=== PATIENT | male | born 1965 | race Caucasian/White ===

== ENCOUNTER 2021-10-05 19:18 | Emergency (ER) | payer MEDICARE, SELFPAY ==
[2021-10-05 19:39] VITALS: BP 138/93; PULSE 103; RESP 16; TEMP 37.6; O2SAT 95; BMI 27.4
--- NOTE | 2021-10-05 20:15 | CTR_ITS ---
PROCEDURE INFORMATION: Exam: CT Angiography Head With Contrast, Arteriography Exam date and time: 10/05/2021 10:14 PM Age: 56 years old Clinical indication: Dizziness and giddiness; Prior surgery; Surgery type: Cervical fusion; Patient HX: C/O light headedness. History of parkinsons. ; Additional info: Light-headedness TECHNIQUE: Imaging protocol: Computed tomography angiography of the head with contrast. Exam focused on the arteries. 3D rendering (Not supervised by radiologist): MIP and/or 3D reconstructed images were created by the technologist. Radiation optimization: All CT scans at this facility use at least one of these dose optimization techniques: automated exposure control; mA and/or kV adjustment per patient size (includes targeted exams where dose is matched to clinical indication); or iterative reconstruction. Contrast material: OMNI 350; Contrast volume: 95 ml; Contrast route: INTRAVENOUS (IV); COMPARISON: CT head wo con* [id number] 10/05/2021 10:10 PM RADIATION DOSE METRICS: Total DLP (mGy-cm): 1990.08 FINDINGS: ANTERIOR CIRCULATION: Right internal carotid artery: Unremarkable. Intracranial segment is patent with no significant stenosis. No aneurysm. Right middle cerebral artery: Unremarkable. No occlusion or significant stenosis. No aneurysm. Right anterior cerebral artery: Unremarkable. No occlusion or significant stenosis. No aneurysm. Left internal carotid artery: Unremarkable. Intracranial segment is patent with no significant stenosis. No aneurysm. Left middle cerebral artery: Unremarkable. No occlusion or significant stenosis. No aneurysm. Left anterior cerebral artery: Unremarkable. No occlusion or significant stenosis. No aneurysm. POSTERIOR CIRCULATION: Right vertebral artery: Unremarkable. No occlusion or significant stenosis. No aneurysm. Left vertebral artery: Unremarkable. No occlusion or significant stenosis. No aneurysm. Basilar artery: Unremarkable. No occlusion or significant stenosis. No aneurysm. Right posterior cerebral artery: Unremarkable. No occlusion or significant stenosis. No aneurysm. Left posterior cerebral artery: Unremarkable. No occlusion or significant stenosis. No aneurysm. Brain: No definite mass, mass effect, or midline shift. Cerebral ventricles: No ventriculomegaly. Bones/joints: Unremarkable. No acute fracture. Soft tissues: Unremarkable. PROCEDURE INFORMATION: Exam: CT Angiography Neck With Contrast Exam date and time: 10/05/2021 10:14 PM Age: 56 years old Clinical indication: Dizziness and giddiness; Prior surgery; Surgery type: Cervical fusion; Patient HX: C/O light headedness. History of parkinsons. ; Additional info: Light-headedness TECHNIQUE: Imaging protocol: Computed tomography angiography of the neck with contrast. 3D rendering (Not supervised by radiologist): MIP and/or 3D reconstructed images were created by the technologist. Radiation optimization: All CT scans at this facility use at least one of these dose optimization techniques: automated exposure control; mA and/or kV adjustment per patient size (includes targeted exams where dose is matched to clinical indication); or iterative reconstruction. Contrast material: OMNI 350; Contrast volume: 95 ml; Contrast route: INTRAVENOUS (IV); COMPARISON: CT head wo con* [id number] 10/05/2021 10:10 PM RADIATION DOSE METRICS: Total DLP (mGy-cm): 1989. FINDINGS: Right common carotid artery: No stenosis. No dissection or occlusion. Right internal carotid artery: No stenosis of the extracranial segment. No dissection or occlusion. Right external carotid artery: No occlusion or stenosis of the origin. Left common carotid artery: No stenosis. No dissection or occlusion. Left internal carotid artery: No stenosis of the extracranial segment. No dissection or occlusion. Left external carotid artery: No occlusion or stenosis of the origin. Right vertebral artery: No stenosis. No dissection or occlusion. Left vertebral artery: No stenosis. No dissection or occlusion. Soft tissues: Normal. No significant soft tissue swelling. Bones/joints: No acute fracture. Multilevel anterior and posterior cervical spine fusion. Unremarkable alignment. CT/CT angio headneck* [id number] IMPRESSION: No large vessel stenosis or occlusion. IMPRESSION: No carotid artery stenosis or occlusion. REFERENCES: NASCET CRITERIA. The degree of internal carotid artery stenosis is based on NASCET criteria. Normal is no stenosis. Mild is less than 50% stenosis. Moderate is 50-69% stenosis. Severe is 70% to 99% stenosis. Total occlusion is no detectable patent lumen.
--- NOTE | 2021-10-05 20:15 | CTR_ITS ---
PROCEDURE INFORMATION: Exam: CT Head Without Contrast Exam date and time: 10/05/2021 10:10 PM Age: 56 years old Clinical indication: Dizziness; Additional info: Light-headedness TECHNIQUE: Imaging protocol: Computed tomography of the head without contrast. Radiation optimization: All CT scans at this facility use at least one of these dose optimization techniques: automated exposure control; mA and/or kV adjustment per patient size (includes targeted exams where dose is matched to clinical indication); or iterative reconstruction. COMPARISON: No relevant prior studies available. RADIATION DOSE METRICS: Total DLP (mGy-cm): 727 FINDINGS: Brain: Diffuse cerebral cortical atrophy. No hemorrhage. Unremarkable white matter. No mass effect. Cerebral ventricles: No ventriculomegaly. Paranasal sinuses: Visualized sinuses are unremarkable. No fluid levels. Mastoid air cells: Visualized mastoid air cells are well aerated. Bones/joints: Unremarkable. No acute fracture. Soft tissues: Unremarkable. CT/CT head wo con* [id number] IMPRESSION: No acute intracranial abnormality.
--- NOTE | 2021-10-05 20:15 | ECG_ITS ---
[facility] Test Date: 2021-10-05 Pat Name: Jude Burden Department: Room: Gender: Male Sign Maintenance: : 1965 Requested By: Morenita Mosley Order Number: [id number] Isabel MD: Miguelina Gupta M.D. Measurements Intervals [place] Rate: 97 P: 51 MD: 156 QRS: -9 QRSD: 101 T: 30 QT: 338 QTc: 430 Interpretive Statements SINUS RHYTHM MODERATE VOLTAGE CRITERIA FOR LVH, CONSIDER NORMAL VARIANT [MEETS CRITERIA IN ONE OF: R(aVL), S(V1), R(V5), R(V5/V6)+S(V1)] No previous ECG available for comparison Electronically Signed On 10-06-2021 6:07:24 CDT by Miguelina Gupta M.D. [id number]
--- NOTE | 2021-10-05 20:15 | XRR_ITS ---
PROCEDURE INFORMATION: Exam: XR Chest Exam date and time: 10/05/2021 8:21 PM Age: 56 years old Clinical indication: Chest wall pain; Additional info: Chest pain TECHNIQUE: Imaging protocol: XR of the chest. Views: 1 view. COMPARISON: No relevant prior studies available. FINDINGS: Lungs: Unremarkable. No consolidation. Pleural spaces: Unremarkable. No pleural effusion. No pneumothorax. Heart/Mediastinum: Unremarkable. No cardiomegaly. Bones/joints: Lower cervical spine fusion noted. No thoracic fractures. XR/XR chest 1V portable [id number] IMPRESSION: Negative exam. No acute abnormality.
--- NOTE | 2021-10-05 20:25 | ED_ITS ---
HPI - General Adult General: Chief complaint: Shortness of Breath/Dyspnea Stated complaint: Parkinsons acting up, feet hurting Time Seen by Provider: 10/05/21 19:59 History of Present Illness: Patient is a 56-year-old male with history of Parkinson's disease presenting to the emergency room with 2 complaints today. Patient tells me that for the last 2 weeks, he has bilateral leg cramping and pain. Patient says that the pain is worse at night. In addition, in the last 2 days, patient has experienced lightheadedness. Patient tells me that he has had multiple episodes of brief sensation of lightheadedness. He had lightheadedness episodes not accompanied by chest pain pain, shortness of breath, vertigo sensation, or any focal neurological weakness including facial droop, slurred speech, hoarseness of voice, or vision changes. Patient's reports that throughout the day, he has had 3 episodes of sharp chest pain lasting for few seconds at a time. Patient denies any exertional chest pain pleuritic chest pain, stabbing chest pain radiating towards the back. Patient denies any leg swelling. Patient denies any abdominal pain, nausea/vomiting, fever/chills, diaphoresis, other abdominal complaints or complaints. Onset: 2 weeks of leg pain b/l, 2 days of light-headedness Duration:ongoing/ intermittent Location:home Severity:moderate Associated symptoms: Deny chest pain, dyspnea, nausea, rash, palpitations or vomiting Review of Systems Const: Reports: other (+light-headedness); Denies: fever(s) or chills Eyes: Denies: change in vision ENMT: Denies: mouth pain Card: Denies: chest pain or palpitations Resp: Denies: dyspnea or non-productive cough GI: Denies: abdominal pain, nausea, vomiting or diarrhea : Denies: dysuria Musc: Reports: extremity pain (+b/l leg pain) Skin/Breast: Denies: rash or new lesions Neuro: Denies: weakness in extremities Psych: Reports: other (Normal mood) [place]/Lymph: Denies: easy bruising [facility] ED PFSH: Medical History (Updated 10/05/21 @ 20:28 by Morenita Mosley MD) Parkinsons disease Social History (Updated 10/05/21 @ 20:29 by Morenita Mosley MD) Smoking and tobacco status: never smoked Alcohol intake: former Physical Exam Const: COMMON NORMALS: alert HENMT: COMMON NORMALS: atraumatic HEAD & SCALP: atraumatic MOUTH: moist mucous membranes not abnormal Eye: COMMON NORMALS: EOMs intact bilaterally and conjunctivae normal CONJUNCTIVA: Yes conjunctivae normal Neck/C-Spine: COMMON NORMALS: full ROM and supple Resp: COMMON NORMALS: normal respiratory effort and clear to auscultation bilaterally AUSCULTATION: clear to auscultation bilaterally Cardio: COMMON NORMALS: regular rate RATE: regular rate GI: COMMON NORMALS: Soft to palpation and non-tender PALPATION: Yes Soft to palpation Extremity: COMMON NORMALS: full ROM Neuro: SENSORIUM/ORIENTATION: Yes alert MOTOR EXAM: No Abnormal motor strength present and Other motor observations present (no focal motor deficits) OTHER: Mental status? Awake, alert, and oriented to self, year, month, location, and situation.? Following simple axial and appendicular commands.? Has appropriate fund of knowledge, comprehension, and insight.? Able to recall and understands pertinent aspects of medical history and current treatment status.? ? Language? Speech is fluent without word-finding difficulties.? Intact naming, expression, weekend receptionist, and repetition.? ? Cranial nerves? 2,3,4,6: PERRL, EOMI with no nystagmus. 5: Intact sensation to light touch, symmetric? 7: Smile symmetrical, no facial droop.? 8: Hearing grossly intact.? 9,10: Normal palate movement.? 11: Normal strength in trapezius bilaterally 12: Tongue protrudes midline.? ? Motor examination? Normal bulk & tone. Strength as follows (R/L): Delts (5/5), Biceps (5/5), Triceps (5/5), Wrist ext (5/5), hip flexors (5/5), plantarflexors (5/5), dorsiflexors (5/5). ? Sensation? Light Touch: Grossly intact and equal in upper and lower extremities bilaterally? Romberg: Negative.? Distal joint position sense intact ? Coordination? [id number]-finger movements intact without dysmetria or past-pointing.? Rapid fingertaps: preserved amplitude without decriment.? No tremor, myoclonus or truncal ataxia.? ? Gait/stance? Steady, normal narrow base gait with appropriate arm swing and turning.? Tandem gait without hesitation or loss of balance. Psych: COMMON NORMALS: speech normal SPEECH: Yes normal speech MOOD & AFFECT: Yes euthymic mood Course Vital Signs: Vital signs: Vital Signs Temperature 99.6 F 10/05/21 19:39 Pulse Rate 89 10/06/21 00:10 Respiratory Rate 18 10/06/21 00:10 Blood Pressure 148/99 10/06/21 00:10 Pulse Oximetry 97 10/06/21 00:10 MDM - General Adult Medical Decision Making 56-year-old male with a history of Parkinson's disease presenting to the emergency room with 2 weeks of leg pain, 2 days of lightheadedness, shortness of breath and intermittent chest pain. On physical exam, patient is neurologically intact. Hemodynamically stable. Patient with no acute tachycardia in triage however on arrival, patient's normal heart rate. EKG is nonischemic. Troponin x2 with with delta <5. CT head./ CTA head+ negative negative for any acute finding. I performed shared decision-making with patient regarding admission versus disc harge today, and patient prefers to be discharged. I explained the risks of leaving the [facility] today including possible arrhythmia, [place], and even . Patient verbalizes understanding of these discussed risk and elect for the alternative of going home with close followup with PCP and Cardiology. Patient verbalizes understanding to return for any worsening symptoms including lightheadedness, focal weakness, passing out, loss of consciousness, chest pain, shortness, or any new extreme complaints I have given patient follow up with our community case manager to be seen by our outpatient Cardiology for further cardiac evaluation. Patient aware of a call from our community case manager to schedule for appointment(s) and verbalizes understanding of the importance of following up. Disposition: Discharge. Patient counseled regarding diagnostic impression, treatment plan. Patient given ED strict return precautions to return for continuation, worsening, or development of new symptoms. Instructed to f/u w/ PCP and Cardiology regarding symptoms today. Patient verbalized understanding. Patient is given strict return precaution for any signs of weakness, chest pain, difficulty breathing, or any new or concerning complaints. Lab Data : 10/05/21 20:40 10/05/21 20:40 Radiology Impressions Chest X-Ray 10/05/21 20:15 IMPRESSION: Negative exam. No acute abnormality. Head CT 10/05/21 20:15 IMPRESSION: No acute intracranial abnormality. Head/Neck CTA 10/05/21 20:15 IMPRESSION: No large vessel stenosis or occlusion. IMPRESSION: No carotid artery stenosis or occlusion. REFERENCES: NASCET CRITERIA. The degree of internal carotid artery stenosis is based on NASCET criteria. Normal is no stenosis. Mild is less than 50% stenosis. Moderate is 50-69% stenosis. Severe is 70% to 99% stenosis. Total occlusion is no detectable patent lumen. Laboratory Results WBC 11.8 10^3/uL (4.0-10.0) H 10/05/21 20:40 RBC 5.69 10^6/uL (4.1-5.3) H 10/05/21 20:40 Hgb 16.4 g/dL (11.7-16.6) 10/05/21 20:40 Hct 51.4 % (42.0-52.0) 10/05/21 20:40 MCV 90.3 fl (80-94) 10/05/21 20:40 MCH 28.8 pg (28.0-34.0) 10/05/21 20:40 MCHC 31.9 g/dL (30.0-36.0) 10/05/21 20:40 RDW 14.9 % (12.1-15.1) 10/05/21 20:40 Plt Count 305 10^3/cmm (130-400) 10/05/21 20:40 MPV 9.3 fL (7.4-10.4) 10/05/21 20:40 Neut % (Auto) 81.7 % 10/05/21 20:40 Lymph % (Auto) 12.1 % 10/05/21 20:40 [place] % (Auto) 4.9 % 10/05/21 20:40 Eos % (Auto) 0.6 % 10/05/21 20:40 Baso % (Auto) 0.4 % 10/05/21 20:40 Neut # (Auto) 9.63 10^3/uL (1.8-7.7) H 10/05/21 20:40 Lymph # (Auto) 1.4 10^3/uL (0.8-4.8) 10/05/21 20:40 [place] # (Auto) 0.6 10^3/uL (0.2-0.9) 10/05/21 20:40 Eos # (Auto) 0.1 10^3/uL (0.0-0.8) 10/05/21 20:40 Baso # (Auto) 0.1 10^3/uL (0.0-0.1) 10/05/21 20:40 Nucleated RBC % (auto) 0 % 10/05/21 20:40 Nucleated RBCs # 0.0 /100WBC 10/05/21 20:40 D-Dimer 0.51 ug/mIFEU (0-0.59) 10/05/21 20:40 Sodium 140 mmol/L (136-145) 10/05/21 20:40 Potassium 3.7 mmol/L (3.5-5.1) 10/05/21 20:40 Chloride 100 mmol/L (98-107) 10/05/21 20:40 Carbon Dioxide 27 mmol/L (22-29) 10/05/21 20:40 Anion Gap 16.7 (5-19) 10/05/21 20:40 BUN 9 mg/dL (6-20) 10/05/21 20:40 Creatinine 0.7 mg/dL (0.7-1.2) 10/05/21 20:40 GFR Calculation 116.2 mL/min (90-130) 10/05/21 20:40 Glucose 96 mg/dL (65-115) 10/05/21 20:40 Calculated Osmolality 289 mOsm/kg (285-295) 10/05/21 20:40 Calcium 10.2 mg/dL (8.5-10.5) 10/05/21 20:40 Total Bilirubin 0.3 mg/dL (0.15-1.2) 10/05/21 20:40 AST 15 U/L (0-40) 10/05/21 20:40 ALT < 5 U/L (0-41) 10/05/21 20:40 Alkaline Phosphatase 81 IU/L (40-130) 10/05/21 20:40 Troponin T Baseline 8 ng/L (0-15) 10/05/21 20:40 Troponin T 120 Minute 8.40 ng/L (0-15) 10/05/21 22:53 Delta Troponin T 0.40 ABS# (0-10) 10/05/21 22:53 Total Protein 7.3 g/dL (6.6-8.7) 10/05/21 20:40 Albumin 4.3 g/dL (3.5-5.2) 10/05/21 20:40 Globulin 3.0 g/dL (1.3-4.6) 10/05/21 20:40 Lipase 30 U/L (13-60) 10/05/21 20:40 Imaging Data Other Imaging: Radiologist's impression: [email or web address] [address] [place] [address] CT Scan Report Signed Patient: Jude Burden Unit #: [id number] : 1965 Age/Sex: 56 / M ADM Date: 10/05/21 Loc: ER Room/Bed: Attending Dr: Ordering Provider/Ordering MD: Morenita Mosley MD Date of Service: 10/05/21 Procedure(s): CT angio headneck* [id number] Accession Number(s): [id number] Report Number: [id number] PROCEDURE INFORMATION: Exam: CT Angiography Head With Contrast, Arteriography Exam date and time: 10/05/2021 10:14 PM Age: 56 years old Clinical indication: Dizziness and giddiness; Prior surgery; Surgery type: Cervical fusion; Patient HX: C/O light headedness. History of parkinsons. ; Additional info: Light-headedness TECHNIQUE: Imaging protocol: Computed tomography angiography of the head with contrast. Exam focused on the arteries. 3D rendering (Not supervised by radiologist): MIP and/or 3D reconstructed images were created by the technologist. Radiation optimization: All CT scans at this facility use at least one of these dose optimization techniques: automated exposure control; mA and/or kV adjustment per patient size (includes targeted exams where dose is matched to clinical indication); or iterative reconstruction. Contrast material: OMNI 350; Contrast volume: 95 ml; Contrast route: INTRAVENOUS (IV);? COMPARISON: CT head wo con* [id number] 10/05/2021 10:10 PM RADIATION DOSE METRICS: Total DLP (mGy-cm): FINDINGS: ANTERIOR CIRCULATION: Right internal carotid artery: Unremarkable. Intracranial segment is patent with no significant stenosis. No aneurysm. Right middle cerebral artery: Unremarkable. No occlusion or significant stenosis. No aneurysm.? Right anterior cerebral artery: Unremarkable. No occlusion or significant stenosis. No aneurysm.? Left internal carotid artery: Unremarkable. Intracranial segment is patent with no significant stenosis. No aneurysm. Left middle cerebral artery: Unremarkable. No occlusion or significant stenosis. No aneurysm.? Left anterior cerebral artery: Unremarkable. No occlusion or significant stenosis. No aneurysm.? POSTERIOR CIRCULATION: Right vertebral artery: Unremarkable. No occlusion or significant stenosis. No aneurysm.? Left vertebral artery: Unremarkable. No occlusion or significant stenosis. No aneurysm.? Basilar artery: Unremarkable. No occlusion or significant stenosis. No aneurysm. Right posterior cerebral artery: Unremarkable. No occlusion or significant stenosis. No aneurysm.? Left posterior cerebral artery: Unremarkable. No occlusion or significant stenosis. No aneurysm.? Brain: No definite mass, mass effect, or midline shift. Cerebral ventricles: No ventriculomegaly. Bones/joints: Unremarkable. No acute fracture. Soft tissues: Unremarkable. PROCEDURE INFORMATION: Exam: CT Angiography Neck With Contrast Exam date and time: 10/05/2021 10:14 PM Age: 56 years old Clinical indication: Dizziness and giddiness; Prior surgery; Surgery type: Cervical fusion; Patient HX: C/O light headedness. History of parkinsons. ; Additional info: Light-headedness TECHNIQUE: Imaging protocol: Computed tomography angiography of the neck with contrast. 3D rendering (Not supervised by radiologist): MIP and/or 3D reconstructed images were created by the technologist. Radiation optimization: All CT scans at this facility use at least one of these dose optimization techniques: automated exposure control; mA and/or kV adjustment per patient size (includes targeted exams where dose is matched to clinical indication); or iterative reconstruction. Contrast material: OMNI 350; Contrast volume: 95 ml; Contrast route: INTRAVENOUS (IV);? COMPARISON: CT head wo con* [id number] 10/05/2021 10:10 PM RADIATION DOSE METRICS: Total DLP (mGy-cm): FINDINGS: Right common carotid artery: No stenosis. No dissection or occlusion. Right internal carotid artery: No stenosis of the extracranial segment. No dissection or occlusion. Right external carotid artery: No occlusion or stenosis of the origin.? Left common carotid artery: No stenosis. No dissection or occlusion. Left internal carotid artery: No stenosis of the extracranial segment. No dissection or occlusion. Left external carotid artery: No occlusion or stenosis of the origin.? Right vertebral artery: No stenosis. No dissection or occlusion. Left vertebral artery: No stenosis. No dissection or occlusion. Soft tissues: Normal. No significant soft tissue swelling. Bones/joints: No acute fracture.? Multilevel anterior and posterior cervical spine fusion.? Unremarkable alignment. CT/CT angio headneck* [id number] IMPRESSION: No large vessel stenosis or occlusion. ? ? IMPRESSION: No carotid artery stenosis or occlusion. ? REFERENCES: NASCET CRITERIA. The degree of internal carotid artery stenosis is based on NASCET criteria. Normal is no stenosis. Mild is less than 50% stenosis. Moderate is 50-69% stenosis. Severe is 70% to 99% stenosis. Total occlusion is no detectable patent lumen. ? Dictated By: Kelechi García Signed By: Kelechi Garcaí Signed Date/Time: 10/05/212230 DD/ [address] [address] [address] Scan Report Signed Patient: Jude Burden Unit #: [id number] : 1965 Age/Sex: 56 / M ADM Date: 10/05/21 Loc: ER Room/Bed: Attending Dr: Ordering Provider/Ordering MD: Morenita Mosley MD Date of Service: 10/05/21 Procedure(s): CT head wo con* [id number] Accession Number(s): [id number] Report Number: [id number] PROCEDURE INFORMATION: Exam: CT Head Without Contrast Exam date and time: 10/05/2021 10:10 PM Age: 56 years old Clinical indication: Dizziness; Additional info: Light-headedness TECHNIQUE: Imaging protocol: Computed tomography of the head without contrast. Radiation optimization: All CT scans at this facility use at least one of these dose optimization techniques: automated exposure control; mA and/or kV adjustment per patient size (includes targeted exams where dose is matched to clinical indication); or iterative reconstruction. COMPARISON: No relevant prior studies available. RADIATION DOSE METRICS: Total DLP (mGy-cm): 727 FINDINGS: Brain: Diffuse cerebral cortical atrophy. No hemorrhage. Unremarkable white matter. No mass effect. Cerebral ventricles: No ventriculomegaly. Paranasal sinuses: Visualized sinuses are unremarkable. No fluid levels. Mastoid air cells: Visualized mastoid air cells are well aerated. Bones/joints: Unremarkable. No acute fracture. Soft tissues: Unremarkable. CT/CT head wo con* [id number] IMPRESSION: No acute intracranial abnormality. ? Dictated By: Kelechi García Signed By: Kelechi García Signed Date/Time: 10/05/212225 DD/ [address] [address] XRay Report Signed Patient: Jude Burden Unit #: [id number] : 1965 Age/Sex: 56 / M ADM Date: 10/05/21 Loc: ER Room/Bed: Attending Dr: Ordering Provider/Ordering MD: Morenita Mosley MD Date of Service: 10/05/21 Procedure(s): XR chest 1V portable [id number] Accession Number(s): [id number] Report Number: [id number] PROCEDURE INFORMATION: Exam: XR Chest Exam date and time: 10/05/2021 8:21 PM Age: 56 years old Clinical indication: Chest wall pain; Additional info: Chest pain TECHNIQUE: Imaging protocol: XR of the chest. Views: 1 view. COMPARISON: No relevant prior studies available. FINDINGS: Lungs: Unremarkable. No consolidation. Pleural spaces: Unremarkable. No pleural effusion. No pneumothorax. Heart/Mediastinum: Unremarkable. No cardiomegaly. Bones/joints: Lower cervical spine fusion noted. No thoracic fractures. XR/XR chest 1V portable [id number] IMPRESSION: Negative exam. No acute abnormality. ? Dictated By: Kelechi García Signed By: Kelechi García Signed Date/Time: 10/05/212126 DD/ 20 Discharge Plan Discharge Patient Disposition: Home Clinical Impression: Light headedness, Dyspnea Condition: Stable Prescriptions: No Action carbidopa-levodopa 25-250 mg Tablet 1 tab PO QID 0RF omeprazole 40 mg Capsule,Delayed Release(Dr/Ec) 40 mg PO DAILY 0RF colchicine 0.6 mg Tablet 0.6 mg PO DAILY PRN (Reason: gout) 0RF Discharge Orders: Discharge ED (Routine); Ordered 10/05/21 Ordered By: Morenita Mosley Discharge Diet: Advance as tolerated Discharge Activity: Increase activity as tolerated Patient Instructions: Lightheadedness (ED) Activity Restrictions/Additional Instructions: Our community case manager will have you follow-up with Cardioogy in the next few days for evaluation of chest pain and light-headedness. You would be expected to have a phone call with our community case manager who will put you on the schedule. You can expect a call from us in the next 2-3 days. If you don't hear from us, call us back in the emergency room at [phone]. Come back to the emergency room if your chest pain worsens, have any fever or chills, worsening shortness of breath, worsening exertional lightheadedness, or any new or concerning complaints. 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
[2021-10-05 20:55] LABS: Basophils # 0.1 10^3/uL (0.0-0.1); Basophils % 0.4 %; Eosinophils # 0.1 10^3/uL (0.0-0.8); Eosinophils % 0.6 %; Hematocrit 51.4 % (42.0-52.0); Hemoglobin 16.4 g/dL (11.7-16.6); Lymphocytes # 1.4 10^3/uL (0.8-4.8); Lymphocytes % 12.1 %; Mean Corpuscular HGB Conc 31.9 g/dL (30.0-36.0); Mean Corpuscular Hemoglobin 28.8 pg (28.0-34.0); Mean Corpuscular Volume 90.3 fl (80-94); Mean Platelet Volume 9.3 fL (7.4-10.4); Monocytes # 0.6 10^3/uL (0.2-0.9); Monocytes % 4.9 %; Neutrophils # 9.63 10^3/uL (1.8-7.7); Neutrophils % 81.7 %; Nucleated Red Blood Cells % 0 %; Platelet Count 305 10^3/cmm (130-400); Red Blood Count 5.69 10^6/uL (4.1-5.3); Red Cell Distribution Width 14.9 % (12.1-15.1); White Blood Count 11.8 10^3/uL (4.0-10.0)
[2021-10-05 21:15] LABS: Alanine Aminotransferase < 5 U/L (0-41); Albumin Level 4.3 g/dL (3.5-5.2); Alkaline Phosphatase 81 IU/L (40-130); Aspartate Amino Transferase 15 U/L (0-40); Blood Urea Nitrogen 9 mg/dL (6-20); Calcium 10.2 mg/dL (8.5-10.5); Carbon Dioxide 27 mmol/L (22-29); Chloride 100 mmol/L (98-107); Glomerular Filtration Rate 116.2 mL/min (90-130); Glucose 96 mg/dL (65-115); Lipase 30 U/L (13-60); Osmolality Calculated 289 mOsm/kg (285-295); Sodium 140 mmol/L (136-145); Total Bilirubin 0.3 mg/dL (0.15-1.2); Total Protein 7.3 g/dL (6.6-8.7)
[2021-10-05 21:16] LABS: Troponin(5th) Baseline 8 ng/L (0-15)
[2021-10-05 21:23] LABS: Anion Gap 16.7 (5-19); Potassium 3.7 mmol/L (3.5-5.1)
[2021-10-05 21:24] LABS: D Dimer 0.51 ug/mIFEU (0-0.59)
[2021-10-05] MEDS: morphine 4 mg/mL SDV 1 mL IVP (21:41)
[2021-10-05] MEDS: sodium chloride 0.9% 1,000 ML 999 ML IV (21:41)
[2021-10-05] MEDS: acetaminophen 500 mg Tablet PO (21:41)
[2021-10-05 21:44] VITALS: PULSE 85; RESP 18; O2SAT 95
[2021-10-05] MEDS: iohexol 350 mg/mL 100 mL Btl IV (22:13)
[2021-10-06 00:10] VITALS: BP 148/99; PULSE 89; RESP 18; O2SAT 97
--- NOTE | 2021-10-06 09:55 | DCPLANNER ---
Addendum entered by Rosemarie Lechuga 11/02/21 10:08: Patient had a follow up appointment scheduled for 11.01.21 with [facility] - patient did not attend appointment. Addendum entered by Rosemarie Lechuga 10/12/21 16:40: Patient has a follow up appointment scheduled for Monday, November 01, 2021 at 2:[address] El at [facility]. manager strategic development called patient and gave patient the appointment information. Original Note: manager strategic development had message to schedule a follow up appointment for patient with heart care. manager strategic development sent patients information to the front office staff at [facility]. Patients information will be printed and reviewed. Clinic will notify heel caser of the scheduled appointment. manager strategic development will call patient with appointment information.
== END 2021-10-06 00:11 | disposition home or self-care (01) ==
PROVIDERS: Emergency Provider Emergency Medicine
DX: R06.00 Dyspnea, unspecified (principal); R42 Dizziness and giddiness; G20 Parkinson's disease
CPT/HCPCS: 70450; 70496; 70498; 71045; 80053; 83690; 84484; 85025; 85378; 93005; 96361; 96374; 99284; J2270; J7030; Q9967

== ENCOUNTER 2021-11-05 13:41 | Emergency (ER) | payer MEDICARE, MEDICAID, SELFPAY ==
[2021-11-05 13:55] VITALS: BP 146/119; PULSE 80; RESP 16; O2SAT 95; BMI 27.4
--- NOTE | 2021-11-05 14:02 | ECG_ITS ---
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 Measurements Intervals [place] Rate: 88 P: 58 FL: 157 QRS: 8 QRSD: 92 T: 43 QT: 351 QTc: 425 Interpretive Statements SINUS RHYTHM Compared to ECG 10/05/2021 20:28:06 No significant changes Electronically Signed On 11-06-2021 8:04:53 CDT by Rashad El M.D. [id number]
--- NOTE | 2021-11-05 14:02 | XRR_ITS ---
PROCEDURE INFORMATION: Exam: XR Chest Exam date and time: 11/05/2021 2:12 PM Age: 56 years old Clinical indication: Pain; Chest pressure; Additional info: Cp TECHNIQUE: Imaging protocol: XR of the chest. Views: 1 view. COMPARISON: CR (CHEST, ) 10/05/2021 8:21 PM FINDINGS: Lungs: Unremarkable. No consolidation. Pleural spaces: Unremarkable. No pleural effusion. No pneumothorax. Heart/Mediastinum: Unremarkable. No cardiomegaly. Bones/joints: Partially visualized spinal fusion hardware in the lower cervical spine. Visualized osseous structures are intact. XR/XR chest 1V portable [id number] IMPRESSION: No acute findings.
--- NOTE | 2021-11-05 14:09 | W.ED.ABDPA2 ---
HPI - Abdominal Pain General: Chief Complaint: Abdominal Pain Stated Complaint: headache, chest/abd pain Time Seen by Provider: 11/05/21 14:00 Source: patient Mode of arrival: ambulatory Limitations: no limitations History of Present Illness: 56-year-old male states that he was seen here a month ago for chest pain had a normal work-up he supposed to follow-up with cardiology and appointment Saturday but states he missed due to moving. He states that he woke up again this morning having some pain in his chest mainly left chest and left upper abdomen he is also been having a headache he states his headaches have been chronic as well he denies any worsening proving factors states pain is a 6 out of 10 currently denies any vomiting. Associated Symptoms: Denies chills, dysuria and fever(s) Review of Systems Const: Denies: fever(s), chills, body aches or change in appetite Eyes: Denies: blurry vision or eye discomfort ENMT: Denies: throat pain or dental pain Card: Reports: chest pain Resp: Denies: dyspnea GI: Reports: abdominal pain : Denies: dysuria Musc: Denies: neck pain or back pain Skin/Breast: Denies: rash Neuro: Reports: headache(s) Psych: Denies: depression [place]/Lymph: Denies: easy bruising All/Imm: Denies: urticaria PFSH ED PFSH: Medical History Parkinsons disease Social History Smoking and tobacco status: never smoked Alcohol intake: former Physical Exam Const: COMMON NORMALS: no acute distress, patient oriented x3 and healthy appearing HENMT: COMMON NORMALS: normocephalic and atraumatic HEAD & SCALP: normocephalic and atraumatic Eye: COMMON NORMALS: Equal, round and reactive pupils present and EOMs intact bilaterally PUPIL: Yes Equal, round and reactive pupils present Neck/C-Spine: COMMON NORMALS: full ROM and supple Chest: COMMONS NORMALS: normal inspection of the chest and normal palpation of entire chest wall Resp: COMMON NORMALS: normal respiratory effort, No retractions, No use of accessory muscles and clear to auscultation bilaterally AUSCULTATION: clear to auscultation bilaterally Cardio: COMMON NORMALS: regular rate, regular rhythm and No murmurs present (Cardio) RATE: regular rate RHYTHM: regular rhythm GI: COMMON NORMALS: Normal to inspection, nondistended, normoactive bowel sounds present, Soft to palpation, non-tender and no masses PALPATION: Yes Soft to palpation Extremity: COMMON NORMALS: normal to inspection and full ROM Neuro: COMMON NORMALS: patient oriented x3, moves all extremities and no focal motor deficits Psych: COMMON NORMALS: mental status grossly normal, Normal thought process present and cooperative THOUGHT PROCESS: Normal thought process present Skin: COMMON NORMALS: no rashes or lesions noted and no wounds GENERAL SKIN EXAM: no rashes or lesions noted Course Vital Signs: Vital signs: Vital Signs Pulse Rate 80 11/05/21 13:55 Respiratory Rate 16 11/05/21 14:55 Blood Pressure 146/119 11/05/21 13:55 Pulse Oximetry 95 11/05/21 13:55 MDM - Abdominal Pain Medical Decision Making Patient presents here with chest and abdominal pains atypical in nature initial repeat troponins here are all negative x-ray is negative as well he feels improved we will get him another follow-up with cardiology he is return if worsening he understands agrees to plan. Lab Data : 11/05/21 14:31 11/05/21 14:31 Labs/Radiology: Radiology Impressions Chest X-Ray 11/05/21 14:02 IMPRESSION: No acute findings. Laboratory Results WBC 5.8 10^3/uL (4.0-10.0) 11/05/21 14:31 RBC 6.27 10^6/uL (4.1-5.3) H 11/05/21 14:31 Hgb 18.0 g/dL (11.7-16.6) H 11/05/21 14:31 Hct 54.6 % (42.0-52.0) H 11/05/21 14:31 MCV 87.1 fl (80-94) 11/05/21 14:31 MCH 28.7 pg (28.0-34.0) 11/05/21 14:31 MCHC 33.0 g/dL (30.0-36.0) 11/05/21 14:31 RDW 14.5 % (12.1-15.1) 11/05/21 14:31 Plt Count 239 10^3/cmm (130-400) 11/05/21 14:31 MPV 9.1 fL (7.4-10.4) 11/05/21 14:31 Neut % (Auto) 58.4 % 11/05/21 14:31 Lymph % (Auto) 30.7 % 11/05/21 14:31 Maverick % (Auto) 6.6 % 11/05/21 14:31 Eos % (Auto) 3.3 % 11/05/21 14:31 Baso % (Auto) 0.7 % 11/05/21 14:31 Neut # (Auto) 3.37 10^3/uL (1.8-7.7) 11/05/21 14: Lymph # (Auto) 1.8 10^3/uL (0.8-4.8) 11/05/21 14: Maverick # (Auto) 0.4 10^3/uL (0.2-0.9) 11/05/21 14: Eos # (Auto) 0.2 10^3/uL (0.0-0.8) 11/05/21 14: Baso # (Auto) 0.0 10^3/uL (0.0-0.1) 11/05/21 14: Nucleated RBC % (auto) 0 % 11/05/21 14: Nucleated RBCs # 0.0 /100WBC 11/05/21 14:31 Sodium 138 mmol/L (136-145) 11/05/21 14:31 Potassium 3.7 mmol/L (3.5-5.1) 11/05/21 14: Chloride 100 mmol/L (98-107) 11/05/21 14: Carbon Dioxide 27 mmol/L (22-29) 11/05/21 14:31 Anion Gap 14.7 (5-19) 11/05/21 14:31 BUN 8 mg/dL (6-20) 11/05/21 14: Creatinine 0.7 mg/dL (0.7-1.2) 11/05/21 14:31 GFR Calculation 116.2 mL/min (90-130) 11/05/21 14:31 Glucose 93 mg/dL (65-115) 11/05/21 14: Calculated Osmolality 284 mOsm/kg (285-295) L 11/05/21 14:31 Calcium 9.2 mg/dL (8.5-10.5) 11/05/21 14:31 Total Bilirubin 0.4 mg/dL (0.15-1.2) 11/05/21 14:31 AST 17 U/L (0-40) 11/05/21 14:31 ALT < 5 U/L (0-41) 11/05/21 14:31 Alkaline Phosphatase 85 IU/L (40-130) 11/05/21 14:31 Troponin T Baseline 9 ng/L (0-15) 11/05/21 14:31 Troponin T 120 Minute 8.32 ng/L (0-15) 11/05/21 16:26 Total Protein 7.9 g/dL (6.6-8.7) 11/05/21 14:31 Albumin 4.6 g/dL (3.5-5.2) 11/05/21 14:31 Globulin 3.3 g/dL (1.3-4.6) 11/05/21 14:31 Lipase 75 U/L (13-60) H 11/05/21 14:31 EKG Data EKG 1: I personally reviewed and interpreted this EKG as follows: EKG interpretation date: 11/05/21 EKG interpretation time: 14:10 Interpretation: nsr hr [address] or t wave abnormalities qrs 92 qtc 396 EKG 2: I personally reviewed and interpreted this EKG as follows: EKG interpretation date: 11/05/21 EKG interpretation time: 17:13 Interpretation: nsr hr [address] or t wave abnormalities qrs 96 qtc 398 Discharge Plan Discharge Patient Disposition: Home Clinical Impression: Chest pain Qualifiers: Chest pain type: unspecified Qualified Code(s): R07.9 - Chest pain, unspecified Abdominal pain Qualifiers: Abdominal location: generalized Qualified Code(s): R10.84 - Generalized abdominal pain Condition: Stable Prescriptions: New docusate sodium 100 mg capsule 100 mg PO TID PRN (Reason: constipation) Qty: 20 0RF No Action carbidopa-levodopa 25-250 mg Tablet 1 tab PO QID 0RF omeprazole 40 mg Capsule,Delayed Release(Dr/Ec) 40 mg PO DAILY 0RF colchicine 0.6 mg Tablet 0.6 mg PO DAILY PRN (Reason: gout) 0RF Discharge Orders: Discharge ED (Routine); Ordered 11/05/21 Ordered By: Heidi Abreu Referrals: Rashad El M.D [Physician] - 1-3 days Discharge Diet: Advance as tolerated Discharge Activity: Resume usual activity Patient Instructions: Chest Pain (ED) Coding Level of Care Code ED Stitch Bonder Machine Operator Helper for Chg Fwd Exam Comprehensive
[2021-11-05 14:34] LABS: Basophils % 0.7 %; Eosinophils # 0.2 10^3/uL (0.0-0.8); Eosinophils % 3.3 %; Hematocrit 54.6 % (42.0-52.0); Lymphocytes # 1.8 10^3/uL (0.8-4.8); Lymphocytes % 30.7 %; Mean Corpuscular Hemoglobin 28.7 pg (28.0-34.0); Mean Corpuscular Volume 87.1 fl (80-94); Mean Platelet Volume 9.1 fL (7.4-10.4); Monocytes # 0.4 10^3/uL (0.2-0.9); Monocytes % 6.6 %; Neutrophils # 3.37 10^3/uL (1.8-7.7); Neutrophils % 58.4 %; Nucleated Red Blood Cells % 0 %; Platelet Count 239 10^3/cmm (130-400); Red Blood Count 6.27 10^6/uL (4.1-5.3); Red Cell Distribution Width 14.5 % (12.1-15.1); White Blood Count 5.8 10^3/uL (4.0-10.0)
[2021-11-05] MEDS: aspirin 81 mg Chew Tablet 324 MG PO (14:36)
[2021-11-05] MEDS: nitroglycerin 0.4 mg sublingual Tablet SUBLINGUAL (14:38)
[2021-11-05 14:55] VITALS: RESP 16
[2021-11-05] MEDS: ondansetron 2 mg/ML SDV 2 mL 4 MG IVP (14:55)
[2021-11-05] MEDS: morphine 4 mg/mL SDV 1 mL IVP (14:55)
[2021-11-05 14:58] LABS: Alanine Aminotransferase < 5 U/L (0-41); Albumin Level 4.6 g/dL (3.5-5.2); Alkaline Phosphatase 85 IU/L (40-130); Anion Gap 14.7 (5-19); Aspartate Amino Transferase 17 U/L (0-40); Blood Urea Nitrogen 8 mg/dL (6-20); Calcium 9.2 mg/dL (8.5-10.5); Carbon Dioxide 27 mmol/L (22-29); Chloride 100 mmol/L (98-107); Globulin 3.3 g/dL (1.3-4.6); Glomerular Filtration Rate 116.2 mL/min (90-130); Glucose 93 mg/dL (65-115); Lipase 75 U/L (13-60); Osmolality Calculated 284 mOsm/kg (285-295); Potassium 3.7 mmol/L (3.5-5.1); Sodium 138 mmol/L (136-145); Total Bilirubin 0.4 mg/dL (0.15-1.2); Total Protein 7.9 g/dL (6.6-8.7)
[2021-11-05 14:59] LABS: Troponin(5th) Baseline 9 ng/L (0-15)
[2021-11-05 16:00] VITALS: BP 135/80; PULSE 75; RESP 17; O2SAT 96
[2021-11-05 17:00] VITALS: BP 134/86; PULSE 69; RESP 16; O2SAT 97
[2021-11-05 17:11] LABS: Troponin 5 2HR 8.32 ng/L (0-15)
[2021-11-05 17:43] LABS: Troponin 5 2HR Delta -0.68 ABS# (0-10)
[2021-11-05 18:11] VITALS: BP 148/95; PULSE 67; RESP 14; O2SAT 96
--- NOTE | 2021-11-05 20:02 | ECG_ITS ---
[facility] Test Date: 2021-11-05 Pat Name: Jude Burden Department: Room: Gender: Male Physicians And Surgeons: : 1965 Requested By: Heidi Abreu Order Number: [id number] Isabel MD: Rashad El M.D. Measurements Intervals [place] Rate: 63 P: 53 [place]: 167 QRS: 17 QRSD: 96 T: 42 QT: 390 QTc: 402 Interpretive Statements SINUS RHYTHM Compared to ECG 11/05/2021 14:10:46 No significant changes Electronically Signed On 11-06-2021 8:06:09 CDT by Rashad El M.D. [id number]
--- NOTE | 2021-11-09 06:02 | DCPLANNER ---
Addendum entered by Rosemarie Lechuga 01/18/22 11:06: Patient had a follow up appointment scheduled with [facility] - patient did attend appointment. Addendum entered by Rosemarie Lechuga 11/12/21 09:21: Patient has a follow up appointment scheduled for Saturday, January 08, 2022 at 1:[address] El at [facility] [place]. Clinic will call patient with appointment information. Addendum entered by Rosemarie Lechuga 11/12/21 09:19: Patient had a follow up appointment scheduled for 11.10.21 with [facility] - patient did attend appointment. Original Note: manager of medical had message to schedule a follow up appointment for patient with [facility]. manager of medical sent patients information to the front office of [facility]. Patients information will be printed and reviewed. Clinic will call patient with appointment information.
== END 2021-11-05 18:20 | disposition home or self-care (01) ==
PROVIDERS: Emergency Provider Emergency Medicine
DX: R07.9 Chest pain, unspecified (principal); R10.9 Unspecified abdominal pain
CPT/HCPCS: 71045; 80053; 83690; 84484; 85025; 93005; 96374; 96375; 99285; J2270; J2405

== ENCOUNTER 2021-12-06 15:21 | Emergency (ER) | payer MEDICARE, MEDICAID, SELFPAY ==
--- NOTE | 2021-12-06 15:24 | ECG_ITS ---
[facility] Test Date: 2021-12-06 Pat Name: Jude Burden Department: Room: Gender: Male Recreational Resort Manager: : 1965 Requested By: Leticia Love Order Number: [id number] Isabel MD: Miguelina Gupta M.D. Measurements Intervals [place] Rate: 89 P: 53 [place]: 152 QRS: -4 QRSD: 79 T: 38 QT: 349 QTc: 426 Interpretive Statements SINUS RHYTHM Compared to ECG 11/05/2021 17:13:59 No significant changes Electronically Signed On 12-06-2021 22:25:14 CDT by Miguelina Gupta M.D. [id number] f
--- NOTE | 2021-12-06 15:24 | XR_ITS ---
WS: [id number] Exam: XR chest 1V portable [id number] Date/Time of Exam: 12/06/2021 3:35 PM Reason For Exam: chest pain Comparison 11/05/2021. The lungs are clear and fully expanded. Normal cardiomediastinal silhouette. Bony structures are inta ct. Fusion hardware noted in the lower cervical and upper thoracic spine. XR/XR chest 1V portable [id number] IMPRESSION: 1. No acute cardiopulmonary finding.
[2021-12-06 15:33] VITALS: BP 151/93; PULSE 89; RESP 18; TEMP 37.2; O2SAT 99; BMI 27.4
[2021-12-06 17:09] LABS: Basophils # 0.1 10^3/uL (0.0-0.1); Basophils % 0.7 %; Eosinophils # 0.2 10^3/uL (0.0-0.8); Eosinophils % 2.5 %; Hematocrit 50.8 % (42.0-52.0); Hemoglobin 17.1 g/dL (11.7-16.6); Lymphocytes # 1.7 10^3/uL (0.8-4.8); Lymphocytes % 25.4 %; Mean Corpuscular HGB Conc 33.7 g/dL (30.0-36.0); Mean Corpuscular Hemoglobin 28.5 pg (28.0-34.0); Mean Corpuscular Volume 84.5 fl (80-94); Mean Platelet Volume 9.8 fL (7.4-10.4); Monocytes # 0.5 10^3/uL (0.2-0.9); Monocytes % 7.7 %; Neutrophils # 4.25 10^3/uL (1.8-7.7); Neutrophils % 63.3 %; Nucleated Red Blood Cells % 0 %; Platelet Count 254 10^3/cmm (130-400); Red Blood Count 6.01 10^6/uL (4.1-5.3); Red Cell Distribution Width 13.9 % (12.1-15.1); White Blood Count 6.7 10^3/uL (4.0-10.0)
[2021-12-06 18:01] LABS: Alanine Aminotransferase < 5 U/L (0-41); Alkaline Phosphatase 94 IU/L (40-130); Anion Gap 14.9 (5-19); Aspartate Amino Transferase 15 U/L (0-40); Blood Urea Nitrogen 22 mg/dL (6-20); Calcium 9.8 mg/dL (8.5-10.5); Carbon Dioxide 24 mmol/L (22-29); Chloride 103 mmol/L (98-107); Globulin 3.6 g/dL (1.3-4.6); Glucose 79 mg/dL (65-115); Osmolality Calculated 288 mOsm/kg (285-295); Potassium 3.9 mmol/L (3.5-5.1); Sodium 138 mmol/L (136-145); Total Bilirubin 0.2 mg/dL (0.15-1.2); Total Protein 7.6 g/dL (6.6-8.7)
[2021-12-06 18:15] LABS: Troponin(5th) Baseline 7 ng/L (0-15)
== END 2021-12-06 16:51 | disposition left against medical advice (07) ==
PROVIDERS: Physician Assistant; Emergency Provider Family Medicine
DX: Z53.21 Procedure and treatment not carried out due to patient leaving prior to being seen by health care provider (principal)
CPT/HCPCS: 71045; 80053; 84484; 85025; 93005

== ENCOUNTER 2021-12-07 21:07 | Emergency (ER) | payer MEDICARE, MEDICAID, SELFPAY ==
--- NOTE | 2021-12-07 21:10 | ECG_ITS ---
[facility] Test Date: 2021-12-07 Pat Name: Jude Burden Department: Room: Gender: Male Director Network Development: : 1965 Requested By: Heidi Abreu Order Number: [id number] Chalo MD: Rashad El M.D. Measurements Intervals [place] Rate: 86 P: 62 NM: 142 QRS: 31 QRSD: 86 T: 51 QT: 349 QTc: 418 Interpretive Statements SINUS RHYTHM Compared to ECG 12/06/2021 15:40:10 No significant changes Electronically Signed On 12-07-2021 22:28:53 CDT by Rashad El M.D. [id number] f
--- NOTE | 2021-12-07 21:10 | XRR_ITS ---
PROCEDURE INFORMATION: Exam: XR Chest Exam date and time: 12/07/2021 10:05 PM Age: 56 years old Clinical indication: Chest wall pain; Additional info: Chest pain radiating to the left, x 3 days TECHNIQUE: Imaging protocol: Radiologic exam of the chest. Views: 1 view. COMPARISON: CR XR chest 1V portable [id number] 12/06/2021 3:44 PM FINDINGS: Lungs: Unremarkable. No consolidation. Pleural spaces: Unremarkable. No pleural effusion. No pneumothorax. Heart/Mediastinum: Unremarkable. No cardiomegaly. Bones/joints: Unremarkable. XR/XR chest 1V portable [id number] IMPRESSION: No acute findings.
[2021-12-07 21:16] VITALS: BP 159/99; PULSE 88; RESP 18; TEMP 36.7; O2SAT 99; BMI 28.3
--- NOTE | 2021-12-07 23:10 | ECG_ITS ---
[facility] Test Date: 2021-12-08 Pat Name: Jude Burden Department: Room: Gender: Male Weight Loss Physician: : 1965 Requested By: Heidi Abreu Order Number: [id number] Isabel MD: Miguelina Gupta M.D. Measurements Intervals [place] Rate: 73 P: 56 [place]: 175 QRS: -1 QRSD: 85 T: 30 QT: 372 QTc: 411 Interpretive Statements SINUS RHYTHM MODERATE VOLTAGE CRITERIA FOR LVH, CONSIDER NORMAL VARIANT [MEETS CRITERIA IN ONE OF: R(aVL), S(V1), R(V5), R(V5/V6)+S(V1)] Compared to ECG 12/07/2021 21:13:15 No significant changes Electronically Signed On 12-08-2021 23:13:43 CDT by Miguelina Gupta M.D. [id number]
--- NOTE | 2021-12-07 23:36 | ED_ITS ---
HPI - Chest Pain General: Chief Complaint: Chest Pain Stated Complaint: Chest Pain Time Seen by Provider: 12/07/21 22:50 Source: patient Mode of arrival: ambulatory Limitations: no limitations History of Present Illness: 56-year-old male has been having chest pain for weeks. This is his third visit here with chest pain he states that he intermittently gets that he states that has been having some high blood pressures as well. He is not on blood pressure medicine at home. He states his pain is very sharp in nature on the right side and goes to his right chest. He denies any shortness of breath he denies any fever. Patient denies any vomiting or diarrhea states pain currently is a 2 out of 10. Associated symptoms: Deny abdominal pain, dyspnea, fever(s), nausea or vomiting Review of Systems Const: Denies: fever(s), chills, body aches or change in appetite Eyes: Denies: blurry vision or eye discomfort ENMT: Denies: throat pain or dental pain Card: Reports: chest pain Resp: Denies: dyspnea GI: Denies: abdominal pain, nausea, vomiting or diarrhea : Denies: dysuria Musc: Denies: neck pain or back pain Skin/Breast: Denies: rash Neuro: Denies: headache(s) Psych: Denies: depression [place]/Lymph: Denies: easy bruising All/Imm: Denies: urticaria PFSH ED PFSH: Medical History Anxiety and depression DDD (degenerative disc disease) GERD (gastroesophageal reflux disease) Gout Migraines Osteoarthritis Parkinsons disease Social History Smoking and tobacco status: light tobacco smoker (OCCASIONAL CIGAR) Alcohol intake: former Physical Exam Const: COMMON NORMALS: no acute distress, patient oriented x3 and healthy appearing HENMT: COMMON NORMALS: normocephalic and atraumatic HEAD & SCALP: normocephalic and atraumatic Eye: COMMON NORMALS: Equal, round and reactive pupils present and EOMs intact bilaterally PUPIL: Yes Equal, round and reactive pupils present Neck/C-Spine: COMMON NORMALS: full ROM and supple Chest: COMMONS NORMALS: normal inspection of the chest and normal palpation of entire chest wall Resp: COMMON NORMALS: normal respiratory effort, No retractions, No use of accessory muscles and clear to auscultation bilaterally AUSCULTATION: clear to auscultation bilaterally Cardio: COMMON NORMALS: regular rate, regular rhythm and No murmurs present (Cardio) RATE: regular rate RHYTHM: regular rhythm GI: COMMON NORMALS: Normal to inspection, nondistended, normoactive bowel sounds present, Soft to palpation, non-tender and no masses PALPATION: Yes Soft to palpation Extremity: COMMON NORMALS: normal to inspection and full ROM Neuro: COMMON NORMALS: patient oriented x3, moves all extremities and no focal motor deficits Psych: COMMON NORMALS: mental status grossly normal, Normal thought process present and cooperative THOUGHT PROCESS: Normal thought process present Skin: COMMON NORMALS: no rashes or lesions noted and no wounds GENERAL SKIN EXAM: no rashes or lesions noted Course Vital Signs: Vital signs: Vital Signs Temperature 98.0 F 12/07/21 21:16 Pulse Rate 71 12/08/21 02:30 Respiratory Rate 22 H 12/08/21 02:30 Blood Pressure 137/96 12/08/21 02:30 Pulse Oximetry 97 12/08/21 02:30 MDM - Chest Pain Medical Decision Making Patient presents here with chest pains atypical in nature he is hypertensive as well his troponins here are negative EKGs are normal we will start him on metoprolol he is to follow-up with PCP and return if worsening he understands agrees to plan. Lab Data : 12/07/21 23:39 12/07/21 23:39 Radiology Impressions Chest X-Ray 12/07/21 21:10 IMPRESSION: No acute findings. Laboratory Results WBC 10.8 10^3/uL (4.0-10.0) H 12/07/21 23:39 RBC 5.87 10^6/uL (4.1-5.3) H 12/07/21 23:39 Hgb 17.0 g/dL (11.7-16.6) H 12/07/21 23:39 Hct 51.4 % (42.0-52.0) 12/07/21 23:39 MCV 87.6 fl (80-94) 12/07/21 23:39 MCH 29.0 pg (28.0-34.0) 12/07/21 23:39 MCHC 33.1 g/dL (30.0-36.0) 12/07/21 23:39 RDW 14.1 % (12.1-15.1) 12/07/21 23:39 Plt Count 258 10^3/cmm (130-400) 12/07/21 23:39 MPV 9.5 fL (7.4-10.4) 12/07/21 23:39 Neut % (Auto) 66.0 % 12/07/21 23:39 Lymph % (Auto) 23.1 % 12/07/21 23:39 [place] % (Auto) 6.9 % 12/07/21 23:39 Eos % (Auto) 2.9 % 12/07/21 23:39 Baso % (Auto) 0.7 % 12/07/21 23:39 Neut # (Auto) 7.13 10^3/uL (1.8-7.7) 12/07/21 23:39 Lymph # (Auto) 2.5 10^3/uL (0.8-4.8) 12/07/21 23:39 [place] # (Auto) 0.7 10^3/uL (0.2-0.9) 12/07/21 23:39 Eos # (Auto) 0.3 10^3/uL (0.0-0.8) 12/07/21 23:39 Baso # (Auto) 0.1 10^3/uL (0.0-0.1) 12/07/21 23:39 Nucleated RBC % (auto) 0 % 12/07/21 23:39 Nucleated RBCs # 0.0 /100WBC 12/07/21 23:39 Sodium 142 mmol/L (136-145) 12/07/21 23:39 Potassium 3.8 mmol/L (3.5-5.1) 12/07/21 23:39 Chloride 104 mmol/L (98-107) 12/07/21 23:39 Carbon Dioxide 25 mmol/L (22-29) 12/07/21 23:39 Anion Gap 16.8 (5-19) 12/07/21 23:39 BUN 21 mg/dL (6-20) H 12/07/21 23:39 Creatinine 0.8 mg/dL (0.7-1.2) 12/07/21 23:39 GFR Calculation 99.6 mL/min (90-130) 12/07/21 23:39 Glucose 80 mg/dL (65-115) 12/07/21 23:39 Calculated Osmolality 296 mOsm/kg (285-295) H 12/07/21 23:39 Calcium 9.5 mg/dL (8.5-10.5) 12/07/21 23:39 Total Bilirubin 0.2 mg/dL (0.15-1.2) 12/07/21 23:39 AST 14 U/L (0-40) 12/07/21 23:39 ALT 6 U/L (0-41) 12/07/21 23:39 Alkaline Phosphatase 99 IU/L (40-130) 12/07/21 23:39 Troponin T Baseline 6 ng/L (0-15) 12/07/21 23:39 Troponin T 120 Minute 6.51 ng/L (0-15) 12/08/21 01:57 Delta Troponin T 0.51 ABS# (0-10) 12/08/21 01:57 Total Protein 7.9 g/dL (6.6-8.7) 12/07/21 23:39 Albumin 4.4 g/dL (3.5-5.2) 12/07/21 23:39 Globulin 3.5 g/dL (1.3-4.6) 12/07/21 23:39 EKG Data EKG 1: I personally reviewed and interpreted this EKG as follows: EKG interpretation date: 12/07/21 EKG interpretation time: 21:13 Interpretation: nsr hr [address] or t wave abnormalities qrs 86 qtc 392 EKG 2: I personally reviewed and interpreted this EKG as follows: EKG interpretation date: 12/08/21 EKG interpretation time: 00:21 Interpretation: nsr hr [address] or t wave abnormalities qrs 85 qtc 398 Discharge Plan Discharge Patient Disposition: Home Clinical Impression: Hypertension Chest pain Qualifiers: Chest pain type: unspecified Qualified Code(s): R07.9 - Chest pain, unspecified Condition: Stable Prescriptions: New metoprolol tartrate 25 mg tablet 25 mg PO BID Qty: 60 0RF No Action carbidopa-levodopa 25-250 mg tablet 1 tab PO QID Qty: 120 2RF colchicine 0.6 mg tablet 0.6 mg PO DAILY PRN (Reason: gout) Qty: 90 2RF omeprazole 40 mg capsule,delayed release(DR/EC) 40 mg PO DAILY PRN (Reason: acid reflux) Qty: 30 1RF Discharge Orders: Discharge ED (Routine); Ordered 12/08/21 Ordered By: Heidi Abreu Discharge Diet: Advance as tolerated Discharge Activity: Resume usual activity Patient Instructions: Chest Pain (ED), Hypertension (ED) Coding Level of Care Code ED Chartered Wealth Manager for Chg Fwd Exam Comprehensive
[2021-12-07 23:47] LABS: Basophils # 0.1 10^3/uL (0.0-0.1); Basophils % 0.7 %; Eosinophils # 0.3 10^3/uL (0.0-0.8); Eosinophils % 2.9 %; Hematocrit 51.4 % (42.0-52.0); Lymphocytes # 2.5 10^3/uL (0.8-4.8); Lymphocytes % 23.1 %; Mean Corpuscular HGB Conc 33.1 g/dL (30.0-36.0); Mean Corpuscular Volume 87.6 fl (80-94); Mean Platelet Volume 9.5 fL (7.4-10.4); Monocytes # 0.7 10^3/uL (0.2-0.9); Monocytes % 6.9 %; Neutrophils # 7.13 10^3/uL (1.8-7.7); Nucleated Red Blood Cells % 0 %; Platelet Count 258 10^3/cmm (130-400); Red Blood Count 5.87 10^6/uL (4.1-5.3); Red Cell Distribution Width 14.1 % (12.1-15.1); White Blood Count 10.8 10^3/uL (4.0-10.0)
[2021-12-07] MEDS: ondansetron 2 mg/ML SDV 2 mL 4 MG IVP (23:52)
[2021-12-07] MEDS: labetalol 5 mg/mL SDV 20mL 10 MG IVP (23:52)
[2021-12-07] MEDS: morphine 4 mg/mL SDV 1 mL IVP (23:52)
[2021-12-08 00:10] LABS: Alanine Aminotransferase 6 U/L (0-41); Albumin Level 4.4 g/dL (3.5-5.2); Alkaline Phosphatase 99 IU/L (40-130); Anion Gap 16.8 (5-19); Aspartate Amino Transferase 14 U/L (0-40); Blood Urea Nitrogen 21 mg/dL (6-20); Calcium 9.5 mg/dL (8.5-10.5); Carbon Dioxide 25 mmol/L (22-29); Chloride 104 mmol/L (98-107); Creatinine Clr Calc Pharmacy 97.6178; Globulin 3.5 g/dL (1.3-4.6); Glomerular Filtration Rate 99.6 mL/min (90-130); Glucose 80 mg/dL (65-115); Osmolality Calculated 296 mOsm/kg (285-295); Potassium 3.8 mmol/L (3.5-5.1); Sodium 142 mmol/L (136-145); Total Bilirubin 0.2 mg/dL (0.15-1.2); Total Protein 7.9 g/dL (6.6-8.7)
[2021-12-08 00:11] LABS: Troponin(5th) Baseline 6 ng/L (0-15)
[2021-12-08 00:34] VITALS: BP 145/98; PULSE 72; RESP 16; O2SAT 90
[2021-12-08 01:00] VITALS: BP 131/87; PULSE 72; RESP 13; O2SAT 93
[2021-12-08 01:30] VITALS: BP 126/88; PULSE 73; RESP 22; O2SAT 95
[2021-12-08] MEDS: carbidopa-levodopa 25-250mg Tablet 1 EACH PO (01:50)
[2021-12-08 02:00] VITALS: BP 136/89; PULSE 77; RESP 15; O2SAT 95
[2021-12-08 02:24] LABS: Troponin 5 2HR 6.51 ng/L (0-15)
[2021-12-08 02:27] LABS: Troponin 5 2HR Delta 0.51 ABS# (0-10)
[2021-12-08 02:30] VITALS: BP 137/96; PULSE 71; RESP 22; O2SAT 97
== END 2021-12-08 02:43 | disposition home or self-care (01) ==
PROVIDERS: Emergency Provider Emergency Medicine
DX: R07.9 Chest pain, unspecified (principal); I10 Essential (primary) hypertension; G20 Parkinson's disease; F17.210 Nicotine dependence, cigarettes, uncomplicated
CPT/HCPCS: 71045; 80053; 84484; 85025; 93005; 96374; 96375; 99284; J2270; J2405; J3490

== ENCOUNTER 2021-12-30 23:17 | Emergency (ER) | payer MEDICARE, MEDICAID, SELFPAY ==
[2021-12-30 23:21] VITALS: BP 131/104; PULSE 69; RESP 20; TEMP 36.6; O2SAT 96; BMI 28.3
--- NOTE | 2021-12-30 23:32 | XRR_ITS ---
PROCEDURE INFORMATION: Exam: XR Right Knee Exam date and time: 12/30/2021 11:52 PM Age: 56 years old Clinical indication: Pain; Knee; Right; Additional info: Fall injury with knee pain TECHNIQUE: Imaging protocol: Radiologic exam of the Right knee. Views: 3 views. COMPARISON: No relevant prior studies available. FINDINGS: Bones/joints: Mild to moderate lateral knee compartment primary osteoarthritis. Mild patellofemoral compartment primary osteoarthritis. Soft tissues: Normal. XR/XR knee RT 3V* [id number] IMPRESSION: No acute findings.
--- NOTE | 2021-12-30 23:32 | XRR_ITS ---
PROCEDURE INFORMATION: Exam: XR Lumbosacral Spine Exam date and time: 12/30/2021 11:48 PM Age: 56 years old Clinical indication: Injury or trauma; Fall; Blunt trauma (contusions or hematomas); Additional info: Fall injury-lower back pain TECHNIQUE: Imaging protocol: Radiologic exam of the lumbosacral spine. Views: 2 or 3 views. COMPARISON: CR XR hip RT 2-3V wo/w pel* [id number] 12/30/2021 11:40 PM FINDINGS: Bones/joints: Right total hip replacement. Postoperative changes over the lumbar spine with metallic fixation and metallic artifact. Soft tissues: Unremarkable. XR/XR lumbar spine 2-3V* [id number] IMPRESSION: 1. No acute findings. 2. If pain persists, CT may be helpful to rule out occult pathology if clinically indicated.
--- NOTE | 2021-12-30 23:32 | XRR_ITS ---
PROCEDURE INFORMATION: Exam: XR Right Hip Exam date and time: 12/30/2021 11:40 PM Age: 56 years old Clinical indication: Injury or trauma; Fall; Blunt trauma (contusions or hematomas); Right; Hip; Additional info: Fall injury with hip pain TECHNIQUE: Imaging protocol: Radiologic exam of the Right hip. Views: 1 view hip with pelvis when performed. COMPARISON: No relevant prior studies available. FINDINGS: Bones/joints: Right total hip replacement. Soft tissues: Unremarkable. Other findings: Postoperative changes over the lumbar spine with metallic fixation and metallic artifact. XR/XR hip RT 2-3V wo/w pel* [id number] IMPRESSION: 1. No acute findings. 2. If pain persists, CT may be helpful to rule out occult pathology if clinically indicated.
--- NOTE | 2021-12-30 23:33 | ED_ITS ---
HPI - Extremity Problem General: Chief complaint: Extremity Injury, Lower Stated complaint: FALL/HIP PAIN Time Seen by Provider: 12/30/21 23:20 History of Present Illness: Patient is a 56-year-old male who comes to the ED with fall injury. Patient had an accidental fall in his house and around 3 PM today. Patient says he was walking in his house and tripped over the fan cord that was on the floor. He fell down and landed on right hip. Denies any head trauma, loss of consciousness. Patient is not on any blood thinners. Neighbor was able to help him up after fall. His pain was mild at first and as the day went on he started having worse and worse pain in his lower back, right hip and right knee. Pain worsens with weightbearing. He rates the pain currently a 7 out of 10. Due to increased pain he called EMS and they brought him here to the ED for evaluation. Patient says he took a Tylenol and around 5 PM tonight. Associated symptoms: Deny chest pain, fever(s) or rash Review of Systems Const: Denies: fever(s), chills or fatigue Eyes: Denies: change in vision or eye discomfort ENMT: Denies: throat pain, odynophagia, nasal discharge or nasal congestion Card: Denies: chest pain, palpitations, edema, swelling of feet/ankles, dyspnea on exertion or orthopnea Resp: Denies: dyspnea, productive cough or non-productive cough GI: Denies: abdominal pain, nausea, vomiting, diarrhea, constipation or hematochezia : Denies: flank pain, difficulty urinating, dysuria or hematuria Musc: Reports: back pain (Lower back) and extremity pain (Right hip, right knee); Denies: neck pain or extremity swelling Skin/Breast: Denies: rash or new lesions Neuro: Denies: headache(s), numbness in extremities or weakness in extremities PFS ED PFSH: Medical History Anxiety and depression DDD (degenerative disc disease) GERD (gastroesophageal reflux disease) Gout Migraines Osteoarthritis Parkinsons disease Social History Smoking and tobacco status: light tobacco smoker (OCCASIONAL CIGAR) Alcohol intake: former Physical Exam Const: COMMON NORMALS: no acute distress, patient oriented x3 and alert GENERAL APPEARANCE: cooperative HENMT: COMMON NORMALS: normocephalic HEAD & SCALP: normocephalic MOUTH: Normal oral and palatal mucosa present THROAT: posterior oropharynx normal and uvula midline Neck/C-Spine: COMMON NORMALS: supple GENERAL: Yes normal visual inspection Resp: COMMON NORMALS: normal respiratory effort, No retractions, No use of accessory muscles and clear to auscultation bilaterally AUSCULTATION: clear to auscultation bilaterally Cardio: COMMON NORMALS: regular rate, regular rhythm, S1 normal heart sound present, S2 normal heart sound present, No gallops present (Cardio), No clicks present (Cardio), No murmurs present (Cardio) and Peripheral pulses 2+ throughout RATE: regular rate RHYTHM: regular rhythm HEART SOUNDS: S1 normal heart sound present and S2 normal heart sound present PERIPHERAL PULSES: Peripheral pulses 2+ throughout GI: COMMON NORMALS: Normal to inspection, nondistended, normoactive bowel sounds present, Soft to palpation, non-tender and no masses PALPATION: Yes Soft to palpation : COMMON NORMALS: Yes no CVA tenderness BLADDER/KIDNEY EXAM: Yes no CVA tenderness Back/Pelvis: COMMON NORMALS: no CVA tenderness Extremity: COMMON NORMALS: normal to inspection Neuro: COMMON NORMALS: patient oriented x3 and moves all extremities SENSORIUM/ORIENTATION: Yes alert Skin: GENERAL SKIN EXAM: dry skin Course Vital Signs: Vital signs: Vital Signs Temperature 98 F 12/30/21 23:21 Pulse Rate 71 12/31/21 01:31 Respiratory Rate 16 12/31/21 01:31 Blood Pressure 124/86 12/31/21 01:31 Pulse Oximetry 95 12/31/21 01:31 MDM - Extremity (Nontraumatic) Medical Decision Making Patient is a 56-year-old male comes to the ED after fall. Patient tripped over an extension cord and high loss and fell down on right hip. He is complaining of lower back pain, right hip pain and right knee pain. Denies any head trauma or loss of consciousness. Patient is not on a blood thinner. Vitals are stable. Exam is benign. X-ray of right hip, right knee and lumbar spine showed no acute fractures or findings. Patient diagnosed with fall with injury and discharged home with some crutches. Told to follow-up with his PCP in the next week for reevaluation. Return to ED precautions given. Patient understood and agreed with plan. Lab Data Radiology Impressions Hip/Pelvis X-Ray 12/30/21 23:32 IMPRESSION: 1. No acute findings. 2. If pain persists, CT may be helpful to rule out occult pathology if clinically indicated. Knee X-Ray 12/30/21 23:32 IMPRESSION: No acute findings. Lumbar Spine X-Ray 12/30/21 23:32 IMPRESSION: 1. No acute findings. 2. If pain persists, CT may be helpful to rule out occult pathology if clinically indicated. Discharge Plan Discharge Patient Disposition: Home Clinical Impression: Fall with injury Qualifiers: Encounter type: initial encounter Qualified Code(s): W19.XXXA - Unspecified fall, initial encounter Condition: Stable Prescriptions: No Action carbidopa-levodopa 25-250 mg tablet 1 tab PO QID Qty: 120 2RF colchicine 0.6 mg tablet 0.6 mg PO DAILY PRN (Reason: gout) Qty: 90 2RF omeprazole 40 mg capsule,delayed release(DR/EC) 40 mg PO DAILY PRN (Reason: acid reflux) Qty: 30 1RF metoprolol tartrate 25 mg tablet 25 mg PO BID Qty: 60 3RF Discharge Orders: Discharge ED (Routine); Ordered 12/31/21 Ordered By: Jude Sue Discharge Diet: Regular Discharge Activity: Use walker/crutches as instructed Patient Instructions: Fall Prevention (ED) Activity Restrictions/Additional Instructions: Follow-up with medical provider as directed in the next 5 to 7 days for reevaluation. Use crutches and limit weightbearing on right leg to rest and allow for healing., Rest, ice and elevate right leg. Continue taking all home meds as previously prescribed. Take [id number] Tylenol as needed for pain. Return to the ER or your medical provider if condition worsens. Please read and understand discharge instructions. Thank you for choosing [facility] for your healthcare needs today. Please realize this is an emergency room and that we are providing you with a medical screening exam and this may not be complete and all inclusive of all the testing and or work up that you may need to determine your ailment or severity of your illness. It is very important that you follow up as instructed or that you return to the Emergency Department should you have concerns or if your condition changes or worsens in any way. Coding Level of Care Code ED Residence Supervisor for Chg Fwd Exam Comprehensive
[2021-12-31 00:10] VITALS: RESP 20
[2021-12-31] MEDS: morphine 4 mg/mL SDV 1 mL IM ×2 (00:10→01:29)
[2021-12-31 01:29] VITALS: RESP 16
[2021-12-31 01:31] VITALS: BP 124/86; PULSE 71; RESP 16; O2SAT 95
--- NOTE | 2021-12-31 01:31 | PC.NURSE ---
Paulino wrap applied to right knee. crutches adjusted and crutch training performed with patient feed back.
== END 2021-12-31 01:33 | disposition home or self-care (01) ==
PROVIDERS: Emergency Provider Physician Assistant
DX: M25.551 Pain in right hip (principal); F17.210 Nicotine dependence, cigarettes, uncomplicated; W18.09XA Striking against other object with subsequent fall, initial encounter
CPT/HCPCS: 72100; 73502; 73562; 96372; 99284; E0114; J2270

== ENCOUNTER → 2022-01-08 11:59 | Outpatient (BNVA) | payer MEDICARE, MEDICAID, SELFPAY | PROVIDERS: PCP Family Medicine Adult Medicine; Visit Provider Internal Medicine | DX: R07.9 Chest pain, unspecified (principal) | CPT/HCPCS: 99203; 99204 ==

== ENCOUNTER 2022-01-31 17:04 | Emergency (ER) | payer MEDICARE, MEDICAID, SELFPAY ==
[2022-01-31 17:15] VITALS: BP 129/82; PULSE 90; RESP 16; TEMP 36.8; O2SAT 97; BMI 28.3
--- NOTE | 2022-01-31 17:15 | XRR_ITS ---
PROCEDURE INFORMATION: Exam: XR Chest Exam date and time: 01/31/2022 5:21 PM Age: 56 years old Clinical indication: Angina; Additional info: Chest pain TECHNIQUE: Imaging protocol: Radiologic exam of the chest. Views: 1 view. COMPARISON: CR XR chest 1V portable [id number] 12/07/2021 10:05 PM FINDINGS: Lungs: Low lung volumes seen. . No consolidation. Pleural spaces: Unremarkable. No pleural effusion. No pneumothorax. Heart/Mediastinum: Unremarkable. No cardiomegaly. Bones/joints: Postsurgical hardware is seen in the cervical spine. Other findings: Similar findings seen comparing to prior examination XR/XR chest 1V portable [id number] IMPRESSION: 1. No acute findings. 2. Surgical hardware is seen in the cervical spine
--- NOTE | 2022-01-31 17:15 | ECG_ITS ---
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 Measurements Intervals [place] Rate: 79 P: 49 PA: 173 QRS: 3 QRSD: 90 T: 43 QT: 357 QTc: 411 Interpretive Statements SINUS RHYTHM Compared to ECG 12/08/2021 00:21:15 No significant changes Electronically Signed On 01-31-2022 17:34:55 CDT by Rashad El M.D. [email or web address] [email or web address] [email or web address]/[id number] f
--- NOTE | 2022-01-31 17:27 | ED_ITS ---
HPI - Chest Pain General: Chief Complaint: Chest Pain Stated Complaint: CHEST PAIN Time Seen by Provider: 01/31/22 17:15 Source: patient and EMS Mode of arrival: EMS Limitations: no limitations History of Present Illness: 56-year-old male states that he was working today cleaning his house started having some chest pain he states lasted roughly 30 minutes he states relieved with nitro patient's been given aspirin in route by EMS he states he has been pain-free over the last 30 minutes he denies any shortness of breath denies any diaphoresis he states that he had seen Dr. Beard and is set up for a stress test. He is unsure what it is. Associated symptoms: Deny abdominal pain, dyspnea, fever(s), nausea or vomiting Review of Systems Const: Denies: fever(s), chills, body aches or change in appetite Eyes: Denies: blurry vision or eye discomfort ENMT: Denies: throat pain or dental pain Card: Reports: chest pain Resp: Denies: dyspnea GI: Denies: abdominal pain, nausea, vomiting or diarrhea : Denies: dysuria Musc: Denies: neck pain or back pain Skin/Breast: Denies: rash Neuro: Denies: headache(s) Psych: Denies: depression [place]/Lymph: Denies: easy bruising All/Imm: Denies: urticaria PFSH ED PFSH: Medical History Anxiety and depression DDD (degenerative disc disease) GERD (gastroesophageal reflux disease) Gout Migraines Osteoarthritis Parkinsons disease Family History Father Stroke Heart attack Brother Hypertension Sister Heart attack Social History Smoking and tobacco status: current every day smoker (Chewing) smokeless tobacco Smokeless tobacco user: chewing tobacco Alcohol intake: former Physical Exam Const: COMMON NORMALS: no acute distress, patient oriented x3 and healthy appearing HENMT: COMMON NORMALS: normocephalic and atraumatic HEAD & SCALP: nor mocephalic and atraumatic Eye: COMMON NORMALS: Equal, round and reactive pupils present and EOMs intact bilaterally PUPIL: Yes Equal, round and reactive pupils present Neck/C-Spine: COMMON NORMALS: full ROM and supple Chest: COMMONS NORMALS: normal inspection of the chest and normal palpation of entire chest wall Resp: COMMON NORMALS: normal respiratory effort, No retractions, No use of accessory muscles and clear to auscultation bilaterally AUSCULTATION: clear to auscultation bilaterally Cardio: COMMON NORMALS: regular rate, regular rhythm and No murmurs present (Cardio) RATE: regular rate RHYTHM: regular rhythm GI: COMMON NORMALS: Normal to inspection, nondistended, normoactive bowel sounds present, Soft to palpation, non-tender and no masses PALPATION: Yes Soft to palpation Extremity: COMMON NORMALS: normal to inspection and full ROM Neuro: COMMON NORMALS: patient oriented x3, moves all extremities and no focal motor deficits Psych: COMMON NORMALS: mental status grossly normal, Normal thought process present and cooperative THOUGHT PROCESS: Normal thought process present Skin: COMMON NORMALS: no rashes or lesions noted and no wounds GENERAL SKIN EXAM: no rashes or lesions noted Course Vital Signs: Vital signs: Vital Signs Temperature 98.3 F 01/31/22 17:15 Pulse Rate 90 01/31/22 17:15 Respiratory Rate 16 01/31/22 17:15 Blood Pressure 129/82 01/31/22 17:15 Pulse Oximetry 97 01/31/22 17:15 Oxygen Delivery Me thod 01/31/22 17:15 MDM - Chest Pain Medical Decision Making Patient presents here with chest pains atypical in nature is initial repeat troponins are negative he is stable for discharge 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 Lab Data : 01/31/22 18:10 01/31/22 18:10 Radiology Impressions Chest X-Ray 01/31/22 17:15 IMPRESSION: 1. No acute findings. 2. Surgical hardware is seen in the cervical spine Laboratory Results WBC 8.5 10^3/uL (4.0-10.0) 01/31/22 18:10 RBC 5.53 10^6/uL (4.1-5.3) H 01/31/22 18:10 Hgb 16.2 g/dL (11.7-16.6) 01/31/22 18:10 Hct 49.7 % (42.0-52.0) 01/31/22 18:10 MCV 89.9 fl (80-94) 01/31/22 18:10 MCH 29.3 pg (28.0-34.0) 01/31/22 18:10 MCHC 32.6 g/dL (30.0-36.0) 01/31/22 18:10 RDW 14.1 % (12.1-15.1) 01/31/22 18:10 Plt Count 263 10^3/cmm (130-400) 01/31/22 18:10 MPV 9.4 fL (7.4-10.4) 01/31/22 18:10 Neut % (Auto) 68.8 % 01/31/22 18:10 Lymph % (Auto) 20.9 % 01/31/22 18:10 [place] % (Auto) 6.7 % 01/31/22 18:10 Eos % (Auto) 2.6 % 01/31/22 18:10 Baso % (Auto) 0.6 % 01/31/22 18:10 Neut # (Auto) 5.84 10^3/uL (1.8-7.7) 01/31/22 18:10 Lymph # (Auto) 1.8 10^3/uL (0.8-4.8) 01/31/22 18:10 [place] # (Auto) 0.6 10^3/uL (0.2-0.9) 01/31/22 18:10 Eos # (Auto) 0.2 10^3/uL (0.0-0.8) 01/31/22 18:10 Baso # (Auto) 0.1 10^3/uL (0.0-0.1) 01/31/22 18:10 Nucleated RBC % (auto) 0 % 01/31/22 18:10 Nucleated RBCs # 0.0 /100WBC 01/31/22 18:10 Sodium 142 mmol/L (136-145) 01/31/22 18:10 Potassium 4.0 mmol/L (3.5-5.1) 01/31/22 18:10 Chloride 106 mmol/L (98-107) 01/31/22 18:10 Carbon Dioxide 25 mmol/L (22-29) 01/31/22 18:10 Anion Gap 15.0 (5-19) 01/31/22 18:10 BUN 19 mg/dL (6-20) 01/31/22 18:10 Creatinine 0.7 mg/dL (0.7-1.2) 01/31/22 18:10 GFR Calculation 116.2 mL/min (90-130) 01/31/22 18:10 Glucose 91 mg/dL (65-115) 01/31/22 18:10 Calculated Osmolality 296 mOsm/kg (285-295) H 01/31/22 18:10 Calcium 9.8 mg/dL (8.5-10.5) 01/31/22 18:10 Troponin T Baseline 7 ng/L (0-15) 01/31/22 18:10 Troponin T 120 Minute 6.54 ng/L (0-15) 01/31/22 19:55 Delta Troponin T -0.46 ABS# (0-10) L 01/31/22 19:55 EKG Data EKG 1: I personally reviewed and interpreted this EKG as follows: EKG interpretation date: 01/31/22 EKG interpretation time: 17:17 Interpretation: nsr hr [address] or t wave abnormalities qrs 90 qtc 392 EKG 2: I personally reviewed and interpreted this EKG as follows: EKG interpretation date: 01/31/22 EKG interpretation time: 19:22 Interpretation: nsr hr [address] or t wave abnormalities qrs 83 qtc 398 Discharge Plan Discharge Patient Disposition: Home Clinical Impression: Chest pain Condition: Stable Prescriptions: No Action colchicine 0.6 mg tablet 0.6 mg PO DAILY PRN (Reason: gout) Qty: 90 2RF omeprazole 40 mg capsule,delayed release(DR/EC) 40 mg PO DAILY PRN (Reason: acid reflux) Qty: 30 1RF aspirin [Adult Low Dose Aspirin] 81 mg tablet,delayed release (DR/EC) 81 mg PO DAILY Qty: 90 3RF metoprolol tartrate 25 mg tablet 25 mg PO BID Qty: 60 3RF carbidopa-levodopa 25-250 mg tablet 1.5 tab PO QID Discharge Orders: Discharge ED (Routine); Ordered 01/31/22 Ordered By: Heidi Abreu Referrals: Wali Moon MD [Primary Care Provider] - 1-3 days Discharge Diet: Advance as tolerated Discharge Activity: Resume usual activity Patient Instructions: Chest Pain (ED) Coding Level of Care Code ED Level Vial Inspector for Chg Fwd Exam Comprehensive
--- NOTE | 2022-01-31 17:35 | PC.NURSE ---
PT PLACED ON CONTINUOUS NIBP, SPO2, AND CM
[2022-01-31 18:13] LABS: Basophils # 0.1 10^3/uL (0.0-0.1); Basophils % 0.6 %; Eosinophils # 0.2 10^3/uL (0.0-0.8); Eosinophils % 2.6 %; Hematocrit 49.7 % (42.0-52.0); Hemoglobin 16.2 g/dL (11.7-16.6); Lymphocytes # 1.8 10^3/uL (0.8-4.8); Lymphocytes % 20.9 %; Mean Corpuscular HGB Conc 32.6 g/dL (30.0-36.0); Mean Corpuscular Hemoglobin 29.3 pg (28.0-34.0); Mean Corpuscular Volume 89.9 fl (80-94); Mean Platelet Volume 9.4 fL (7.4-10.4); Monocytes # 0.6 10^3/uL (0.2-0.9); Monocytes % 6.7 %; Neutrophils # 5.84 10^3/uL (1.8-7.7); Neutrophils % 68.8 %; Nucleated Red Blood Cells % 0 %; Platelet Count 263 10^3/cmm (130-400); Red Blood Count 5.53 10^6/uL (4.1-5.3); Red Cell Distribution Width 14.1 % (12.1-15.1); White Blood Count 8.5 10^3/uL (4.0-10.0)
[2022-01-31 18:38] LABS: Troponin(5th) Baseline 7 ng/L (0-15)
[2022-01-31 18:40] LABS: Blood Urea Nitrogen 19 mg/dL (6-20); Calcium 9.8 mg/dL (8.5-10.5); Carbon Dioxide 25 mmol/L (22-29); Chloride 106 mmol/L (98-107); Glomerular Filtration Rate 116.2 mL/min (90-130); Glucose 91 mg/dL (65-115); Osmolality Calculated 296 mOsm/kg (285-295); Sodium 142 mmol/L (136-145)
[2022-01-31] MEDS: methocarbamol 750 mg Tablet PO (20:08)
[2022-01-31 20:44] LABS: Troponin 5 2HR 6.54 ng/L (0-15)
[2022-01-31 20:56] LABS: Troponin 5 2HR Delta -0.46 ABS# (0-10)
[2022-01-31 21:12] VITALS: BP 120/83; PULSE 78; RESP 16; O2SAT 93
== END 2022-01-31 21:13 | disposition home or self-care (01) ==
PROVIDERS: Family Medicine; Emergency Provider Emergency Medicine; PCP Family Medicine Adult Medicine
DX: R07.9 Chest pain, unspecified (principal); Z79.82 Long term (current) use of aspirin; G20 Parkinson's disease; F17.220 Nicotine dependence, chewing tobacco, uncomplicated
CPT/HCPCS: 71045; 80048; 84484; 85025; 93005; 99285

== ENCOUNTER 2022-02-06 14:16 | Outpatient (CLI) | payer MEDICARE, MEDICAID, SELFPAY ==
--- NOTE | 2022-02-06 14:27 | XR_ITS ---
WS: [id number] Right shoulder, 3 views, 02/06/2022 Clinical Data: Possible dislocation Comparison: None. Findings: No fractures or dislocations are seen. The AC joint shows osteoarthritis. The adjacent right clavicle , right scapula and ribs are normal. The soft tissues are unremarkable. The patient has had an anterior and a posterior cervical disc fusion. XR/XR shoulder RT min 2V* [id number] Impression: Negative right shoulder.
== END 2022-02-06 14:17 | disposition home or self-care (01) ==
LOC: RAD 14:19
PROVIDERS: PCP Family Medicine Adult Medicine; Visit Provider Family Medicine Adult Medicine
DX: M25.511 Pain in right shoulder (principal); G20 Parkinson's disease; G89.29 Other chronic pain
CPT/HCPCS: 73030

== ENCOUNTER → 2022-02-14 14:13 | Outpatient (BNVA) | payer MEDICARE, MEDICAID, SELFPAY | PROVIDERS: PCP Family Medicine Adult Medicine; Visit Provider Podiatrist Foot & Ankle Surgery | DX: M77.41 Metatarsalgia, right foot (principal); M77.42 Metatarsalgia, left foot; Q66.221 Congenital metatarsus adductus, right foot; Q66.222 Congenital metatarsus adductus, left foot; M10.9 Gout, unspecified | CPT/HCPCS: 73630; 99204 ==

== ENCOUNTER → 2022-03-13 14:26 | Outpatient (BNVA) | payer MEDICARE, MEDICAID, SELFPAY | PROVIDERS: PCP Family Medicine Adult Medicine; Visit Provider Internal Medicine | DX: R07.9 Chest pain, unspecified (principal) | CPT/HCPCS: 93005; 99213; 99214 ==

== ENCOUNTER 2022-03-14 00:05 | Emergency (ER) | payer MEDICARE, MEDICAID, SELFPAY ==
[2022-03-14 00:06] VITALS: BP 150/98; PULSE 89; RESP 17; TEMP 36.6; O2SAT 95; BMI 29.9
--- NOTE | 2022-03-14 00:11 | ECG_ITS ---
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 Measurements Intervals [place] Rate: 85 P: 72 MA: 166 QRS: 46 QRSD: 106 T: 72 QT: 356 QTc: 423 Interpretive Statements SINUS RHYTHM Compared to ECG 01/31/2022 17:17:23 No significant changes Electronically Signed On 03-14-2022 14:12:58 CDT by Rashad El M.D. [id number]
[2022-03-14 00:15] VITALS: PULSE 91; RESP 19; O2SAT 95
--- NOTE | 2022-03-14 00:15 | XRR_ITS ---
PROCEDURE INFORMATION: Exam: XR Chest Exam date and time: 03/14/2022 12:22 AM Age: 56 years old Clinical indication: Chest pressure; Prior surgery; Surgery type: Cervical fusion. Patient HX: C/O chest pain; Additional info: Cp TECHNIQUE: Imaging protocol: Radiologic exam of the chest. Views: 1 view. COMPARISON: CR (CHEST, ) 01/31/2022 5:21 PM FINDINGS: Lungs: Unremarkable. No consolidation. Pleural spaces: Unremarkable. No pleural effusion. No pneumothorax. Heart/Mediastinum: Unremarkable. No cardiomegaly. Bones/joints: Postoperative findings of anterior and posterior fixation in the lower cervical spine are again noted.. XR/XR chest 1V portable [id number] IMPRESSION: No acute radiographic findings in the chest.
--- NOTE | 2022-03-14 00:21 | ED_ITS ---
HPI - Chest Pain General: Chief Complaint: Chest Pain Stated Complaint: CP Time Seen by Provider: 03/14/22 00:08 Source: patient and EMS Mode of arrival: EMS Limitations: no limitations History of Present Illness: 56-year-old male who states that he has been having chest pain over the last 2 to 3 days. He was seen here a while back for chest pain as well as follow-up with his employment assistant today he is scheduled for stress test he states that he is continue to have pain and sharp pain in the center of his chest. He denies any shortness of breath he is also had a slight headache. His pain currently is a 5 out of 10. Associated symptoms: Deny abdominal pain, dyspnea, fever(s), nausea or vomiting Review of Systems Const: Denies: fever(s), chills, body aches or change in appetite Eyes: Denies: blurry vision or eye discomfort ENMT: Denies: throat pain or dental pain Card: Denies: chest pain Resp: Denies: dyspnea GI: Denies: abdominal pain, nausea, vomiting or diarrhea : Denies: dysuria Musc: Denies: neck pain or back pain Skin/Breast: Denies: rash Neuro: Denies: headache(s) Psych: Denies: depression [place]/Lymph: Denies: easy bruising All/Imm: Denies: urticaria PFSH ED PFSH: Medical History Anxiety and depression Chronic right shoulder pain DDD (degenerative disc disease) Deformity of both feet GERD (gastroesophageal reflux disease) Gout Hearing loss Migraines Osteoarthritis Parkinsons disease Surgical History History of back surgery x6 different surgeries on the spine Family History Father Stroke Heart attack Brother Hypertension Sister Heart attack Social History Smoking and tobacco status: current every day smoker (chewing) smokeless tobacco Smokeless tobacco user: chewing tobacco Alcohol intake: former Caregiver/support person: No Lives independently: Yes Household members: none Marital status: Single Highest education level completed: Some College, No Degree service: No Current occupational status: retired and disabled History of recent travel: Yes Current gender identity: Male Physical Exam Const: COMMON NORMALS: no acute distress, patient oriented x3 and healthy appearing HENMT: COMMON NORMALS: normocephalic and atraumatic HEAD & SCALP: normocephalic and atraumatic Eye: COMMON NORMALS: Equal, round and reactive pupils present and EOMs intact bilaterally PUPIL: Yes Equal, round and reactive pupils present Neck/C-Spine: COMMON NORMALS: full ROM and supple Chest: COMMONS NORMALS: normal inspection of the chest and normal palpation of entire chest wall Resp: COMMON NORMALS: normal respiratory effort, No retractions, No use of accessory muscles and clear to auscultation bilaterally AUSCULTATION: clear to auscultation bilaterally Cardio: COMMON NORMALS: regular rate, regular rhythm and No murmurs present (Cardio) RATE: regular rate RHYTHM: regular rhythm GI: COMMON NORMALS: Normal to inspection, nondistended, normoactive bowel sounds present, Soft to palpation, non-tender and no masses PALPATION: Yes Soft to palpation Extremity: COMMON NORMALS: normal to inspection and full ROM Neuro: COMMON NORMALS: patient oriented x3, moves all extremities and no focal motor deficits Psych: COMMON NORMALS: mental status grossly normal, Normal thought process present and cooperative THOUGHT PROCESS: Normal thought process present Skin: COMMON NORMALS: no rashes or lesions noted and no wounds GENERAL SKIN EXAM: no rashes or lesions noted Course Vital Signs: Vital signs: Vital Signs Temperature 97.9 F 03/14/22 00:06 Pulse Rate 91 03/14/22 00:15 Respiratory Rate 19 H 03/14/22 00:15 Blood Pressure 150/98 03/14/22 00:06 Pulse Oximetry 95 03/14/22 00:15 Oxygen Delivery Me thod 03/14/22 00:15 MDM - Chest Pain Medical Decision Making DivorcedPatient presents for chest pains atypical in nature his troponins here are normal he is stable for discharge he is to follow-up with his employment assistant and he understands and agrees to the plan. Lab Data : 03/14/22 00:24 03/14/22 00:24 Radiology Impressions Chest X-Ray 03/14/22 00:15 IMPRESSION: No acute radiographic findings in the chest. Laboratory Results WBC 7.8 10^3/uL (4.0-10.0) 03/14/22 00:24 RBC 5.60 10^6/uL (4.1-5.3) H 03/14/22 00:24 Hgb 16.2 g/dL (11.7-16.6) 03/14/22 00:24 Hct 49.3 % (42.0-52.0) 03/14/22 00:24 MCV 88.0 fl (80-94) 03/14/22 00:24 MCH 28.9 pg (28.0-34.0) 03/14/22 00:24 MCHC 32.9 g/dL (30.0-36.0) 03/14/22 00:24 RDW 13.6 % (12.1-15.1) 03/14/22 00:24 Plt Count 239 10^3/cmm (130-400) 03/14/22 00:24 MPV 9.9 fL (7.4-10.4) 03/14/22 00:24 Neut % (Auto) 54.9 % 03/14/22 00:24 Lymph % (Auto) 31.7 % 03/14/22 00:24 [place] % (Auto) 8.6 % 03/14/22 00:24 Eos % (Auto) 3.7 % 03/14/22 00:24 Baso % (Auto) 0.8 % 03/14/22 00:24 Neut # (Auto) 4.31 10^3/uL (1.8-7.7) 03/14/22 00:24 Lymph # (Auto) 2.5 10^3/uL (0.8-4.8) 03/14/22 00:24 [place] # (Auto) 0.7 10^3/uL (0.2-0.9) 03/14/22 00:24 Eos # (Auto) 0.3 10^3/uL (0.0-0.8) 03/14/22 00:24 Baso # (Auto) 0.1 10^3/uL (0.0-0.1) 03/14/22 00:24 Nucleated RBC % (auto) 0 % 03/14/22 00:24 Nucleated RBCs # 0.0 /100WBC 03/14/22 00:24 PT 12.70 SECONDS (12.1-14.9) 03/14/22 00:24 INR 0.92 (0.8-1.2) 03/14/22 00:24 Sodium 141 mmol/L (136-145) 03/14/22 00:24 Potassium 3.9 mmol/L (3.5-5.1) 03/14/22 00:24 Chloride 100 mmol/L (98-107) 03/14/22 00:24 Carbon Dioxide 28 mmol/L (22-29) 03/14/22 00:24 Anion Gap 16.9 (5-19) 03/14/22 00:24 BUN 25 mg/dL (6-20) H 03/14/22 00:24 Creatinine 1.1 mg/dL (0.7-1.2) 03/14/22 00:24 GFR Calculation 69.0 mL/min (90-130) L 03/14/22 00:24 Glucose 86 mg/dL (65-115) 03/14/22 00:24 Calculated Osmolality 296 mOsm/kg (285-295) H 03/14/22 00:24 Calcium 10.0 mg/dL (8.5-10.5) 03/14/22 00:24 Total Bilirubin 0.2 mg/dL (0.15-1.2) 03/14/22 00:24 AST 18 U/L (0-40) 03/14/22 00:24 ALT < 5 U/L (0-41) 03/14/22 00:24 Alkaline Phosphatase 96 U/L (40-130) 03/14/22 00:24 Troponin T Baseline 7 ng/L (0-15) 03/14/22 00:24 Troponin T 120 Minute 6.22 ng/L (0-15) 03/14/22 02:36 Total Protein 7.1 g/dL (6.6-8.7) 03/14/22 00:24 Albumin 4.3 g/dL (3.5-5.2) 03/14/22 00:24 Globulin 2.8 g/dL (1.3-4.6) 03/14/22 00:24 Lipase 62 U/L (13-60) H 03/14/22 00:24 EKG Data EKG 1: I personally reviewed and interpreted this EKG as follows: EKG interpretation date: 03/14/22 EKG interpretation time: 00:11 Interpretation: nsr hr [address] or t wave abnormalities qrs 106 qtc 398 EKG 2: I personally reviewed and interpreted this EKG as follows: EKG interpretation date: 03/14/22 EKG interpretation time: 01:59 Interpretation: nsr hr [address] or t wave abnormalities qrs 94 qtc 419 Discharge Plan Discharge Patient Disposition: Home Clinical Impression: Chest pain Condition: Stable Prescriptions: No Action colchicine 0.6 mg tablet 0.6 mg PO DAILY PRN (Reason: gout) Qty: 90 2RF aspirin [Adult Low Dose Aspirin] 81 mg tablet,delayed release (DR/EC) 81 mg PO DAILY Qty: 90 3RF metoprolol tartrate 25 mg tablet 37.5 mg PO BID Qty: 270 3RF carbidopa-levodopa 25-250 mg tablet See Rx Instructions .ROUTE .COMPLEX Qty: 120 5RF Dose Instruction: take ONE tablet BY MOUTH FOUR TIMES DAILY Rx Instructions: take ONE tablet BY MOUTH FOUR TIMES DAILY indomethacin 75 mg capsule, extended release 75 mg PO BID PRN (Reason: pain) Qty: 14 2RF omeprazole 40 mg capsule,delayed release(DR/EC) See Rx Instructions .ROUTE .COMPLEX Qty: 30 11RF Dose Instruction: TAKE ONE CAPSULE BY MOUTH EVERY DAY NEEDED FOR ACID REFLUX Rx Instructions: TAKE ONE CAPSULE BY MOUTH EVERY DAY NEEDED FOR ACID REFLUX Discharge Orders: Discharge ED (Routine); Ordered 03/14/22 Ordered By: Heidi Abreu Referrals: Wali Moon MD [Primary Care Provider] - Rashad El M.D [Physician] - 1-3 days Discharge Diet: Advance as tolerated Discharge Activity: Resume usual activity Patient Instructions: Chest Pain (ED) Coding Level of Care Code ED Factory Clerk for Chg Fwd Exam Comprehensive
[2022-03-14 00:33] LABS: Basophils # 0.1 10^3/uL (0.0-0.1); Basophils % 0.8 %; Eosinophils # 0.3 10^3/uL (0.0-0.8); Eosinophils % 3.7 %; Hematocrit 49.3 % (42.0-52.0); Hemoglobin 16.2 g/dL (11.7-16.6); Lymphocytes # 2.5 10^3/uL (0.8-4.8); Lymphocytes % 31.7 %; Mean Corpuscular HGB Conc 32.9 g/dL (30.0-36.0); Mean Corpuscular Hemoglobin 28.9 pg (28.0-34.0); Mean Platelet Volume 9.9 fL (7.4-10.4); Monocytes # 0.7 10^3/uL (0.2-0.9); Monocytes % 8.6 %; Neutrophils # 4.31 10^3/uL (1.8-7.7); Neutrophils % 54.9 %; Nucleated Red Blood Cells % 0 %; Platelet Count 239 10^3/cmm (130-400); Red Cell Distribution Width 13.6 % (12.1-15.1); White Blood Count 7.8 10^3/uL (4.0-10.0)
[2022-03-14 00:44] LABS: INR 0.92 (0.8-1.2)
[2022-03-14 00:52] LABS: Alanine Aminotransferase < 5 U/L (0-41); Albumin Level 4.3 g/dL (3.5-5.2); Alkaline Phosphatase 96 U/L (40-130); Anion Gap 16.9 (5-19); Aspartate Amino Transferase 18 U/L (0-40); Blood Urea Nitrogen 25 mg/dL (6-20); Carbon Dioxide 28 mmol/L (22-29); Chloride 100 mmol/L (98-107); Globulin 2.8 g/dL (1.3-4.6); Glucose 86 mg/dL (65-115); Lipase 62 U/L (13-60); Osmolality Calculated 296 mOsm/kg (285-295); Potassium 3.9 mmol/L (3.5-5.1); Sodium 141 mmol/L (136-145); Total Bilirubin 0.2 mg/dL (0.15-1.2); Total Protein 7.1 g/dL (6.6-8.7)
[2022-03-14 00:56] LABS: Troponin(5th) Baseline 7 ng/L (0-15)
[2022-03-14] MEDS: ondansetron 2 mg/ML SDV 2 mL 4 MG IVP (01:08)
[2022-03-14] MEDS: HYDROmorphone 1 mg/mL INJ 1 mL 0.5 MG IVP (01:09)
--- NOTE | 2022-03-14 01:59 | ECG_ITS ---
[facility] Test Date: 2022-03-14 Pat Name: Jude Burden Department: Room: Gender: Male Home Stager: : 1965 Requested By: Heidi Abreu Order Number: [id number] Chalo MD: Rashad El M.D. Measurements Intervals [place] Rate: 70 P: 73 UT: 170 QRS: 34 QRSD: 94 T: 68 QT: 398 QTc: 432 Interpretive Statements SINUS RHYTHM Compared to ECG 03/14/2022 00:11:06 No significant changes Electronically Signed On 03-14-2022 14:12:57 CDT by Rashad El M.D. [email or web address] children's hospitalAquaback Technologiesuc [facility].[employer]/store/OM/[id number]
[2022-03-14 03:16] LABS: Troponin 5 2HR 6.22 ng/L (0-15)
[2022-03-14 03:34] LABS: Troponin 5 2HR Delta -0.78 ABS# (0-10)
[2022-03-14 04:24] VITALS: BP 123/81; PULSE 87; RESP 18; O2SAT 97
== END 2022-03-14 04:25 | disposition home or self-care (01) ==
PROVIDERS: Emergency Provider Emergency Medicine; PCP Family Medicine Adult Medicine
DX: R07.9 Chest pain, unspecified (principal); Z79.82 Long term (current) use of aspirin; G20 Parkinson's disease; F17.220 Nicotine dependence, chewing tobacco, uncomplicated
CPT/HCPCS: 71045; 80053; 83690; 84484; 85025; 85610; 93005; 96374; 96375; 99285; J1170; J2405

== ENCOUNTER 2022-03-22 18:18 | Emergency (ER) | payer MEDICARE, MEDICAID, SELFPAY ==
[2022-03-22 18:58] VITALS: BP 126/80; PULSE 89; RESP 18; TEMP 37; O2SAT 96; BMI 30.1
--- NOTE | 2022-03-22 19:15 | USR_ITS ---
PROCEDURE INFORMATION: Exam: US Duplex Left Lower Extremity Veins, Limited Exam date and time: 03/22/2022 9:09 PM Age: 56 years old Clinical indication: Leg, lower; Prior surgery; Surgery date: 6+ months; Surgery type: Left total knee replacement 2012; Patient HX: Sharp, cramping pain of the left posterior calf. ; Additional info: Left lower leg swelling TECHNIQUE: Imaging protocol: Real-time Duplex ultrasound of the Left Lower Extremity with 2-D olivarez scale, color Doppler flow and spectral waveform analysis with image documentation. Limited exam focused on the left lower extremity veins. COMPARISON: No relevant prior studies available. FINDINGS: Left deep veins: Unremarkable. The common femoral, femoral, proximal profunda femoral and popliteal veins are patent without thrombus. Normal Doppler waveforms. Normal compressibility and/or augmentation response. Left superficial veins: Unremarkable. Saphenofemoral junction is patent without thrombus. Soft tissues: Unremarkable. US/CV venous duplex [facility] [id number] IMPRESSION: No evidence of deep vein thrombosis in the left leg.
[2022-03-22 20:14] LABS: Basophils % 0.6 %; Eosinophils # 0.3 10^3/uL (0.0-0.8); Hematocrit 43.6 % (42.0-52.0); Hemoglobin 14.2 g/dL (11.7-16.6); Lymphocytes # 1.9 10^3/uL (0.8-4.8); Lymphocytes % 26.6 %; Mean Corpuscular HGB Conc 32.6 g/dL (30.0-36.0); Mean Corpuscular Hemoglobin 29.2 pg (28.0-34.0); Mean Corpuscular Volume 89.5 fl (80-94); Mean Platelet Volume 9.8 fL (7.4-10.4); Monocytes # 0.6 10^3/uL (0.2-0.9); Monocytes % 8.1 %; Neutrophils # 4.18 10^3/uL (1.8-7.7); Neutrophils % 60.1 %; Nucleated Red Blood Cells % 0 %; Platelet Count 217 10^3/cmm (130-400); Red Blood Count 4.87 10^6/uL (4.1-5.3); Red Cell Distribution Width 13.6 % (12.1-15.1)
[2022-03-22 20:23] LABS: INR 0.93 (0.8-1.2)
[2022-03-22 20:38] LABS: Alanine Aminotransferase < 5 U/L (0-41); Albumin Level 3.4 g/dL (3.5-5.2); Alkaline Phosphatase 73 U/L (40-130); Anion Gap 14.4 (5-19); Aspartate Amino Transferase 13 U/L (0-40); Blood Urea Nitrogen 8 mg/dL (6-20); Calcium 8.1 mg/dL (8.5-10.5); Carbon Dioxide 25 mmol/L (22-29); Chloride 99 mmol/L (98-107); Globulin 2.8 g/dL (1.3-4.6); Glomerular Filtration Rate 116.2 mL/min (90-130); Glucose 111 mg/dL (65-115); Osmolality Calculated 279 mOsm/kg (285-295); Potassium 3.4 mmol/L (3.5-5.1); Sodium 135 mmol/L (136-145); Total Bilirubin 0.2 mg/dL (0.15-1.2); Total Protein 6.2 g/dL (6.6-8.7)
--- NOTE | 2022-03-22 22:48 | ED_ITS ---
HPI - Extremity Problem General: Chief complaint: Extremity Injury, Lower Stated complaint: possible blood clot Time Seen by Provider: 03/22/22 22:46 Source: patient Mode of arrival: ambulatory Limitations: no limitations History of Present Illness: 56-year-old male who states that last night he had some intermittent sharp pains to his left lower leg. He states that today he had some slight swelling he states that his PCP sent him up here for rule out of a DVT. His pain is minimal currently denies any chest pain or shortness of breath. Associated symptoms: Deny chest pain, fever(s) or rash Review of Systems Const: Denies: fever(s), chills, body aches or change in appetite Eyes: Denies: blurry vision or eye discomfort ENMT: Denies: throat pain or dental pain Card: Denies: chest pain Resp: Denies: dyspnea GI: Denies: abdominal pain, nausea, vomiting or diarrhea : Denies: dysuria Musc: Reports: extremity pain and extremity swelling Skin/Breast: Denies: rash Neuro: Denies: headache(s) Psych: Denies: depression [place]/Lymph: Denies: easy bruising All/Imm: Denies: urticaria PFSH ED PFSH: Medical History Anxiety and depression Chronic right shoulder pain DDD (degenerative disc disease) Deformity of both feet GERD (gastroesophageal reflux disease) Gout Hearing loss Migraines Osteoarthritis Parkinsons disease Surgical History History of back surgery x6 different surgeries on the spine Family History Father Stroke Heart attack Brother Hypertension Sister Heart attack Social History Smoking and tobacco status: current every day smoker (chewing) smokeless tobacco Smokeless tobacco user: chewing tobacco Alcohol intake: former Caregiver/support person: No Lives independently: Yes Household members: none Marital status: Single Highest education level completed: Some College, No Degree service: No Current occupational status: retired and disabled History of recent travel: Yes Current gender identity: Male Physical Exam Const: COMMON NORMALS: no acute distress, patient oriented x3 and healthy appearing HENMT: COMMON NORMALS: normocephalic and atraumatic HEAD & SCALP: normocephalic and atraumatic Eye: COMMON NORMALS: Equal, round and reactive pupils present and EOMs intact bilaterally PUPIL: Yes Equal, round and reactive pupils present Neck/C-Spine: COMMON NORMALS: full ROM and supple Chest: COMMONS NORMALS: normal inspection of the chest and normal palpation of entire chest wall Resp: COMMON NORMALS: normal respiratory effort, No retractions, No use of accessory muscles and clear to auscultation bilaterally AUSCULTATION: clear to auscultation bilaterally Cardio: COMMON NORMALS: regular rate, regular rhythm and No murmurs present (Cardio) RATE: regular rate RHYTHM: regular rhythm GI: COMMON NORMALS: Normal to inspection, nondistended, normoactive bowel sounds present, Soft to palpation, non-tender and no masses PALPATION: Yes Soft to palpation Extremity: COMMON NORMALS: normal to inspection and full ROM Neuro: COMMON NORMALS: patient oriented x3, moves all extremities and no focal motor deficits Psych: COMMON NORMALS: mental status grossly normal, Normal thought process present and cooperative THOUGHT PROCESS: Normal thought process present Skin: COMMON NORMALS: no rashes or lesions noted and no wounds GENERAL SKIN EXAM: no rashes or lesions noted Course Vital Signs: Vital signs: Vital Signs Temperature 98.6 F 03/22/22 18:58 Pulse Rate 89 03/22/22 18:58 Respiratory Rate 18 03/22/22 18:58 Blood Pressure 126/80 03/22/22 18:58 Pulse Oximetry 96 03/22/22 18:58 Oxygen Delivery Me thod 03/22/22 18:58 MDM - Extremity (Nontraumatic) Medical Decision Making Patient presents with left leg pain and swelling his exam here is benign he is got good distal pulses ultrasound is normal blood works normal no signs of cellulitis he is stable for discharge he is to follow-up PCP and return if worsening. Lab Data : 03/22/22 20:03 03/22/22 20:03 Radiology Impressions Venous Duplex 03/22/22 19:15 IMPRESSION: No evidence of deep vein thrombosis in the left leg. Laboratory Results WBC 7.0 10^3/uL (4.0-10.0) 03/22/22 20:03 RBC 4.87 10^6/uL (4.1-5.3) 03/22/22 20:03 Hgb 14.2 g/dL (11.7-16.6) 03/22/22 20:03 Hct 43.6 % (42.0-52.0) 03/22/22 20: MCV 89.5 fl (80-94) 03/22/22 20:03 MCH 29.2 pg (28.0-34.0) 03/22/22 20: MCHC 32.6 g/dL (30.0-36.0) 03/22/22 20:03 RDW 13.6 % (12.1-15.1) 03/22/22 20:03 Plt Count 217 10^3/cmm (130-400) 03/22/22 20: MPV 9.8 fL (7.4-10.4) 03/22/22 20:03 Neut % (Auto) 60.1 % 03/22/22 20: Lymph % (Auto) 26.6 % 03/22/22 20: [place] % (Auto) 8.1 % 03/22/22 20: Eos % (Auto) 4.0 % 03/22/22 20: Baso % (Auto) 0.6 % 03/22/22 20: Neut # (Auto) 4.18 10^3/uL (1.8-7.7) 03/22/22 20: Lymph # (Auto) 1.9 10^3/uL (0.8-4.8) 03/22/22 20: [place] # (Auto) 0.6 10^3/uL (0.2-0.9) 03/22/22 20: Eos # (Auto) 0.3 10^3/uL (0.0-0.8) 03/22/22 20: Baso # (Auto) 0.0 10^3/uL (0.0-0.1) 03/22/22 20: Nucleated RBC % (auto) 0 % 03/22/22 20: Nucleated RBCs # 0.0 /100WBC 03/22/22 20: PT 12.80 SECONDS (12.1-14.9) 03/22/22 20: INR 0.93 (0.8-1.2) 03/22/22 20:03 Sodium 135 mmol/L (136-145) L 03/22/22 20:03 Potassium 3.4 mmol/L (3.5-5.1) L 03/22/22 20:03 Chloride 99 mmol/L (98-107) 03/22/22 20:03 Carbon Dioxide 25 mmol/L (22-29) 03/22/22 20:03 Anion Gap 14.4 (5-19) 03/22/22 20:03 BUN 8 mg/dL (6-20) 03/22/22 20:03 Creatinine 0.7 mg/dL (0.7-1.2) 03/22/22 20:03 GFR Calculation 116.2 mL/min (90-130) 03/22/22 20:03 Glucose 111 mg/dL (65-115) 03/22/22 20:03 Calculated Osmolality 279 mOsm/kg (285-295) L 03/22/22 20:03 Calcium 8.1 mg/dL (8.5-10.5) L 03/22/22 20:03 Total Bilirubin 0.2 mg/dL (0.15-1.2) 03/22/22 20:03 AST 13 U/L (0-40) 03/22/22 20:03 ALT < 5 U/L (0-41) 03/22/22 20:03 Alkaline Phosphatase 73 U/L (40-130) 03/22/22 20:03 Total Protein 6.2 g/dL (6.6-8.7) L 03/22/22 20:03 Albumin 3.4 g/dL (3.5-5.2) L 03/22/22 20:03 Globulin 2.8 g/dL (1.3-4.6) 03/22/22 20:03 Discharge Plan Discharge Patient Disposition: Home Clinical Impression: Left leg pain Condition: Stable Prescriptions: No Action colchicine 0.6 mg tablet 0.6 mg PO DAILY PRN (Reason: gout) Qty: 90 2RF aspirin [Adult Low Dose Aspirin] 81 mg tablet,delayed release (DR/EC) 81 mg PO DAILY Qty: 90 3RF metoprolol tartrate 25 mg tablet 37.5 mg PO BID Qty: 270 3RF carbidopa-levodopa 25-250 mg tablet See Rx Instructions .ROUTE .COMPLEX Qty: 120 5RF Dose Instruction: take ONE tablet BY MOUTH FOUR TIMES DAILY Rx Instructions: take ONE tablet BY MOUTH FOUR TIMES DAILY indomethacin 75 mg capsule, extended release 75 mg PO BID PRN (Reason: pain) Qty: 14 2RF omeprazole 40 mg capsule,delayed release(DR/EC) See Rx Instructions .ROUTE .COMPLEX Qty: 30 11RF Dose Instruction: TAKE ONE CAPSULE BY MOUTH EVERY DAY NEEDED FOR ACID REFLUX Rx Instructions: TAKE ONE CAPSULE BY MOUTH EVERY DAY NEEDED FOR ACID REFLUX Discharge Orders: Discharge ED (Routine); Ordered 03/22/22 Ordered By: Heidi Abreu Referrals: Wali Moon MD [Primary Care Provider] - Discharge Diet: Advance as tolerated Discharge Activity: Resume usual activity Patient Instructions: Leg Pain (ED) Coding Level of Care Code ED Product Marketing Specialist for Mu Pressley
[2022-03-22] MEDS: morphine 4 mg/mL SDV 1 mL IM (23:24)
[2022-03-22 23:25] VITALS: BP 126/80; PULSE 89; RESP 18; TEMP 37; O2SAT 96
== END 2022-03-22 23:25 | disposition home or self-care (01) ==
PROVIDERS: Emergency Provider Emergency Medicine; PCP Family Medicine Adult Medicine
DX: M79.605 Pain in left leg (principal); Z79.82 Long term (current) use of aspirin; G20 Parkinson's disease; F17.220 Nicotine dependence, chewing tobacco, uncomplicated
CPT/HCPCS: 36415; 80053; 85025; 85610; 93971; 96372; 99284; J2270

== ENCOUNTER 2022-04-05 06:59 | Outpatient (CLI) | payer MEDICARE, MEDICAID, SELFPAY ==
--- NOTE | 2022-04-05 | ECG_ITS ---
[facility] Test Date: 2022-04-05 Pat Name: Jude Burden Department: Room: Gender: Male Plow Shaker: Opal Lowe : 1965 Requested By: Rashad El Order Number: [id number] Chalo MD: Rashad El M.D. Interpretive Statements NAME OF STUDY: LEXISCAN SESTAMIBI STRESS TEST INDICATION: [Chest Pain, ] Procedure: At the baseline, the blood pressure was 133/96 mmHg with a heart rate of 69 bpm. The electrocardiogram showed normal sinus rhythm, normal axis with normal ST and T's. The Lexiscan was infused over a period of 20 seconds. A total of 0.4 mg of Lexiscan was infused. The stress phase was continued for a total of 5 minutes. Heart rate was at the end of stress phase was 88 bpm and a blood pressure of 128/85 mmHg. The EKG at the peak infusion revealed normal sinus rhythm with no significant ST-T wave changes. Sestamibi was injected 20 seconds after the Lexiscan infusion. Blood pressure at the end of recovery phase was 128/84 mmHg with a heart rate of 85 bpm. Conclusion: 1. Normal EKG response to Lexiscan infusion 2. No Lexiscan induced chest pain or cardiac arrhythmia. 3. Normal blood pressure and heart rate response. 4. Sestamibi/sestamibi perfusion scan pending; see separate report. Electronically Signed On 04-05-2022 11:45:01 CDT by Rashad El M.D. [email or web address] Communityclevel[facility].[employer]/store/[id number]
[2022-04-05 07:59] VITALS: BMI 31.6
--- NOTE | 2022-04-05 08:04 | NMCV_ITS ---
NM adeola perf SPECT r/s* [id number] Burden Jude Age: 56 Gender: M : 1965 Exam Date: 04/05/2022 08:50 Ordering Phys: Rashad El M.D ([email or web address]) Technologist: YANETH Terry Exam Location: [facility] Indications: CHEST PAIN STRESS TEST [facility] IMAGE PROTOCOL Rest/Stress 1 Lexiscan Day Radiopharmaceutical Dose (mCi) Administration Site Administered by Rest: Tc-99m 10.7 IV YANETH Salinas Sestamibi Stress:Tc-99m 33.0 IV YANETH Salinas Sestamibi Rest: 05-Apr-2022 60 Discovery 630 Stress: 05-Apr-2022 30 Discovery 630 0.4mg Lexiscan. Images obtained in supine and prone position. SPECT RESULTS Technical Quality: Excellent Raw Data Analysis: Normal Image Corrections: No attenuation or motion correction applied Summed Stress Score: 2 Summed Rest Score: 5 Summed Difference Score: 2 PERFUSION FINDINGS There is a partially reversible, medium sized perfusion defect noted in apical lateral and inferolateral wall. This is consistent with medium sized prior infarct with krys-infarct ischemia. FUNCTIONAL RESULTS (calculated via Gated SPECT) Stress Image LV EF (%): 74 Stress EDV (mL):84 TID: 0.9 Stress ESV (mL):22 FUNCTIONAL FINDINGS: There is normal left ventricular systolic function. IMPRESSIONS 1. Abnormal myocardial perfusion imaging with evidence of prior infarct with krys-infarct ischemia noted in the left circumflex artery territory. 2. LV systolic function is normal Rashad El MD (Electronically Signed) Final Date: 05 April 2022 11:30 S
[2022-04-05] MEDS: aminophylline 25 mg/mL SDV 10 mL IVP (09:23)
[2022-04-05 09:30] VITALS: BP 128/84; PULSE 88
== END 2022-04-05 07:00 | disposition home or self-care (01) ==
LOC: CDL 07:02
PROVIDERS: PCP Family Medicine Adult Medicine; Visit Provider Internal Medicine
DX: R07.9 Chest pain, unspecified (principal)
CPT/HCPCS: 78452; 93017; A9500; J0280

== ENCOUNTER 2022-04-15 21:03 | Emergency (ER) | payer MEDICARE, MEDICAID, SELFPAY ==
[2022-04-15 21:04] VITALS: BMI 36.8
[2022-04-15 21:13] VITALS: BP 129/85; PULSE 86; RESP 16; TEMP 36.9; O2SAT 97
--- NOTE | 2022-04-15 21:21 | XRR_ITS ---
PROCEDURE INFORMATION: Exam: XR Chest Exam date and time: 04/15/2022 9:59 PM Age: 56 years old Clinical indication: Pain; Chest pressure; Additional info: Cp TECHNIQUE: Imaging protocol: Radiologic exam of the chest. Views: 1 view. COMPARISON: CR (CHEST, ) 03/14/2022 12:22 AM FINDINGS: Lungs: Lungs are clear bilaterally. Pleural spaces: No pleural effusion. No pneumothorax. Heart/Mediastinum: The cardiac silhouette and mediastinal contours are unremarkable. Bones/joints: Stable degenerative changes in the spine and shoulders. Other findings: Stable changes consistent with previous fusion in the visualized cervical spine. XR/XR chest 1V portable [id number] IMPRESSION: 1. No acute cardiopulmonary process. 2. Incidental/nonacute findings are listed in the report.
--- NOTE | 2022-04-15 21:21 | ECG_ITS ---
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 Measurements Intervals [place] Rate: 77 P: 58 MD: 171 QRS: 3 QRSD: 91 T: 29 QT: 367 QTc: 416 Interpretive Statements SINUS RHYTHM Compared to ECG 03/14/2022 01:59:47 No significant changes Electronically Signed On 04-16-2022 14:52:25 CDT by Kelechi Solitario M.D. [email or web address].Hera Therapeuticslawrence county [email or web address] system.[employer]/store/[id number]
[2022-04-15] MEDS: ondansetron 2 mg/ML SDV 2 mL 4 MG IVP (21:44)
[2022-04-15] MEDS: nitroglycerin 1 gm/inch oint Pkt 1 INCH TOPICAL (21:44)
[2022-04-15] MEDS: morphine 4 mg/mL SDV 1 mL IVP ×2 (21:44→23:36)
[2022-04-15 21:47] VITALS: BP 148/96; PULSE 77; RESP 18; O2SAT 91
[2022-04-15 22:03] LABS: Basophils % 0.6 %; Eosinophils # 0.2 10^3/uL (0.0-0.8); Eosinophils % 2.4 %; Hematocrit 48.7 % (42.0-52.0); Hemoglobin 16.2 g/dL (11.7-16.6); Lymphocytes # 1.9 10^3/uL (0.8-4.8); Lymphocytes % 27.7 %; Mean Corpuscular HGB Conc 33.3 g/dL (30.0-36.0); Mean Corpuscular Hemoglobin 29.9 pg (28.0-34.0); Mean Corpuscular Volume 89.9 fl (80-94); Mean Platelet Volume 9.7 fL (7.4-10.4); Monocytes # 0.6 10^3/uL (0.2-0.9); Monocytes % 8.7 %; Neutrophils # 4.19 10^3/uL (1.8-7.7); Nucleated Red Blood Cells % 0 %; Platelet Count 258 10^3/cmm (130-400); Red Blood Count 5.42 10^6/uL (4.1-5.3); Red Cell Distribution Width 13.9 % (12.1-15.1)
[2022-04-15 22:16] LABS: INR 0.97 (0.8-1.2)
[2022-04-15 22:17] LABS: Partial Thromboplastin Time 26.2 SECONDS (23.9-36.7)
[2022-04-15 22:22] VITALS: PULSE 75; RESP 20; O2SAT 95
[2022-04-15 22:30] LABS: Troponin(5th) Baseline 7 ng/L (0-15)
[2022-04-15 22:34] LABS: Alanine Aminotransferase 6 U/L (0-41); Albumin Level 3.9 g/dL (3.5-5.2); Alkaline Phosphatase 84 U/L (40-130); Anion Gap 16.1 (5-19); Aspartate Amino Transferase 12 U/L (0-40); Blood Urea Nitrogen 13 mg/dL (6-20); Carbon Dioxide 26 mmol/L (22-29); Chloride 102 mmol/L (98-107); Glomerular Filtration Rate 62.4 mL/min (90-130); Glucose 80 mg/dL (65-115); NT Pro B Type Natriuretic Pept 38 pg/mL (0-125); Osmolality Calculated 289 mOsm/kg (285-295); Potassium 4.1 mmol/L (3.5-5.1); Sodium 140 mmol/L (136-145); Total Bilirubin 0.3 mg/dL (0.15-1.2); Total Protein 6.9 g/dL (6.6-8.7)
--- NOTE | 2022-04-15 23:09 | ED_ITS ---
HPI - Chest Pain General: Chief Complaint: Chest Pain Stated Complaint: chest pain Time Seen by Provider: 04/15/22 21:08 Source: patient History of Present Illness: 56-year-old gentleman evidently with a history of an abnormal stress test he has been seen by cardiology, and they were to proceed with outpatient diagnostic angiogram. He presents with chest discomfort that started earlier in the evening while sitting at home. He vomited 1 time. He was short of breath. This was sometime after supper. Nitroglycerin by EMS helped with the pain. He presents with a 3 out of 10 discomfort. It is dull. Radiates into his neck with some paresthesia to his left face MD complaint: chest pain Onset (ago): hour(s) Timing of current episode: constant Prior episodes: Yes Onset: during rest Pain location: substernal Pain radiation: left arm and other (Face) Quality: dull Relieving factors: nitroglycerin Exacerbating factors: nothing Associated symptoms: Reports dyspnea, nausea, syncope (Near syncope) and vomiting; Deny abdominal pain, diaphoresis, fever(s) or palpitations Review of Systems Const: Denies: fever(s) or diaphoresis ENMT: Denies: throat pain Card: Reports: syncope (Near syncope); Denies: palpitations Resp: Reports: dyspnea GI: Reports: nausea and vomiting; Denies: abdominal pain PFSH ED PFSH: Medical History Anxiety and depression Chronic right shoulder pain DDD (degenerative disc disease) Deformity of both feet GERD (gastroesophageal reflux disease) Gout Hearing loss Migraines Osteoarthritis Parkinsons disease Surgical History History of back surgery x6 different surgeries on the spine Family History Father Stroke Heart attack Brother Hypertension Sister Heart attack Social History Smoking and tobacco status: current every day smoker (chewing) smokeless tobacco Smokeless tobacco user: chewing tobacco Alcohol intake: former Caregiver/support person: No Lives independently: Yes Household members: none Marital status: Single Highest education level completed: Some College, No Degree service: No Current occupational status: retired and disabled History of recent travel: Yes Current gender identity: Male Physical Exam Const: COMMON NORMALS: no acute distress GENERAL APPEARANCE: cooperative; not ill appearing and not frail appearing HENMT: COMMON NORMALS: normocephalic, atraumatic and Normal external nose present HEAD & SCALP: normocephalic and atraumatic FACE & SINUS: normal facial exam and face symmetric NOSE: Normal external nose present Eye: COMMON NORMALS: Equal, round and reactive pupils present and EOMs intact bilaterally PUPIL: Yes Equal, round and reactive pupils present Neck/C-Spine: GENERAL: Yes trachea midline Chest: CHEST: Yes Symmetrical chest wall rise Resp: COMMON NORMALS: normal respiratory effort, No retractions, No use of accessory muscles and clear to auscultation bilaterally AUSCULTATION: clear to auscultation bilaterally Cardio: COMMON NORMALS: regular rate and regular rhythm RATE: regular rate RHYTHM: regular rhythm GI: COMMON NORMALS: Normal to inspection, nondistended, normoactive bowel sounds present Extremity: COMMON NORMALS: no pedal edema Neuro: REZA COMA SCALE: document GCS findings Reza coma scale eye opening: Spontaneous Reza coma scale verbal response: Orientated Heidrick coma scale motor response: Obey commands Heidrick coma scale total score: 15 SENSORY EXAM: Yes extremities (intact) Psych: COMMON NORMALS: speech normal SPEECH: Yes normal speech Skin: COMMON NORMALS: no rashes or lesions noted GENERAL SKIN EXAM: no rashes or lesions noted Course Vital Signs: Vital signs: Vital Signs Temperature 98.4 F 04/15/22 21:13 Pulse Rate 75 04/15/22 22:22 Respiratory Rate 20 H 04/15/22 22:22 Blood Pressure 148/96 04/15/22 21:47 Pulse Oximetry 95 04/15/22 22:22 Oxygen Delivery Me thod 04/15/22 21:13 MDM - Chest Pain Medical Decision Making CBC is normal. BMP is normal. Liver enzymes are normal. Chest x-ray shows no acute infiltrate. Troponin is 7. EKG shows a normal sinus rhythm with normal axes and intervals, rate is 75 and there are absolutely no ST changes.. 2-hour troponin is unchanged. EKG is unchanged. Heart rate is 70. Blood pressure 136/88, saturations 94% on room air. Respirations 16. He will be allowed discharged to follow-up with cardiology at their direction. [facility]. Lab Data : 04/15/22 21:59 04/15/22 21:59 Radiology Impressions Chest X-Ray 04/15/22 21:21 IMPRESSION: 1. No acute cardiopulmonary process. 2. Incidental/nonacute findings are listed in the report. Laboratory Results WBC 7.0 10^3/uL (4.0-10.0) 04/15/22 21:59 RBC 5.42 10^6/uL (4.1-5.3) H 04/15/22 21:59 Hgb 16.2 g/dL (11.7-16.6) 04/15/22 21:59 Hct 48.7 % (42.0-52.0) 04/15/22 21:59 MCV 89.9 fl (80-94) 04/15/22 21:59 MCH 29.9 pg (28.0-34.0) 04/15/22 21:59 MCHC 33.3 g/dL (30.0-36.0) 04/15/22 21:59 RDW 13.9 % (12.1-15.1) 04/15/22 21:59 Plt Count 258 10^3/cmm (130-400) 04/15/22 21:59 MPV 9.7 fL (7.4-10.4) 04/15/22 21:59 Neut % (Auto) 60.0 % 04/15/22 21:59 Lymph % (Auto) 27.7 % 04/15/22 21:59 [place] % (Auto) 8.7 % 04/15/22 21:59 Eos % (Auto) 2.4 % 04/15/22 21:59 Baso % (Auto) 0.6 % 04/15/22 21:59 Neut # (Auto) 4.19 10^3/uL (1.8-7.7) 04/15/22 21:59 Lymph # (Auto) 1.9 10^3/uL (0.8-4.8) 04/15/22 21:59 [place] # (Auto) 0.6 10^3/uL (0.2-0.9) 04/15/22 21:59 Eos # (Auto) 0.2 10^3/uL (0.0-0.8) 04/15/22 21:59 Baso # (Auto) 0.0 10^3/uL (0.0-0.1) 04/15/22 21:59 Nucleated RBC % (auto) 0 % 04/15/22 21:59 Nucleated RBCs # 0.0 /100WBC 04/15/22 21:59 PT 13.20 SECONDS (12.1-14.9) 04/15/22 21:59 INR 0.97 (0.8-1.2) 04/15/22 21:59 APTT 26.2 SECONDS (23.9-36.7) 04/15/22 21:59 Sodium 140 mmol/L (136-145) 04/15/22 21:59 Potassium 4.1 mmol/L (3.5-5.1) 04/15/22 21:59 Chloride 102 mmol/L (98-107) 04/15/22 21:59 Carbon Dioxide 26 mmol/L (22-29) 04/15/22 21:59 Anion Gap 16.1 (5-19) 04/15/22 21:59 BUN 13 mg/dL (6-20) 04/15/22 21:59 Creatinine 1.2 mg/dL (0.7-1.2) 04/15/22 21:59 GFR Calculation 62.4 mL/min (90-130) L 04/15/22 21:59 Glucose 80 mg/dL (65-115) 04/15/22 21:59 Calculated Osmolality 289 mOsm/kg (285-295) 04/15/22 21:59 Calcium 9.0 mg/dL (8.5-10.5) 04/15/22 21:59 Total Bilirubin 0.3 mg/dL (0.15-1.2) 04/15/22 21:59 AST 12 U/L (0-40) 04/15/22 21:59 ALT 6 U/L (0-41) 04/15/22 21:59 Alkaline Phosphatase 84 U/L (40-130) 04/15/22 21:59 Troponin T Baseline 7 ng/L (0-15) 04/15/22 21:59 Troponin T 120 Minute 6.69 ng/L (0-15) 04/15/22 23:19 Delta Troponin T -0.31 ABS# (0-10) L 04/15/22 23:19 NT-Pro-B Natriuret Pep 38 pg/mL (0-125) 04/15/22 21:59 Total Protein 6.9 g/dL (6.6-8.7) 04/15/22 21:59 Albumin 3.9 g/dL (3.5-5.2) 04/15/22 21:59 Globulin 3.0 g/dL (1.3-4.6) 04/15/22 21:59 Discharge Plan Discharge Patient Disposition: Home Clinical Impression: Chest pain Condition: Stable Prescriptions: New isosorbide mononitrate 30 mg tablet extended release 24 hr 30 mg PO DAILY Qty: 30 0RF No Action colchicine 0.6 mg tablet 0.6 mg PO DAILY PRN (Reason: gout) Qty: 90 2RF aspirin [Adult Low Dose Aspirin] 81 mg tablet,delayed release (DR/EC) 81 mg PO DAILY Qty: 90 3RF metoprolol tartrate 25 mg tablet 37.5 mg PO BID Qty: 270 3RF carbidopa-levodopa 25-250 mg tablet See Rx Instructions .ROUTE .COMPLEX Qty: 120 5RF Dose Instruction: take ONE tablet BY MOUTH FOUR TIMES DAILY Rx Instructions: take ONE tablet BY MOUTH FOUR TIMES DAILY indomethacin 75 mg capsule, extended release 75 mg PO BID PRN (Reason: pain) Qty: 14 2RF omeprazole 40 mg capsule,delayed release(DR/EC) See Rx Instructions .ROUTE .COMPLEX Qty: 30 11RF Dose Instruction: TAKE ONE CAPSULE BY MOUTH EVERY DAY NEEDED FOR ACID REFLUX Rx Instructions: TAKE ONE CAPSULE BY MOUTH EVERY DAY NEEDED FOR ACID REFLUX Discharge Orders: Discharge ED (Routine); Ordered 04/16/22 Ordered By: Saeid Schofield Referrals: Wali Moon MD [Primary Care Provider] - Rashad El M.D [Physician] - 1-3 days Patient Instructions: Chest Pain (ED), Opioid Safety, Pain Management Activity Restrictions/Additional Instructions: Call your heart doctor in the morning if you do not hear from them. They will likely want to follow-up with you in clinic or schedule more outpatient tests. Medication as directed. It can help with your chest pain while you are waiting for further direction from cardiology. Coding Level of Care Code ED Sizing Machine Operator for Emilyg Fwd Exam Comprehensive
--- NOTE | 2022-04-15 23:21 | ECG_ITS ---
[facility] Test Date: 2022-04-15 Pat Name: Jude Burden Department: Room: Gender: Male Underwriting Consultant: : 1965 Requested By: Saeid Roque Order Number: [id number] Ch[place] MD: Kelechi Solitario M.D. Measurements Intervals [place] Rate: 72 P: 61 [place]: 174 QRS: 1 QRSD: 113 T: 35 QT: 383 QTc: 420 Interpretive Statements SINUS RHYTHM MODERATE INTRAVENTRICULAR CONDUCTION DELAY [110+ ms QRS DURATION] Compared to ECG 04/15/2022 21:34:05 Intraventricular conduction delay now present Electronically Signed On 04-16-2022 14:56:47 CDT by Kelechi Solitario M.D. [email or web address] - OnvelopSimmerythe surgical hospital at southwoodsEve Biomedical/store/OM/[id number]
[2022-04-15 23:49] LABS: Troponin 5 2HR 6.69 ng/L (0-15)
[2022-04-16 00:01] LABS: Troponin 5 2HR Delta -0.31 ABS# (0-10)
[2022-04-16 01:12] VITALS: BP 118/76; PULSE 78; RESP 18; O2SAT 95
== END 2022-04-16 01:14 | disposition home or self-care (01) ==
PROVIDERS: Emergency Provider Emergency Medicine; PCP Family Medicine Adult Medicine
DX: R07.9 Chest pain, unspecified (principal); Z79.82 Long term (current) use of aspirin; F17.220 Nicotine dependence, chewing tobacco, uncomplicated; G20 Parkinson's disease
CPT/HCPCS: 36415; 71045; 80053; 83880; 84484; 85025; 85610; 85730; 93005; 96374; 96375; 96376; 99285; J2270; J2405

== ENCOUNTER 2022-05-01 15:50 | Outpatient (CLI) | payer MEDICARE, MEDICAID, SELFPAY ==
[2022-05-01 16:25] LABS: Basophils # 0.1 10^3/uL (0.0-0.1); Basophils % 0.6 %; Eosinophils # 0.2 10^3/uL (0.0-0.8); Eosinophils % 2.3 %; Hematocrit 51.9 % (42.0-52.0); Hemoglobin 16.9 g/dL (11.7-16.6); Lymphocytes # 1.8 10^3/uL (0.8-4.8); Lymphocytes % 23.2 %; Mean Corpuscular HGB Conc 32.6 g/dL (30.0-36.0); Mean Platelet Volume 8.9 fL (7.4-10.4); Monocytes # 0.5 10^3/uL (0.2-0.9); Monocytes % 5.7 %; Neutrophils # 5.32 10^3/uL (1.8-7.7); Neutrophils % 67.8 %; Nucleated Red Blood Cells % 0 %; Platelet Count 267 10^3/cmm (130-400); Red Blood Count 5.83 10^6/uL (4.1-5.3); Red Cell Distribution Width 13.6 % (12.1-15.1); White Blood Count 7.9 10^3/uL (4.0-10.0)
[2022-05-01 16:43] LABS: INR 0.99 (0.83-1.21); Prothrombin Time (Patient) 13.3 Seconds (12.0-15.1)
[2022-05-01 16:46] LABS: Anion Gap 15.1 (5-19); Blood Urea Nitrogen 8 mg/dL (6-20); Calcium 9.6 mg/dL (8.5-10.5); Carbon Dioxide 29 mmol/L (22-29); Chloride 99 mmol/L (98-107); Glomerular Filtration Rate 99.3 mL/min (90-130); Glucose 103 mg/dL (65-115); Osmolality Calculated 289 mOsm/kg (285-295); Potassium 3.1 mmol/L (3.5-5.1); Sodium 140 mmol/L (136-145)
== END 2022-05-01 15:51 | disposition home or self-care (01) ==
LOC: LAB 15:53
PROVIDERS: PCP Family Medicine Adult Medicine; Visit Provider Internal Medicine
DX: R07.9 Chest pain, unspecified (principal); R58 Hemorrhage, not elsewhere classified
CPT/HCPCS: 36415; 80048; 85025; 85610

== ENCOUNTER 2022-05-01 16:24 | Emergency (ER) | payer MEDICARE, MEDICAID, SELFPAY ==
[2022-05-01 16:29] VITALS: BP 170/92; PULSE 94; RESP 16; TEMP 36.1; O2SAT 98
--- NOTE | 2022-05-01 17:15 | W.ED.CHESTPA ---
Documented by User: Gavin Blackman DO 05/02/22 06:56 HPI - Chest Pain General: Chief Complaint: Chest Pain Stated Complaint: sent by heart dr Time Seen by Provider: 05/01/22 16:48 Source: patient Mode of arrival: ambulatory History of Present Illness: 57-year-old male presents emergency room [place] chest pain for the last approximately 3 or 4 days. He had recently been in the emergency room was seen and evaluated for chest pain he was discharged home on isosorbide mononitrate unfortunately he never had the prescription filled he was seen earlier today and evaluated for coronary angiogram had lab work done it was a CBC and his CMP is essentially unremarkable his potassium was slightly low at 3.1. He denied chest pain at the time that he was seen by Dr. Moon earlier today. He then went to the cardiology clinic stated chest pain for several days he was directed here. 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 He states he continues to have chest pain now and is also having headache. MD complaint: chest pain Onset (ago): day(s) (3-4) Timing of current episode: episodic Prior episodes: Yes Onset: during rest Pain location: left chest Pain radiation: none Severity: mild Quality: heaviness Relieving factors: nothing Exacerbating factors: nothing Associated symptoms: Deny abdominal pain, diaphoresis, dyspnea, fever(s), leg edema, nausea, palpitations, sense of impending doom, syncope or vomiting Treatment prior to arrival: aspirin Review of Systems Const: Denies: fever(s), chills or diaphoresis ENMT: Denies: throat pain, ear or mastoid pain, nasal discharge or nasal congestion Card: Reports: chest pain; Denies: palpitations or syncope Resp: Denies: dyspnea GI: Denies: abdominal pain, nausea or vomiting : Denies: flank pain, dysuria, urinary frequency or urinary urgency Musc: Denies: neck pain or back pain Skin/Breast: Denies: rash or pruritus PFS ED PFSH: Medical History Anxiety and depression CAD (coronary artery disease) Chronic right shoulder pain DDD (degenerative disc disease) Decreased glomerular filtration rate (GFR) Deformity of both feet Eustachian tube dysfunction GERD (gastroesophageal reflux disease) Gout Hearing loss Hypertension Migraines Osteoarthritis Parkinsons disease Pre-procedural examination Surgical History History of back surgery x6 different surgeries on the spine Family History Father Stroke Heart attack Brother Hypertension Sister Heart attack Social History Smoking and tobacco status: current every day smoker (chewing) smokeless tobacco Smokeless tobacco user: chewing tobacco Alcohol intake: former Desire information about alcohol rehabilitation?: No Desire information about substance/drug rehabilitation?: No Caregiver/support person: No Lives independently: Yes Household members: none Marital status: Single Highest education level completed: Some College, No Degree service: No Current occupational status: retired and disabled History of recent travel: Yes Current gender identity: Male Physical Exam Const: GENERAL APPEARANCE: cooperative and comfortable ORIENTATION/CONSCIOUSNESS: Yes awake, Yes oriented to person, Yes oriented to place and Yes oriented to time HENMT: COMMON NORMALS: normocephalic, atraumatic and hearing grossly normal bilaterally HEAD & SCALP: normocephalic and atraumatic Resp: COMMON NORMALS: normal respiratory effort, No retractions, No use of accessory muscles and clear to auscultation bilaterally AUSCULTATION: clear to auscultation bilaterally Cardio: COMMON NORMALS: regular rate, regular rhythm and No murmurs present (Cardio) RATE: regular rate RHYTHM: regular rhythm GI: COMMON NORMALS: Soft to palpation and No hepatosplenomegaly present AUSCULTATION: Yes normoactive bowel sounds PALPATION: Yes Soft to palpation, No Tenderness to palpation present (GI), No Guarding due to palpation present (GI) and Yes No hepatosplenomegaly present Extremity: COMMON NORMALS: normal to inspection, capillary refill normal, no clubbing, cyanosis or edema, no calf tenderness and no pedal edema Neuro: SENSORIUM/ORIENTATION: Yes oriented to person, Yes oriented to place and Yes oriented to time Skin: COMMON NORMALS: no rashes or lesions noted GENERAL SKIN EXAM: no rashes or lesions noted Course Vital Signs: Vital signs: Vital Signs Temperature 97.0 F L 05/01/22 16:29 Pulse Rate 93 05/01/22 21:09 Respiratory Rate 14 05/01/22 21:09 Blood Pressure 129/88 05/01/22 21:09 Pulse Oximetry 95 05/01/22 21:09 Oxygen Delivery Me thod 05/01/22 20:17 MDM - Chest Pain Medical Decision Making Care signed out to Dr. Abreu at change of shift. See final notes for diagnosis and disposition. Pending labs Patient presents for chest pains atypical in nature his repeat troponin here is negative he has a cardiac cath scheduled in the morning he is to return then he stable for discharge. Lab Data : 05/01/22 18:10 05/01/22 18:10 Radiology Impressions Chest X-Ray 05/01/22 17:23 IMPRESSION: No acute findings. Laboratory Results WBC 8.2 10^3/uL (4.0-10.0) 05/01/22 18:10 RBC 5.71 10^6/uL (4.1-5.3) H 05/01/22 18:10 Hgb 16.5 g/dL (11.7-16.6) 05/01/22 18:10 Hct 51.1 % (42.0-52.0) 05/01/22 18:10 MCV 89.5 fl (80-94) 05/01/22 18:10 MCH 28.9 pg (28.0-34.0) 05/01/22 18:10 MCHC 32.3 g/dL (30.0-36.0) 05/01/22 18:10 RDW 13.6 % (12.1-15.1) 05/01/22 18:10 Plt Count 269 10^3/cmm (130-400) 05/01/22 18:10 MPV 8.9 fL (7.4-10.4) 05/01/22 18:10 Neut % (Auto) 63.6 % 05/01/22 18:10 Lymph % (Auto) 26.6 % 05/01/22 18:10 [place] % (Auto) 6.6 % 05/01/22 18:10 Eos % (Auto) 2.4 % 05/01/22 18:10 Baso % (Auto) 0.6 % 05/01/22 18:10 Neut # (Auto) 5.20 10^3/uL (1.8-7.7) 05/01/22 18:10 Lymph # (Auto) 2.2 10^3/uL (0.8-4.8) 05/01/22 18:10 [place] # (Auto) 0.5 10^3/uL (0.2-0.9) 05/01/22 18:10 Eos # (Auto) 0.2 10^3/uL (0.0-0.8) 05/01/22 18:10 Baso # (Auto) 0.1 10^3/uL (0.0-0.1) 05/01/22 18:10 Nucleated RBC % (auto) 0 % 05/01/22 18:10 Nucleated RBCs # 0.0 /100WBC 05/01/22 18:10 Sodium 144 mmol/L (136-145) 05/01/22 18:10 Potassium 3.8 mmol/L (3.5-5.1) 05/01/22 18:10 Chloride 103 mmol/L (98-107) 05/01/22 18:10 Carbon Dioxide 28 mmol/L (22-29) 05/01/22 18:10 Anion Gap 16.8 (5-19) 05/01/22 18:10 BUN 8 mg/dL (6-20) 05/01/22 18:10 Creatinine 0.8 mg/dL (0.7-1.2) 05/01/22 18:10 GFR Calculation 99.3 mL/min (90-130) 05/01/22 18:10 Glucose 84 mg/dL (65-115) 05/01/22 18:10 Calculated Osmolality 296 mOsm/kg (285-295) H 05/01/22 18:10 Calcium 9.6 mg/dL (8.5-10.5) 05/01/22 18:10 Total Bilirubin 0.4 mg/dL (0.15-1.2) 05/01/22 18:10 AST 16 U/L (0-40) 05/01/22 18:10 ALT < 5 U/L (0-41) 05/01/22 18:10 Alkaline Phosphatase 72 U/L (40-130) 05/01/22 18:10 Troponin T Baseline 7 ng/L (0-15) 05/01/22 18:10 Troponin T 120 Minute 9.04 ng/L (0-15) 05/01/22 20:32 Delta Troponin T 2.04 ABS# (0-10) 05/01/22 20:32 Total Protein 7.3 g/dL (6.6-8.7) 05/01/22 18:10 Albumin 4.0 g/dL (3.5-5.2) 05/01/22 18:10 Globulin 3.3 g/dL (1.3-4.6) 05/01/22 18:10 Discharge Plan Discharge Patient Disposition: Home Clinical Impression: Chest pain Condition: Stable Prescriptions: No Action colchicine 0.6 mg tablet 0.6 mg PO DAILY PRN (Reason: gout) Qty: 90 2RF metoprolol tartrate 25 mg tablet 37.5 mg PO BID Qty: 270 3RF indomethacin 75 mg capsule, extended release 75 mg PO BID PRN (Reason: pain) Qty: 14 2RF isosorbide mononitrate 30 mg tablet extended release 24 hr 30 mg PO DAILY Qty: 30 0RF carbidopa-levodopa 25-250 mg tablet 1.5 tab PO QID omeprazole 40 mg capsule,delayed release(DR/EC) 40 mg PO QAM aspirin [Adult Low Dose Aspirin] 81 mg tablet,delayed release (DR/EC) 81 mg PO QAM fluticasone propionate 50 mcg/actuation spray,suspension 1 spray intranasal BID Rx Instructions: administer into each nostril Discharge Orders: Discharge ED (Routine); Ordered 05/01/22 Ordered By: Heidi Abreu Referrals: Wali Moon MD [Primary Care Provider] - Discharge Diet: Advance as tolerated Discharge Activity: Resume usual activity Patient Instructions: Chest Pain (ED) Coding Level of Care Code ED Fraud Representative for Chg Fwd Exam Detailed Documented by User: Heidi Abreu MD 05/01/22 21:09 HPI - Chest Pain General: Chief Complaint: Chest Pain Stated Complaint: sent by heart dr Time Seen by Provider: 05/01/22 16:48 PFSH ED PFSH: Medical History Anxiety and depression CAD (coronary artery disease) Chronic right shoulder pain DDD (degenerative disc disease) Decreased glomerular filtration rate (GFR) Deformity of both feet Eustachian tube dysfunction GERD (gastroesophageal reflux disease) Gout Hearing loss Hypertension Migraines Osteoarthritis Parkinsons disease Pre-procedural examination Surgical History History of back surgery x6 different surgeries on the spine Family History Father Stroke Heart attack Brother Hypertension Sister Heart attack Social History Smoking and tobacco status: current every day smoker (chewing) smokeless tobacco Smokeless tobacco user: chewing tobacco Alcohol intake: former Desire information about alcohol rehabilitation?: No Desire information about substance/drug rehabilitation?: No Caregiver/support person: No Lives independently: Yes Household members: none Marital status: Single Highest education level completed: Some College, No Degree service: No Current occupational status: retired and disabled History of recent travel: Yes Current gender identity: Male Course Vital Signs: Vital signs: Vital Signs Temperature 97.0 F L 05/01/22 16:29 Pulse Rate 93 05/01/22 21:09 Respiratory Rate 14 05/01/22 21:09 Blood Pressure 129/88 05/01/22 21:09 Pulse Oximetry 95 05/01/22 21:09 Oxygen Delivery Me thod 05/01/22 20:17 MDM - Chest Pain Medical Decision Making Patient presents for chest pains atypical in nature his repeat troponin here is negative he has a cardiac cath scheduled in the morning he is to return then he stable for discharge. Lab Data : 05/01/22 18:10 05/01/22 18:10 Radiology Impressions Chest X-Ray 05/01/22 17:23
--- NOTE | 2022-05-01 17:23 | ECG_ITS ---
[facility] Test Date: 2022-05-01 Pat Name: Jude Burden Department: Room: Gender: Male Trans Router: : 1965 Requested By: Gavin Jon Order Number: [id number] Reading MD: Suleman Andrews Measurements Intervals [place] Rate: 96 P: 56 [place]: 161 QRS: 20 QRSD: 86 T: 68 QT: 348 QTc: 440 Interpretive Statements SINUS RHYTHM Compared to ECG 04/15/2022 23:25:25 Intraventricular conduction delay no longer present Electronically Signed On 05-01-2022 17:55:40 MANAGER OF CHANGE by Suleman Andrews [email or web address] [email or web address] branch [email or web address]/[id number] f
--- NOTE | 2022-05-01 17:23 | XRR_ITS ---
PROCEDURE INFORMATION: Exam: XR Chest Exam date and time: 05/01/2022 6:32 PM Age: 57 years old Clinical indication: Chest wall pain; Additional info: Chest pain TECHNIQUE: Imaging protocol: Radiologic exam of the chest. Views: 1 view. COMPARISON: CR (CHEST, ) 04/15/2022 9:59 PM FINDINGS: Lungs: Lungs are clear. Pleural spaces: There is no pleural effusion or pneumothorax. Heart/Mediastinum: Cardiomediastinal contours are unremarkable. Bones/joints: No acute fracture. Lower cervical fusion noted. XR/XR chest 1V portable [id number] IMPRESSION: No acute findings.
[2022-05-01] MEDS: acetaminophen 500 mg Tablet 1000 MG PO (17:41)
[2022-05-01] MEDS: aspirin 81 mg Chew Tablet 324 MG PO (17:42)
[2022-05-01] MEDS: isosorbide mononitrate ER 30 mg Tablet PO (17:45)
[2022-05-01 17:49] VITALS: BP 180/114; PULSE 92; RESP 16; O2SAT 94
[2022-05-01 18:19] LABS: Basophils # 0.1 10^3/uL (0.0-0.1); Basophils % 0.6 %; Eosinophils # 0.2 10^3/uL (0.0-0.8); Eosinophils % 2.4 %; Hematocrit 51.1 % (42.0-52.0); Hemoglobin 16.5 g/dL (11.7-16.6); Lymphocytes # 2.2 10^3/uL (0.8-4.8); Lymphocytes % 26.6 %; Mean Corpuscular HGB Conc 32.3 g/dL (30.0-36.0); Mean Corpuscular Hemoglobin 28.9 pg (28.0-34.0); Mean Corpuscular Volume 89.5 fl (80-94); Mean Platelet Volume 8.9 fL (7.4-10.4); Monocytes # 0.5 10^3/uL (0.2-0.9); Monocytes % 6.6 %; Neutrophils % 63.6 %; Nucleated Red Blood Cells % 0 %; Platelet Count 269 10^3/cmm (130-400); Red Blood Count 5.71 10^6/uL (4.1-5.3); Red Cell Distribution Width 13.6 % (12.1-15.1); White Blood Count 8.2 10^3/uL (4.0-10.0)
[2022-05-01 18:31] VITALS: BP 133/105; PULSE 87; RESP 14; O2SAT 94
[2022-05-01 18:35] LABS: Troponin(5th) Baseline 7 ng/L (0-15)
[2022-05-01 18:36] LABS: Alanine Aminotransferase < 5 U/L (0-41); Alkaline Phosphatase 72 U/L (40-130); Aspartate Amino Transferase 16 U/L (0-40); Blood Urea Nitrogen 8 mg/dL (6-20); Calcium 9.6 mg/dL (8.5-10.5); Carbon Dioxide 28 mmol/L (22-29); Chloride 103 mmol/L (98-107); Globulin 3.3 g/dL (1.3-4.6); Glomerular Filtration Rate 99.3 mL/min (90-130); Glucose 84 mg/dL (65-115); Osmolality Calculated 296 mOsm/kg (285-295); Sodium 144 mmol/L (136-145); Total Bilirubin 0.4 mg/dL (0.15-1.2); Total Protein 7.3 g/dL (6.6-8.7)
[2022-05-01 18:38] LABS: Anion Gap 16.8 (5-19); Potassium 3.8 mmol/L (3.5-5.1)
[2022-05-01 19:20] VITALS: BP 140/98; PULSE 88; RESP 18; O2SAT 94
[2022-05-01] MEDS: morphine 4 mg/mL SDV 1 mL IVP (20:04)
[2022-05-01 20:17] VITALS: BP 129/88; PULSE 88; RESP 16; O2SAT 94
[2022-05-01 20:58] LABS: Troponin 5 2HR 9.04 ng/L (0-15)
[2022-05-01 21:09] VITALS: BP 129/88; PULSE 93; RESP 14; O2SAT 95
[2022-05-01 21:10] LABS: Troponin 5 2HR Delta 2.04 ABS# (0-10)
== END 2022-05-01 21:30 | disposition home or self-care (01) ==
PROVIDERS: Family Medicine; Emergency Provider Emergency Medicine; PCP Family Medicine Adult Medicine
DX: R07.9 Chest pain, unspecified (principal); Z79.82 Long term (current) use of aspirin; F17.220 Nicotine dependence, chewing tobacco, uncomplicated; I25.10 Atherosclerotic heart disease of native coronary artery without angina pectoris; I10 Essential (primary) hypertension; G20 Parkinson's disease; R58 Hemorrhage, not elsewhere classified
CPT/HCPCS: 36415; 71045; 80048; 80053; 84484; 85025; 85610; 93005; 96374; 99285; J2270

== ENCOUNTER 2022-05-02 08:26 | Observation (INO) | payer MEDICARE, MEDICAID, SELFPAY ==
[2022-05-02] VITALS (42 sets, daily range): BP systolic 101–138; BP diastolic 65–101; PULSE 72–94; RESP 13–25; O2SAT 87–98; BMI 29.9
--- NOTE | 2022-05-02 06:00 | XACV_ITS ---
Wt: 82 kg BSA: 1.96 m2 Gender: Male : 1965 Accession #: $[id number] Any Known Allergies: Other Exam Priority: Routine Procedure(s): Procedure Description: Diagnostic procedure Procedure Description: Left Heart Catheterization Procedure Description: Coronary Angiography Rashad El MD; Diagnostic Cath Status: Elective Diagnostic Findings * INDICATION: 57-year-old man with past medical history of hypertension who had been having on and off chest discomfort episodes and had ER visits for that. Stress test showed prior infarct with krys-infarct ischemia in left circumflex artery territory. Plan for coronary angiogram with possible percutaneous coronary intervention today. * No disease noted in the Left Main, Left Anterior Descending, Right, or Circumflex coronary arteries. * Coronary angiography shows right dominance. Conclusions 1. No disease noted in the Left Main, Left Anterior Descending, Right, or Circumflex coronary arteries. 2. Normal left ventricular systolic function. Ejection fraction of 65%. Recommendations * Aggressive risk factor modification. * Outpatient cardiology follow up in 4 weeks. Interventional RX Recommendation: medical therapy and/or counseling Diagnostic RX Recommendation: medical therapy and/or counseling Ventriculography Ejection Fraction: 65.0 % Pressures Phase:Rest AO : 111 / 68 ( 86 ) @ 8:11:00 AM 113 / 58 ( 85 ) @ 8:11:00 AM LV : 128 / -3 / 13 @ 8:10:00 AM 126 / 0 / 16 @ 8:11:00 AM 125 / -1 / 15 @ 8:11:00 AM Valves Phase:DefaultPhase AV : 14.0 @ 8:18:14 AM AV Mean Gradient: 12.0 @ 8:18:14 AM Clinical Evaluation EBL: 5mL-10mL Procedural Details Procedure Consent Obtained. Admit Source: Out Patient. Pre-Procedure Time Out. Identified patient by full name and date of as verbalized by the patient/guarantor. Does the consent match the physician's order: Yes. Accurate & Complete Informed Consent: Yes. Inpatient/Outpatient History & Physical on Chart: Yes. If H&P is completed, is and addenduem needed: Yes; If yes, is the addendum complete: Yes. Visualize and Verify Site with Patient/Guarantor: N/A. Relevant Radiology Images available: N/A. The risks, benefits, and alternatives of sedation and/or procedure were discussed by physician. The patient agrees to continue. Procedure started. [facility] Clinical Fraility Score: 3: Managing Well. Blow Down Operator Indications: Worsening Angina. Chest Pain Symptom Assessment: Typical Angina Symptoms. Correct patient, site and procedure confirmed by cath team. PERRLA. Strong, equal hand store receiving specialist bilaterally. Lungs clear x 5 lobes. IV Site on Arrival: 20 gauge in the right anticubital. IV Fluids: 0.9% NaCl at KVO. 0 mL infused prior to open hearth laborer. Pre Procedural Pulses: bilateral dorsalis pedis was 3+. Pre Procedural Pulses: bilateral posterior tibial was 3+. Pre Procedural Pulses: bilateral radial was 3+. Current diagnosis: Chest Pain,Abnormal stress test. Oxygen started at 2liters/min via nasal canula. right groin was prepped with chloroprep then draped in the usual sterile fashion. Baseline sample Acquired. HR: 98 BPM. Physician notified. Physician arrived. Physician scrubbed in. Immediate Pre-Procedure Time Out. Correct Patient: Yes; Correct Procedure: Yes; Correct Site: Yes; Correct Patient Position: Yes; Correct Supplies: Yes; Dried Flammable Prep: No; Blood Products Available: No;. Lidocaine 1% infiltrated to the right groin. Arterial access obtained with micropuncture set. A 5 iranian JL4 catheter in over wire. Multiple views taken of left coronary artery. Catheter removed over the exchange wire. A 5 iranian JR4 catheter in over wire. Multiple views taken of right coronary artery. A 5 iranian Angled Pig catheter in over wire. EDP Sample taken: LV 128/-4,13; HR: 85 BPM; SpO2: 96%. LV gram performed in [place] @ 10 mL/second for a total of 30 mL. EDP Sample taken: LV 126/-1,16; HR: 86 BPM; SpO2: 96%. Pullback taken: LV 125/-2,15; AO 111/68(86); Mean: 12mmHg, Peak to Peak: 14mmHg, SEP: 17sec/min; HR: 86 BPM; SpO2: 96%. A Suture was successful obtaining hemostatsis at the Right Femoral artery insertion site. Sheath(s) sutured into position with 2-0 silk and sterile 4x4's and Op-site applied over the site. No oozing or signs and symptoms of hematoma noted. Post Procedure: Pulses reassessed and unchanged. PERRLA. Strong, equal hand store receiving specialist bilaterally. No VTE prophylaxis required. Medication's Wasted: Nitro = 50 mg. Medication's Wasted: Heparin = 4000 unit. Total IV fluids: 65 mL. Complications: None. Post-op diagnosis: Non-obstructive CAD. Estimated blood loss: 5mL-10mL. Responsiveness - Normal response to verbal stimuli; alert and oriented, PERRLA. Airway - Unaffected, no intervention required; spontaneous ventilation. Circulation: W/N/L, pulses unchanged. Nausea/Vomiting: N/A. Procedure completed. Patient transferred by bed to 1st floor. Vital chart was stopped. Catheter removed over the exchange wire. Access Site Site: Right Femoral artery Sheath Size: 6 Fr Hemostasis Method: Suture Hemostasis Success: Successful Procedure Medications Start: 7:48 AM Stop: 7:48 AM Medication: Versed Amount: 1 mg Route: I.V. Start: 7:52 AM Stop: 7:52 AM Medication: Fentanyl Amount: 50 mcg Route: I.V. Start: 7:55 AM Stop: 7:55 AM Medication: Versed Amount: 1 mg Route: I.V. Start: 8:06 AM Stop: 8:06 AM Medication: Fentanyl Amount: 50 mcg Route: I.V. I, the attending physician, have reviewed and verified all procedure medications. Yes, all medications given per verbal order History/Risk Factors Hypertension: Yes Dyslipidemia: No Peripheral Arterial Disease (PAD): No Myocardial Infarction (DE): No Obesity: No Renal Disease: No Tobacco Use: Current/Recent(w/in 1 year) Prior Interventions PCI: No CABG: No Valve Surgery: No Report Signatures Finalized by Rashad El MD on 05/10/2022 05:56 PM
[2022-05-02] MEDS: diphenhydrAMINE 50 mg Capsule PO (06:30)
--- NOTE | 2022-05-02 07:54 | W.PM.OPSFHP ---
Same Day Surgery H&P Indication for Procedure/HPI DATE OF PROCEDURE: May 02, 2022 CHIEF COMPLAINT/INDICATIONFOR SURGICAL PROCEDURE: Chest Pain/Abnormal stress test PREOP DIAGNOSIS: Chest pain/ abnormal stress test PLANNED PROCEDURE: Operation Date: 05/02/22 07:00 Proposed Procedures p Left Cardiac Catheterization 34573,R07.9.R06.00,I25.9,R94.39(Left) - Rashad El M.D Possible percutaneous coronary intervention 57-year-old man with past medical history of hypertension who had been having on and off chest discomfort episodes and had ER visits for that. Stress test showed prior ischemia with krys-infarct ischemia in left circumflex artery territory. Plan for coronary angiogram with possible percutaneous coronary intervention today Medications/Allergies* Home Medications Medication Instructions Recorded Confirmed Type aspirin 81 mg tablet,delayed 81 mg PO QAM 05/01/22 05/02/22 History release (Adult Low Dose Aspirin) carbidopa 25 mg-levodopa 250 mg 1.5 tab PO QID 05/01/22 05/02/22 History tablet fluticasone propionate 50 1 spray intranasal BID 05/01/22 05/02/22 History mcg/actuation nasal spray,suspension omeprazole 40 mg capsule,delayed 40 mg PO QAM 05/01/22 05/02/22 History release Allergies/Adverse Reactions Allergy/AdvReac Type Severity Reaction Status Date / Time allopurinol Allergy Unknown Unknown Verified 05/01/22 16:51 ketorolac [From Toradol] Allergy Unknown Unknown Verified 05/01/22 16:51 orphenadrine [From Norflex] Allergy Unknown Unknown Verified 05/01/22 16:51 promethazine [From Phenergan] Allergy Unknown Unknown Verified 05/01/22 16:51 tramadol Allergy Unknown Unknown Verified 05/01/22 16:51 methadone Allergy Unknown Verified 05/01/22 16:52 oxycodone Allergy Unknown Verified 05/01/22 16:52 narcotics Allergy Severe Unknown Uncoded 05/01/22 07:26 Current Medications: Generic Name Dose Route Start Last Admin Trade Name Freq PRN Reason Stop Dose Admin Sodium Chloride 1,000 mls @ 50 mls/hr 05/02/22 06:00 05/02/22 06:55 Sodium Chloride 0.9% IV 05/03/22 01:59 Not Given .Q20H ONE Pertinent History/Comorbid Conditions* Medical History (Updated 05/01/22 @ 21:01 by Heidi Abreu MD) Anxiety and depression CAD (coronary artery disease) Chronic right shoulder pain DDD (degenerative disc disease) Decreased glomerular filtration rate (GFR) Deformity of both feet Eustachian tube dysfunction GERD (gastroesophageal reflux disease) Gout Hearing loss Hypertension Migraines Osteoarthritis Parkinsons disease Pre-procedural examination Surgical History (Updated 02/06/22 @ 14:02 by Wali Moon MD) History of back surgery x6 different surgeries on the spine Family History (Updated 01/08/22 @ 12:47 by Ana Mendez RN) Heart attack Father Sister Hypertension Brother Stroke Father Social History Smoking and tobacco status: current every day smoker (chewing) smokeless tobacco Smokeless tobacco user: chewing tobacco Alcohol intake: former Desire information about alcohol rehabilitation?: No Desire information about substance/drug rehabilitation?: No Caregiver/support person: No Lives independently: Yes Household members: none Marital status: Single Highest education level completed: Some College, No Degree service: No Current occupational status: retired and disabled History of recent travel: Yes Current gender identity: Male Pertinent Exam Findings alert, oriented x 3, clear to auscultation bilaterally and regular rate & rhythm Recommendations Surgery/Procedure today (Left heart cath with possible percutaneous coronary intervention) Coding Level of Care Code Acute Recreational Director for Mu Pressley
[2022-05-02] MEDS: morphine 4 mg/mL SDV 1 mL 2 MG IVP (10:24)
--- NOTE | 2022-05-02 11:20 | PC.NURSE ---
received from cardiac ship laborer at 0825 via bed.report received.pt is drowsy but easily awakened.sr on monitor.right femoral arterial line intact to pressurized system.right femoral drsg is dry and intact.no hematoma noted.right leg is warm to touch and with brisk capillary refill.palpable dp pulse noted.pt instructed in activity restrictions s/p femoral artery procedure..and instructed to notify staff for any bleeding,pain,numbness..or for any concerns at all.pt verb understanding of instructions.
--- NOTE | 2022-05-02 11:28 | PC.NURSE ---
arterial sheath pulled at 1000.manual pressure held x 20 min.pt required 2 mg mso4 x 1 for pain..which managed pain.no hematoma formation noted.site dressed with 2x2 gauze and secured with biocclusive drsg.right leg remains warm to touch and with brisk capillary refill.palpable dp pulse noted.pt instructed in activity restrictions s/p femoral artery sheath pull and instructed to notify staff for any bleeding ,pain,numbness or for any concerns at all.pt verb understanding of instructions
--- NOTE | 2022-05-02 17:22 | PC.NURSE ---
pt ambulated in forte.tolerated well.bp stable.no hematoma formation in right groin area noted.discharge prepared..and pt has requested that he stay overnight..has no support at home..and does not feel comfortable going home.dr coffman notified.
--- NOTE | 2022-05-02 18:41 | PC.NURSE ---
pt now decided to go home.dr coffman notified.pt states he has found someone to stay night tonight.discharge instructions given and explained.pt verb understanding of instructions.discharged via w/c to exit at 1830.friend to drive pt home
== END 2022-05-02 18:44 | disposition home or self-care (01) ==
LOC: CSU 08:26
PROVIDERS: Admitting Provider Internal Medicine; PCP Family Medicine Adult Medicine; Visit Provider Internal Medicine
DX: R94.39 Abnormal result of other cardiovascular function study (principal); I25.9 Chronic ischemic heart disease, unspecified; R07.89 Other chest pain; Z79.82 Long term (current) use of aspirin; K21.9 Gastro-esophageal reflux disease without esophagitis; I10 Essential (primary) hypertension; M19.90 Unspecified osteoarthritis, unspecified site; G20 Parkinson's disease; F17.220 Nicotine dependence, chewing tobacco, uncomplicated
CPT/HCPCS: 36415; 93458; 96360; 99152; 99153; C1769; C1887; C1894; G0378; J1644; J2250; J2270; J3010; J3490; J7030; Q0163; Q9967

== ENCOUNTER → 2022-05-21 14:37 | Outpatient (BNVA) | payer MEDICARE, MEDICAID, SELFPAY | PROVIDERS: PCP Family Medicine Adult Medicine; Visit Provider Nurse Practitioner Family | DX: I10 Essential (primary) hypertension (principal); I25.10 Atherosclerotic heart disease of native coronary artery without angina pectoris; F17.220 Nicotine dependence, chewing tobacco, uncomplicated | CPT/HCPCS: 99214 ==

== ENCOUNTER → 2022-05-28 13:00 | Outpatient (BNVA) | payer MEDICARE, MEDICAID, SELFPAY | PROVIDERS: PCP Family Medicine Adult Medicine; Visit Provider Podiatrist Foot & Ankle Surgery | DX: M77.41 Metatarsalgia, right foot (principal); M77.42 Metatarsalgia, left foot; Q66.221 Congenital metatarsus adductus, right foot; Q66.222 Congenital metatarsus adductus, left foot; M10.9 Gout, unspecified | CPT/HCPCS: 99213 ==

== ENCOUNTER 2022-06-04 06:03 | Emergency (ER) | payer MEDICARE, MEDICAID, SELFPAY ==
[2022-06-04 06:07] VITALS: BP 118/92; PULSE 81; RESP 17; TEMP 37.5; O2SAT 91; BMI 30.7
--- NOTE | 2022-06-04 06:11 | ED_ITS ---
HPI - General Adult General: Chief complaint: Extremity Problem,Nontraumatic Stated complaint: left arm pain Time Seen by Provider: 06/04/22 06:10 Source: patient Mode of arrival: EMS History of Present Illness: 49-year-old male presents emergency room complaining of left arm pain and swelling begins at the elbow and extends dist ally. Began 2 days ago when initially beginning took 2 colchicine. He has a history of gout. After taking the colchicine he had diarrhea and nausea and vomiting pain in his elbow actually worsened. He continues to take Tylenol after the progressively worsened spread distally from the elbow to the fingertips. There is significant mount of swelling in the hand. Patient states he is also had a fever. He is sweating where his arm is resting against his abdomen and he has soaked his clothing in that area. On arrival here he is a low-grade fever. He additionally started to have sats at 88-89% on room air when he first arrived he states that his chronic. They are unsure what the cause is he says he does not smoke. He is not on any inhaled medications. He is not on chronic oxygen. His oxygen saturation pattern shows a similar readings with previous visits. Interesting to note that in March of this year he had a stress test that was positive. He had return to the ER complaining of chest pain the night before he is scheduled for angiography. Ultimately he decided he preferred to go home and return for the angiography in the morning. He did return the following day for the angiography and he had normal coronary arteries. Onset (ago): day(s) (2) Location: upper extremity (Left forearm swelling) Radiation: extremity Severity: severe Quality: sharp Pain Consistency: constant Relieving factors: immobilization and rest Exacerbating factors: movement and other (Palpation) Associated symptoms: Reports fevers/chills; Deny chest pain, confusion, cough, diaphoresis, decreased appetite, dyspnea, headache(s), malaise, nausea, rash, palpitations, seizures, short of breath, syncope, vomiting or weakness Treatments prior to arrival: other (Colchicine, Tylenol) Review of Systems Const: Reports: fever(s) and chills; Denies: malaise or diaphoresis ENMT: Denies: throat pain, ear or mastoid pain, nasal discharge or nasal congestion Card: Denies: chest pain, palpitations or syncope Resp: Denies: dyspnea GI: Reports: abdominal pain (After taking colchicine resolved now) and diarrhea (After taking colchicine resolved now); Denies: nausea or vomiting : Denies: flank pain, dysuria, urinary frequency or urinary urgency Skin/Breast: Denies: rash Neuro: Denies: headache(s) or confusion PFSH ED PFSH: Medical History Anxiety and depression CAD (coronary artery disease) Chronic right shoulder pain DDD (degenerative disc disease) Decreased glomerular filtration rate (GFR) Deformity of both feet Eustachian tube dysfunction GERD (gastroesophageal reflux disease) Gout Hearing loss Hypertension Migraines Osteoarthritis Parkinsons disease Pre-procedural examination Surgical History History of back surgery x6 different surgeries on the spine Family History Father Stroke Heart attack Brother Hypertension Sister Heart attack Social History Smoking and tobacco status: current every day smoker (chewing) smokeless tobacco Smokeless tobacco user: chewing tobacco Alcohol intake: former Desire information about alcohol rehabilitation?: No Desire information about substance/drug rehabilitation?: No Caregiver/support person: No Lives independently: Yes Household members: none Marital status: Single Highest education level completed: Some College, No Degree service: No Current occupational status: retired and disabled History of recent travel: Yes Current gender identity: Male Physical Exam Const: COMMON NORMALS: no acute distress GENERAL APPEARANCE: cooperative and comfortable ORIENTATION/CONSCIOUSNESS: Yes awake, Yes oriented to person, Yes oriented to place and Yes oriented to time HENMT: COMMON NORMALS: normocephalic, atraumatic and hearing grossly normal bilaterally HEAD & SCALP: normocephalic and atraumatic Lymph: LYMPHATIC: no lymphadenopathy noted Resp: COMMON NORMALS: normal respiratory effort, No retractions, No use of accessory muscles and clear to auscultation bilaterally AUSCULTATION: clear to auscultation bilaterally Cardio: COMMON NORMALS: regular rate, regular rhythm and No murmurs present (Cardio) RATE: regular rate RHYTHM: regular rhythm GI: COMMON NORMALS: Soft to palpation and No hepatosplenomegaly present AUSCULTATION: Yes normoactive bowel sounds PALPATION: Yes Soft to palpation, No Tenderness to palpation present (GI), No Guarding due to palpation present (GI) and Yes No hepatosplenomegaly present Extremity: OTHER: Swelling left upper upper extremity involving the forearm from the elbow distally. There is mild erythema there is no lacerations or abrasions there is a very small dry eschar over the lateral epicondyle but does not appear to be a nidus of infection. Has severe pain with any palpation or movement in the elbow wrist or fingers. He is able to move his fingers his sensation distally is intact radial and ulnar pulses are intact there is no epitrochlear or axillary lymph nodes present. Neuro: SENSORIUM/ORIENTATION: Yes oriented to person, Yes oriented to place and Yes oriented to time Skin: COMMON NORMALS: no rashes or lesions noted GENERAL SKIN EXAM: no r ashes or lesions noted Course Vital Signs: Vital signs: Vital Signs Temperature 99.5 F 06/04/22 06:07 Pulse Rate 78 06/04/22 08:33 Respiratory Rate 14 06/04/22 07:30 Blood Pressure 140/93 06/04/22 08:33 Pulse Oximetry 93 06/04/22 08:33 Oxygen Delivery Me thod 06/04/22 07:30 Oxygen Flow Rate 1 06/04/22 07:30 MDM - General Adult Medical Decision Making Significant amount of localized edema left hand to the mid hardy portion of the forearm. Patient is noticeable pain with passive range of motion at the wrist or and the elbow. No epitrochlear nodes no axillary nodes there is some lymphangitic streaking. He is not particularly tender with light touch that is typically seen with gout. I recommended to the patient that we place him on observation. He does not want to stay he prefer to leave. He took colchicine early in the course of this which precipitated GI symptoms but he had no resolution of his pain there is a fairly good sized joint effusion on the x-ray. Ultimately patient insisted on going home discharged home refill the prescription for indomethacin. Also start him on oral antibiotic. Blood cultures have been drawn encourage the patient to have follow-up tomorrow with his primary care to be reevaluated. Medical Records I reviewed the patient's medical records. Lab Data I reviewed the patient's lab results. 06/04/22 06:42 06/04/22 06:42 Radiology Impressions Chest X-Ray 06/04/22 06:12 IMPRESSION: No acute cardiopulmonary abnormality identified. Elbow X-Ray 06/04/22 06:13 IMPRESSION: Arthritic changes with joint effusion noted. Laboratory Results WBC 14.9 10^3/uL (4.0-10.0) H 06/04/22 06:42 RBC 5.21 10^6/uL (4.1-5.3) 06/04/22 06:42 Hgb 15.2 g/dL (11.7-16.6) 06/04/22 06:42 Hct 47.2 % (42.0-52.0) 06/04/22 06:42 MCV 90.6 fl (80-94) 06/04/22 06:42 MCH 29.2 pg (28.0-34.0) 06/04/22 06:42 MCHC 32.2 g/dL (30.0-36.0) 06/04/22 06:42 RDW 13.5 % (12.1-15.1) 06/04/22 06:42 Plt Count 255 10^3/cmm (130-400) 06/04/22 06:42 MPV 9.0 fL (7.4-10.4) 06/04/22 06:42 Neut % (Auto) 81.1 % 06/04/22 06:42 Lymph % (Auto) 9.1 % 06/04/22 06:42 [place] % (Auto) 8.2 % 06/04/22 06:42 Eos % (Auto) 0.7 % 06/04/22 06:42 Baso % (Auto) 0.3 % 06/04/22 06:42 Neut # (Auto) 12.11 10^3/uL (1.8-7.7) H 06/04/22 06:42 Lymph # (Auto) 1.4 10^3/uL (0.8-4.8) 06/04/22 06:42 [place] # (Auto) 1.2 10^3/uL (0.2-0.9) H 06/04/22 06:42 Eos # (Auto) 0.1 10^3/uL (0.0-0.8) 06/04/22 06:42 Baso # (Auto) 0.0 10^3/uL (0.0-0.1) 06/04/22 06:42 Nucleated RBC % (auto) 0 % 06/04/22 06:42 Nucleated RBCs # 0.0 /100WBC 06/04/22 06:42 Sodium 137 mmol/L (136-145) 06/04/22 06:42 Potassium 3.1 mmol/L (3.5-5.1) L 06/04/22 06:42 Chloride 97 mmol/L (98-107) L 06/04/22 06:42 Carbon Dioxide 25 mmol/L (22-29) 06/04/22 06:42 Anion Gap 18.1 (5-19) 06/04/22 06:42 BUN 12 mg/dL (6-20) 06/04/22 06:42 Creatinine 0.8 mg/dL (0.7-1.2) 06/04/22 06:42 GFR Calculation 99.3 mL/min (90-130) 06/04/22 06:42 Glucose 126 mg/dL (65-115) H 06/04/22 06:42 Calculated Osmolality 285 mOsm/kg (285-295) 06/04/22 06:42 Calcium 9.2 mg/dL (8.5-10.5) 06/04/22 06:42 Total Bilirubin 0.8 mg/dL (0.15-1.2) 06/04/22 06:42 AST 10 U/L (0-40) 06/04/22 06:42 ALT < 5 U/L (0-41) 06/04/22 06:42 Alkaline Phosphatase 68 U/L (40-130) 06/04/22 06:42 Total Protein 6.6 g/dL (6.6-8.7) 06/04/22 06:42 Albumin 3.7 g/dL (3.5-5.2) 06/04/22 06:42 Globulin 2.9 g/dL (1.3-4.6) 06/04/22 06:42 EKG Data EKG 1: EKG interpretation date: 06/04/22 EKG interpretation time: : Interpretation: Normal sinus rhythm no acute ST changes rate of 73 normal MA interval Computer generated interpretation: Chest X-Ray 06/04/22 06:12 IMPRESSION: No acute cardiopulmonary abnormality identified. Elbow X-Ray 06/04/22 06:13 IMPRESSION: Arthritic changes with joint effusion noted. Discharge Plan Discharge Patient Disposition: Home Clinical Impression: Cellulitis, Arthralgia Condition: Stable Prescriptions: New indomethacin 75 mg capsule, extended release 75 mg PO BID Qty: 20 0RF levofloxacin 750 mg tablet 750 mg PO DAILY 10 Days Qty: 10 0RF No Action colchicine 0.6 mg tablet 0.6 mg PO DAILY PRN (Reason: gout) Qty: 90 2RF metoprolol tartrate 50 mg tablet 50 mg PO BID Qty: 60 3RF carbidopa-levodopa 25-250 mg tablet See Rx Instructions .ROUTE .COMPLEX Rx Instructions: 1 to 1.5 tab po @00:00,1 tab po @06:00,1 to 1.5 tab po @12:00, and 1 tab po 18:00 omeprazole 40 mg capsule,delayed release(DR/EC) 40 mg PO QAM aspirin [Adult Low Dose Aspirin] 81 mg tablet,delayed release (DR/EC) 81 mg PO QAM Tylenol Ex Str Rapid Release 500 mg Tablet 1,000 mg PO Q12H Discharge Orders: Discharge ED (Routine); Ordered 06/04/22 Ordered By: Gavin Blackman Referrals: Wali Moon MD [Primary Care Provider] - Discharge Diet: Usual diet Discharge Activity: Resume usual activity Patient Instructions: Opioid Safety, Pain Management Activity Restrictions/Additional Instructions: You were seen this morning for left forearm and wrist pain. I suspect you have a cellulitis. I recommended that we put you on observation. You declined stating he wanted to go home. You are given a dose of steroids in the emergency room. Recommend that you use the indomethacin 50 mg 1 tablet every 8 hours until pain improves.. You should also start the oral antibiotics. Would recommend that you follow-up with your primary care provider tomorrow. Coding Level of Care Code ED Chronometer Assembler And Adjuster for Mu Fwd Exam Detailed
--- NOTE | 2022-06-04 06:12 | XRR_ITS ---
PROCEDURE INFORMATION: Exam: XR Chest Exam date and time: 06/04/2022 6:39 AM Age: 57 years old Clinical indication: Cough and shortness of breath; Additional info: Dyspnea/cough TECHNIQUE: Imaging protocol: Radiologic exam of the chest. Views: 1 view. COMPARISON: CR XR chest 1V portable [id number] 05/01/2022 6:32 PM FINDINGS: Lungs: The lung parenchyma is clear. Pleural spaces: No pneumothorax. No pleural effusion. Heart/Mediastinum: The cardiomediastinal silhouette is within normal limits. Bones/joints: Cervical spinal fixation hardware noted. XR/XR chest 1V portable [id number] IMPRESSION: No acute cardiopulmonary abnormality identified.
--- NOTE | 2022-06-04 06:12 | ECG_ITS ---
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1965 Requested By: Gavin Jon Order Number: [id number] Reading MD: Suleman Andrews Measurements Intervals [place] Rate: 73 P: 51 WV: 148 QRS: -1 QRSD: 100 T: 19 QT: 402 QTc: 445 Interpretive Statements SINUS RHYTHM MINIMAL VOLTAGE CRITERIA FOR LVH, CONSIDER NORMAL VARIANT [MEETS CRITERIA IN ONE OF: R(aVL), S(V1), R(V5), R(V5/V6)+S(V1)] Compared to ECG 05/01/2022 16:31:56 No significant changes Electronically Signed On 06-04-2022 8:05:29 INFANTRY INDIRECT FIRE CREWMEMBER by Suleman Andrews [email or web address]
--- NOTE | 2022-06-04 06:13 | XRR_ITS ---
PROCEDURE INFORMATION: Exam: XR Left Elbow Exam date and time: 06/04/2022 6:39 AM Age: 57 years old Clinical indication: Pain; Swelling; Elbow; Left TECHNIQUE: Imaging protocol: Radiologic exam of the Left elbow. Views: 3 or more views. COMPARISON: No relevant prior studies available. FINDINGS: Bones/joints: Joint space narrowing with osteophytic lipping noted. Chronic dystrophic calcifications along the margins of the elbow joint. No acute fracture or dislocation identified. Soft tissues: Joint effusion noted. XR/XR elbow LT min 3V* [id number] IMPRESSION: Arthritic changes with joint effusion noted.
[2022-06-04 06:45] VITALS: BP 118/92; PULSE 71; RESP 16; O2SAT 97
[2022-06-04 06:58] LABS: Basophils % 0.3 %; Eosinophils # 0.1 10^3/uL (0.0-0.8); Eosinophils % 0.7 %; Hematocrit 47.2 % (42.0-52.0); Hemoglobin 15.2 g/dL (11.7-16.6); Lymphocytes # 1.4 10^3/uL (0.8-4.8); Lymphocytes % 9.1 %; Mean Corpuscular HGB Conc 32.2 g/dL (30.0-36.0); Mean Corpuscular Hemoglobin 29.2 pg (28.0-34.0); Mean Corpuscular Volume 90.6 fl (80-94); Monocytes # 1.2 10^3/uL (0.2-0.9); Monocytes % 8.2 %; Neutrophils # 12.11 10^3/uL (1.8-7.7); Neutrophils % 81.1 %; Nucleated Red Blood Cells % 0 %; Platelet Count 255 10^3/cmm (130-400); Red Blood Count 5.21 10^6/uL (4.1-5.3); Red Cell Distribution Width 13.5 % (12.1-15.1); White Blood Count 14.9 10^3/uL (4.0-10.0)
[2022-06-04] MEDS: ondansetron 2 mg/ML SDV 2 mL 4 MG IVP (07:13)
[2022-06-04] MEDS: diphenhydrAMINE 50 mg/mL SDV 1mL IVP (07:14)
[2022-06-04 07:15] LABS: Alanine Aminotransferase < 5 U/L (0-41); Albumin Level 3.7 g/dL (3.5-5.2); Alkaline Phosphatase 68 U/L (40-130); Anion Gap 18.1 (5-19); Aspartate Amino Transferase 10 U/L (0-40); Blood Urea Nitrogen 12 mg/dL (6-20); Calcium 9.2 mg/dL (8.5-10.5); Carbon Dioxide 25 mmol/L (22-29); Chloride 97 mmol/L (98-107); Globulin 2.9 g/dL (1.3-4.6); Glomerular Filtration Rate 99.3 mL/min (90-130); Glucose 126 mg/dL (65-115); Osmolality Calculated 285 mOsm/kg (285-295); Potassium 3.1 mmol/L (3.5-5.1); Sodium 137 mmol/L (136-145); Total Bilirubin 0.8 mg/dL (0.15-1.2); Total Protein 6.6 g/dL (6.6-8.7)
[2022-06-04 07:16] VITALS: RESP 17; O2SAT 96
[2022-06-04] MEDS: morphine 4 mg/mL SDV 1 mL 2 MG IVP (07:16)
[2022-06-04 07:21] VITALS: BP 140/93; PULSE 67; O2SAT 95
[2022-06-04 07:30] VITALS: BP 140/93; PULSE 74; RESP 14; O2SAT 92
[2022-06-04 08:33] VITALS: BP 140/93; PULSE 78; O2SAT 93
== END 2022-06-04 08:30 | disposition home or self-care (01) ==
PROVIDERS: Emergency Provider Family Medicine; PCP Family Medicine Adult Medicine
DX: M79.602 Pain in left arm (principal); L03.114 Cellulitis of left upper limb; M25.50 Pain in unspecified joint
CPT/HCPCS: 71045; 73080; 80053; 85025; 87040; 93005; 96374; 96375; 99284; J1200; J2270; J2405; J2930

== ENCOUNTER 2022-06-13 00:56 | Emergency (ER) | payer MEDICARE, MEDICAID, SELFPAY ==
--- NOTE | 2022-06-13 01:01 | XRR_ITS ---
PROCEDURE INFORMATION: Exam: XR Chest Exam date and time: 06/13/2022 1:19 AM Age: 57 years old Clinical indication: Chest pressure; Patient HX: Chest pain; Additional info: Cp TECHNIQUE: Imaging protocol: Radiologic exam of the chest. Views: 1 view. COMPARISON: CR XR chest 1V portable [id number] 06/04/2022 6:39 AM FINDINGS: Lungs: Unremarkable. No consolidation. Pleural spaces: Unremarkable. No pleural effusion. No pneumothorax. Heart/Mediastinum: Unremarkable. No cardiomegaly. Bones/joints: Partially assessed lower cervical fusion. XR/XR chest 1V portable [id number] IMPRESSION: No acute findings.
[2022-06-13 01:04] VITALS: BP 147/107; PULSE 88; RESP 22; TEMP 36.7; O2SAT 98; BMI 30.3
--- NOTE | 2022-06-13 01:09 | W.ED.SYNCOPE ---
HPI - Syncope General: Chief Complaint: Syncope Stated Complaint: SYNCOPAL Time Seen by Provider: 06/13/22 01:00 Source: patient and EMS Mode of arrival: EMS Limitations: no limitations History of Present Illness: 57-year-old male who is well-known to ER states that tonight he was feeling weak and dizzy states he had a syncopal event. States it was just 1 event he denies any pain before or after denies any chest pain denies any headache states he feels improved currently. Associated symptoms: Deny abdominal pain, fever(s), headache(s) or nausea Review of Systems Const: Denies: fever(s), chills, body aches or change in appetite Eyes: Denies: blurry vision or eye discomfort ENMT: Denies: throat pain or dental pain Card: Reports: syncope Resp: Denies: dyspnea GI: Denies: abdominal pain, nausea, vomiting or diarrhea : Denies: dysuria Musc: Denies: neck pain or back pain Skin/Breast: Denies: rash Neuro: Denies: headache(s) Psych: Denies: depression [place]/Lymph: Denies: easy bruising All/Imm: Denies: urticaria PFSH ED PFSH: Medical History Anxiety and depression CAD (coronary artery disease) Chronic right shoulder pain DDD (degenerative disc disease) Decreased glomerular filtration rate (GFR) Deformity of both feet Eustachian tube dysfunction GERD (gastroesophageal reflux disease) Gout Hearing loss Hospital discharge follow-up Hypertension Migraines Osteoarthritis Parkinsons disease Pre-procedural examination Surgical History History of back surgery x6 different surgeries on the spine Family History Father Stroke Heart attack Brother Hypertension Sister Heart attack Social History Smoking and tobacco status: current every day smoker (chewing) smokeless tobacco Smokeless tobacco user: chewing tobacco Alcohol intake: former Desire information about alcohol rehabilitation?: No Desire information about substance/drug rehabilitation?: No Caregiver/support person: No Lives independently: Yes Household members: none Marital status: Single Highest education level completed: Some College, No Degree service: No Current occupational status: retired and disabled History of recent travel: Yes Current gender identity: Male Course Vital Signs: Vital signs: Vital Signs Temperature 98.0 F 06/13/22 01:04 Pulse Rate 88 06/13/22 01:04 Respiratory Rate 22 H 06/13/22 01:04 Blood Pressure 147/107 06/13/22 01:04 Pulse Oximetry 98 06/13/22 01:04 Oxygen Delivery Me thod 06/13/22 01:04 MDM - Syncope Medical Decision Making Patient presents here with a syncopal event he is well-appearing here blood works normal troponins normal he feels well here he stable for discharge he is to follow-up with PCP and return if worsening. Lab Data 06/13/22 01:24 06/13/22 01:24 Radiology Impressions Chest X-Ray 06/13/22 01:01 IMPRESSION: No acute findings. Laboratory Results WBC 7.8 10^3/uL (4.0-10.0) 06/13/22 01:24 RBC 5.56 10^6/uL (4.1-5.3) H 06/13/22 01:24 Hgb 16.0 g/dL (11.7-16.6) 06/13/22 01:24 Hct 50.5 % (42.0-52.0) 06/13/22 01:24 MCV 90.8 fl (80-94) 06/13/22 01:24 MCH 28.8 pg (28.0-34.0) 06/13/22 01:24 MCHC 31.7 g/dL (30.0-36.0) 06/13/22 01:24 RDW 13.5 % (12.1-15.1) 06/13/22 01:24 Plt Count 293 10^3/cmm (130-400) 06/13/22 01:24 MPV 9.1 fL (7.4-10.4) 06/13/22 01:24 Neut % (Auto) 64.2 % 06/13/22 01:24 Lymph % (Auto) 26.1 % 06/13/22 01:24 [place] % (Auto) 7.7 % 06/13/22 01:24 Eos % (Auto) 1.3 % 06/13/22 01:24 Baso % (Auto) 0.1 % 06/13/22 01:24 Neut # (Auto) 5.03 10^3/uL (1.8-7.7) 06/13/22 01:24 Lymph # (Auto) 2.0 10^3/uL (0.8-4.8) 06/13/22 01:24 [place] # (Auto) 0.6 10^3/uL (0.2-0.9) 06/13/22 01:24 Eos # (Auto) 0.1 10^3/uL (0.0-0.8) 06/13/22 01:24 Baso # (Auto) 0.0 10^3/uL (0.0-0.1) 06/13/22 01:24 Nucleated RBC % (auto) 0 % 06/13/22 01:24 Nucleated RBCs # 0.0 /100WBC 06/13/22 01:24 Sodium 134 mmol/L (136-145) L 06/13/22 01:24 Potassium 3.3 mmol/L (3.5-5.1) L 06/13/22 01:24 Chloride 96 mmol/L (98-107) L 06/13/22 01:24 Carbon Dioxide 25 mmol/L (22-29) 06/13/22 01:24 Anion Gap 16.3 (5-19) 06/13/22 01:24 BUN 23 mg/dL (6-20) H 06/13/22 01:24 Creatinine 1.0 mg/dL (0.7-1.2) 06/13/22 01:24 GFR Calculation 76.7 mL/min (90-130) L 06/13/22 01:24 Glucose 113 mg/dL (65-115) 06/13/22 01:24 Calculated Osmolality 282 mOsm/kg (285-295) L 06/13/22 01:24 Calcium 9.4 mg/dL (8.5-10.5) 06/13/22 01:24 Total Bilirubin 0.4 mg/dL (0.15-1.2) 06/13/22 01:24 AST 13 U/L (0-40) 06/13/22 01:24 ALT < 5 U/L (0-41) 06/13/22 01:24 Alkaline Phosphatase 74 U/L (40-130) 06/13/22 01:24 Troponin T Baseline 9 ng/L (0-15) 06/13/22 01:24 Total Protein 7.8 g/dL (6.6-8.7) 06/13/22 01:24 Albumin 3.7 g/dL (3.5-5.2) 06/13/22 01:24 Globulin 4.1 g/dL (1.3-4.6) 06/13/22 01:24 EKG Data EKG 1: I personally reviewed and interpreted this EKG as follows: EKG interpretation date: 06/13/22 EKG interpretation time: 01:10 Interpretation: nsr hr [address] or t wave abnormalities qrs 95 qtc 423 Discharge Plan Discharge Patient Disposition: Home Clinical Impression: Syncope Condition: Stable Prescriptions: No Action metoprolol tartrate 50 mg tablet 50 mg PO BID Qty: 60 3RF carbidopa-levodopa 25-250 mg tablet See Rx Instructions .ROUTE .COMPLEX Qty: 180 5RF Rx Instructions: 1 to 1.5 tab po @00:00,1 tab po @06:00,1 to 1.5 tab po @12:00, and 1 tab po 18:00 colchicine 0.6 mg tablet 0.6 mg PO DAILY PRN (Reason: gout) Qty: 90 2RF indomethacin 75 mg capsule, extended release 75 mg PO BID PRN (Reason: Gout/arthritis attacks) Qty: 30 5RF Rx Instructions: Take for 10 to 15 days at a time for arthritic episodes omeprazole 40 mg capsule,delayed release(DR/EC) 40 mg PO QAM Qty: 90 1RF levofloxacin 750 mg tablet 750 mg PO DAILY 10 Days Qty: 10 0RF aspirin [Adult Low Dose Aspirin] 81 mg tablet,delayed release (DR/EC) 81 mg PO QAM Tylenol Ex Str Rapid Release 500 mg Tablet 1,000 mg PO Q12H Discharge Orders: Discharge ED (Routine); Ordered 06/13/22 Ordered By: Heidi Abreu Referrals: Wali Moon MD [Primary Care Provider] - 1-3 days Discharge Diet: Advance as tolerated Discharge Activity: Resume usual activity Patient Instructions: Syncope (ED) Coding Level of Care Code ED Home Economics Extension Worker for Mu Pressley
--- NOTE | 2022-06-13 01:10 | ECG_ITS ---
[facility] Test Date: 2022-06-13 Pat Name: Jude Burden Department: Room: Gender: Male Attendance Officer: : 1965 Requested By: Heidi Abreu Order Number: [id number] Isabel MD: Miguelina Gupta M.D. Measurements Intervals [place] Rate: 82 P: 58 AK: 173 QRS: 5 QRSD: 95 T: 37 QT: 384 QTc: 451 Interpretive Statements SINUS RHYTHM Compared to ECG 06/04/2022 06:22:21 No significant changes Electronically Signed On 06-13-2022 12:51:28 REGIONAL RETAIL SALES MANAGER by Miguelina Gupta M.D. [id number]
[2022-06-13] MEDS: acetaminophen 500 mg Tablet 1000 MG PO (01:30)
[2022-06-13 01:40] LABS: Basophils % 0.1 %; Eosinophils # 0.1 10^3/uL (0.0-0.8); Eosinophils % 1.3 %; Hematocrit 50.5 % (42.0-52.0); Lymphocytes % 26.1 %; Mean Corpuscular HGB Conc 31.7 g/dL (30.0-36.0); Mean Corpuscular Hemoglobin 28.8 pg (28.0-34.0); Mean Corpuscular Volume 90.8 fl (80-94); Mean Platelet Volume 9.1 fL (7.4-10.4); Monocytes # 0.6 10^3/uL (0.2-0.9); Monocytes % 7.7 %; Neutrophils # 5.03 10^3/uL (1.8-7.7); Neutrophils % 64.2 %; Nucleated Red Blood Cells % 0 %; Platelet Count 293 10^3/cmm (130-400); Red Blood Count 5.56 10^6/uL (4.1-5.3); Red Cell Distribution Width 13.5 % (12.1-15.1); White Blood Count 7.8 10^3/uL (4.0-10.0)
[2022-06-13 01:56] LABS: Alanine Aminotransferase < 5 U/L (0-41); Albumin Level 3.7 g/dL (3.5-5.2); Alkaline Phosphatase 74 U/L (40-130); Aspartate Amino Transferase 13 U/L (0-40); Blood Urea Nitrogen 23 mg/dL (6-20); Calcium 9.4 mg/dL (8.5-10.5); Carbon Dioxide 25 mmol/L (22-29); Chloride 96 mmol/L (98-107); Globulin 4.1 g/dL (1.3-4.6); Glomerular Filtration Rate 76.7 mL/min (90-130); Glucose 113 mg/dL (65-115); Osmolality Calculated 282 mOsm/kg (285-295); Sodium 134 mmol/L (136-145); Total Bilirubin 0.4 mg/dL (0.15-1.2); Total Protein 7.8 g/dL (6.6-8.7)
[2022-06-13 01:57] LABS: Troponin(5th) Baseline 9 ng/L (0-15)
[2022-06-13 01:58] LABS: Anion Gap 16.3 (5-19)
[2022-06-13 01:59] LABS: Potassium 3.3 mmol/L (3.5-5.1)
[2022-06-13 02:24] VITALS: BP 138/88; PULSE 80; RESP 18; O2SAT 95
--- NOTE | 2022-06-17 05:14 | W.ED.SYNCOPE ---
HPI - Syncope General: Chief Complaint: Syncope Stated Complaint: SYNCOPAL Time Seen by Provider: 06/13/22 01:00 Source: patient and EMS Mode of arrival: EMS Limitations: no limitations History of Present Illness: . [facility] ED PFSH: Medical History Anxiety and depression CAD (coronary artery disease) Chronic right shoulder pain DDD (degenerative disc disease) Decreased glomerular filtration rate (GFR) Deformity of both feet Eustachian tube dysfunction GERD (gastroesophageal reflux disease) Gout Hearing loss Hospital discharge follow-up Hypertension Migraines Osteoarthritis Parkinsons disease Pre-procedural examination Surgical History History of back surgery x6 different surgeries on the spine Family History Father Stroke Heart attack Brother Hypertension Sister Heart attack Social History Smoking and tobacco status: current every day smoker (chewing) smokeless tobacco Smokeless tobacco user: chewing tobacco Alcohol intake: former Desire information about alcohol rehabilitation?: No Desire information about substance/drug rehabilitation?: No Caregiver/support person: No Lives independently: Yes Household members: none Marital status: Single Highest education level completed: Some College, No Degree service: No Current occupational status: retired and disabled History of recent travel: Yes Current gender identity: Male Physical Exam Const: COMMON NORMALS: no acute distress, patient oriented x3 and healthy appearing HENMT: COMMON NORMALS: normocephalic and atraumatic HEAD & SCALP: normocephalic and atraumatic Eye: COMMON NORMALS: Equal, round and reactive pupils present and EOMs intact bilaterally PUPIL: Yes Equal, round and reactive pupils present Neck/C-Spine: COMMON NORMALS: full ROM and supple Chest: COMMONS NORMALS: normal inspection of the chest and normal palpation of entire chest wall Resp: COMMON NORMALS: normal respiratory effort, No retractions, No use of accessory muscles and clear to auscultation bilaterally AUSCULTATION: clear to auscultation bilaterally Cardio: COMMON NORMALS: regular rate, regular rhythm and No murmurs present (Cardio) RATE: regular rate RHYTHM: regular rhythm GI: COMMON NORMALS: Normal to inspection, nondistended, normoactive bowel sounds present, Soft to palpation, non-tender and no masses PALPATION: Yes Soft to palpation Extremity: COMMON NORMALS: normal to inspection and full ROM Neuro: COMMON NORMALS: patient oriented x3, moves all extremities and no focal motor deficits Psych: COMMON NORMALS: mental status grossly normal, Normal thought process present and cooperative THOUGHT PROCESS: Normal thought process present Skin: COMMON NORMALS: no rashes or lesions noted and no wounds GENERAL SKIN EXAM: no rashes or lesions noted Course Vital Signs: Vital signs: Vital Signs Temperature 98.0 F 06/13/22 01:04 Pulse Rate 80 06/13/22 02:24 Respiratory Rate 18 06/13/22 02:24 Blood Pressure 138/88 06/13/22 02:24 Pulse Oximetry 95 06/13/22 02:24 Oxygen Delivery Me thod 06/13/22 01:04 MDM - Syncope Medical Decision Making This is an addendum to previous note to add physical exam Lab Data 06/13/22 01:24 06/13/22 01:24 Radiology Impressions Chest X-Ray 06/13/22 01:01 IMPRESSION: No acute findings. Laboratory Results WBC 7.8 10^3/uL (4.0-10.0) 06/13/22 01:24 RBC 5.56 10^6/uL (4.1-5.3) H 06/13/22 01:24 Hgb 16.0 g/dL (11.7-16.6) 06/13/22 01:24 Hct 50.5 % (42.0-52.0) 06/13/22 01:24 MCV 90.8 fl (80-94) 06/13/22 01:24 MCH 28.8 pg (28.0-34.0) 06/13/22 01:24 MCHC 31.7 g/dL (30.0-36.0) 06/13/22 01:24 RDW 13.5 % (12.1-15.1) 06/13/22 01:24 Plt Count 293 10^3/cmm (130-400) 06/13/22 01:24 MPV 9.1 fL (7.4-10.4) 06/13/22 01:24 Neut % (Auto) 64.2 % 06/13/22 01:24 Lymph % (Auto) 26.1 % 06/13/22 01:24 [place] % (Auto) 7.7 % 06/13/22 01:24 Eos % (Auto) 1.3 % 06/13/22 01:24 Baso % (Auto) 0.1 % 06/13/22 01:24 Neut # (Auto) 5.03 10^3/uL (1.8-7.7) 06/13/22 01:24 Lymph # (Auto) 2.0 10^3/uL (0.8-4.8) 06/13/22 01:24 [place] # (Auto) 0.6 10^3/uL (0.2-0.9) 06/13/22 01:24 Eos # (Auto) 0.1 10^3/uL (0.0-0.8) 06/13/22 01:24 Baso # (Auto) 0.0 10^3/uL (0.0-0.1) 06/13/22 01:24 Nucleated RBC % (auto) 0 % 06/13/22 01:24 Nucleated RBCs # 0.0 /100WBC 06/13/22 01:24 Sodium 134 mmol/L (136-145) L 06/13/22 01:24 Potassium 3.3 mmol/L (3.5-5.1) L 06/13/22 01:24 Chloride 96 mmol/L (98-107) L 06/13/22 01:24 Carbon Dioxide 25 mmol/L (22-29) 06/13/22 01:24 Anion Gap 16.3 (5-19) 06/13/22 01:24 BUN 23 mg/dL (6-20) H 06/13/22 01:24 Creatinine 1.0 mg/dL (0.7-1.2) 06/13/22 01:24 GFR Calculation 76.7 mL/min (90-130) L 06/13/22 01:24 Glucose 113 mg/dL (65-115) 06/13/22 01:24 Calculated Osmolality 282 mOsm/kg (285-295) L 06/13/22 01:24 Calcium 9.4 mg/dL (8.5-10.5) 06/13/22 01:24 Total Bilirubin 0.4 mg/dL (0.15-1.2) 06/13/22 01:24 AST 13 U/L (0-40) 06/13/22 01:24 ALT < 5 U/L (0-41) 06/13/22 01:24 Alkaline Phosphatase 74 U/L (40-130) 06/13/22 01:24 Troponin T Baseline 9 ng/L (0-15) 06/13/22 01:24 Total Protein 7.8 g/dL (6.6-8.7) 06/13/22 01:24 Albumin 3.7 g/dL (3.5-5.2) 06/13/22 01:24 Globulin 4.1 g/dL (1.3-4.6) 06/13/22 01:24 Discharge Plan Discharge Patient Disposition: Home Clinical Impression: Syncope Condition: Stable Prescriptions: No Action metoprolol tartrate 50 mg tablet 50 mg PO BID Qty: 60 3RF carbidopa-levodopa 25-250 mg tablet See Rx Instructions .ROUTE .COMPLEX Qty: 180 5RF Rx Instructions: 1 to 1.5 tab po @00:00,1 tab po @06:00,1 to 1.5 tab po @12:00, and 1 tab po 18:00 colchicine 0.6 mg tablet 0.6 mg PO DAILY PRN (Reason: gout) Qty: 90 2RF indomethacin 75 mg capsule, extended release 75 mg PO BID PRN (Reason: Gout/arthritis attacks) Qty: 30 5RF Rx Instructions: Take for 10 to 15 days at a time for arthritic episodes omeprazole 40 mg capsule,delayed release(DR/EC) 40 mg PO QAM Qty: 90 1RF aspirin [Adult Low Dose Aspirin] 81 mg tablet,delayed release (DR/EC) 81 mg PO QAM Tylenol Ex Str Rapid Release 500 mg Tablet 1,000 mg PO Q12H Discharge Orders: Discharge ED (Routine); Ordered 06/13/22 Ordered By: Heidi Abreu Referrals: Wali Moon MD [Primary Care Provider] - 1-3 days Discharge Diet: Advance as tolerated Discharge Activity: Resume usual activity Patient Instructions: Syncope (ED) Coding Level of Care Code ED Ship Liner for Mu Pressley
== END 2022-06-13 02:26 | disposition home or self-care (01) ==
PROVIDERS: Emergency Provider Emergency Medicine; PCP Family Medicine Adult Medicine
DX: R55 Syncope and collapse (principal); Z79.82 Long term (current) use of aspirin; F17.220 Nicotine dependence, chewing tobacco, uncomplicated; I25.10 Atherosclerotic heart disease of native coronary artery without angina pectoris; I10 Essential (primary) hypertension; G20 Parkinson's disease
CPT/HCPCS: 71045; 80053; 84484; 85025; 93005; 99285

== ENCOUNTER → 2022-07-06 09:13 | Outpatient (BNVA) | payer MEDICARE, MEDICAID, SELFPAY | PROVIDERS: PCP Family Medicine Adult Medicine; Visit Provider Nurse Practitioner Family | DX: I25.10 Atherosclerotic heart disease of native coronary artery without angina pectoris (principal); R00.2 Palpitations; F17.220 Nicotine dependence, chewing tobacco, uncomplicated | CPT/HCPCS: 93005; 93225; 99214 ==

== ENCOUNTER 2022-07-06 10:27 | Outpatient (CLI) | payer MEDICARE, MEDICAID, SELFPAY ==
--- NOTE | 2022-07-06 10:43 | XRR_ITS ---
PROCEDURE INFORMATION: Exam: XR Right Knee Exam date and time: 07/06/2022 10:43 AM Age: 57 years old Clinical indication: Injury or trauma; Other: Hit wall; Blunt trauma; Right; Injury details: History--rt knee pain, hit knee on wall 1 week ago; Prior surgery TECHNIQUE: Imaging protocol: Radiologic exam of the Right knee. Views: 1 or 2 views. COMPARISON: CR XR knee RT 3V* [id number] 12/30/2021 11:52 PM FINDINGS: Bones/joints: Osteopenia. No radiographic evidence of acute fracture or dislocation. Alignment anatomic. Mild tricompartmental osteoarthrosis, most pronounced in the lateral and patellofemoral compartments. Small effusion. Soft tissues: Mild anterior soft tissue swelling. Enthesopathy at the quadriceps insertion. XR/XR knee RT 1-2V [id number] IMPRESSION: 1. Mild tricompartmental osteoarthrosis and small effusion. 2. Additional findings, as above.
== END 2022-07-06 10:28 | disposition home or self-care (01) ==
LOC: RAD 10:29
PROVIDERS: PCP Family Medicine Adult Medicine; Visit Provider Family Medicine Adult Medicine
DX: M17.11 Unilateral primary osteoarthritis, right knee (principal); M25.461 Effusion, right knee
CPT/HCPCS: 73560

== ENCOUNTER 2022-07-10 12:23 | Emergency (ER) | payer MEDICARE, MEDICAID, SELFPAY ==
[2022-07-10] VITALS (15 sets, daily range): BP systolic 103–139; BP diastolic 78–101; PULSE 79–99; RESP 16; TEMP 36.7; O2SAT 91–99
--- NOTE | 2022-07-10 12:34 | XR_ITS ---
WS: [id number] Exam: XR chest 1V portable [id number] Date/Time of Exam: 07/10/2022 12:50 PM Reason For Exam: cp Comparison 06/13/2022. The lungs are clear and fully inflated. Normal cardiomediastinal silhouette. No pleural effusions. Fu reta hardware in the lower cervical spine. Monitoring leads superimpose the chest. XR/XR chest 1V portable [id number] IMPRESSION: 1. No acute cardiopulmonary finding.
[2022-07-10 13:05] LABS: Basophils # 0.1 10^3/uL (0.0-0.1); Basophils % 0.8 %; Eosinophils # 0.2 10^3/uL (0.0-0.8); Eosinophils % 3.1 %; Hematocrit 50.6 % (42.0-52.0); Hemoglobin 16.5 g/dL (11.7-16.6); Lymphocytes # 1.5 10^3/uL (0.8-4.8); Lymphocytes % 24.8 %; Mean Corpuscular HGB Conc 32.6 g/dL (30.0-36.0); Mean Corpuscular Hemoglobin 28.5 pg (28.0-34.0); Mean Corpuscular Volume 87.5 fl (80-94); Mean Platelet Volume 9.6 fL (7.4-10.4); Monocytes # 0.4 10^3/uL (0.2-0.9); Monocytes % 6.3 %; Neutrophils % 64.5 %; Nucleated Red Blood Cells % 0 %; Platelet Count 253 10^3/cmm (130-400); Red Blood Count 5.78 10^6/uL (4.1-5.3); Red Cell Distribution Width 13.7 % (12.1-15.1); White Blood Count 5.9 10^3/uL (4.0-10.0)
[2022-07-10 13:23] LABS: Troponin(5th) Baseline 8 ng/L (0-15)
--- NOTE | 2022-07-10 13:28 | W.ED.CHESTPA ---
HPI - Chest Pain General: Chief Complaint: Chest Pain Stated Complaint: CP Time Seen by Provider: 07/10/22 12:42 Source: patient Mode of arrival: EMS History of Present Illness: 57 -year-old male presents emergency room with complaint of chest pain. States he woke up around 9:00 this morning with chest pain that was nonradiating is his upper left chest laterally. He was given aspirin in route by EMS he had called the doctor's office and they advised him that if his chest pain persisted go to the emergency room. He was wearing a heart monitor last week but has not yet returned the device for analysis. Denies fever sweats or chills no abdominal pain no radiation of the discomfort. Is been continuous since 9:00's morning he arrives here at 1223. April 05, 2022 he had a positive stress test subsequently went to the Exercise Physiology Professor on May 02. At the time of that heart catheterization he had normal coronary arteries and normal ejection fraction they recommended outpatient follow-up along with aggressive risk factor modification medical therapy. MD complaint: chest pain Pertinent past history: coronary artery disease Onset (ago): hour(s) Timing of current episode: episodic Onset: during rest Pain location: left chest Quality: tightness Relieving factors: nothing Associated symptoms: Deny abdominal pain, diaphoresis, dyspnea, fever(s), leg edema, nausea, palpitations, sense of impending doom, syncope or vomiting Treatment prior to arrival: none Review of Systems Const: Denies: fever(s) or diaphoresis Card: Reports: chest pain; Denies: palpitations, irregular heart rhythm, edema or syncope Resp: Denies: dyspnea GI: Denies: abdominal pain, nausea or vomiting [facility] ED PFSH: Medical History Anxiety and depression CAD (coronary artery disease) Chronic right shoulder pain DDD (degenerative disc disease) Decreased glomerular filtration rate (GFR) Deformity of both feet Eustachian tube dysfunction GERD (gastroesophageal reflux disease) Gout Hearing loss Hospital discharge follow-up Hypertension Knee pain, right Migraines Osteoarthritis Parkinsons disease Pre-procedural examination Surgical History History of back surgery x6 different surgeries on the spine Family History Father Stroke Heart attack Brother Hypertension Sister Heart attack Social History Smoking and tobacco status: current every day smoker (chewing) smokeless tobacco Smokeless tobacco user: chewing tobacco Alcohol intake: former Desire information about alcohol rehabilitation?: No Desire information about substance/drug rehabilitation?: No Caregiver/support person: No Lives independently: Yes Household members: none Marital status: Single Highest education level completed: Some College, No Degree service: No Current occupational status: retired and disabled History of recent travel: Yes Current gender identity: Male Physical Exam Const: GENERAL APPEARANCE: cooperative and comfortable ORIENTATION/CONSCIOUSNESS: Yes awake, Yes oriented to person, Yes oriented to place and Yes oriented to time HENMT: COMMON NORMALS: normocephalic, atraumatic and hearing grossly normal bilaterally HEAD & SCALP: normocephalic and atraumatic Resp: COMMON NORMALS: normal respiratory effort, No retractions, No use of accessory muscles and clear to auscultation bilaterally AUSCULTATION: clear to auscultation bilaterally Cardio: COMMON NORMALS: regular rate, regular rhythm and No murmurs present (Cardio) RATE: regular rate RHYTHM: regular rhythm GI: COMMON NORMALS: Soft to palpation and No hepatosplenomegaly present AUSCULTATION: Yes normoactive bowel sounds PALPATION: Yes Soft to palpation, No Tenderness to palpation present (GI), No Guarding due to palpation present (GI) and Yes No hepatosplenomegaly present Extremity: COMMON NORMALS: normal to inspection, capillary refill normal, no clubbing, cyanosis or edema, no calf tenderness and no pedal edema Neuro: SENSORIUM/ORIENTATION: Yes oriented to person, Yes oriented to place and Yes oriented to time Skin: COMMON NORMALS: no rashes or lesions noted GENERAL SKIN EXAM: no rashes or lesions noted Course Vital Signs: Vital signs: Vital Signs Temperature 98.1 F 07/10/22 12:34 Pulse Rate 89 07/10/22 16:15 Respiratory Rate 16 07/10/22 12:34 Blood Pressure 132/98 07/10/22 16:15 Pulse Oximetry 99 07/10/22 16:15 Oxygen Delivery Me thod 07/10/22 13:45 MDM - Chest Pain Medical Decision Making Cardiac enzymes and EKG did not show anything acute. EKGs reviewed in chart no acute ST changes noted. Patient had coronary angiogram in May 02, 2022 which is unremarkable. At this point he can safely be discharged no change in medications of symptoms are resolved follow-up as needed Medical Records I reviewed the patient's medical records. Lab Data I reviewed the patient's lab results. 07/10/22 12:54 07/10/22 12:54 Radiology Impressions Chest X-Ray 07/10/22 12:34 IMPRESSION: 1. No acute cardiopulmonary finding. Laboratory Results WBC 5.9 10^3/uL (4.0-10.0) 07/10/22 12:54 RBC 5.78 10^6/uL (4.1-5.3) H 07/10/22 12:54 Hgb 16.5 g/dL (11.7-16.6) 07/10/22 12:54 Hct 50.6 % (42.0-52.0) 07/10/22 12:54 MCV 87.5 fl (80-94) 07/10/22 12:54 MCH 28.5 pg (28.0-34.0) 07/10/22 12:54 MCHC 32.6 g/dL (30.0-36.0) 07/10/22 12:54 RDW 13.7 % (12.1-15.1) 07/10/22 12:54 Plt Count 253 10^3/cmm (130-400) 07/10/22 12:54 MPV 9.6 fL (7.4-10.4) 07/10/22 12:54 Neut % (Auto) 64.5 % 07/10/22 12:54 Lymph % (Auto) 24.8 % 07/10/22 12:54 [place] % (Auto) 6.3 % 07/10/22 12:54 Eos % (Auto) 3.1 % 07/10/22 12:54 Baso % (Auto) 0.8 % 07/10/22 12:54 Neut # (Auto) 3.80 10^3/uL (1.8-7.7) 07/10/22 12:54 Lymph # (Auto) 1.5 10^3/uL (0.8-4.8) 07/10/22 12:54 [place] # (Auto) 0.4 10^3/uL (0.2-0.9) 07/10/22 12:54 Eos # (Auto) 0.2 10^3/uL (0.0-0.8) 07/10/22 12:54 Baso # (Auto) 0.1 10^3/uL (0.0-0.1) 07/10/22 12:54 Nucleated RBC % (auto) 0 % 07/10/22 12:54 Nucleated RBCs # 0.0 /100WBC 07/10/22 12:54 Sodium 141 mmol/L (136-145) 07/10/22 12:54 Potassium 3.6 mmol/L (3.5-5.1) 07/10/22 12:54 Chloride 103 mmol/L (98-107) 07/10/22 12:54 Carbon Dioxide 26 mmol/L (22-29) 07/10/22 12:54 Anion Gap 15.6 (5-19) 07/10/22 12:54 BUN 13 mg/dL (6-20) 07/10/22 12:54 Creatinine 0.9 mg/dL (0.7-1.2) 07/10/22 12:54 GFR Calculation 86.7 mL/min (90-130) L 07/10/22 12:54 Glucose 114 mg/dL (65-115) 07/10/22 12:54 Calculated Osmolality 293 mOsm/kg (285-295) 07/10/22 12:54 Calcium 9.7 mg/dL (8.5-10.5) 07/10/22 12:54 Total Bilirubin 0.3 mg/dL (0.15-1.2) 07/10/22 12:54 AST 11 U/L (0-40) 07/10/22 12:54 ALT < 5 U/L (0-41) 07/10/22 12:54 Alkaline Phosphatase 97 U/L (40-130) 07/10/22 12:54 Troponin T Baseline 8 ng/L (0-15) 07/10/22 12:54 Troponin T 120 Minute 7.36 ng/L (0-15) 07/10/22 14:57 Delta Troponin T -0.64 ABS# (0-10) L 07/10/22 14:57 NT-Pro-B Natriuret Pep 65 pg/mL (0-125) 07/10/22 12:54 Total Protein 7.4 g/dL (6.6-8.7) 07/10/22 12:54 Albumin 4.2 g/dL (3.5-5.2) 07/10/22 12:54 Globulin 3.2 g/dL (1.3-4.6) 07/10/22 12:54 Discharge Plan Discharge Patient Disposition: Home Clinical Impression: Chest wall pain Condition: Stable Prescriptions: No Action metoprolol tartrate 50 mg tablet 50 mg PO BID Qty: 60 3RF carbidopa-levodopa 25-250 mg tablet See Rx Instructions .ROUTE .COMPLEX Qty: 180 5RF Rx Instructions: 1 to 1.5 tab po @00:00,1 tab po @06:00,1 to 1.5 tab po @12:00, and 1 tab po 18:00 colchicine 0.6 mg tablet 0.6 mg PO DAILY PRN (Reason: gout) Qty: 90 2RF indomethacin 75 mg capsule, extended release 75 mg PO BID PRN (Reason: Gout/arthritis attacks) Qty: 30 5RF Rx Instructions: Take for 10 to 15 days at a time for arthritic episodes omeprazole 40 mg capsule,delayed release(DR/EC) 40 mg PO QAM Qty: 90 1RF aspirin [Adult Low Dose Aspirin] 81 mg tablet,delayed release (DR/EC) 81 mg PO QAM Tylenol Ex Str Rapid Release 500 mg Tablet 1,000 mg PO Q12H Discharge Orders: Discharge ED (Routine); Ordered 07/10/22 Ordered By: Gavin Blackman Referrals: Wali Moon MD [Primary Care Provider] - Discharge Diet: Usual diet Discharge Activity: Resume usual activity Patient Instructions: Opioid Safety, Pain Management Activity Restrictions/Additional Instructions: You were seen today for chest pain. Your heart enzymes were negative and your EKGs were normal. Your cardiac catheterization done in April 2022 was also normal. Based on this the discomfort you had today appears to be noncardiac. We will discharge you home and have you follow-up with your primary care provider as needed. Continue all previously prescribed medications. Coding Level of Care Code ED File Machine Operator for Chg Fwd Exam Detailed
[2022-07-10 13:37] LABS: Alanine Aminotransferase < 5 U/L (0-41); Albumin Level 4.2 g/dL (3.5-5.2); Alkaline Phosphatase 97 U/L (40-130); Anion Gap 15.6 (5-19); Aspartate Amino Transferase 11 U/L (0-40); Blood Urea Nitrogen 13 mg/dL (6-20); Calcium 9.7 mg/dL (8.5-10.5); Carbon Dioxide 26 mmol/L (22-29); Chloride 103 mmol/L (98-107); Globulin 3.2 g/dL (1.3-4.6); Glomerular Filtration Rate 86.7 mL/min (90-130); Glucose 114 mg/dL (65-115); NT Pro B Type Natriuretic Pept 65 pg/mL (0-125); Osmolality Calculated 293 mOsm/kg (285-295); Potassium 3.6 mmol/L (3.5-5.1); Sodium 141 mmol/L (136-145); Total Bilirubin 0.3 mg/dL (0.15-1.2); Total Protein 7.4 g/dL (6.6-8.7)
--- NOTE | 2022-07-10 13:43 | ECG_ITS ---
[facility] Test Date: 2022-07-10 Pat Name: Jude Burden Department: Room: Gender: Male Breakfast Host: : 1965 Requested By: Agus Villalobos Order Number: [id number] Isabel MD: Rashad El M.D. Measurements Intervals [place] Rate: 81 P: 51 [place]: 161 QRS: 15 QRSD: 94 T: 19 QT: 382 QTc: 446 Interpretive Statements SINUS RHYTHM Compared to ECG 06/13/2022 01:10:17 No significant changes Electronically Signed On 07-10-2022 14:52:19 BOTTLE ASSEMBLER by Rashad El M.D. [id number]
[2022-07-10 15:26] LABS: Troponin 5 2HR 7.36 ng/L (0-15)
[2022-07-10 15:40] LABS: Troponin 5 2HR Delta -0.64 ABS# (0-10)
== END 2022-07-10 16:21 | disposition home or self-care (01) ==
PROVIDERS: Emergency Medicine; Emergency Provider Family Medicine; PCP Family Medicine Adult Medicine
DX: R07.89 Other chest pain (principal); Z79.82 Long term (current) use of aspirin; F17.220 Nicotine dependence, chewing tobacco, uncomplicated; I25.10 Atherosclerotic heart disease of native coronary artery without angina pectoris; I10 Essential (primary) hypertension; G20 Parkinson's disease
CPT/HCPCS: 71045; 80053; 83880; 84484; 85025; 93005; 99285

== ENCOUNTER 2022-08-02 18:27 | Emergency (ER) | payer MEDICARE, MEDICAID, SELFPAY ==
[2022-08-02 18:53] VITALS: BP 139/91; PULSE 90; RESP 18; TEMP 36.9; O2SAT 96; BMI 29.1
--- NOTE | 2022-08-02 19:04 | XRR_ITS ---
PROCEDURE INFORMATION: Exam: XR Right Knee Exam date and time: 08/02/2022 7:27 PM Age: 57 years old Clinical indication: Injury or trauma; Fall; Blunt trauma; Right; Injury details: Injury; PT states he jumped sun 07/29/2022 and pain has not decreased since; Prior surgery; Surgery date: 6+ months; Surgery type: Unclear, scope bilat knee, RT ankle TECHNIQUE: Imaging protocol: Radiologic exam of the Right knee. Views: 3 views. COMPARISON: CR XR knee RT 1-2V [id number] 07/06/2022 10:43 AM FINDINGS: Bones/joints: Mild lateral knee compartment primary osteoarthritis. Mild patellofemoral compartment primary osteoarthritis. Moderate joint effusion. Soft tissues: Normal. XR/XR knee RT 3V* [id number] IMPRESSION: 1. Mild lateral knee compartment primary osteoarthritis. 2. Mild patellofemoral compartment primary osteoarthritis. 3. Moderate joint effusion.
--- NOTE | 2022-08-02 19:04 | XRR_ITS ---
PROCEDURE INFORMATION: Exam: XR Right Ankle Exam date and time: 08/02/2022 7:27 PM Age: 57 years old Clinical indication: Injury or trauma; Fall; Blunt trauma; Right; Injury details: Injury; PT states he jumped sun 07/29/2022 and pain has not decreased since; Prior surgery; Surgery date: 6+ months; Surgery type: Scope bilat knee; RT ankle TECHNIQUE: Imaging protocol: Radiologic exam of the Right ankle. Views: 3 or more views. COMPARISON: [place] [id number] ORTH 02/14/2022 2:15 PM FINDINGS: Bones/joints: Distention of the ankle joint capsule consistent with posttraumatic joint effusion and/or ligamentous disruption. Ossification/calcification over the Achilles tendon insertion on the posterior calcaneus consistent with enthesopathy. Soft tissues: Normal. XR/XR ankle RT min 3V* [id number] IMPRESSION: Distention of the ankle joint capsule consistent with posttraumatic joint effusion and/or ligamentous disruption.
--- NOTE | 2022-08-02 19:11 | W.ED.EXTPRO ---
HPI - Extremity Problem General: Chief complaint: Extremity Injury, Lower Stated complaint: Rt Leg\Ankle\Knee Time Seen by Provider: 08/02/22 19:03 Source: patient Mode of arrival: ambulatory Limitations: no limitations History of Present Illness: 57-year-old male states that on Saturday he is excited that that she is stable on the [place] he states he jumped up and when he came down he twisted his right ankle he states that since then he has had increasing right ankle and knee pain. He states he had a hard time walking on that leg. Denies any other injuries rates pain a 5 out of 10 currently. Associated symptoms: Deny chest pain, fever(s) or rash Review of Systems Const: Denies: fever(s), chills, body aches or change in appetite Eyes: Denies: blurry vision or eye discomfort ENMT: Denies: throat pain or dental pain Card: Denies: chest pain Resp: Denies: dyspnea GI: Denies: abdominal pain, nausea, vomiting or diarrhea : Denies: dysuria Musc: Reports: extremity pain Skin/Breast: Denies: rash Neuro: Denies: headache(s) Psych: Denies: depression [place]/Lymph: Denies: easy bruising All/Imm: Denies: urticaria PFSH ED PFSH: Medical History Anxiety and depression CAD (coronary artery disease) Chronic right shoulder pain DDD (degenerative disc disease) Decreased glomerular filtration rate (GFR) Deformity of both feet Eustachian tube dysfunction GERD (gastroesophageal reflux disease) Gout Hearing loss Hospital discharge follow-up Hypertension Knee pain, right Migraines Osteoarthritis Parkinsons disease Pre-procedural examination Surgical History History of back surgery x6 different surgeries on the spine Family History Father Stroke Heart attack Brother Hypertension Sister Heart attack Social History Smoking and tobacco status: current every day smoker (chewing) smokeless tobacco Smokeless tobacco user: chewing tobacco Alcohol intake: former Desire information about alcohol rehabilitation?: No Desire information about substance/drug rehabilitation?: No Caregiver/support person: No Lives independently: Yes Household members: none Marital status: Single Highest education level completed: Some College, No Degree service: No Current occupational status: retired and disabled Current gender identity: Male Physical Exam Const: COMMON NORMALS: no acute distress and patient oriented x3 HENMT: COMMON NORMALS: normocephalic and atraumatic HEAD & SCALP: normocephalic and atraumatic Eye: COMMON NORMALS: conjunctivae normal CONJUNCTIVA: Yes conjunctivae normal Neck/C-Spine: COMMON NORMALS: supple Chest: COMMONS NORMALS: normal inspection of the chest Resp: COMMON NORMALS: normal respiratory effort Cardio: COMMON NORMALS: regular rate RATE: regular rate GI: INSPECTION: Yes normal to inspection Extremity: OTHER: Tenderness over knee and right lateral ankle no obvious deformities distal pulses intact Neuro: COMMON NORMALS: patient oriented x3 Psych: COMMON NORMALS: mental status grossly normal Skin: COMMON NORMALS: no rashes or lesions noted GENERAL SKIN EXAM: no rashes or lesions noted Course Vital Signs: Vital signs: Vital Signs Temperature 98.5 F 08/02/22 18:53 Pulse Rate 90 08/02/22 18:53 Respiratory Rate 18 08/02/22 18:53 Blood Pressure 139/91 08/02/22 18:53 Pulse Oximetry 96 08/02/22 18:53 Oxygen Delivery Me thod 08/02/22 18:53 MDM - Extremity (Nontraumatic) Medical Decision Making Patient presents here with an ankle sprain along with a knee sprain from a fall x-ray here shows no fracture he is to weight-bear as tolerated he has crutches at home that he is to use we will place an Paulino wrap and follow-up with orthopedics he understands agrees to plan. Lab Data Radiology Impressions Ankle X-Ray 08/02/22 19:04 IMPRESSION: Distention of the ankle joint capsule consistent with posttraumatic joint effusion and/or ligamentous disruption. Knee X-Ray 08/02/22 19:04 IMPRESSION: 1. Mild lateral knee compartment primary osteoarthritis. 2. Mild patellofemoral compartment primary osteoarthritis. 3. Moderate joint effusion. Discharge Plan Discharge Patient Disposition: Home Clinical Impression: Ankle sprain and strain, Right knee sprain Condition: Stable Prescriptions: New Naprosyn 500 mg tablet 500 mg PO BID PRN (Reason: pain) Qty: 20 0RF No Action metoprolol tartrate 50 mg tablet 50 mg PO BID Qty: 60 3RF carbidopa-levodopa 25-250 mg tablet See Rx Instructions .ROUTE .COMPLEX Qty: 180 5RF Rx Instructions: 1 to 1.5 tab po @00:00,1 tab po @06:00,1 to 1.5 tab po @12:00, and 1 tab po 18:00 colchicine 0.6 mg tablet 0.6 mg PO DAILY PRN (Reason: gout) Qty: 90 2RF indomethacin 75 mg capsule, extended release 75 mg PO BID PRN (Reason: Gout/arthritis attacks) Qty: 30 5RF Rx Instructions: Take for 10 to 15 days at a time for arthritic episodes omeprazole 40 mg capsule,delayed release(DR/EC) 40 mg PO QAM Qty: 90 1RF aspirin [Adult Low Dose Aspirin] 81 mg tablet,delayed release (DR/EC) 81 mg PO QAM Tylenol Ex Str Rapid Release 500 mg Tablet 1,000 mg PO Q12H Discharge Orders: Discharge ED (Routine); Ordered 08/02/22 Ordered By: Heidi Abreu Referrals: Wali Moon MD [Primary Care Provider] - Margarita Snyder MD [Physician] - 1-3 days Discharge Diet: Advance as tolerated Discharge Activity: Increase activity as tolerated and Use walker/crutches as instructed Patient Instructions: Ankle Sprain (ED), Knee Sprain (ED) Coding Level of Care Code ED Roller Mechanic for Mu Pressley
[2022-08-02] MEDS: HYDROcodone-acetaminophen 7.5-325 mg Tablet 1 TAB PO (20:22)
[2022-08-02 20:38] VITALS: PULSE 88; RESP 16; O2SAT 99
--- NOTE | 2022-08-02 20:39 | PC.NURSE ---
CRUTCHES DENIED PATIENT HAS THEM AT HOME.
--- NOTE | 2022-08-06 09:34 | DCPLANNER ---
Addendum entered by Rosemarie Lechuga 08/08/22 15:33: Patient had a follow up appointment scheduled with ortho - patient did not attend appointment. Original Note: integrated campaign manager had message to schedule a follow up appointment for patient with ortho. integrated campaign manager sent patients information to the front office staff at ortho. Patients information will be printed and reviewed. Clinic will call patient with appointment information.
== END 2022-08-02 20:24 | disposition home or self-care (01) ==
PROVIDERS: Emergency Provider Emergency Medicine; PCP Family Medicine Adult Medicine
DX: S93.401A Sprain of unspecified ligament of right ankle, initial encounter (principal); S96.911A Strain of unspecified muscle and tendon at ankle and foot level, right foot, initial encounter; S83.91XA Sprain of unspecified site of right knee, initial encounter; X50.1XXA Overexertion from prolonged static or awkward postures, initial encounter
CPT/HCPCS: 73562; 73610; 99283

== ENCOUNTER 2022-08-20 14:57 | Emergency (ER) | payer MEDICARE, MEDICAID, SELFPAY ==
[2022-08-20 15:21] VITALS: BP 156/102; PULSE 91; RESP 17; TEMP 37.2; O2SAT 94; BMI 28.3
--- NOTE | 2022-08-20 15:40 | ED_ITS ---
Documented by User: NADEEM Kebede 08/21/22 07:26 HPI - Extremity Problem General: Chief complaint: Extremity Injury, Upper Stated complaint: left arm swelling Time Seen by Provider: 08/20/22 15:27 Source: patient Mode of arrival: ambulatory Limitations: no limitations History of Present Illness: Patient is a 57-year-old male who presents to ED today with a complaint of left upper extremity pain and swelling. He states symptoms initially began yesterday but woke up this morning with significant pain from his elbow down to his wrist along with swelling. Patient denies any injury or trauma. He has not had any scrapes/lacerations/abrasions/injury points for infection. He has not noticed any redness or streaking to the extremity. He states pain is significantly worse with range of motion of the elbow or wrist. Looking at previous documentation he was here back in May with almost identical symptoms. Patient states he was treated with Indomethacin as well as Levofloxacin. It looks like he followed up with Dr. Moon a few days following that visit and symptoms had subsided. He states he does have a history of gout although I do not know that this is ever been confirmed with fluid analysis. Complaint: extremity pain, extremity swelling, joint swelling and joint pain Onset (ago): day(s) (yesterday) Pain Consistency: constant Location: left and upper extremity Severity scale (1-10): 10 Quality: aching and constant Radiation: proximal Relieving factors: nothing Exacerbating factors: range of motion and palpation Associated symptoms: Reports no associated symptoms PFS ED PFSH: Medical History Anxiety and depression CAD (coronary artery disease) Chronic right shoulder pain DDD (degenerative disc disease) Decreased glomerular filtration rate (GFR) Deformity of both feet Eustachian tube dysfunction GERD (gastroesophageal reflux disease) Gout Hearing loss Hospital discharge follow-up Hypertension Knee pain, right Migraines Osteoarthritis Parkinsons disease Pre-procedural examination Surgical History History of back surgery x6 different surgeries on the spine Family History Father Stroke Heart attack Brother Hypertension Sister Heart attack Social History Smoking and tobacco status: current every day smoker (chewing) smokeless tobacco Smokeless tobacco user: chewing tobacco Alcohol intake: former Desire information about alcohol rehabilitation?: No Desire information about substance/drug rehabilitation?: No Caregiver/support person: No Lives independently: Yes Household members: none Marital status: Single Highest education level completed: Some College, No Degree service: No Current occupational status: retired and disabled Current gender identity: Male Physical Exam Const: COMMON NORMALS: no acute distress and no limitations Extremity: OTHER: pt has fairly significant tenderness focused to L elbow and L wrist regions; there is diffuse swelling from elbow down into hand without redness or streaking present; pain is worse with any form of ROM of elbow or wrist; extremity is NV intact with normal pulses, sensation, and cap refill Course ED course: Care transferred to Jude Sue PA-C pending labs. US of upper extremities negative for DVT. XR of the elbow and wrist show osteoarthritis but no obvious effusions. Patient had an almost identical presentation back in May. With the acute onset and lack of risk factors for septic arthritis I would favor gout at this time. Vital Signs: Vital signs: Vital Signs Temperature 98.1 F 08/20/22 18:56 Pulse Rate 85 08/20/22 18:56 Respiratory Rate 15 08/20/22 18:56 Blood Pressure 143/92 08/20/22 18:56 Pulse Oximetry 95 08/20/22 18:56 Oxygen Delivery Me thod 08/20/22 18:56 MDM - Extremity (Nontraumatic) Lab Data 08/20/22 17:05 08/20/22 17:05 Radiology Impressions Elbow X-Ray 08/20/22 15:48 IMPRESSION: Severe osteoarthritis of the elbow again seen similar to prior exam. Venous Duplex 08/20/22 15:48 IMPRESSION: No evidence of deep vein thrombosis. Wrist X-Ray 08/20/22 15:48 IMPRESSION: 1. Moderate to severe radiocarpal joint osteoarthritis. 2. Soft tissue swelling about the wrist. Laboratory Results WBC 13.5 10^3/uL (4.0-10.0) H 08/20/22 17:05 RBC 5.25 10^6/uL (4.1-5.3) 08/20/22 17:05 Hgb 15.3 g/dL (11.7-16.6) 08/20/22 17:05 Hct 46.7 % (42.0-52.0) 08/20/22 17:05 MCV 89.0 fl (80-94) 08/20/22 17:05 MCH 29.1 pg (28.0-34.0) 08/20/22 17:05 MCHC 32.8 g/dL (30.0-36.0) 08/20/22 17:05 RDW 14.3 % (12.1-15.1) 08/20/22 17:05 Plt Count 280 10^3/cmm (130-400) 08/20/22 17:05 MPV 10.0 fL (7.4-10.4) 08/20/22 17:05 Neut % (Auto) 78.9 % 08/20/22 17:05 Lymph % (Auto) 11.0 % 08/20/22 17:05 Vigo % (Auto) 8.1 % 08/20/22 17:05 Eos % (Auto) 1.2 % 08/20/22 17:05 Baso % (Auto) 0.3 % 08/20/22 17:05 Neut # (Auto) 10.66 10^3/uL (1.8-7.7) H 08/20/22 17:05 Lymph # (Auto) 1.5 10^3/uL (0.8-4.8) 08/20/22 17:05 Vigo # (Auto) 1.1 10^3/uL (0.2-0.9) H 08/20/22 17:05 Eos # (Auto) 0.2 10^3/uL (0.0-0.8) 08/20/22 17:05 Baso # (Auto) 0.0 10^3/uL (0.0-0.1) 08/20/22 17:05 Nucleated RBC % (auto) 0 % 08/20/22 17:05 Nucleated RBCs # 0.0 /100WBC 08/20/22 17:05 ESR 23 mm/hr (0-10) H 08/20/22 17:05 Sodium 144 mmol/L (136-145) 08/20/22 17:05 Potassium 3.2 mmol/L (3.5-5.1) L 08/20/22 17:05 Chloride 102 mmol/L (98-107) 08/20/22 17:05 Carbon Dioxide 30 mmol/L (22-29) H 08/20/22 17:05 Anion Gap 15.2 (5-19) 08/20/22 17:05 BUN 12 mg/dL (6-20) 08/20/22 17:05 Creatinine 0.9 mg/dL (0.7-1.2) 08/20/22 17:05 GFR Calculation 86.7 mL/min (90-130) L 08/20/22 17:05 Glucose 112 mg/dL (65-115) 08/20/22 17:05 Calculated Osmolality 299 mOsm/kg (285-295) H 08/20/22 17:05 Uric Acid 8.8 mg/dL (3.4-7.0) H 08/20/22 17:05 Calcium 9.5 mg/dL (8.5-10.5) 08/20/22 17:05 Total Bilirubin 0.5 mg/dL (0.15-1.2) 08/20/22 17:05 AST 10 U/L (0-40) 08/20/22 17:05 ALT < 5 U/L (0-41) 08/20/22 17:05 Alkaline Phosphatase 69 U/L (40-130) 08/20/22 17:05 C-Reactive Protein 85.4 mg/L (0.0-4.9) H 08/20/22 17:05 Total Protein 7.5 g/dL (6.6-8.7) 08/20/22 17:05 Albumin 3.9 g/dL (3.5-5.2) 08/20/22 17:05 Globulin 3.6 g/dL (1.3-4.6) 08/20/22 17:05 Discharge Plan Discharge Patient Disposition: Home Clinical Impression: Arthralgia Qualifiers: Joint pain location: unspecified Qualified Code(s): M25.50 - Pain in unspecifi ed joint Cellulitis Qualifiers: Site of cellulitis: extremity Site of cellulitis of extremity: upper extremity Laterality: left Qualified Code(s): L03.114 - Cellulitis of left upper limb Condition: Stable Prescriptions: New indomethacin 75 mg capsule, extended release 75 mg PO BID Qty: 20 0RF levofloxacin 750 mg tablet 750 mg PO DAILY 10 Days Qty: 10 0RF No Action metoprolol tartrate 50 mg tablet 50 mg PO BID Qty: 60 3RF carbidopa-levodopa 25-250 mg tablet See Rx Instructions .ROUTE .COMPLEX Qty: 180 5RF Rx Instructions: 1 to 1.5 tab po @00:00,1 tab po @06:00,1 to 1.5 tab po @12:00, and 1 tab po 18:00 colchicine 0.6 mg tablet 0.6 mg PO DAILY PRN (Reason: gout) Qty: 90 2RF indomethacin 75 mg capsule, extended release 75 mg PO BID PRN (Reason: Gout/arthritis attacks) Qty: 30 5RF Rx Instructions: Take for 10 to 15 days at a time for arthritic episodes omeprazole 40 mg capsule,delayed release(DR/EC) 40 mg PO QAM Qty: 90 1RF Naprosyn 500 mg tablet 500 mg PO BID PRN (Reason: pain) Qty: 20 0RF aspirin [Adult Low Dose Aspirin] 81 mg tablet,delayed release (DR/EC) 81 mg PO QAM Tylenol Ex Str Rapid Release 500 mg Tablet 1,000 mg PO Q12H Discharge Orders: Discharge ED (Routine); Ordered 08/20/22 Ordered By: Jude Sue Referrals: Wali Moon MD [Primary Care Provider] - Discharge Diet: Regular Discharge Activity: Increase activity as tolerated Activity Restrictions/Additional Instructions: Follow-up with medical provider as directed. Case management should be contacting you in the next several days to set up an appointment with orthopedic doctor for follow-up. Take medications as prescribed. Wear shoulder sling for comfort. Return to the ER or your medical provider if condition worsens. Please read and understand discharge instructions. Thank you for choosing [facility] for your healthcare needs today. Marc jerry realize this is an emergency room and that we are providing you with a medical screening exam and this may not be complete and all inclusive of all the testing and or work up that you may need to determine your ailment or severity of your illness. It is very important that you follow up as instructed or that you return to the Emergency Department should you have concerns or if your condition changes or worsens in any way. Sign Out Sign Out Data: Patient Sign Out occurred on 08/20/22 at 17:12. Patient's care was discussed, and care was transferred from to NADEEM Gilbert. Coding Level of Care Code ED Manager Instrumentation for Chg Fwd Documented by User: NADEEM Gilbert 08/21/22 00:13 HPI - Extremity Problem General: Chief complaint: Extremity Injury, Upper Stated complaint: left arm swelling Time Seen by Provider: 08/20/22 15:27 History of Present Illness: Associated symptoms: Deny chest pain, fever(s) or rash Review of Systems Const: Denies: fever(s), chills or fatigue Eyes: Denies: change in vision or eye discomfort ENMT: Denies: throat pain, odynophagia, nasal discharge or nasal congestion Card: Denies: chest pain, palpitations, edema, swelling of feet/ankles, dyspnea on exertion or orthopnea Resp: Denies: dyspnea, productive cough or non-productive cough GI: Denies: abdominal pain, nausea, vomiting, diarrhea, constipation or hematochezia : Denies: flank pain, difficulty urinating, dysuria or hematuria Musc: Reports: extremity pain (Left elbow and left wrist) and extremity swelling (Left elbow and left wrist); Denies: neck pain or back pain Skin/Breast: Denies: rash or new lesions Neuro: Denies: headache(s), numbness in extremities or weakness in extremities PFSH ED PFSH: Medical History Anxiety and depression CAD (coronary artery disease) Chronic right shoulder pain DDD (degenerative disc disease) Decreased glomerular filtration rate (GFR) Deformity of both feet Eustachian tube dysfunction GERD (gastroesophageal reflux disease) Gout Hearing loss Hospital discharge follow-up Hypertension Knee pain, right Migraines Osteoarthritis Parkinsons disease Pre-procedural examination Surgical History History of back surgery x6 different surgeries on the spine Family History Father Stroke Heart attack Brother Hypertension Sister Heart attack Social History Smoking and tobacco status: current every day smoker (chewing) smokeless tobacco Smokeless tobacco user: chewing tobacco Alcohol intake: former Desire information about alcohol rehabilitation?: No Desire information about substance/drug rehabilitation?: No Caregiver/support person: No Lives independently: Yes Household members: none Marital status: Single Highest education level completed: Some College, No Degree service: No Current occupational status: retired and disabled Current gender identity: Male Physical Exam Const: COMMON NORMALS: patient oriented x3 and alert GENERAL APPEARANCE: cooperative HENMT: COMMON NORMALS: normocephalic HEAD & SCALP: normocephalic MOUTH: Normal oral and palatal mucosa present THROAT: posterior oropharynx normal and uvula midline Neck/C-Spine: COMMON NORMALS: supple GENERAL: Yes normal visual inspection Resp: COMMON NORMALS: normal respiratory effort, No retractions, No use of accessory muscles and clear to auscultation bilaterally AUSCULTATION: clear to auscultation bilaterally Cardio: COMMON NORMALS: regular rate, regular rhythm, S1 normal heart sound present, S2 normal heart sound present, No gallops present (Cardio), No clicks present (Cardio), No murmurs present (Cardio) and Peripheral pulses 2+ throughout RATE: regular rate RHYTHM: regular rhythm HEART SOUNDS: S1 normal heart sound present and S2 normal heart sound present PERIPHERAL PULSES: Peripheral pulses 2+ throughout GI: COMMON NORMALS: Normal to inspection, nondistended, normoactive bowel sounds present, Soft to palpation, non-tender and no masses PALPATION: Yes Soft to palpation : COMMON NORMALS: Yes no CVA tenderness BLADDER/KIDNEY EXAM: Yes no CVA tenderness Back/Pelvis: COMMON NORMALS: no CVA tenderness Extremity: NARRATIVE EXTREMITY EXAM: Left wrist?radial pulse 2+. Significant swelling around wrist with some warmth. No redness seen. Pain with range of motion. Neurovascular intact distally. Neuro: COMMON NORMALS: patient oriented x3 SENSORIUM/ORIENTATION: Yes alert GAIT: Yes Normal gait present Skin: GENERAL SKIN EXAM: dry skin Course Vital Signs: Vital signs: Vital Signs Temperature 98.1 F 08/20/22 18:56 Pulse Rate 85 08/20/22 18:56 Respiratory Rate 15 08/20/22 18:56 Blood Pressure 143/92 08/20/22 18:56 Pulse Oximetry 95 08/20/22 18:56 Oxygen Delivery Me thod 08/20/22 18:56 MDM - Extremity (Nontraumatic) Medical Decision Making Patient is a 57-year-old male comes to the ED with left arm pain and swelling. Pain is located in the left wrist and into the left elbow. Patient has had symptoms like this before a couple months ago. Denies any injury or trauma to cause symptoms. Patient is afebrile. Vitals are stable.Left wrist?radial pulse 2+. Significant swelling around wrist with some warmth. No redness seen. Pain with range of motion. Neurovascular intact distally. White blood cell count of 13.5 and the rest of CBC and CMP were unremarkable. Uric acid level was 8.8. Left arm venous duplex showed no DVT. Left elbow x-ray showed severe osteoarthritis of the elbow. Left wrist x-ray shows moderate to severe radiocarpal joint osteoarthritis with soft tissue swelling noted. Differential diagnosis of cellulitis, arthralgia, gout, OA. Patient states that his symptoms got better after getting antibiotic and indomethacin last time. I placed an order with case management for patient be referred to Ortho for follow-up. He was discharged home with a prescription for Levaquin and indomethacin. Strict return to ED precautions given. Patient understood and agreed with plan. Lab Data I reviewed the patient's lab results. 08/20/22 17:05 08/20/22 17:05 Radiology Impressions Elbow X-Ray 08/20/22 15:48 IMPRESSION: Severe osteoarthritis of the elbow again seen similar to prior exam. Venous Duplex 08/20/22 15:48 IMPRESSION: No evidence of deep vein thrombosis. Wrist X-Ray 08/20/22 15:48 IMPRESSION: 1. Moderate to severe radiocarpal joint osteoarthritis. 2. Soft tissue swelling about the wrist. Laboratory Results WBC 13.5 10^3/uL (4.0-10.0) H 08/20/22 17:05 RBC 5.25 10^6/uL (4.1-5.3) 08/20/22 17:05 Hgb 15.3 g/dL (11.7-16.6) 08/20/22 17:05 Hct 46.7 % (42.0-52.0) 08/20/22 17:05 MCV 89.0 fl (80-94) 08/20/22 17:05 MCH 29.1 pg (28.0-34.0) 08/20/22 17:05 MCHC 32.8 g/dL (30.0-36.0) 08/20/22 17:05 RDW 14.3 % (12.1-15.1) 08/20/22 17:05 Plt Count 280 10^3/cmm (130-400) 08/20/22 17:05 MPV 10.0 fL (7.4-10.4) 08/20/22 17:05 Neut % (Auto) 78.9 % 08/20/22 17:05 Lymph % (Auto) 11.0 % 08/20/22 17:05 Vigo % (Auto) 8.1 % 08/20/22 17:05 Eos % (Auto) 1.2 % 08/20/22 17:05 Baso % (Auto) 0.3 % 08/20/22 17:05 Neut # (Auto) 10.66 10^3/uL (1.8-7.7) H 08/20/22 17:05 Lymph # (Auto) 1.5 10^3/uL (0.8-4.8) 08/20/22 17:05 Vigo # (Auto) 1.1 10^3/uL (0.2-0.9) H 08/20/22 17:05 Eos # (Auto) 0.2 10^3/uL (0.0-0.8) 08/20/22 17:05 Baso # (Auto) 0.0 10^3/uL (0.0-0.1) 08/20/22 17:05 Nucleated RBC % (auto) 0 % 08/20/22 17:05 Nucleated RBCs # 0.0 /100WBC 08/20/22 17:05 ESR 23 mm/hr (0-10) H 08/20/22 17:05 Sodium 144 mmol/L (136-145) 08/20/22 17:05 Potassium 3.2 mmol/L (3.5-5.1) L 08/20/22 17:05 Chloride 102 mmol/L (98-107) 08/20/22 17:05 Carbon Dioxide 30 mmol/L (22-29) H 08/20/22 17:05 Anion Gap 15.2 (5-19) 08/20/22 17:05 BUN 12 mg/dL (6-20) 08/20/22 17:05 Creatinine 0.9 mg/dL (0.7-1.2) 08/20/22 17:05 GFR Calculation 86.7 mL/min (90-130) L 08/20/22 17:05 Glucose 112 mg/dL (65-115) 08/20/22 17:05 Calculated Osmolality 299 mOsm/kg (285-295) H 08/20/22 17:05 Uric Acid 8.8 mg/dL (3.4-7.0) H 08/20/22 17:05 Calcium 9.5 mg/dL (8.5-10.5) 08/20/22 17:05 Total Bilirubin 0.5 mg/dL (0.15-1.2) 08/20/22 17:05 AST 10 U/L (0-40) 08/20/22 17:05 ALT < 5 U/L (0-41) 08/20/22 17:05 Alkaline Phosphatase 69 U/L (40-130) 08/20/22 17:05 C-Reactive Protein 85.4 mg/L (0.0-4.9) H 08/20/22 17:05 Total Protein 7.5 g/dL (6.6-8.7) 08/20/22 17:05 Albumin 3.9 g/dL (3.5-5.2) 08/20/22 17:05 Globulin 3.6 g/dL (1.3-4.6) 08/20/22 17:05 Discharge Plan Discharge Patient Disposition: Home Clinical Impression: Arthralgia Qualifiers: Joint pain location: unspecified Qualified Code(s): M25.50 - Pain in unsp ecified joint Cellulitis Qualifiers: Site of cellulitis: extremity Site of cellulitis of extremity: upper extremity Laterality: left Qualified Code(s): L03.114 - Cellulitis of left upper limb Condition: Stable Prescriptions: New indomethacin 75 mg capsule, extended release 75 mg PO BID Qty: 20 0RF levofloxacin 750 mg tablet 750 mg PO DAILY 10 Days Qty: 10 0RF No Action metoprolol tartrate 50 mg tablet 50 mg PO BID Qty: 60 3RF carbidopa-levodopa 25-250 mg tablet See Rx Instructions .ROUTE .COMPLEX Qty: 180 5RF Rx Instructions: 1 to 1.5 tab po @00:00,1 tab po @06:00,1 to 1.5 tab po @12:00, and 1 tab po 18:00 colchicine 0.6 mg tablet 0.6 mg PO DAILY PRN (Reason: gout) Qty: 90 2RF indomethacin 75 mg capsule, extended release 75 mg PO BID PRN (Reason: Gout/arthritis attacks) Qty: 30 5RF Rx Instructions: Take for 10 to 15 days at a time for arthritic episodes omeprazole 40 mg capsule,delayed release(DR/EC) 40 mg PO QAM Qty: 90 1RF Naprosyn 500 mg tablet 500 mg PO BID PRN (Reason: pain) Qty: 20 0RF aspirin [Adult Low Dose Aspirin] 81 mg tablet,delayed release (DR/EC) 81 mg PO QAM Tylenol Ex Str Rapid Release 500 mg Tablet 1,000 mg PO Q12H Discharge Orders: Discharge ED (Routine); Ordered 08/20/22 Ordered By: Jude Sue Referrals: Wali Moon MD [Primary Care Provider] - Discharge Diet: Regular Discharge Activity: Increase activity as tolerated Activity Restrictions/Additional Instructions: Follow-up with medical provider as directed. Case management should be contacting you in the next several days to set up an appointment with orthopedic doctor for follow-up. Take medications as prescribed. Wear shoulder sling for comfort. Return to the ER or your medical provider if condition worsens. Please read and understand discharge instructions. Thank you for choosing [facility] for your healthcare needs today. Please realize this is an emergency room and that we are providing you with a medical screening exam and this may not be complete and all inclusive of all the testing and or work up that you may need to determine your ailment or severity of your illness. It is very important that you follow up as instructed or that you return to the Emergency Department should you have concerns or if your condition changes or worsens in any way. Sign Out Sign Out Data: Patient Sign Out occurred on 08/20/22 at 17:12. Patient's care was discussed, and care was transferred from to NADEEM Gilbert. Coding Level of Care Code ED Manager Instrumentation for Mu Pressley
--- NOTE | 2022-08-20 15:48 | XRR_ITS ---
PROCEDURE INFORMATION: Exam: XR Left Wrist Exam date and time: 08/20/2022 4:06 PM Age: 57 years old Clinical indication: Pain; Wrist; Left; Patient HX: PT states no injury, swelling, redness, HX og gout, PT unable to straighten arm; Additional info: Pain/swelling TECHNIQUE: Imaging protocol: Radiologic exam of the left wrist. Views: 3 or more views. COMPARISON: CR XR elbow LT min 3V* [id number] 06/04/2022 6:39 AM FINDINGS: Bones/joints: Moderate to severe radiocarpal joint osteoarthritis. Soft tissues: Soft tissue swelling about the wrist. XR/XR wrist LT min 3V* [id number] IMPRESSION: 1. Moderate to severe radiocarpal joint osteoarthritis. 2. Soft tissue swelling about the wrist.
--- NOTE | 2022-08-20 15:48 | USR_ITS ---
PROCEDURE INFORMATION: Exam: US Duplex Left Upper Extremity Veins, Limited Exam date and time: 08/20/2022 4:25 PM Age: 57 years old Clinical indication: Pain; Arm, lower; Left; Additional info: Pain/swelling TECHNIQUE: Imaging protocol: Real-time duplex ultrasound of the left extremity with 2-D olivarez scale, color Doppler flow and spectral waveform analysis including responses to compression and other maneuvers (when performed) with image documentation. Limited exam focused on the left upper extremity veins. COMPARISON: CR XR elbow LT min 3V* [id number] 08/20/2022 4:06 PM FINDINGS: Left deep veins: Unremarkable. Axillary and brachial veins are patent throughout without thrombus. Normal Doppler waveforms. Normal compressibility and/or augmentation response. Visualized internal jugular and subclavian veins are patent. Left superficial veins: Unremarkable. Visualized cephalic and basilic veins are patent without thrombus. Soft tissues: Unremarkable. US/[place] [id number] IMPRESSION: No evidence of deep vein thrombosis.
--- NOTE | 2022-08-20 15:48 | XRR_ITS ---
PROCEDURE INFORMATION: Exam: XR Left Elbow Exam date and time: 08/20/2022 4:06 PM Age: 57 years old Clinical indication: Pain; Elbow; Left; Additional info: Pain/swelling TECHNIQUE: Imaging protocol: Radiologic exam of the left elbow. Views: 3 or more views. COMPARISON: CR XR elbow LT min 3V* [id number] 06/04/2022 6:39 AM FINDINGS: Bones/joints: Severe osteoarthritis of the elbow again seen similar to prior exam. Soft tissues: Normal. XR/XR elbow LT min 3V* [id number] IMPRESSION: Severe osteoarthritis of the elbow again seen similar to prior exam.
[2022-08-20 15:50] VITALS: RESP 16
[2022-08-20] MEDS: morphine 4 mg/mL SDV 1 mL IM ×2 (15:50→17:33)
[2022-08-20 17:33] VITALS: RESP 16
[2022-08-20 17:44] LABS: Basophils % 0.3 %; Eosinophils # 0.2 10^3/uL (0.0-0.8); Eosinophils % 1.2 %; Hematocrit 46.7 % (42.0-52.0); Hemoglobin 15.3 g/dL (11.7-16.6); Lymphocytes # 1.5 10^3/uL (0.8-4.8); Mean Corpuscular HGB Conc 32.8 g/dL (30.0-36.0); Mean Corpuscular Hemoglobin 29.1 pg (28.0-34.0); Monocytes # 1.1 10^3/uL (0.2-0.9); Monocytes % 8.1 %; Neutrophils # 10.66 10^3/uL (1.8-7.7); Neutrophils % 78.9 %; Nucleated Red Blood Cells % 0 %; Platelet Count 280 10^3/cmm (130-400); Red Blood Count 5.25 10^6/uL (4.1-5.3); Red Cell Distribution Width 14.3 % (12.1-15.1); White Blood Count 13.5 10^3/uL (4.0-10.0)
[2022-08-20 17:48] LABS: Erythrocyte Sedimentation Rate 23 mm/hr (0-10)
[2022-08-20 18:06] LABS: Alanine Aminotransferase < 5 U/L (0-41); Albumin Level 3.9 g/dL (3.5-5.2); Alkaline Phosphatase 69 U/L (40-130); Anion Gap 15.2 (5-19); Aspartate Amino Transferase 10 U/L (0-40); Blood Urea Nitrogen 12 mg/dL (6-20); C Reactive Protein 85.4 mg/L (0.0-4.9); Calcium 9.5 mg/dL (8.5-10.5); Carbon Dioxide 30 mmol/L (22-29); Chloride 102 mmol/L (98-107); Globulin 3.6 g/dL (1.3-4.6); Glomerular Filtration Rate 86.7 mL/min (90-130); Glucose 112 mg/dL (65-115); Osmolality Calculated 299 mOsm/kg (285-295); Potassium 3.2 mmol/L (3.5-5.1); Sodium 144 mmol/L (136-145); Total Bilirubin 0.5 mg/dL (0.15-1.2); Total Protein 7.5 g/dL (6.6-8.7); Uric Acid 8.8 mg/dL (3.4-7.0)
[2022-08-20 18:56] VITALS: BP 143/92; PULSE 85; RESP 15; TEMP 36.7; O2SAT 95
--- NOTE | 2022-08-21 09:46 | DCPLANNER ---
Addendum entered by Rosemarie Lechuga 08/30/22 07:48: Patient had a follow up appointment scheduled with ortho - patient did not attend appointment Addendum entered by Rosemarie Lechuga 08/24/22 08:03: Patient has a follow up appointment scheduled for Saturday, August 29, 2022 at 10:[address] Butler at ortho. Clinic will call patient with appointment information. Original Note: infection control manager had message to schedule a follow up appointment for patient with ortho. infection control manager sent patients information to the front office staff at ortho. Patients information will be printed and reviewed. Clinic will call patient with appointment information.
== END 2022-08-20 18:58 | disposition home or self-care (01) ==
PROVIDERS: Physician Assistant; Emergency Provider Physician Assistant; PCP Family Medicine Adult Medicine
DX: L03.114 Cellulitis of left upper limb (principal); M19.022 Primary osteoarthritis, left elbow; Z79.82 Long term (current) use of aspirin; F17.220 Nicotine dependence, chewing tobacco, uncomplicated; I25.10 Atherosclerotic heart disease of native coronary artery without angina pectoris; I10 Essential (primary) hypertension; G20 Parkinson's disease; R22.32 Localized swelling, mass and lump, left upper limb
CPT/HCPCS: 36415; 73080; 73110; 80053; 84550; 85025; 85651; 86140; 87040; 93971; 96372; 99285; J2270

== ENCOUNTER 2022-09-29 19:42 | Emergency (ER) | payer MEDICARE, MEDICAID, SELFPAY ==
[2022-09-29 19:49] VITALS: BP 140/104; PULSE 89; RESP 18; TEMP 36.4; O2SAT 93; BMI 29.9
--- NOTE | 2022-09-29 20:00 | XRR_ITS ---
PROCEDURE INFORMATION: Exam: XR Chest Exam date and time: 09/29/2022 8:30 PM Age: 57 years old Clinical indication: Pain; Chest pressure; Additional info: Cp TECHNIQUE: Imaging protocol: Radiologic exam of the chest. Views: 1 view. COMPARISON: CR XR chest 1V portable [id number] 07/10/2022 12:51 PM FINDINGS: Lungs: Unremarkable. No consolidation. Pleural spaces: Unremarkable. No pleural effusion. No pneumothorax. Heart/Mediastinum: Unremarkable. No cardiomegaly. Bones/joints: Lower cervical fusion is partially assessed. XR/XR chest 1V portable [id number] IMPRESSION: No acute findings.
[2022-09-29 20:03] VITALS: BP 140/104; PULSE 110; RESP 14; O2SAT 100
--- NOTE | 2022-09-29 20:20 | CTR_ITS ---
PROCEDURE INFORMATION: Exam: CT Head Without Contrast Exam date and time: 09/29/2022 9:29 PM Age: 57 years old Clinical indication: Dizziness TECHNIQUE: Imaging protocol: Computed tomography of the head without contrast. Radiation optimization: All CT scans at this facility use at least one of these dose optimization techniques: automated exposure control; mA and/or kV adjustment per patient size (includes targeted exams where dose is matched to clinical indication); or iterative reconstruction. REPORTING DATA: Count of CT and Cardiac NM exams in prior 12 months: This patient has received 3 known CTs and 0 known cardiac nuclear medicine studies in the 12 months prior to the current study. COMPARISON: CT head wo con* [id number] 10/05/2021 10:10 PM RADIATION DOSE METRICS: Total DLP (mGy-cm): 1014.68 FINDINGS: Brain: No focal hemorrhage or midline shift is identified. There is mild atrophy, age-appropriate. Cerebral ventricles: No ventriculomegaly or evidence of acute hydrocephalus. Paranasal sinuses: The partially assessed sinuses are grossly clear. Mastoid air cells: Visualized mastoid air cells are well aerated. Bones/joints: No displaced skull fracture is noted. Soft tissues: Unremarkable. CT/CT head wo con* [id number] IMPRESSION: No acute intracranial abnormality.
[2022-09-29 20:38] LABS: Basophils % 0.3 %; Eosinophils # 0.1 10^3/uL (0.0-0.8); Hematocrit 52.8 % (42.0-52.0); Hemoglobin 17.1 g/dL (11.7-16.6); Lymphocytes # 1.2 10^3/uL (0.8-4.8); Lymphocytes % 10.4 %; Mean Corpuscular HGB Conc 32.4 g/dL (30.0-36.0); Mean Corpuscular Volume 86.6 fl (80-94); Mean Platelet Volume 9.4 fL (7.4-10.4); Monocytes # 0.7 10^3/uL (0.2-0.9); Monocytes % 5.6 %; Neutrophils # 9.66 10^3/uL (1.8-7.7); Neutrophils % 82.1 %; Nucleated Red Blood Cells % 0 %; Platelet Count 318 10^3/cmm (130-400); Red Cell Distribution Width 14.8 % (12.1-15.1); White Blood Count 11.8 10^3/uL (4.0-10.0)
[2022-09-29] MEDS: LORazepam 2 mg/mL INJ 1 mL 1 MG IVP (21:11)
[2022-09-29] MEDS: morphine 4 mg/mL SDV 1 mL IVP (21:11)
[2022-09-29] MEDS: ondansetron 2 mg/ML SDV 2 mL 4 MG IVP (21:11)
[2022-09-29 21:16] LABS: Troponin(5th) Baseline 21 ng/L (0-15)
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
[2022-09-29 21:25] LABS: Alanine Aminotransferase < 5 U/L (0-41); Albumin Level 4.8 g/dL (3.5-5.2); Alkaline Phosphatase 90 U/L (40-130); Anion Gap 16.6 (5-19); Aspartate Amino Transferase 11 U/L (0-40); Blood Urea Nitrogen 17 mg/dL (6-20); Calcium 10.1 mg/dL (8.5-10.5); Carbon Dioxide 27 mmol/L (22-29); Chloride 96 mmol/L (98-107); Globulin 3.6 g/dL (1.3-4.6); Glomerular Filtration Rate 86.7 mL/min (90-130); Glucose 83 mg/dL (65-115); NT Pro B Type Natriuretic Pept 121 pg/mL (0-125); Osmolality Calculated 283 mOsm/kg (285-295); Potassium 3.6 mmol/L (3.5-5.1); Sodium 136 mmol/L (136-145); Total Bilirubin 0.8 mg/dL (0.15-1.2); Total Protein 8.4 g/dL (6.6-8.7)
[2022-09-29 21:30] VITALS: BP 140/104
[2022-09-29 21:58] VITALS: BP 110/76; PULSE 81; RESP 20; O2SAT 94
[2022-09-29 22:00] VITALS: BP 103/74; PULSE 81; RESP 22; O2SAT 92
--- NOTE | 2022-09-29 22:03 | ECG_ITS ---
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 Measurements Intervals [place] Rate: 80 P: 52 GA: 170 QRS: 9 QRSD: 103 T: 34 QT: 390 QTc: 451 Interpretive Statements SINUS RHYTHM MINIMAL VOLTAGE CRITERIA FOR LVH, CONSIDER NORMAL VARIANT [MEETS CRITERIA IN ONE OF: R(aVL), S(V1), R(V5), R(V5/V6)+S(V1)] Compared to ECG 07/10/2022 13:43:52 No significant changes Electronically Signed On 09-30-2022 11:50:02 CDT by Rashad El M.D. [id number]
[2022-09-29 22:30] VITALS: BP 93/74; PULSE 80; RESP 13; O2SAT 94
[2022-09-30 00:38] VITALS: BP 112/70; PULSE 82; RESP 18; O2SAT 94
== END 2022-09-30 00:38 | disposition home or self-care (01) ==
PROVIDERS: Emergency Provider Emergency Medicine; PCP Family Medicine Adult Medicine
DX: R07.9 Chest pain, unspecified (principal); F45.8 Other somatoform disorders; Z79.82 Long term (current) use of aspirin; F17.220 Nicotine dependence, chewing tobacco, uncomplicated; I25.10 Atherosclerotic heart disease of native coronary artery without angina pectoris; I10 Essential (primary) hypertension; G20 Parkinson's disease
CPT/HCPCS: 36415; 70450; 71045; 80053; 83880; 84484; 85025; 93005; 96374; 96375; 99285; J2060; J2270; J2405

== ENCOUNTER 2022-10-02 19:29 | Emergency (ER) | payer MEDICARE, MEDICAID, SELFPAY ==
--- NOTE | 2022-10-02 19:35 | XRR_ITS ---
PROCEDURE INFORMATION: Exam: XR Chest Exam date and time: 10/02/2022 7:53 PM Age: 57 years old Clinical indication: Other: HTN TECHNIQUE: Imaging protocol: Radiologic exam of the chest. Views: 1 view. COMPARISON: CR (CHEST, ) 09/29/2022 8:30 PM FINDINGS: Tubes, catheters and devices: Lower cervical spine surgical fusion device is again noted. Lungs: The lung bases are suboptimally assessed due to technique however the upper lungs are clear of focal consolidation. Pleural spaces: Unremarkable. No pleural effusion. No pneumothorax. Heart/Mediastinum: Cardiac silhouette appears normal in size. No obvious vascular congestion. Bones/joints: No acute osseous findings. Other findings: Single view was submitted. XR/XR chest 1V portable [id number] IMPRESSION: No obvious acute consolidation. Suboptimal lung base assessment. Followup including lateral view may be obtained if clinically indicated.
[2022-10-02 19:48] VITALS: BP 164/101; PULSE 76; RESP 17; TEMP 36.7; O2SAT 97; BMI 28.3
--- NOTE | 2022-10-02 19:59 | CTR_ITS ---
PROCEDURE INFORMATION: Exam: CTA Head Without And With Contrast, Arteriography Exam date and time: 10/02/2022 9:14 PM Age: 57 years old Clinical indication: Headache; Prior surgery; Surgery type: C-spine; Additional info: OCHOA TECHNIQUE: Imaging protocol: Computed tomographic angiography of the head without and with contrast. Exam focused on the arteries. 3D rendering (Not supervised by radiologist): MIP and/or 3D reconstructed images were created by the technologist. Radiation optimization: All CT scans at this facility use at least one of these dose optimization techniques: automated exposure control; mA and/or kV adjustment per patient size (includes targeted exams where dose is matched to clinical indication); or iterative reconstruction. Contrast material: OMNI 350; Contrast volume: 100 ml; Contrast route: INTRAVENOUS (IV); Other technique: STROKE PROTOCOL was implemented. REPORTING DATA: Count of CT and Cardiac NM exams in prior 12 months: This patient has received 4 known CTs and 0 known cardiac nuclear medicine studies in the 12 months prior to the current study. COMPARISON: CT angio headneck* [id number] 10/05/2021 10:14 PM RADIATION DOSE METRICS: Total DLP (mGy-cm): 1217 FINDINGS: ANTERIOR CIRCULATION: Right internal carotid artery: Intracranial segment is patent with no significant stenosis or occlusion. No aneurysm. Right middle cerebral artery: No occlusion or significant stenosis. No aneurysm. Right anterior cerebral artery: Small caliber right A1 segment of the TONY is unchanged which is likely congenital. Left internal carotid artery: Intracranial segment is patent with no significant stenosis. No aneurysm. Left middle cerebral artery: No occlusion or significant stenosis. No aneurysm. Left anterior cerebral artery: No occlusion or significant stenosis. No aneurysm. POSTERIOR CIRCULATION: Right vertebral artery: No occlusion or significant stenosis. No aneurysm. Left vertebral artery: No occlusion or significant stenosis. No aneurysm. Basilar artery: No occlusion or significant stenosis. No aneurysm. Right posterior cerebral artery: No occlusion or significant stenosis. No aneurysm. Left posterior cerebral artery: No occlusion or significant stenosis. No aneurysm. HEAD: Brain: No acute infarct. Stable mild volume loss of the brain. No hemorrhage. Unremarkable white matter. No mass effect. Cerebral ventricles: Normal. No ventriculomegaly. Bones/joints: Unremarkable. No acute fracture. Paranasal sinuses: Visualized sinuses are normal. No fluid levels. Mastoid air cells: Visualized mastoids are normal. No mastoid effusion. Soft tissues: Unremarkable. PROCEDURE INFORMATION: Exam: CTA Neck Without And With Contrast Exam date and time: 10/02/2022 9:14 PM Age: 57 years old Clinical indication: Headache; Prior surgery; Surgery type: C-spine; Additional info: OCHOA TECHNIQUE: Imaging protocol: Computed tomographic angiography of the neck without and with contrast. 3D rendering (Not supervised by radiologist): MIP and/or 3D reconstructed images were created by the technologist. Radiation optimization: All CT scans at this facility use at least one of these dose optimization techniques: automated exposure control; mA and/or kV adjustment per patient size (includes targeted exams where dose is matched to clinical indication); or iterative reconstruction. Contrast material: OMNI 350; Contrast volume: 100 ml; Contrast route: INTRAVENOUS (IV); REPORTING DATA: Count of CT and Cardiac NM exams in prior 12 months: This patient has received 4 known CTs and 0 known cardiac nuclear medicine studies in the 12 months prior to the current study. COMPARISON: CT angio headneck* [id number] 10/05/2021 10:14 PM RADIATION DOSE METRICS: Total DLP (mGy-cm): 1227 FINDINGS: Right common carotid artery: No stenosis. No dissection or occlusion. Right internal carotid artery: No stenosis of the extracranial segment. No dissection or occlusion. Right external carotid artery: No occlusion or stenosis of the origin. Left common carotid artery: No stenosis. No dissection or occlusion. Left internal carotid artery: No stenosis of the extracranial segment. No dissection or occlusion. Left external carotid artery: No occlusion or stenosis of the origin. Right vertebral artery: No stenosis. No dissection or occlusion. Left vertebral artery: No stenosis. No dissection or occlusion. Larynx: Medialized right vocal fold which may reflect paralysis is unchanged. Soft tissues: Normal. No significant soft tissue swelling. Bones/joints: Cervical spinal fusion changes are again present. CT/CT angio headneck* [id number] IMPRESSION: Negative CTA of the head. ASSESSMENT: ASPECTS ([place] Stroke Program Early CT Score) is 10. IMPRESSION: Negative CTA of the neck. REFERENCES: NASCET CRITERIA. The degree of stenosis in the cervical segment of the internal carotid artery is based on NASCET criteria. Normal is no stenosis. Mild is less than 50% stenosis. Moderate is 50-69% stenosis. Severe is 70% to 99% stenosis. Total occlusion is no detectable patent lumen.
--- NOTE | 2022-10-02 20:00 | ECG_ITS ---
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 Measurements Intervals [place] Rate: 70 P: 35 [place]: 162 QRS: -3 QRSD: 87 T: 15 QT: 396 QTc: 429 Interpretive Statements SINUS RHYTHM POSSIBLE LEFT ATRIAL ENLARGEMENT [-0.1mV P-WAVE IN V1/V2] POSSIBLE LEFT VENTRICULAR HYPERTROPHY [VOLTAGE CRITERIA PLUS LAE OR QRS WIDENING] Compared to ECG 09/29/2022 22:03:28 No significant changes Electronically Signed On 10-03-2022 1:43:31 CDT by Rashad El M.D. [id number]
[2022-10-02 20:01] VITALS: PULSE 72; RESP 16; O2SAT 96
[2022-10-02 20:06] VITALS: BP 155/108
--- NOTE | 2022-10-02 20:19 | ED_ITS ---
HPI - General Adult General: Chief complaint: General Medical Stated complaint: high bp, face numbness, OCHOA Time Seen by Provider: 10/02/22 19:51 Source: patient Mode of arrival: ambulatory Limitations: no limitations History of Present Illness: 57-year-old male has a history of chronic hypertension sees. Well-known to the ER he is seen here 3 days ago he been having a headache along with high blood pressure she had a head CT that was normal he states he is continue to have high blood pressures he has not had any med adjustments. He had no chest pain he states he continues to have a mild headache along with some dizziness he denies any one-sided weakness denies any difficulty walking denies any vomiting. Associated symptoms: Reports headache(s); Deny chest pain, dyspnea, nausea, rash or vomiting Review of Systems Const: Denies: fever(s), chills, body aches or change in appetite Eyes: Reports: blurry vision; Denies: eye discomfort ENMT: Denies: throat pain or dental pain Card: Denies: chest pain Resp: Denies: dyspnea GI: Denies: abdominal pain, nausea, vomiting or diarrhea : Denies: dysuria Musc: Denies: neck pain or back pain Skin/Breast: Denies: rash Neuro: Reports: headache(s), dizziness and vertigo Psych: Denies: depression [place]/Lymph: Denies: easy bruising All/Imm: Denies: urticaria PFSH ED PFSH: Medical History Anxiety and depression CAD (coronary artery disease) Chronic right shoulder pain DDD (degenerative disc disease) Decreased glomerular filtration rate (GFR) Eustachian tube dysfunction GERD (gastroesophageal reflux disease) Gout Hearing loss Hypertension Knee pain, right Migraines Osteoarthritis Parkinsons disease Pre-procedural examination Surgical History History of back surgery x6 different surgeries on the spine Family History Father Stroke Heart attack Brother Hypertension Sister Heart attack Social History Smoking and tobacco status: current every day smoker (chewing) smokeless tobacco Smokeless tobacco user: chewing tobacco Alcohol intake: former Desire information about alcohol rehabilitation?: No Desire information about substance/drug rehabilitation?: No Caregiver/support person: No Lives independently: Yes Household members: none Marital status: Single Highest education level completed: Some College, No Degree service: No Current occupational status: retired and disabled Current gender identity: Male Physical Exam Const: COMMON NORMALS: no acute distress, patient oriented x3 and healthy appearing HENMT: COMMON NORMALS: normocephalic and atraumatic HEAD & SCALP: normocephalic and atraumatic Eye: COMMON NORMALS: Equal, round and reactive pupils present and EOMs intact bilaterally PUPIL: Yes Equal, round and reactive pupils present Neck/C-Spine: COMMON NORMALS: full ROM and supple Chest: COMMONS NORMALS: normal inspection of the chest and normal palpation of entire chest wall Resp: COMMON NORMALS: normal respiratory effort, No retractions, No use of accessory muscles and clear to auscultation bilaterally AUSCULTATION: clear to auscultation bilaterally Cardio: COMMON NORMALS: regular rate, regular rhythm and No murmurs present (Cardio) RATE: regular rate RHYTHM: regular rhythm GI: COMMON NORMALS: Normal to inspection, nondistended, normoactive bowel sounds present, Soft to palpation, non-tender and no masses PALPATION: Yes Soft to palpation Extremity: COMMON NORMALS: normal to inspection and full ROM Neuro: COMMON NORMALS: patient oriented x3, moves all extremities and no focal motor deficits Psych: COMMON NORMALS: mental status grossly normal, Normal thought process present and cooperative THOUGHT PROCESS: Normal thought process present Skin: COMMON NORMALS: no rashes or lesions noted and no wounds GENERAL SKIN EXAM: no rashes or lesions noted Course Vital Signs: Vital signs: Vital Signs Temperature 98.1 F 10/02/22 19:48 Pulse Rate 70 10/02/22 22:10 Respiratory Rate 19 H 10/02/22 22:10 Blood Pressure 137/99 10/02/22 22:10 Pulse Oximetry 97 10/02/22 22:10 Oxygen Delivery Me thod Room Air 10/02/22 19:48 MDM - General Adult Medical Decision Making Patient presents with hypertension along with slight headache he has had some vertigo he has no signs of a stroke he is able ambulate without any difficulty no signs of posterior stroke CTA is normal here he had a CT head here normal 3 days ago. His blood pressure has improved we will increase his metoprolol dose he is to follow-up with PCP and return if worsening he understands agrees to plan. Medical Records I reviewed the patient's medical records. Lab Data I reviewed the patient's lab results. 10/02/22 20:25 10/02/22 20:25 Radiology Impressions Chest X-Ray 10/02/22 19:35 IMPRESSION: No obvious acute consolidation. Suboptimal lung base assessment. Followup including lateral view may be obtained if clinically indicated. Head/Neck CTA 10/02/22 19:59 IMPRESSION: Negative CTA of the head. ASSESSMENT: ASPECTS ([place] Stroke Program Early CT Score) is 10. IMPRESSION: Negative CTA of the neck. REFERENCES: NASCET CRITERIA. The degree of stenosis in the cervical segment of the internal carotid artery is based on NASCET criteria. Normal is no stenosis. Mild is less than 50% stenosis. Moderate is 50-69% stenosis. Severe is 70% to 99% stenosis. Total occlusion is no detectable patent lumen. Laboratory Results WBC 6.9 10^3/uL (4.0-10.0) 10/02/22 20:25 RBC 5.66 10^6/uL (4.1-5.3) H 10/02/22 20:25 Hgb 15.9 g/dL (11.7-16.6) 10/02/22 20:25 Hct 48.9 % (42.0-52.0) 10/02/22 20:25 MCV 86.4 fl (80-94) 10/02/22 20:25 MCH 28.1 pg (28.0-34.0) 10/02/22 20:25 MCHC 32.5 g/dL (30.0-36.0) 10/02/22 20:25 RDW 14.2 % (12.1-15.1) 10/02/22 20:25 Plt Count 268 10^3/cmm (130-400) 10/02/22 20:25 MPV 9.4 fL (7.4-10.4) 10/02/22 20:25 Neut % (Auto) 64.3 % 10/02/22 20:25 Lymph % (Auto) 24.8 % 10/02/22 20:25 [place] % (Auto) 8.3 % 10/02/22 20:25 Eos % (Auto) 1.7 % 10/02/22 20:25 Baso % (Auto) 0.6 % 10/02/22 20:25 Neut # (Auto) 4.44 10^3/uL (1.8-7.7) 10/02/22 20:25 Lymph # (Auto) 1.7 10^3/uL (0.8-4.8) 10/02/22 20:25 [place] # (Auto) 0.6 10^3/uL (0.2-0.9) 10/02/22 20:25 Eos # (Auto) 0.1 10^3/uL (0.0-0.8) 10/02/22 20:25 Baso # (Auto) 0.0 10^3/uL (0.0-0.1) 10/02/22 20:25 Nucleated RBC % (auto) 0 % 10/02/22 20: Nucleated RBCs # 0.0 /100WBC 10/02/22 20:25 Sodium 136 mmol/L (136-145) 10/02/22 20:25 Potassium 3.6 mmol/L (3.5-5.1) 10/02/22 20:25 Chloride 96 mmol/L (98-107) L 10/02/22 20:25 Carbon Dioxide 24 mmol/L (22-29) 10/02/22 20:25 Anion Gap 19.6 (5-19) H 10/02/22 20:25 BUN 19 mg/dL (6-20) 10/02/22 20:25 Creatinine 0.8 mg/dL (0.7-1.2) 10/02/22 20:25 GFR Calculation 99.3 mL/min (90-130) 10/02/22 20:25 Glucose 65 mg/dL (65-115) 10/02/22 20:25 Calculated Osmolality 282 mOsm/kg (285-295) L 10/02/22 20:25 Calcium 9.2 mg/dL (8.5-10.5) 10/02/22 20:25 Total Bilirubin 0.7 mg/dL (0.15-1.2) 10/02/22 20:25 AST 11 U/L (0-40) 10/02/22 20:25 ALT < 5 U/L (0-41) 10/02/22 20:25 Alkaline Phosphatase 68 U/L (40-130) 10/02/22 20:25 Total Protein 7.4 g/dL (6.6-8.7) 10/02/22 20:25 Albumin 3.7 g/dL (3.5-5.2) 10/02/22 20:25 Globulin 3.7 g/dL (1.3-4.6) 10/02/22 20:25 EKG Data EKG 1: I personally reviewed and interpreted this EKG as follows: EKG interpretation date: 10/02/22 EKG interpretation time: 20:00 Interpretation: nsr hr [address] or t wave abnormalities qrs 87 qtc 417 Computer generated interpretation: Chest X-Ray 10/02/22 19:35 IMPRESSION: No obvious acute consolidation. Suboptimal lung base assessment. Followup including lateral view may be obtained if clinically indicated. Head/Neck CTA 10/02/22 19:59 IMPRESSION: Negative CTA of the head. ASSESSMENT: ASPECTS ([place] Stroke Program Early CT Score) is 10. IMPRESSION: Negative CTA of the neck. REFERENCES: NASCET CRITERIA. The degree of stenosis in the cervical segment of the internal carotid artery is based on NASCET criteria. Normal is no stenosis. Mild is less than 50% stenosis. Moderate is 50-69% stenosis. Severe is 70% to 99% stenosis. Total occlusion is no detectable patent lumen. Discharge Plan Discharge Patient Disposition: Home Clinical Impression: Hypertension, Headache, Dizziness Condition: Stable Prescriptions: New Antivert 50 mg tablet 50 mg PO BID PRN (Reason: dizziness) Qty: 30 0RF metoprolol tartrate 100 mg tablet 100 mg PO BID Qty: 60 0RF Discontinued metoprolol tartrate 50 mg tablet 50 mg PO BID Qty: 60 3RF No Action carbidopa-levodopa 25-250 mg tablet See Rx Instructions .ROUTE .COMPLEX Qty: 180 5RF Rx Instructions: 1 to 1.5 tab po @00:00,1 tab po @06:00,1 to 1.5 tab po @12:00, and 1 tab po 18:00 colchicine 0.6 mg tablet 0.6 mg PO DAILY PRN (Reason: gout) Qty: 90 2RF omeprazole 40 mg capsule,delayed release(DR/EC) 40 mg PO QAM Qty: 90 1RF ondansetron 4 mg tablet,disintegrating 4 mg PO Q8H PRN (Reason: nausea and vomiting) Qty: 30 5RF carbidopa 25 mg tablet 25 mg PO Q6H Qty: 120 5RF Rx Instructions: take with each carbidopa/levodopa tab doses indomethacin 75 mg capsule, extended release 75 mg PO BID PRN (Reason: Gout/arthritis attacks) Qty: 30 5RF Rx Instructions: Take for 10 to 15 days at a time for arthritic episodes Naprosyn 500 mg tablet 500 mg PO BID PRN (Reason: pain) Qty: 20 0RF aspirin [Adult Low Dose Aspirin] 81 mg tablet,delayed release (DR/EC) 81 mg PO QAM Tylenol Ex Str Rapid Release 500 mg Tablet 1,000 mg PO Q12H Discharge Orders: Discharge ED (Routine); Ordered 10/02/22 Ordered By: Heidi Abreu Referrals: Wali Moon MD [Primary Care Provider] - 1-3 days Discharge Diet: Advance as tolerated Discharge Activity: Resume usual activity Patient Instructions: Hypertension (ED), Dizziness (ED) Coding Level of Care Code ED Civil Engineering Manager for Mu Pressley NIH stroke score NIHSS Level Of Consciousness - 1a: 0 Level Of Consciousness Questions - 1b: Both Correct Level Of Consciousness Commands - 1c: Both Correct Best Gaze - 2: Normal Visual [place] - 3: No Visual Loss Facial Palsy - 4: Normal Motor Arm Right - 5: No Drift Motor Arm Left - 5: No Drift Motor Leg Right - 6: No Drift Motor Leg Left - 6: No Drift Limb Ataxia - 7: Absent Sensory - 8: Normal Best Language - 9: No Aphasia Dysarthia - 10: Normal Extinction And Inattention - 11: 0 Score Total Score: 0
[2022-10-02] MEDS: meclizine 25 mg tablet 50 MG PO (20:36)
[2022-10-02 20:38] LABS: Basophils % 0.6 %; Eosinophils # 0.1 10^3/uL (0.0-0.8); Eosinophils % 1.7 %; Hematocrit 48.9 % (42.0-52.0); Hemoglobin 15.9 g/dL (11.7-16.6); Lymphocytes # 1.7 10^3/uL (0.8-4.8); Lymphocytes % 24.8 %; Mean Corpuscular HGB Conc 32.5 g/dL (30.0-36.0); Mean Corpuscular Hemoglobin 28.1 pg (28.0-34.0); Mean Corpuscular Volume 86.4 fl (80-94); Mean Platelet Volume 9.4 fL (7.4-10.4); Monocytes # 0.6 10^3/uL (0.2-0.9); Monocytes % 8.3 %; Neutrophils # 4.44 10^3/uL (1.8-7.7); Neutrophils % 64.3 %; Nucleated Red Blood Cells % 0 %; Platelet Count 268 10^3/cmm (130-400); Red Blood Count 5.66 10^6/uL (4.1-5.3); Red Cell Distribution Width 14.2 % (12.1-15.1); White Blood Count 6.9 10^3/uL (4.0-10.0)
[2022-10-02 20:56] LABS: Alanine Aminotransferase < 5 U/L (0-41); Albumin Level 3.7 g/dL (3.5-5.2); Alkaline Phosphatase 68 U/L (40-130); Anion Gap 19.6 (5-19); Aspartate Amino Transferase 11 U/L (0-40); Blood Urea Nitrogen 19 mg/dL (6-20); Calcium 9.2 mg/dL (8.5-10.5); Carbon Dioxide 24 mmol/L (22-29); Chloride 96 mmol/L (98-107); Creatinine Clr Calc Pharmacy 96.4417; Globulin 3.7 g/dL (1.3-4.6); Glomerular Filtration Rate 99.3 mL/min (90-130); Glucose 65 mg/dL (65-115); Osmolality Calculated 282 mOsm/kg (285-295); Potassium 3.6 mmol/L (3.5-5.1); Sodium 136 mmol/L (136-145); Total Bilirubin 0.7 mg/dL (0.15-1.2); Total Protein 7.4 g/dL (6.6-8.7)
[2022-10-02] MEDS: iohexol 350 mg/mL 500 mL Btl (per mL) IV (21:24)
[2022-10-02 22:03] VITALS: BP 137/93; PULSE 67; RESP 12; O2SAT 97
[2022-10-02] MEDS: metoclopramide 5 mg/mL SDV 2 mL IVP (22:07)
[2022-10-02] MEDS: diphenhydrAMINE 50 mg/mL SDV 1mL 25 MG IVP (22:07)
[2022-10-02 22:10] VITALS: BP 137/99; PULSE 70; RESP 19; O2SAT 97
== END 2022-10-02 22:18 | disposition home or self-care (01) ==
PROVIDERS: Emergency Provider Emergency Medicine; PCP Family Medicine Adult Medicine
DX: R51.9 Headache, unspecified (principal); I10 Essential (primary) hypertension; R42 Dizziness and giddiness; Z79.82 Long term (current) use of aspirin; F17.220 Nicotine dependence, chewing tobacco, uncomplicated; I25.10 Atherosclerotic heart disease of native coronary artery without angina pectoris; G20 Parkinson's disease
CPT/HCPCS: 70496; 70498; 71045; 80053; 85025; 93005; 96374; 96375; 99285; J1200; J2765; J8597; Q9967

== ENCOUNTER → 2022-10-08 12:47 | Outpatient (BNVA) | payer MEDICARE, MEDICAID, SELFPAY | PROVIDERS: PCP Family Medicine Adult Medicine; Visit Provider Nurse Practitioner Family | DX: I25.10 Atherosclerotic heart disease of native coronary artery without angina pectoris (principal); I10 Essential (primary) hypertension; F17.220 Nicotine dependence, chewing tobacco, uncomplicated; Z79.82 Long term (current) use of aspirin | CPT/HCPCS: 99214 ==

== ENCOUNTER 2022-10-30 21:24 | Inpatient (IN) | payer MEDICARE, MEDICAID, SELFPAY ==
[2022-10-30] VITALS (8 sets, daily range): BP systolic 136–152; BP diastolic 83–95; PULSE 90–93; RESP 18; TEMP 37.7; O2SAT 96–99; BMI 28.3
--- NOTE | 2022-10-30 21:41 | XRR_ITS ---
PROCEDURE INFORMATION: Exam: XR Chest Exam date and time: 10/30/2022 9:52 PM Age: 57 years old Clinical indication: Fever TECHNIQUE: Imaging protocol: Radiologic exam of the chest. Views: 1 view. COMPARISON: CR (CHEST, ) 10/02/2022 7:53 PM FINDINGS: Lungs: Unremarkable. No consolidation. Pleural spaces: Unremarkable. No pleural effusion. No pneumothorax. Heart/Mediastinum: Unremarkable. No cardiomegaly. Bones/joints: Unremarkable. XR/XR chest 1V portable [id number] IMPRESSION: No acute findings.
[2022-10-30] MEDS: sodium chloride 0.9% 1,000 ML 999 ML IV ×2 (21:54→23:09)
[2022-10-30] MEDS: ondansetron 2 mg/ML SDV 2 mL 4 MG IVP (21:54)
[2022-10-30] MEDS: HYDROmorphone 1 mg/mL INJ 1 mL IVP ×2 (21:54→23:17)
--- NOTE | 2022-10-30 21:56 | ED_ITS ---
HPI - Back Pain/Injury General: Chief Complaint: Extremity Problem,Nontraumatic Stated Complaint: Leg side pain Time Seen by Provider: 10/30/22 21:33 Source: patient and EMS Mode of arrival: EMS Limitations: no limitations History of Present Illness: 57-year-old male states he had history of gout before he states started having some left ankle pain 3 days ago states it got much worse today its been warm to touch and feels like his gout has previously states he did take some colchicine today states pain is shooting up his leg and down into his back he denies any specific back pain he states he feels like is all coming from his ankle he states that he is unable to ambulate due to the severe pain of the ankle he states he does not have any pain meds at home. He was febrile with EMS is a low-grade fever here no vomiting no cough. Associated symptoms: Reports chills and fever(s); Deny abdominal pain, dysuria, nausea or vomiting Review of Systems Const: Reports: fever(s) and chills; Denies: body aches Eyes: Denies: blurry vision or eye discomfort ENMT: Denies: throat pain or dental pain Card: Denies: chest pain Resp: Denies: dyspnea GI: Denies: abdominal pain, nausea, vomiting or diarrhea : Denies: dysuria Musc: Reports: back pain and extremity pain; Denies: neck pain Skin/Breast: Reports: erythema PFSH ED PFSH: Medical History Anxiety and depression CAD (coronary artery disease) Chewing tobacco nicotine dependence Age [age] (currently) Chronic right shoulder pain DDD (degenerative disc disease) Decreased glomerular filtration rate (GFR) Eustachian tube dysfunction GERD (gastroesophageal reflux disease) Gout Hearing loss Hypertension Knee pain, right Migraines Osteoarthritis Parkinsons disease Polyp of esophagus Polyp of tongue Pre-procedural examination Surgical History History of back surgery x6 different surgeries on the spine Family History Father Stroke Heart attack Brother Hypertension Sister Heart attack Social History Smoking and tobacco status: current every day smoker (chewing) smokeless tobacco Smokeless tobacco user: chewing tobacco Alcohol intake: former Desire information about alcohol rehabilitation?: No Substance/Drug Use: current Substance/Drug use frequency: other Other substance/drug use details: medical marijuana Desire information about substance/drug rehabilitation?: No Caregiver/support person: No Lives independently: Yes Household members: none Marital status: Single Highest education level completed: Some College, No Degree service: No Current occupational status: retired and disabled Do you think of yourself as: Straight/Heterosexual Current gender identity: Male Physical Exam Const: COMMON NORMALS: no acute distress, patient oriented x3 and healthy appearing HENMT: COMMON NORMALS: normocephalic and atraumatic HEAD & SCALP: normocephalic and atraumatic Eye: COMMON NORMALS: conjunctivae normal CONJUNCTIVA: Yes conjunctivae normal Neck/C-Spine: COMMON NORMALS: full ROM and supple Chest: COMMONS NORMALS: normal inspection of the chest Resp: COMMON NORMALS: normal respiratory effort, No retractions, No use of accessory muscles and clear to auscultation bilaterally AUSCULTATION: clear to auscultation bilaterally Cardio: COMMON NORMALS: regular rate, regular rhythm and No murmurs present (Cardio) RATE: regular rate RHYTHM: regular rhythm GI: COMMON NORMALS: Normal to inspection, nondistended, normoactive bowel sounds present, Soft to palpation, non-tender and no masses PALPATION: Yes Soft to palpation Back/Pelvis: OTHER: No midline spinal tenderness some slight tenderness to the left lower back Extremity: COMMON NORMALS: full ROM NARRATIVE EXTREMITY EXAM: Erythema to left medial ankle not exquisitely warm to touch is extremely tender to touch. Neuro: COMMON NORMALS: patient oriented x3, moves all extremities and no focal motor deficits Psych: COMMON NORMALS: mental status grossly normal, Normal thought process present and cooperative THOUGHT PROCESS: Normal thought process present Skin: COMMON NORMALS: no rashes or lesions noted and no wounds GENERAL SKIN EXAM: no rashes or lesions noted Procedures Joint Aspiration/Injection Joint Asp./Inject. 1: Time Out Performed: Yes Side of body: right Joint Aspirated: ankle Ultrasound Guidance: Yes Skin Prep: Povidone-Iodine1% Local Anesthetic: lidocaine 1% Amount of anesthesia used (mL): 6 Needle Size Used: 18G Complications: unable to obtain fluid Course Vital Signs: Vital signs: Vital Signs Temperature 99.9 F H 10/30/22 21:34 Pulse Rate 90 10/30/22 23:56 Respiratory Rate 18 10/30/22 23:17 Blood Pressure 136/85 10/30/22 23:56 Pulse Oximetry 99 10/30/22 23:56 Oxygen Delivery Me thod Nasal Cannula 10/30/22 23:56 Oxygen Flow Rate 2 10/30/22 23:56 MDM - Back Pain/Injury Medical Decision Making Patient presents with left ankle pain along with fever he does have some elevated inflammatory markers he does have a long history of gout this is likely gout I did attempt an arthrocentesis was unable to collect any fluid spoke to morning babysitter Dr. Burkett who recommended admission to follow and he is can attempt a arthrocentesis in the morning to rule out a septic joint we will hold off antibiotics at this time and continue to treat his pain. Labs 10/30/22 21:50 10/30/22 21:50 Radiology Impressions Chest X-Ray 10/30/22 21:41 IMPRESSION: No acute findings. Ankle X-Ray 10/30/22 22:16 IMPRESSION: 1. Negative for acute bony abnormality. 2. Os trigonum, a normal variant. 3. Soft tissue swelling about the ankle, nonspecific. Laboratory Results WBC 11.9 10^3/uL (4.0-10.0) H 10/30/22 21:50 RBC 5.38 10^6/uL (4.1-5.3) H 10/30/22 21:50 Hgb 15.2 g/dL (11.7-16.6) 10/30/22 21:50 Hct 46.3 % (42.0-52.0) 10/30/22 21:50 MCV 86.1 fl (80-94) 10/30/22 21:50 MCH 28.3 pg (28.0-34.0) 10/30/22 21:50 MCHC 32.8 g/dL (30.0-36.0) 10/30/22 21:50 RDW 15.2 % (12.1-15.1) H 10/30/22 21:50 Plt Count 245 10^3/cmm (130-400) 10/30/22 21:50 MPV 9.2 fL (7.4-10.4) 10/30/22 21:50 Neut % (Auto) 75.0 % 10/30/22 21:50 Lymph % (Auto) 13.8 % 10/30/22 21:50 [place] % (Auto) 9.7 % 10/30/22 21:50 Eos % (Auto) 0.5 % 10/30/22 21:50 Baso % (Auto) 0.3 % 10/30/22 21:50 Neut # (Auto) 8.93 10^3/uL (1.8-7.7) H 10/30/22 21:50 Lymph # (Auto) 1.6 10^3/uL (0.8-4.8) 10/30/22 21:50 [place] # (Auto) 1.2 10^3/uL (0.2-0.9) H 10/30/22 21:50 Eos # (Auto) 0.1 10^3/uL (0.0-0.8) 10/30/22 21:50 Baso # (Auto) 0.0 10^3/uL (0.0-0.1) 10/30/22 21:50 Nucleated RBC % (auto) 0 % 10/30/22 21:50 Nucleated RBCs # 0.0 /100WBC 10/30/22 21:50 ESR 50 mm/hr (0-10) H 10/30/22 21:50 Sodium 133 mmol/L (136-145) L 10/30/22 21:50 Potassium 3.7 mmol/L (3.5-5.1) 10/30/22 21:50 Chloride 93 mmol/L (98-107) L 10/30/22 21:50 Carbon Dioxide 25 mmol/L (22-29) 10/30/22 21:50 Anion Gap 18.7 (5-19) 10/30/22 21:50 BUN 17 mg/dL (6-20) 10/30/22 21:50 Creatinine 0.9 mg/dL (0.7-1.2) 10/30/22 21:50 GFR Calculation 86.7 mL/min (90-130) L 10/30/22 21:50 Glucose 81 mg/dL (65-115) 10/30/22 21:50 Calculated Osmolality 277 mOsm/kg (285-295) L 10/30/22 21:50 Lactic Acid 1.5 mmol/L (0.5-2.2) 10/30/22 21:50 Calcium 9.1 mg/dL (8.5-10.5) 10/30/22 21:50 Total Bilirubin 1.1 mg/dL (0.15-1.2) 10/30/22 21:50 AST 11 U/L (0-40) 10/30/22 21:50 ALT < 5 U/L (0-41) 10/30/22 21:50 Alkaline Phosphatase 68 U/L (40-130) 10/30/22 21:50 C-Reactive Protein 219.0 mg/L (0.0-4.9) H 10/30/22 21:50 Total Protein 7.8 g/dL (6.6-8.7) 10/30/22 21:50 Albumin 4.0 g/dL (3.5-5.2) 10/30/22 21:50 Globulin 3.8 g/dL (1.3-4.6) 10/30/22 21:50 Urine Color Yellow (Yellow) 10/30/22 22:30 Urine Appearance Clear (CLEAR) 10/30/22 22:30 Urine pH 5 (5-7) 10/30/22 22:30 Ur Specific [place] 1.015 (1.005-1.030) 10/30/22 22:30 Urine Protein Neg (Negative) 10/30/22 22:30 Urine Glucose (UA) Norm (Normal) 10/30/22 22:30 Urine Ketones 1+ (Negative) H 10/30/22 22:30 Urine Blood 3+ (Negative) H 10/30/22 22:30 Urine Nitrate Negative (Negative) 10/30/22 22:30 Urine Bilirubin Neg (Negative) 10/30/22 22:30 Urine Urobilinogen Norm mg/dL (Negative) 10/30/22 22:30 Ur Leukocyte Esterase Negative (Negative) 10/30/22 22:30 Urine RBC 0-4 /hpf (0-2) H 10/30/22 22:30 Urine WBC None /hpf (0-5) 10/30/22 22:30 Ur Squamous Epith Cells None /hpf (0-5) 10/30/22 22:30 Amorphous Sediment Not Reportable 10/30/22 22:30 Urine Bacteria Trace /hpf (NONE) 10/30/22 22:30 Hyaline Casts Rare /lpf 10/30/22 22:30 Urine Mucus Trace /hpf 10/30/22 22:30 Discharge Plan Discharge Condition: Stable Prescriptions: No Action carbidopa-levodopa 25-250 mg tablet See Rx Instructions .ROUTE .COMPLEX Qty: 180 5RF Rx Instructions: 1 to 1.5 tab po @00:00,1 tab po @06:00,1 to 1.5 tab po @12:00, and 1 tab po 18:00 colchicine 0.6 mg tablet 0.6 mg PO DAILY PRN (Reason: gout) Qty: 90 2RF omeprazole 40 mg capsule,delayed release(DR/EC) 40 mg PO QAM Qty: 90 1RF ondansetron 4 mg tablet,disintegrating 4 mg PO Q8H PRN (Reason: nausea and vomiting) Qty: 30 5RF carbidopa 25 mg tablet 25 mg PO Q6H Qty: 120 5RF Rx Instructions: take with each carbidopa/levodopa tab doses metoprolol tartrate 50 mg tablet 75 mg PO BID Qty: 180 4RF indomethacin 75 mg capsule, extended release 75 mg PO BID PRN (Reason: Gout/arthritis attacks) Qty: 30 5RF Rx Instructions: Take for 10 to 15 days at a time for arthritic episodes aspirin [Adult Low Dose Aspirin] 81 mg tablet,delayed release (DR/EC) 81 mg PO QAM Tylenol Ex Str Rapid Release 500 mg Tablet 1,000 mg PO Q12H Referrals: Wali Moon MD [Primary Care Provider] - Coding Level of Care Code ED Tubing Machine Operator for Mu Pressley
[2022-10-30 21:59] LABS: Basophils % 0.3 %; Eosinophils # 0.1 10^3/uL (0.0-0.8); Eosinophils % 0.5 %; Hematocrit 46.3 % (42.0-52.0); Hemoglobin 15.2 g/dL (11.7-16.6); Lymphocytes # 1.6 10^3/uL (0.8-4.8); Lymphocytes % 13.8 %; Mean Corpuscular HGB Conc 32.8 g/dL (30.0-36.0); Mean Corpuscular Hemoglobin 28.3 pg (28.0-34.0); Mean Corpuscular Volume 86.1 fl (80-94); Mean Platelet Volume 9.2 fL (7.4-10.4); Monocytes # 1.2 10^3/uL (0.2-0.9); Monocytes % 9.7 %; Neutrophils # 8.93 10^3/uL (1.8-7.7); Nucleated Red Blood Cells % 0 %; Platelet Count 245 10^3/cmm (130-400); Red Blood Count 5.38 10^6/uL (4.1-5.3); Red Cell Distribution Width 15.2 % (12.1-15.1); White Blood Count 11.9 10^3/uL (4.0-10.0)
[2022-10-30 22:12] LABS: Erythrocyte Sedimentation Rate 50 mm/hr (0-10)
--- NOTE | 2022-10-30 22:16 | XRR_ITS ---
PROCEDURE INFORMATION: Exam: XR Left Ankle Exam date and time: 10/30/2022 10:21 PM Age: 57 years old Clinical indication: Pain; Ankle; Left TECHNIQUE: Imaging protocol: Radiologic exam of the left ankle. Views: 3 or more views. COMPARISON: No relevant prior studies available. FINDINGS: Bones/joints: Os trigonum, a normal variant. Soft tissues: Soft tissue swelling about the ankle, nonspecific. XR/XR ankle LT min 3V* [id number] IMPRESSION: 1. Negative for acute bony abnormality. 2. Os trigonum, a normal variant. 3. Soft tissue swelling about the ankle, nonspecific.
[2022-10-30 22:17] LABS: Alanine Aminotransferase < 5 U/L (0-41); Alkaline Phosphatase 68 U/L (40-130); Anion Gap 18.7 (5-19); Aspartate Amino Transferase 11 U/L (0-40); Blood Urea Nitrogen 17 mg/dL (6-20); Calcium 9.1 mg/dL (8.5-10.5); Carbon Dioxide 25 mmol/L (22-29); Chloride 93 mmol/L (98-107); Globulin 3.8 g/dL (1.3-4.6); Glomerular Filtration Rate 86.7 mL/min (90-130); Glucose 81 mg/dL (65-115); Lactic Sepsis W/Reflex 1.5 mmol/L (0.5-2.2); Osmolality Calculated 277 mOsm/kg (285-295); Potassium 3.7 mmol/L (3.5-5.1); Sodium 133 mmol/L (136-145); Total Bilirubin 1.1 mg/dL (0.15-1.2); Total Protein 7.8 g/dL (6.6-8.7)
[2022-10-30 23:57] LABS: Bilirubin Urine Neg (Negative); Blood Urine 3+ (Negative); Glucose Urine UA Norm (Normal); Ketones Urine 1+ (Negative); Leukocyte Esterase Urine Negative (Negative); Nitrate Urine Negative (Negative); Protein Urine Neg (Negative); Specific Gravity, Urine 1.015 (1.005-1.030); Urine Appearance Clear (CLEAR); Urine Color Yellow (Yellow); Urobilinogen Urine Norm (Negative); pH Urine 5 (5-7)
[2022-10-30 23:58] LABS: Add Urine Microscopic? YES; Bacteria Urine TRACE /hpf; Hyaline Casts Urine RARE /lpf; Mucus Urine TRACE /hpf; RBC Urine 0-4 /hpf (0-2)
[2022-10-30 23:59] LABS: Add Urine Culture? No
[2022-10-31] VITALS (11 sets, daily range): BP systolic 104–163; BP diastolic 58–90; PULSE 87–98; RESP 16–18; TEMP 36.4–37.8; O2SAT 90–95; BMI 31.6
[2022-10-31] MEDS: HYDROmorphone 1 mg/mL INJ 1 mL 2 MG IVP (02:37)
--- NOTE | 2022-10-31 06:43 | P.HP_ITS ---
Providers/Chief Complaint Admitting Physician: Aileen Carvalho MD Primary Care Provider: Wali Moon MD Chief Complaint: Leg side pain History of Present Illness Jude Burden is a 57 year old male with a past medical history of Parkinson's disease, gout, presenting to the hospital with acute swelling of the left ankle which started on Saturday (today is Saturday night). Patient was in his usual state of health prior to this. He started to experience fever, chills, pain and swelling of the left ankle quite suddenly. He started taking colchicine just yesterday. Did not have any significant improvement. Came into the ER when he was unable to bear any weight. Aspiration of the ankle joint was attempted in the ER due to concern for possible septic process, however this attempt was unsuccessful. There is no history of recent trauma Patient does not typically take any allopurinol or Uloric to prevent gout attacks as he reports allergies to these medications. He has a past medical history of septic arthritis of the right ankle joint in 2014 which was treated in [place]. He is uncertain of which organism was identified at that time. Unclear why patient had a septic joint at that time, states that this was diagnosed with a joint aspirate. He received IV antibiotic s for about 1 month, states he developed acute renal failure as a complication, does not recall which antibiotic he received at that time. Needed to be on dialysis for 4 months afterwards. No history of STDs. Has a history of skin grafting to the left lower extremity several years ago after a lawnmower accident. No underlying hardware at the ankle. He does have bilateral knee replacement and hip replacements. No swelling or tenderness at these joints at this present time. Review of Systems General: Reports: 10 or more systems reviewed and unremarkable except in HPI and below Const: Denies: fever(s), chills or body aches Eyes: Denies: change in vision, blurry vision or photophobia ENMT: Reports: hoarseness; Denies: throat pain, enlarged tonsils, odynophagia or nasal congestion Card: Denies: chest pain, palpitations, irregular heart rhythm, edema, swelling of feet/ankles, lightheadedness, pre-syncope, dyspnea on exertion or orthopnea Resp: Denies: dyspnea, productive cough, non-productive cough, wheezing, stridor, pain on inspiration, change in phlegm color, hemoptysis or chest congestion GI: Denies: abdominal pain, nausea, vomiting, hematemesis, coffee ground emesis, dysphagia, heartburn, diarrhea, constipation, GI cramping, change in stool character, hematochezia or melena : Denies: flank pain, dysuria, urinary frequency, urinary urgency, urinary hesitancy or hematuria Musc: Denies: neck pain, back pain, extremity pain, joint swelling, joint warmth or deformity Neuro: Denies: headache(s), numbness in extremities, weakness in extremities, sensory changes, difficulty walking, frequent falls, dizziness, vertigo, behav ioral changes, Slurred speech present or seizure-like activity Psych: Denies: anxiety, depression, suicidal ideation or homicidal ideation Endo: Denies: polyuria, polydipsia, tired all the time, cold intolerance or hot flashes [place]/Lymph: Denies: easy bruising or easy bleeding Medications/Allergies Home Medications Medication Instructions Recorded Confirmed Last Taken Type aspirin 81 mg tablet,delayed 81 mg PO QAM 05/01/22 10/11/22 06/04/22 06:00 History release (Adult Low Dose Aspirin) acetaminophen 500 mg tablet 1,000 mg PO Q12H 06/04/22 10/11/22 06/04/22 06:00 History carbidopa 25 mg-levodopa 250 mg See Rx Instructions .Route 06/12/22 10/11/22 Unknown Rx tablet .COMPLEX #180 tabs colchicine 0.6 mg tablet 0.6 mg PO DAILY PRN gout #90 tabs 06/12/22 10/11/22 Unknown Rx omeprazole 40 mg capsule,delayed 40 mg PO QAM #90 caps 06/12/22 10/11/22 Unknown Rx release indomethacin 75 mg 75 mg PO BID PRN Gout/arthritis 08/21/22 10/11/22 Unknown Rx capsule,extended release attacks #30 caps carbidopa 25 mg tablet 25 mg PO Q6H #120 tabs 09/06/22 10/11/22 Unknown Rx ondansetron 4 mg disintegrating 4 mg PO Q8H PRN nausea and 09/06/22 10/11/22 Unknown Rx tablet vomiting #30 tabs metoprolol tartrate 50 mg tablet 75 mg PO BID #180 tabs 10/08/22 10/11/22 Unknown Rx Allergies Allergy/AdvReac Type Severity Reaction Status Date / Time allopurinol Allergy Unknown Unknown Verified 10/11/22 14:39 ketorolac [From Toradol] Allergy Unknown Unknown Verified 10/11/22 14:39 orphenadrine [From Norflex] Allergy Unknown Unknown Verified 10/11/22 14:39 promethazine [From Phenergan] Allergy Unknown Unknown Verified 10/11/22 14:39 tramadol Allergy Unknown Unknown Verified 10/11/22 14:39 methadone Allergy Unknown Verified 10/11/22 14:39 oxycodone Allergy Unknown Verified 10/11/22 14:39 narcotics Allergy Severe Unknown Uncoded 10/11/22 14:39 PFSH Acute PFSH: Medical History Anxiety and depression CAD (coronary artery disease) Chewing tobacco nicotine dependence Age [age] (currently) Chronic right shoulder pain DDD (degenerative disc disease) Decreased glomerular filtration rate (GFR) Eustachian tube dysfunction GERD (gastroesophageal reflux disease) Gout Hearing loss Hypertension Knee pain, right Migraines Osteoarthritis Parkinsons disease Polyp of esophagus Polyp of tongue Pre-procedural examination Surgical History History of back surgery x6 different surgeries on the spine Family History Father Stroke Heart attack Brother Hypertension Sister Heart attack Social History Smoking and tobacco status: current every day smoker (chewing) smokeless tobacco Smokeless tobacco user: chewing tobacco Alcohol intake: former Desire information about alcohol rehabilitation?: No Substance/Drug Use: current Substance/Drug use frequency: other Other substance/drug use details: medical marijuana Desire information about substance/drug rehabilitation?: No Caregiver/support person: No Lives independently: Yes Household members: none Marital status: Single Highest education level completed: Some College, No Degree service: No Current occupational status: retired and disabled Do you think of yourself as: Straight/Heterosexual Current gender identity: Male Vitals/I&O/Wt Last Vital Signs Temp 97.6 F 10/31/22 05:00 Pulse 92 10/31/22 05:00 Resp 18 10/31/22 05:00 BP 128/75 10/31/22 05:00 Pulse Ox 90 10/31/22 05:00 O2 Del Method Room Air 10/31/22 02:20 O2 Flow Rate 2 10/30/22 23:56 10/30/22 10/30/22 10/31/22 14:59 22:59 06:59 Intake Total 1999 Output Total 525 / 525 Balance 1475 / 1475 Weight last 48 hrs Weight 86.183 kg Weight 77.111 kg Physical Exam Narrative: General: No acute distress, AO x3 HEENT: PERRLA, pupils bilaterally equal and reactive, pallors not present Chest: Normal vesicular breath sounds, no added sounds, equal good air entry bilaterally CVS: S1-S2 regular, no murmurs, no tachycardia, no gallops, no rubs Abdomen: Soft, nontender, no organomegaly, bowel sounds present Neuro: No focal deficits, no facial deformity, AO x3, power 5/5 in all limbs Extremities: Swelling over left ankle, extremely painful to touch, no erythema or gross signs of cellulitis. Data 10/30/22 21:50 10/30/22 21:50 Micro: Microbiology 10/30/22 21:50 Blood Culture - Preliminary Blood SPECIMEN COLLECTED Other data: Signed Patient: Jude Burden Unit #: [id number] : 1965 Age/Sex: 57 / M ADM Date: 10/30/22 Loc: ER Room/Bed: Attending Dr: Ordering Provider/Ordering MD: Heidi Abreu MD Date of Service: 10/30/22 Procedure(s): XR ankle LT min 3V* 71040 Accession Number(s): [id number] Report Number: [id number] PROCEDURE INFORMATION: Exam: XR Left Ankle Exam date and time: 10/30/2022 10:21 PM Age: 57 years old Clinical indication: Pain; Ankle; Left TECHNIQUE: Imaging protocol: Radiologic exam of the left ankle. Views: 3 or more views. COMPARISON: No relevant prior studies available. FINDINGS: Bones/joints: Os trigonum, a normal variant. Soft tissues: Soft tissue swelling about the ankle, nonspecific. XR/XR ankle LT min 3V* 94086 IMPRESSION: 1. ? Negative for acute bony abnormality. 2. ? Os trigonum, a normal variant. 3. ? Soft tissue swelling about the ankle, nonspecific. A&P Assessment and plan (1) Swelling of left ankle joint: Patient with acute onset swelling of the left ankle joint which started 2 days prior to presentation. Differentials at this time include acute gouty attack versus septic arthritis. Start colchicine 0.6 mg twice daily. Patient has taken 2 doses of colchicine at home. Febrile 102 Fahrenheit when picked up by EMS, currently he is afebrile. Podiatry has been consulted from the ER, attempts at aspiration in the ER were unsuccessful. To be reattempted by podiatry this morning. Since patient is otherwise clinically stable, hold off on starting antibiotics u ntil joint aspirate has been obtained. As needed Dilaudid for pain in addition to colchicine, NSAID versus steroids may be added after the joint aspirate. Blood culture taken and pending Check urine GC/chlamydia NAAT, though historically gonococcal arthritis appears less likely Attestations Medical Necessity Statement*: Anticipate less than 2 midnight stay, pending joint aspirate, further care to be determined based on findings on synovial fluid analysis. Coding Level of Care Code Acute Code for [facility] Fwd Diagnoses Swelling of left ankle joint M25.472
[2022-10-31] MEDS: HYDROmorphone 1 mg/mL INJ 1 mL 0.5 MG IVP ×4 (08:20→23:44)
[2022-10-31] MEDS: pantoprazole DR 40 mg Tablet PO (08:21)
[2022-10-31] MEDS: colchicine 0.6 mg Tablet PO ×2 (08:21→17:56)
[2022-10-31 08:53] LABS: Cyto Order Verification Order Verified
[2022-10-31 08:56] LABS: Cyto Order Verification Order Verified
[2022-10-31 08:57] LABS: Appearance Synovial Fluid BLOODY (CLEAR)
[2022-10-31 09:24] LABS: PATH Referal YES
[2022-10-31 09:25] LABS: Color Synovial Fluid RED (PALE YELLOW)
[2022-10-31 10:01] LABS: RBC Synovial Fluid 887 10^3/uL (0-0); Synovial Fluid Mononuclear # 2.329 10^3/uL
--- NOTE | 2022-10-31 10:28 | P.CONIM_ITS ---
Providers/Reason For Consult Consulting Physician/Specialty*: Marciano Ibarra.P.M./PODIATRY Reason for Consult*: Suspected septic ankle left ankle Attending Physician: Palmer Cifuentes MD Primary Care Provider: Wali Moon MD History of Present Illness History of Present Illness Jude Burden is a 57 year old male who presented to the emergency department with chief complaint of left ankle swelling and pain which began on 10/28/2022. It has progressively worsened. Patient does have a history of gout but he states that this is different from previous gouty attacks that he has had. He states that his left ankle is very painful and he is unable to put any pressure on it to weight-bear. In the emergency department, multiple attempts were made to aspirate the left ankle joint. No fluid was obtained. Podiatry was consulted to evaluate left ankle for possible septic joint. Patient does have a history of septic arthritis to the contralateral ankle joint back in 2014 which she states was treated in [place]. When asked, the patient states that he does not know where the septic ankle organism originated from. He does state though that his treatment included antibiotics which brought up his kidneys requiring 4 months of dialysis. Patient endorses fever and general feelings of malaise. Review of Systems General: Reports: 10 or more systems reviewed and unremarkable except in HPI and below Const: Denies: fever(s), chills, body aches or change in appetite Eyes: Denies: change in vision or blurry vision Card: Denies: chest pain, palpitations or irregular heart rhythm Resp: Denies: dyspnea GI: Denies: abdominal pain, nausea, vomiting or diarrhea Musc: Reports: joint stiffness Skin/Breast: Reports: non-healing lesions and lesions Neuro: Denies: numbness in extremities Medications/Allergies Home Medications Medication Instructions Recorded Confirmed Last Taken Type aspirin 81 mg tablet,delayed 81 mg PO QAM 05/01/22 10/31/22 06/04/22 06:00 History release (Adult Low Dose Aspirin) acetaminophen 500 mg tablet 1,000 mg PO Q12H PRN Pain 06/04/22 10/31/22 06/04/22 06:00 History colchicine 0.6 mg tablet 0.6 mg PO DAILY PRN gout #90 tabs 06/12/22 10/31/22 Unknown Rx omeprazole 40 mg capsule,delayed 40 mg PO QAM #90 caps 06/12/22 10/31/22 Unknown Rx release indomethacin 75 mg 75 mg PO BID PRN Gout/arthritis 08/21/22 10/31/22 Unknown Rx capsule,extended release attacks #30 caps ondansetron 4 mg disintegrating 4 mg PO Q8H PRN nausea and 09/06/22 10/31/22 Unknown Rx tablet vomiting #30 tabs metoprolol tartrate 50 mg tablet 75 mg PO BID #180 tabs 10/08/22 10/31/22 Unknown Rx carbidopa 25 mg-levodopa 250 mg 1.5 tab PO Q6H 10/31/22 10/31/22 Unknown History tablet Allergies Allergy/AdvReac Type Severity Reaction Status Date / Time allopurinol Allergy Unknown Unknown Verified 10/11/22 14:39 ketorolac [From Toradol] Allergy Unknown Unknown Verified 10/11/22 14:39 orphenadrine [From Norflex] Allergy Unknown Unknown Verified 10/11/22 14:39 promethazine [From Phenergan] Allergy Unknown Unknown Verified 10/11/22 14:39 tramadol Allergy Unknown Unknown Verified 10/11/22 14:39 methadone Allergy Unknown Verified 10/11/22 14:39 oxycodone Allergy Unknown Verified 10/11/22 14:39 narcotics Allergy Severe Unknown Uncoded 10/11/22 14:39 Current Medications Generic Name Dose Route Start Last Admin Trade Name Freq PRN Reason Stop Dose Admin Colchicine 0.6 mg 10/31/22 09:00 10/31/22 08:21 Colchicine 0.6 Mg Tablet PO 0.6 mg BID JB Administration Hydromorphone HCl 0.5 mg 10/31/22 06:47 10/31/22 08:20 Hydromorphone 1 Mg/Ml Inj 1 Ml IVP 0.5 mg Q4H PRN Administration pain Pantoprazole Sodium 40 mg 10/31/22 09:00 10/31/22 08:[address] 40 Mg Tablet PO 40 mg DAILY JB Administration PFSH Acute PFSH: Medical History Anxiety and depression CAD (coronary artery disease) Chewing tobacco nicotine dependence Age [age] (currently) Chronic right shoulder pain DDD (degenerative disc disease) Decreased glomerular filtration rate (GFR) Eustachian tube dysfunction GERD (gastroesophageal reflux disease) Gout Hearing loss Hypertension Knee pain, right Migraines Osteoarthritis Parkinsons disease Polyp of esophagus Polyp of tongue Pre-procedural examination Surgical History History of back surgery x6 different surgeries on the spine Family History Father Stroke Heart attack Brother Hypertension Sister Heart attack Social History Smoking and tobacco status: current every day smoker (chewing) smokeless tobacco Smokeless tobacco user: chewing tobacco Alcohol intake: former Desire information about alcohol rehabilitation?: No Substance/Drug Use: current Substance/Drug use frequency: other Other substance/drug use details: medical marijuana Desire information about substance/drug rehabilitation?: No Caregiver/support person: No Lives independently: Yes Household members: none Marital status: Single Highest education level completed: Some College, No Degree service: No Current occupational status: retired and disabled Do you think of yourself as: Straight/Heterosexual Current gender identity: Male Vitals/I&O/Wt Last Vital Signs Temp 100.0 F H 10/31/22 07:49 Pulse 98 10/31/22 07:49 Resp 16 10/31/22 08:20 BP 143/90 10/31/22 07:49 Pulse Ox 91 10/31/22 07:49 O2 Del Method Room Air 10/31/22 07:49 O2 Flow Rate 2 10/30/22 23:56 10/30/22 10/31/22 10/31/22 22:59 06:59 14:59 Intake Total 1999 / 1999 120 / 120 Output Total 525 / 525 500 / 500 Balance 1475 / 1475 -380 / -380 Weight last 48 hrs Weight 190 lb Weight 170 lb Physical Exam Narrative: BELOW IS A FOCUSED LOWER EXTREMITY EXAM GENERAL: A&O x 3 VASCULAR: DP/PT pulses palpable 2/4 with CFT intact, <3seconds to distal digits. Marked edema to left ankle in comparison to contralateral limb DERMATOLOGICAL: Left ankle is warm to touch in comparison to contralateral ankle. No open wounds appreciated MUSCULOSKELETAL: Extreme tenderness with palpation of left ankle. Unable to range the left ankle joint secondary to pain. Left ankle feels full to touch and engorged. No calf tenderness. NEUROLOGICAL: Neurological sensation to the affected foot and ankle is present through L4-S1 dermatomes with no hyper/hypoesthesias, negative Tinel or Valleix's sign Data 10/30/22 21:50 10/30/22 21:50 Micro: Microbiology 10/31/22 06:41 Blood Culture - Preliminary Blood SPECIMEN COLLECTED 10/30/22 21:50 Blood Culture - Preliminary Blood SPECIMEN COLLECTED A&P Assessment and plan (1) Septic arthritis of left ankle: (2) Swelling of left ankle joint: (3) Pain in left ankle: Plan LABS AND CLINICAL INFO: WBC 11.9 Temp 100 RR 16 HR 98 ESR 50 CRP 219 Blood cultures: Pending Left ankle aspirate cultures: Pending Left ankle aspirate sent to cytology PLAN: -N.p.o. at midnight 11/01/2022 for left ankle arthroscopy and washout tomorrow (11/01/2022) -Left ankle was tapped at bedside this morning. See general procedure note for details -Start broad-spectrum antibiotics -Monitor cultures -Trend labs -Nonweightbearing to left lower extremity -Discharge plan: To be determined -Podiatry will continue to round on patient daily and provide recommendations. Consult Attestations Medical Necessity Statement: Left ankle suspected septic arthritis requiring left ankle arthroscopy with washout Coding Level of Care Code Acute Code for [facility] Fwd Diagnoses Septic arthritis of left ankle M00.9 Swelling of left ankle joint M25.472 Pain in left ankle M25.572
--- NOTE | 2022-10-31 10:45 | PM.ACPR ---
Procedure/Consent Consent: Additional Consent Information: Left ankle arthrocentesis Procedure Narrative: PROCEDURE: Left ankle arthrocentesis CPT 32876 Both written and verbal consent were obtained for left ankle arthrocentesis. After consent was obtained, the anterior medial left ankle was anesthetized using 1 cc of 0.5% Marcaine plain. This was performed after the site was prepped with alcohol. After anesthesia was achieved, the anterior ankle was prepped with chlorhexidine prep stick. Next an 18-gauge needle was inserted into the anteromedial portion of the left ankle just medial to the tibialis anterior tendon. This needle was advanced into the ankle joint capsule. The syringe was used to aspirate and 4 cc of hemorrhagic dark discolored fluid was drawn from the left ankle. It was sent to cytology for evaluation. Cultures of this fluid were obtained and sent to micro for ID and sensitivity. The patient tolerated the procedure well and without complications. The site was then dressed with dry sterile dressing.
[2022-10-31 11:21] LABS: Procalcitonin 0.13 ng/mL (0-0.5); Thyroid Stimulating Hormone 3.12 uIU/mL (0.27-4.20); Vitamin B12 239 pg/mL (232-1245)
--- NOTE | 2022-10-31 11:23 | PC.PHAR ---
PHARMACY TO DOSE - MULTIPLE DRUGS With the patient's current lab and vital results, pharmacy calculated the dose to be 1250mg every 12 hours for a predicted peak of 32.6 mcg/ml and a trough of 13.67 mcg/ml. We will draw a trough prior to the 4th dose. For the Zosyn, we entered the dose at 3.375g every 8 hours. Pharmacy will continue to monitor the patient's renal function and make adjustments as necessary. Thanks, Ted Garibay, Pharm.D
[2022-10-31 11:31] LABS: Iron 37 ug/dL (59-158); Percent Saturation 12.5 % (20-50); Total Iron Binding Capacity 294 mcg/dl; Unsaturated Iron Binding 257 ug/dL (112-347)
[2022-10-31] MEDS: vancomycin 1,250 MG/250 ML PIGGYBACK 250 MG IV ×2 (12:32→23:53)
[2022-10-31] MEDS: piperacillin-tazobactam 3.375 GM in sodium chloride 0.9% (plus) 50 ML IV ×2 (12:33→19:43)
--- NOTE | 2022-10-31 14:25 | P.PN_ITS ---
Subjective Subjective: Admitted overnight. Appreciate labs and H&P. Denies any nausea, vomiting, headache. Underwent synovial fluid aspiration today. Appreciate results. Patient laying comfortably in bed. Complaining of pain in the ankle. Vitals/I&O/Wt Last Vital Signs Temp 98.2 F 10/31/22 11:37 Pulse 94 10/31/22 11:37 Resp 16 10/31/22 11:37 BP 104/58 10/31/22 11:37 Pulse Ox 91 10/31/22 11:37 O2 Del Method Room Air 10/31/22 11:37 O2 Flow Rate 2 10/30/22 23:56 10/30/22 10/31/22 10/31/22 22:59 06:59 14:59 Intake Total 1999 / 1999 370 / 370 Output Total 525 / 525 1100 / 1100 Balance 1475 / 1475 -730 / -730 Weight last 48 hrs Weight 86.183 kg Weight 77.111 kg Physical Exam Narrative: General: No acute distress, AO x3 HEENT: PERRLA, pupils bilaterally equal and reactive, pallors not present Chest: Normal vesicular breath sounds, no added sounds, equal good air entry bilaterally CVS: S1-S2 regular, no murmurs, no tachycardia, no gallops, no rubs Abdomen: Soft, nontender, no organomegaly, bowel sounds present Neuro: No focal deficits, no facial deformity, AO x3, power 5/5 in all limbs Extremities: Swelling over left ankle, extremely painful to touch, no erythema or gross signs of cellulitis. Data 10/30/22 21:50 10/30/22 21:50 Micro: Microbiology 10/31/22 06:41 Blood Culture - Preliminary Blood SPECIMEN COLLECTED 10/30/22 21:50 Blood Culture - Preliminary Blood SPECIMEN COLLECTED A&P Assessment and plan (1) Septic arthritis of left ankle: Appreciate spinal fluid aspiration results. Appreciate podiatry recommendations. Plan for the OR in AM. Follow-up cultures. Check MRSA swab. Start on vancomycin and Zosyn for now. Dilaudid 0.4 every 4 hourly as needed. PT evaluation post or as per her weightbearing status. regional training manager alerted for possible home health versus SNF as per PT evaluation. (2) Hypertension: Blood pressure less than 140/90 mmHg. Presently stable for now. Takes metoprolol 75 mg twice daily at home. For now start at 25 mg twice daily. (3) Swelling of left ankle joint: Patient with acute onset swelling of the left ankle joint which started 2 days prior to presentation. Differentials at this time include acute gouty attack versus septic arthritis. Continue with colchicine 0.6 mg twice daily. Patient has taken 2 doses of colchicine at home. Check urine GC/chlamydia NAAT, though historically gonococcal arthritis appears less likely Plan Restart other home medications including carbidopa levodopa, indomethacin, aspirin. Full code. Cardiac diet. N.p.o. after midnight. Heparin 5000 every 12 hourly for DVT prophylaxis Protonix for PUD prophylaxis. Attestations Medical Necessity Statement*: Jude Burden is being changed to inpatient status as stay will now exceed 2 midn ights. Ongoing hospital care is necessary for management of septic arthritis of the ankle joint Diagnoses Septic arthritis of left ankle M00.9 Hypertension I10 Swelling of left ankle joint M25.472
[2022-10-31] MEDS: carbidopa-levodopa 25-250mg Tablet 1.5 EACH PO ×2 (15:37→22:11)
[2022-10-31] MEDS: metoprolol tartrate 25 mg Tablet PO (22:11)
[2022-11-01] VITALS (23 sets, daily range): BP systolic 102–128; BP diastolic 66–84; PULSE 72–88; RESP 12–18; TEMP 36.2–38.6; O2SAT 90–98
--- NOTE | 2022-11-01 00:47 | PC.PHAR ---
Vancomycin Trough scheduled for 11/01 2300, please hold 11/02 0000 dose until drawn. Thank you, Libra Johnson [facility]
[2022-11-01] MEDS: carbidopa-levodopa 25-250mg Tablet 1.5 EACH PO ×3 (03:05→20:05)
[2022-11-01] MEDS: piperacillin-tazobactam 3.375 GM in sodium chloride 0.9% (plus) 50 ML IV ×2 (03:06→20:07)
[2022-11-01] MEDS: HYDROmorphone 1 mg/mL INJ 1 mL 0.5 MG IVP ×4 (03:30→22:31)
[2022-11-01] MEDS: acetaminophen 325 mg Tablet 650 MG PO (04:15)
[2022-11-01 04:42] LABS: Alanine Aminotransferase < 5 U/L (0-41); Albumin Level 3.2 g/dL (3.5-5.2); Alkaline Phosphatase 63 U/L (40-130); Anion Gap 16.9 (5-19); Aspartate Amino Transferase 10 U/L (0-40); Blood Urea Nitrogen 11 mg/dL (6-20); Calcium 9.2 mg/dL (8.5-10.5); Carbon Dioxide 24 mmol/L (22-29); Chloride 97 mmol/L (98-107); Globulin 3.9 g/dL (1.3-4.6); Glomerular Filtration Rate 76.7 mL/min (90-130); Glucose 99 mg/dL (65-115); Osmolality Calculated 277 mOsm/kg (285-295); Potassium 3.9 mmol/L (3.5-5.1); Sodium 134 mmol/L (136-145); Total Bilirubin 0.9 mg/dL (0.15-1.2); Total Protein 7.1 g/dL (6.6-8.7)
[2022-11-01 04:57] LABS: Folate Level 4.9 ng/mL (4.5-32.2)
[2022-11-01 05:19] LABS: Chol HDL Ratio 5.26 mg/dL (1.0-5.00); Cholesterol 221 mg/dL (0-200); HDL Cholesterol 42 mg/dL (60-100); LDL Cholesterol Calculated 157 mg/dL (50-129); Triglycerides 108 mg/dL (0-150); VLDL Cholestrol Calculation 22 mg/dL (0-30)
[2022-11-01 05:20] LABS: Estmated Average Glucose 123; Hemoglobin A1C 5.9 % (4.0-6.0)
[2022-11-01 05:26] LABS: Basophils % 0.2 %; Eosinophils % 0.2 %; Hemoglobin 14.8 g/dL (11.7-16.6); Lymphocytes # 1.4 10^3/uL (0.8-4.8); Lymphocytes % 11.2 %; Mean Corpuscular HGB Conc 31.5 g/dL (30.0-36.0); Mean Platelet Volume 9.6 fL (7.4-10.4); Monocytes # 1.2 10^3/uL (0.2-0.9); Monocytes % 9.6 %; Neutrophils # 9.72 10^3/uL (1.8-7.7); Neutrophils % 78.2 %; Nucleated Red Blood Cells % 0 %; Platelet Count 272 10^3/cmm (130-400); Red Blood Count 5.28 10^6/uL (4.1-5.3); Red Cell Distribution Width 15.4 % (12.1-15.1); White Blood Count 12.5 10^3/uL (4.0-10.0)
[2022-11-01 05:58] LABS: Slide Review Slide Review Perform
--- NOTE | 2022-11-01 07:24 | PC.NURSE ---
0730 - CHG wipes used on left ankle. Pre - op checklist completed. NPO since midnight verified. Consent on chart, incomplete. Will be sent with patient to pre-op. 20g to left forearm , flushed and patent.
--- NOTE | 2022-11-01 08:38 | ANES.PREANE2 ---
Pre-Anesthetic Assessment Height/Weight: Height 1.65 m Weight 86.183 kg Temp Pulse Resp BP Pulse Ox O2 Del Method O2 Flow Rate 99.6 F 88 16 108/67 90 Room Air 2 11/01/22 04:55 11/01/22 04:00 11/01/22 04:00 11/01/22 04:00 11/01/22 04:00 10/31/22 16:00 10/30/22 23:56 Operation Date: 11/01/22 09:15 Proposed Procedures p Left ankle arthroscopy with washout(Left) - Juan Chirinos DPM Familial anesthetic complications: NOne Was Beta Todd taken within 24 hours: Yes Was Clonidine taken within 24 hours: N/A Last intake: Intake Last Liquid Date 10/31/22 Last Liquid Time 19:00 Last Solid Date 10/31/22 Last Solid Time 15:00 Social Tobacco (chews) and No alcohol Exam alert, oriented x 3, clear to auscultation bilaterally and regular rate & rhythm Airway Mallampati: Class III Dentition: other (very poor dentition) CV/HEM Coronary Artery Disease and Hypertension Neuropsych parksinson's Anesthetic Plan ASA status: 3 Anesthesia: General and Regional (specify below) Risk of > 500 ml blood loss (7ml/kg in children): No Medications/Allergies Home Medications Medication Instructions Recorded Confirmed Last Taken Type aspirin 81 mg tablet,delayed 81 mg PO QAM 05/01/22 10/31/22 06/04/22 06:00 History release (Adult Low Dose Aspirin) acetaminophen 500 mg tablet 1,000 mg PO Q12H PRN Pain 06/04/22 10/31/22 06/04/22 06:00 History colchicine 0.6 mg tablet 0.6 mg PO DAILY PRN gout #90 tabs 06/12/22 10/31/22 Unknown Rx omeprazole 40 mg capsule,delayed 40 mg PO QAM #90 caps 06/12/22 10/31/22 Unknown Rx release indomethacin 75 mg 75 mg PO BID PRN Gout/arthritis 08/21/22 10/31/22 Unknown Rx capsule,extended release attacks #30 caps ondansetron 4 mg disintegrating 4 mg PO Q8H PRN nausea and 09/06/22 10/31/22 Unknown Rx tablet vomiting #30 tabs metoprolol tartrate 50 mg tablet 75 mg PO BID #180 tabs 10/08/22 10/31/22 Unknown Rx carbidopa 25 mg-levodopa 250 mg 1.5 tab PO Q6H 10/31/22 10/31/22 Unknown History tablet Allergies Allergy/AdvReac Type Severity Reaction Status Date / Time allopurinol Allergy Unknown Unknown Verified 10/11/22 14:39 ketorolac [From Toradol] Allergy Unknown Unknown Verified 10/11/22 14:39 orphenadrine [From Norflex] Allergy Unknown Unknown Verified 10/11/22 14:39 promethazine [From Phenergan] Allergy Unknown Unknown Verified 10/11/22 14:39 tramadol Allergy Unknown Unknown Verified 10/11/22 14:39 methadone Allergy Unknown Verified 10/11/22 14:39 oxycodone Allergy Unknown Verified 10/11/22 14:39 narcotics Allergy Severe Unknown Uncoded 10/11/22 14:39 Current Medications Generic Name Dose Route Start Last Admin Trade Name Freq PRN Reason Stop Dose Admin Acetaminophen 650 mg 10/31/22 03:42 11/01/22 04:15 Acetaminophen 325 Mg Tablet PO 650 mg Q6H PRN Administration Mild/Mod Pain Or Temp >/= 101 Aspirin 81 mg 11/01/22 06:00 11/01/22 04:19 Aspirin 81 Mg Ec Tablet PO Not Given QAM JB Carbidopa/Levodopa 1.5 each 10/31/22 15:00 11/01/22 03:05 Carbidopa-Levodopa 25-250mg Tablet PO 1.5 each Q6H JB Administration Colchicine 0.6 mg 10/31/22 09:00 10/31/22 17:56 Colchicine 0.6 Mg Tablet PO 0.6 mg BID JB Administration Hydromorphone HCl 0.5 mg 10/31/22 06:47 11/01/22 03:30 Hydromorphone 1 Mg/Ml Inj 1 Ml IVP 0.5 mg Q4H PRN Administration pain Piperacillin Sod/Tazobactam 50 mls @ 12.5 mls/hr 10/31/22 11:30 11/01/22 07:29 Sod 3.375 gm/ Sodium Chloride IV Infused Q8H JB Infusion Vancomycin/PEG/NADA/Lysine/Water 1,250 mg in 250 mls @ 250 mls/hr 10/31/22 12:00 11/01/22 01:23 Vancocin IV Infused Q12H JB Infusion Metoprolol Tartrate 25 mg 10/31/22 21:00 10/31/22 22:11 Metoprolol Tartrate 25 Mg Tablet PO 25 mg BID@0900,2100 JB Administration Non-Formulary Medication 75 mg 10/31/22 18:00 10/31/22 17:59 Indomethacin PO Not Given BID JB Pantoprazole Sodium 40 mg 10/31/22 09:00 10/31/22 08:[address] 40 Mg Tablet PO 40 mg DAILY JB Administration PFSH Anesthesia Medical History Anxiety and depression CAD (coronary artery disease) Chewing tobacco nicotine dependence Age [age] (currently) Chronic right shoulder pain DDD (degenerative disc disease) Decreased glomerular filtration rate (GFR) Eustachian tube dysfunction GERD (gastroesophageal reflux disease) Gout Hearing loss Hypertension Knee pain, right Migraines Osteoarthritis Parkinsons disease Polyp of esophagus Polyp of tongue Pre-procedural examination Surgical History History of back surgery x6 different surgeries on the spine Family History Father Stroke Heart attack Brother Hypertension Sister Heart attack Social History Smoking and tobacco status: current every day smoker (chewing) smokeless tobacco Smokeless tobacco user: chewing tobacco Alcohol intake: former Desire information about alcohol rehabilitation?: No Substance/Drug Use: current Substance/Drug use frequency: other Other substance/drug use details: medical marijuana Desire information about substance/drug rehabilitation?: No Caregiver/support person: No Lives independently: Yes Household members: none Marital status: Single Highest education level completed: Some College, No Degree service: No Current occupational status: retired and disabled Do you think of yourself as: Straight/Heterosexual Current gender identity: Male Data Anesthesia 11/01/22 03:33 11/01/22 03:33 Short CBC 10/30/22 11/01/22 11/01/22 Range/Units 21:50 03:33 03:33 WBC 11.9 H Cancelled 12.5 H (4.0-10.0) 10^3/uL Hgb 15.2 Cancelled 14.8 (11.7-16.6) g/dL Hct 46.3 Cancelled 47.0 (42.0-52.0) % MCV 86.1 Cancelled 89.0 (80-94) fl Plt Count 245 Cancelled 272 (130-400) 10^3/cmm Neut % (Auto) 75.0 Cancelled 78.2 % Neut # (Auto) 8.93 H Cancelled 9.72 H (1.8-7.7) 10^3/uL BMP 10/30/22 11/01/22 21:50 03:33 Sodium 133 L 134 L Potassium 3.7 3.9 Chloride 93 L 97 L Carbon Dioxide 25 24 BUN 17 11 Creatinine 0.9 1.0 Glucose 81 99 Calcium 9.1 9.2 Liver Function 10/30/22 11/01/22 Range/Units 21:50 03:33 Total Bilirubin 1.1 0.9 (0.15-1.2) mg/dL AST 11 10 (0-40) U/L ALT < 5 < 5 (0-41) U/L Alkaline Phosphatase 68 63 (40-130) U/L Albumin 4.0 3.2 L (3.5-5.2) g/dL Urine 10/30/22 Range/Units 22:30 Urine Color Yellow (Yellow) Urine Appearance Clear (CLEAR) Urine pH 5 (5-7) Ur Specific [place] 1.015 (1.005-1.030) Urine Protein Neg (Negative) Urine Glucose (UA) Norm (Normal) Urine Ketones 1+ H (Negative) Urine Nitrate Negative (Negative) Urine Bilirubin Neg (Negative) Ur Leukocyte Esterase Negative (Negative) Urine RBC 0-4 H (0-2) /hpf Urine WBC None (0-5) /hpf Coags 10/30/22 10/30/22 21:50 21:50 ESR 50 H C-Reactive Protein 219.0 H Microbiology 10/31/22 06:41 Blood Culture - Preliminary Blood NEGATIVE TO DATE 10/30/22 21:50 Blood Culture - Preliminary Blood NEGATIVE TO DATE 10/31/22 07:00 Gram Stain - Final Ankle - #1 Cardiac Studies: Sestamibi Stress Test (Cardiology) 04/05/22 Holter Monitor 07/06/22
--- NOTE | 2022-11-01 08:48 | W.PM.OPSUD ---
Surgery/Procedure H&P Update DATE OF PROCEDURE: November 01, 2022 DATE H&P PERFORMED: 10/31/22 CHANGES TO PREVIOUS DOCUMENTATION: No changes PLANNED PROCEDURE: Operation Date: 11/01/22 09:15 Proposed Procedures p Left ankle arthroscopy with washout(Left) - Juan Chirinos DPM
[2022-11-01] MEDS: sodium chloride 0.9% 1,000 ML 30 ML IV (09:15)
[2022-11-01] MEDS: fentaNYL 50 mcg/mL INJ 2mL IVP (09:16)
--- NOTE | 2022-11-01 09:19 | ANES.PROC ---
Anesthesia Procedures Procedure/Date: 11/01/22 Nerve Block ^: Nerve Block 1: Main Anesthesia: general anesthesia Time Out Performed: Yes Consent: requested by attending/covering physician, from patient, from other, risks and benefits reviewed and patient agrees to proceed Nerve block location: popliteal (L) Anesthesia monitors applied: pulse oximetry, EKG, BP cuff and oxygen Nerve block position: supine Anesthetic Used: ropivicaine 0.5% (30) and with decadron (4 mg) Nerve Stimulator Used?: No Interscalene/Femoral BLK: 4 stimuplex 21 g needle used for position and inplane approach, visualize local anesthetic spread and no vascular puncture identified Injection: neg aspiration of heme Patient Tolerated Procedure: well and no complications
[2022-11-01 11:40] LABS: Amphetamines Screen Urine Negative (Negative); Barbiturates Screen Urine Negative (Negative); Benzodiazepines Screen Urine Negative (Negative); Cocaine Screen Urine Negative (Negative); Opiate Screen Urine Positive (Negative); PCP Screen Urine Negative (Negative); THC Screen Urine Positive (Negative)
[2022-11-01] MEDS: vancomycin 1,250 MG/250 ML PIGGYBACK 250 MG IV (12:20)
--- NOTE | 2022-11-01 12:51 | PC.CHAP ---
Pastoral Care Encounter/Spiritual Assessment Type of Contact [] Declined automobile rental clerk visit [] Patient/Family/Request visit [] Outpatient visit [] Follow-up visit [] Physician referral [] Code/Alert [x] Routine visit [] Staff referral [] Actively dying [] Patient sleeping [] Family support [] [] Out of room [] Palliative care [] [x] Receiving care in room [] Pre-surgical visit [] Trauma [] Long length of stay [] ICU visit [] Other: Relational/Emotional Strength [x] Patient feels connected with others/family/visitors/staff [] Distress [] Loneliness/isolation [] Abandonment Spirituality of Patient [x] Person of Lisa [] Attends Rastafarian of their Lisa [x] Believes in Prayer [] Reads Bible or Bahai materials [] There are Spiritual issues to be addressed Gas Line Repairer Interventions [x] Prayer [x] Active listening [x] Non-anxious presence [x] Spiritual/emotional support [] Crisis/trauma care [x] Spiritual counseling [] Bereavement support [] Provided bereavement packet [] Provided Bible/devotional materials [] Provided toy/stuffed animal, coloring book to patient or family member [] Provided Communion [] Anointing/[place] [] Salvation [x] Completed spiritual assessment [] Other: Impact on Illness or Injury [] Angry [] Fearful [] Anxious [] Often cries [] Exhaustion [] Unable to work [] Unable to attend shinto [] Unable to walk/stand [] Unable to read [] Unable to drive [] Unable to eat/drink [] Unable to sleep [] Unable to be with family [] Patient intubated [] Other: Summary addes blood well go to [facility] Time spent with patient 10 mins
--- NOTE | 2022-11-01 14:35 | PM.OP ---
Operative Report Date of procedure: November 01, 2022 Pre-op diagnosis: Left ankle septic arthritis Post-op diagnosis: Same Post-op findings: Hemorrhagic synovitis left ankle with milky, discolored fluid within the joint Procedure done: Left ankle arthroscopy CPT 71305 Specimens removed/disposition: Cultures aerobic and anaerobic of left ankle Surgeon: Marciano Ibarra.P.MMary Anne Estimated blood loss: Less than 10 cc No tourniquet Complications: None Findings: See above Procedure: Patient is a 57-year-old male that has a history of left ankle septic arthritis. The extent of the left ankle infection necessitates ankle arthroscopy with washout. A lengthy discussion regarding the procedure, including risks and complications has been had with the patient and is noted in the recent clinic note. Written and verbal consent have been obtained. All patient questions have been answered to the patient?s satisfaction. No written or verbal guarantees have been given or implied. The patient has been NPO since midnight. The history has been reviewed and the history and physical is current. The signed consent was confirmed and placed in the patient chart. Patient imaging has been reviewed and is consistent with the diagnosis. Under mild sedation, the patient was brought into the operating room and placed on the table in the supine position. IV antibiotics were given by the anesthesia team as preoperative surgical prophylaxis. General sedation was then performed by the anesthesiateam. A popliteal block was performed by the anesthesia department the left lower extremity was prepped scrubbed and draped in the usual fashion. After prep, the following procedure was then performed. Attention was directed to the anterior aspect of the left ankle. Anteromedial portal was made just medial to the tibialis anterior tendon using a #11 blade. Blunt dissection was carried down to the joint capsule using mosquito hemostat. The joint capsule was pierced and the trocar and cannula were inserted into the anteromedial portal. There was noted to be extravasation of discolored synovial joint fluid with milky discoloration. Cultures both aerobic and anaerobic were taken of this fluid at this time and sent to micro for ID and sensitivity. The camera was inserted into the ankle joint and the ankle joint is examined. There is noted to be a significant amount of hemorrhagic synovitis within the ankle joint. The tibial plafond and and talar dome appeared normal without any defects. Using transillumination and anterolateral portal was created using a #11 blade. A hemostat was used to casper the capsule and the 3.0 arthroscopic shaver was inserted into the anterolateral portal. The ankle joint was debrided of hemorrhagic synovitis. 3 L of saline was used to irrigate the ankle joint during debridement. The ankle joint was noted to be clear and free from hemorrhagic synovitis after debridement. The trocar and cannula as well as shaver were then removed from the ankle and attention was directed to closure. 4-0 nylon was used to close the portal incisions. These were dressed with Xeroform, 4 x 4 gauze, Kerlix, Paulino. The patient tolerated the procedure and anesthesia well and without complication. The patient was transported from the operating room to the recovery room with vital signs stable and vascular status intact to all digits of the left foot. Thepatient was instructed to remain nonweightbearing to the operative extremity, to keep surgical dressing clean, dry and intact. The patient will be transferred back to the floor once anesthesia criteria is met. I will continue to round on and follow the patient in the inpatientsetting and provide recommendations to stabilize the patient for discharge. I will discuss with hospitalist about antibiotic coverage for discharge. Patient has history of kidney injury requiring dialysis from previous stent of IV antibiotics back in 2014.
--- NOTE | 2022-11-01 15:42 | PM.PN ---
Subjective Subjective: Events overnight. Today morning patient seen postoperatively. Has remained hemodynamically stable. Tmax since admission 101.5 Fahrenheit. Patient lying comfortably in bed. Did discuss possibility of need of IV antibiotics on discharge. Patient is worried about IV antibiotics at discharge as he has a history of renal failure requiring dialysis last time when he was on IV antibiotics for left ankle septic arthritis requiring dialysis. Patient also states he has a history of being addicted to oral pain medications. Denies using IV drugs ever in life. Vitals/I&O/Wt Last Vital Signs Temp 98.3 F 11/01/22 14:15 Pulse 75 11/01/22 14:15 Resp 17 11/01/22 14:15 BP 124/81 11/01/22 14:15 Pulse Ox 94 11/01/22 14:15 O2 Del Method Room Air 11/01/22 14:15 O2 Flow Rate 2 11/01/22 10:53 11/01/22 11/01/22 11/01/22 06:59 14:59 22:59 Intake Total 900 / 1560 352 / 352 Output Total 600 / 2600 Balance 300 / -1040 351 / 351 Weight last 48 hrs Weight 86.183 kg Weight 77.111 kg Physical Exam Narrative: General: No acute distress, AO x3 HEENT: PERRLA, pupils bilaterally equal and reactive, pallors not present Chest: Normal vesicular breath sounds, no added sounds, equal good air entry bilaterally CVS: S1-S2 regular, no murmurs, no tachycardia, no gallops, no rubs Abdomen: Soft, nontender, no organomegaly, bowel sounds present Neuro: No focal deficits, no facial deformity, AO x3, power 5/5 in all limbs Extremities: Swelling over left ankle, extremely painful to touch, no erythema or gross signs of cellulitis. Data 11/01/22 03:33 11/01/22 03:33 Micro: Microbiology 10/31/22 07:00 Gram Stain - Final Ankle - #1 Abscess Culture - Preliminary 11/01/22 10:00 Gram Stain - Final Ankle - #1 10/30/22 22:30 Chlamydia trachomatis (EARLENE) - Final Urine Random Neisseria gonorrhoeae (EARLENE) - Final 10/31/22 16:15 MRSA Culture - Final Nose 10/31/22 06:41 Blood Culture - Preliminary Blood NEGATIVE TO DATE 10/30/22 21:50 Blood Culture - Preliminary Blood NEGATIVE TO DATE A&P Assessment and plan (1) Septic arthritis of left ankle: Post ankle washout day 0. Appreciate podiatry recommendations. Follow-up OR and fluid cultures. Repeat blood cultures. MRSA negative. Stop vancomycin. Continue with Zosyn. Patient will most likely need IV antibiotics on discharge. We will continue to follow cultures. Plan for PICC line placement once blood culture remains negative For now continue with Dilaudid 0.4 mg every 6 hourly as needed. PT evaluation. Weightbearing as per podiatry team. sales representative sales manager alerted for possible home health versus SNF as per PT evaluation. Check urine drug screen. Plan to add drug screen to UA on admission. (2) Hypertension: Blood pressure less than 140/90 mmHg. Presently stable for now. Takes metoprolol 75 mg twice daily at home. For now start at 25 mg twice daily. (3) Swelling of left ankle joint: Patient with acute onset swelling of the left ankle joint which started 2 days prior to presentation. Differentials at this time include acute gouty attack versus septic arthritis. Continue with colchicine 0.6 mg twice daily. Patient has taken 2 doses of colchicine at home. Plan Restart other home medications including carbidopa levodopa, indomethacin, aspirin. Full code. Cardiac diet. N.p.o. after midnight. Heparin 5000 every 12 hourly for DVT prophylaxis Protonix for PUD prophylaxis. Attestations Medical Necessity Statement*: Requires further hospitalization for management of left septic arthritis ankle joint while cultures are followed up, postoperative care Diagnoses Septic arthritis of left ankle M00.9 Hypertension I10 Swelling of left ankle joint M25.472
[2022-11-01] MEDS: colchicine 0.6 mg Tablet PO (17:22)
--- NOTE | 2022-11-01 17:27 | ANE.PACU2 ---
Inpatient post-anesthesia follow up: Airway intact: Yes Vital signs: Temperature 98.3 F Pulse Rate 75 Respiratory Rate 17 Blood Pressure 124/81 Pulse Oximetry 94 Oxygen Delivery Me thod Room Air Oxygen Flow Rate 2 Fraction of Inspir ed Oxygen Hydration adequate: Yes Nausea and vomiting: No Pain level: 1 Mental status: Baseline
[2022-11-01 18:22] LABS: Crystals, Fluid SENT
--- NOTE | 2022-11-01 20:22 | PC.NURSE ---
This nurse went to answer pt call light, and pt began screaming at this nurse and being extremely belligerent. Pt demanding sinemet now and dilaudid. States I have this card and I will call and report you, this is the nurse managers card. Then he stated that if this nurse didn't do for him what he needed then he would fire this nurse, and get another one. This nurse asked the pt to please refrain from yelling at this nurse, and explain what the issues are with the medications. Pt states that his Sinemet is q6h and it is 3 hrs late, this nurse explained the earliest it could be administered per orders would be 1999. Pt con't to complain about the physician and his orders, and how the hospital always messes things up. Pt also stated that he was supposed to get Dilaudid now b/c it is q4h. Informed the pt that the physician had changed to PRN order to q6h, pt again became belligerent again stating that he had to have the pain medication sooner than 6h. When asked the pt about his pain level, he states that he has gout in his right great toe, however his left ankle where surgery was performed earlier had no pain, because the nerve block was in place. Pt was administered medications that were due, however he refused Metoprolol because it is not the dose he takes at home. He also refused his Lipitor because he doesn't take it at home, and he wants to talk to his physician regarding the medication. Will refer to hospitalist for review of pt c/o.
[2022-11-02] VITALS (8 sets, daily range): BP systolic 115–145; BP diastolic 73–86; PULSE 68–74; RESP 15–18; TEMP 36.2–36.7; O2SAT 92–97
[2022-11-02] MEDS: carbidopa-levodopa 25-250mg Tablet 1.5 EACH PO ×4 (02:00→20:16)
[2022-11-02 02:28] LABS: Basophils % 0.2 %; Hematocrit 44.1 % (42.0-52.0); Hemoglobin 14.1 g/dL (11.7-16.6); Lymphocytes # 0.8 10^3/uL (0.8-4.8); Lymphocytes % 5.8 %; Mean Corpuscular Hemoglobin 28.3 pg (28.0-34.0); Mean Corpuscular Volume 88.6 fl (80-94); Mean Platelet Volume 9.5 fL (7.4-10.4); Monocytes # 0.5 10^3/uL (0.2-0.9); Monocytes % 3.7 %; Neutrophils # 11.67 10^3/uL (1.8-7.7); Neutrophils % 89.6 %; Nucleated Red Blood Cells % 0 %; Platelet Count 289 10^3/cmm (130-400); Red Blood Count 4.98 10^6/uL (4.1-5.3); Red Cell Distribution Width 15.1 % (12.1-15.1)
[2022-11-02 02:58] LABS: Alanine Aminotransferase < 5 U/L (0-41); Albumin Level 3.4 g/dL (3.5-5.2); Alkaline Phosphatase 74 U/L (40-130); Anion Gap 14.9 (5-19); Aspartate Amino Transferase 9 U/L (0-40); Blood Urea Nitrogen 15 mg/dL (6-20); Calcium 9.3 mg/dL (8.5-10.5); Carbon Dioxide 25 mmol/L (22-29); Chloride 98 mmol/L (98-107); Globulin 3.9 g/dL (1.3-4.6); Glomerular Filtration Rate 99.3 mL/min (90-130); Glucose 159 mg/dL (65-115); Osmolality Calculated 282 mOsm/kg (285-295); Potassium 3.9 mmol/L (3.5-5.1); Sodium 134 mmol/L (136-145); Total Bilirubin 0.5 mg/dL (0.15-1.2); Total Protein 7.3 g/dL (6.6-8.7)
[2022-11-02] MEDS: piperacillin-tazobactam 3.375 GM in sodium chloride 0.9% (plus) 50 ML IV ×3 (03:26→19:25)
[2022-11-02] MEDS: aspirin 81 mg EC Tablet PO (05:47)
[2022-11-02] MEDS: HYDROmorphone 1 mg/mL INJ 1 mL 0.5 MG IVP ×3 (05:48→20:30)
--- NOTE | 2022-11-02 07:58 | PM.PN ---
Subjective Subjective: Patient seen at bedside this morning. Resting comfortably. Pain is under control. Patient states that his popliteal block has not worn off and he still does not have feeling in his left leg. Patient again expresses concern about IV antibiotics and kidney injury. Vitals/I&O/Wt Last Vital Signs Temp 97.8 F 11/02/22 03:35 Pulse 68 11/02/22 03:35 Resp 16 11/02/22 05:48 BP 115/73 11/02/22 03:35 Pulse Ox 92 11/02/22 03:35 O2 Del Method Room Air 11/02/22 03:35 O2 Flow Rate 2 11/01/22 10:53 11/01/22 11/02/22 11/02/22 22:59 06:59 14:59 Intake Total 480 / 832 50 / 882 Output Total 825 / 826 300 / 1126 Balance -345 / 6 -250 / -244 Physical Exam Narrative: BELOW IS A FOCUSED LOWER EXTREMITY EXAM GENERAL: A&O x 3 VASCULAR: DP/PT pulses palpable 2/4 with CFT intact, <3seconds to distal digits. Marked edema to left ankle in comparison to contralateral limb DERMATOLOGICAL: Left ankle surgical dressing clean, dry, intact with posterior splint. No strikethrough noted. MUSCULOSKELETAL: Deferred secondary to postoperative state NEUROLOGICAL: Neurological sensation to the affected foot and ankle is present through L4-S1 dermatomes with no hyper/hypoesthesias, negative Tinel or Valleix's sign Data 11/02/22 02:05 11/02/22 02:05 Micro: Microbiology 11/01/22 21:21 Blood Culture - Preliminary Blood SPECIMEN COLLECTED 11/01/22 21:17 Blood Culture - Preliminary Blood SPECIMEN COLLECTED 10/31/22 07:00 Gram Stain - Final Ankle - #1 Abscess Culture - Preliminary 11/01/22 10:00 Gram Stain - Final Ankle - #1 10/30/22 22:30 Chlamydia trachomatis (EARLENE) - Final Urine Random Neisseria gonorrhoeae (EARLENE) - Final 10/31/22 16:15 MRSA Culture - Final Nose 10/31/22 06:41 Blood Culture - Preliminary Blood NEGATIVE TO DATE 10/30/22 21:50 Blood Culture - Preliminary Blood NEGATIVE TO DATE A&P Assessment and plan (1) Septic arthritis of left ankle: (2) Swelling of left ankle joint: (3) Pain in left ankle: Plan LABS AND CLINICAL INFO: WBC 13.0 VSS ESR 50 CRP 219 Blood cultures: NGTD Left ankle aspirate cultures: Rare GPC's in pairs Cytology: Synovial WBC 60,264 PLAN: -Okay for diet -Patient is status post left ankle arthroscopy with washout -Continue broad-spectrum antibiotics until cultures result -Given patient's history of kidney injury from IV antibiotic use I think would be prudent to send the patient home on oral antibiotics if coverage is adequate. Obviously, choices will be limited depending on culture and sensitivity. -Follow-up on culture results -Trend labs -Nonweightbearing to left lower extremity. Recommend walker for ambulation to remain nonweightbearing to left lower extremity -Discharge plan: To be determined -Podiatry will continue to round on patient daily and provide recommendations. Attestations Medical Necessity Statement*: See above Coding Level of Care Code Acute Code for Chg Fwd Diagnoses Septic arthritis of left ankle M00.9 Swelling of left ankle joint M25.472 Pain in left ankle M25.572
[2022-11-02] MEDS: pantoprazole DR 40 mg Tablet PO (09:24)
[2022-11-02] MEDS: colchicine 0.6 mg Tablet PO ×2 (09:24→20:16)
--- NOTE | 2022-11-02 12:51 | P.CONIM_ITS ---
Providers/Reason For Consult Consulting Physician/Specialty*: Aileen Carvalho MD/ Infectious Disease Reason for Consult*: Septic arthritis Requesting Physician: Palmer Cifuentes MD Attending Physician: Palmer Cifuentes MD Primary Care Provider: Wali Moon MD History of Present Illness History of Present Illness Jude Burden is a 57 year old male who was admitted with acute onset swelling of the left ankle. Patient symptoms started 2 to 3 days prior to admission. States that he was in his usual state of health until suddenly his left ankle started to become swollen red and tender. He had fever going up to 10 1-1 02 Fahrenheit at home with chills. Patient has a known history of gout, last gout flare was 6 to 7 years ago. Of note also has a history of septic arthritis of the right ankle joint in 2014 which [place] [facility] with treatment course complicated by acute renal failure as a side effect from antibiotics. Patient does not recall what organism was treated or what antibiotic was used at that time. Initially it appeared patient may be having a gout flare and he was started on colchicine. Antibiotics were held off and synovial fluid aspirate was requested. This returned with a WBC count of more than 60,000 with predominant PMNLs. He underwent I&D of the septic joint on 10/31/2022, Gram stain is showing GPC's in pairs and chains awaiting for further identification. No history of trauma. No history of penetration from foreign body. Review of Systems General: Reports: 10 or more systems reviewed and unremarkable except in HPI and below Const: Denies: fever(s), chills or body aches Eyes: Denies: change in vision, blurry vision or photophobia ENMT: Reports: hoarseness; Denies: throat pain, enlarged tonsils, odynophagia or nasal congestion Card: Denies: chest pain, palpitations, irregular heart rhythm, edema, swelling of feet/ankles, lightheadedness, pre-syncope, dyspnea on exertion or orthopnea Resp: Denies: dyspnea, productive cough, non-productive cough, wheezing, stridor, pain on inspiration, change in phlegm color, hemoptysis or chest congestion GI: Denies: abdominal pain, nausea, vomiting, hematemesis, coffee ground emesis, dysphagia, heartburn, diarrhea, constipation, GI cramping, change in stool character, hematochezia or melena : Denies: flank pain, dysuria, urinary frequency, urinary urgency, urinary hesitancy or hematuria Musc: Denies: neck pain, back pain, extremity pain, joint swelling, joint war mth or deformity Neuro: Denies: headache(s), numbness in extremities, weakness in extremities, sensory changes, difficulty walking, frequent falls, dizziness, vertigo, be havioral changes, Slurred speech present or seizure-like activity Psych: Denies: anxiety, depression, suicidal ideation or homicidal ideation Endo: Denies: polyuria, polydipsia, tired all the time, cold intolerance or hot flashes [place]/Lymph: Denies: easy bruising or easy bleeding Medications/Allergies Home Medications Medication Instructions Recorded Confirmed Last Taken Type aspirin 81 mg tablet,delayed 81 mg PO QAM 05/01/22 10/31/22 06/04/22 06:00 History release (Adult Low Dose Aspirin) acetaminophen 500 mg tablet 1,000 mg PO Q12H PRN Pain 06/04/22 10/31/22 06/04/22 06:00 History colchicine 0.6 mg tablet 0.6 mg PO DAILY PRN gout #90 tabs 06/12/22 10/31/22 Unknown Rx omeprazole 40 mg capsule,delayed 40 mg PO QAM #90 caps 06/12/22 10/31/22 Unknown Rx release indomethacin 75 mg 75 mg PO BID PRN Gout/arthritis 08/21/22 10/31/22 Unknown Rx capsule,extended release attacks #30 caps ondansetron 4 mg disintegrating 4 mg PO Q8H PRN nausea and 09/06/22 10/31/22 Unknown Rx tablet vomiting #30 tabs metoprolol tartrate 50 mg tablet 75 mg PO BID #180 tabs 10/08/22 10/31/22 Unknown Rx carbidopa 25 mg-levodopa 250 mg 1.5 tab PO Q6H 10/31/22 10/31/22 Unknown History tablet Allergies Allergy/AdvReac Type Severity Reaction Status Date / Time allopurinol Allergy Unknown Unknown Verified 10/11/22 14:39 ketorolac [From Toradol] Allergy Unknown Unknown Verified 10/11/22 14:39 orphenadrine [From Norflex] Allergy Unknown Unknown Verified 10/11/22 14:39 promethazine [From Phenergan] Allergy Unknown Unknown Verified 10/11/22 14:39 tramadol Allergy Unknown Unknown Verified 10/11/22 14:39 methadone Allergy Unknown Verified 10/11/22 14:39 oxycodone Allergy Unknown Verified 10/11/22 14:39 narcotics Allergy Severe Unknown Uncoded 10/11/22 14:39 Current Medications Generic Name Dose Route Start Last Admin Trade Name Freq PRN Reason Stop Dose Admin Acetaminophen 650 mg 10/31/22 03:42 11/01/22 04:15 Acetaminophen 325 Mg Tablet PO 650 mg Q6H PRN Administration Mild/Mod Pain Or Temp >/= 101 Aspirin 81 mg 11/01/22 06:00 11/02/22 05:47 Aspirin 81 Mg Ec Tablet PO 81 mg QAM JB Administration Atorvastatin Calcium 40 mg 11/01/22 21:00 11/01/22 20:49 Atorvastatin 40 Mg Tablet PO Not Given BEDTIME JB Carbidopa/Levodopa 1.5 each 10/31/22 15:00 11/02/22 09:24 Carbidopa-Levodopa 25-250mg Tablet PO 1.5 each Q6H JB Administration Colchicine 0.6 mg 10/31/22 09:00 11/02/22 09:24 Colchicine 0.6 Mg Tablet PO 0.6 mg BID JB Administration Piperacillin Sod/Tazobactam 50 mls @ 12.5 mls/hr 10/31/22 11:30 11/02/22 03:26 Sod 3.375 gm/ Sodium Chloride IV 12.5 mls/hr Q8H JB Administration Metoprolol Tartrate 25 mg 10/31/22 21:00 11/01/22 20:49 Metoprolol Tartrate 25 Mg Tablet PO Not Given BID@0900,2100 JB Non-Formulary Medication 75 mg 10/31/22 18:00 11/01/22 17:21 Indomethacin PO Not Given BID JB Pantoprazole Sodium 40 mg 10/31/22 09:00 11/02/22 09:[address] 40 Mg Tablet PO 40 mg DAILY JB Administration PFSH Acute PFSH: Medical History Anxiety and depression CAD (coronary artery disease) Chewing tobacco nicotine dependence Age [age] (currently) Chronic right shoulder pain DDD (degenerative disc disease) Decreased glomerular filtration rate (GFR) Eustachian tube dysfunction GERD (gastroesophageal reflux disease) Gout Hearing loss Hypertension Knee pain, right Migraines Osteoarthritis Parkinsons disease Polyp of esophagus Polyp of tongue Pre-procedural examination Surgical History History of back surgery x6 different surgeries on the spine Family History Father Stroke Heart attack Brother Hypertension Sister Heart attack Social History Smoking and tobacco status: current every day smoker (chewing) smokeless tobacco Smokeless tobacco user: chewing tobacco Alcohol intake: former Desire information about alcohol rehabilitation?: No Substance/Drug Use: current Substance/Drug use frequency: other Other substance/drug use details: medical marijuana Desire information about substance/drug rehabilitation?: No Caregiver/support person: No Lives independently: Yes Household members: none Marital status: Single Highest education level completed: Some College, No Degree service: No Current occupational status: retired and disabled Do you think of yourself as: Straight/Heterosexual Current gender identity: Male Vitals/I&O/Wt Last Vital Signs Temp 97.7 F 11/02/22 08:00 Pulse 74 11/02/22 08:00 Resp 16 11/02/22 08:00 BP 122/79 11/02/22 08:00 Pulse Ox 94 11/02/22 08:00 O2 Del Method Room Air 11/02/22 03:35 O2 Flow Rate 2 11/01/22 10:53 11/01/22 11/02/22 11/02/22 22:59 06:59 14:59 Intake Total 480 / 832 50 / 882 Output Total 825 / 826 300 / 1126 300 / 300 Balance -345 / 6 -250 / -244 -300 / -300 Physical Exam Narrative: General: No acute distress, AO x3 HEENT: PERRLA, pupils bilaterally equal and reactive, pallors not present Chest: Normal vesicular breath sounds, no added sounds, equal good air entry bilaterally CVS: S1-S2 regular, no murmurs, no tachycardia, no gallops, no rubs Abdomen: Soft, nontender, no organomegaly, bowel sounds present Neuro: No focal deficits, no facial deformity, AO x3, power 5/5 in all limbs Extremities left lower extremity in surgical bandage not open for exam today Data 11/02/22 02:05 11/02/22 02:05 Micro: Microbiology 11/01/22 21:21 Blood Culture - Preliminary Blood SPECIMEN COLLECTED 11/01/22 21:17 Blood Culture - Preliminary Blood SPECIMEN COLLECTED 10/31/22 07:00 Gram Stain - Final Ankle - #1 Abscess Culture - Preliminary GPC in pairs and chains 11/01/22 10:00 Gram Stain - Final Ankle - #1 10/30/22 22:30 Chlamydia trachomatis (EARLENE) - Final Urine Random Neisseria gonorrhoeae (EARLENE) - Final 10/31/22 16:15 MRSA Culture - Final Nose Other data: [facility] [address] [place] [id number] EDEN BLACK, ADJUSTMENT EXAMINER NAME: Jude Burden LOC: [facility] U #: [id number] AGE/SX: 57/M ROOM: [facility] RE10/31/[address]: Palmer Cifuentes MD : 1965 BED: 1 DIS: FAX #: STATUS: ADM IN TLOC: Spec : [id number] Reid: 10/31/22 Status: COMP Req : [id number] Recd: 10/31/22-[address]: Juan Chirinos DPM Ordered: SYN Analysis Comments: Comment Left ankle Test Low Normal High Flag Reference Site Syn Color RED PALE YELLOW LEFT ANLKE --- 10/31/22923 --- Syn Color previously reported as: RED Syn Appear BLOODY CLEAR Syn WBC 44792 H 0-150 /uL Syn RBC 887 H 0-0 10^3/uL SYN [place] % 3.900 % SYN Poly % 96.100 % SYN [place]# 2.329 10^3/uL SYN Poly # 57.935 10^3/uL PATH YES A&P Assessment and plan (1) Septic arthritis of left ankle: Patient presenting to the hospital with acute swelling of the left ankle initial impression that of gout versus septic arthritis He subsequently underwent synovial fluid aspiration which showed 60,000 WBCs with 96% PMNLs raising concern for septic arthritis He is status post I&D of the left ankle on 10/31/2022. Gram stain is showing gram-positive cocci awaiting further identification and growth on cultures. Patient does not have any history of penetrating trauma. Of note he has a history of septic arthritis of the right ankle in 2014, unknown organism and antibiotic at that time. We will request records from [place]. Patient has multiple underlying orthopedic hardware including a right knee arthroplasty, right hip arthroplasty and cervical and lumbar hardware. He has no past history of prosthetic joint infection at any other site. If records indicate that the organism identified in 2014 is the same as organism now, would be concerned about potential hardware involvement and seeding from this, though would be unusual for this to happen at an interval of 8 years. Patient denies any current or past history of IV drug use. He has a history of oral narcotic and marijuana abuse, denies ever using IV drugs. At a minimum anticipate patient to need at least 6 weeks of IV antibiotics, further course to be decided based on final culture results and previous information as requested Blood cultures taken on November 01 pending currently We will follow with Coding Level of Care Code Acute Code for [facility] Diagnoses Septic arthritis of left ankle M00.9
[2022-11-02] MEDS: ibuprofen 800 mg tablet 400 MG PO ×2 (14:01→19:06)
[2022-11-02] MEDS: metoprolol tartrate 25 mg Tablet PO ×2 (14:30→20:17)
--- NOTE | 2022-11-02 15:11 | PM.PN ---
Subjective Subjective: No acute events overnight. Patient lying comfortably in bed. Able to have complete conversation. Maintaining saturation on room air. Has remained hemodynamically stable and afebrile in last 24 hours. Pain appropriately controlled. Discussed in detail regarding discharge planning going forward. Vitals/I&O/Wt Last Vital Signs Temp 97.1 F L 11/02/22 12:00 Pulse 72 11/02/22 12:00 Resp 17 11/02/22 12:00 BP 120/75 11/02/22 12:00 Pulse Ox 94 11/02/22 12:00 O2 Del Method Room Air 11/02/22 03:35 O2 Flow Rate 2 11/01/22 10:53 11/02/22 11/02/22 11/02/22 06:59 14:59 22:59 Intake Total 50 / 882 50 / 50 Output Total 300 / 1126 300 / 300 Balance -250 / -244 -250 / -250 Physical Exam Narrative: General: No acute distress, AO x3 HEENT: PERRLA, pupils bilaterally equal and reactive, pallors not present Chest: Normal vesicular breath sounds, no added sounds, equal good air entry bilaterally CVS: S1-S2 regular, no murmurs, no tachycardia, no gallops, no rubs Abdomen: Soft, nontender, no organomegaly, bowel sounds present Neuro: No focal deficits, no facial deformity, AO x3, power 5/5 in all limbs Extremities: Swelling over left ankle, extremely painful to touch, no erythema or gross signs of cellulitis. Data 11/02/22 02:05 11/02/22 02:05 Micro: Microbiology 11/01/22 21:21 Blood Culture - Preliminary Blood SPECIMEN COLLECTED 11/01/22 21:17 Blood Culture - Preliminary Blood SPECIMEN COLLECTED 10/31/22 07:00 Gram Stain - Final Ankle - #1 Abscess Culture - Preliminary 11/01/22 10:00 Gram Stain - Final Ankle - #1 10/30/22 22:30 Chlamydia trachomatis (EARLENE) - Final Urine Random Neisseria gonorrhoeae (EARLENE) - Final 10/31/22 16:15 MRSA Culture - Final Nose A&P Assessment and plan (1) Septic arthritis of left ankle: Post ankle washout day 1. Appreciate podiatry recommendations. OR cultures for now growing rare GPC's in chains. Follow-up OR and blood cultures. Continue with Zosyn. Patient will most likely need IV antibiotics on discharge. We will continue to follow cultures. Plan for PICC line placement once blood culture remains negative for next 24 hours. We will consult ID for further recommendations. For now continue with Dilaudid 0.4 mg every 8 hourly as needed. Patient allergic to multiple oral pain medications. He states at home he uses medical marijuana to deal with pain. We discussed and he is agreeable for Motrin trial for now while monitoring his renal functions. PT evaluation. Weightbearing as per podiatry team. manager wellness alerted for possible discharge with home health. Drug screen negative for IV drugs positive for opiates. (2) Hypertension: Blood pressure less than 140/90 mmHg. Presently stable for now. Continue with metoprolol 25 mg twice daily. (3) Swelling of left ankle joint: Patient with acute onset swelling of the left ankle joint which started 2 days prior to presentation. Differentials at this time include acute gouty attack versus septic arthritis. Continue with colchicine 0.6 mg twice daily. Patient has taken 2 doses of colchicine at home. Plan Restart other home medications including carbidopa levodopa, indomethacin, aspirin. Full code. Cardiac diet. N.p.o. after midnight. Heparin 5000 every 12 hourly for DVT prophylaxis Protonix for PUD prophylaxis. Attestations Medical Necessity Statement*: Requires further hospitalization for management of septic arthritis of left ankle while OR cultures are followed to determine outpatient antibiotic therapy and safe discharge planning is sought. Diagnoses Septic arthritis of left ankle M00.9 Hypertension I10 Swelling of left ankle joint M25.472
[2022-11-02] MEDS: vancomycin 1,250 MG/250 ML PIGGYBACK 250 MG IV (15:35)
[2022-11-02] MEDS: atorvastatin 40 mg Tablet PO (20:16)
--- NOTE | 2022-11-02 21:41 | PC.NURSE ---
PT COMPLAINT At start of shift pt was very upset about changes in his pain meds. Says he had it all figured out and was working well then they come in and change every thing around. Says noone bothered to let him know that the Dilaudid was being changed from Q6H to Q8H and he was thinking he could have it at 2030. Demanding Dr be called or come up to see him. Dr Carvalho was notified and med was changed back to Q6H. Pt happy now. Questions all his other meds as well and everything was reviewed with him.
[2022-11-03] VITALS (7 sets, daily range): BP systolic 132–173; BP diastolic 79–96; PULSE 60–66; RESP 16–20; TEMP 36.1–36.6; O2SAT 93–98
--- NOTE | 2022-11-03 00:40 | PC.PHAR ---
Trough scheduled for 11/04 0100, please hold 0200 dose until drawn. will continue to follow. Thank you, Libra Johnson [facility]
[2022-11-03] MEDS: vancomycin 1,250 MG/250 ML PIGGYBACK 250 MG IV ×2 (01:52→13:33)
[2022-11-03] MEDS: carbidopa-levodopa 25-250mg Tablet 1.5 EACH PO ×4 (01:53→20:25)
[2022-11-03] MEDS: HYDROmorphone 1 mg/mL INJ 1 mL 0.5 MG IVP ×3 (02:32→20:42)
[2022-11-03] MEDS: piperacillin-tazobactam 3.375 GM in sodium chloride 0.9% (plus) 50 ML IV ×3 (03:01→20:29)
[2022-11-03] MEDS: ibuprofen 800 mg tablet 400 MG PO ×3 (03:03→20:27)
[2022-11-03 05:14] LABS: Basophils % 0.1 %; Hematocrit 43.3 % (42.0-52.0); Hemoglobin 13.8 g/dL (11.7-16.6); Lymphocytes # 1.6 10^3/uL (0.8-4.8); Lymphocytes % 14.5 %; Mean Corpuscular HGB Conc 31.9 g/dL (30.0-36.0); Mean Corpuscular Hemoglobin 28.3 pg (28.0-34.0); Mean Corpuscular Volume 88.7 fl (80-94); Mean Platelet Volume 9.3 fL (7.4-10.4); Monocytes # 0.6 10^3/uL (0.2-0.9); Monocytes % 5.2 %; Neutrophils # 8.76 10^3/uL (1.8-7.7); Neutrophils % 79.7 %; Nucleated Red Blood Cells % 0 %; Platelet Count 320 10^3/cmm (130-400); Red Blood Count 4.88 10^6/uL (4.1-5.3); Red Cell Distribution Width 15.4 % (12.1-15.1)
[2022-11-03 05:39] LABS: Alanine Aminotransferase < 5 U/L (0-41); Alkaline Phosphatase 73 U/L (40-130); Anion Gap 16.9 (5-19); Aspartate Amino Transferase 11 U/L (0-40); Blood Urea Nitrogen 19 mg/dL (6-20); Calcium 8.8 mg/dL (8.5-10.5); Carbon Dioxide 24 mmol/L (22-29); Chloride 100 mmol/L (98-107); Globulin 3.7 g/dL (1.3-4.6); Glomerular Filtration Rate 99.3 mL/min (90-130); Glucose 127 mg/dL (65-115); Osmolality Calculated 290 mOsm/kg (285-295); Sodium 138 mmol/L (136-145); Total Bilirubin 0.3 mg/dL (0.15-1.2); Total Protein 6.7 g/dL (6.6-8.7)
[2022-11-03] MEDS: aspirin 81 mg EC Tablet PO (05:46)
[2022-11-03 05:54] LABS: Potassium 2.9 mmol/L (3.5-5.1)
[2022-11-03] MEDS: pantoprazole DR 40 mg Tablet PO (08:54)
[2022-11-03] MEDS: colchicine 0.6 mg Tablet PO ×2 (08:54→20:28)
--- NOTE | 2022-11-03 10:17 | PM.PN ---
Subjective Subjective: Patient seen at bedside this morning. Resting comfortably. Says the pain is well controlled. Denies any constitutional symptoms. Denies any overnight events. Vitals/I&O/Wt Last Vital Signs Temp 97.6 F 11/03/22 08:00 Pulse 66 11/03/22 08:00 Resp 18 11/03/22 08:00 BP 143/79 11/03/22 08:00 Pulse Ox 98 11/03/22 08:00 O2 Del Method Room Air 11/03/22 08:00 O2 Flow Rate 2 11/01/22 10:53 11/02/22 11/03/22 11/03/22 22:59 06:59 14:59 Intake Total 540 / 810 660 / 1470 Output Total 350 / 650 550 / 1200 Balance 190 / 160 110 / 270 Physical Exam Narrative: BELOW IS A FOCUSED LOWER EXTREMITY EXAM GENERAL: A&O x 3 VASCULAR: DP/PT pulses palpable 2/4 with CFT intact, <3seconds to distal digits. Marked edema to left ankle in comparison to contralateral limb DERMATOLOGICAL: Left ankle surgical dressing clean, dry, intact with posterior splint. No strikethrough noted. MUSCULOSKELETAL: Deferred secondary to postoperative state NEUROLOGICAL: Neurological sensation to the affected foot and ankle is present through L4-S1 dermatomes with no hyper/hypoesthesias, negative Tinel or Valleix's sign Data 11/03/22 04:25 11/03/22 04:25 Micro: Microbiology 11/01/22 21:21 Blood Culture - Preliminary Blood NEGATIVE TO DATE 11/01/22 21:17 Blood Culture - Preliminary Blood NEGATIVE TO DATE 11/01/22 10:00 Anaerobic Culture - Preliminary Ankle - #2 10/31/22 07:00 Gram Stain - Final Ankle - #1 Abscess Culture - Preliminary 11/01/22 10:00 Gram Stain - Final Ankle - #1 Abscess Culture - Preliminary A&P Assessment and plan (1) Septic arthritis of left ankle: (2) Swelling of left ankle joint: (3) Pain in left ankle: Plan LABS AND CLINICAL INFO: WBC 13.0-->11.0 VSS ESR 50 CRP 219 Blood cultures: NGTD Left ankle aspirate cultures: Rare GPC's in pairs preliminary Cytology: Synovial WBC 60,264 PLAN: -Okay for diet -Patient is status post left ankle arthroscopy with washout. Patient has remained hemodynamically stable. -Continue broad-spectrum antibiotics until cultures result -Follow-up on culture results -Trend labs -Nonweightbearing to left lower extremity. Recommend walker for ambulation to remain nonweightbearing to left lower extremity. Recommend wheelchair/walker for discharge -Discharge plan: Patient is okay to discharge home with home health from podiatry standpoint after PICC line is received and cultures have resulted and final antibiotic recommendations have been made by infectious disease. -Okay to discharge from podiatry standpoint once final antibiotic recommendations have been made -Patient will follow up within 1 week of discharge with podiatry. Podiatry office will arrange appointment for patient. Attestations Medical Necessity Statement*: See above Coding Level of Care Code Acute Code for [facility] Diagnoses Septic arthritis of left ankle M00.9 Swelling of left ankle joint M25.472 Pain in left ankle M25.572
--- NOTE | 2022-11-03 10:54 | XRR_ITS ---
PROCEDURE INFORMATION: Exam: XR Chest Exam date and time: 11/03/2022 11:27 AM Age: 57 years old Clinical indication: Device placement; Picc; Additional info: Post picc, flor placing in 256 TECHNIQUE: Imaging protocol: Radiologic exam of the chest. Views: 1 view. COMPARISON: CR (CHEST, ) 10/30/2022 9:52 PM FINDINGS: Tubes, catheters and devices: Left upper extremity PICC terminates in the region of the superior cavoatrial junction. Lungs: Unremarkable. No consolidation. Pleural spaces: Unremarkable. No pleural effusion. No pneumothorax. Heart/Mediastinum: Unremarkable. No cardiomegaly. Bones/joints: Spinal fusion hardware is seen in the cervical spine. XR/XR chest 1V portable [id number] IMPRESSION: Left upper extremity PICC terminates in the region of the superior cavoatrial junction.
--- NOTE | 2022-11-03 11:00 | PC.NURSE ---
Single lumen PICC placed to left brachial vein without difficulty. Pt to receive 6 weeks IV antibiotics. Pt requested sedation prior to PICC placement. Educated that sedation is not given per facility protocol prior to PICC placement, but we could give his IV dose of dilaudid prior to procedure for comfort. Pt agreed. Mid-arm circumference measured 10 cm from left AC 27 cm. Trimmed cath length 42 cm with 1 cm external length noted. CXR shows cath tip in superior cavoatrial junction, in good position for use per radiologist. Dressing due to be changed 11/04/22. Report given to bedside nurseGracia. Pt tolerated procedure well.
[2022-11-03] MEDS: potassium chloride ER 20 mEq Tablet 80 MEQ PO (13:25)
[2022-11-03] MEDS: metoprolol tartrate 25 mg Tablet PO ×2 (13:26→20:28)
--- NOTE | 2022-11-03 13:34 | PC.SOCIAL ---
Pg 2 IMM Explained to pt Pg 2 IMM. No questions voiced. Provided pt a copy. Initialed, dated, & timed a copy & placed in chart.
[2022-11-03] MEDS: amlodipine 5 mg Tablet PO (14:15)
--- NOTE | 2022-11-03 16:36 | P.PN_ITS ---
Subjective Subjective: No acute events overnight. Patient has remained hemodynamically stable and afebrile. Today morning on examination patient was fairly upset as his home dose of metoprolol has not been started. We discussed that unfortunately on admission he was in sepsis with hypotension for which his antihypertensives were withheld and currently with 25 mg of metoprolol he is having heart rate running in low 60s and we are concerned that going up to his home dose of 75 mg he can have significant bradycardia. We discussed that blood pressures are better now and it would be prudent to start a second agent. Patient remained fairly upset and continued to raise his voice. During examination had a phone conversation in front of the patient with his outpatient spring repairer helper hand who agreed with the current plan of changes in the medications. After that patient was apologetic and was agreeable to changes in the medications. Vitals/I&O/Wt Last Vital Signs Temp 97.7 F 11/03/22 11:51 Pulse 61 11/03/22 11:51 Resp 18 11/03/22 11:51 BP 159/85 11/03/22 11:51 Pulse Ox 96 11/03/22 11:51 O2 Del Method Room Air 11/03/22 11:51 O2 Flow Rate 2 11/01/22 10:53 11/03/22 11/03/22 11/03/22 06:59 14:59 22:59 Intake Total 660 / 1470 410 / 410 Output Total 550 / 1200 Balance 110 / 270 410 / 410 Physical Exam Narrative: General: No acute distress, AO x3 HEENT: PERRLA, pupils bilaterally equal and reactive, pallors not present Chest: Normal vesicular breath sounds, no added sounds, equal good air entry bilaterally CVS: S1-S2 regular, no murmurs, no tachycardia, no gallops, no rubs Abdomen: Soft, nontender, no organomegaly, bowel sounds present Neuro: No focal deficits, no facial deformity, AO x3, power 5/5 in all limbs Extremities: Swelling over left ankle, extremely painful to touch, no erythema or gross signs of cellulitis. Data 11/03/22 04:25 11/03/22 04:25 Micro: Microbiology 11/01/22 10:00 Gram Stain - Final Ankle - #1 Abscess Culture - Preliminary 10/31/22 07:00 Gram Stain - Final Ankle - #1 Abscess Culture - Preliminary 11/01/22 21:21 Blood Culture - Preliminary Blood NEGATIVE TO DATE 11/01/22 21:17 Blood Culture - Preliminary Blood NEGATIVE TO DATE 11/01/22 10:00 Anaerobic Culture - Preliminary Ankle - #2 A&P Assessment and plan (1) Septic arthritis of left ankle: Post ankle washout day 2. Appreciate podiatry recommendations. Follow-up cultures. Continue with Zosyn and vancomycin. MRSA negative. Patient will need IV antibiotics for 14 days on discharge. Get PICC line. Blood cultures have remained negative. Appreciate podiatry and ID recommendations. For now continue with Dilaudid 0.4 mg every 8 hourly as needed. Patient allergic to multiple oral pain medications. He states at home he uses medical marijuana to deal with pain. We discussed and he is agreeable for Motrin trial for now while monitoring his renal functions. PT evaluation. Weightbearing as per podiatry team. residential program manager alerted for possible discharge with home health. Drug screen negative for IV drugs positive for opiates. (2) Hypertension: Blood pressure less than 140/90 mmHg. Blood pressures getting elevated today. Continue with metoprolol 25 mg twice daily. Unable to increase dose of metoprolol given heart rates running in low 60s. Start on 5 mg of amlodipine daily. Monitor blood pressures and heart rate. Depending on the same will uptitrate the dose of metoprolol to home dose as requested by patient. (3) Swelling of left ankle joint: Plan Restart other home medications including carbidopa levodopa, indomethacin, aspirin. Replete 80 mg of oral potassium today. Full code. Cardiac diet. Heparin 5000 every 12 hourly for DVT prophylaxis Protonix for PUD prophylaxis. Attestations Medical Necessity Statement*: Requires further hospitalization for management of septic arthritis of left ankle while culture results are followed up for outpatient antibiotic therapy Diagnoses Septic arthritis of left ankle M00.9 Hypertension I10 Swelling of left ankle joint M25.472
[2022-11-03] MEDS: heparin 5,000 unit/mL INJ 1 mL 5000 UNIT SUBCUT (17:54)
[2022-11-03] MEDS: atorvastatin 40 mg Tablet PO (20:28)
[2022-11-04] VITALS (8 sets, daily range): BP systolic 148–173; BP diastolic 88–99; PULSE 61–86; RESP 16–19; TEMP 36.4–36.6; O2SAT 94–98
[2022-11-04 02:11] LABS: Basophils % 0.3 %; Eosinophils # 0.1 10^3/uL (0.0-0.8); Eosinophils % 1.1 %; Hematocrit 44.7 % (42.0-52.0); Hemoglobin 13.8 g/dL (11.7-16.6); Mean Corpuscular HGB Conc 30.9 g/dL (30.0-36.0); Mean Corpuscular Hemoglobin 28.1 pg (28.0-34.0); Mean Platelet Volume 9.4 fL (7.4-10.4); Monocytes # 0.5 10^3/uL (0.2-0.9); Monocytes % 6.4 %; Neutrophils # 4.42 10^3/uL (1.8-7.7); Neutrophils % 62.9 %; Nucleated Red Blood Cells % 0 %; Platelet Count 324 10^3/cmm (130-400); Red Blood Count 4.91 10^6/uL (4.1-5.3); Red Cell Distribution Width 15.5 % (12.1-15.1)
[2022-11-04 02:27] LABS: Vancomycin Trough 18.8 ug/mL (10-15)
[2022-11-04] MEDS: HYDROmorphone 1 mg/mL INJ 1 mL 0.5 MG IVP ×3 (02:33→18:48)
[2022-11-04] MEDS: carbidopa-levodopa 25-250mg Tablet 1.5 EACH PO ×4 (02:50→20:36)
[2022-11-04] MEDS: ibuprofen 800 mg tablet 400 MG PO ×3 (02:50→18:49)
[2022-11-04] MEDS: vancomycin 1,250 MG/250 ML PIGGYBACK 250 MG IV (02:52)
--- NOTE | 2022-11-04 02:59 | PC.PHAR ---
Vancomycin Trough 18.8 please continue with dose. Will continue to follow. Thank you, Libra
[2022-11-04] MEDS: piperacillin-tazobactam 3.375 GM in sodium chloride 0.9% (plus) 50 ML IV (04:56)
[2022-11-04] MEDS: aspirin 81 mg EC Tablet PO (05:01)
[2022-11-04] MEDS: heparin 5,000 unit/mL INJ 1 mL 5000 UNIT SUBCUT ×2 (05:01→18:49)
[2022-11-04] MEDS: pantoprazole DR 40 mg Tablet PO (08:07)
[2022-11-04] MEDS: colchicine 0.6 mg Tablet PO ×2 (08:07→18:49)
[2022-11-04] MEDS: amlodipine 5 mg Tablet PO ×2 (08:07→12:49)
[2022-11-04] MEDS: metoprolol tartrate 25 mg Tablet PO ×2 (08:15→12:49)
--- NOTE | 2022-11-04 09:10 | P.PN_ITS ---
Subjective Subjective: Patient seen at bedside this morning. Resting comfortably. Agreeable to PICC line placement and IV antibiotic therapy. Status post left ankle arthroscopy with washout. Pain is well controlled. Vitals/I&O/Wt Last Vital Signs Temp 97.9 F 11/04/22 07:55 Pulse 67 11/04/22 07:55 Resp 18 11/04/22 07:55 BP 173/99 11/04/22 07:55 Pulse Ox 98 11/04/22 07:55 O2 Del Method Room Air 11/04/22 07:55 O2 Flow Rate 2 11/01/22 10:53 11/03/22 11/04/22 11/04/22 22:59 06:59 14:59 Intake Total 530 / 1190 300 / 1490 Output Total 1050 / 1050 Balance -520 / 140 300 / 440 Physical Exam Narrative: BELOW IS A FOCUSED LOWER EXTREMITY EXAM GENERAL: A&O x 3 VASCULAR: DP/PT pulses palpable 2/4 with CFT intact, <3seconds to distal digits. Marked edema to left ankle in comparison to contralateral limb DERMATOLOGICAL: Left ankle surgical dressing clean, dry, intact with posterior splint. No strikethrough noted. MUSCULOSKELETAL: Deferred secondary to postoperative state NEUROLOGICAL: Neurological sensation to the affected foot and ankle is present through L4-S1 dermatomes with no hyper/hypoesthesias, negative Tinel or Valleix's sign Data 11/04/22 00:45 11/03/22 04:25 Micro: Microbiology 11/01/22 10:00 Anaerobic Culture - Preliminary Ankle - #2 11/01/22 10:00 Gram Stain - Final Ankle - #1 Abscess Culture - Preliminary 10/31/22 07:00 Gram Stain - Final Ankle - #1 Abscess Culture - Preliminary A&P Assessment and plan (1) Septic arthritis of left ankle: (2) Swelling of left ankle joint: (3) Pain in left ankle: Plan LABS AND CLINICAL INFO: WBC 7.0 VSS ESR 50 CRP 219 Blood cultures: NGTD Left ankle aspirate cultures: Rare GPC's in pairs preliminary Cytology: Synovial WBC 60,264 PLAN: -Okay for diet -Patient is status post left ankle arthroscopy with washout. Patient has remain ed hemodynamically stable. -Continue broad-spectrum antibiotics until cultures result -Follow-up on culture results -Trend labs -Nonweightbearing to left lower extremity. Recommend walker for ambulation to remain nonweightbearing to left lower extremity. Recommend wheelchair/walker for discharge -Discharge plan: Patient is okay to discharge home with home health from podiatry standpoint after PICC line is received and cultures have resulted and final antibiotic recommendations have been made by infectious disease. -Okay to discharge from podiatry standpoint once final antibiotic recommendati ons have been made -Patient will follow up within 1 week of discharge with podiatry. Podiatry office will arrange appointment for patient. Attestations Medical Necessity Statement*: See above Coding Level of Care Code Acute Code for Chg Fwd Diagnoses Septic arthritis of left ankle M00.9 Swelling of left ankle joint M25.472 Pain in left ankle M25.572
--- NOTE | 2022-11-04 13:02 | PM.PN ---
Subjective Subjective: No acute events overnight. Has remained hemodynamically stable and afebrile. Laying comfortably in bed. Blood pressures trending up a little bit. Vitals/I&O/Wt Last Vital Signs Temp 97.6 F 11/04/22 11:47 Pulse 63 11/04/22 11:47 Resp 18 11/04/22 11:47 BP 156/93 11/04/22 11:47 Pulse Ox 97 11/04/22 11:47 O2 Del Method Room Air 11/04/22 11:47 O2 Flow Rate 2 11/01/22 10:53 11/03/22 11/04/22 11/04/22 22:59 06:59 14:59 Intake Total 530 / 1190 300 / 1490 120 / 120 Output Total 1050 / 1050 Balance -520 / 140 300 / 440 120 / 120 Physical Exam Narrative: General: No acute distress, AO x3 HEENT: PERRLA, pupils bilaterally equal and reactive, pallors not present Chest: Normal vesicular breath sounds, no added sounds, equal good air entry bilaterally CVS: S1-S2 regular, no murmurs, no tachycardia, no gallops, no rubs Abdomen: Soft, nontender, no organomegaly, bowel sounds present Neuro: No focal deficits, no facial deformity, AO x3, power 5/5 in all limbs Extremities: Swelling over left ankle, extremely painful to touch, no erythema or gross signs of cellulitis. Data 11/04/22 00:45 11/03/22 04:25 Micro: Microbiology 10/31/22 07:00 Gram Stain - Final Ankle - #1 Abscess Culture - Preliminary 11/01/22 10:00 Gram Stain - Final Ankle - #1 Abscess Culture - Preliminary 11/01/22 10:00 Anaerobic Culture - Preliminary Ankle - #2 A&P Assessment and plan (1) Septic arthritis of left ankle: Post ankle washout day 2. Appreciate podiatry recommendations. Follow-up cultures. Continue with Zosyn and vancomycin. MRSA negative. Patient will need IV antibiotics for 14 days on discharge. Get PICC line. Blood cultures have remained negative. Appreciate podiatry and ID recommendations. For now continue with Dilaudid 0.4 mg every 8 hourly as needed. Patient allergic to multiple oral pain medications. He states at home he uses medical marijuana to deal with pain. We discussed and he is agreeable for Motrin trial for now while monitoring his renal functions. PT evaluation. Weightbearing as per podiatry team. 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 Drug screen negative for IV drugs positive for opiates. (2) Hypertension: Blood pressure less than 140/90 mmHg. Blood pressures getting elevated today. Continue with metoprolol 25 mg twice daily. Unable to increase dose of metoprolol given heart rates running in low 60s. Start on 5 mg of amlodipine daily. Monitor blood pressures and heart rate. Depending on the same will uptitrate the dose of metoprolol to home dose as requested by patient. (3) Swelling of left ankle joint: Plan Restart other home medications including carbidopa levodopa, indomethacin, aspirin. Replete 80 mg of oral potassium today. Plan for the day: Follow-up cultures. For now stop vancomycin and Zosyn. Switch to ceftriaxone 2 g IV daily. If cultures remain negative plan to discharge on IV ceftriaxone 2 g daily for next 6 weeks while outpatient cultures will be followed. Patient will have weekly CBC, LFT and creatinine while being on antibiotics which will be followed through ID clinic. Patient is agreeable. He is agreeable to follow-up as an outpatient daily to GI Lab for IV antibiotics through PICC line. PICC line dressing and wound dressing at GI Lab. Will need to set up a ride. We will try to arrange for 1 leg scooter through case management. Increase amlodipine to 10 mg daily, metoprolol to 50 mg daily. Goal blood pressure less than 140/90 mmHg. Uptitrate medications accordingly. Full code. Cardiac diet. Heparin 5000 every 12 hourly for DVT prophylaxis Protonix for PUD prophylaxis. Attestations Medical Necessity Statement*: Requires further hospitalization for management of left ankle septic arthritis while cultures are followed up and outpatient antibiotics are set up Diagnoses Septic arthritis of left ankle M00.9 Hypertension I10 Swelling of left ankle joint M25.472
[2022-11-04] MEDS: cefTRIAXone 2,000 MG in sodium chloride 0.9% (plus) 50 ML 100 MG IV (13:52)
[2022-11-04] MEDS: atorvastatin 40 mg Tablet PO (20:37)
[2022-11-04] MEDS: metoprolol tartrate 25 mg Tablet 50 MG PO (20:37)
[2022-11-05 01:04] VITALS: RESP 18
[2022-11-05] MEDS: HYDROmorphone 1 mg/mL INJ 1 mL 0.5 MG IVP ×2 (01:04→09:34)
[2022-11-05] MEDS: ibuprofen 800 mg tablet 400 MG PO ×2 (02:58→09:35)
[2022-11-05] MEDS: carbidopa-levodopa 25-250mg Tablet 1.5 EACH PO ×2 (02:59→08:53)
[2022-11-05 04:00] VITALS: BP 157/93; PULSE 64; RESP 18; TEMP 36.7; O2SAT 95
[2022-11-05] MEDS: heparin 5,000 unit/mL INJ 1 mL 5000 UNIT SUBCUT (06:25)
[2022-11-05] MEDS: aspirin 81 mg EC Tablet PO (06:25)
[2022-11-05 06:29] LABS: Basophils % 0.7 %; Eosinophils # 0.3 10^3/uL (0.0-0.8); Eosinophils % 5.3 %; Hematocrit 43.7 % (42.0-52.0); Hemoglobin 13.6 g/dL (11.7-16.6); Lymphocytes # 1.8 10^3/uL (0.8-4.8); Lymphocytes % 30.7 %; Mean Corpuscular HGB Conc 31.1 g/dL (30.0-36.0); Mean Corpuscular Hemoglobin 27.8 pg (28.0-34.0); Mean Corpuscular Volume 89.2 fl (80-94); Mean Platelet Volume 8.9 fL (7.4-10.4); Monocytes # 0.4 10^3/uL (0.2-0.9); Monocytes % 7.2 %; Neutrophils # 3.34 10^3/uL (1.8-7.7); Neutrophils % 55.8 %; Nucleated Red Blood Cells % 0 %; Platelet Count 294 10^3/cmm (130-400); Red Cell Distribution Width 14.9 % (12.1-15.1)
[2022-11-05 08:00] VITALS: BP 138/88; PULSE 68; RESP 18; TEMP 36.5; O2SAT 96
[2022-11-05] MEDS: pantoprazole DR 40 mg Tablet PO (08:53)
[2022-11-05] MEDS: colchicine 0.6 mg Tablet PO (08:53)
[2022-11-05] MEDS: amlodipine 5 mg Tablet 10 MG PO (08:53)
[2022-11-05] MEDS: metoprolol tartrate 25 mg Tablet 50 MG PO (08:58)
[2022-11-05] MEDS: cefTRIAXone 2,000 MG in sodium chloride 0.9% (plus) 50 ML 100 MG IV (09:35)
--- NOTE | 2022-11-05 10:45 | P.PN_ITS ---
Subjective Subjective: Patient seen at bedside this morning. Resting comfortably. Denies any overnight events. States that pain is well controlled. He states he is ready to get out of the hospital Vitals/I&O/Wt Last Vital Signs Temp 97.7 F 11/05/22 08:00 Pulse 68 11/05/22 08:00 Resp 18 11/05/22 08:00 BP 138/88 11/05/22 08:00 Pulse Ox 96 11/05/22 08:00 O2 Del Method Room Air 11/05/22 08:00 O2 Flow Rate 2 11/01/22 10:53 11/04/22 11/05/22 11/05/22 22:59 06:59 14:59 Intake Total 240 / 650 240 / 240 Output Total 200 / 200 220 / 420 Balance -200 / 210 20 / 230 240 / 240 Physical Exam Narrative: BELOW IS A FOCUSED LOWER EXTREMITY EXAM GENERAL: A&O x 3 VASCULAR: DP/PT pulses palpable 2/4 with CFT intact, <3seconds to distal digits. Marked edema to left ankle in comparison to contralateral limb DERMATOLOGICAL: Left ankle surgical dressing clean, dry, intact with posterior splint. No strikethrough noted. MUSCULOSKELETAL: Deferred secondary to postoperative state NEUROLOGICAL: Neurological sensation to the affected foot and ankle is present through L4-S1 dermatomes with no hyper/hypoesthesias, negative Tinel or Valleix's sign Data 11/05/22 06:09 11/03/22 04:25 Micro: Microbiology 11/01/22 10:00 Gram Stain - Final Ankle - #1 Abscess Culture - Preliminary 10/31/22 06:41 Blood Culture - Final Blood NO GROWTH AFTER 5 DAYS 10/30/22 21:50 Blood Culture - Final Blood NO GROWTH AFTER 5 DAYS 11/01/22 10:00 Anaerobic Culture - Preliminary Ankle - #2 10/31/22 07:00 Gram Stain - Final Ankle - #1 Abscess Culture - Preliminary A&P Assessment and plan (1) Septic arthritis of left ankle: (2) Swelling of left ankle joint: (3) Pain in left ankle: Plan LABS AND CLINICAL INFO: WBC 6.0 VSS ESR 50 CRP 219 Blood cultures: NGTD Left ankle aspirate cultures: Rare GPC's in pairs preliminary Cytology: Synovial WBC 60,264 PLAN: -Okay for diet -Patient is status post left ankle arthroscopy with washout. Patient has remained hemodynamically stable. -Continue broad-spectrum antibiotics until cultures result -Follow-up on culture results -Trend labs -Patient to leave surgical dressing clean, dry, intact until his follow-up outpatient -Nonweightbearing to left lower extremity. Recommend walker for ambulation to remain nonweightbearing to left lower extremity. Recommend wheelchair/walker for discharge -Discharge plan: Patient is okay to discharge home with home health from podiatry standpoint after PICC line is received and cultures have resulted and final antibiotic recommendations have been made by infectious disease. -Okay to discharge from podiatry standpoint once final antibiotic recommendations have been made -Patient will follow up within 1 week of discharge with podiatry. Podiatry office will arrange appointment for patient. Attestations Medical Necessity Statement*: See above Coding Level of Care Code Acute Code for [facility] Fwd Diagnoses Septic arthritis of left ankle M00.9 Swelling of left ankle joint M25.472 Pain in left ankle M25.572
--- NOTE | 2022-11-05 11:22 | PM.PN ---
Subjective Subjective: Infectious disease progress note no acute interim events Picc line placed Cx remains negative to date Medications: Reviewed: Yes Vitals/I&O/Wt Last Vital Signs Temp 97.7 F 11/05/22 08:00 Pulse 68 11/05/22 08:00 Resp 18 11/05/22 08:00 BP 138/88 11/05/22 08:00 Pulse Ox 96 11/05/22 08:00 O2 Del Method Room Air 11/05/22 08:00 O2 Flow Rate 2 11/01/22 10:53 11/04/22 11/05/22 11/05/22 22:59 06:59 14:59 Intake Total 240 / 650 240 / 240 Output Total 200 / 200 220 / 420 Balance -200 / 210 20 / 230 240 / 240 Physical Exam Narrative: General: No acute distress, AO x3 HEENT: PERRLA, pupils bilaterally equal and reactive, pallors not present Chest: Normal vesicular breath sounds, no added sounds, equal good air entry bilaterally CVS: S1-S2 regular, no murmurs, no tachycardia, no gallops, no rubs Abdomen: Soft, nontender, no organomegaly, bowel sounds present Neuro: No focal deficits, no facial deformity, AO x3, power 5/5 in all limbs Extremities: LLE in surgical dressing Data 11/05/22 06:09 11/03/22 04:25 Micro: Microbiology 11/01/22 10:00 Gram Stain - Final Ankle - #1 Abscess Culture - Preliminary 10/31/22 06:41 Blood Culture - Final Blood NO GROWTH AFTER 5 DAYS 10/30/22 21:50 Blood Culture - Final Blood NO GROWTH AFTER 5 DAYS 11/01/22 10:00 Anaerobic Culture - Preliminary Ankle - #2 10/31/22 07:00 Gram Stain - Final Ankle - #1 Abscess Culture - Preliminary A&P Assessment and plan (1) Septic arthritis of left ankle: Patient presenting to the hospital with acute swelling of the left ankle. He subsequently underwent synovial fluid aspiration which showed 60,000 WBCs with 96% PMNLs raising concern for septic arthritis He is status post I&D of the left ankle on 10/31/2022. Gram stain is showing gram-positive cocci without other growth on cx. Pathology without identified crystals Will send out synovial fluid for echoechofire joint infection DNA testing- discussed with slab installer No history of penetrating trauma. Of note he has a history of septic arthritis of the [place] right ankle in 2014, unknown organism and antibiotic at that time. He has h/o skin grafting to affected leg however no underlying prosthetic graft material. We have requested records from [place], [place], still pending Patient has multiple underlying orthopedic hardware including a right knee arthroplasty, right hip arthroplasty and cervical and lumbar hardware. He has no past history of prosthetic joint infection at any other site. Patient denies any current or past history of IV drug use. Blood cultures taken on November 01 negative to date Plan: Okay for discharge from ID standpoint on empiric Ceftriaxone 2g iv daily while awaiting cx data and molecular testing. Planned treatment duration: 6 weeks (11/01-12/13) Requesting lab to hold cx for one week Will follow cx as outpatient Attestations Medical Necessity Statement*: per admitting Coding Level of Care Code Acute Code for [facility] Fwd Diagnoses Septic arthritis of left ankle M00.9
--- NOTE | 2022-11-05 11:24 | PC.SOCIAL ---
IMM Updated Updated pt on IMM. No questions voiced. Provided pt a copy. Initialed, dated, & timed copy in chart.
--- NOTE | 2022-11-05 12:15 | PM.DCS ---
Discharge Providers Date of Admission: 10/31/22 00:30 Date of Discharge: November 05, 2022 Attending Provider at Admission: Aileen Carvalho MD Attending Provider at Discharge: Irvin Pathak MD Primary Care Provider: Wali Moon MD Diagnoses at Discharge Discharge Diagnosis (1) Septic arthritis of left ankle: Status: Acute Reason for Visit Reason for Visit: Leg side pain Hospital Course Hospital Course ?57 year old male with a past medical history of Parkinson's disease, gout, presenting to the hospital with acute swelling of the left ankle, during the hospital stay he was manged for likely lt ankle septic arthritis s/p lt ankle I&D,lt ankle fluid analyis has shown : WBC : 27886 ,96% PMNLs,crystals negative, cultures: Rare GPC's in pairs, pending identification, patient was on broad spectrum abxs during the hospital stay, podiatry and I&D was on board, currently patient is being discharged on rocephin 2 gm I.V Daily and I&D as well as podiatry intend to follow patient as outpatient.He is currently being discharged in stable condition. Physical Exam Const: COMMON NORMALS: patient oriented x3 HENMT: COMMON NORMALS: normocephalic and atraumatic HEAD & SCALP: normocephalic and atraumatic Resp: COMMON NORMALS: clear to auscultation bilaterally AUSCULTATION: clear to auscultation bilaterally Cardio: COMMON NORMALS: regular rate, regular rhythm, S1 normal heart sound present, S2 normal heart sound present, No gallops present (Cardio), No murmurs present (Cardio), No rub (Cardio) and Peripheral pulses 2+ throughout RATE: regular rate RHYTHM: regular rhythm HEART SOUNDS: S1 normal heart sound present and S2 normal heart sound present PERIPHERAL PULSES: Peripheral pulses 2+ throughout GI: COMMON NORMALS: Normal to inspection, nondistended, normoactive bowel sounds present, Soft to palpation, non-tender, No hepatosplenomegaly present and no masses AUSCULTATION: Yes normoactive bowel sounds PALPATION: Yes Soft to palpation and Yes No hepatosplenomegaly present RECTAL EXAM: Yes deferred Extremity: COMMON NORMALS: no clubbing, cyanosis or edema and no pedal edema Neuro: COMMON NORMALS: patient oriented x3 Discharge Data Studies Completed and Pending Completed Studies During Hospitalization Category Date Time Status CXRP [XR chest 1V portable [id number]] Routine Exams 11/03/22 10:54 Completed XR ankle LT min 3V* [id number] Stat Exams 10/30/22 22:16 Completed XR chest 1V portable [id number] Stat Exams 10/30/22 21:41 Completed Pending at discharge Category Date Time Status Abscess Culture and Gram Stain Routine Lab 11/01/22 10:00 Results Abscess Culture and Gram Stain Stat Lab 10/31/22 07:00 Results Anaerobic Culture Routine Lab 11/01/22 10:00 Results Blood Culture Stat Lab 11/01/22 21:21 Results Comprehensive Metabolic Panel Routine Lab 11/05/22 11:28 Ordered Miscellaneous Test Routine Lab 11/05/22 11:12 Ordered Cytology [PTH] Routine Pth 10/31/22 07:05 Received Radiology Impressions Ankle X-Ray 10/30/22 22:16 IMPRESSION: 1. Negative for acute bony abnormality. 2. Os trigonum, a normal variant. 3. Soft tissue swelling about the ankle, nonspecific. Chest X-Ray 11/03/22 10:54 IMPRESSION: Left upper extremity PICC terminates in the region of the superior cavoatrial junction. Laboratory Results WBC 6.0 10^3/uL (4.0-10.0) 11/05/22 06:09 Corrected WBC Cancelled 11/01/22 03:33 RBC 4.90 10^6/uL (4.1-5.3) 11/05/22 06:09 Hgb 13.6 g/dL (11.7-16.6) 11/05/22 06:09 Hct 43.7 % (42.0-52.0) 11/05/22 06:09 MCV 89.2 fl (80-94) 11/05/22 06:09 MCH 27.8 pg (28.0-34.0) L 11/05/22 06:09 MCHC 31.1 g/dL (30.0-36.0) 11/05/22 06:09 RDW 14.9 % (12.1-15.1) 11/05/22 06:09 Plt Count 294 10^3/cmm (130-400) 11/05/22 06:09 MPV 8.9 fL (7.4-10.4) 11/05/22 06:09 Gran % Cancelled 11/01/22 03:33 Neut % (Auto) 55.8 % 11/05/22 06:09 Lymph % (Auto) 30.7 % 11/05/22 06:09 [place] % (Auto) 7.2 % 11/05/22 06:09 Eos % (Auto) 5.3 % 11/05/22 06:09 Baso % (Auto) 0.7 % 11/05/22 06:09 Neut # (Auto) 3.34 10^3/uL (1.8-7.7) 11/05/22 06:09 Lymph # (Auto) 1.8 10^3/uL (0.8-4.8) 11/05/22 06:09 [place] # (Auto) 0.4 10^3/uL (0.2-0.9) 11/05/22 06:09 Eos # (Auto) 0.3 10^3/uL (0.0-0.8) 11/05/22 06:09 Baso # (Auto) 0.0 10^3/uL (0.0-0.1) 11/05/22 06:09 Absolute Gran (auto) Cancelled 11/01/22 03:33 Nucleated RBC % (auto) 0 % 11/05/22 06:09 Nucleated RBCs # 0.0 /100WBC 11/05/22 06:09 ESR 50 mm/hr (0-10) H 10/30/22 21:50 Sodium Cancelled 11/05/22 09:45 Potassium Cancelled 11/05/22 09:45 Chloride Cancelled 11/05/22 09:45 Carbon Dioxide Cancelled 11/05/22 09:45 Anion Gap Cancelled 11/05/22 09:45 BUN Cancelled 11/05/22 09:45 Creatinine Cancelled 11/05/22 09:45 GFR Calculation Cancelled 11/05/22 09:45 Glucose Cancelled 11/05/22 09:45 Estimat Average Glucose 123 11/01/22 03:33 Hemoglobin A1c 5.9 % (4.0-6.0) 11/01/22 03:33 Calculated Osmolality Cancelled 11/05/22 09:45 Lactic Acid 1.5 mmol/L (0.5-2.2) 10/30/22 21:50 Calcium Cancelled 11/05/22 09:45 Iron 37 ug/dL (59-158) L 10/30/22 21:50 TIBC 294 mcg/dl 10/30/22 21:50 % Saturation 12.5 % (20-50) L 10/30/22 21:50 Unsat Iron Binding 257 ug/dL (112-347) 10/30/22 21:50 Total Bilirubin Cancelled 11/05/22 09:45 AST Cancelled 11/05/22 09:45 ALT Cancelled 11/05/22 09:45 Alkaline Phosphatase Cancelled 11/05/22 09:45 C-Reactive Protein 219.0 mg/L (0.0-4.9) H 10/30/22 21:50 Total Protein Cancelled 11/05/22 09:45 Albumin Cancelled 11/05/22 09:45 Globulin Cancelled 11/05/22 09:45 Triglycerides 108 mg/dL (0-150) 11/01/22 03:33 Cholesterol 221 mg/dL (0-200) H 11/01/22 03:33 LDL Cholesterol, Calc 157 mg/dL (50-129) H 11/01/22 03:33 Total VLDL Cholesterol 22 mg/dL (0-30) 11/01/22 03:33 HDL Cholesterol 42 mg/dL (60-100) L 11/01/22 03:33 Cholesterol/HDL Ratio 5.26 mg/dL (1.0-5.00) H 11/01/22 03:33 Vitamin B12 239 pg/mL (232-1245) 10/30/22 21:50 Folate 4.9 ng/mL (4.5-32.2) 11/01/22 03:33 Procalcitonin 0.13 ng/mL (0-0.5) 10/30/22 21:50 TSH 3.12 uIU/mL (0.27-4.20) 10/30/22 21:50 Urine Color Yellow (Yellow) 10/30/22 22:30 Urine Appearance Clear (CLEAR) 10/30/22 22:30 Urine pH 5 (5-7) 10/30/22 22:30 Ur Specific [place] 1.015 (1.005-1.030) 10/30/22 22:30 Urine Protein Neg (Negative) 10/30/22 22:30 Urine Glucose (UA) Norm (Normal) 10/30/22 22:30 Urine Ketones 1+ (Negative) H 10/30/22 22:30 Urine Blood 3+ (Negative) H 10/30/22 22:30 Urine Nitrate Negative (Negative) 10/30/22 22:30 Urine Bilirubin Neg (Negative) 10/30/22 22:30 Urine Urobilinogen Norm mg/dL (Negative) 10/30/22 22:30 Ur Leukocyte Esterase Negative (Negative) 10/30/22 22:30 Urine RBC 0-4 /hpf (0-2) H 10/30/22 22:30 Urine WBC None /hpf (0-5) 10/30/22 22:30 Ur Squamous Epith Cells None /hpf (0-5) 10/30/22 22:30 Amorphous Sediment Not Reportable 10/30/22 22:30 Urine Bacteria Trace /hpf (NONE) 10/30/22 22:30 Hyaline Casts Rare /lpf 10/30/22 22:30 Urine Mucus Trace /hpf 10/30/22 22:30 Fluid Crystals Sent 10/31/22 07:00 Synovial Color Red (PALE YELLOW) 10/31/22 07:00 Synovial Appearance Bloody (CLEAR) 10/31/22 07:00 Synovial WBC 17080 /uL (0-150) H 10/31/22 07:00 Synovial RBC 887 10^3/uL (0-0) H 10/31/22 07:00 Synovial Mononuclear 2.329 10^3/uL 10/31/22 07:00 Synov Polynuclear WBCs 57.935 10^3/uL 10/31/22 07:00 Synovial Other Cells Not Reportable 10/31/22 07:00 Synovial Polynuclear % 96.100 % 10/31/22 07:00 Synovial Mononuclear % 3.900 % 10/31/22 07:00 Vancomycin Trough 18.8 ug/mL (10-15) H 11/04/22 00:45 Urine Opiates Screen Positive ng/mL (Negative) H 10/30/22 22:30 Ur Barbiturates Screen Negative ng/mL (Negative) 10/30/22 22:30 Ur Phencyclidine Scrn Negative ng/mL (Negative) 10/30/22 22:30 Ur Amphetamines Screen Negative ng/mL (Negative) 10/30/22 22:30 U Benzodiazepines Scrn Negative ng/mL (Negative) 10/30/22 22:30 Urine Cocaine Screen Negative ng/mL (Negative) 10/30/22 22:30 U Marijuana (THC) Screen Positive ng/mL (Negative) H 10/30/22 22:30 Path Cons w/Slide Yes 10/31/22 07:00 Misc Test Reference Cancelled 10/31/22 07:00 Vitals Last Vital Signs Temp 97.7 F 11/05/22 08:00 Pulse 68 11/05/22 08:00 Resp 18 11/05/22 08:00 BP 138/88 11/05/22 08:00 Pulse Ox 96 11/05/22 08:00 O2 Del Method Room Air 11/05/22 08:00 O2 Flow Rate 2 11/01/22 10:53 Discharge Plan Discharge Patient Disposition: Home Condition: Stable Prescriptions: New amlodipine 5 mg Tablet 10 mg PO DAILY 30 Days Qty: 30 2RF Continued colchicine 0.6 mg tablet 0.6 mg PO DAILY PRN (Reason: gout) Qty: 90 2RF omeprazole 40 mg capsule,delayed release(DR/EC) 40 mg PO QAM Qty: 90 1RF ondansetron 4 mg tablet,disintegrating 4 mg PO Q8H PRN (Reason: nausea and vomiting) Qty: 30 5RF indomethacin 75 mg capsule, extended release 75 mg PO BID PRN (Reason: Gout/arthritis attacks) Qty: 30 5RF Rx Instructions: Take for 10 to 15 days at a time for arthritic episodes aspirin [Adult Low Dose Aspirin] 81 mg tablet,delayed release (DR/EC) 81 mg PO QAM acetaminophen 500 mg Tablet 1,000 mg PO Q12H PRN (Reason: Pain) carbidopa-levodopa 25-250 mg tablet 1.5 tab PO Q6H Changed metoprolol tartrate 50 mg tablet 50 mg PO BID Qty: 180 4RF Discharge Orders: Discharge Order (Routine); Ordered 11/05/22 Ordered By: Irvin Pathak Other Ambulatory Orders: DME: Miscellaneous (Order) Location: None Selected Ordered By: Palmer Cifuentes DME: Wheelchair (Order) Location: None Selected Ordered By: Palmer Cifuentes Miscellaneous Procedure (Order) Location: None Selected Ordered By: Palmer Cifuentes Miscellaneous Procedure (Order) Location: None Selected Ordered By: Palmer Esau Referrals: State In Home Services Setup [Other] (Call this number to get In home services setup. They will ask you questions, & based off your answers you are given points. You have to have a certain amount of point to qualify. If you qualify, they will work on getting In home services set up for you. ) [facility] GI Lab for IV antibiotics [Other] (You will follow up with the GI Lab here at [facility] at 1200 starting tomorrow. A Medicaid ride has been setup for you daily to pick you up & then take you back home. ) Wali Moon MD [Primary Care Provider] - 11/21/22 2:15 pm (Next available is November 21 at 2:15. ) Juan Chirinos DPM [Physician] - 11/08/22 1:15 pm Patient Instructions: Amlodipine (By mouth), Ankle Arthroscopy (DC), Septic Arthritis (DC), Opioid Safety Discharge Attestations Time Spent in Discharge Care*: less than 30 min Quality Metrics Clinical Quality Measures [ No reported AMI, CVA or VTE this stay] Coding Level of Care Code Acute Code for Chg Fwd Diagnoses Septic arthritis of left ankle M00.9
[2022-11-06 14:09] LABS: Clostridium Difficile PCR NOT DETECTED (NOT DETECTED)
[2022-11-19 10:26] LABS: Miscellaneous Test See Scanned Lab Rpt
== END 2022-11-05 13:47 | disposition home or self-care (01) | DRG 550 ==
LOC: ER 22:24 → MEDSURG 10-31 00:34
PROVIDERS: Podiatrist Foot & Ankle Surgery; Student in an Organized Health Care Education/Training Program; Admitting Provider Student in an Organized Health Care Education/Training Program; Emergency Provider Emergency Medicine; PCP Family Medicine Adult Medicine; Visit Provider Internal Medicine
PROC: 3E1U48X Irrigation of Joints using Irrigating Substance, Percutaneous Endoscopic Approach, Diagnostic (ICD-10-PCS; principal; 2022-11-01 09:05)
DX: M00.9 Pyogenic arthritis, unspecified (principal); M12.272 Villonodular synovitis (pigmented), left ankle and foot; G20 Parkinson's disease; M10.9 Gout, unspecified; Z79.82 Long term (current) use of aspirin; F41.9 Anxiety disorder, unspecified; F32.A Depression, unspecified; I25.10 Atherosclerotic heart disease of native coronary artery without angina pectoris; F17.220 Nicotine dependence, chewing tobacco, uncomplicated; G89.29 Other chronic pain; M25.511 Pain in right shoulder; K21.9 Gastro-esophageal reflux disease without esophagitis; I10 Essential (primary) hypertension
CPT/HCPCS: 20605; 36415; 36569; 71045; 73610; 80053; 80061; 80202; 80306; 80503; 81001; 82607; 82746; 83036; 83540; 83550; 83605; 84145; 84443; 85025; 85651; 86140; 87040; 87070; 87075; 87205; 87491; 87493; 87591; 87641; 88112; 88305; 89050; 96361; 96372; 96374; 96375; 96376; 97110; 97161; 97530; 99285; G0378; J0696; J1100; J1170; J1644; J2370; J2405; J2543; J2704; J2795; J3010; J3370; J3490; J7030

== ENCOUNTER 2022-11-06 05:38 | Emergency (ER) | payer MEDICARE, MEDICAID, SELFPAY ==
[2022-11-06 05:40] VITALS: BMI 29.8
[2022-11-06 05:41] VITALS: BP 115/76; PULSE 96; RESP 16; TEMP 36.8; O2SAT 96
--- NOTE | 2022-11-06 06:07 | W.ED.EXTPRO ---
HPI - Extremity Problem General: Chief complaint: Extremity Problem,Nontraumatic Stated complaint: LEG PAIN Time Seen by Provider: 11/06/22 06:00 Source: patient Mode of arrival: EMS History of Present Illness: 49-year-old male presents emergency room complaining of Bilateral leg pain pain radiating up to the popliteal area patient had surgery on his left foot this past week. There was concern about septic joint he had a joint washout and he has been started on a program for Rocephin daily for the next 6 to 7 weeks. His first dose was to be today he was discharged from the hospital yesterday. He does have a splint in place he is complaining of shakes and back pain as well he has not had any vomiting or diarrhea he does complain of a subjective fever. Review of his cultures from his previous hospitalization show no growth on any of the cultures to date. No chest pain no shortness of breath. MD Complaint: joint swelling and joint pain Onset (ago): day(s) Pain Consistency: constant Location: left (ankle) Quality: aching Relieving factors: nothing Exacerbating factors: weight bearing and palpation Associated symptoms: Reports arthralgias, fever(s) and myalgias; Deny chest pain, rash or short of breath Context: immobilization Review of Systems Const: Reports: fever(s); Denies: chills, fatigue or malaise Card: Denies: chest pain Resp: Denies: dyspnea, productive cough or non-productive cough GI: Denies: abdominal pain, nausea or vomiting Skin/Breast: Denies: rash PFSH ED PFSH: Medical History Anxiety and depression CAD (coronary artery disease) Chewing tobacco nicotine dependence Age [age] (currently) Chronic right shoulder pain DDD (degenerative disc disease) Decreased glomerular filtration rate (GFR) Eustachian tube dysfunction GERD (gastroesophageal reflux disease) Gout Hearing loss Hypertension Knee pain, right Migraines Osteoarthritis Pain in left ankle Parkinsons disease Polyp of esophagus Polyp of tongue Pre-procedural examination Septic arthritis of left ankle Swelling of left ankle joint Surgical History History of back surgery x6 different surgeries on the spine Family History Father Stroke Heart attack Brother Hypertension Sister Heart attack Social History Smoking and tobacco status: current every day smoker (chewing) smokeless tobacco Smokeless tobacco user: chewing tobacco Alcohol intake: former Desire information about alcohol rehabilitation?: No Substance/Drug Use: current Substance/Drug use frequency: other Other substance/drug use details: medical marijuana Desire information about substance/drug rehabilitation?: No Caregiver/support person: No Lives independently: Yes Household members: none Marital status: Single Highest education level completed: Some College, No Degree service: No Current occupational status: retired and disabled Do you think of yourself as: Straight/Heterosexual Current gender identity: Male Physical Exam Const: GENERAL APPEARANCE: cooperative and comfortable ORIENTATION/CONSCIOUSNESS: Yes awake, Yes oriented to person, Yes oriented to place and Yes oriented to time HENMT: COMMON NORMALS: normocephalic, atraumatic and hearing grossly normal bilaterally HEAD & SCALP: normocephalic and atraumatic Resp: COMMON NORMALS: normal respiratory effort, No retractions, No use of accessory muscles and clear to auscultation bilaterally AUSCULTATION: clear to auscultation bilaterally Cardio: COMMON NORMALS: regular rate, regular rhythm and No murmurs present (Cardio) RATE: regular rate RHYTHM: regular rhythm GI: COMMON NORMALS: Soft to palpation and No hepatosplenomegaly present AUSCULTATION: Yes normoactive bowel sounds PALPATION: Yes Soft to palpation, No Tenderness to palpation present (GI), No Guarding due to palpation present (GI) and Yes No hepatosplenomegaly present Extremity: COMMON NORMALS: normal to inspection, capillary refill normal, no clubbing, cyanosis or edema, no calf tenderness and no pedal edema Neuro: SENSORIUM/ORIENTATION: Yes oriented to person, Yes oriented to place and Yes oriented to time Skin: COMMON NORMALS: no rashes or lesions noted GENERAL SKIN EXAM: no rashes or lesions noted Course Vital Signs: Vital signs: Vital Signs Temperature 98.2 F 11/06/22 05:41 Pulse Rate 96 11/06/22 05:41 Respiratory Rate 16 11/06/22 05:41 Blood Pressure 115/76 11/06/22 05:41 Pulse Oximetry 96 11/06/22 05:41 Oxygen Delivery Me thod Room Air 11/06/22 05:41 MDM - Extremity (Nontraumatic) Medical Decision Making Patient arrived is complaining of twitching in his lower extremities as well as back pain. He wanted pain medications when initially offered him hydrocodone he states he cannot take that 1 only discussed it with him he states all of the codons he is allergic to however he relates that to his history of addiction issues. He did state he is able to take morphine and Dilaudid. In this particular case those would not be appropriate and we recommended a little lower dose discussing with them that if he is able to tolerate morphine and Dilaudid he should be able to tolerate the hydrocodone. He was very upset with this and trying to discuss with him that side effects are different than allergies in appropriate settings it is still okay for patients with histories of addiction to take small doses of narcotics. Instead he ended up getting acetaminophen. Lab Data 11/06/22 06:30 11/06/22 07:00 Radiology Impressions Ankle X-Ray 11/06/22 06:08 IMPRESSION: Soft tissue swelling surrounding the ankle. Laboratory Results WBC 10.3 10^3/uL (4.0-10.0) H 11/06/22 06:30 RBC 5.38 10^6/uL (4.1-5.3) H 11/06/22 06:30 Hgb 15.1 g/dL (11.7-16.6) 11/06/22 06:30 Hct 48.8 % (42.0-52.0) 11/06/22 06:30 MCV 90.7 fl (80-94) 11/06/22 06:30 MCH 28.1 pg (28.0-34.0) 11/06/22 06:30 MCHC 30.9 g/dL (30.0-36.0) 11/06/22 06:30 RDW 14.8 % (12.1-15.1) 11/06/22 06:30 Plt Count 325 10^3/cmm (130-400) 11/06/22 06:30 MPV 10.0 fL (7.4-10.4) 11/06/22 06:30 Neut % (Auto) 73.7 % 11/06/22 06:30 Lymph % (Auto) 16.7 % 11/06/22 06:30 [place] % (Auto) 6.6 % 11/06/22 06:30 Eos % (Auto) 2.3 % 11/06/22 06:30 Baso % (Auto) 0.3 % 11/06/22 06:30 Neut # (Auto) 7.61 10^3/uL (1.8-7.7) 11/06/22 06:30 Lymph # (Auto) 1.7 10^3/uL (0.8-4.8) 11/06/22 06:30 [place] # (Auto) 0.7 10^3/uL (0.2-0.9) 11/06/22 06:30 Eos # (Auto) 0.2 10^3/uL (0.0-0.8) 11/06/22 06:30 Baso # (Auto) 0.0 10^3/uL (0.0-0.1) 11/06/22 06:30 Nucleated RBC % (auto) 0 % 11/06/22 06:30 Nucleated RBCs # 0.0 /100WBC 11/06/22 06:30 Sodium 139 mmol/L (136-145) 11/06/22 07:00 Sodium Cancelled 11/06/22 07:00 Potassium 3.4 mmol/L (3.5-5.1) L 11/06/22 07:00 Potassium Cancelled 11/06/22 07:00 Chloride 101 mmol/L (98-107) 11/06/22 07:00 Chloride Cancelled 11/06/22 07:00 Carbon Dioxide 22 mmol/L (22-29) 11/06/22 07:00 Carbon Dioxide Cancelled 11/06/22 07:00 Anion Gap 19.4 (5-19) H 11/06/22 07:00 Anion Gap Cancelled 11/06/22 07:00 BUN 27 mg/dL (6-20) H 11/06/22 07:00 BUN Cancelled 11/06/22 07:00 Creatinine 1.2 mg/dL (0.7-1.2) 11/06/22 07:00 Creatinine Cancelled 11/06/22 07:00 GFR Calculation 62.2 mL/min (90-130) L 11/06/22 07:00 GFR Calculation Cancelled 11/06/22 07:00 Glucose 110 mg/dL (65-115) 11/06/22 07:00 Glucose Cancelled 11/06/22 07:00 Calculated Osmolality 294 mOsm/kg (285-295) 11/06/22 07:00 Calculated Osmolality Cancelled 11/06/22 07:00 Calcium 9.4 mg/dL (8.5-10.5) 11/06/22 07:00 Calcium Cancelled 11/06/22 07:00 Total Bilirubin 0.5 mg/dL (0.15-1.2) 11/06/22 07:00 AST 84 U/L (0-40) H 11/06/22 07:00 ALT 21 U/L (0-41) 11/06/22 07:00 Alkaline Phosphatase 82 U/L (40-130) 11/06/22 07:00 C-Reactive Protein 42.6 mg/L (0.0-4.9) H 11/06/22 07:00 Total Protein 7.6 g/dL (6.6-8.7) 11/06/22 07:00 Albumin 3.8 g/dL (3.5-5.2) 11/06/22 07:00 Globulin 3.8 g/dL (1.3-4.6) 11/06/22 07:00 Discharge Plan Discharge Patient Disposition: Home Clinical Impression: Septic arthritis of ankle and foot region Condition: Stable Prescriptions: New ropinirole 1 mg tablet 1 mg PO .QHS Qty: 14 0RF No Action colchicine 0.6 mg tablet 0.6 mg PO DAILY PRN (Reason: gout) Qty: 90 2RF omeprazole 40 mg capsule,delayed release(DR/EC) 40 mg PO QAM Qty: 90 1RF ondansetron 4 mg tablet,disintegrating 4 mg PO Q8H PRN (Reason: nausea and vomiting) Qty: 30 5RF indomethacin 75 mg capsule, extended release 75 mg PO BID PRN (Reason: Gout/arthritis attacks) Qty: 30 5RF Rx Instructions: Take for 10 to 15 days at a time for arthritic episodes aspirin [Adult Low Dose Aspirin] 81 mg tablet,delayed release (DR/EC) 81 mg PO QAM acetaminophen 500 mg Tablet 1,000 mg PO Q12H PRN (Reason: Pain) carbidopa-levodopa 25-250 mg tablet 1.5 tab PO Q6H amlodipine 5 mg Tablet 10 mg PO DAILY 30 Days Qty: 30 2RF metoprolol tartrate 50 mg tablet 50 mg PO BID Qty: 180 4RF Discharge Orders: Discharge ED (Routine); Ordered 11/06/22 Ordered By: Gavin Blackman Referrals: Wali Moon MD [Primary Care Provider] - Discharge Diet: Usual diet Discharge Activity: Increase activity as tolerated Patient Instructions: Opioid Safety, Pain Management Activity Restrictions/Additional Instructions: You were seen today for pain in your left leg extending into the back of the knee. Ultrasound of the legs did not show any sign of DVT. Additionally you had complained of some twitching in your legs (restless leg leg syndrome.) You were given ropinirole in the emergency room discharged home with ropinirole 1 tablet at night. Follow-up with your primary care doctor if this continues the dose could be adjusted if needed. Recommend that you keep your scheduled appointments for the antibiotic infusions. Cultures from your recent hospitalization so far have been negative. Keep your scheduled appointments with your primary care doctor and wound care. Continue to use the splint as previously advised at the time of discharge. Coding Level of Care Code ED Storage And Backup Administrator for Mu Pressley
--- NOTE | 2022-11-06 06:08 | XRR_ITS ---
PROCEDURE INFORMATION: Exam: XR Left Ankle Exam date and time: 11/06/2022 6:20 AM Age: 57 years old Clinical indication: Prior surgery; Surgery date: 1-6 months; Surgery type: Left foot joint washout; Patient HX: Left ankle pain. There was concern about septic joint he had a joint washout and he has been started on a program for rocephin daily; Additional info: Joint infection TECHNIQUE: Imaging protocol: Radiologic exam of the left ankle. Views: 3 or more views. COMPARISON: CR (LOW EXM, ) 10/30/2022 10:21 PM FINDINGS: Bones/joints: The ankle mortise is normally aligned. No acute fracture is seen. Soft tissues: Soft tissue swelling surrounding the ankle. XR/XR ankle LT min 3V* [id number] IMPRESSION: Soft tissue swelling surrounding the ankle.
--- NOTE | 2022-11-06 06:13 | USCV_ITS ---
Jude Burden Age: 57 Gender: M : 1965 Exam Date: 11/06/2022 07:09 Ordering Phys: Gavin Blackman DO Technologist: CT Exam Location: [facility] [place] Indication: pain PROCEDURES: The venous duplex Doppler examination of both lower extremities was performed in the standard fashion. Bilaterally, the common femoral, superficial femoral, profunda femoral, popliteal, posterior tibial, greater saphenous veins, and the peroneal trunk were identified and interrogated in the standard fashion. These veins were found to be easily compressible with spontaneous blood flow. No evidence of insufficiency or thrombus noted. FINDINGS: no dvt, pt unable to hold still during exam CONCLUSIONS No evidence of right lower extremity DVT. No evidence of left lower extremity DVT. Serafin Beltran MD (Electronically Signed) Final Date: 06 Nov 2022 09:28 S
--- NOTE | 2022-11-06 06:15 | PC.NURSE ---
To room to medicate pt. Notified pt he was getting hydrocodone for his pain. Pt states he cannot take that due to allergies to all narcotics other than morphine and dilaudid. He said that he has been here enough times that we should know this. notified. changed order to tylenol. Upon notification of this, the pt began cussing me and telling me that we have been told that when he arrives here, we are to immediately call his physician and that we need to take this more seriously because this isn't a patch and go job. I told him there was no reason to speak to me that way and that I am only the messenger. He stated he would talk to me anyway he wanted to and I responded that if he continued that I would leave the room. He then told me to leave and not come back and asked for my name, which I gave him. Other nurse remained in room to continue care.
[2022-11-06 06:38] LABS: Basophils % 0.3 %; Eosinophils # 0.2 10^3/uL (0.0-0.8); Eosinophils % 2.3 %; Hematocrit 48.8 % (42.0-52.0); Hemoglobin 15.1 g/dL (11.7-16.6); Lymphocytes # 1.7 10^3/uL (0.8-4.8); Lymphocytes % 16.7 %; Mean Corpuscular HGB Conc 30.9 g/dL (30.0-36.0); Mean Corpuscular Hemoglobin 28.1 pg (28.0-34.0); Mean Corpuscular Volume 90.7 fl (80-94); Monocytes # 0.7 10^3/uL (0.2-0.9); Monocytes % 6.6 %; Neutrophils # 7.61 10^3/uL (1.8-7.7); Neutrophils % 73.7 %; Nucleated Red Blood Cells % 0 %; Platelet Count 325 10^3/cmm (130-400); Red Blood Count 5.38 10^6/uL (4.1-5.3); Red Cell Distribution Width 14.8 % (12.1-15.1); White Blood Count 10.3 10^3/uL (4.0-10.0)
[2022-11-06] MEDS: ropinirole 2 mg Tablet PO (06:38)
[2022-11-06] MEDS: acetaminophen 500 mg Tablet 1000 MG PO (06:58)
[2022-11-06 07:20] LABS: C Reactive Protein 42.6 mg/L (0.0-4.9)
[2022-11-06 07:34] LABS: Alanine Aminotransferase 21 U/L (0-41); Albumin Level 3.8 g/dL (3.5-5.2); Alkaline Phosphatase 82 U/L (40-130); Aspartate Amino Transferase 84 U/L (0-40); Globulin 3.8 g/dL (1.3-4.6); Total Bilirubin 0.5 mg/dL (0.15-1.2); Total Protein 7.6 g/dL (6.6-8.7)
[2022-11-06 07:36] LABS: Anion Gap 19.4 (5-19); Blood Urea Nitrogen 27 mg/dL (6-20); Calcium 9.4 mg/dL (8.5-10.5); Carbon Dioxide 22 mmol/L (22-29); Chloride 101 mmol/L (98-107); Glomerular Filtration Rate 62.2 mL/min (90-130); Glucose 110 mg/dL (65-115); Osmolality Calculated 294 mOsm/kg (285-295); Potassium 3.4 mmol/L (3.5-5.1); Sodium 139 mmol/L (136-145)
--- NOTE | 2022-11-06 07:47 | PC.NURSE ---
Primary nurse and another nurse was in another room starting a cardiac drip when Jude Burden starting yelling, Nurse!! Patient had pushed his call light but staff members were in a room with a higher priority patient. Jude continued to yell Nurse!! Primary nurse stayed in room to start cardiac drip and another staff member answered the call light. Jude yelled saying If I was having a heart attack you guys would not know since no one is coming to check on me. Nurse informed him to stop yelling and that we can watch the property assessment monitor from the nurses station. Jude states he needed changed since he had a bowel movement. Dr. Blackman enters the room to calm the situation down and Jude began yelling at Dr. Blackman. Patient then became upset about his medications and started arguing with Dr. Blackman. Dr. Blackman stayed calm and professional and answered all the patients questions. Patient continued to argue and raise his voice with Dr. Blackman. Dr. Blackman gave patient his discharge instructions and exited the room.
== END 2022-11-06 08:30 | disposition home or self-care (01) ==
PROVIDERS: Emergency Provider Family Medicine; PCP Family Medicine Adult Medicine
DX: M00.872 Arthritis due to other bacteria, left ankle and foot (principal); Z79.82 Long term (current) use of aspirin; I25.10 Atherosclerotic heart disease of native coronary artery without angina pectoris; I10 Essential (primary) hypertension; G20 Parkinson's disease; F17.220 Nicotine dependence, chewing tobacco, uncomplicated; M00.9 Pyogenic arthritis, unspecified; M79.605 Pain in left leg; M79.604 Pain in right leg
CPT/HCPCS: 36415; 73610; 80053; 85025; 86140; 93970; 96365; 99024; 99285; J0696

== ENCOUNTER 2022-11-13 12:41 | Outpatient (RCR) | payer MEDICARE, MEDICAID, SELFPAY ==
[2022-11-06] MEDS: cefTRIAXone 2,000 MG in sodium chloride 0.9% (plus) 50 ML 100 MG IV (08:31)
[2022-11-06 08:43] VITALS: BP 107/87; PULSE 93; RESP 18; TEMP 36.6; O2SAT 94
--- NOTE | 2022-11-06 08:44 | PC.NURSE ---
Pt to GI infusions from ER for IV Ceftriaxone infusion. Pt discharged from hospital yesterday and set up with OP infusion for 6 weeks IV antibiotics. Had pain during night, prompting him to call an ambulance. Pt discharged from ER and brought to GI for infusion. Dr. Chirinos and Dr. Carvalho notified. Dr. Chirinos to see patient today following IV antibiotic at 9:15.
--- NOTE | 2022-11-06 09:05 | PC.NURSE ---
Pt to Dr. Chirinos's office via wheelchair for follow-up visit. Number provided to nursing staff to call for Medicaid transport ride home.
[2022-11-07] MEDS: cefTRIAXone 2,000 MG in sodium chloride 0.9% (plus) 50 ML 100 MG IV (12:23)
[2022-11-07 12:37] VITALS: BP 109/77; PULSE 94; RESP 18; TEMP 36.2; O2SAT 92
[2022-11-08] MEDS: cefTRIAXone 2,000 MG in sodium chloride 0.9% (plus) 50 ML 100 MG IV (11:30)
[2022-11-08 11:56] VITALS: BP 99/62; PULSE 92; RESP 18; TEMP 36.1; O2SAT 96
[2022-11-09 11:50] VITALS: BP 104/66; PULSE 76; RESP 18; TEMP 35.9; O2SAT 100
[2022-11-09] MEDS: cefTRIAXone 2,000 MG in sodium chloride 0.9% (plus) 50 ML 100 MG IV (11:55)
[2022-11-10] MEDS: cefTRIAXone 2,000 MG in sodium chloride 0.9% (plus) 50 ML 100 MG IV (11:53)
[2022-11-10 11:54] VITALS: BP 97/64; PULSE 96; RESP 18; TEMP 36.3; O2SAT 96
[2022-11-12 12:22] VITALS: BP 99/68; PULSE 98; RESP 16; TEMP 37.2; O2SAT 95
[2022-11-12] MEDS: cefTRIAXone 2,000 MG in sodium chloride 0.9% (plus) 50 ML 100 MG IV (12:30)
--- NOTE | 2022-11-12 13:04 | SUR.OPER ---
IV MEDICATION INFUSED. PATIENT TOLERATED WELL. FLUSHED WITH 2 SALINE FLUSHES. NEW CAP APPLIED.
[2022-11-12 13:05] VITALS: BP 115/75; PULSE 70; RESP 16; TEMP 37.3; O2SAT 95
[2022-11-13 12:50] VITALS: BP 99/81; PULSE 101; RESP 18; TEMP 36.4; O2SAT 96
[2022-11-13] MEDS: cefTRIAXone 2,000 MG in sodium chloride 0.9% (plus) 50 ML 100 MG IV (13:14)
[2022-11-13 13:20] LABS: Basophils # 0.1 10^3/uL (0.0-0.1); Basophils % 0.3 %; Eosinophils # 0.1 10^3/uL (0.0-0.8); Eosinophils % 0.7 %; Hematocrit 40.4 % (42.0-52.0); Hemoglobin 13.1 g/dL (11.7-16.6); Lymphocytes # 2.3 10^3/uL (0.8-4.8); Lymphocytes % 13.8 %; Mean Corpuscular HGB Conc 32.4 g/dL (30.0-36.0); Mean Corpuscular Volume 86.3 fl (80-94); Mean Platelet Volume 9.6 fL (7.4-10.4); Monocytes # 1.4 10^3/uL (0.2-0.9); Monocytes % 8.8 %; Neutrophils # 12.32 10^3/uL (1.8-7.7); Neutrophils % 75.7 %; Nucleated Red Blood Cells % 0 %; Platelet Count 274 10^3/cmm (130-400); Red Blood Count 4.68 10^6/uL (4.1-5.3); Red Cell Distribution Width 14.9 % (12.1-15.1); White Blood Count 16.3 10^3/uL (4.0-10.0)
--- NOTE | 2022-11-13 13:58 | PC.NURSE ---
Pt to GI infusions for dressing change to left PICC and lab draw. Pt brought stool sample from home for C.Diff as requested by Dr. Carvalho. Pt states he has had fever and chills over weekend. Temp today 97.7 but pt states he is cold and is noted to be shivering. Pt also complains of muscle pain. Dr. Carvalho's office notified. Orders received to add CK and CRP to today's labs. Pt has appointment with Dr. Chirinos, podiatry, after this visit.
[2022-11-13 14:08] LABS: Alanine Aminotransferase < 5 U/L (0-41); Albumin Level 3.5 g/dL (3.5-5.2); Alkaline Phosphatase 79 U/L (40-130); Globulin 3.7 g/dL (1.3-4.6); Glomerular Filtration Rate 138.4 mL/min (90-130); Total Bilirubin 0.5 mg/dL (0.15-1.2); Total Protein 7.2 g/dL (6.6-8.7)
[2022-11-13 14:09] LABS: C Reactive Protein 199.7 mg/L (0.0-4.9); Creatine Phosphokinase 32 U/L (39-308)
[2022-11-13 14:10] LABS: Aspartate Amino Transferase 15 U/L (0-40)
[2022-11-15 13:14] LABS: Clostridium Difficile PCR NOT DETECTED (NOT DETECTED)
== END 2022-11-14 07:18 | disposition home or self-care (01) ==
LOC: GILAB 12:41
PROVIDERS: PCP Family Medicine Adult Medicine; Visit Provider Student in an Organized Health Care Education/Training Program
DX: M00.9 Pyogenic arthritis, unspecified (principal)
CPT/HCPCS: 36592; 80076; 82550; 82565; 85025; 86140; 87493; 96365; J0696

== ENCOUNTER 2022-11-13 14:56 | Inpatient (IN) | payer MEDICARE, MEDICAID, SELFPAY ==
[2022-11-13] VITALS (7 sets, daily range): BP systolic 102–134; BP diastolic 64–82; PULSE 82–106; RESP 18–20; TEMP 37.6–38.8; O2SAT 96–100; BMI 28.3
[2022-11-13] MEDS: sodium chloride 0.9% 1,000 ML 999 ML IV (17:12)
--- NOTE | 2022-11-13 17:18 | PC.PHAR ---
PT STATES HE TAKES CARE OF HIS OWN MEDICATIONS-PT STATES HE STOP TAKING HIS METOPROLOL TARTRATE 50MG BID ON SAT 11/10/22 PT STATES HE ALSO STOP TAKING THE AMLODIPINE 10MG DAILY FILLED 11/05/22 30D/S-PT STATES NO LONGER TAKES ASPIRIN 81MG DAILY-PT STATES HE TAKES CARBIDOPA-LEVODOPA 25-250 TAKES 1.5 TO 2 TABS PO Q6H RX FILLED FOR 1.5 TAB AT 12AM 1 TAB AT 06, 1.5 TABS AT 12PM,AND 1 TAB PO AT 17:00 FILLED 10/09/22 30D/S-CALLED GI LAB NO ANSWER BUT NOTE FROM 11/06/22 FROM [facility] HAD PT GETS CEFTRIAXONE INFUSIONS BUT DIDNT HAVE THE MG FOR 6 WEEKS-
--- NOTE | 2022-11-13 17:24 | W.ED.EXTPRO ---
Documented by User: Abdiaziz Cruz DO 11/14/22 07:01 HPI - Extremity Problem General: Chief complaint: Extremity Injury, Lower Stated complaint: leg infection sent by DR salvador Time Seen by Provider: 11/13/22 16:58 History of Present Illness: Patient presents to the ER from Dr. Salvador's office. Patient had surgery on his left ankle where he had pyogenic arthritis cleaned out. Patient has been on Rocephin 2 g IV daily per PICC line. Patient still having fever chills elevated white count. Patient presented Dr. Salvador's office today and he noticed his feet were more swollen tender and erythematous than before as well as patient was tachycardic and mildly hypotensive. He was sent over here for further evaluation and treatment and admission for IV antibiotics. The floor does not currently have a bed otherwise he will be direct admitted we will hold him here until 1 becomes available. Review of Systems General: Reports: 10 or more systems reviewed and unremarkable except in HPI and below PFSH ED PFSH: Medical History Anxiety and depression CAD (coronary artery disease) Chewing tobacco nicotine dependence Age [age] (currently) Chronic right shoulder pain DDD (degenerative disc disease) Decreased glomerular filtration rate (GFR) Eustachian tube dysfunction Fusion of lumbar spine GERD (gastroesophageal reflux disease) Gout Hearing loss Hyperkalemia Hypertension Knee pain, right Migraines Osteoarthritis Pain in left ankle Parkinsons disease Polyp of esophagus Polyp of tongue Pre-procedural examination Swelling of left ankle joint TIA (transient ischemic attack) Surgical History History of back surgery x6 different surgeries on the spine History of total knee arthroplasty Left TKA x2 revision needed due to loosening of hardware, no history of infection S/P cervical spinal fusion Family History Father Stroke Heart attack Brother Hypertension Sister Heart attack Social History Smoking and tobacco status: current every day smoker (chewing) smokeless tobacco Smokeless tobacco user: chewing tobacco Alcohol intake: former Desire information about alcohol rehabilitation?: No Substance/Drug Use: current Substance/Drug use frequency: other Other substance/drug use details: medical marijuana Desire information about substance/drug rehabilitation?: No Caregiver/support person: No Lives independently: Yes Household members: none Marital status: Single Highest education level completed: Some College, No Degree service: No Current occupational status: retired and disabled Do you think of yourself as: Straight/Heterosexual Current gender identity: Male Physical Exam Const: COMMON NORMALS: no acute distress, average body habitus, patient oriented x3, no limitations, healthy appearing, alert and well nourished HENMT: COMMON NORMALS: normocephalic, atraumatic, hearing grossly normal bilaterally, external ears normal, Normal external nose present and moist oral mucous membranes HEAD & SCALP: normocephalic and atraumatic NOSE: Normal external nose present EXTERNAL EAR: Yes external ears normal Eye: COMMON NORMALS: Equal, round and reactive pupils present, EOMs intact bilaterally, conjunctivae normal and no scleral icterus CONJUNCTIVA: Yes conjunctivae normal PUPIL: Yes Equal, round and reactive pupils present Neck/C-Spine: COMMON NORMALS: full ROM, no lymphadenopathy, supple, no meningeal signs, no JVD and Thyroid normal THYROID: Thyroid normal Chest: COMMONS NORMALS: normal inspection of the chest and normal palpation of entire chest wall Resp: COMMON NORMALS: normal respiratory effort, No retractions, No use of accessory muscles and clear to auscultation bilaterally AUSCULTATION: clear to auscultation bilaterally Cardio: COMMON NORMALS: no JVD, S1 normal heart sound present, S2 normal heart sound present, No gallops present (Cardio), No clicks present (Cardio) and No murmurs present (Cardio) RATE: tachycardic HEART SOUNDS: S1 normal heart sound present and S2 normal heart sound present GI: COMMON NORMALS: Normal to inspection, nondistended, normoactive bowel sounds present, Soft to palpation, non-tender, No hepatosplenomegaly present and no masses PALPATION: Yes Soft to palpation and Yes No hepatosplenomegaly present : COMMON NORMALS: Yes no CVA tenderness BLADDER/KIDNEY EXAM: Yes no CVA tenderness Back/Pelvis: COMMON NORMALS: no CVA tenderness Extremity: NARRATIVE EXTREMITY EXAM: Swelling and erythema noted to both feet with tenderness to palpation. Neuro: COMMON NORMALS: patient oriented x3 SENSORIUM/ORIENTATION: Yes alert MENINGEAL SIGNS: Yes no meningeal signs Course Vital Signs: Vital signs: Vital Signs Temperature 97.8 F 11/17/22 11:20 Pulse Rate 73 11/17/22 11:20 Respiratory Rate 16 11/17/22 11:20 Blood Pressure 111/69 11/17/22 11:20 Pulse Oximetry 95 11/17/22 11:20 Oxygen Delivery Me thod Room Air 11/17/22 08:00 MDM - Extremity (Nontraumatic) Medical Decision Making Patient presents to the ER with complaints of right and left foot swelling pain and redness. Patient has had recent surgery on his left ankle for pyogenic arthritis. Patient has been on daily doses of Rocephin. Patient's white count has not decreased. Patient's had increased pain and swelling and was sent over by Dr. Salvador for probable sepsis and IV antibiotics and admission. Patient's blood cell count continues to be elevated at 16.9, his lactic acid and procalcitonin are normal, potassium is elevated 5.5, chest x-ray was obtained which showed negative for infiltrate. Patient was given 1 milligram of Dilaudid, 1 L normal saline, 3.375 g of Zosyn and 1 g of vancomycin while in ER. Due to patient's recent surgery and failure of outpatient antibiotics it is anticipated that he will be admitted, placed on IV antibiotics, Differential Diagnosis Unlikely herpes zoster, gout, cellulitis, superficial thrombophlebitis, deep venous thrombosis of upper extremity, lower extremity edema or deep vein thrombosis of lower extremity Medical Records I reviewed the patient's medical records. Lab Data I reviewed the patient's lab results. 11/16/22 04:40 11/16/22 04:40 Radiology Impressions Chest X-Ray 11/13/22 21:53 IMPRESSION: 1. Negative for infiltrate 2. Left-sided PICC line with tip approaching the atrial caval junction. 3. Cervical spine surgical hardware somewhat visualized. Ankle MRI 11/14/22 09:13 IMPRESSION: 1. Diffuse soft tissue edema with small joint effusion likely due to cellulitis and soft tissue infection. 2. Normal bone marrow signal. No evidence of osteomyelitis. 3. Additional nonacute findings as described above Laboratory Results WBC 16.9 10^3/uL (4.0-10.0) H 11/13/22 16:55 RBC 4.94 10^6/uL (4.1-5.3) 11/13/22 16:55 Hgb 13.9 g/dL (11.7-16.6) 11/13/22 16:55 Hct 42.9 % (42.0-52.0) 11/13/22 16:55 MCV 86.8 fl (80-94) 11/13/22 16:55 MCH 28.1 pg (28.0-34.0) 11/13/22 16:55 MCHC 32.4 g/dL (30.0-36.0) 11/13/22 16:55 RDW 15.2 % (12.1-15.1) H 11/13/22 16:55 Plt Count 321 10^3/cmm (130-400) 11/13/22 16:55 MPV 10.3 fL (7.4-10.4) 11/13/22 16:55 Neut % (Auto) 75.6 % 11/13/22 16:55 Lymph % (Auto) 13.3 % 11/13/22 16:55 [place]era[place] % (Auto) 8.8 % 11/13/22 16:55 Eos % (Auto) 0.4 % 11/13/22 16:55 Baso % (Auto) 0.4 % 11/13/22 16:55 Neut # (Auto) 12.83 10^3/uL (1.8-7.7) H 11/13/22 16:55 Lymph # (Auto) 2.3 10^3/uL (0.8-4.8) 11/13/22 16:55 Jerauld # (Auto) 1.5 10^3/uL (0.2-0.9) H 11/13/22 16:55 Eos # (Auto) 0.1 10^3/uL (0.0-0.8) 11/13/22 16:55 Baso # (Auto) 0.1 10^3/uL (0.0-0.1) 11/13/22 16:55 Nucleated RBC % (auto) 0 % 11/13/22 16:55 Nucleated RBCs # 0.0 /100WBC 11/13/22 16:55 Sodium 138 mmol/L (136-145) 11/13/22 19:31 Potassium 5.5 mmol/L (3.5-5.1) H 11/13/22 19:31 Chloride 101 mmol/L (98-107) 11/13/22 19: Carbon Dioxide 28 mmol/L (22-29) 11/13/22 19: Anion Gap 14.5 (5-19) 11/13/22 19: BUN 11 mg/dL (6-20) 11/13/22 19: Creatinine 0.8 mg/dL (0.7-1.2) 11/13/22 19: GFR Calculation 99.3 mL/min (90-130) 11/13/22: Glucose 97 mg/dL (65-115) 11/13/22 19: Calculated Osmolality 285 mOsm/kg (285-295) 11/13/22 19: Lactic Acid 0.8 mmol/L (0.5-2.2) 11/13/22: Calcium 8.1 mg/dL (8.5-10.5) L 11/13/22: Total Bilirubin 0.5 mg/dL (0.15-1.2) 11/13/22: AST 14 U/L (0-40) 11/13/22 19: ALT < 5 U/L (0-41) 11/13/22 19: Alkaline Phosphatase 69 U/L (40-130) 11/13/22 19: Total Protein 6.6 g/dL (6.6-8.7) 11/13/22 19: Albumin 3.2 g/dL (3.5-5.2) L 11/13/22 19: Globulin 3.4 g/dL (1.3-4.6) 11/13/22 19: Procalcitonin 0.14 ng/mL (0-0.5) 11/13/22 19: Urine Color Yellow (Yellow) 11/13/22 16:40 Urine Appearance Clear (CLEAR) 11/13/22 16:40 Urine pH 5 (5-7) 11/13/22 16:40 Ur Specific [place] 1.020 (1.005-1.030) 11/13/22 16:40 Urine Protein Neg (Negative) 11/13/22 16:40 Urine Glucose (UA) Norm (Normal) 11/13/22 16:40 Urine Ketones 1+ (Negative) H 11/13/22 16:40 Urine Blood 2+ (Negative) H 11/13/22 16:40 Urine Nitrate Negative (Negative) 11/13/22 16:40 Urine Bilirubin Neg (Negative) 11/13/22 16:40 Urine Urobilinogen Norm mg/dL (Negative) 11/13/22 16:40 Ur Leukocyte Esterase Negative (Negative) 11/13/22 16:40 Urine RBC Rare /hpf (0-2) 11/13/22 16:40 Urine WBC 0-4 /hpf (0-5) H 11/13/22 16:40 Ur Squamous Epith Cells Rare /hpf (0-5) 11/13/22 16:40 Amorphous Sediment Not Reportable 11/13/22 16:40 Urine Bacteria Trace /hpf (NONE) 11/13/22 16:40 Urine Mucus 2+ /hpf 11/13/22 16:40 Discharge Plan Discharge Patient Disposition: Admitted As Inpatient Admit Provider: Aileen Carvalho Clinical Impression: Left foot infection, Right foot infection Condition: Stable Discharge Diet: Cardiac Discharge Activity: Resume usual activity and Increase activity as tolerated Coding Level of Care Code 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 [employer] Documented by User: Agus Villalobos MD 11/26/22 11:42 HPI - Extremity Problem General: Chief complaint: Extremity Injury, Lower Stated complaint: leg infection sent by DR salvador Time Seen by Provider: 11/13/22 16:58 PFSH ED PFSH: Medical History Anxiety and depression CAD (coronary artery disease) Chewing tobacco nicotine dependence Age [age] (currently) Chronic right shoulder pain DDD (degenerative disc disease) Decreased glomerular filtration rate (GFR) Eustachian tube dysfunction Fusion of lumbar spine GERD (gastroesophageal reflux disease) Gout Hearing loss Hyperkalemia Hypertension Knee pain, right Migraines Osteoarthritis Pain in left ankle Parkinsons disease Polyp of esophagus Polyp of tongue Pre-procedural examination Swelling of left ankle joint TIA (transient ischemic attack) Surgical History History of back surgery x6 different surgeries on the spine History of total knee arthroplasty Left TKA x2 revision needed due to loosening of hardware, no history of infection S/P cervical spinal fusion Family History Father Stroke Heart attack Brother Hypertension Sister Heart attack Social History Smoking and tobacco status: current every day smoker (chewing) smokeless tobacco Smokeless tobacco user: chewing tobacco Alcohol intake: former Desire information about alcohol rehabilitation?: No Substance/Drug Use: current Substance/Drug use frequency: other Other substance/drug use details: medical marijuana Desire information about substance/drug rehabilitation?: No Caregiver/support person: No Lives independently: Yes Household members: none Marital status: Single Highest education level completed: Some College, No Degree service: No Current occupational status: retired and disabled Do you think of yourself as: Straight/Heterosexual Current gender identity: Male Course Vital Signs: Vital signs: Vital Signs Temperature 97.8 F 11/17/22 11:20 Pulse Rate 73 11/17/22 11:20 Respiratory Rate 16 11/17/22 11:20 Blood Pressure 111/69 11/17/22 11:20 Pulse Oximetry 95 11/17/22 11:20 Oxygen Delivery Me thod Room Air 11/17/22 08:00 MDM - Extremity (Nontraumatic) Medical Decision Making Patient presents to the ER with complaints of right and left foot swelling pain and redness. Patient has had recent surgery on his left ankle for pyogenic arthritis. Patient has been on daily doses of Rocephin. Patient's white count has not decreased. Patient's had increased pain and swelling and was sent over by Dr. Salvador for probable sepsis and IV antibiotics and admission. Patient's blood cell count continues to be elevated at 16.9, his lactic acid and procalcitonin are normal, potassium is elevated 5.5, chest x-ray was obtained which showed negative for infiltrate. Patient was given 1 milligram of Dilaudid, 1 L normal saline, 3.375 g of Zosyn and 1 g of vancomycin while in ER. Due to patient's recent surgery and failure of outpatient antibiotics it is anticipated that he will be admitted, placed on IV antibiotics, Patient care handoff received from Dr. Cruz pending completion of ED evaluation. Given clinical history and outpatient evaluation/treatment prior to presenting to the Emergency Department/being referred to the emergency clinical concern for foot infections. The results of ED evaluation were discussed with the patient including plan for admission due to requirement for level of care not available if discharged to prevent significant worsening/deterioration. Patient agreeable with plan. Discussed with hospitalist service who was agreeable to admit patient. Agus Villalobos MD Emergency Medicine Lab Data 11/16/22 04:40 11/16/22 04:40 Radiology Impressions Chest X-Ray 11/13/22 21:53 IMPRESSION: 1. Negative for infiltrate 2. Left-sided PICC line with tip approaching the atrial caval junction. 3. Cervical spine surgical hardware somewhat visualized. Ankle MRI 11/14/22 09:13 IMPRESSION: 1. Diffuse soft tissue edema with small joint effusion likely due to cellulitis and soft tissue infection. 2. Normal bone marrow signal. No evidence of osteomyelitis. 3. Additional nonacute findings as described above Laboratory Results WBC 16.9 10^3/uL (4.0-10.0) H 11/13/22 16:55 RBC 4.94 10^6/uL (4.1-5.3) 11/13/22 16:55 Hgb 13.9 g/dL (11.7-16.6) 11/13/22 16:55 Hct 42.9 % (42.0-52.0) 11/13/22 16:55 MCV 86.8 fl (80-94) 11/13/22 16:55 MCH 28.1 pg (28.0-34.0) 11/13/22 16:55 MCHC 32.4 g/dL (30.0-36.0) 11/13/22 16:55 RDW 15.2 % (12.1-15.1) H 11/13/22 16:55 Plt Count 321 10^3/cmm (130-400) 11/13/22 16:55 MPV 10.3 fL (7.4-10.4) 11/13/22 16:55 Neut % (Auto) 75.6 % 11/13/22 16:55 Lymph % (Auto) 13.3 % 11/13/22 16:55 Jera[place] % (Auto) 8.8 % 11/13/22 16:55 Eos % (Auto) 0.4 % 11/13/22 16:55 Baso % (Auto) 0.4 % 11/13/22 16:55 Neut # (Auto) 12.83 10^3/uL (1.8-7.7) H 11/13/22 16:55 Lymph # (Auto) 2.3 10^3/uL (0.8-4.8) 11/13/22 16:55 [place] # (Auto) 1.5 10^3/uL (0.2-0.9) H 11/13/22 16:55 Eos # (Auto) 0.1 10^3/uL (0.0-0.8) 11/13/22 16:55 Baso # (Auto) 0.1 10^3/uL (0.0-0.1) 11/13/22 16:55 Nucleated RBC % (auto) 0 % 11/13/22 16:55 Nucleated RBCs # 0.0 /100WBC 11/13/22 16:55 Sodium 138 mmol/L (136-145) 11/13/22 19:31 Potassium 5.5 mmol/L (3.5-5.1) H 11/13/22 19:31 Chloride 101 mmol/L (98-107) 11/13/22 19:31 Carbon Dioxide 28 mmol/L (22-29) 11/13/22 19:31 Anion Gap 14.5 (5-19) 11/13/22 19:31 BUN 11 mg/dL (6-20) 11/13/22 19:31 Creatinine 0.8 mg/dL (0.7-1.2) 11/13/22 19:31 GFR Calculation 99.3 mL/min (90-130) 11/13/22 19:31 Glucose 97 mg/dL (65-115) 11/13/22 19:31 Calculated Osmolality 285 mOsm/kg (285-295) 11/13/22 19:31 Lactic Acid 0.8 mmol/L (0.5-2.2) 11/13/22 19:31 Calcium 8.1 mg/dL (8.5-10.5) L 11/13/22 19:31 Total Bilirubin 0.5 mg/dL (0.15-1.2) 11/13/22 19:31 AST 14 U/L (0-40) 11/13/22 19:31 ALT < 5 U/L (0-41) 11/13/22 19:31 Alkaline Phosphatase 69 U/L (40-130) 11/13/22 19:31 Total Protein 6.6 g/dL (6.6-8.7) 11/13/22 19: Albumin 3.2 g/dL (3.5-5.2) L 11/13/22 19: Globulin 3.4 g/dL (1.3-4.6) 11/13/22 19:31 Procalcitonin 0.14 ng/mL (0-0.5) 11/13/22 19:31 Urine Color Yellow (Yellow) 11/13/22 16:40 Urine Appearance Clear (CLEAR) 11/13/22 16:40 Urine pH 5 (5-7) 11/13/22 16:40 Ur Specific [place] 1.020 (1.005-1.030) 11/13/22 16:40 Urine Protein Neg (Negative) 11/13/22 16:40 Urine Glucose (UA) Norm (Normal) 11/13/22 16:40 Urine Ketones 1+ (Negative) H 11/13/22 16:40 Urine Blood 2+ (Negative) H 11/13/22 16:40 Urine Nitrate Negative (Negative) 11/13/22 16:40 Urine Bilirubin Neg (Negative) 11/13/22 16:40 Urine Urobilinogen Norm mg/dL (Negative) 11/13/22 16:40 Ur Leukocyte Esterase Negative (Negative) 11/13/22 16:40 Urine RBC Rare /hpf (0-2) 11/13/22 16:40 Urine WBC 0-4 /hpf (0-5) H 11/13/22 16:40 Ur Squamous Epith Cells Rare /hpf (0-5) 11/13/22 16:40 Amorphous Sediment Not Reportable 11/13/22 16:40 Urine Bacteria Trace /hpf (NONE) 11/13/22 16:40 Urine Mucus 2+ /hpf 11/13/22 16:40 Discharge Plan Discharge Patient Disposition: Admitted As Inpatient Admit Provider: Aileen Carvalho Clinical Impression: Left foot infection, Right foot infection Condition: Stable Discharge Diet: Cardiac Discharge Activity: Resume usual activity and Increase activity as tolerated Coding Level of Care Code 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
[2022-11-13 17:35] LABS: Basophils # 0.1 10^3/uL (0.0-0.1); Basophils % 0.4 %; Eosinophils # 0.1 10^3/uL (0.0-0.8); Eosinophils % 0.4 %; Hematocrit 42.9 % (42.0-52.0); Hemoglobin 13.9 g/dL (11.7-16.6); Lymphocytes # 2.3 10^3/uL (0.8-4.8); Lymphocytes % 13.3 %; Mean Corpuscular HGB Conc 32.4 g/dL (30.0-36.0); Mean Corpuscular Hemoglobin 28.1 pg (28.0-34.0); Mean Corpuscular Volume 86.8 fl (80-94); Mean Platelet Volume 10.3 fL (7.4-10.4); Monocytes # 1.5 10^3/uL (0.2-0.9); Monocytes % 8.8 %; Neutrophils # 12.83 10^3/uL (1.8-7.7); Neutrophils % 75.6 %; Nucleated Red Blood Cells % 0 %; Platelet Count 321 10^3/cmm (130-400); Red Blood Count 4.94 10^6/uL (4.1-5.3); Red Cell Distribution Width 15.2 % (12.1-15.1); White Blood Count 16.9 10^3/uL (4.0-10.0)
[2022-11-13 17:45] LABS: Glucose Urine UA Norm (Normal); Ketones Urine 1+ (Negative); Protein Urine Neg (Negative); Urine Appearance Clear (CLEAR); Urine Color Yellow (Yellow); pH Urine 5 (5-7)
[2022-11-13 17:46] LABS: Add Urine Microscopic? YES; Bilirubin Urine Neg (Negative); Blood Urine 2+ (Negative); Leukocyte Esterase Urine Negative (Negative); Nitrate Urine Negative (Negative); RBC Urine RARE /hpf (0-2); Urobilinogen Urine Norm (Negative); WBC Urine 0-4 /hpf (0-5)
[2022-11-13] MEDS: ondansetron 2 mg/ML SDV 2 mL 4 MG IVP (17:46)
[2022-11-13] MEDS: HYDROmorphone 1 mg/mL INJ 1 mL 0.5 MG IVP ×2 (17:46→19:11)
[2022-11-13] MEDS: piperacillin-tazobactam 3.375 GM in sodium chloride 0.9% (plus) 50 ML IV ×2 (17:46→23:17)
[2022-11-13 17:47] LABS: Add Urine Culture? No; Bacteria Urine TRACE /hpf; Mucus Urine 2+ /hpf; Squamous Epithelial Cell Urine RARE /hpf (0-5)
[2022-11-13] MEDS: vancomycin 1,000 MG in sodium chloride 0.9% 250 ML 250 MG IV (18:55)
--- NOTE | 2022-11-13 19:06 | PC.NURSE ---
REPORT GIVEN TO XIAO Kimball RN ASSUMED CARE.
--- NOTE | 2022-11-13 19:18 | PC.NURSE ---
received report and took over patient care from ANSELMO Bentley at 1900
[2022-11-13] MEDS: morphine 4 mg/mL SDV 1 mL IVP (20:06)
[2022-11-13 20:09] LABS: Lactic Sepsis W/Reflex 0.8 mmol/L (0.5-2.2)
[2022-11-13 20:10] LABS: Alanine Aminotransferase < 5 U/L (0-41); Albumin Level 3.2 g/dL (3.5-5.2); Alkaline Phosphatase 69 U/L (40-130); Blood Urea Nitrogen 11 mg/dL (6-20); Calcium 8.1 mg/dL (8.5-10.5); Carbon Dioxide 28 mmol/L (22-29); Chloride 101 mmol/L (98-107); Creatinine Clr Calc Pharmacy 96.4417; Globulin 3.4 g/dL (1.3-4.6); Glomerular Filtration Rate 99.3 mL/min (90-130); Glucose 97 mg/dL (65-115); Osmolality Calculated 285 mOsm/kg (285-295); Sodium 138 mmol/L (136-145); Total Bilirubin 0.5 mg/dL (0.15-1.2); Total Protein 6.6 g/dL (6.6-8.7)
[2022-11-13 20:11] LABS: Anion Gap 14.5 (5-19); Aspartate Amino Transferase 14 U/L (0-40); Potassium 5.5 mmol/L (3.5-5.1)
[2022-11-13 20:16] LABS: Procalcitonin 0.14 ng/mL (0-0.5)
--- NOTE | 2022-11-13 21:00 | PM.HP ---
Providers/Chief Complaint Admitting Physician: Palmer Cifuentes MD Primary Care Provider: Wali Moon MD Chief Complaint: leg infection sent by DR salvador History of Present Illness Jude Burden is a 57 year old male who was recently admitted to the hospital between october 31 to november 05 for acute swelling left ankle with synovial fluid analysis suggestive of septic arthritis. Gram stain showed GPC in pairs, CX remained negative, he was discharged with Ceftriaxone 2g iv daily with which he has been complaint. His ankle appeared to be improving at time of discharge. However since then he has again developed pain in his ankle to the point that he is unable to bear weight. His CRP has trended up to 199. He is febrile. He saw Dr. Salvador earlier today where he was noted to have recurrence of swelling. He is likely planned to return to the OR in am. ROS + for diarrhea for which he took Imodium on Saturday since then his bowel movements have become more solid. He continues to have fever with chills at home. Denies any chest pain, nausea vomiting, headache. Blood pressures have remained stable at home. Review of Systems General: Reports: 10 or more systems reviewed and unremarkable except in HPI and below Const: Denies: fever(s), chills, body aches, change in appetite, change in weight, malaise, night sweats, diaphoresis, change in sleep pattern, daytime sleepiness or snoring Eyes: Denies: change in vision, blurry vision, photophobia, eye discomfort or eye discharge ENMT: Denies: throat pain, enlarged tonsils, hoarseness, mouth pain, oral sores, dry mouth, tinnitus, nasal congestion or post nasal drip Card: Denies: chest pain, palpitations, irregular heart rhythm, edema, swelling of feet/ankles, lightheadedness, syncope, pre-syncope, dyspnea on exertion, orthopnea, leg pain with exertion or acrocyanosis Resp: Denies: dyspnea, productive cough, non-productive cough, wheezing, stridor, pain on inspiration, change in phlegm color, hemoptysis or chest congestion GI: Denies: abdominal pain, nausea, vomiting, hematemesis, coffee ground emesis, dysphagia, heartburn, diarrhea, constipation, bloating, GI cramping, change in bowel habits, pain on defecation, hematochezia or melena : Denies: flank pain, difficulty urinating, dysuria, urinary frequency, urinary urgency, urinary hesitancy, urinary dribbling, difficulty starting urination, change in urine stream, nocturia or hematuria Musc: Denies: neck pain, back pain, extremity pain, joint pain, joint swelling, joint redness, joint stiffness or limited range of motion Neuro: Denies: headache(s), numbness in extremities, weakness in extremities, sensory changes, lack of coordination, difficulty walking, frequent falls, dizziness, vertigo, confusion, Slurred speech present, difficulty communicating thoughts or seizure-like activity Psych: Denies: anxiety, depression, mood swings, panic attacks, hopelessness or irritability Endo: Denies: polyuria, polydipsia, tired all the time, cold intolerance, excessive sweating, flushing or heat intolerance [place]/Lymph: Denies: easy bruising or easy bleeding All/Imm: Denies: tongue swelling, facial swelling or acute wheezing Medications/Allergies Home Medications Medication Instructions Recorded Confirmed Last Taken Type acetaminophen 500 mg tablet 1,000 mg PO Q12H PRN Pain 06/04/22 11/13/22 11/13/22 12:00 History colchicine 0.6 mg tablet 0.6 mg PO DAILY PRN gout #90 tabs 06/12/22 11/13/22 11/07/22 Rx omeprazole 40 mg capsule,delayed 40 mg PO QAM #90 caps 06/12/22 11/13/22 11/13/22 Rx release ondansetron 4 mg disintegrating 4 mg PO Q8H PRN nausea and 09/06/22 11/13/22 11/10/22 Rx tablet vomiting #30 tabs carbidopa 25 mg-levodopa 250 mg 1.5 - 2 tab PO Q6H 10/31/22 11/13/22 11/13/22 12:00 History tablet amlodipine 5 mg tablet 10 mg PO DAILY 30 days #30 tabs 11/05/22 11/13/22 11/12/22 Rx metoprolol tartrate 50 mg tablet 50 mg PO BID #180 tabs 11/05/22 11/13/22 11/12/22 Rx Ceftriaxone Infusion See Rx Instructions .Route .COMPLEX 11/13/22 11/13/22 Unknown History Allergies Allergy/AdvReac Type Severity Reaction Status Date / Time allopurinol Allergy Unknown Unknown Verified 11/13/22 15:12 ketorolac [From Toradol] Allergy Unknown Unknown Verified 11/13/22 15:12 orphenadrine [From Norflex] Allergy Unknown Unknown Verified 11/13/22 15:12 promethazine [From Phenergan] Allergy Unknown Unknown Verified 11/13/22 15:12 tramadol Allergy Unknown Unknown Verified 11/13/22 15:12 hydrocodone Allergy Unknown Verified 11/13/22 15:12 methadone Allergy Unknown Verified 11/13/22 15:12 oxycodone Allergy Unknown Verified 11/13/22 15:12 narcotics Allergy Severe Unknown Uncoded 11/13/22 13:56 PFSH Acute PFSH: Medical History (Updated 11/14/22 @ 10:32 by Aileen Carvalho MD) Anxiety and depression CAD (coronary artery disease) Chewing tobacco nicotine dependence Age [age] (currently) Chronic right shoulder pain DDD (degenerative disc disease) Decreased glomerular filtration rate (GFR) Eustachian tube dysfunction Fusion of lumbar spine GERD (gastroesophageal reflux disease) Gout Hearing loss Hypertension Knee pain, right Migraines Osteoarthritis Pain in left ankle Parkinsons disease Polyp of esophagus Polyp of tongue Pre-procedural examination Septic arthritis of left ankle Swelling of left ankle joint TIA (transient ischemic attack) Surgical History (Updated 11/14/22 @ 10:32 by Aileen Carvalho MD) History of back surgery x6 different surgeries on the spine History of total knee arthroplasty Left TKA x2 revision needed due to loosening of hardware, no history of infection S/P cervical spinal fusion Family History Father Stroke Heart attack Brother Hypertension Sister Heart attack Social History Smoking and tobacco status: current every day smoker (chewing) smokeless tobacco Smokeless tobacco user: chewing tobacco Alcohol intake: former Desire information about alcohol rehabilitation?: No Substance/Drug Use: current Substance/Drug use frequency: other Other substance/drug use details: medical marijuana Desire information about substance/drug rehabilitation?: No Caregiver/support person: No Lives independently: Yes Household members: none Marital status: Single Highest education level completed: Some College, No Degree service: No Current occupational status: retired and disabled Do you think of yourself as: Straight/Heterosexual Current gender identity: Male Vitals/I&O/Wt Last Vital Signs Temp 101.8 F H 11/13/22 21:28 Pulse 82 11/13/22 21:28 Resp 20 H 11/13/22 21:28 BP 124/79 11/13/22 21:28 Pulse Ox 96 11/13/22 21:28 O2 Del Method Room Air 11/13/22 21:47 11/13/22 11/13/22 11/14/22 14:59 22:59 06:59 Intake Total 1300 / 1300 Balance 1300 / 1300 Weight last 48 hrs Weight 77.111 kg Physical Exam Narrative: EXAM NARRATIVE: General: No acute distress, AO x3 HEENT: PERRLA, pupils bilaterally equal and reactive Chest: equal good air entry bilaterally CVS: S1-S2 regular, no murmurs, no tachycardia, no gallops, no rubs Abdomen: Soft, nontender, no organomegaly, bowel sounds present Neuro: No focal deficits, no facial deformity, AO x3, power 5/5 in all limbs Data 11/14/22 05:45 11/14/22 07:08 Micro: Microbiology 11/13/22 17:40 Blood Culture - Preliminary Blood SPECIMEN COLLECTED 11/13/22 17:46 Blood Culture - Preliminary Blood SPECIMEN COLLECTED A&P Assessment and plan (1) Septic arthritis of left ankle: Recently diagnosed with cx negative septic arthritis for which patient is on treatment with Ceftriaxone 2 g iv daily. [employer] testing from last time still pending. he has had recurrence in symptoms with joint swelling, fever Possible planned to return to OR with Dr. Salvador tomorrow Empiric treatment with Zosyn and vancomycin with close renal monitoring Blood cx, ESR and CRP done in ED check c diff PCR given diarrhea (2) Hyperkalemia: K at 5.5, lab notes hemolysis, will repeat with am labs (3) Parkinsons disease: continue home dose of carbidopa-levodopa (4) Hypertension: continue amlodipine 10mg daily and metoprolol 50 BID. Goal blood pressure less than 140/90 mmHg. Continue to monitor and uptitrate accordingly. Plan Full code. Cardiac diet, n.p.o. after midnight. Heparin 5000 every 12 hourly for DVT prophylaxis. Protonix for PUD prophylaxis Attestations Medical Necessity Statement*: > 2midnight admission for septic arthritis, iv antibiotics, possible OR debridement Diagnoses Septic arthritis of left ankle M00.9 Hyperkalemia E87.5 Parkinsons disease G20 Hypertension I10
--- NOTE | 2022-11-13 21:53 | XRR_ITS ---
PROCEDURE INFORMATION: Exam: XR Chest Exam date and time: 11/13/2022 9:03 PM Age: 57 years old Clinical indication: Fever and other: Poss pneumonia; Additional info: Evalaute for pneumonia TECHNIQUE: Imaging protocol: Radiologic exam of the chest. Views: 1 view. COMPARISON: CR (CHEST, ) 11/03/2022 11:27 AM FINDINGS: Tubes, catheters and devices: Left-sided PICC line with tip approaching the atrial caval junction. Lungs: Unremarkable. No consolidation. Pleural spaces: Unremarkable. No pleural effusion. No pneumothorax. Heart/Mediastinum: Unremarkable. No cardiomegaly. Bones/joints: Cervical spine surgical hardware somewhat visualized. XR/XR chest 1V portable [id number] IMPRESSION: 1. Negative for infiltrate 2. Left-sided PICC line with tip approaching the atrial caval junction. 3. Cervical spine surgical hardware somewhat visualized.
[2022-11-13] MEDS: enoxaparin 40 mg/0.4 mL Syringe SUBCUT (23:59)
[2022-11-13] MEDS: carbidopa-levodopa 25-250mg Tablet 2 EACH PO (23:59)
[2022-11-13] MEDS: acetaminophen 325 mg Tablet 650 MG PO (23:59)
[2022-11-14] VITALS (12 sets, daily range): BP systolic 91–110; BP diastolic 54–67; PULSE 75–107; RESP 16–21; TEMP 36.8–38; O2SAT 92–96
[2022-11-14] MEDS: carbidopa-levodopa 25-250mg Tablet 2 EACH PO ×4 (05:38→23:15)
[2022-11-14 06:23] LABS: Basophils # 0.1 10^3/uL (0.0-0.1); Basophils % 0.3 %; Eosinophils # 0.1 10^3/uL (0.0-0.8); Eosinophils % 0.3 %; Hematocrit 38.8 % (42.0-52.0); Hemoglobin 12.1 g/dL (11.7-16.6); Lymphocytes # 2.6 10^3/uL (0.8-4.8); Lymphocytes % 12.8 %; Mean Corpuscular HGB Conc 31.2 g/dL (30.0-36.0); Mean Corpuscular Hemoglobin 27.7 pg (28.0-34.0); Mean Corpuscular Volume 88.8 fl (80-94); Monocytes % 9.9 %; Neutrophils # 15.34 10^3/uL (1.8-7.7); Nucleated Red Blood Cells % 0 %; Platelet Count 293 10^3/cmm (130-400); Red Blood Count 4.37 10^6/uL (4.1-5.3); Red Cell Distribution Width 15.4 % (12.1-15.1); White Blood Count 20.2 10^3/uL (4.0-10.0)
[2022-11-14] MEDS: vancomycin 1,250 MG/250 ML PIGGYBACK 250 MG IV ×2 (06:40→18:23)
[2022-11-14] MEDS: HYDROmorphone 1 mg/mL INJ 1 mL 0.5 MG IVP (07:27)
--- NOTE | 2022-11-14 07:47 | PM.CONSULT ---
Providers/Reason For Consult Consulting Physician/Specialty*: Dr. Juan Chirinos, Marciano.P.M./PODIATRY Reason for Consult*: Readmission, concern for left ankle septic arthritis Attending Physician: Palmer Cifuentes MD Primary Care Provider: Wali Moon MD History of Present Illness History of Present Illness Jude Burden is a 57 year old male who was recently admitted to the hospital for left ankle septic arthritis. During his last admission left ankle arthrocentesis was obtained which showed rare gram-positive cocci in pairs on the Gram stain however, no cultures resulted between the left ankle arthrocentesis and the left ankle arthroscopy with washout. After the ankle arthroscopy and washout (DOS: 11/01/2022) the patient stabilized and was discharged from the hospital with PICC line and IV antibiotics. Empiric antibiotic choice of Rocephin daily was made for the patient. However, since discharge the patient states that he has become increasingly more sick with fever, chills, nausea, vomiting, diarrhea. He states that this began last (11/08/2022) and continued to worsen over the weekend. Patient went for his IV infusions yesterday morning (11/13/2022) and there was concern for his health. CBC, ESR, CRP were ordered which showed leukocytosis with an elevated CRP of 199. He then followed up with myself, Dr. Chirinos in the office where again, he was noted to be ill in appearance with exquisite tenderness to the left ankle and now to the right big toe joint. He was taken down to the emergency department for direct admission to the hospital for IV antibiotics, further work-up and probable left ankle arthroscopy with washout. Review of Systems General: Reports: 10 or more systems reviewed and unremarkable except in HPI and below Const: Denies: fever(s), chills, body aches or change in appetite Eyes: Denies: change in vision or blurry vision Card: Denies: chest pain, palpitations or irregular heart rhythm Resp: Denies: dyspnea GI: Denies: abdominal pain, nausea, vomiting or diarrhea Musc: Reports: joint stiffness Skin/Breast: Reports: non-healing lesions and lesions Neuro: Reports: numbness in extremities Medications/Allergies Home Medications Medication Instructions Recorded Confirmed Last Taken Type acetaminophen 500 mg tablet 1,000 mg PO Q12H PRN Pain 12/1911/13/22 11/13/22 12:00 History colchicine 0.6 mg tablet 0.6 mg PO DAILY PRN gout #90 tabs 06/12/22 11/13/22 11/07/22 Rx omeprazole 40 mg capsule,delayed 40 mg PO QAM #90 caps 06/12/22 11/13/22 11/13/22 Rx release ondansetron 4 mg disintegrating 4 mg PO Q8H PRN nausea and 09/06/22 11/13/22 11/10/22 Rx tablet vomiting #30 tabs carbidopa 25 mg-levodopa 250 mg 1.5 - 2 tab PO Q6H 10/31/22 11/13/22 11/13/22 12:00 History tablet amlodipine 5 mg tablet 10 mg PO DAILY 30 days #30 tabs 11/05/22 11/13/22 11/12/22 Rx metoprolol tartrate 50 mg tablet 50 mg PO BID #180 tabs 11/05/22 11/13/22 11/12/22 Rx Ceftriaxone Infusion See Rx Instructions .Route .COMPLEX 11/13/22 11/13/22 Unknown History Allergies Allergy/AdvReac Type Severity Reaction Status Date / Time allopurinol Allergy Unknown Unknown Verified 11/13/22 15:12 ketorolac [From Toradol] Allergy Unknown Unknown Verified 11/13/22 15:12 orphenadrine [From Norflex] Allergy Unknown Unknown Verified 11/13/22 15:12 promethazine [From Phenergan] Allergy Unknown Unknown Verified 11/13/22 15:12 tramadol Allergy Unknown Unknown Verified 11/13/22 15:12 hydrocodone Allergy Unknown Verified 11/13/22 15:12 methadone Allergy Unknown Verified 11/13/22 15:12 oxycodone Allergy Unknown Verified 11/13/22 15:12 narcotics Allergy Severe Unknown Uncoded 11/13/22 13:56 Current Medications Generic Name Dose Route Start Last Admin Trade Name Freq PRN Reason Stop Dose Admin Acetaminophen 650 mg 11/13/22 23:33 11/13/22 23:59 Acetaminophen 325 Mg Tablet PO 650 mg Q6H PRN Administration Mild/Mod Pain Or Temp >/= 101 Carbidopa/Levodopa 2 each 11/14/22 00:00 11/14/22 05:38 Carbidopa-Levodopa 25-250mg Tablet PO 2 each Q6H JB Administration Enoxaparin Sodium 40 mg 11/13/22 23:45 11/13/22 23:59 Enoxaparin 40 Mg/0.4 Ml Syringe SUBCUT 40 mg Q24H JB Administration Hydromorphone HCl 0.5 mg 11/14/22 06:08 11/14/22 07:27 Hydromorphone 1 Mg/Ml Inj 1 Ml IVP 0.5 mg Q6H PRN Administration SEVERE PAIN Piperacillin Sod/Tazobactam 50 mls @ 12.5 mls/hr 11/14/22 00:00 11/14/22 03:24 Sod 3.375 gm/ Sodium Chloride IV Infused Q8H JB Infusion Vancomycin/PEG/[place]/Lysine/Water 1,250 mg in 250 mls @ 250 mls/hr 11/14/22 07:00 11/14/22 06:40 Vancocin IV 250 mls/hr Q12H JB Administration PFSH Acute PFSH: Medical History (Updated 11/14/22 @ 07:53 by Juan Chirinos DPM) Anxiety and depression CAD (coronary artery disease) Chewing tobacco nicotine dependence Age [age] (currently) Chronic right shoulder pain DDD (degenerative disc disease) Decreased glomerular filtration rate (GFR) Eustachian tube dysfunction GERD (gastroesophageal reflux disease) Gout Hearing loss Hypertension Knee pain, right Migraines Osteoarthritis Pain in left ankle Parkinsons disease Polyp of esophagus Polyp of tongue Pre-procedural examination Septic arthritis of left ankle Swelling of left ankle joint Surgical History History of back surgery x6 different surgeries on the spine Family History Father Stroke Heart attack Brother Hypertension Sister Heart attack Social History Smoking and tobacco status: current every day smoker (chewing) smokeless tobacco Smokeless tobacco user: chewing tobacco Alcohol intake: former Desire information about alcohol rehabilitation?: No Substance/Drug Use: current Substance/Drug use frequency: other Other substance/drug use details: medical marijuana Desire information about substance/drug rehabilitation?: No Caregiver/support person: No Lives independently: Yes Household members: none Marital status: Single Highest education level completed: Some College, No Degree service: No Current occupational status: retired and disabled Do you think of yourself as: Straight/Heterosexual Current gender identity: Male Vitals/I&O/Wt Last Vital Signs Temp 99.8 F H 11/14/22 07:39 Pulse 99 11/14/22 07:39 Resp 16 11/14/22 07:39 BP 110/54 11/14/22 07:39 Pulse Ox 93 11/14/22 07:39 O2 Del Method Room Air 11/14/22 07:39 11/13/22 11/14/22 11/14/22 22:59 06:59 14:59 Intake Total 1540 / 1540 50 / 1590 Output Total 575 / 575 Balance 1540 / 1540 -525 / 1015 Weight last 48 hrs Weight 170 lb Weight 170 lb Physical Exam Narrative: BELOW IS A FOCUSED LOWER EXTREMITY EXAM GENERAL: A&O x 3 VASCULAR: DP/PT pulses palpable 2/4 with CFT intact, <3seconds to distal digits. Marked edema to left ankle in comparison to contralateral limb DERMATOLOGICAL: Left ankle is warm to touch in comparison to contralateral ankle. No open wounds appreciated MUSCULOSKELETAL: Extreme tenderness with palpation of left ankle. Unable to range the left ankle joint secondary to pain. Left ankle feels full to touch and engorged. No calf tenderness. Extreme tenderness with palpation of right first metatarsophalangeal joint NEUROLOGICAL: Neurological sensation to the affected foot and ankle is present through L4-S1 dermatomes with no hyper/hypoesthesias, negative Tinel or Valleix's sign Data 11/14/22 05:45 11/13/22 19:31 Micro: Microbiology 11/13/22 17:40 Blood Culture - Preliminary Blood SPECIMEN COLLECTED 11/13/22 17:46 Blood Culture - Preliminary Blood SPECIMEN COLLECTED A&P Assessment and plan (1) Septic arthritis of left ankle: (2) Swelling of left ankle joint: (3) Pain in left ankle: (4) Pain of right foot: Plan LABS AND CLINICAL INFO: WBC 20.2 Temp Tmax 101.8 RR 21 HR 107 CRP 199 Blood cultures: Pending PLAN: -N.p.o. for procedure today 11/14/2022 at noon -Plan for left ankle arthroscopy with washout today at noon as well as right first metatarsophalangeal joint arthrocentesis -Start broad-spectrum antibiotics -Monitor cultures -Trend labs -Nonweightbearing to left lower extremity -Discharge plan: To be determined -Podiatry will continue to round on patient daily and provide recommendations. Coding Level of Care Code Acute Code for g Fwd Diagnoses Septic arthritis of left ankle M00.9 Swelling of left ankle joint M25.472 Pain in left ankle M25.572 Pain of right foot M79.671
[2022-11-14 07:51] LABS: Alanine Aminotransferase < 5 U/L (0-41); Albumin Level 2.7 g/dL (3.5-5.2); Alkaline Phosphatase 69 U/L (40-130); Anion Gap 15.9 (5-19); Aspartate Amino Transferase 12 U/L (0-40); Blood Urea Nitrogen 11 mg/dL (6-20); Calcium 8.3 mg/dL (8.5-10.5); Carbon Dioxide 25 mmol/L (22-29); Chloride 100 mmol/L (98-107); Creatinine Clr Calc Pharmacy 96.4417; Globulin 3.3 g/dL (1.3-4.6); Glomerular Filtration Rate 99.3 mL/min (90-130); Glucose 85 mg/dL (65-115); Osmolality Calculated 283 mOsm/kg (285-295); Potassium 3.9 mmol/L (3.5-5.1); Sodium 137 mmol/L (136-145); Total Bilirubin 0.6 mg/dL (0.15-1.2)
[2022-11-14 07:56] LABS: Procalcitonin 0.23 ng/mL (0-0.5)
[2022-11-14] MEDS: piperacillin-tazobactam 3.375 GM in sodium chloride 0.9% (plus) 50 ML IV ×3 (08:24→23:16)
[2022-11-14] MEDS: amlodipine 5 mg Tablet 10 MG PO (08:24)
[2022-11-14] MEDS: pantoprazole DR 40 mg Tablet PO ×2 (08:24→18:02)
[2022-11-14] MEDS: metoprolol tartrate 50 mg Tablet PO ×2 (08:24→18:02)
--- NOTE | 2022-11-14 09:13 | MR_ITS ---
WS: [id number] EXAMINATION: MR ankle RT wo con* [id number] ORDER DATE: 11/14/2022 9:21 AM COMPARISON: None. HISTORY: Possible septic arthritis CONTRAST: None. TECHNIQUE: Axial proton density fat sat, axial T1, sagittal proton density, sagittal STIR, coronal T2 fat sat, and coronal T1 sequences performed. FINDINGS: Some images degraded by motion artifact. Diffuse soft tissue edema about the RIGHT ankle. Degenerative arthritis at the ankle mortise. Entheso phyte at the Achilles calcaneal insertion. Distal Achilles appears intact. Chronic appearing split te ar involving the peroneal brevis. Tenosynovitis peroneal tendon sheaths. Normal bone marrow signal in the talar dome. Small joint effusion with soft tissue edema suspicious for cellulitis. Normal bone marrow signal. No evidence of osteomyelitis. Normal visualized extensor a nd flexor tendons. MR/MR ankle RT wo con* [id number] IMPRESSION: 1. Diffuse soft tissue edema about the RIGHT ankle compatible with cellulitis. Small joint effusion. 2. No evidence of osteomyelitis. 3. Split tear involving the peroneal brevis with tenosynovitis along the peron eal tendon sheath
--- NOTE | 2022-11-14 09:13 | MR_ITS ---
WS: [id number] EXAMINATION: MR ankle LT wo con* [id number] ORDER DATE: 11/14/2022 9:21 AM COMPARISON: None. HISTORY: Possible septic arthritis CONTRAST: None. TECHNIQUE: Axial proton density fat sat, axial T1, sagittal proton density, sagittal STIR, coronal T2 fat sat, and coronal T1 sequences performed. FINDINGS: Some images degraded by motion. Moderate degenerative arthritis ankle mortise. Diffuse soft tissue edema. Normal talar dome. Small molly int effusion. Degenerative arthritis at the talocalcaneal articulation. Small amount of fluid in the retrocalcaneal bursa. Tiny tear of the distal Achilles at the insertion. Tenosynovitis along the peroneal tendon sheaths. Tenosynovitis along the flexor hallucis longus. Norm al extensor compartment tendons. Tiny chronic avulsion at the tip of the medial malleolus. Normal lat eral malleolus. Normal deltoid ligament. Degenerative arthritis with subchondral cystic change taloca lcaneal articulation. No evidence of osteomyelitis. MR/MR ankle LT wo con* [id number] IMPRESSION: 1. Diffuse soft tissue edema with small joint effusion likely due to celluliti s and soft tissue infection. 2. Normal bone marrow signal. No evidence of osteomyelitis. 3. Additional nonacute findings as described above
--- NOTE | 2022-11-14 10:10 | PM.CONSULT ---
Providers/Reason For Consult Consulting Physician/Specialty*: Aileen Carvalho MD/ Infectious Disease Reason for Consult*: septic arthritis Requesting Physician: Dr. Chirinos/Podiatry Attending Physician: Palmer Cifuentes MD Primary Care Provider: Wali Moon MD History of Present Illness History of Present Illness Jude Burden is a 57 year old male who was recently admitted to the hospital between October 31 to November 05 at that time presented with acute onset swelling of the left ankle. Initial impression was that of gout versus septic arthritis. He underwent synovial fluid aspiration from the ankle joint which showed 60,000 WBCs with 96% PMNLs raising concern for septic arthritis. Subsequently he underwent I&D of the left ankle on October 31, 2022. His Gram stain returned with gram-positive cocci however cultures remain negative to date. There were no crystals identified by pathology. The [facility] joint infection panel was sent out for DNA sequencing to [facility], results from this are currently pending as well. He was treated with piperacillin/tazobactam and vancomycin as an inpatient, transition to ceftriaxone 2 g IV daily at the time of discharge which she has been getting via the GI Lab daily infusion. Overall the cause of septic arthritis remained unclear, patient did not have any history of trauma preceding the onset of symptoms. Duration of symptoms was 2 to 3 days. At the time of discharge he was feeling improved, however now he returned with recurrent swelling and pain involving joints of both feet to the point where he is unable to bear any weight. He is febrile to 101.8 Fahrenheit and also has an elevated white count of 16.9. Additional and symptoms include the development of diarrhea, C. difficile PCR remains pending. His CRP had initially improved from 2 1 9-->42, now trended up again to 199. Patient has a past history of septic arthritis of the right ankle in 2014 which was treated at [facility]. Records from this hospitalization are now available to us. Patient was admitted at the above hospital between February 22 to February 28, 2015 with a septic right ankle when he presented with a red hot swollen ankle associated with foot pain. He had leukocytosis and an elevated CRP at that point. He underwent an I&D, cultures from the joint remained negative, however it appears 1 of 4 blood culture bottles was positive for lacto coccus. Infectious disease was consulted at that time and patient was treated with IV. Ceftriaxone. Per the note it appears crystals were not tested at that time. He was treated with about 2 weeks of IV ceftriaxone and thereafter switched to Augmentin 875 mg twice daily on March 11, 2015. He was also initiated on colchicine for continued pain in the right distal MTP. MRI of his foot had shown diffuse edema and cellulitis of the right foot with localized soft tissue inflammation adjacent to the first MTP and interphalangeal joints. There was also mild enhancement of the distal end of the proximal phalanx of the great toe which was thought to be related to degenerative joint disease. There was no convincing evidence of osteomyelitis. By March 21, 2015 he was still experiencing foot and ankle pain for at which point ID added rifampin to Augmentin. On March 23, 2015 he was readmitted with increasing right ankle and foot pain and swelling and leukocytosis of 14.7. MRI at this time showed fluid collection around the IP and MTP joint of the right first toe which argued against predominant process being a recurrent right ankle infection. Also it was felt unlikely that patient would have multiple small joint septic arthritis. He underwent a trial of IV steroids with the likely explanation of gout versus pseudogout and he also received [id number] indomethacin. With addition of steroids his foot improved significantly however he did develop acute kidney injury during this admission. This was thought to be multifactorial related to antibiotics (vancomycin during this admission) and NSAIDs. He underwent dialysis which improved his kidney function. There was no renal biopsy performed at the time. It appears patient was readmitted at [facility] in May 2015 at this time presenting with a fever of 102.6 and once again with joint swelling. He was in septic shock, however a definite source was never identified. A toe aspirate was performed during this admisssion and was positive for gout crystals. This time there was a history of preceding trauma; patient had slipped on ice 24 hrs prior to admission. Review of Systems General: Reports: 10 or more systems reviewed and unremarkable except in HPI and below Const: Denies: fever(s), chills or body aches Eyes: Denies: change in vision, blurry vision or photophobia ENMT: Reports: hoarseness; Denies: throat pain, enlarged tonsils, odynophagia or nasal congestion Card: Denies: chest pain, palpitations, irregular heart rhythm, edema, swelling of feet/ankles, lightheadedness, pre-syncope, dyspnea on exertion or orthopnea Resp: Denies: dyspnea, productive cough, non-productive cough, wheezing, stridor, pain on inspiration, change in phlegm color, hemoptysis or chest congestion GI: Denies: abdominal pain, nausea, vomiting, hematemesis, coffee ground emesis, dysphagia, heartburn, diarrhea, constipation, GI cramping, change in stool character, hematochezia or melena : Denies: flank pain, dysuria, urinary frequency, urinary urgency, urinary hesitancy or hematuria Musc: Denies: neck pain, back pain, extremity pain, joint swelling, joint warmth or deformity Neuro: Denies: headache(s), numbness in extremities, weakness in extremities, sensory changes, difficulty walking, frequent falls, dizziness, vertigo, behavioral changes, Slurred speech present or seizure-like activity Psych: Denies: anxiety, depression, suicidal ideation or homicidal ideation Endo: Denies: polyuria, polydipsia, tired all the time, cold intolerance or hot flashes [place]/Lymph: Denies: easy bruising or easy bleeding Medications/Allergies Home Medications Medication Instructions Recorded Confirmed Last Taken Type acetaminophen 500 mg tablet 1,000 mg PO Q12H PRN Pain 06/04/22 11/13/22 11/13/22 12:00 History colchicine 0.6 mg tablet 0.6 mg PO DAILY PRN gout #90 tabs 06/12/22 11/13/22 11/07/22 Rx omeprazole 40 mg capsule,delayed 40 mg PO QAM #90 caps 06/12/22 11/13/22 11/13/22 Rx release ondansetron 4 mg disintegrating 4 mg PO Q8H PRN nausea and 09/06/22 11/13/22 11/10/22 Rx tablet vomiting #30 tabs carbidopa 25 mg-levodopa 250 mg 1.5 - 2 tab PO Q6H 10/31/22 11/13/22 11/13/22 12:00 History tablet amlodipine 5 mg tablet 10 mg PO DAILY 30 days #30 tabs 11/05/22 11/13/22 11/12/22 Rx metoprolol tartrate 50 mg tablet 50 mg PO BID #180 tabs 11/05/22 11/13/22 11/12/22 Rx Ceftriaxone Infusion See Rx Instructions .Route .COMPLEX 11/13/22 11/13/22 Unknown History Allergies Allergy/AdvReac Type Severity Reaction Status Date / Time allopurinol Allergy Unknown Unknown Verified 11/13/22 15:12 ketorolac [From Toradol] Allergy Unknown Unknown Verified 11/13/22 15:12 orphenadrine [From Norflex] Allergy Unknown Unknown Verified 11/13/22 15:12 promethazine [From Phenergan] Allergy Unknown Unknown Verified 11/13/22 15:12 tramadol Allergy Unknown Unknown Verified 11/13/22 15:12 hydrocodone Allergy Unknown Verified 11/13/22 15:12 methadone Allergy Unknown Verified 11/13/22 15:12 oxycodone Allergy Unknown Verified 11/13/22 15:12 narcotics Allergy Severe Unknown Uncoded 11/13/22 13:56 Current Medications Generic Name Dose Route Start Last Admin Trade Name Freq PRN Reason Stop Dose Admin Acetaminophen 650 mg 11/13/22 23:33 11/13/22 23:59 Acetaminophen 325 Mg Tablet PO 650 mg Q6H PRN Administration Mild/Mod Pain Or Temp >/= 101 Amlodipine Besylate 10 mg 11/14/22 09:00 11/14/22 08:24 Amlodipine 5 Mg Tablet PO 10 mg DAILY JB Administration Carbidopa/Levodopa 2 each 11/14/22 00:00 11/14/22 05:38 Carbidopa-Levodopa 25-250mg Tablet PO 2 each Q6H JB Administration Enoxaparin Sodium 40 mg 11/13/22 23:45 11/13/22 23:59 Enoxaparin 40 Mg/0.4 Ml Syringe SUBCUT 40 mg Q24H JB Administration Hydromorphone HCl 0.5 mg 11/14/22 06:08 11/14/22 07:27 Hydromorphone 1 Mg/Ml Inj 1 Ml IVP 0.5 mg Q6H PRN Administration SEVERE PAIN Piperacillin Sod/Tazobactam 50 mls @ 12.5 mls/hr 11/14/22 00:00 11/14/22 08:24 Sod 3.375 gm/ Sodium Chloride IV 12.5 mls/hr Q8H JB Administration Vancomycin/PEG/NADA/Lysine/Water 1,250 mg in 250 mls @ 250 mls/hr 11/14/22 07:00 11/14/22 08:42 Vancocin IV Infused Q12H JB Infusion Metoprolol Tartrate 50 mg 11/14/22 09:00 11/14/22 08:24 Metoprolol Tartrate 50 Mg Tablet PO 50 mg BID JB Administration Pantoprazole Sodium 40 mg 11/14/22 09:00 11/14/22 08:[address] 40 Mg Tablet PO 40 mg DAILY JB Administration PFSH Acute PFSH: Medical History (Updated 11/14/22 @ 10:32 by Aileen Carvalho MD) Anxiety and depression CAD (coronary artery disease) Chewing tobacco nicotine dependence Age [age] (currently) Chronic right shoulder pain DDD (degenerative disc disease) Decreased glomerular filtration rate (GFR) Eustachian tube dysfunction Fusion of lumbar spine GERD (gastroesophageal reflux disease) Gout Hearing loss Hypertension Knee pain, right Migraines Osteoarthritis Pain in left ankle Parkinsons disease Polyp of esophagus Polyp of tongue Pre-procedural examination Septic arthritis of left ankle Swelling of left ankle joint TIA (transient ischemic attack) Surgical History (Updated 11/14/22 @ 10:32 by Aileen Carvalho MD) History of back surgery x6 different surgeries on the spine History of total knee arthroplasty Left TKA x2 revision needed due to loosening of hardware, no history of infection S/P cervical spinal fusion Family History Father Stroke Heart attack Brother Hypertension Sister Heart attack Social History Smoking and tobacco status: current every day smoker (chewing) smokeless tobacco Smokeless tobacco user: chewing tobacco Alcohol intake: former Desire information about alcohol rehabilitation?: No Substance/Drug Use: current Substance/Drug use frequency: other Other substance/drug use details: medical marijuana Desire information about substance/drug rehabilitation?: No Caregiver/support person: No Lives independently: Yes Household members: none Marital status: Single Highest education level completed: Some College, No Degree service: No Current occupational status: retired and disabled Do you think of yourself as: Straight/Heterosexual Current gender identity: Male Vitals/I&O/Wt Last Vital Signs Temp 99.8 F H 11/14/22 07:39 Pulse 99 11/14/22 07:39 Resp 16 11/14/22 07:39 BP 110/54 11/14/22 07:39 Pulse Ox 93 11/14/22 07:39 O2 Del Method Room Air 11/14/22 07:39 11/13/22 11/14/22 11/14/22 22:59 06:59 14:59 Intake Total 1540 / 1540 50 / 1590 250 / 250 Output Total 575 / 575 Balance 1540 / 1540 -525 / 1015 250 / 250 Weight last 48 hrs Weight 77.111 kg Weight 77.111 kg Physical Exam Narrative: General: No acute distress, AO x1 HEENT: PERRLA, pupils bilaterally equal and reactive, pallors not present Chest: Normal vesicular breath sounds, no added sounds, equal good air entry bilaterally CVS: S1-S2 regular, no murmurs, no tachycardia, no gallops, no rubs Abdomen: Soft, nontender, no organomegaly, bowel sounds present Neuro: No focal deficits, no facial deformity, AO x3, power 5/5 in all limbs Extremities: Healthy surgical dressing present on the right hip, mild tenderness, soft no erythema. Data 11/14/22 05:45 11/14/22 07:08 Micro: Microbiology 11/13/22 17:40 Blood Culture - Preliminary Blood SPECIMEN COLLECTED 11/13/22 17:46 Blood Culture - Preliminary Blood SPECIMEN COLLECTED 11/01: blood cx: negative 11/04/22 : C diff PCR: not detected [facility] [address] [place] [address] DR. EDEN BLACK, NUCLEAR CARDIOLOGY TECHNOLOGIST NAME: Jude Burden [facility] #: [id number] LOC: [facility] #: [id number] AGE/SX: 57/M ROOM: 256 RE10/31/[address]: Irvin Pathak MD : 1965 BED: 1 DIS: 11/05/22 FAX #: STATUS: DIS IN TLOC: Spec #: [id number] Reid: 11/01/22-999 Status: COMP Req #: [id number] Recd: 11/01/22-[address]: Juan Chirinos DPM Src: Ankle SpDesc: #1 Ordered: Absces Cult&GS Procedure Result Verified Site Gram Stain Final 11/01/22-152 Result NO WHITE BLOOD CELLS RARE GRAM POSITIVE COCCI IN PAIRS Abscess Culture Final 11/07/22-1148 NO GROWTH ON DAY 6 Abscess Culture Preliminary (changed) 11/06/22-1126 NO GROWTH ON DAY 5 Abscess Culture Preliminary (changed) 11/05/22-1255 NO GROWTH ON DAY 4 Abscess Culture Preliminary (changed) 11/04/22-1145 NO GROWTH ON DAY 3 Abscess Culture Preliminary (changed) 11/03/22-1727 NO GROWTH AFTER 2 DAY Abscess Culture Preliminary (changed) 11/03/22-1203 NO GROWTH AFTER 1 DAY Abscess Culture Preliminary (changed) 11/02/22-1829 NO GROWTH AFTER 1 DAY [facility] [address] [place] [address] [id number] [address] EDEN BLACK, NUCLEAR CARDIOLOGY TECHNOLOGIST NAME: Jude Burden [facility] #: [id number] LOC: [facility] #: [id number] AGE/SX: 57/M ROOM: [facility] RE10/31/[address]: Irvin Pathak MD : 1965 BED: 1 DIS: 11/05/22 FAX #: STATUS: DIS IN TLOC: Spec #: [id number] Reid: 11/01/22-999 Status: COMP Req #: [id number] Recd: 11/01/22-[address]: Juan Chirinos DPM Src: Ankle SpDesc: #2 Ordered: Anaer Procedure Result Verified Site Anaerobic Culture Final 11/08/22-1706 NO ANAEROBES ISOLATED ON DAY 7 Anaerobic Culture Preliminary (changed) 11/07/22-1500 NO ANAEROBES ISOLATED ON DAY 6 Anaerobic Culture Preliminary (changed) 11/06/22-1654 NO ANAEROBES ISOLATED ON DAY 5 Anaerobic Culture Preliminary (changed) 11/05/22-1508 NO ANAEROBES ISOLATED ON DAY 4 Anaerobic Culture Preliminary (changed) 11/04/22-1541 NO ANAEROBES ISOLATED ON DAY 3 Anaerobic Culture Preliminary (changed) 11/03/22-1835 NO ANAEROBES ISOLATED ON DAY 2 Anaerobic Culture Preliminary (changed) 11/02/22-1932 NO ANAEROBES ISOLATED ON DAY 1 Other data: A&P Assessment and plan (1) Septic arthritis of left ankle: Recent events as above. Patient with a recent diagnosis of septic arthritis of left ankle, diagnosed based on a synovial fluid aspirate with WBC of 60,000 predominant PMNLs. Gram stain had shown gram-positive cocci, eventually there was no growth on cultures.. Crystals were negative. 16S DNA sequencing is pending from synovial fluid, Blood cx were negative on last admission, pending currently. MRSA screen was negative. Patient was receiving presumptive treatment with ceftriaxone 2 g IV daily for cx negative septic arthritis while pending DNA sequencing results. On previous admission his symptoms were improving by the time of discharge, he had been receiving iv abx and also colchicine during that admission. He returns now with worsened swelling involving his B/L ankles, inability to bear weight, fever and leukocytosis with worsening CRP. While persisting infection on a presumptive regimen remains a possibility, his prior history with similar presentation in 2014, cx remaining negative, and eventual recovery of MSU crystals with improvement on iv steroids, polyarticular involvement make septic arthritis only a possible diagnosis at this point in time. Agree with obtaining repeat surgical cultures Recommend to additionally obtain MRI of bilateral ankles. If polyarticular involvement is seen, and cultures continue to remain negative, an alternate diagnosis to septic arthritis would need to be considered. Check TAYLOR panel. It does not appear patient has been evaluated by rheumatology in the past. Inflammatory arthropathy remains on the differential. Continue vancomycin and Zosyn while pending results of the above testing. No contraindication from an ID standpoint for a trial of colchicine and steroids. Patient hesitant to try NSAIDs given past h/o renal failure We will follow-up with results of MRI (2) Status post surgery: (3) Gout: Coding Level of Care Code Acute Code for [facility] Diagnoses Septic arthritis of left ankle M00.9 Status post surgery Z98.890 Gout M10.9
[2022-11-14] MEDS: HYDROmorphone 1 mg/mL INJ 1 mL IVP ×3 (11:08→20:58)
[2022-11-14] MEDS: acetaminophen 325 mg Tablet 650 MG PO (13:04)
[2022-11-14 13:09] LABS: Erythrocyte Sedimentation Rate 96 mm/hr (0-10)
--- NOTE | 2022-11-14 13:28 | P.PN_ITS ---
Subjective Subjective: No acute events overnight denies any nausea, vomiting, headache. Complaining of pain in his ankles. No further diarrhea. Solid bowel movement yesterday. Tmax since admission 101.8 Fahrenheit. Vitals/I&O/Wt Last Vital Signs Temp 100.1 F H 11/14/22 12:44 Pulse 99 11/14/22 07:39 Resp 20 H 11/14/22 11:08 BP 110/54 11/14/22 07:39 Pulse Ox 93 11/14/22 07:39 O2 Del Method Room Air 11/14/22 07:39 11/13/22 11/14/22 11/14/22 22:59 06:59 14:59 Intake Total 1540 / 1540 50 / 1590 300 / 300 Output Total 575 / 575 Balance 1540 / 1540 -525 / 1015 300 / 300 Weight last 48 hrs Weight 77.111 kg Weight 77.111 kg Physical Exam Narrative: EXAM NARRATIVE: General: No acute distress, AO x3 HEENT: PERRLA, pupils bilaterally equal and reactive Chest: equal good air entry bilaterally CVS: S1-S2 regular, no murmurs, no tachycardia, no gallops, no rubs Abdomen: Soft, nontender, no organomegaly, bowel sounds present Neuro: No focal deficits, no facial deformity, AO x3, power 5/5 in all limbs Data 11/14/22 05:45 11/14/22 07:08 Micro: Microbiology 11/13/22 17:40 Blood Culture - Preliminary Blood SPECIMEN COLLECTED 11/13/22 17:46 Blood Culture - Preliminary Blood SPECIMEN COLLECTED A&P Assessment and plan (1) Septic arthritis of left ankle: Recently diagnosed with cx negative septic arthritis for which patient is on treatment with Ceftriaxone 2 g iv daily. [employer] testing from last time and reported today came back negative. Appreciate recommendations from Dr. Carrasquillo and Dr. Carvalho. Concerns for polya rticular arthritis. Plan for MRI of bilateral ankles. Patient does complain of swelling in multiple joints right now including his wrist joints. Chlamydia and gonorrhea negative from last time. Case discussed in detail with Dr. Cruz from rheumatology. Plan to send ANCA, CCP, HLA-B27, rheumatoid factor. Will check HIV and RPR. Plan to start on high-dose steroids with dexamethasone 6 mg IV twice daily today. Possible planned to return to OR with Dr. Chirinos tomorrow for joint wash and study for crystals. For now continue empiric treatment with Zosyn and vancomycin with close renal monitoring Blood cx, ESR and CRP done in ED will continue. check c diff PCR given diarrhea (2) Parkinsons disease: continue home dose of carbidopa-levodopa (3) Hypertension: continue amlodipine 10mg daily and metoprolol 50 BID. Goal blood pressure less than 140/90 mmHg. Continue to monitor and uptitrate accordingly. (4) Hyperkalemia: Resolved. Most likely secondary to hemolysis. Plan Full code. Cardiac diet, n.p.o. after midnight. Heparin 5000 every 12 hourly for DVT prophylaxis. Protonix for PUD prophylaxis Attestations Medical Necessity Statement*: Requires further hospitalization for management of recurrent chronic ankle joint painful swelling with concerns for septic arthritis versus polyarticular arthritis Diagnoses Septic arthritis of left ankle M00.9 Parkinsons disease G20 Hypertension I10 Hyperkalemia E87.5
--- NOTE | 2022-11-14 13:48 | PM.ACPR ---
Procedure/Consent Consent: Consent for Procedure: Consent obtained from patient Additional Consent Information: Both written and verbal consent were obtained for left ankle arthrocentesis CPT 94486 Procedure Narrative: Attention was directed to the left ankle. The anteromedial portion of the left ankle was prepped with alcohol before being anesthetized with 6 cc of 1% lidocaine plain. After anesthesia was achieved, the anterior medial portion of the ankle was prepped with Betadine swab. After prep with Betadine, an 18-gauge needle was inserted into the anteromedial portion of the ankle joint. After insertion of the needle the synovial fluid was withdrawn. It was noted to be yellow translucent in coloration with intermixed blood. 1 cc of fluid was sent to pathology for crystal analysis. Cultures were taken of the fluid as well and sent to micro for ID and sensitivity. The site was then bandaged with 2 x 2 gauze and tape. The patient tolerated the procedure well and without complications.
[2022-11-14] MEDS: dexamethasone 10 mg/mL INJ 6 MG IVP (14:03)
[2022-11-14 15:11] LABS: Rapid Plasma Reagin Syphilis Nonreactive (Nonreactive)
[2022-11-14 15:31] LABS: HIV 1 & 2 Antibody Non-Reactive (Non-Reactiv); HIV 1 & 2 Antigen Non-Reactive (Non-Reactiv)
[2022-11-14] MEDS: enoxaparin 40 mg/0.4 mL Syringe SUBCUT (23:15)
[2022-11-15] VITALS (15 sets, daily range): BP systolic 89–117; BP diastolic 62–72; PULSE 69–87; RESP 16–18; TEMP 36.4–36.9; O2SAT 91–96
[2022-11-15] MEDS: dexamethasone 10 mg/mL INJ 6 MG IVP ×2 (01:13→13:20)
[2022-11-15] MEDS: HYDROmorphone 1 mg/mL INJ 1 mL IVP ×5 (01:13→22:25)
[2022-11-15] MEDS: carbidopa-levodopa 25-250mg Tablet 2 EACH PO ×4 (05:55→23:38)
[2022-11-15 05:56] LABS: Basophils % 0.2 %; Hematocrit 36.3 % (42.0-52.0); Hemoglobin 11.6 g/dL (11.7-16.6); Lymphocytes # 1.1 10^3/uL (0.8-4.8); Lymphocytes % 5.8 %; Mean Corpuscular Hemoglobin 28.1 pg (28.0-34.0); Mean Corpuscular Volume 87.9 fl (80-94); Mean Platelet Volume 9.6 fL (7.4-10.4); Monocytes # 0.4 10^3/uL (0.2-0.9); Monocytes % 2.2 %; Neutrophils # 17.81 10^3/uL (1.8-7.7); Nucleated Red Blood Cells % 0 %; Platelet Count 297 10^3/cmm (130-400); Red Blood Count 4.13 10^6/uL (4.1-5.3); White Blood Count 19.6 10^3/uL (4.0-10.0)
[2022-11-15 06:19] LABS: Vancomycin Trough 10.2 ug/mL (10-15)
[2022-11-15] MEDS: vancomycin 1,250 MG/250 ML PIGGYBACK 250 MG IV (06:27)
[2022-11-15] MEDS: piperacillin-tazobactam 3.375 GM in sodium chloride 0.9% (plus) 50 ML IV (08:02)
[2022-11-15] MEDS: pantoprazole DR 40 mg Tablet PO ×2 (08:03→17:16)
[2022-11-15] MEDS: metoprolol tartrate 50 mg Tablet PO ×2 (08:03→17:16)
[2022-11-15] MEDS: amlodipine 5 mg Tablet 10 MG PO (08:04)
[2022-11-15 08:19] LABS: Alanine Aminotransferase < 5 U/L (0-41); Alkaline Phosphatase 84 U/L (40-130); Anion Gap 13.8 (5-19); Aspartate Amino Transferase 12 U/L (0-40); Blood Urea Nitrogen 14 mg/dL (6-20); Carbon Dioxide 27 mmol/L (22-29); Chloride 98 mmol/L (98-107); Globulin 4.1 g/dL (1.3-4.6); Glomerular Filtration Rate 115.8 mL/min (90-130); Glucose 179 mg/dL (65-115); Osmolality Calculated 285 mOsm/kg (285-295); Potassium 3.8 mmol/L (3.5-5.1); Sodium 135 mmol/L (136-145); Total Bilirubin 0.2 mg/dL (0.15-1.2); Total Protein 7.1 g/dL (6.6-8.7)
[2022-11-15 11:40] LABS: Crystals, Fluid SENT TO PATH
[2022-11-15 11:54] LABS: COMPLEMENT COMPONENT C3C 178 mg/dL (82-185); COMPLEMENT COMPONENT C4C 18 mg/dL (15-53)
--- NOTE | 2022-11-15 12:02 | PM.PN ---
Subjective Subjective: Patient seen and evaluated bedside this morning. Patient states overall he is doing much improved in comparison to yesterday. States that his pain is well controlled. Does not feel like he is freezing anymore. No other complaints at bedside this morning. Vitals/I&O/Wt Last Vital Signs Temp 97.5 F L 11/15/22 08:00 Pulse 81 11/15/22 08:00 Resp 18 11/15/22 08:00 BP 117/70 11/15/22 08:00 Pulse Ox 96 11/15/22 08:00 O2 Del Method Room Air 11/15/22 08:00 11/14/22 11/15/22 11/15/22 22:59 06:59 14:59 Intake Total 1380 / 1680 50 / 1730 610 / 610 Output Total 325 / 325 450 / 775 350 / 350 Balance 1055 / 1355 -400 / 955 260 / 260 Weight last 48 hrs Weight 170 lb Weight 170 lb Physical Exam Narrative: BELOW IS A FOCUSED LOWER EXTREMITY EXAM GENERAL: A&O x 3 VASCULAR: DP/PT pulses palpable 2/4 with CFT intact, <3seconds to distal digits. Marked edema to left ankle in comparison to contralateral limb DERMATOLOGICAL: Left ankle is warm to touch in comparison to contralateral ankle. No open wounds appreciated MUSCULOSKELETAL: Extreme tenderness with palpation of left ankle. Unable to range the left ankle joint secondary to pain. Left ankle feels full to touch and engorged. No calf tenderness. Extreme tenderness with palpation of right first metatarsophalangeal joint NEUROLOGICAL: Neurological sensation to the affected foot and ankle is present through L4-S1 dermatomes with no hyper/hypoesthesias, negative Tinel or Valleix's sign Data 11/15/22 05:45 11/15/22 07:53 Micro: Microbiology 11/13/22 17:46 Blood Culture - Preliminary Blood NEGATIVE TO DATE 11/13/22 17:40 Blood Culture - Preliminary Blood NEGATIVE TO DATE 11/14/22 12:50 Gram Stain - Final Ankle - #1 A&P Assessment and plan (1) Swelling of left ankle joint: (2) Pain in left ankle: (3) Pain of right foot: Plan LABS AND CLINICAL INFO: WBC 20.2--> 19.6 Temp Tmax 97.5 VSS CRP 199 Blood cultures: NGTD Left ankle synovial culture and Gram stain: No microorganisms seen PLAN: -Okay for diet -Patient is improving with steroid therapy. Based on Gram stain from left ankle synovial fluid we will hold off on ankle arthroscopy with washout at this time. Continue to monitor culture results -Continue steroid therapy -We will discuss further with hospitalist and infectious disease -Monitor cultures -Trend labs -Nonweightbearing to left lower extremity -Discharge plan: To be determined -Podiatry will continue to round on patient daily and provide recommendations. Attestations Medical Necessity Statement*: See above Coding Level of Care Code Acute Code for [facility] Diagnoses Swelling of left ankle joint M25.472 Pain in left ankle M25.572 Pain of right foot M79.671
[2022-11-15 12:29] LABS: Cyclic Citrullinated Peptide <16 UNITS
[2022-11-15 12:44] LABS: CENTROMERE B ANTIBODY <1.0 NEG AI (<1.0 NEG); JO-1 ANTIBODY <1.0 NEG AI (<1.0 NEG); RNP ANTIBODY <1.0 NEG AI (<1.0 NEG); SCL-70 ANTIBODY <1.0 NEG AI (<1.0 NEG); SJOGREN'S ANTIBODY (SS-A) <1.0 NEG AI (<1.0 NEG); SM ANTIBODY <1.0 NEG AI (<1.0 NEG); SS-B <1.0 NEG AI (<1.0 NEG)
--- NOTE | 2022-11-15 15:00 | P.PN_ITS ---
Subjective Subjective: Events overnight. Patient's fever has subsided. Remains hemodynamically stable and afebrile. Continues to have swelling of multiple joints but states feeling better today. Less pain today. Denies any nausea, headache. Underwent joint washout. Vitals/I&O/Wt Last Vital Signs Temp 97.8 F 11/15/22 12:00 Pulse 72 11/15/22 12:00 Resp 16 11/15/22 12:48 BP 100/67 11/15/22 12:00 Pulse Ox 94 11/15/22 12:00 O2 Del Method Room Air 11/15/22 12:00 11/15/22 11/15/22 11/15/22 06:59 14:59 22:59 Intake Total 50 / 1730 1140 / 1140 Output Total 450 / 775 350 / 350 Balance -400 / 955 790 / 790 Weight last 48 hrs Weight 77.111 kg Weight 77.111 kg Physical Exam Narrative: EXAM NARRATIVE: General: No acute distress, AO x3 HEENT: PERRLA, pupils bilaterally equal and reactive Chest: equal good air entry bilaterally CVS: S1-S2 regular, no murmurs, no tachycardia, no gallops, no rubs Abdomen: Soft, nontender, no organomegaly, bowel sounds present Neuro: No focal deficits, no facial deformity, AO x3, power 5/5 in all limbs Data 11/15/22 05:45 11/15/22 07:53 Micro: Microbiology 11/13/22 17:46 Blood Culture - Preliminary Blood NEGATIVE TO DATE 11/13/22 17:40 Blood Culture - Preliminary Blood NEGATIVE TO DATE 11/14/22 12:50 Gram Stain - Final Ankle - #1 A&P Assessment and plan (1) Septic arthritis of left ankle: Recently diagnosed with cx negative septic arthritis for which patient is on treatment with Ceftriaxone 2 g iv daily. BioFire testing from last time and reported today came back negative. Appreciate recommendations from Dr. Chirinos and Dr. Carvalho. Concerns for polyarticular arthritis. Appreciate ankle MRI results. Patient does complain of swelling in multiple joints right now including his wrist joints. Chlamydia and gonorrhea negative from last time. Case discussed in detail with Dr. Cruz from rheumatology. Plan to send ANCA, CCP, HLA-B27, rheumatoid factor. Currently, RPR negative. Plan to start on high-dose steroids with dexamethasone 6 mg IV twice daily today. Monitor blood sugars. Recent A1c 5.9. Follow-up joint fluid crystal results. Discussed in detail with pathology. Follow-up culture results. Appreciate ESR, CRP. No further diarrhea. Hold off on vancomycin and Zosyn for now and continue to monitor. If patient becomes hemodynamically unstable or in severe sepsis we will plan to restart antibiotics. (2) Parkinsons disease: continue home dose of carbidopa-levodopa (3) Hypertension: continue amlodipine 10mg daily and metoprolol 50 BID. Goal blood pressure less than 140/90 mmHg. Continue to monitor and uptitrate accordingly. (4) Hyperkalemia: Resolved. Most likely secondary to hemolysis. Plan Full code. Cardiac diet, n.p.o. after midnight. Heparin 5000 every 12 hourly for DVT prophylaxis. Protonix for PUD prophylaxis Attestations Medical Necessity Statement*: Requires further hospitalization for management of polyarticular arthritis while septic joint is ruled out Diagnoses Septic arthritis of left ankle M00.9 Parkinsons disease G20 Hypertension I10 Hyperkalemia E87.5
[2022-11-15] MEDS: enoxaparin 40 mg/0.4 mL Syringe SUBCUT (23:38)
[2022-11-16] VITALS (14 sets, daily range): BP systolic 102–125; BP diastolic 64–76; PULSE 76–92; RESP 16–18; TEMP 36.3–36.4; O2SAT 90–97
[2022-11-16] MEDS: dexamethasone 10 mg/mL INJ 6 MG IVP ×2 (01:41→14:32)
[2022-11-16] MEDS: HYDROmorphone 1 mg/mL INJ 1 mL IVP ×2 (03:27→13:22)
[2022-11-16 04:59] LABS: Basophils % 0.1 %; Hematocrit 39.4 % (42.0-52.0); Hemoglobin 12.6 g/dL (11.7-16.6); Lymphocytes # 1.4 10^3/uL (0.8-4.8); Lymphocytes % 6.7 %; Mean Corpuscular Hemoglobin 28.4 pg (28.0-34.0); Mean Corpuscular Volume 88.7 fl (80-94); Mean Platelet Volume 9.4 fL (7.4-10.4); Monocytes # 0.4 10^3/uL (0.2-0.9); Neutrophils % 89.9 %; Nucleated Red Blood Cells % 0 %; Platelet Count 381 10^3/cmm (130-400); Red Blood Count 4.44 10^6/uL (4.1-5.3); White Blood Count 20.2 10^3/uL (4.0-10.0)
[2022-11-16 05:16] LABS: Alanine Aminotransferase < 5 U/L (0-41); Alkaline Phosphatase 79 U/L (40-130); Anion Gap 14.7 (5-19); Aspartate Amino Transferase 13 U/L (0-40); Blood Urea Nitrogen 14 mg/dL (6-20); Calcium 9.2 mg/dL (8.5-10.5); Carbon Dioxide 28 mmol/L (22-29); Chloride 99 mmol/L (98-107); Globulin 3.8 g/dL (1.3-4.6); Glomerular Filtration Rate 138.4 mL/min (90-130); Glucose 150 mg/dL (65-115); Osmolality Calculated 289 mOsm/kg (285-295); Potassium 3.7 mmol/L (3.5-5.1); Sodium 138 mmol/L (136-145); Total Bilirubin 0.2 mg/dL (0.15-1.2); Total Protein 6.8 g/dL (6.6-8.7)
[2022-11-16] MEDS: morphine 4 mg/mL SDV 1 mL IVP ×3 (05:49→22:01)
[2022-11-16] MEDS: carbidopa-levodopa 25-250mg Tablet 2 EACH PO ×3 (06:00→18:22)
--- NOTE | 2022-11-16 07:38 | PM.PN ---
Subjective Subjective: Infectious disease progress note. Patient 15 his DNA sequencing results from synovial fluid aspirate from previous admission returned negative. He was started on an empiric trial of dexamethasone on 11/14/2022 His fevers have completely resolved since being started on steroids. antibiotics were discontinued after discussion with hospitalist yesterday Synovial fluid aspirate taken on 11/14 with no organisms on Gram stain, crystal analysis pending. Blood cultures remain negative to date Since starting IV steroids, patient's swelling over bilateral feet is improving. His joints are less erythematous, less swollen however continues to have pain. His wrists and small hand joints are starting to feel better Medications: Reviewed: Yes Vitals/I&O/Wt Last Vital Signs Temp 97.4 F L 11/16/22 04:00 Pulse 92 11/16/22 06:00 Resp 16 11/16/22 05:49 BP 125/73 11/16/22 04:00 Pulse Ox 97 11/16/22 04:00 O2 Del Method Room Air 11/16/22 04:00 11/15/22 11/16/22 11/16/22 22:59 06:59 14:59 Intake Total 240 / 1380 Balance 240 / 1030 Physical Exam Narrative: General: No acute distress, AO x3 HEENT: PERRLA, pupils bilaterally equal and reactive, pallors not present Chest: Normal vesicular breath sounds, no added sounds, equal good air entry bilaterally CVS: S1-S2 regular, no murmurs, no tachycardia, no gallops, no rubs Abdomen: Soft, nontender, no organomegaly, bowel sounds present Neuro: No focal deficits, no facial deformity, AO x3, power 5/5 in all limbs Extremities: Improving swelling over bilateral first MTP joints, improving swelling over bilateral ankles, improved tenderness over bilateral wrists. Data 11/16/22 04:40 11/16/22 04:40 Micro: Microbiology 11/14/22 12:50 Gram Stain - Final, no organisms seen Ankle - #1 Body Fluid Culture - Preliminary, no growth thus far 10/30/22: Blood c x: nagtive 11/13/22: Blood cx : negative Synovial fluid aspirate 10/31 : 10/31/22 07:00 Gram Stain - Final ?Ankle - #1 Abscess Culture - no growth to date GPC in pairs and chains ?11/01/22 10:00 Gram Stain - Final ?Ankle - #1 ? ?10/30/22 22:30 Chlamydia trachomatis (EARLENE) - negative ?Urine Random Neisseria gonorrhoeae (EARLENE) - negative ?10/31/22 16:15 MRSA Culture - negative ?Nose ? 10/31/22: Syovial fluid aspirate biofire joint infection panel: no organisms detected A&P Assessment and plan (1) Septic arthritis of left ankle: Septic arthritis appearing to be less likely now in view of new data made available and similar presentation in 2015. Patient recently received a diagnosis of septic arthritis of left ankle, diagnosed based on a synovial fluid aspirate with WBC of 60,000 predominant PMNLs. Gram stain had shown gram-positive cocci, eventually there was no growth on cultures.. Crystals were negative. Multiplex PCR from synovial fluid has now also returned negative. Blood cultures remain negative to date. Patient was receiving presumptive treatment with ceftriaxone 2 g IV daily for cx negative septic arthritis while pending DNA sequencing results. Now that all cultures and DNA sequencing results are negative, antibiotics were discontinued on November 15, 2022. Chief alternate differentials at this time include inflammatory polyarthritis versus crystal arthropathy. Joint aspirate taken again on November 14, 2022 from left ankle, currently pending crystal analysis. Gram stain remains negative. Culture negative to date. MRI of bilateral ankles has shown diffuse soft tissue edema with small joint effusions no abnormal bone marrow signal or evidence of osteomyelitis. very small joint effusion was seen about the left ankle. There is a split tear involving the peroneal brevis with tenosynovitis along the peroneal tendon sheath. additionally patient complained of pain in his bilateral wrists and small joints of the hand on this admission. Given overall negative infectious work-up and polyarticular involvement which goes against the diagnosis of septic arthritis, Plan to monitor off antibiotics for an additional 24 hours. If patient remains afebrile and clinically improving, will remove PICC line and discontinue antibiotics (2) Inflammatory polyarthritis: Clinical suspicion for inflammatory polyarthritis as noted above. TAYLOR panel, uric acid, ANCA, RA factor, CCP, HLA-B27 testing has been obtained, results are pending. Recommend outpatient referral to rheumatology for follow-up Currently receiving dexamethasone 6 mg IV 12 hours which appears to be improving his symptoms.. He is afebrile since starting steroids and joints appear to be less swollen and erythematous. (3) Status post surgery: (4) Gout: Has a prior history of gout Attestations Medical Necessity Statement*: Per admitting, monitor additional 24 hours of antibiotics to ensure clinical stability prior to discharge Coding Level of Care Code Acute Code for [facility] Fwd Diagnoses Septic arthritis of left ankle M00.9 Inflammatory polyarthritis M06.4 Status post surgery Z98.890 Gout M10.9
[2022-11-16] MEDS: pantoprazole DR 40 mg Tablet PO ×2 (09:48→18:22)
[2022-11-16] MEDS: metoprolol tartrate 50 mg Tablet PO (09:48)
[2022-11-16] MEDS: amlodipine 5 mg Tablet 10 MG PO (09:48)
[2022-11-16 11:44] LABS: THYROID PEROXIDASE ANTIBODIES 15 IU/mL (<9)
--- NOTE | 2022-11-16 13:07 | PM.PN ---
Subjective Subjective: Patient seen and evaluated bedside this morning. Patient states overall he is doing much improved in comparison to yesterday. States that his pain is well controlled. Does not feel like he is freezing anymore. No other complaints at bedside this morning. Vitals/I&O/Wt Last Vital Signs Temp 97.5 F L 11/16/22 08:00 Pulse 76 11/16/22 11:55 Resp 16 11/16/22 11:55 BP 109/67 11/16/22 11:55 Pulse Ox 94 11/16/22 11:55 O2 Del Method Room Air 11/16/22 11:55 11/15/22 11/16/22 11/16/22 22:59 06:59 14:59 Intake Total 240 / 1380 240 / 240 Balance 240 / 1030 240 / 240 Physical Exam Narrative: BELOW IS A FOCUSED LOWER EXTREMITY EXAM GENERAL: A&O x 3 VASCULAR: DP/PT pulses palpable 2/4 with CFT intact, <3seconds to distal digits. Marked edema to left ankle in comparison to contralateral limb DERMATOLOGICAL: Left ankle is warm to touch in comparison to contralateral ankle. No open wounds appreciated MUSCULOSKELETAL:Mild tenderness with palpation of left ankle. Left ankle joint is able to be put through passive range of motion without debilitating pain. Mild tenderness with palpation of right first metatarsophalangeal joint NEUROLOGICAL: Neurological sensation to the affected foot and ankle is present through L4-S1 dermatomes with no hyper/hypoesthesias, negative Tinel or Valleix's sign Data 11/16/22 04:40 11/16/22 04:40 Micro: Microbiology 11/14/22 12:50 Gram Stain - Final Ankle - #1 Body Fluid Culture - Preliminary A&P Assessment and plan (1) Swelling of left ankle joint: (2) Pain in left ankle: (3) Pain of right foot: Plan LABS AND CLINICAL INFO: WBC 20.2 Temp Tmax 97.5 VSS CRP 199 Blood cultures: NGTD Left ankle synovial culture and Gram stain: No microorganisms seen PLAN: -Okay for diet -Patient is improving with steroid therapy. -Based on left ankle culture results we can rule out septic ankle joint. I believe this is more immune mediated given the polyarticular presentation. We will continue work-up. No plan for surgical intervention from podiatry during this admission -Continue steroid therapy -If patient continues to improve, PICC line will be discontinued -Monitor cultures. Crystal analysis of left ankle joint aspirate still pending from pathology -Trend labs -Nonweightbearing to left lower extremity -Discharge plan: To be determined -Podiatry will continue to round on patient daily and provide recommendations. Attestations Medical Necessity Statement*: See above Coding Level of Care Code Acute Code for [facility] Fwd Diagnoses Swelling of left ankle joint M25.472 Pain in left ankle M25.572 Pain of right foot M79.671
--- NOTE | 2022-11-16 14:31 | PM.PN ---
Subjective Subjective: No acute events overnight. Patient has remained hemodynamically stable and afebrile. Last fever on 531 afternoon. Patient states he is feeling slightly better. Joint seems to be less swollen. Denies any nausea, vomiting, headache. Concerned about the pain medications he is getting. Complaining of pain in the toes on flexion but range of motion seems to be improving. Medications: Reviewed: Yes Vitals/I&O/Wt Last Vital Signs Temp 97.5 F L 11/16/22 08:00 Pulse 76 11/16/22 11:55 Resp 18 11/16/22 13:22 BP 109/67 11/16/22 11:55 Pulse Ox 94 11/16/22 11:55 O2 Del Method Room Air 11/16/22 11:55 11/15/22 11/16/22 11/16/22 22:59 06:59 14:59 Intake Total 240 / 1380 480 / 480 Balance 240 / 1030 480 / 480 Physical Exam Narrative: General: No acute distress, AO x3 HEENT: PERRLA, pupils bilaterally equal and reactive Chest: Normal vesicular breath sounds, no added sounds, equal good air entry bilaterally CVS: S1-S2 regular, no murmurs, no tachycardia, no gallops, no rubs Abdomen: Soft, nontender, no organomegaly, bowel sounds present Neuro: No focal deficits, no facial deformity, AO x3, power 5/5 in all limbs Extremities: Tenderness in the left ankle joint, improving swelling left wrist joint, bilateral great toe DIP and PIP swelling is improving Data 11/16/22 04:40 11/16/22 04:40 Micro: Microbiology 11/14/22 12:50 Gram Stain - Final Ankle - #1 Body Fluid Culture - Preliminary A&P Assessment and plan (1) Septic arthritis of left ankle: Recently diagnosed with cx negative septic arthritis for which patient is on treatment with Ceftriaxone 2 g iv daily. BioFire testing from last time and reported today came back negative. Appreciate recommendations from Dr. Chirinos and Dr. Carvalho. Concerns for polyarticular arthritis. Appreciate ankle MRI results. Patient does complain of swelling in multiple joints right now including his wrist joints. Chlamydia and gonorrhea negative from last time. Case discussed in detail with Dr. Cruz from rheumatology. CCP, rheumatoid factor appreciated. HLA-B27 pending. Negative RPR and HIV. Continue her high-dose steroids with dexamethasone 6 mg IV twice daily today. Plan to continue high-dose IV antibiotics for next Saturday while monitor for fevers. Monitor blood sugars. Recent A1c 5.9. Follow-up joint fluid crystal results. Discussed in detail with pathology. Continue to monitor off antibiotics. If remains hemodynamically stable, afebrile for next 24 hours can plan to discharge on oral steroid taper. (2) Parkinsons disease: continue home dose of carbidopa-levodopa (3) Hypertension: continue amlodipine 10mg daily and metoprolol 50 BID. Goal blood pressure less than 140/90 mmHg. Continue to monitor and uptitrate accordingly. (4) Hyperkalemia: Resolved. Most likely secondary to hemolysis. Plan Full code. Cardiac diet, n.p.o. after midnight. Heparin 5000 every 12 hourly for DVT prophylaxis. Protonix for PUD prophylaxis Attestations Medical Necessity Statement*: Requires further hospitalization for polyarticular arthritis, swelling while rheumatological disorder and septic arthritis is ruled out Diagnoses Septic arthritis of left ankle M00.9 Parkinsons disease G20 Hypertension I10 Hyperkalemia E87.5
[2022-11-16 15:04] LABS: COMPLEMENT, TOTAL (CH50) >60 U/mL (31-60)
[2022-11-16 15:45] LABS: ANA PATTERN Nuclear, Homogeneous; ANA SCREEN, IFA POSITIVE (NEGATIVE)
[2022-11-16 23:40] LABS: HLA-B27 NEGATIVE (NEGATIVE)
[2022-11-17] VITALS: BP 114/75; PULSE 83; RESP 18; TEMP 36.4; O2SAT 91
[2022-11-17] MEDS: carbidopa-levodopa 25-250mg Tablet 2 EACH PO ×2 (00:15→05:20)
[2022-11-17] MEDS: enoxaparin 40 mg/0.4 mL Syringe SUBCUT (00:16)
[2022-11-17] MEDS: dexamethasone 10 mg/mL INJ 6 MG IVP (01:59)
[2022-11-17 04:00] VITALS: BP 122/74; PULSE 81; RESP 19; TEMP 37; O2SAT 94
[2022-11-17 04:05] VITALS: RESP 18
[2022-11-17] MEDS: morphine 4 mg/mL SDV 1 mL IVP (04:05)
[2022-11-17 08:00] VITALS: BP 111/69; PULSE 73; RESP 16; TEMP 36.6; O2SAT 95
[2022-11-17 08:24] LABS: DNA AB (DS) CRITHIDIA,IFA NEGATIVE (NEGATIVE)
--- NOTE | 2022-11-17 09:14 | PM.DCS ---
Discharge Providers Date of Admission: 11/13/22 20:31 Date of Discharge: November 17, 2022 Attending Provider at Admission: Aileen Carvalho MD Attending Provider at Discharge: Palmer Cifuentes MD Consults: Podiatry: Dr. Salvador ID: Dr. Carvalho Primary Care Provider: Wali Moon MD Diagnoses at Discharge Discharge Diagnosis (1) Septic arthritis of left ankle: Status: Acute (2) Parkinsons disease: Status: Acute (3) Hypertension: Status: Acute (4) Hyperkalemia: Status: Acute (5) Inflammatory polyarthritis: Status: Acute (6) TAYLOR positive: Status: Acute (7) Bilateral swelling of feet and ankles: Status: Acute (8) Swelling of joint of both wrists: Status: Acute Reason for Visit Reason for Visit: leg infection sent by DR salvador Hospital Course Hospital Course History as per HPI: Jude Burden is a 57 year old male who was recently admitted to the hospital for left ankle septic arthritis.? During his last admission left ankle arthrocentesis was obtained which showed rare gram-positive cocci in pairs on the Gram stain however, no cultures resulted between the left ankle arthrocentesis and the left ankle arthroscopy with washout.? After the ankle arthroscopy and washout (DOS: 11/01/2022) the patient stabilized and was discharged from the hospital with PICC line and IV antibiotics.? Empiric antibiotic choice of Rocephin daily was made for the patient.? However, since discharge the patient states that he has become increasingly more sick with fever, chills, nausea, vomiting, diarrhea.? He states that this began last (11/08/2022) and continued to worsen over the weekend.? Patient went for his IV infusions yesterday morning (11/13/2022) and there was concern for his health.? CBC, ESR, CRP were ordered which showed leukocytosis with an elevated CRP of 199.? He was seen in podiatry office where again, he was noted to be ill in appearance with exquisite tenderness to the left ankle and now to the right big toe joint hence was sent down to the ER for further work-up and possible admission. Patient was admitted to the hospital for possible sepsis. Blood cultures were drawn. He did have episode of diarrhea 2 days prior to admission though he had taken Imodium and did not have any bowel movements during hospitalization so stool C. difficile could not be checked. Both podiatry and ID were consulted. His [employer] DNA sequencing results from previous admission?came back negative for any bacterial infection. His old documents from previous septic arthritis were reviewed. Patient was found to have involvement of multiple joints including bilateral ankle, bilateral great toes, bilateral wrists. He again underwent left ankle arthrocentesis with podiatry on 11/14. All the cultures including fluid cultures, blood cultures remain negative. Patient was monitored in the hospital for 36 hours off antibiotics. Care was discussed in detail with outpatient peer educator with concerns for polyarticular arthritis. Multiple blood work including TAYLOR, ANCA was sent out. Rheumatoid factor came back slightly elevated with TAYLOR being positive. Patient improved, with resolution and improvement in swelling of joints, resolution of fever for more than 36 hours after starting on high-dose steroids. Given concerns for polyarticular immunological arthritis, no concern for septic arthritis PICC line was removed and antibiotics were discontinued. He has been discharged in hemodynamically stable condition on high-dose steroids with slow taper as described below with advised to follow-up with rheumatology as an outpatient and with podiatry as an outpatient within next 2 weeks. Physical Exam Narrative: General: No acute distress, AO x3 HEENT: PERRLA, pupils bilaterally equal and reactive Chest: Normal vesicular breath sounds, no added sounds, equal good air entry bilaterally CVS: S1-S2 regular, no murmurs, no tachycardia, no gallops, no rubs Abdomen: Soft, nontender, no organomegaly, bowel sounds present Neuro: No focal deficits, no facial deformity, AO x3, power 5/5 in all limbs Extremities: Tenderness in the left ankle joint, improving swelling left wrist joint, bilateral great toe DIP and PIP swelling is improving Discharge Data Studies Completed and Pending Completed Studies During Hospitalization Category Date Time Status CXRP [XR chest 1V portable [id number]] Stat Exams 11/13/22 21:53 Completed MR ankle LT wo con* [id number] Stat MRI 11/14/22 09:13 Completed MR ankle RT wo con* [id number] Stat MRI 11/14/22 09:13 Completed Pending at discharge Category Date Time Status Anti-Neutrophil Cytoplasmic AB Routine Lab 11/14/22 14:00 Received Blood Culture Stat Lab 11/13/22 17:40 Results Body Fluid Culture & GS Stat Lab 11/14/22 12:50 Results C DIFF [Clostridioides Difficile PCR] Stat Lab 11/13/22 21:53 Uncollected Radiology Impressions Chest X-Ray 11/13/22 21:53 IMPRESSION: 1. Negative for infiltrate 2. Left-sided PICC line with tip approaching the atrial caval junction. 3. Cervical spine surgical hardware somewhat visualized. Ankle MRI 11/14/22 09:13 IMPRESSION: 1. Diffuse soft tissue edema with small joint effusion likely due to cellulitis and soft tissue infection. 2. Normal bone marrow signal. No evidence of osteomyelitis. 3. Additional nonacute findings as described above Laboratory Results WBC 20.2 10^3/uL (4.0-10.0) H 11/16/22 04:40 RBC 4.44 10^6/uL (4.1-5.3) 11/16/22 04:40 Hgb 12.6 g/dL (11.7-16.6) 11/16/22 04:40 Hct 39.4 % (42.0-52.0) L 11/16/22 04:40 MCV 88.7 fl (80-94) 11/16/22 04:40 MCH 28.4 pg (28.0-34.0) 11/16/22 04:40 MCHC 32.0 g/dL (30.0-36.0) 11/16/22 04:40 RDW 15.0 % (12.1-15.1) 11/16/22 04:40 Plt Count 381 10^3/cmm (130-400) 11/16/22 04:40 MPV 9.4 fL (7.4-10.4) 11/16/22 04:40 Neut % (Auto) 89.9 % 11/16/22 04:40 Lymph % (Auto) 6.7 % 11/16/22 04:40 Sierra % (Auto) 2.0 % 11/16/22 04:40 Eos % (Auto) 0.0 % 11/16/22 04:40 Baso % (Auto) 0.1 % 11/16/22 04:40 Neut # (Auto) 18.10 10^3/uL (1.8-7.7) H 11/16/22 04:40 Lymph # (Auto) 1.4 10^3/uL (0.8-4.8) 11/16/22 04:40 Sierra # (Auto) 0.4 10^3/uL (0.2-0.9) 11/16/22 04:40 Eos # (Auto) 0.0 10^3/uL (0.0-0.8) 11/16/22 04:40 Baso # (Auto) 0.0 10^3/uL (0.0-0.1) 11/16/22 04:40 Nucleated RBC % (auto) 0 % 11/16/22 04:40 Nucleated RBCs # 0.0 /100WBC 11/16/22 04:40 ESR 96 mm/hr (0-10) H 11/14/22 05:45 Sodium 138 mmol/L (136-145) 11/16/22 04:40 Potassium 3.7 mmol/L (3.5-5.1) 11/16/22 04:40 Chloride 99 mmol/L (98-107) 11/16/22 04:40 Carbon Dioxide 28 mmol/L (22-29) 11/16/22 04:40 Anion Gap 14.7 (5-19) 11/16/22 04:40 BUN 14 mg/dL (6-20) 11/16/22 04:40 Creatinine 0.6 mg/dL (0.7-1.2) L 11/16/22 04:40 GFR Calculation 138.4 mL/min (90-130) H 11/16/22 04:40 Glucose 150 mg/dL (65-115) H 11/16/22 04:40 Calculated Osmolality 289 mOsm/kg (285-295) 11/16/22 04:40 Lactic Acid 0.8 mmol/L (0.5-2.2) 11/13/22 19:31 Uric Acid 5.0 mg/dL (3.4-7.0) 11/14/22 07:08 Calcium 9.2 mg/dL (8.5-10.5) 11/16/22 04:40 Total Bilirubin 0.2 mg/dL (0.15-1.2) 11/16/22 04:40 AST 13 U/L (0-40) 11/16/22 04:40 ALT < 5 U/L (0-41) 11/16/22 04:40 Alkaline Phosphatase 79 U/L (40-130) 11/16/22 04:40 Total Protein 6.8 g/dL (6.6-8.7) 11/16/22 04:40 Albumin 3.0 g/dL (3.5-5.2) L 11/16/22 04:40 Globulin 3.8 g/dL (1.3-4.6) 11/16/22 04:40 Procalcitonin 0.23 ng/mL (0-0.5) 11/14/22 07:08 Urine Color Yellow (Yellow) 11/13/22 16:40 Urine Appearance Clear (CLEAR) 11/13/22 16:40 Urine pH 5 (5-7) 11/13/22 16:40 Ur Specific [place] 1.020 (1.005-1.030) 11/13/22 16:40 Urine Protein Neg (Negative) 11/13/22 16:40 Urine Glucose (UA) Norm (Normal) 11/13/22 16:40 Urine Ketones 1+ (Negative) H 11/13/22 16:40 Urine Blood 2+ (Negative) H 11/13/22 16:40 Urine Nitrate Negative (Negative) 11/13/22 16:40 Urine Bilirubin Neg (Negative) 11/13/22 16:40 Urine Urobilinogen Norm mg/dL (Negative) 11/13/22 16:40 Ur Leukocyte Esterase Negative (Negative) 11/13/22 16:40 Urine RBC Rare /hpf (0-2) 11/13/22 16:40 Urine WBC 0-4 /hpf (0-5) H 11/13/22 16:40 Ur Squamous Epith Cells Rare /hpf (0-5) 11/13/22 16:40 Amorphous Sediment Not Reportable 11/13/22 16:40 Urine Bacteria Trace /hpf (NONE) 11/13/22 16:40 Urine Mucus 2+ /hpf 11/13/22 16:40 Fluid Crystals Sent to path 11/14/22 12:50 Vancomycin Trough 10.2 ug/mL (10-15) 11/15/22 05:45 Rheumatoid Factor 19.0 IU/mL (0-14) H 11/14/22 14:00 Cycl Citrul Peptide IgG <16 UNITS 11/14/22 14:00 TAYLOR Titer 2 Cancelled 11/14/22 05:45 TAYLOR Titer 3 Cancelled 11/14/22 05:45 TAYLOR Nuclear Membr Pat Nuclear, homogeneous A 11/14/22 14:00 TAYLOR Pattern 2 Cancelled 11/14/22 05:45 TAYLOR Pattern 3 Cancelled 11/14/22 05:45 TAYLOR IFA Animal Tis Ttr 1:80 titer H 11/14/22 14:00 TAYLOR IFA Animal Tis Res Positive (NEGATIVE) A 11/14/22 14:00 ANCA Screen Cancelled 11/14/22 12:40 ANCA Titer Cancelled 11/14/22 12:40 c-ANCA Antibody Cancelled 11/14/22 12:40 p-ANCA Antibody Cancelled 11/14/22 12:40 SHIVAM-1 Antibody <1.0 neg AI (<1.0 NEG) 11/14/22 14:00 SS-A Antibody <1.0 neg AI (<1.0 NEG) 11/14/22 14:00 SS-B Antibody <1.0 neg AI (<1.0 NEG) 11/14/22 14:00 Sm ([place]) Antibody <1.0 neg AI (<1.0 NEG) 11/14/22 14:00 PROOF CLERK Antibody <1.0 neg AI (<1.0 NEG) 11/14/22 14:00 Scl-70 Antibody <1.0 neg AI (<1.0 NEG) 11/14/22 14:00 Anti-ds DNA IgG ([place]) Negative (NEGATIVE) 11/14/22 14:00 Anti-ds DNA Titer ([place]) Cancelled 11/14/22 05:45 Centromere B Antibody <1.0 neg AI (<1.0 NEG) 11/14/22 14:00 Thyroid Peroxidase Ab 15 IU/mL (<9) H 11/14/22 14:00 Complement C3c 178 mg/dL (82-185) 11/14/22 14:00 Complement C4c 18 mg/dL (15-53) 11/14/22 14:00 CH50 Classical Pathway >60 U/mL (31-60) H 11/14/22 14:00 HLA-B27 Negative (NEGATIVE) 11/14/22 14:00 RPR Nonreactive (Nonreactive) 11/14/22 14:00 HIV 1&2 Ab & HIV 1 Ag Non-reactive (Non-Reactiv) 11/14/22 14:00 HIV 1&2 Antibody Non-reactive (Non-Reactiv) 11/14/22 14:00 Vitals Last Vital Signs Temp 97.8 F 11/17/22 08:00 Pulse 73 11/17/22 08:00 Resp 16 11/17/22 08:00 BP 111/69 11/17/22 08:00 Pulse Ox 95 11/17/22 08:00 O2 Del Method Room Air 11/17/22 08:00 Discharge Plan Discharge Patient Disposition: Home Condition: Stable Prescriptions: New prednisone 20 mg tablet 20 mg PO BID Qty: 60 0RF Rx Instructions: 40 twice daily for next 1 week followed by 30 twice daily for next 1 week followed by 20 twice daily for 1 week followed by 20 daily Continued colchicine 0.6 mg tablet 0.6 mg PO DAILY PRN (Reason: gout) Qty: 90 2RF omeprazole 40 mg capsule,delayed release(DR/EC) 40 mg PO QAM Qty: 90 1RF ondansetron 4 mg tablet,disintegrating 4 mg PO Q8H PRN (Reason: nausea and vomiting) Qty: 30 5RF acetaminophen 500 mg Tablet 1,000 mg PO Q12H PRN (Reason: Pain) carbidopa-levodopa 25-250 mg tablet 1.5 - 2 tab PO Q6H amlodipine 5 mg Tablet 10 mg PO DAILY 30 Days Qty: 30 2RF metoprolol tartrate 50 mg tablet 50 mg PO BID Qty: 180 4RF Discontinued Ceftriaxone Infusion See Rx Instructions .ROUTE .COMPLEX Rx Instructions: DIRECTED AT GI LAB FOR 6 WEEKS Discharge Orders: Discharge Order (Routine); Ordered 11/17/22 Ordered By: Palmer Cifuentes Referrals: Wali Moon MD [Primary Care Provider] - 7-10 days ([facility] will call with your appointment.) Alexei Cruz MD [Physician] - 7-10 days ([facility] Rheumatology will call with your follow up.) Juan Salvador DPM [Physician] - 2 weeks ([facility] Podiatry will call with your appointment.) Discharge Diet: Cardiac Discharge Activity: Resume usual activity and Increase activity as tolerated Patient Instructions: Prednisone (By mouth), Osteoarthritis (DC), Self-Care Measures with a Chronic Disease (DC), Opioid Safety Activity Restrictions/Additional Instructions: Steroid taper as below. Take prednisone 40 mg twice daily for 2 weeks, then 30 mg twice daily for 2 weeks then 20 mg twice daily for 2 weeks and after that 20 mg daily. IV antibiotics have been stopped. Please make sure you follow-up with rheumatology within next 1 week and with podiatry within next 2 weeks. Discharge Attestations Time Spent in Discharge Care*: greater than 30 min Specific Discharge Activities: educating patient, discussing with pcp/other providers, discussing with therapeutic case manager/social workers/dc planners, documenting/other paperwork and evaluating patient/reviewing data Status at Discharge: Cognitive status at discharge: cognitively intact, Behavioral status at discharge: cooperative, Functional status at discharge: other assisted ambulation, Overall status at discharge: patient is progressing back to baseline Quality Metrics Clinical Quality Measures [ No reported AMI, CVA or VTE this stay] Coding Level of Care Code 49042 Total time (in minutes) for Discharge: 60 Diagnoses Septic arthritis of left ankle M00.9 Parkinsons disease G20 Hypertension I10 Hyperkalemia E87.5 Inflammatory polyarthritis M06.4 TAYLOR positive R76.8 Bilateral swelling of feet and ankles M25.471; M25.472; M25.474; M25.475 Swelling of joint of both wrists M25.431; M25.432
[2022-11-17] MEDS: amlodipine 5 mg Tablet 10 MG PO (09:59)
[2022-11-17] MEDS: pantoprazole DR 40 mg Tablet PO (09:59)
[2022-11-17] MEDS: metoprolol tartrate 50 mg Tablet PO (09:59)
[2022-11-17 10:05] LABS: ANCA Screen NEGATIVE (NEGATIVE)
[2022-11-17 11:20] VITALS: BP 111/69; PULSE 73; RESP 16; TEMP 36.6; O2SAT 95
--- NOTE | 2022-11-17 22:38 | PM.PN ---
Subjective Subjective: infectious disease progress note Patient continues to feel better, rates pain is now improved down to 4/10 his hands feel much better, foot continues to be painful but improved since starting steroids swelling and erythema over MTP and ankle joints are improving Afberile since 11/14 Cx from most recent aspirate remains negative to date TAYLOR titer returned + 1: 80 , nuclear homogenous pattern Medications: Reviewed: Yes Vitals/I&O/Wt Last Vital Signs Temp 97.8 F 11/17/22 11:20 Pulse 73 11/17/22 11:20 Resp 16 11/17/22 11:20 BP 111/69 11/17/22 11:20 Pulse Ox 95 11/17/22 11:20 O2 Del Method Room Air 11/17/22 08:00 11/17/22 11/17/22 11/17/22 06:59 14:59 22:59 Intake Total 600 / 1320 240 / 240 Balance 600 / 1320 240 / 240 Physical Exam Narrative: General: No acute distress, AO x3 HEENT: PERRLA, pupils bilaterally equal and reactive, pallors not present Extremities: Improving swelling over bilateral first MTP joints, improving swelling over bilateral ankles Data 11/16/22 04:40 11/16/22 04:40 Micro: Microbiology 11/14/22 12:50 Gram Stain - Final Ankle - #1 Body Fluid Culture - Final no organisms seen cx negative noted WBCs A&P Assessment and plan (1) Inflammatory polyarthritis: Inflammatory arthritis appearingt o be more likely now TAYLOR titer returned positive 1: 80, nuclear homogenous pattern Recommend referral to rheumatology for follow-up Currently receiving dexamethasone 6 mg IV 12 hours which appears to be improving his symptoms.. He is afebrile since starting steroids and joints appear to be less swollen and erythematous. He is clinically much improved on steroids. (2) Septic arthritis of left ankle: Septic arthritis appearing to be less likely now in view of new data made available and similar presentation in 2015. to Summarize, Patient recently received a diagnosis of septic arthritis of left ankle, diagnosed based on a synovial fluid aspirate with WBC of 60,000 predominant PMNLs. Gram stain had shown gram-positive cocci, eventually there was no growth on cultures.. Crystals were negative. Multiplex PCR from synovial fluid has now also returned negative. Blood cultures remain negative to date. Patient was receiving presumptive treatment with ceftriaxone 2 g IV daily for cx negative septic arthritis while pending DNA sequencing results. Now that all cultures and DNA sequencing results are negative, antibiotics were discontinued on November 15, 2022. CX from 11/14 left ankle aspirate are additonally negative. TAYLOR titer returned positive, likely that his symptoms are related to inflammatory arthritis/ autoimmune disorder Can remove PICC line as no further abx indicated at this point. Patient will likely benefit from continuing steroids until patient can be evaluated by rheumatology as outpatient- primary team arranging to expite this (3) Status post surgery: management per podiatry (4) Gout: Has a prior history of gout. crystal analysis pending from 11/14 Plan stable for discharge from ID standpoint off abx f/up prn Attestations Medical Necessity Statement*: per admitting note Coding Level of Care Code Acute Code for [facility] Fwd Diagnoses Inflammatory polyarthritis M06.4 Septic arthritis of left ankle M00.9 Status post surgery Z98.890 Gout M10.9
== END 2022-11-17 11:21 | disposition home or self-care (01) | DRG 547 ==
LOC: ER 20:16 → MEDSURG 20:31
PROVIDERS: Emergency Medicine; Podiatrist Foot & Ankle Surgery; Admitting Provider Student in an Organized Health Care Education/Training Program; Emergency Provider Emergency Medicine; PCP Family Medicine Adult Medicine; Visit Provider Student in an Organized Health Care Education/Training Program
DX: M05.89 Other rheumatoid arthritis with rheumatoid factor of multiple sites (principal); M10.9 Gout, unspecified; F41.9 Anxiety disorder, unspecified; F32.A Depression, unspecified; F17.220 Nicotine dependence, chewing tobacco, uncomplicated; K21.9 Gastro-esophageal reflux disease without esophagitis; I10 Essential (primary) hypertension; G20 Parkinson's disease; E87.5 Hyperkalemia
CPT/HCPCS: 36415; 36569; 36592; 71045; 73721; 80053; 80076; 80202; 80503; 81001; 82550; 82565; 83605; 84145; 84550; 85025; 85651; 86036; 86140; 86160; 86162; 86200; 86235; 86255; 86376; 86431; 86592; 86812; 87040; 87070; 87075; 87205; 87493; 87806; 96365; 96367; 96372; 96375; 96376; 99024; 99285; J0696; J1100; J1170; J1650; J2270; J2405; J2543; J2795; J3370; J7030; J7050

== ENCOUNTER → 2022-11-23 10:59 | Outpatient (BNVA) | payer MEDICARE, MEDICAID, SELFPAY | PROVIDERS: PCP Family Medicine Adult Medicine; Visit Provider Podiatrist Foot & Ankle Surgery | DX: Z98.890 Other specified postprocedural states (principal) | CPT/HCPCS: 99024 ==

== ENCOUNTER → 2022-11-29 14:53 | Outpatient (BNVA) | payer MEDICARE, MEDICAID, SELFPAY | PROVIDERS: PCP Family Medicine Adult Medicine; Visit Provider Surgery | DX: R07.0 Pain in throat (principal); Z12.11 Encounter for screening for malignant neoplasm of colon; R13.10 Dysphagia, unspecified | CPT/HCPCS: 99203 ==

== ENCOUNTER 2022-12-04 13:30 | Emergency (ER) | payer MEDICARE, MEDICAID, SELFPAY ==
--- NOTE | 2022-12-04 13:31 | CT_ITS ---
WS: [id number] CT HEAD TECHNIQUE: Noncontrast CT of the head obtained from the skullbase to the vertex. CLINICAL INFORMATION: ams, pupils unresponsive, cva possible COMPARISON: CT September 29, 2022 DLP: All CT scans at [facility] use at least one of these dose optimization techniques: automated e xposure control; mA and/or kV adjustment per patient size (includes targeted exams where dose is matc hed to clinical indication); or iterative reconstruction. FINDINGS: No evidence of intracranial hemorrhage or mass effect. Ventricular system and basal cisterns are kirk nt. Minimal small vessel changes. Mild parenchymal volume loss. Intracranial vascular calcification. No extra-axial fluid collections. No evidence of mass or mass effect. Paranasal sinuses and mastoid air cells are well aerated. .Normal visualized soft tissues. CT/CT head thrombolytic [id number] IMPRESSION: 1. No evidence of intracranial hemorrhage or mass effect 2. Intracranial vascular calcification. 3. No acute intracranial findings. Notified Abdiaziz Cruz DO at 12/04/2022 1:44 PM.
--- NOTE | 2022-12-04 13:32 | XR_ITS ---
WS: [id number] EXAMINATION: XR chest 1V portable [id number] REASON FOR EXAM: ams COMPARISON: 11/13/2022 ORDER DATE: 12/04/2022 1:57 PM TECHNIQUE: A single, portable frontal chest x-ray was obtained. X-RAY FINDINGS: The lungs are clear. Pleural spaces are clear. No pleural effusions or pneumothorax. Cardiomediastinal silhouette is normal. No evidence for pulmonary edema. Soft tissue and osseous structures are unremarkable. Partially visualized surgical instrumentation in the lower cervical spine fusion. XR/XR chest 1V portable [id number] IMPRESSION: Unremarkable frontal portable chest x-ray.
[2022-12-04 13:38] VITALS: O2SAT 97
--- NOTE | 2022-12-04 13:44 | ED_ITS ---
HPI - SOB/Dyspnea General: Chief Complaint: Neuro Symptoms/Deficit Stated Complaint: Stroke Time Seen by Provider: 12/04/22 13:31 History of Present Illness: HPI Narrative: Presents to the ER by EMS with complaints of unresponsiveness. By the time the patient was done with a CT he was alert oriented and talking. Patient states he was on the phone with EMS talking about how short of breath he was when he thinks he passed out fell forward hit a wall and/or knocked himself out. By EMS arrival he was still unconscious and unresponsive. Is all happened within the last hour or so. MD elicited complaint: shortness of breath Onset (ago): hour(s) Timing: constant and improved Severity: moderate Exacerbating factors: nothing Relieving factors: nothing Associated symptoms: Reports syncope Treatment prior to arrival: oxygen Review of Systems General: Reports: 10 or more systems reviewed and unremarkable except in HPI and below Card: Reports: syncope [facility] ED PFSH: Medical History Anxiety and depression CAD (coronary artery disease) Chewing tobacco nicotine dependence Age [age] (currently) Chronic right shoulder pain DDD (degenerative disc disease) Decreased glomerular filtration rate (GFR) Fusion of lumbar spine Gout Hearing loss Hyperkalemia Hypertension Knee pain, right Migraines Osteoarthritis Pain in left ankle Parkinsons disease Polyp of esophagus Polyp of tongue Swelling of joint of both wrists Swelling of left ankle joint TIA (transient ischemic attack) Surgical History History of back surgery x6 different surgeries on the spine History of esophagogastroduodenoscopy (EGD) 2010 History of total knee arthroplasty Left TKA x2 revision needed due to loosening of hardware, no history of infection Hx of bilateral hip replacements 3 on right hip and 0 left Hx of colonoscopy with polypectomy 2010 S/P cervical spinal fusion Family History Father Stroke Heart attack Brother Hypertension Sister Heart attack Social History Smoking and tobacco status: current every day smoker (chewing) smokeless tobacco Smokeless tobacco user: chewing tobacco Alcohol intake: former Desire information about alcohol rehabilitation?: No Substance/Drug Use: current Substance/Drug use frequency: other Other substance/drug use details: medical marijuana Desire information about substance/drug rehabilitation?: No Caregiver/support person: No Lives independently: Yes Household members: none Marital status: Single Highest education level completed: Some College, No Degree service: No Current occupational status: retired and disabled Do you think of yourself as: Straight/Heterosexual Current gender identity: Male Physical Exam Narrative: EXAM NARRATIVE: Upon arrival patient appeared to be unresponsive. When taken back to the CT scanner patient was unresponsive but by the time we got done with a CT scan he was alert oriented talking and coherent. Const: COMMON NORMALS: no acute distress, average body habitus, patient oriented x3, no limitations, healthy appearing, alert and well nourished HENMT: COMMON NORMALS: normocephalic, atraumatic, hearing grossly normal bilaterally, external ears normal, Normal external nose present and moist oral mucous membranes HEAD & SCALP: normocephalic and atraumatic NOSE: Normal external nose present EXTERNAL EAR: Yes external ears normal Eye: COMMON NORMALS: Equal, round and reactive pupils present, EOMs intact bilaterally, conjunctivae normal and no scleral icterus CONJUNCTIVA: Yes conjunctivae normal PUPIL: Yes Equal, round and reactive pupils present Neck/C-Spine: COMMON NORMALS: full ROM, no lymphadenopathy, supple, no meningeal signs, no JVD and Thyroid normal THYROID: Thyroid normal Chest: COMMONS NORMALS: normal inspection of the chest and normal palpation of entire chest wall Resp: COMMON NORMALS: normal respiratory effort, No retractions, No use of accessory muscles and clear to auscultation bilaterally AUSCULTATION: clear to auscultation bilaterally Cardio: COMMON NORMALS: no JVD, regular rate, regular rhythm, S1 normal heart sound present, S2 normal heart sound present, No gallops present (Cardio), No clicks present (Cardio), No murmurs present (Cardio) and No rub (Cardio) RATE: regular rate RHYTHM: regular rhythm HEART SOUNDS: S1 normal heart sound present and S2 normal heart sound present GI: COMMON NORMALS: Normal to inspection, nondistended, normoactive bowel sounds present, Soft to palpation, non-tender, No hepatosplenomegaly present and no masses PALPATION: Yes Soft to palpation and Yes No hepatosplenomegaly present : COMMON NORMALS: Yes no CVA tenderness BLADDER/KIDNEY EXAM: Yes no CVA tenderness Back/Pelvis: COMMON NORMALS: no CVA tenderness Extremity: NARRATIVE EXTREMITY EXAM: Patient equal strength bilaterally in upper extremities patient is wheelchair- bound and does not move his lower extremities much at all. Patient said this is normal for him as well is nursing remembered him. Neuro: COMMON NORMALS: patient oriented x3 SENSORIUM/ORIENTATION: Yes alert MENINGEAL SIGNS: Yes no meningeal signs Course Vital Signs: Vital signs: Vital Signs Temperature 98.3 F 12/04/22 13:45 Pulse Rate 82 12/04/22 15:00 Respiratory Rate 26 H 12/04/22 15:00 Blood Pressure 117/78 12/04/22 15:00 Pulse Oximetry 95 12/04/22 15:00 Oxygen Delivery Me thod Room Air 12/04/22 13:45 MDM - SOB/Dyspnea Medical Decision Making Patient presents to the ER by EMS with stroke alert. Patient was found down on the ground with being unresponsive. Patient was on the phone calling EMS for shortness of breath when it sounds like he passed out his head on the way down and EMS found him unresponsive. What time they got here he was responsive alert and oriented and coherent and asking for pain medicine. Patient's lab work did reveal a low potassium of 2.6, his head CT was essentially negative as well as a chest x-ray. Patient was on his call light multiple times asking for pain medicine while we were waiting for his lab work to come back and patient eventually said he got tired of waiting and he would just leave if we were so busy. Patient be discharged home with a diagnosis of hypokalemia and syncope. Differential Diagnosis Unlikely acute exacerbation of chronic obstructive airways disease, congestive heart failure, community acquired pneumonia, asthma with exacerbation or pulmonary embolism Medical Records I reviewed the patient's medical records. Lab Data I reviewed the patient's lab results. 12/04/22 13:44 12/04/22 13:44 Labs/Radiology: Radiology Impressions Head CT 12/04/22 13:31 IMPRESSION: 1. No evidence of intracranial hemorrhage or mass effect 2. Intracranial vascular calcification. 3. No acute intracranial findings. Notified Abdiaziz Cruz DO at 12/04/2022 1:44 PM. Chest X-Ray 12/04/22 13:32 IMPRESSION: Unremarkable frontal portable chest x-ray. Laboratory Results WBC 12.5 10^3/uL (4.0-10.0) H 12/04/22 13:44 RBC 4.62 10^6/uL (4.1-5.3) 12/04/22 13:44 Hgb 13.0 g/dL (11.7-16.6) 12/04/22 13:44 Hct 40.9 % (42.0-52.0) L 12/04/22 13:44 MCV 88.5 fl (80-94) 12/04/22 13:44 MCH 28.1 pg (28.0-34.0) 12/04/22 13:44 MCHC 31.8 g/dL (30.0-36.0) 12/04/22 13:44 RDW 17.2 % (12.1-15.1) H 12/04/22 13:44 Plt Count 194 10^3/cmm (130-400) 12/04/22 13:44 MPV 9.2 fL (7.4-10.4) 12/04/22 13:44 Neut % (Auto) 69.9 % 12/04/22 13:44 Lymph % (Auto) 23.4 % 12/04/22 13:44 [place] % (Auto) 4.1 % 12/04/22 13:44 Eos % (Auto) 0.6 % 12/04/22 13:44 Baso % (Auto) 0.2 % 12/04/22 13:44 Neut # (Auto) 8.72 10^3/uL (1.8-7.7) H 12/04/22 13:44 Lymph # (Auto) 2.9 10^3/uL (0.8-4.8) 12/04/22 13:44 [place] # (Auto) 0.5 10^3/uL (0.2-0.9) 12/04/22 13:44 Eos # (Auto) 0.1 10^3/uL (0.0-0.8) 12/04/22 13:44 Baso # (Auto) 0.0 10^3/uL (0.0-0.1) 12/04/22 13:44 Nucleated RBC % (auto) 0 % 12/04/22 13:44 Nucleated RBCs # 0.0 /100WBC 12/04/22 13:44 PT 12.00 SECONDS (12.1-14.9) L 12/04/22 13:44 INR 0.86 (0.8-1.2) 12/04/22 13:44 APTT 21.5 SECONDS (23.9-36.7) L 12/04/22 13:44 Sodium 145 mmol/L (136-145) 12/04/22 13:44 Potassium 2.6 mmol/L (3.5-5.1) L* 12/04/22 13:44 Chloride 104 mmol/L (98-107) 12/04/22 13:44 Carbon Dioxide 30 mmol/L (22-29) H 12/04/22 13:44 Anion Gap 13.6 (5-19) 12/04/22 13:44 BUN 19 mg/dL (6-20) 12/04/22 13:44 Creatinine 0.8 mg/dL (0.7-1.2) 12/04/22 13:44 GFR Calculation 99.3 mL/min (90-130) 12/04/22 13:44 Glucose 117 mg/dL (65-115) H 12/04/22 13:44 Calculated Osmolality 303 mOsm/kg (285-295) H 12/04/22 13:44 Calcium 7.6 mg/dL (8.5-10.5) L 12/04/22 13:44 Total Bilirubin 0.3 mg/dL (0.15-1.2) 12/04/22 13:44 AST 16 U/L (0-40) 12/04/22 13:44 ALT 13 U/L (0-41) 12/04/22 13:44 Alkaline Phosphatase 121 U/L (40-130) 12/04/22 13:44 Troponin T Baseline 16 ng/L (0-15) H 12/04/22 13:44 Total Protein 5.1 g/dL (6.6-8.7) L 12/04/22 13:44 Albumin 2.7 g/dL (3.5-5.2) L 12/04/22 13:44 Globulin 2.4 g/dL (1.3-4.6) 12/04/22 13:44 Urine Color Yellow (Yellow) 12/04/22 14:40 Urine Appearance Clear (CLEAR) 12/04/22 14:40 Urine pH 5 (5-7) 12/04/22 14:40 Ur Specific [place] 1.015 (1.005-1.030) 12/04/22 14:40 Urine Protein Neg (Negative) 12/04/22 14:40 Urine Glucose (UA) Norm (Normal) 12/04/22 14:40 Urine Ketones Negative (Negative) 12/04/22 14:40 Urine Blood Neg (Negative) 12/04/22 14:40 Urine Nitrate Negative (Negative) 12/04/22 14:40 Urine Bilirubin Neg (Negative) 12/04/22 14:40 Urine Urobilinogen Norm mg/dL (Negative) 12/04/22 14:40 Ur Leukocyte Esterase Negative (Negative) 12/04/22 14:40 Urine Opiates Screen Negative ng/mL (Negative) 12/04/22 14:40 Ur Barbiturates Screen Negative ng/mL (Negative) 12/04/22 14:40 Ur Phencyclidine Scrn Negative ng/mL (Negative) 12/04/22 14:40 Ur Amphetamines Screen Negative ng/mL (Negative) 12/04/22 14:40 U Benzodiazepines Scrn Negative ng/mL (Negative) 12/04/22 14:40 Urine Cocaine Screen Negative ng/mL (Negative) 12/04/22 14:40 U Marijuana (THC) Screen Positive ng/mL (Negative) H 12/04/22 14:40 EKG Data EKG 1: I personally reviewed and interpreted this EKG as follows: EKG Interpretation Date: 12/04/22 EKG interpretation time: 13:49 Prior EKG tracings: not available for review Interpretation: EKG showed normal sinus rhythm with a ventricular rate of 82 beats a minute, DE interval 152, QRS duration 97, QTc of 404, no ST-T wave changes Discharge Plan Discharge Patient Disposition: Home Clinical Impression: Acute hypokalemia, Marijuana user Syncope Qualifiers: Syncope type: unspecified Qualified Code(s): R55 - Syncope and collapse Condition: Stable Prescriptions: No Action colchicine 0.6 mg tablet 0.6 mg PO DAILY PRN (Reason: gout) Qty: 90 2RF omeprazole 40 mg capsule,delayed release(DR/EC) 40 mg PO QAM Qty: 90 1RF ondansetron 4 mg tablet,disintegrating 4 mg PO Q8H PRN (Reason: nausea and vomiting) Qty: 30 5RF prednisone 20 mg tablet See Rx Instructions .ROUTE .COMPLEX Rx Instructions: TAKE 4 TABLETS BY MOUTH TWICE DAILY FOR TWO weeks, TAKE 1 AND 1/2 TABLETS TWICE DAILY FOR TWO weeks, TAKE ONE TABLET TWICE DAILY FOR TWO weeks THEN TAKE ONE TABLET DAILY thereafter amlodipine 5 mg tablet 10 mg PO DAILY acetaminophen 500 mg Tablet 1,000 mg PO Q6H PRN (Reason: Pain) carbidopa-levodopa 25-250 mg tablet 1.5 - 2 tab PO Q6H metoprolol tartrate 50 mg tablet 50 mg PO BID Qty: 180 4RF Discharge Orders: Discharge ED (Routine); Ordered 12/04/22 Ordered By: Abdiaziz Cruz Referrals: Wali Moon MD [Primary Care Provider] - 7-10 days Patient Instructions: Syncope, Hypokalemia Coding Level of Care Code 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
[2022-12-04 13:45] VITALS: BP 135/83; PULSE 84; RESP 16; TEMP 36.8; O2SAT 95; BMI 28.3
--- NOTE | 2022-12-04 13:49 | ECG_ITS ---
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 Measurements Intervals [place] Rate: 82 P: 58 VA: 152 QRS: 8 QRSD: 97 T: 30 QT: 365 QTc: 428 Interpretive Statements SINUS RHYTHM Compared to ECG 10/02/2022 20:00:58 No significant changes Electronically Signed On 12-04-2022 16:20:41 CDT by Miguelina Gupta M.D. [id number]
[2022-12-04 13:56] LABS: Basophils % 0.2 %; Eosinophils # 0.1 10^3/uL (0.0-0.8); Eosinophils % 0.6 %; Hematocrit 40.9 % (42.0-52.0); Lymphocytes # 2.9 10^3/uL (0.8-4.8); Lymphocytes % 23.4 %; Mean Corpuscular HGB Conc 31.8 g/dL (30.0-36.0); Mean Corpuscular Hemoglobin 28.1 pg (28.0-34.0); Mean Corpuscular Volume 88.5 fl (80-94); Mean Platelet Volume 9.2 fL (7.4-10.4); Monocytes # 0.5 10^3/uL (0.2-0.9); Monocytes % 4.1 %; Neutrophils # 8.72 10^3/uL (1.8-7.7); Neutrophils % 69.9 %; Nucleated Red Blood Cells % 0 %; Platelet Count 194 10^3/cmm (130-400); Red Blood Count 4.62 10^6/uL (4.1-5.3); Red Cell Distribution Width 17.2 % (12.1-15.1); White Blood Count 12.5 10^3/uL (4.0-10.0)
[2022-12-04 14:00] VITALS: BP 124/85; PULSE 82; RESP 26; O2SAT 95
[2022-12-04 14:07] LABS: INR 0.86 (0.8-1.2)
[2022-12-04 14:08] LABS: Partial Thromboplastin Time 21.5 SECONDS (23.9-36.7)
[2022-12-04 14:15] LABS: Alanine Aminotransferase 13 U/L (0-41); Albumin Level 2.7 g/dL (3.5-5.2); Alkaline Phosphatase 121 U/L (40-130); Anion Gap 13.6 (5-19); Aspartate Amino Transferase 16 U/L (0-40); Blood Urea Nitrogen 19 mg/dL (6-20); Calcium 7.6 mg/dL (8.5-10.5); Carbon Dioxide 30 mmol/L (22-29); Chloride 104 mmol/L (98-107); Creatinine Clr Calc Pharmacy 96.4417; Globulin 2.4 g/dL (1.3-4.6); Glomerular Filtration Rate 99.3 mL/min (90-130); Glucose 117 mg/dL (65-115); Osmolality Calculated 303 mOsm/kg (285-295); Sodium 145 mmol/L (136-145); Total Bilirubin 0.3 mg/dL (0.15-1.2); Total Protein 5.1 g/dL (6.6-8.7)
[2022-12-04 14:23] LABS: Potassium 2.6 mmol/L (3.5-5.1)
[2022-12-04 14:30] VITALS: BP 131/89; PULSE 82; RESP 22; O2SAT 98
[2022-12-04 14:31] LABS: Troponin(5th) Baseline 16 ng/L (0-15)
--- NOTE | 2022-12-04 14:33 | PC.PHAR ---
pt unable to verify all medications-medications entered are from what [facility] states they have filled for the pt recently and what the pt can verify-notes are made in the pharmacy comments
[2022-12-04] MEDS: potassium chloride ER 20 mEq Tablet 40 MEQ PO (14:41)
[2022-12-04 14:47] LABS: Add Urine Microscopic? NO; Charge for UA Resulting for Rev
[2022-12-04 14:50] LABS: Bilirubin Urine Neg (Negative); Blood Urine Neg (Negative); Glucose Urine UA Norm (Normal); Ketones Urine Negative (Negative); Leukocyte Esterase Urine Negative (Negative); Nitrate Urine Negative (Negative); Protein Urine Neg (Negative); Specific Gravity, Urine 1.015 (1.005-1.030); Urine Appearance Clear (CLEAR); Urine Color Yellow (Yellow); Urobilinogen Urine Norm (Negative); pH Urine 5 (5-7)
[2022-12-04 15:00] VITALS: BP 117/78; PULSE 82; RESP 26; O2SAT 95
[2022-12-04 15:03] LABS: Amphetamines Screen Urine Negative (Negative); Barbiturates Screen Urine Negative (Negative); Benzodiazepines Screen Urine Negative (Negative); Cocaine Screen Urine Negative (Negative); Opiate Screen Urine Negative (Negative); PCP Screen Urine Negative (Negative); THC Screen Urine Positive (Negative)
[2022-12-04 15:30] VITALS: BP 148/98; PULSE 86; RESP 22; O2SAT 98
--- NOTE | 2022-12-04 15:54 | PC.NURSE ---
PT HIT CALL LIGHT AND STATED THAT YOU GUYS ARE TOO BUSY AND I WANT TO LEAVE. I NOTIFIED DR. DING OF THE PT REQUEST AND DC ORDERS WERE GIVEN. WITNESSED BY SECOND RN CONSTANZA BRIONES
[2022-12-04 16:51] LABS: Troponin 5 2HR 17.14 ng/L (0-15)
[2022-12-04 16:52] LABS: Troponin 5 2HR Delta 1.14 ABS# (0-10)
== END 2022-12-04 17:00 | disposition home or self-care (01) ==
PROVIDERS: Emergency Provider Emergency Medicine; PCP Family Medicine Adult Medicine
DX: R55 Syncope and collapse (principal); E87.6 Hypokalemia; F12.90 Cannabis use, unspecified, uncomplicated; F17.220 Nicotine dependence, chewing tobacco, uncomplicated; I25.10 Atherosclerotic heart disease of native coronary artery without angina pectoris; I10 Essential (primary) hypertension; G20 Parkinson's disease; Z86.73 Personal history of transient ischemic attack (TIA), and cerebral infarction without residual deficits
CPT/HCPCS: 36415; 70450; 71045; 80053; 80306; 81003; 84484; 85025; 85610; 85730; 93005; 99285

== ENCOUNTER 2022-12-09 20:35 | Emergency (ER) | payer MEDICARE, MEDICAID, SELFPAY ==
[2022-12-09] VITALS (7 sets, daily range): BP systolic 130–166; BP diastolic 90–106; PULSE 89–96; RESP 15–21; TEMP 36.8; O2SAT 92–99; BMI 29.1
--- NOTE | 2022-12-09 20:42 | ECG_ITS ---
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 Measurements Intervals [place] Rate: 97 P: 61 NC: 140 QRS: 13 QRSD: 85 T: 30 QT: 341 QTc: 433 Interpretive Statements SINUS RHYTHM Compared to ECG 12/04/2022 13:49:43 No significant changes Electronically Signed On 12-10-2022 9:37:58 CDT by Rashad El M.D. [email or web address] [id number] f
--- NOTE | 2022-12-09 20:57 | XR_ITS ---
WS: [id number] Exam: XR chest 1V portable [id number] Date/Time of Exam: 12/09/2022 8:57 PM Reason For Exam: chest pain, sob Comparison 12/04/2022. The lungs are clear and fully inflated. Normal cardiomediastinal silhouette and regional bony element s. Fusion hardware noted in the visualized lower C-spine. XR/XR chest 1V portable [id number] IMPRESSION: 1. No acute cardiopulmonary finding. Stable.
--- NOTE | 2022-12-09 21:03 | ED_ITS ---
HPI - Chest Pain General: Chief Complaint: Chest Pain Stated Complaint: CP Time Seen by Provider: 12/09/22 21:03 History of Present Illness: Mr. Burden is a 57-year-old gentleman history of CAD, hypertension, TIA presenting to the emergency department for generalized concern. He notes onset of symptoms this morning of headache with left-sided intermittent facial paresthesias and dizziness. Dizziness is worse with head movement and attempts at ambulation. He also notes substernal chest pain without significant other typical cardiac features. Intensity symptoms moderate. Course has persisted. No other specific changes in health, exacerbating, or alleviating factors identified. Onset (ago): hour(s) Timing of current episode: constant Severity: moderate Review of Systems General: Reports: 10 or more systems reviewed and unremarkable except in HPI and below PFSH ED PFSH: Medical History Anxiety about health Anxiety and depression CAD (coronary artery disease) Chewing tobacco nicotine dependence Age [age] (currently) Chronic right shoulder pain DDD (degenerative disc disease) Decreased glomerular filtration rate (GFR) Fusion of lumbar spine Gout Head injury due to trauma Hearing loss Hypertension Hypokalemia Knee pain, right Migraines Osteoarthritis Pain in left ankle Parkinsons disease Polyp of esophagus Polyp of tongue Swelling of joint of both wrists Swelling of left ankle joint TIA (transient ischemic attack) Surgical History History of back surgery x6 different surgeries on the spine History of esophagogastroduodenoscopy (EGD) 2010 History of total knee arthroplasty Left TKA x2 revision needed due to loosening of hardware, no history of infection Hx of bilateral hip replacements 3 on right hip and 0 left Hx of colonoscopy with polypectomy 2010 S/P cervical spinal fusion Family History Father Stroke Heart attack Brother Hypertension Sister Heart attack Social History Smoking and tobacco status: current every day smoker (chewing) smokeless tobacco Smokeless tobacco user: chewing tobacco Alcohol intake: former Desire information about alcohol rehabilitation?: No Substance/Drug Use: current Substance/Drug use frequency: other Other substance /drug use details: medical marijuana Desire information about substance/drug rehabilitation?: No Caregiver/support person: No Lives independently: Yes Household members: none Marital status: Single Highest education level completed: Some College, No Degree service: No Current occupational status: retired and disabled Do you think of yourself as: Straight/Heterosexual Current gender identity: Male Physical Exam Const: COMMON NORMALS: patient oriented x3 and alert GENERAL APPEARANCE: cooperative and well developed HENMT: COMMON NORMALS: normocephalic and atraumatic HEAD & SCALP: normocephalic and atraumatic THROAT: posterior oropharynx normal Eye: COMMON NORMALS: conjunctivae normal CONJUNCTIVA: Yes conjunctivae normal SCLERA: sclerae normal Neck/C-Spine: COMMON NORMALS: supple GENERAL: Yes trachea midline Resp: COMMON NORMALS: clear to auscultation bilaterally EFFORT & INSPECTION: Yes able to speak in complete sentences AUSCULTATION: clear to auscultation bilaterally Cardio: COMMON NORMALS: regular rate and regular rhythm RATE: regular rate RHYTHM: regular rhythm GI: COMMON NORMALS: Soft to palpation PALPATION: Yes Soft to palpation and No Tenderness to palpation present (GI) PERCUSSION: normal to percussion Extremity: GENERAL: Yes normal exam except as noted and No edema Neuro: COMMON NORMALS: patient oriented x3, CN's II-XII intact bilaterally, moves all extremities, no focal motor deficits and no sensory deficits noted SENSORIUM/ORIENTATION: Yes alert and No Orientation impaired Psych: COMMON NORMALS: mental status grossly normal and Normal thought process present THOUGHT PROCESS: Normal thought process present Course Vital Signs: Vital signs: Vital Signs Temperature 98.2 F 12/09/22 20:40 Pulse Rate 93 12/10/22 00:52 Respiratory Rate 18 12/10/22 00:52 Blood Pressure 132/94 12/10/22 00:52 Pulse Oximetry 97 12/10/22 00:52 Oxygen Delivery Me thod Room Air 12/09/22 23:30 MDM - Chest Pain Medical Decision Making 57-year-old gentleman presenting with generalized illness. Exam as above. Patient is nontoxic. No meningismus. No focal deficits. Chest pain is not re producible with palpation on exam. EKG demonstrates sinus rhythm with normal axis and intervals, no STEMI. Labs notable for mild leukocytosis, normal hemoglobin and platelet count. Metabolic panel with mild hypokalemia. Magnesium is also low. Negative range 2-hour delta troponin. Chest x-ray with no lobar consolidation or pneumothorax. CT head with subtle extra-axial ill-defined area of increased attenuation. [place] to be artifact versus prominent vessel although small acute on chronic subdural hemorrhage reportedly not completely ruled out. Discussed with [facility]. No indication for transfer, okay to follow-up with outpatient imaging. I agree with this plan as low clinical suspicion for acute pathology based on clinical history provided and exam. Normal cardiac cath March 2022. CTA head and neck without significant vascular disease September 2022. Patient feels improved with potassium and magnesium replenishment, antivertigo and pain medication. Symptoms have essentially resolved. The results of ED evaluation were discussed with the patient including prescriptions and/or symptomatic cares (if applicable) including appropriate and responsible use, followup plan, and return precautions. The patient verbalized understanding and felt safe for discharge. Medical Records I reviewed the patient's medical records. Lab Data I reviewed the patient's lab results. 12/09/22 20:52 12/09/22 20:52 Radiology Impressions Chest X-Ray 12/09/22 20:57 IMPRESSION: 1. No acute cardiopulmonary finding. Stable. Head CT 12/09/22 21:07 IMPRESSION: Subtle extra-axial ill-defined area of increased attenuation anterior to the frontal lobe on series 3, image 23. This finding appears slightly increased in conspicuity when compared with the prior exams and may represent artifact versus prominent extra-axial vessels however other etiologies including small acute on chronic subdural hemorrhage cannot be completely excluded. Correlate and follow-up as clinically indicated. Laboratory Results WBC 12.5 10^3/uL (4.0-10.0) H 12/09/22 20:52 RBC 5.25 10^6/uL (4.1-5.3) 12/09/22 20:52 Hgb 14.7 g/dL (11.7-16.6) 12/09/22 20:52 Hct 46.2 % (42.0-52.0) 12/09/22 20:52 MCV 88.0 fl (80-94) 12/09/22 20:52 MCH 28.0 pg (28.0-34.0) 12/09/22 20:52 MCHC 31.8 g/dL (30.0-36.0) 12/09/22 20:52 RDW 17.2 % (12.1-15.1) H 12/09/22 20:52 Plt Count 226 10^3/cmm (130-400) 12/09/22 20:52 MPV 9.3 fL (7.4-10.4) 12/09/22 20:52 Neut % (Auto) 68.3 % 12/09/22 20:52 Lymph % (Auto) 25.5 % 12/09/22 20:52 Jenkins % (Auto) 4.5 % 12/09/22 20:52 Eos % (Auto) 0.6 % 12/09/22 20:52 Baso % (Auto) 0.2 % 12/09/22 20:52 Neut # (Auto) 8.55 10^3/uL (1.8-7.7) H 12/09/22 20:52 Lymph # (Auto) 3.2 10^3/uL (0.8-4.8) 12/09/22 20:52 Jenkins # (Auto) 0.6 10^3/uL (0.2-0.9) 12/09/22 20:52 Eos # (Auto) 0.1 10^3/uL (0.0-0.8) 12/09/22 20:52 Baso # (Auto) 0.0 10^3/uL (0.0-0.1) 12/09/22 20:52 Nucleated RBC % (auto) 0 % 12/09/22 20:52 Nucleated RBCs # 0.0 /100WBC 12/09/22 20:52 Sodium 143 mmol/L (136-145) 12/09/22 20:52 Potassium 2.9 mmol/L (3.5-5.1) L 12/09/22 20:52 Chloride 98 mmol/L (98-107) 12/09/22 20:52 Carbon Dioxide 30 mmol/L (22-29) H 12/09/22 20:52 Anion Gap 17.9 (5-19) 12/09/22 20:52 BUN 11 mg/dL (6-20) 12/09/22 20:52 Creatinine 0.8 mg/dL (0.7-1.2) 12/09/22 20:52 GFR Calculation 99.3 mL/min (90-130) 12/09/22 20:52 Glucose 84 mg/dL (65-115) 12/09/22 20:52 Calculated Osmolality 295 mOsm/kg (285-295) 12/09/22 20:52 Calcium 9.5 mg/dL (8.5-10.5) 12/09/22 20:52 Magnesium 1.3 mg/dL (1.7-2.3) L 12/09/22 20:52 Total Bilirubin 0.6 mg/dL (0.15-1.2) 12/09/22 20:52 AST 14 U/L (0-40) 12/09/22 20:52 ALT 11 U/L (0-41) 12/09/22 20:52 Alkaline Phosphatase 87 U/L (40-130) 12/09/22 20:52 Troponin T Baseline 14 ng/L (0-15) 12/09/22 20:52 Troponin T 120 Minute 13.37 ng/L (0-15) 12/09/22 22:54 Delta Troponin T -0.63 ABS# (0-10) L 12/09/22 22:54 Total Protein 6.9 g/dL (6.6-8.7) 12/09/22 20:52 Albumin 3.5 g/dL (3.5-5.2) 12/09/22 20:52 Globulin 3.4 g/dL (1.3-4.6) 12/09/22 20:52 Discharge Plan Discharge Patient Disposition: Home Clinical Impression: Chest pain, Headache, Dizziness Condition: Stable Prescriptions: New potassium chloride 10 mEq tablet extended release 10 meq PO DAILY Qty: 7 0RF No Action colchicine 0.6 mg tablet 0.6 mg PO DAILY PRN (Reason: gout) Qty: 90 2RF omeprazole 40 mg capsule,delayed release(DR/EC) 40 mg PO QAM Qty: 90 1RF ondansetron 4 mg tablet,disintegrating 4 mg PO Q8H PRN (Reason: nausea and vomiting) Qty: 30 5RF sertraline 25 mg tablet 25 mg PO DAILY Qty: 30 0RF hydroxyzine HCl 25 mg tablet 25 mg PO TID PRN (Reason: anxiety) Qty: 60 0RF amlodipine 5 mg tablet See Rx Instructions .ROUTE .COMPLEX Qty: 60 5RF Dose Instruction: TAKE 2 TABLETS BY MOUTH EVERY DAY Rx Instructions: TAKE 2 TABLETS BY MOUTH EVERY DAY prednisone 20 mg tablet See Rx Instructions .ROUTE .COMPLEX Rx Instructions: TAKE 4 TABLETS BY MOUTH TWICE DAILY FOR TWO weeks, TAKE 1 AND 1/2 TABLETS TWICE DAILY FOR TWO weeks, TAKE ONE TABLET TWICE DAILY FOR TWO weeks THEN TAKE ONE TABLET DAILY thereafter acetaminophen 500 mg Tablet 1,000 mg PO Q6H PRN (Reason: Pain) carbidopa-levodopa 25-250 mg tablet 1.5 - 2 tab PO Q6H metoprolol tartrate 50 mg tablet 50 mg PO BID Qty: 180 4RF Discharge Orders: Discharge ED (Routine); Ordered 12/10/22 Ordered By: Agus Villalobos Referrals: Wali Moon MD [Primary Care Provider] - Discharge Diet: Usual diet Discharge Activity: Increase activity as tolerated Patient Instructions: Chest Pain (ED), Hypokalemia (ED), Acute Headache (ED), Hypomagnesemia (ED) Activity Restrictions/Additional Instructions: Thank you for visiting the emergency department. You were seen and evaluated for headache and chest pain. The exact cause of your symptoms is unclear however based on prior evaluation and and further discussion with consultants does not require inpatient management at this time. As discussed you do have a abnormality on your head CT and I will message case management for repeat head CT in 1 week. Your potassium and magnesium were low which may explain some of your symptoms, I will prescribe potassium supplementation. Please follow-up with your primary care provider. Return for any new neurologic symptoms or anything else that you are concerned about and feel needs emergency department evaluation. Coding Level of Care Code ED [employer] for [facility] Pressley
[2022-12-09 21:05] LABS: Basophils % 0.2 %; Eosinophils # 0.1 10^3/uL (0.0-0.8); Eosinophils % 0.6 %; Hematocrit 46.2 % (42.0-52.0); Hemoglobin 14.7 g/dL (11.7-16.6); Lymphocytes # 3.2 10^3/uL (0.8-4.8); Lymphocytes % 25.5 %; Mean Corpuscular HGB Conc 31.8 g/dL (30.0-36.0); Mean Platelet Volume 9.3 fL (7.4-10.4); Monocytes # 0.6 10^3/uL (0.2-0.9); Monocytes % 4.5 %; Neutrophils # 8.55 10^3/uL (1.8-7.7); Neutrophils % 68.3 %; Nucleated Red Blood Cells % 0 %; Platelet Count 226 10^3/cmm (130-400); Red Blood Count 5.25 10^6/uL (4.1-5.3); Red Cell Distribution Width 17.2 % (12.1-15.1); White Blood Count 12.5 10^3/uL (4.0-10.0)
--- NOTE | 2022-12-09 21:07 | CTR_ITS ---
PROCEDURE INFORMATION: Exam: CT Head Without Contrast Exam date and time: 12/09/2022 9:34 PM Age: 57 years old Clinical indication: Dizziness and weakness, facial; Patient HX: Dizziness with left facial numbness. ; Additional info: Dizzy, face paresthesias TECHNIQUE: Imaging protocol: Computed tomography of the head without contrast. Radiation optimization: All CT scans at this facility use at least one of these dose optimization techniques: automated exposure control; mA and/or kV adjustment per patient size (includes targeted exams where dose is matched to clinical indication); or iterative reconstruction. REPORTING DATA: Count of CT and Cardiac NM exams in prior 12 months: This patient has received 4 known CTs and 0 known cardiac nuclear medicine studies in the 12 months prior to the current study. COMPARISON: CT head thrombolytic [id number] 12/04/2022 1:27 PM RADIATION DOSE METRICS: Total DLP (mGy-cm): 958.58 FINDINGS: Brain: Subtle extra-axial ill-defined area of increased attenuation anterior to the frontal lobe on series 3, image 23. No acute intraparenchymal hemorrhage, mass effect, or midline shift. Cerebral ventricles: The ventricular system is within normal limits of variation for the patient's age. Paranasal sinuses: Visualized paranasal sinuses are grossly unremarkable. No fluid levels. Mastoid air cells: Visualized mastoid air cells are well aerated. Bones/joints: No acute fracture. Soft tissues: Grossly unremarkable. Vasculature: Atheromatous changes are seen within the bilateral carotid siphons. CT/CT head wo con* [id number] IMPRESSION: Subtle extra-axial ill-defined area of increased attenuation anterior to the frontal lobe on series 3, image 23. This finding appears slightly increased in conspicuity when compared with the prior exams and may represent artifact versus prominent extra-axial vessels however other etiologies including small acute on chronic subdural hemorrhage cannot be completely excluded. Correlate and follow-up as clinically indicated.
[2022-12-09 21:30] LABS: Troponin(5th) Baseline 14 ng/L (0-15)
[2022-12-09 21:31] LABS: Alanine Aminotransferase 11 U/L (0-41); Albumin Level 3.5 g/dL (3.5-5.2); Alkaline Phosphatase 87 U/L (40-130); Anion Gap 17.9 (5-19); Aspartate Amino Transferase 14 U/L (0-40); Blood Urea Nitrogen 11 mg/dL (6-20); Calcium 9.5 mg/dL (8.5-10.5); Carbon Dioxide 30 mmol/L (22-29); Chloride 98 mmol/L (98-107); Globulin 3.4 g/dL (1.3-4.6); Glomerular Filtration Rate 99.3 mL/min (90-130); Glucose 84 mg/dL (65-115); Osmolality Calculated 295 mOsm/kg (285-295); Sodium 143 mmol/L (136-145); Total Bilirubin 0.6 mg/dL (0.15-1.2); Total Protein 6.9 g/dL (6.6-8.7)
[2022-12-09 21:33] LABS: Potassium 2.9 mmol/L (3.5-5.1)
[2022-12-09] MEDS: potassium chloride oral liq 20 mEq/15 mL UDC 60 MEQ PO (21:42)
[2022-12-09] MEDS: meclizine 25 mg tablet PO (21:42)
[2022-12-09 22:48] LABS: Magnesium 1.3 mg/dL (1.7-2.3)
[2022-12-09] MEDS: morphine 4 mg/mL SDV 1 mL IVP (23:22)
[2022-12-09] MEDS: magnesium sulfate premix 2 GM/50 ML PIGGYBACK IV (23:23)
[2022-12-09 23:27] LABS: Troponin 5 2HR 13.37 ng/L (0-15)
[2022-12-10 00:02] LABS: Troponin 5 2HR Delta -0.63 ABS# (0-10)
[2022-12-10 00:52] VITALS: BP 132/94; PULSE 93; RESP 18; O2SAT 97
--- NOTE | 2022-12-10 10:23 | PC.SOCIAL ---
Addendum entered by Rosemarie Lechuga 01/10/23 07:03: This was cancelled Addendum entered by oRsemarie Lechuga 12/27/22 14:29: Patient has an outpatient CT head scheduled for Wednesday, January 04, 2023 at 12:00. Original Note: ORders for outpatient head CT faxt to centralized scheduling at this time.
== END 2022-12-10 00:57 | disposition home or self-care (01) ==
PROVIDERS: Emergency Medicine; Emergency Provider Emergency Medicine; PCP Family Medicine Adult Medicine
DX: R07.9 Chest pain, unspecified (principal); R42 Dizziness and giddiness; R51.9 Headache, unspecified; F17.220 Nicotine dependence, chewing tobacco, uncomplicated; I25.10 Atherosclerotic heart disease of native coronary artery without angina pectoris; I10 Essential (primary) hypertension; G20 Parkinson's disease; Z86.73 Personal history of transient ischemic attack (TIA), and cerebral infarction without residual deficits
CPT/HCPCS: 36415; 70450; 71045; 80053; 83735; 84484; 85025; 93005; 96365; 96375; 99285; J2270; J3475; J8597

== ENCOUNTER 2022-12-27 07:00 | Day surgery (SDC) | payer MEDICARE, MEDICAID, SELFPAY ==
[2022-12-25 09:26] VITALS: BMI 29.1
[2022-12-27 07:19] VITALS: BP 128/94; PULSE 101; RESP 18; TEMP 36.2; O2SAT 98
--- NOTE | 2022-12-27 07:39 | PC.NURSE ---
0725 - Pt states you only get one chance to start IV . IV started in right hand on first stick. Pt complaining that it was hurting and demanding that it be taken out. explained to pt that it was a good IV and I had gotten it on the first stick. Pt. states just draw the blood work and take it out. Pt agitated . IV discont. after blood drawn.
[2022-12-27 07:53] LABS: Blood Urea Nitrogen 11 mg/dL (6-20); Carbon Dioxide 24 mmol/L (22-29); Chloride 105 mmol/L (98-107); Glomerular Filtration Rate 99.3 mL/min (90-130); Glucose 104 mg/dL (65-115); Osmolality Calculated 290 mOsm/kg (285-295); Sodium 140 mmol/L (136-145)
[2022-12-27 08:17] LABS: Anion Gap 14.5 (5-19); Potassium 3.5 mmol/L (3.5-5.1)
--- NOTE | 2022-12-27 08:24 | P.ANESASSM_ITS ---
Pre-Anesthetic Assessment Height/Weight: Height 1.65 m Weight 79.379 kg Temp Pulse Resp BP Pulse Ox O2 Del Method 97.1 F L 101 H 18 128/94 98 Room Air 12/27/22 07:19 12/27/22 07:19 12/27/22 07:19 12/27/22 07:19 12/27/22 07:19 12/27/22 07:19 Preop Diagnosis: Screening Operation Date: 12/27/22 08:30 Proposed Procedures p [id number] egd [id number] colon R13.10,Z12.11(Not Applicable) - Onur Tomas DO s Colonoscopy(Not Applicable) - Onur Tomas DO Familial anesthetic complications: None Was Beta Todd taken within 24 hours: Yes Was Clonidine taken within 24 hours: N/A Last intake: Intake Last Liquid Date 12/26/22 Last Liquid Time 00:00 Last Solid Date 12/26/22 Last Solid Time 11:00 Social Tobacco (Chews, last used yesterday, vapes daily) and No alcohol (Quit 16 years ago) Exam alert, oriented x 3, clear to auscultation bilaterally and regular rate & rhythm Airway Submandibular: within normal limits Cervical ROM: Other (Decreased ROM) Mallampati: Class II Comments: Comments: Several missing teeth History/ROS No significant history except as noted and No significant complaints Pulmonary Cough (Chronic) CV/HEM Coronary Artery Disease, Hypertension, Myocardial Infarction (Patient states he has but no intervention) and Palpitations Chronic Renal Insufficiency Dilaysis in 2014 for 4 months Hepatic None reported GI Gastroesophageal Reflux Disease (None this morning, controlled with meds) Metabolic None reported Musc/skel Osteoarthritis/DJD and Rheumatoid Arthritis Neuropsych Anxiety, Depression, Neuropathy and Transient Ischemic Attack (2009, no chronic deficits) Parkinsons Fell 2 weeks ago and hit his head. CT scan performed and it was negative Anesthetic Plan ASA status: 3 Anesthesia: Anesthesia Evaluation, General and MAC Risk of > 500 ml blood loss (7ml/kg in children): No Medications/Allergies Home Medications Medication Instructions Recorded Confirmed Last Taken Type acetaminophen 500 mg tablet 1,000 mg PO Q6H PRN Pain 06/04/22 12/27/22 12/26/22 History omeprazole 40 mg capsule,delayed 40 mg PO QAM #90 caps 06/12/22 12/27/22 12/26/22 Rx release carbidopa 25 mg-levodopa 250 mg 1.5 - 2 tab PO Q6H 10/31/22 12/27/22 12/27/22 History tablet metoprolol tartrate 50 mg tablet 50 mg PO BID #180 tabs 11/05/22 12/27/22 12/27/22 Rx prednisone 20 mg tablet See Rx Instructions .Route .COMPLEX 12/04/22 12/27/22 12/26/22 History potassium chloride 10 mEq 10 meq PO DAILY #7 tabs 12/10/22 12/27/22 Unknown Rx tablet,extended release amlodipine 5 mg tablet 10 mg PO DAILY 12/25/22 12/27/22 Unknown History colchicine 0.6 mg tablet (Colcrys) 0.6 mg PO DAILY PRN gout 12/25/22 12/27/22 Unknown History Allergies Allergy/AdvReac Type Severity Reaction Status Date / Time allopurinol Allergy Unknown Unknown Verified 12/25/22 09:22 ketorolac [From Toradol] Allergy Unknown Unknown Verified 12/25/22 09:22 orphenadrine [From Norflex] Allergy Unknown Unknown Verified 12/25/22 09:22 promethazine [From Phenergan] Allergy Unknown Unknown Verified 12/25/22 09:22 tramadol Allergy Unknown Unknown Verified 12/25/22 09:22 hydrocodone Allergy Unknown Verified 12/25/22 09:22 methadone Allergy Unknown Verified 12/25/22 09:22 oxycodone Allergy Unknown Verified 12/25/22 09:22 narcotics Allergy Severe Unknown Uncoded 12/25/22 09:22 [facility] Anesthesia Medical History (Updated 12/26/22 @ 09:51 by Wali Moon MD) Anxiety about health Anxiety and depression CAD (coronary artery disease) Chewing tobacco nicotine dependence Age [age] (currently) Chronic right shoulder pain DDD (degenerative disc disease) Decreased glomerular filtration rate (GFR) Fusion of lumbar spine Gout Head injury due to trauma Hearing loss Hypertension Hypokalemia Knee pain, right Left foot infection Migraines Osteoarthritis Pain in left ankle Parkinsons disease Polyp of esophagus Polyp of tongue Right foot infection Swelling of joint of both wrists Swelling of left ankle joint TIA (transient ischemic attack) Surgical History History of back surgery x6 different surgeries on the spine History of esophagogastroduodenoscopy (EGD) 2009 History of total knee arthroplasty Left TKA x2 revision needed due to loosening of hardware, no history of infe ction Hx of bilateral hip replacements 3 on right hip and 0 left Hx of colonoscopy with polypectomy 2009 S/P cervical spinal fusion Family History Father Stroke Heart attack Brother Hypertension Sister Heart attack Social History Smoking and tobacco status: current every day smoker (chewing) smokeless tobacco Smokeless tobacco user: chewing tobacco Alcohol intake: former Desire information about alcohol rehabilitation?: No Substance/Drug Use: current Substance/Drug use frequency: other Other substance/drug use details: medical marijuana Desire information about substance/drug rehabilitation?: No Caregiver/support person: No Lives independently: Yes Household members: none Marital status: Single Highest education level completed: Some College, No Degree service: No Current occupational status: retired and disabled Do you think of yourself as: Straight/Heterosexual Current gender identity: Male Data Anesthesia 12/27/22 07:30 BMP 12/27/22 07:30 Sodium 140 Potassium 3.5 Chloride 105 Carbon Dioxide 24 BUN 11 Creatinine 0.8 Glucose 104 Calcium 9.0 Cardiac Studies: Sestamibi Stress Test (Cardiology) 04/05 Holter Monitor 07/06/22
[2022-12-27] MEDS: sodium chloride 0.9% 1,000 ML 30 ML IV (08:42)
--- NOTE | 2022-12-27 08:54 | W.PM.OPSUD ---
Surgery/Procedure H&P Update DATE OF PROCEDURE: December 27, 2022 DATE H&P PERFORMED: 11/29/22 H&P UPDATE INFORMATION: I have reviewed H&P completed within last 30 days, I have examined patient prior to procedure and Changes to prior documentation as noted here CHANGES TO PREVIOUS DOCUMENTATION: EGD will be done with possible balloon dilation as well PREOP DIAGNOSIS: Screening PLANNED PROCEDURE: Operation Date: 12/27/22 08:30 Proposed Procedures p [id number] egd [id number] colon R13.10,Z12.11(Not Applicable) - DO chalo Lomeli Colonoscopy(Not Applicable) - Onur Tomas DO
[2022-12-27 09:28] VITALS: BP 99/47; PULSE 80; RESP 12; TEMP 36.1; O2SAT 93
[2022-12-27 09:45] VITALS: BP 102/69; PULSE 80; RESP 16; O2SAT 92
--- NOTE | 2022-12-27 09:45 | ANE.PACU2 ---
Inpatient post-anesthesia follow up: Airway intact: Yes Vital signs: Temperature 97 F Pulse Rate 75 Respiratory Rate 18 Blood Pressure 102/71 Pulse Oximetry 99 Oxygen Delivery Me thod Room Air Oxygen Flow Rate Fraction of Inspir ed Oxygen Hydration adequate: Yes Nausea and vomiting: Yes Pain level: 1 Mental status: Baseline
[2022-12-27 10:00] VITALS: BP 102/71; PULSE 75; RESP 18; O2SAT 99
== END 2022-12-27 10:14 | disposition home or self-care (01) ==
PROVIDERS: Anesthesiology; PCP Family Medicine Adult Medicine; Visit Provider Surgery
PROC: 0DJ08ZZ Inspection of Upper Intestinal Tract, Via Natural or Artificial Opening Endoscopic (ICD-10-PCS; CPT 43235; principal; 2022-12-27 08:30)
PROC: 0DJD8ZZ Inspection of Lower Intestinal Tract, Via Natural or Artificial Opening Endoscopic (ICD-10-PCS; CPT 45378; 2022-12-27 08:30)
DX: Z12.11 Encounter for screening for malignant neoplasm of colon (principal); R13.10 Dysphagia, unspecified; I25.10 Atherosclerotic heart disease of native coronary artery without angina pectoris; N18.9 Chronic kidney disease, unspecified; K21.9 Gastro-esophageal reflux disease without esophagitis; F41.9 Anxiety disorder, unspecified; F32.A Depression, unspecified; F17.290 Nicotine dependence, other tobacco product, uncomplicated; I12.9 Hypertensive chronic kidney disease with stage 1 through stage 4 chronic kidney disease, or unspecified chronic kidney disease; K57.30 Diverticulosis of large intestine without perforation or abscess without bleeding; D12.5 Benign neoplasm of sigmoid colon
CPT/HCPCS: 43239; 45385; 80048; 88305; J2704; J7030

== ENCOUNTER 2022-12-30 06:32 | Emergency (ER) | payer MEDICARE, MEDICAID, SELFPAY ==
[2022-12-30 06:34] VITALS: BP 152/90; PULSE 104; RESP 24; TEMP 36.7; O2SAT 97; BMI 29.1
--- NOTE | 2022-12-30 07:07 | ED_ITS ---
HPI - Neuro Symptoms/Deficit General: Chief Complaint: Neuro Symptoms/Deficit Stated Complaint: TREMORS Time Seen by Provider: 12/30/22 06:36 History of Present Illness: Patient presents to the ER with complaints of full body tremors since waking up this morning. Patient does have a history of Parkinson's disease and tremors but he states these are worse than normal. Patient cannot hold still long enough to get a blood pressure reading and a lab draw that he goes back into full body shaking and jerking but states alert awake and coherent during the entire process. Patient also states he awoke with a headache. Patient has been seen several times in ER here recently for a myriad of symptoms and has had multiple head CTs performed. As well as been seen several times by his primary care doctor for anxiety. Patient just recently had a endoscopy performed here which the patient said was essentially negative. Review of Systems General: Reports: 10 or more systems reviewed and unremarkable except in HPI and below PFSH ED PFSH: Medical History Anxiety about health Anxiety and depression CAD (coronary artery disease) Chewing tobacco nicotine dependence Age [age] (currently) Chronic right shoulder pain DDD (degenerative disc disease) Decreased glomerular filtration rate (GFR) Fusion of lumbar spine Gout Head injury due to trauma Hearing loss Hypertension Hypokalemia Knee pain, right Left foot infection Migraines Osteoarthritis Pain in left ankle Parkinsons disease Polyp of esophagus Polyp of tongue Right foot infection Swelling of joint of both wrists Swelling of left ankle joint Syncope TIA (transient ischemic attack) Surgical History History of back surgery x6 different surgeries on the spine History of esophagogastroduodenoscopy (EGD) 2010 History of total knee arthroplasty Left TKA x2 revision needed due to loosening of hardware, no history of infection Hx of bilateral hip replacements 3 on right hip and 0 left Hx of colonoscopy with polypectomy 2010 S/P cervical spinal fusion Family History Father Stroke Heart attack Brother Hypertension Sister Heart attack Social History Smoking and tobacco status: current every day smoker (chewing) smokeless tobacco Smokeless tobacco user: chewing tobacco Alcohol intake: former Desire information about alcohol rehabilitation?: No Substance/Drug Use: current Substance/Drug use frequency: other Other substance/drug use details: medical marijuana Desire information about substance/drug rehabilitation?: No Caregiver/support person: No Lives independently: Yes Household members: none Marital status: Single Highest education level completed: Some College, No Degree service: No Current occupational status: retired and disabled Do you think of yourself as: Straight/Heterosexual Current gender identity: Male Physical Exam Const: COMMON NORMALS: no acute distress, average body habitus, patient oriented x3, no limitations, healthy appearing, alert and well nourished HENMT: COMMON NORMALS: normocephalic, atraumatic, hearing grossly normal bilaterally, Normal external nose present and moist oral mucous membranes HEAD & SCALP: normocephalic and atraumatic NOSE: Normal external nose present Eye: COMMON NORMALS: Equal, round and reactive pupils present, EOMs intact bilaterally, conjunctivae normal and no scleral icterus CONJUNCTIVA: Yes conjunctivae normal PUPIL: Yes Equal, round and reactive pupils present Neck/C-Spine: COMMON NORMALS: full ROM, no lymphadenopathy, supple, no meningeal signs, no JVD and Thyroid normal THYROID: Thyroid normal Chest: COMMONS NORMALS: normal inspection of the chest and normal palpation of entire chest wall Resp: COMMON NORMALS: normal respiratory effort, No retractions, No use of accessory muscles and clear to auscultation bilaterally AUSCULTATION: clear to auscultation bilaterally Cardio: COMMON NORMALS: no JVD, regular rate, regular rhythm, S1 normal heart sound present, S2 normal heart sound present, No gallops present (Cardio), No clicks present (Cardio), No murmurs present (Cardio) and No rub (Cardio) RATE: regular rate RHYTHM: regular rhythm HEART SOUNDS: S1 normal heart sound present and S2 normal heart sound present GI: COMMON NORMALS: Normal to inspection, nondistended, normoactive bowel sounds present Neuro: COMMON NORMALS: patient oriented x3 SENSORIUM/ORIENTATION: Yes alert MENINGEAL SIGNS: Yes no meningeal signs OTHER: Patient appears to have full body tremor which is spastic and jerking in nature however does appear to be controlled by the patient because he can stop it when he wants to. Course Vital Signs: Vital signs: Vital Signs Temperature 98.1 F 12/30/22 06:34 Pulse Rate 117 H 12/30/22 08:30 Respiratory Rate 29 H 12/30/22 07:47 Blood Pressure 136/93 12/30/22 08:30 Pulse Oximetry 93 12/30/22 08:30 Oxygen Delivery Me thod Room Air 12/30/22 07:47 MDM - Neuro Symptoms/Deficit Medical Decision Making Patient presents to the ER with full body type tremors from waking up this morning. Patient does have Parkinson's but he says these are a lot worse. However patient cannot stop these when he wants to such as blood pressure draws EKGs and lab work. Lab work was obtained which showed patient is still hypokalemic and hypomagnesemic. Patient will be placed back on potassium and magnesium supplementation and is to follow-up with his primary care practitioner in the next week. Differential Diagnosis Unlikely carpal tunnel syndrome, convulsions, delirium, subarachnoid hemorrhage, peripheral neuropathy, cerebrovascular accident, multiple sclerosis or transient cerebral ischemia Medical Records I reviewed the patient's medical records. Lab Data I reviewed the patient's lab results. 12/30/22 08:42 12/30/22 08:42 Laboratory Results WBC 12.6 10^3/uL (4.0-10.0) H 12/30/22 08:42 Corrected WBC Cancelled 12/30/22 06:45 RBC 4.98 10^6/uL (4.1-5.3) 12/30/22 08:42 Hgb 14.3 g/dL (11.7-16.6) 12/30/22 08:42 Hct 44.7 % (42.0-52.0) 12/30/22 08:42 MCV 89.8 fl (80-94) 12/30/22 08:42 MCH 28.7 pg (28.0-34.0) 12/30/22 08:42 MCHC 32.0 g/dL (30.0-36.0) 12/30/22 08:42 RDW 16.1 % (12.1-15.1) H 12/30/22 08:42 Plt Count 309 10^3/cmm (130-400) 12/30/22 08:42 MPV 8.9 fL (7.4-10.4) 12/30/22 08:42 Gran % Cancelled 12/30/22 06:45 Neut % (Auto) 71.4 % 12/30/22 08:42 Lymph % (Auto) 19.2 % 12/30/22 08:42 [place] % (Auto) 7.4 % 12/30/22 08:42 Eos % (Auto) 0.1 % 12/30/22 08:42 Baso % (Auto) 0.3 % 12/30/22 08:42 Neut # (Auto) 9.01 10^3/uL (1.8-7.7) H 12/30/22 08:42 Lymph # (Auto) 2.4 10^3/uL (0.8-4.8) 12/30/22 08:42 [place] # (Auto) 0.9 10^3/uL (0.2-0.9) 12/30/22 08:42 Eos # (Auto) 0.0 10^3/uL (0.0-0.8) 12/30/22 08:42 Baso # (Auto) 0.0 10^3/uL (0.0-0.1) 12/30/22 08:42 Absolute Gran (auto) Cancelled 12/30/22 06:45 Nucleated RBC % (auto) 0 % 12/30/22 08:42 Nucleated RBCs # 0.0 /100WBC 12/30/22 08:42 Sodium 141 mmol/L (136-145) 12/30/22 08:42 Potassium 3.1 mmol/L (3.5-5.1) L 12/30/22 08:42 Chloride 102 mmol/L (98-107) 12/30/22 08:42 Carbon Dioxide 27 mmol/L (22-29) 12/30/22 08:42 Anion Gap 15.1 (5-19) 12/30/22 08:42 BUN 9 mg/dL (6-20) 12/30/22 08:42 Creatinine 0.8 mg/dL (0.7-1.2) 12/30/22 08:42 GFR Calculation 99.3 mL/min (90-130) 12/30/22 08:42 Glucose 99 mg/dL (65-115) 12/30/22 08:42 Calculated Osmolality 291 mOsm/kg (285-295) 12/30/22 08:42 Calcium 9.0 mg/dL (8.5-10.5) 12/30/22 08:42 Magnesium 1.2 mg/dL (1.7-2.3) L 12/30/22 08:42 Total Bilirubin 0.4 mg/dL (0.15-1.2) 12/30/22 08:42 AST 14 U/L (0-40) 12/30/22 08:42 ALT < 5 U/L (0-41) 12/30/22 08:42 Alkaline Phosphatase 73 U/L (40-130) 12/30/22 08:42 Total Protein 6.4 g/dL (6.6-8.7) L 12/30/22 08:42 Albumin 3.4 g/dL (3.5-5.2) L 12/30/22 08:42 Globulin 3.0 g/dL (1.3-4.6) 12/30/22 08:42 EKG Data EKG 1: I personally reviewed and interpreted this EKG as follows: EKG interpretation date: 12/30/22 EKG interpretation time: 07:51 Prior EKG tracings: not available for review Interpretation: EKG showed ventricular rate of 106 bpm, NC interval 125, QRS duration 78, QTc 352, sinus tachycardia, nonspecific T wave abnormality. Discharge Plan Discharge Patient Disposition: Home Clinical Impression: Acute hypokalemia, Hypomagnesemia, Coarse tremors Condition: Stable Prescriptions: New magnesium oxide 500 mg capsule 500 mg PO BID Qty: 20 0RF potassium chloride 20 mEq tablet extended release 20 meq PO BID Qty: 20 0RF No Action omeprazole 40 mg capsule,delayed release(DR/EC) 40 mg PO QAM Qty: 90 1RF metoprolol tartrate 50 mg tablet 25 mg PO BID Qty: 90 4RF amlodipine 5 mg tablet 5 mg PO DAILY Hold Instructions: Doctor's Order prednisone 20 mg tablet 20 mg PO DAILY potassium chloride 10 mEq tablet extended release 10 meq PO DAILY Qty: 7 0RF acetaminophen 500 mg Tablet 1,000 mg PO Q6H PRN (Reason: Pain) carbidopa-levodopa 25-250 mg tablet 1.5 - 2 tab PO Q6H colchicine [Colcrys] 0.6 mg tablet 0.6 mg PO DAILY PRN (Reason: gout) Discharge Orders: Discharge ED (Routine); Ordered 12/30/22 Ordered By: Abdiaziz Cruz Referrals: Wali Moon MD [Primary Care Provider] - 1 week Patient Instructions: Hypokalemia, Hypomagnesemia (ED), Tremors (ED) Activity Restrictions/Additional Instructions: Please take all your medication as directed. Please follow-up with your family practice doctor in 7 days or sooner as needed for recheck of your potassium and magnesium. Coding Level of Care Code ED Catalog Library Assistant for Mu Pressley
[2022-12-30 07:47] VITALS: BP 144/77; PULSE 112; RESP 29; O2SAT 96
[2022-12-30] MEDS: LORazepam 2 mg/mL INJ 1 mL 1 MG IM (07:47)
--- NOTE | 2022-12-30 07:51 | ECG_ITS ---
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 Measurements Intervals [place] Rate: 106 P: 51 MN: 125 QRS: 14 QRSD: 78 T: 29 QT: 290 QTc: 386 Interpretive Statements SINUS TACHYCARDIA NONSPECIFIC T-WAVE ABNORMALITY ABNORMAL RHYTHM ECG INTERPRETATION BASED ON A DEFAULT AGE OF 40 YEARS Compared to ECG 12/09/2022 20:42:27 T-wave abnormality now present Sinus rhythm no longer present Electronically Signed On 12-30-2022 21:01:26 CDT by Kalia Duff M.D. [id number] f
[2022-12-30 08:30] VITALS: BP 136/93; PULSE 117; O2SAT 93
[2022-12-30 08:55] LABS: Basophils % 0.3 %; Eosinophils % 0.1 %; Hematocrit 44.7 % (42.0-52.0); Hemoglobin 14.3 g/dL (11.7-16.6); Lymphocytes # 2.4 10^3/uL (0.8-4.8); Lymphocytes % 19.2 %; Mean Corpuscular Hemoglobin 28.7 pg (28.0-34.0); Mean Corpuscular Volume 89.8 fl (80-94); Mean Platelet Volume 8.9 fL (7.4-10.4); Monocytes # 0.9 10^3/uL (0.2-0.9); Monocytes % 7.4 %; Neutrophils # 9.01 10^3/uL (1.8-7.7); Neutrophils % 71.4 %; Nucleated Red Blood Cells % 0 %; Platelet Count 309 10^3/cmm (130-400); Red Blood Count 4.98 10^6/uL (4.1-5.3); Red Cell Distribution Width 16.1 % (12.1-15.1); White Blood Count 12.6 10^3/uL (4.0-10.0)
[2022-12-30 09:13] LABS: Alanine Aminotransferase < 5 U/L (0-41); Albumin Level 3.4 g/dL (3.5-5.2); Alkaline Phosphatase 73 U/L (40-130); Aspartate Amino Transferase 14 U/L (0-40); Blood Urea Nitrogen 9 mg/dL (6-20); Carbon Dioxide 27 mmol/L (22-29); Chloride 102 mmol/L (98-107); Glomerular Filtration Rate 99.3 mL/min (90-130); Glucose 99 mg/dL (65-115); Magnesium 1.2 mg/dL (1.7-2.3); Osmolality Calculated 291 mOsm/kg (285-295); Sodium 141 mmol/L (136-145); Total Bilirubin 0.4 mg/dL (0.15-1.2); Total Protein 6.4 g/dL (6.6-8.7)
[2022-12-30 09:15] LABS: Anion Gap 15.1 (5-19); Potassium 3.1 mmol/L (3.5-5.1)
--- NOTE | 2022-12-30 09:59 | PC.NURSE ---
PT REFUSING TO ACCEPT DISCHARGE FROM THE ER. DR. DING DISCUSSED PT CARE AND OUTPATIENT TX WITH PT. PT INSTRUCTED TO FOLLOW UP WITH PCP AND TAKE MEDICATIONS PRESCRIBED.
[2022-12-30 10:00] VITALS: BP 156/88; PULSE 115; RESP 20
--- NOTE | 2022-12-30 10:09 | PC.NURSE ---
PT refusing DC at this time after consulting with Physician we will run further labs and reassess DC at later time.
[2022-12-30 10:28] LABS: Troponin(5th) Baseline 9 ng/L (0-15)
[2022-12-30 10:41] LABS: Troponin 5 2HR 9.76 ng/L (0-15)
[2022-12-30 10:55] LABS: Troponin 5 2HR Delta 0.76 ABS# (0-10)
== END 2022-12-30 11:22 | disposition home or self-care (01) ==
PROVIDERS: Emergency Provider Emergency Medicine; PCP Family Medicine Adult Medicine
DX: G25.2 Other specified forms of tremor (principal); E87.6 Hypokalemia; E83.42 Hypomagnesemia; F17.220 Nicotine dependence, chewing tobacco, uncomplicated; I25.10 Atherosclerotic heart disease of native coronary artery without angina pectoris; I10 Essential (primary) hypertension; G20 Parkinson's disease; Z86.73 Personal history of transient ischemic attack (TIA), and cerebral infarction without residual deficits
CPT/HCPCS: 36415; 80053; 83735; 84484; 85025; 93005; 96372; 99284; J2060

== ENCOUNTER 2023-01-03 23:07 | Emergency (ER) | payer MEDICARE, MEDICAID, SELFPAY ==
--- NOTE | 2023-01-03 23:12 | XRR_ITS ---
PROCEDURE INFORMATION: Exam: XR Chest Exam date and time: 01/03/2023 11:23 PM Age: 57 years old Clinical indication: Injury or trauma; Fall; Crushing TECHNIQUE: Imaging protocol: Radiologic exam of the chest. Views: 1 view. COMPARISON: CR (CHEST, ) 12/09/2022 9:17 PM FINDINGS: Lungs: Unremarkable. No consolidation. Pleural spaces: Unremarkable. No pleural effusion. No pneumothorax. Heart/Mediastinum: Unremarkable. No cardiomegaly. Bones/joints: Unremarkable. XR/XR chest 1V portable [id number] IMPRESSION: No acute findings.
--- NOTE | 2023-01-03 23:12 | XRR_ITS ---
PROCEDURE INFORMATION: Exam: XR Left Hip Exam date and time: 01/03/2023 11:21 PM Age: 57 years old Clinical indication: Injury or trauma; Fall; Crushing; Left; Hip TECHNIQUE: Imaging protocol: Radiologic exam of the left hip. Views: 2 or 3 views hip with pelvis when performed. COMPARISON: CR XR lumbar spine 2-3V* [id number] 12/30/2021 11:48 PM FINDINGS: Bones/joints: Unremarkable. No acute fracture. Soft tissues: Unremarkable. XR/XR hip LT 2-3V wo/w pel* [id number] IMPRESSION: No acute findings.
--- NOTE | 2023-01-03 23:12 | XRR_ITS ---
PROCEDURE INFORMATION: Exam: XR Cervical Spine Exam date and time: 01/03/2023 11:25 PM Age: 57 years old Clinical indication: Injury or trauma; Fall; Crushing; Prior surgery; Surgery date: 6+ months; Surgery type: Repair with plates TECHNIQUE: Imaging protocol: Radiologic exam of the cervical spine. Views: 2 or 3 views. COMPARISON: CT angio headneck* [id number] 10/02/2022 9:14 PM FINDINGS: Bones/joints: Surgical hardware in the mid to lower cervical and upper thoracic spine. Soft tissues: Unremarkable. XR/XR cervical spine 3V* [id number] IMPRESSION: 1. Negative for fracture or dislocation. 2. Surgical hardware in the mid to lower cervical and upper thoracic spine.
[2023-01-03 23:13] VITALS: BP 163/102; PULSE 100; RESP 18; TEMP 36.8; O2SAT 96; BMI 38.2
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
[2023-01-03 23:18] VITALS: BP 151/95; PULSE 86; O2SAT 96
[2023-01-03] MEDS: acetaminophen 325 mg Tablet 650 MG PO (23:37)
[2023-01-04] MEDS: dexamethasone 10 mg/mL INJ IM (00:31)
[2023-01-04 00:54] VITALS: BP 163/103; PULSE 82; RESP 18; O2SAT 98
== END 2023-01-04 01:01 | disposition home or self-care (01) ==
PROVIDERS: Emergency Provider Emergency Medicine; PCP Family Medicine Adult Medicine
DX: S16.1XXA Strain of muscle, fascia and tendon at neck level, initial encounter (principal); F17.220 Nicotine dependence, chewing tobacco, uncomplicated; Z96.643 Presence of artificial hip joint, bilateral; I25.10 Atherosclerotic heart disease of native coronary artery without angina pectoris; I10 Essential (primary) hypertension; G20 Parkinson's disease; Z86.73 Personal history of transient ischemic attack (TIA), and cerebral infarction without residual deficits; W18.39XA Other fall on same level, initial encounter
CPT/HCPCS: 71045; 72040; 73502; 96372; 99284; J1100

== ENCOUNTER 2023-01-04 08:13 | Emergency (ER) | payer MEDICARE, MEDICAID, SELFPAY ==
[2023-01-04 08:16] VITALS: BP 184/113; PULSE 96; RESP 18; TEMP 36.7; O2SAT 98
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
--- NOTE | 2023-01-04 08:39 | ECG_ITS ---
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 Measurements Intervals [place] Rate: 81 P: 61 CT: 156 QRS: 7 QRSD: 87 T: 30 QT: 376 QTc: 437 Interpretive Statements SINUS RHYTHM POSSIBLE LEFT VENTRICULAR HYPERTROPHY [VOLTAGE CRITERIA PLUS LAE OR QRS WIDENING] Compared to ECG 12/30/2022 07:51:00 Sinus tachycardia no longer present T-wave abnormality no longer present Electronically Signed On 01-04-2023 11:42:13 CDT by Kelechi Solitario M.D. [id number]
--- NOTE | 2023-01-04 08:39 | CT_ITS ---
WS: [id number] CT HEAD NONCONTRAST HISTORY: headache, head injury TECHNIQUE: Contiguous axial imaging performed through the brain in 2.5 mm imaging. Bone and soft tiss ue windows. Sagittal and coronal reformats reviewed. All CT scans at [facility] use at least one of these dose optimization techniques: automated exposure control; mA and/or kV adjustment per pa tient size (includes targeted exams where dose is matched to clinical indication); or iterative recon struction. DLP: 1340.85 mGy.cm COMPARISON: 12/09/2022 No acute intracranial hemorrhage, midline shift or mass effect. Moderate atrophy is symmetric bilaterally involving the cerebrum and cerebellum. Similar to the prior study. No acute infarct. No loss of [place]-white matter. Ventricles: Normal size with no hydrocephalus. No inferior displacement of cerebellar tonsils. Paranasal sinuses: As visualized are clear. Mastoid air cells: Well pneumatized. Calvarium and scalp: Skull is intact with no soft tissue edema or swelling. CT/CT head wo con* [id number] IMPRESSION: 1. No acute intracranial hemorrhage or edema. 2. Moderate cerebral and cerebellar atrophy more advanced than typical of this age group. No acute findings.
--- NOTE | 2023-01-04 08:39 | XR_ITS ---
WS: [id number] Exam: XR chest 1V portable [id number] Date/Time of Exam: 01/04/2023 8:51 AM Reason For Exam: cp Comparison 01/03/2023. The lungs are clear and fully expanded. Normal cardiomediastinal silhouette. Regional bony structures are normal. Fusion hardware seen in the cervical and upper T-spine. Monitoring leads superimpose the chest. XR/XR chest 1V portable [id number] IMPRESSION: 1. Negative chest.
--- NOTE | 2023-01-04 08:39 | CT_ITS ---
WS: [id number] CT CERVICAL SPINE HISTORY: headache, head injury TECHNIQUE: Contiguous 2.0 mm axial imaging performed through the entire cervical spine. Sagittal and coronal reformats also performed. All CT scans at [facility] use at least one of these dose o ptimization techniques: automated exposure control; mA and/or kV adjustment per patient size (include s targeted exams where dose is matched to clinical indication); or iterative reconstruction. DLP: 1340.85 mGy.cm COMPARISON: Radiographs 01/03/2023 Mild RIGHT curvature cervical spine. Anterior cervical fusion at C6-7. Additional posterior cervical hardware from C4 through T1. Facet joints are narrowed throughout. Osseous interbody fusion at C4-5 a nd C5-6. C2-C3: Normal. C3-C4: Osteophytic ridging. Mild foraminal narrowing. C4-C5: No stenosis. C5-C6: Normal. C6-C7: Central canal and foramina are obscured by artifact from the hardware. C7-T1: Normal. Paravertebral soft tissues are normal. CT/CT cervical spin wo con* [id number] IMPRESSION: 1. Anterior and posterior cervical fusion hardware as described above. 2. No acute fractures are identified. 3. Facet joint disc spaces are narrowed.
[2023-01-04] MEDS: metoclopramide 5 mg/mL SDV 2 mL 10 MG IVP (09:02)
[2023-01-04] MEDS: diphenhydrAMINE 50 mg/mL SDV 1mL 25 MG IVP (09:02)
[2023-01-04 09:29] LABS: Basophils % 0.2 %; Hematocrit 49.5 % (42.0-52.0); Hemoglobin 15.6 g/dL (11.7-16.6); Lymphocytes # 0.7 10^3/uL (0.8-4.8); Lymphocytes % 5.2 %; Mean Corpuscular HGB Conc 31.5 g/dL (30.0-36.0); Mean Corpuscular Volume 88.7 fl (80-94); Mean Platelet Volume 9.4 fL (7.4-10.4); Monocytes # 0.1 10^3/uL (0.2-0.9); Monocytes % 0.5 %; Neutrophils # 11.99 10^3/uL (1.8-7.7); Neutrophils % 92.9 %; Nucleated Red Blood Cells % 0 %; Platelet Count 340 10^3/cmm (130-400); Red Blood Count 5.58 10^6/uL (4.1-5.3); Red Cell Distribution Width 16.1 % (12.1-15.1); White Blood Count 12.9 10^3/uL (4.0-10.0)
[2023-01-04 09:45] VITALS: BP 152/99; PULSE 90; RESP 23; O2SAT 94
[2023-01-04] MEDS: LORazepam 0.5 mg Tablet PO (09:47)
--- NOTE | 2023-01-04 09:49 | PC.PHAR ---
PT HAS 2 POTASSIUM CHLORIDE RX'S. MOST RECENT IS 20 MEQ. PT STATES HE HAS NOT PICKED IT UP. [facility] HAS NOT FILLED. 01/03/23
[2023-01-04 09:58] LABS: Troponin(5th) Baseline 7 ng/L (0-15)
[2023-01-04 10:03] LABS: Alanine Aminotransferase < 5 U/L (0-41); Albumin Level 4.2 g/dL (3.5-5.2); Alkaline Phosphatase 80 U/L (40-130); Blood Urea Nitrogen 11 mg/dL (6-20); Calcium 9.5 mg/dL (8.5-10.5); Carbon Dioxide 24 mmol/L (22-29); Chloride 99 mmol/L (98-107); Globulin 2.7 g/dL (1.3-4.6); Glomerular Filtration Rate 86.7 mL/min (90-130); Glucose 205 mg/dL (65-115); Lipase 25 U/L (13-60); NT Pro B Type Natriuretic Pept 251 pg/mL (0-125); Osmolality Calculated 295 mOsm/kg (285-295); Sodium 140 mmol/L (136-145); Total Bilirubin 0.5 mg/dL (0.15-1.2); Total Protein 6.9 g/dL (6.6-8.7)
[2023-01-04 10:04] LABS: Anion Gap 20.9 (5-19); Aspartate Amino Transferase 16 U/L (0-40); Potassium 3.9 mmol/L (3.5-5.1)
[2023-01-04] MEDS: carbidopa-levodopa 25-250mg Tablet 1 EACH PO (10:37)
[2023-01-04 10:45] VITALS: BP 152/105; PULSE 97; RESP 30; O2SAT 96
== END 2023-01-04 10:49 | disposition home or self-care (01) ==
PROVIDERS: Emergency Provider Emergency Medicine; PCP Family Medicine Adult Medicine
DX: S06.0X0A Concussion without loss of consciousness, initial encounter (principal); S00.83XA Contusion of other part of head, initial encounter; W19.XXXA Unspecified fall, initial encounter; R07.89 Other chest pain; R53.81 Other malaise
CPT/HCPCS: 70450; 71045; 72125; 80053; 83690; 83880; 84484; 85025; 93005; 96365; 96375; 99285; J1200; J2765; J3475

== ENCOUNTER → 2023-01-09 16:04 | Outpatient (BNVA) | payer MEDICARE, MEDICAID, SELFPAY | PROVIDERS: PCP Family Medicine Adult Medicine; Visit Provider Surgery | DX: Z09 Encounter for follow-up examination after completed treatment for conditions other than malignant neoplasm (principal) | CPT/HCPCS: 99212 ==

== ENCOUNTER 2023-01-16 13:28 | Emergency (ER) | payer MEDICARE, MEDICAID, SELFPAY ==
--- NOTE | 2023-01-16 13:29 | ED_ITS ---
HPI - Chest Pain General: Chief Complaint: Chest Pain Stated Complaint: Chest Pain/ SOB Time Seen by Provider: 01/16/23 13:29 History of Present Illness: Mr. Burden is a 57-year-old gentleman presented emergency department for evaluation of chest pain. Reports left-sided chest pain which is sharp and shooting towards his left arm left leg. Moderate in intensity without other typical cardiac features. Has had similar episodes. No other specific changes in health, exacerbating, or alleviating factors identified. Prior episodes: Yes Onset: during rest Pain location: left chest Pain radiation: left arm and other Quality: sharp Review of Systems General: Reports: 10 or more systems reviewed and unremarkable except in HPI and below PFSH ED PFSH: Medical History Anxiety and depression CAD (coronary artery disease) Chewing tobacco nicotine dependence Age [age] (currently) Chronic right shoulder pain DDD (degenerative disc disease) Decreased glomerular filtration rate (GFR) Fusion of lumbar spine Gout Hearing loss Hypertension Left foot infection Metatarsus adductus of both feet Migraines Osteoarthritis Parkinsons disease Pes planus of both feet Polyp of tongue Right foot infection Syncope TIA (transient ischemic attack) Surgical History History of back surgery x6 different surgeries on the spine History of esophagogastroduodenoscopy (EGD) 2009, repeat 12/27/2022 no abnormality, bx done History of total knee arthroplasty Left TKA x2 revision needed due to loosening of hardware, no history of infec tion Hx of bilateral hip replacements 3 on right hip and 0 left Hx of colonoscopy with polypectomy 2009, repeat 12/27/2022 with polyps, next in 5 years S/P cervical spinal fusion Status post surgery Family History Father Stroke Heart attack Brother Hypertension Sister Heart attack Social History Smoking and tobacco status: current every day smoker (chewing) smokeless tobacco Smokeless tobacco user: chewing tobacco Alcohol intake: former Desire information about alcohol rehabilitation?: No Substance/Drug Use: current Substance/Drug use frequency: other Other substance/drug use details: medical marijuana Desire information about substance/drug rehabilitation?: No Caregiver/support person: No Lives independently: Yes Household members: none Marital status: Single Highest education level completed: Some College, No Degree service: No Current occupational status: retired and disabled Do you think of yourself as: Straight/Heterosexual Current gender identity: Male Physical Exam Const: COMMON NORMALS: alert GENERAL APPEARANCE: cooperative and well developed HENMT: COMMON NORMALS: normocephalic and atraumatic HEAD & SCALP: nor mocephalic and atraumatic Eye: COMMON NORMALS: conjunctivae normal CONJUNCTIVA: Yes conjunctivae normal SCLERA: sclerae normal Neck/C-Spine: COMMON NORMALS: supple GENERAL: Yes trachea midline Resp: COMMON NORMALS: normal respiratory effort EFFORT & INSPECTION: Yes able to speak in complete sentences Cardio: COMMON NORMALS: regular rate and regular rhythm RATE: regular rate RHYTHM: regular rhythm GI: COMMON NORMALS: Soft to palpation PALPATION: Yes Soft to palpation and No Tenderness to palpation present (GI) Extremity: GENERAL: Yes normal exam except as noted and No edema Neuro: COMMON NORMALS: moves all extremities SENSORIUM/ORIENTATION: Yes alert and No Orientation impaired Psych: COMMON NORMALS: mental status grossly normal and Normal thought process present THOUGHT PROCESS: Normal thought process present Course Vital Signs: Vital signs: Vital Signs Temperature 98.2 F 01/16/23 13:46 Pulse Rate 106 H 01/16/23 17:36 Respiratory Rate 18 01/16/23 17:36 Blood Pressure 150/105 01/16/23 16:33 Pulse Oximetry 95 01/16/23 17:36 Oxygen Delivery Me thod Room Air 01/16/23 16:33 MDM - Chest Pain Medical Decision Making 57-year-old gentleman presenting the emergency department for chest pain. Exam as above. No focal neurologic deficits and patient is nontoxic. EKG demonstrates sinus tachycardia with no evidence of STEMI. Similar to prior. Labs with minimal leukocytosis improved from prior, normal hemoglobin. Mild evidence of dehydration or other metabolic stress. Negative range 2-hour delta troponin D-dimer is elevated. Chest x-ray with no lobar consolidation or pneumothorax. Chest CT initially ordered at CT a however apparently there was a problem with IV. Regardless no clear etiology of symptoms. Patient had cardiac cath on 05/02/2022 which showed no disease of the coronary arteries. Therefore patient does not require admission given absence of evidence of acute OR or further cardiac evaluation. He has numerous causes of potential symptoms though frequently has significant anxiety regarding his health. He is typically argumentative about discharge. The results of ED evaluation were given to the patient including prescriptions and/or symptomatic cares (if applicable) including appropriate and responsible use, followup plan, and return precautions. Medical Records I reviewed the patient's medical records. Lab Data I reviewed the patient's lab results. 01/16/23 13:39 01/16/23 13:39 Radiology Impressions Chest X-Ray 01/16/23 13:36 IMPRESSION: No acute findings. Chest CT 01/16/23 14:42 IMPRESSION: 1. Bilateral dependent atelectasis versus infiltrate. 2. Minimal coronary artery atherosclerotic calcifications suspected. 3. Negative for pulmonary embolus. Laboratory Results WBC 10.8 10^3/uL (4.0-10.0) H 01/16/23 13:39 RBC 5.20 10^6/uL (4.1-5.3) 01/16/23 13:39 Hgb 15.2 g/dL (11.7-16.6) 01/16/23 13:39 Hct 46.3 % (42.0-52.0) 01/16/23 13:39 MCV 89.0 fl (80-94) 01/16/23 13:39 MCH 29.2 pg (28.0-34.0) 01/16/23 13:39 MCHC 32.8 g/dL (30.0-36.0) 01/16/23 13:39 RDW 16.0 % (12.1-15.1) H 01/16/23 13:39 Plt Count 308 10^3/cmm (130-400) 01/16/23 13:39 MPV 10.4 fL (7.4-10.4) 01/16/23 13:39 Neut % (Auto) 77.9 % 01/16/23 13:39 Lymph % (Auto) 15.9 % 01/16/23 13:39 [place] % (Auto) 5.2 % 01/16/23 13:39 Eos % (Auto) 0.3 % 01/16/23 13:39 Baso % (Auto) 0.2 % 01/16/23 13:39 Neut # (Auto) 8.45 10^3/uL (1.8-7.7) H 01/16/23 13:39 Lymph # (Auto) 1.7 10^3/uL (0.8-4.8) 01/16/23 13:39 [place] # (Auto) 0.6 10^3/uL (0.2-0.9) 01/16/23 13:39 Eos # (Auto) 0.0 10^3/uL (0.0-0.8) 01/16/23 13:39 Baso # (Auto) 0.0 10^3/uL (0.0-0.1) 01/16/23 13:39 Nucleated RBC % (auto) 0 % 01/16/23 13:39 Nucleated RBCs # 0.0 /100WBC 01/16/23 13:39 D-Dimer 0.68 ug/mIFEU (0-0.59) H 01/16/23 13:39 Sodium 142 mmol/L (136-145) 01/16/23 13:39 Potassium 3.7 mmol/L (3.5-5.1) 01/16/23 13:39 Chloride 103 mmol/L (98-107) 01/16/23 13:39 Carbon Dioxide 21 mmol/L (22-29) L 01/16/23 13:39 Anion Gap 21.7 (5-19) H 01/16/23 13:39 BUN 12 mg/dL (6-20) 01/16/23 13:39 Creatinine 1.1 mg/dL (0.7-1.2) 01/16/23 13:39 GFR Calculation 68.8 mL/min (90-130) L 01/16/23 13:39 Glucose 175 mg/dL (65-115) H 01/16/23 13:39 Calculated Osmolality 298 mOsm/kg (285-295) H 01/16/23 13:39 Calcium 9.7 mg/dL (8.5-10.5) 01/16/23 13:39 Total Bilirubin 0.5 mg/dL (0.15-1.2) 01/16/23 13:39 AST 12 U/L (0-40) 01/16/23 13:39 ALT < 5 U/L (0-41) 01/16/23 13:39 Alkaline Phosphatase 83 U/L (40-130) 01/16/23 13:39 Troponin T Baseline 12 ng/L (0-15) 01/16/23 13:39 Troponin T 120 Minute 13.05 ng/L (0-15) 01/16/23 15:46 Delta Troponin T 1.05 ABS# (0-10) 01/16/23 15:46 NT-Pro-B Natriuret Pep 75 pg/mL (0-125) 01/16/23 13:39 Total Protein 6.8 g/dL (6.6-8.7) 01/16/23 13:39 Albumin 4.3 g/dL (3.5-5.2) 01/16/23 13:39 Globulin 2.5 g/dL (1.3-4.6) 01/16/23 13:39 Lipase 29 U/L (13-60) 01/16/23 13:39 Discharge Plan Discharge Patient Disposition: Home Clinical Impression: Chest pain, Anxiety about health, Bug bites Condition: Stable Prescriptions: No Action omeprazole 40 mg capsule,delayed release(DR/EC) 40 mg PO QAM Qty: 90 1RF metoprolol tartrate 50 mg tablet 25 mg PO BID Qty: 90 4RF prednisone 20 mg tablet 20 mg PO DAILY carbidopa-levodopa 25-250 mg tablet 1.5 - 2 tab PO Q6H Qty: 180 5RF Reglan 10 mg tablet 10 mg PO Q6H PRN (Reason: headache) Qty: 10 0RF acetaminophen 500 mg Tablet 1,000 mg PO Q6H PRN (Reason: Pain) colchicine [Colcrys] 0.6 mg tablet 0.6 mg PO DAILY PRN (Reason: gout) magnesium oxide 500 mg capsule 500 mg PO BID Qty: 20 0RF potassium chloride 20 mEq tablet extended release 20 meq PO BID Qty: 20 0RF Discharge Orders: Discharge ED (Routine); Ordered 01/16/23 Ordered By: Agus Villalobos Referrals: Wali Moon MD [Primary Care Provider] - Discharge Diet: Usual diet Discharge Activity: Resume usual activity Patient Instructions: Chest Pain (ED), Insect Bite or Sting (ED), Anxiety (ED) Activity Restrictions/Additional Instructions: Thank you for visiting the emergency department. You were seen and evaluated for chest pain. The exact cause of your pain is unclear however does not requ olga hospitalization given prior cardiac work-up and ED evaluation at this time. Please continue your medications and follow-up outpatient with cardiology. Please also follow-up with your primary care provider. Return for symptoms that you feel need he emergency department evaluation. 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
--- NOTE | 2023-01-16 13:36 | XRR_ITS ---
PROCEDURE INFORMATION: Exam: XR Chest Exam date and time: 01/16/2023 1:41 PM Age: 57 years old Clinical indication: Shortness of breath; Prior surgery; Surgery date: 6+ months; Surgery type: Neck; Additional info: Cp TECHNIQUE: Imaging protocol: Radiologic exam of the chest. Views: 1 view. COMPARISON: CR XR chest 1V portable [id number] 01/04/2023 9:24 AM FINDINGS: Lungs: Poor inspiration. No consolidation. Pleural spaces: Unremarkable. No pleural effusion. No pneumothorax. Heart/Mediastinum: Unremarkable. No cardiomegaly. Bones/joints: Cervical spine hardware is again seen. No acute findings. XR/XR chest 1V portable [id number] IMPRESSION: No acute findings.
[2023-01-16 13:46] VITALS: BP 127/74; PULSE 128; RESP 16; TEMP 36.8; O2SAT 92
[2023-01-16 13:59] VITALS: BP 127/74; PULSE 124; RESP 17; O2SAT 94
[2023-01-16] MEDS: LORazepam 2 mg/mL INJ 1 mL 1 MG IVP (14:10)
[2023-01-16 14:12] LABS: Basophils % 0.2 %; Eosinophils % 0.3 %; Hematocrit 46.3 % (42.0-52.0); Hemoglobin 15.2 g/dL (11.7-16.6); Lymphocytes # 1.7 10^3/uL (0.8-4.8); Lymphocytes % 15.9 %; Mean Corpuscular HGB Conc 32.8 g/dL (30.0-36.0); Mean Corpuscular Hemoglobin 29.2 pg (28.0-34.0); Mean Platelet Volume 10.4 fL (7.4-10.4); Monocytes # 0.6 10^3/uL (0.2-0.9); Monocytes % 5.2 %; Neutrophils # 8.45 10^3/uL (1.8-7.7); Neutrophils % 77.9 %; Nucleated Red Blood Cells % 0 %; Platelet Count 308 10^3/cmm (130-400); White Blood Count 10.8 10^3/uL (4.0-10.0)
--- NOTE | 2023-01-16 14:12 | PC.NURSE ---
CAROLYN Harris RN PUSHED ATIVAN 1MG
[2023-01-16 14:26] LABS: Troponin(5th) Baseline 12 ng/L (0-15)
[2023-01-16 14:33] LABS: Alanine Aminotransferase < 5 U/L (0-41); Albumin Level 4.3 g/dL (3.5-5.2); Alkaline Phosphatase 83 U/L (40-130); Anion Gap 21.7 (5-19); Aspartate Amino Transferase 12 U/L (0-40); Blood Urea Nitrogen 12 mg/dL (6-20); Calcium 9.7 mg/dL (8.5-10.5); Carbon Dioxide 21 mmol/L (22-29); Chloride 103 mmol/L (98-107); Globulin 2.5 g/dL (1.3-4.6); Glomerular Filtration Rate 68.8 mL/min (90-130); Glucose 175 mg/dL (65-115); Lipase 29 U/L (13-60); NT Pro B Type Natriuretic Pept 75 pg/mL (0-125); Osmolality Calculated 298 mOsm/kg (285-295); Potassium 3.7 mmol/L (3.5-5.1); Sodium 142 mmol/L (136-145); Total Bilirubin 0.5 mg/dL (0.15-1.2); Total Protein 6.8 g/dL (6.6-8.7)
[2023-01-16 14:36] LABS: D Dimer 0.68 ug/mIFEU (0-0.59)
--- NOTE | 2023-01-16 14:42 | CTR_ITS ---
PROCEDURE INFORMATION: Exam: CT Chest With Contrast; Diagnostic Exam date and time: 01/16/2023 4:44 PM Age: 57 years old Clinical indication: Shortness of breath; Additional info: SOB, cp, elevated ddimer TECHNIQUE: Imaging protocol: Diagnostic computed tomography of the chest with contrast. Radiation optimization: All CT scans at this facility use at least one of these dose optimization techniques: automated exposure control; mA and/or kV adjustment per patient size (includes targeted exams where dose is matched to clinical indication); or iterative reconstruction. Contrast material: [id number]; Contrast volume: 100 ml; Contrast route: INTRAVENOUS (IV); REPORTING DATA: Count of CT and Cardiac NM exams in prior 12 months: This patient has received 7 known CTs and 0 known cardiac nuclear medicine studies in the 12 months prior to the current study. COMPARISON: CR XR chest 1V portable [id number] 01/16/2023 1:41 PM RADIATION DOSE METRICS: Total DLP (mGy-cm): 516 FINDINGS: Lungs: Bilateral dependent atelectasis versus infiltrate. Pleural spaces: Unremarkable. No pneumothorax. No pleural effusion. Heart: Minimal coronary artery atherosclerotic calcifications suspected. Lymph nodes: Unremarkable. No enlarged lymph nodes. Vasculature: Unremarkable. No aortic aneurysm. Bones/joints: Unremarkable. No acute fracture. Soft tissues: Unremarkable. CT/CT chest w con* [id number] IMPRESSION: 1. Bilateral dependent atelectasis versus infiltrate. 2. Minimal coronary artery atherosclerotic calcifications suspected. 3. Negative for pulmonary embolus.
[2023-01-16 15:22] VITALS: BP 141/110; PULSE 111; RESP 19; O2SAT 93
--- NOTE | 2023-01-16 15:37 | ECG_ITS ---
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 Measurements Intervals [place] Rate: 126 P: 52 WY: 147 QRS: 8 QRSD: 77 T: 46 QT: 336 QTc: 487 Interpretive Statements SINUS TACHYCARDIA NONSPECIFIC ST & T-WAVE ABNORMALITY ABNORMAL RHYTHM ECG Compared to ECG 01/04/2023 08:26:27 T-wave abnormality now present Sinus rhythm no longer present Electronically Signed On 01-16-2023 23:33:21 CDT by Kalia Duff M.D. [id number]
--- NOTE | 2023-01-16 15:41 | PC.NURSE ---
PER MD DIETRICH PT TOOK [facility] MEDS FROM HOME
[2023-01-16 16:33] VITALS: BP 150/105; PULSE 106; RESP 21; O2SAT 96
[2023-01-16 16:36] LABS: Troponin 5 2HR 13.05 ng/L (0-15)
[2023-01-16 16:47] LABS: Troponin 5 2HR Delta 1.05 ABS# (0-10)
[2023-01-16] MEDS: iohexol 350 mg/mL 500 mL Btl (per mL) IV (17:01)
[2023-01-16 17:36] VITALS: PULSE 106; RESP 18; O2SAT 95
--- NOTE | 2023-01-16 17:53 | PC.NURSE ---
PT WA SUP FOR DC AND I ASKED JASBIR TO REMOVE IVS FROM PT, SHE THEN RETURNED AND TOLD ME HE WAS REFUSING TO LEAVE. I WENT TO PT AND ASKED HIM WHY HE WASNT LEAVING AND HE SAID HE WANTED TO TALK TO DOC BEFORE E LEFT. I TOLD HIM DOC HAD ALREADY CAME IN AND TALKED OT HIM AND TOLD HIM HE WAS CLEARED TO LEAVE. PT STATES HE WAS REFUSING TO LEAVE UNTIL HE TALKED TO DOC AGAIN. I THEN WENT TO NORMA AND TOLD DOC HE WAS REFUSING TO LEAVE UNTIL HE CAME BACK. NORMA TOLD ME HE HAD ALREADY TALKED TO HIM ABOUT EVERYTHING AND CLEARED HIM AND NORMA STATED IF HE IS REFUSING WE CAN HVE SECURITY ESCORE HIM OUT. I THEN GOT GENESIS MY CHARGE AND HAD HER COME WITH ME TO INFORM HIM DOC WAS NOT COMING BACK. ADRIANO RN ALSO WENT WITH ME AND WE TOLD PT THAT JONATHAN WAS WITH A SICK PT AND WOULD NOT BE COMING BACK TO TALK TO HIM SINCE HE ALREADY TOLD HIM HE WAS CLEAR. THE PT REFUSED TO LET US TAKE THE IVS OUT AND WOULD JERK AWAY WHEN WE TRIED. AFTER TELLING PT SEVERAL TIMES DOC WAS NOT COMING BACK AND HIS CHEST PAIN WAS ONLY RELATED TO ANXIETY, NOTHING CARDIAC RELATED HE FINALLY LET PERRIINDERJITSteven AND ADRIANO TAKE HIS IVS OUT. PT STILL WAS REFUSING SAYING HE WOULD NOT LEAVE UNTIL HE TALKED TO DOC AND I ASKED PT TO TELL ME SINCE I WAS INVOLVED WITH HIS CARE SO I COULD RELAY IT TO DOC AND HE REFUSED THIS ALSO SAYING ITS BETWEEN ME A ND DOC . PT HAD A ALDI BAG WITH HIS BELONGINGS IN IT. PT HAD ONE BOTTLE OF MEDS IN BED WITH HIM AND THIS WAS PLACED BACK IN BACK WITH WITNESSES. PT SHOES WER TAKEN OUT ALONG WITH SOCKS, PT WATCHED AND VERIFIED WE TOOK WALLET AND PHONE CASE OUT OF SHOES AND PLACED BACK IN BAG. PT DEMANDED WE GET HIS HAT AND PUT HIS SOCKS AND SHOES ON HIM. PT WAS VERY VERBALLY AGRESSIVE AND DEMANDING. PT TOLD US THAT OUR ER WAS NOT WORTH SHIT AND EVERYONE IN HERE IS DUMN AND NEEDS AN EDUCATION PRIOR TO BEING WHEELED OUT. PT UPON ARRIVAL ALSO TOLD ME KEITH DOING MY ASSESSMENT THAT THE BITES ON HIS LEGS WERE FROM BUGS, THIS IS WHAT HE WANTED TO ASK DOC ABOUT, ALSO ON HIS DC PAPERS IT STATES DOC ASSESSED THE BUG BITES AND TALKS ABOUT THEM.
--- NOTE | 2023-01-16 17:54 | PC.NURSE ---
PATIENT REFUSED TO LEAVE. SECURITY WAS CALLED. PATIENT REFUSED TO LET NURSE TAKE OUT IVS. PATIENT WANTED TO TALK TO DOCTOR BEFORE LEAVING BUT DR. CASTILLO STATES HE ALREADY UPDATED PATIENT AND PATIENT WAS CLEAR FOR DISCHARGE. PATIENT WAS RUDE TO STAFF MEMBERS AND WOULD NOT HELP STAFF GET HIMSELF READY.
== END 2023-01-16 18:12 | disposition home or self-care (01) ==
PROVIDERS: Emergency Provider Emergency Medicine; PCP Family Medicine Adult Medicine
DX: R07.9 Chest pain, unspecified (principal); F41.9 Anxiety disorder, unspecified; W57.XXXA Bitten or stung by nonvenomous insect and other nonvenomous arthropods, initial encounter; I25.10 Atherosclerotic heart disease of native coronary artery without angina pectoris; I10 Essential (primary) hypertension; G20 Parkinson's disease; Z86.73 Personal history of transient ischemic attack (TIA), and cerebral infarction without residual deficits; F17.220 Nicotine dependence, chewing tobacco, uncomplicated; R20.0 Anesthesia of skin; R20.2 Paresthesia of skin
CPT/HCPCS: 36415; 70450; 71045; 71260; 80053; 83690; 83880; 84484; 85025; 85378; 93005; 96374; 99284; 99285; J2060; Q9967

== ENCOUNTER 2023-01-16 23:31 | Emergency (ER) | payer MEDICARE, MEDICAID, SELFPAY ==
--- NOTE | 2023-01-16 23:43 | ECG_ITS ---
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 Measurements Intervals [place] Rate: 98 P: 50 NV: 152 QRS: -2 QRSD: 92 T: 10 QT: 360 QTc: 461 Interpretive Statements SINUS RHYTHM VOLTAGE CRITERIA FOR LVH [MEETS CRITERIA IN ONE OF: R(aVL), S(V1), R(V5), R(V5/V6)+S(V1)] Compared to ECG 01/16/2023 14:03:03 Left ventricular hypertrophy now present Sinus tachycardia no longer present T-wave abnormality no longer present Electronically Signed On 01-17-2023 16:03:31 CDT by Rashad El M.D. [id number]
[2023-01-16 23:47] VITALS: BP 143/93; PULSE 110; RESP 16; TEMP 36.7; O2SAT 100; BMI 25.0
--- NOTE | 2023-01-16 23:54 | CTR_ITS ---
PROCEDURE INFORMATION: Exam: CT Head Without Contrast Exam date and time: 01/17/2023 12:18 AM Age: 57 years old Clinical indication: Weakness, extremity and weakness, facial; Bilateral; Additional info: Left side of face numbness and right arm numbness TECHNIQUE: Imaging protocol: Computed tomography of the head without contrast. Radiation optimization: All CT scans at this facility use at least one of these dose optimization techniques: automated exposure control; mA and/or kV adjustment per patient size (includes targeted exams where dose is matched to clinical indication); or iterative reconstruction. REPORTING DATA: Count of CT and Cardiac NM exams in prior 12 months: This patient has received 8 known CTs and 0 known cardiac nuclear medicine studies in the 12 months prior to the current study. COMPARISON: CT head wo con* [id number] 01/04/2023 9:18 AM RADIATION DOSE METRICS: Total DLP (mGy-cm): 1021.48 FINDINGS: Brain: There is no evidence of acute parenchymal hemorrhage, extra-axial collection, or acute infarction. There is no mass effect, midline shift, or downward herniation. Cerebral ventricles: No ventriculomegaly. Paranasal sinuses: Visualized sinuses are unremarkable. No fluid levels. Mastoid air cells: Visualized mastoid air cells are well aerated. Bones/joints: Unremarkable. No acute fracture. Soft tissues: Unremarkable. CT/CT head wo con* [id number] IMPRESSION: No acute intracranial abnormality.
--- NOTE | 2023-01-16 23:55 | ED_ITS ---
HPI - Chest Pain General: Chief Complaint: Chest Pain Stated Complaint: CP Time Seen by Provider: 01/16/23 23:35 History of Present Illness: Patient is a 57-year-old male who comes to the ED via EMS with numbness tingling to left side of face and right arm. Patient was seen here in the ED earlier today for chest pain and evaluation was done and patient was clear for discharge home. He states that he was still having some chest pain when he left the ED earlier this evening. He says his chest pain has gotten better since being discharged. About 30 minutes prior to arrival, he was walking in his house carrying some jars of food and he lost his balance and fell backwards into a wall and then slowly slid down the wall.Denies any head trauma or loss of consciousness. A few minutes after that he started developing some left-sided facial numbness and right arm numbness and tingling. He then called EMS and they brought him here to the ED for evaluation. Patient says he also has been dealing with some chronic headaches. Headaches have been coming and going daily for the past week. Associated symptoms: Deny abdominal pain, dyspnea, fever(s), nausea, palpitations or vomiting Review of Systems Const: Denies: fever(s), chills or fatigue Eyes: Denies: change in vision or eye discomfort ENMT: Denies: throat pain, odynophagia, nasal discharge or nasal congestion Card: Denies: chest pain, palpitations, edema, swelling of feet/ankles, dyspnea on exertion or orthopnea Resp: Denies: dyspnea, productive cough or non-productive cough GI: Denies: abdominal pain, nausea, vomiting, diarrhea, constipation or hemato chezia : Denies: flank pain, difficulty urinating, dysuria or hematuria Musc: Denies: neck pain, back pain or extremity swelling Skin/Breast: Denies: rash or new lesions Neuro: Reports: headache(s), numbness in extremities (Right arm) and sensory changes (Left side of face numbness/tingling); Denies: weakness in extremities [facility] PFSH: Medical History Anxiety about health Anxiety and depression CAD (coronary artery disease) Chewing tobacco nicotine dependence Age [age] (currently) Chronic right shoulder pain DDD (degenerative disc disease) Decreased glomerular filtration rate (GFR) Fusion of lumbar spine Gout Head injury due to trauma Hearing loss Hypertension Hypokalemia Knee pain, right Left foot infection Migraines Osteoarthritis Pain in left ankle Parkinsons disease Polyp of esophagus Polyp of tongue Right foot infection Swelling of joint of both wrists Swelling of left ankle joint Syncope TIA (transient ischemic attack) Surgical History History of back surgery x6 different surgeries on the spine History of esophagogastroduodenoscopy (EGD) 2009, repeat 12/27/2022 no abnormality, bx done History of total knee arthroplasty Left TKA x2 revision needed due to loosening of hardware, no history of infection Hx of bilateral hip replacements 3 on right hip and 0 left Hx of colonoscopy with polypectomy 2009, repeat 12/27/2022 with polyps, next in 5 years S/P cervical spinal fusion Family History Father Stroke Heart attack Brother Hypertension Sister Heart attack Social History Smoking and tobacco status: current every day smoker (chewing) smokeless tobacco Smokeless tobacco user: chewing tobacco Alcohol intake: former Desire information about alcohol rehabilitation?: No Substance/Drug Use: current Substance/Drug use frequency: other Other substance/drug use details: medical marijuana Desire information about substance/drug rehabilitation?: No Caregiver/support person: No Lives independently: Yes Household members: none Marital status: Single Highest education level completed: Some College, No Degree service: No Current occupational status: retired and disabled Do you think of yourself as: Straight/Heterosexual Current gender identity: Male Physical Exam Const: COMMON NORMALS: no acute distress, patient oriented x3 and alert HENMT: COMMON NORMALS: normocephalic HEAD & SCALP: normocephalic MOUTH: Normal oral and palatal mucosa present THROAT: posterior oropharynx normal and uvula midline Eye: COMMON NORMALS: Equal, round and reactive pupils present and EOMs intact bilaterally GENERAL EYE: appearance normal, both eyes and all related structures PUPIL: Yes Equal, round and reactive pupils present Neck/C-Spine: COMMON NORMALS: supple GENERAL: Yes normal visual inspection Lymph: LYMPHATIC: no lymphadenopathy noted Resp: COMMON NORMALS: normal respiratory effort, No retractions, No use of accessory muscles and clear to auscultation bilaterally AUSCULTATION: clear to auscultation bilaterally Cardio: COMMON NORMALS: regular rate, regular rhythm, S1 normal heart sound present, S2 normal heart sound present, No gallops present (Cardio), No clicks present (Cardio), No murmurs present (Cardio) and Peripheral pulses 2+ throughout RATE: regular rate RHYTHM: regular rhythm HEART SOUNDS: S1 normal heart sound present and S2 normal heart sound present PERIPHERAL PULSES: Peripheral pulses 2+ throughout GI: COMMON NORMALS: Normal to inspection, nondistended, normoactive bowel sounds present, Soft to palpation, non-tender and no masses PALPATION: Yes Soft to palpation : COMMON NORMALS: Yes no CVA tenderness BLADDER/KIDNEY EXAM: Yes no CVA tenderness Back/Pelvis: COMMON NORMALS: no CVA tenderness Extremity: GENERAL: Yes normal exam except as noted Neuro: COMMON NORMALS: patient oriented x3, CN's II-XII intact bilaterally, moves all extremities, no focal motor deficits and no sensory deficits noted SENSORIUM/ORIENTATION: Yes alert SENSORY EXAM: Yes extremities (intact) MOTOR EXAM: 5/5 motor strength present throughout Skin: COMMON NORMALS: no rashes or lesions noted GENERAL SKIN EXAM: no rashes or lesions noted and dry skin Course Vital Signs: Vital signs: Vital Signs Temperature 98.0 F 01/16/23 23:47 Pulse Rate 96 01/17/23 01:33 Respiratory Rate 20 H 01/17/23 01:33 Blood Pressure 155/106 01/17/23 01:33 Pulse Oximetry 96 01/17/23 01:33 Oxygen Delivery Me thod Room Air 01/17/23 01:01 MDM - Chest Pain Medical Decision Making Patient is a 57-year-old male who comes to the ED via EMS with numbness tingling to left side of face and right arm. Patient was seen here in the ED earlier today for chest pain and evaluation was done and patient was clear for discharge home. He states that he was still having some chest pain when he left the ED earlier this evening. He says his chest pain has gotten better since being di scharged. About 30 minutes prior to arrival, he was walking in his house carrying some jars of food and he lost his balance and fell backwards into a wall and then slowly slid down the wall.Denies any head trauma or loss of consciousness. A few minutes after that he started developing some left-sided facial numbness and right arm numbness and tingling. He then called EMS and they brought him here to the ED for evaluation. Patient says he also has been dealing with some chronic headaches. Headaches have been coming and going daily for the past week. Vital stable. Patient appears nontoxic in no acute distress. Neuro exam shows no deficits. EKG shows sinus rhythm with no ST segment elevation or depression seen. Head CT showed no acute findings. He was given a dose of morphine here in the ED to help with this headache Patient was diagnosed with headache and paresthesia and was stable for discharge home. Told to follow-up with his PCP in the next week for reevaluation. Return to ED precautions given. Patient understood and agreed with plan Lab Data Radiology Impressions Head CT 01/16/23 23:54 IMPRESSION: No acute intracranial abnormality. EKG Data EKG 1: EKG interpretation date: 01/17/23 Interpretation: Normal sinus rhythm, no ST segment elevation or depression seen, 98 bpm, no acute changes compared to his EKG from earlier today. Discharge Plan Discharge Patient Disposition: Home Clinical Impression: Paresthesia Headache Qualifiers: Headache type: unspecified Headache chronicity pattern: episodic headache Intractability: not intractable Qualified Code(s): R51.9 - Headache, unspecified Condition: Stable Prescriptions: No Action omeprazole 40 mg capsule,delayed release(DR/EC) 40 mg PO QAM Qty: 90 1RF metoprolol tartrate 50 mg tablet 25 mg PO BID Qty: 90 4RF prednisone 20 mg tablet 20 mg PO DAILY carbidopa-levodopa 25-250 mg tablet 1.5 - 2 tab PO Q6H Qty: 180 5RF potassium chloride 10 mEq tablet extended release 10 meq PO DAILY Qty: 7 0RF Reglan 10 mg tablet 10 mg PO Q6H PRN (Reason: headache) Qty: 10 0RF acetaminophen 500 mg Tablet 1,000 mg PO Q6H PRN (Reason: Pain) colchicine [Colcrys] 0.6 mg tablet 0.6 mg PO DAILY PRN (Reason: gout) magnesium oxide 500 mg capsule 500 mg PO BID Qty: 20 0RF potassium chloride 20 mEq tablet extended release 20 meq PO BID Qty: 20 0RF Discharge Orders: Discharge ED (Routine); Ordered 01/17/23 Ordered By: Jude Sue Referrals: Wali Moon MD [Primary Care Provider] - Discharge Diet: Regular Discharge Activity: Increase activity as tolerated Activity Restrictions/Additional Instructions: Follow-up with your primary care physician at your next scheduled appointment. Continue taking all home medications as previously prescribed. Return to the ER or your medical provider if condition worsens. Please read and understand discharge instructions. Thank you for choosing [facility] for your healthcare needs today. Please realize this is an emergency room and that we are providing you with a medical screening exam and this may not be complete and all inclusive of all the testing and or work up that you may need to determine your ailment or severity of your illness. It is very important that you follow up as instructed or that you return to the Emergency Department should you have concerns or if your condition changes or worsens in any way. Coding Level of Care Code ED Irrigation Tax Assessor Collector for Mu Pressley
[2023-01-17 01:01] VITALS: BP 147/106; PULSE 95; RESP 18; O2SAT 99
[2023-01-17 01:04] VITALS: RESP 20; O2SAT 100
[2023-01-17] MEDS: morphine 4 mg/mL SDV 1 mL IM (01:04)
[2023-01-17 01:33] VITALS: BP 155/106; PULSE 96; RESP 20; O2SAT 96
== END 2023-01-17 01:35 | disposition home or self-care (01) ==
PROVIDERS: Emergency Provider Physician Assistant; PCP Family Medicine Adult Medicine
DX: R51.9 Headache, unspecified (principal); I10 Essential (primary) hypertension; G20 Parkinson's disease; I25.10 Atherosclerotic heart disease of native coronary artery without angina pectoris; F17.220 Nicotine dependence, chewing tobacco, uncomplicated; Z79.899 Other long term (current) drug therapy; Z86.73 Personal history of transient ischemic attack (TIA), and cerebral infarction without residual deficits
CPT/HCPCS: 70450; 93005; 96372; 99284; J2270

== ENCOUNTER → 2023-01-25 09:58 | Outpatient (BNVA) | payer MEDICARE, MEDICAID, SELFPAY | PROVIDERS: PCP Family Medicine Adult Medicine; Visit Provider Podiatrist Foot & Ankle Surgery | DX: M25.571 Pain in right ankle and joints of right foot; M25.572 Pain in left ankle and joints of left foot | CPT/HCPCS: 99213 ==

== ENCOUNTER 2023-02-01 19:49 | Emergency (ER) | payer MEDICARE, MEDICAID, SELFPAY ==
[2023-02-01 19:52] VITALS: BP 161/105; PULSE 84; RESP 22; TEMP 36.9; O2SAT 92; BMI 26.6
--- NOTE | 2023-02-01 19:52 | ECG_ITS ---
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 Measurements Intervals [place] Rate: 84 P: 56 AR: 145 QRS: 11 QRSD: 89 T: 45 QT: 377 QTc: 447 Interpretive Statements SINUS RHYTHM Compared to ECG 01/17/2023 00:26:05 Left ventricular hypertrophy no longer present Electronically Signed On 02-02-2023 12:11:02 CDT by Miguelina Gupta M.D. [id number]
--- NOTE | 2023-02-01 20:12 | ED_ITS ---
HPI - Syncope General: Chief Complaint: Syncope Stated Complaint: chest pain Time Seen by Provider: 02/01/23 19:53 Source: patient History of Present Illness: 57-year-old male well-known to the emergency department service. He has been here multiple times with multiple complaints. He presents complaining of a near syncopal episode, witnessed by a cousin, with some shortness of breath and chest discomfort. He complains of for optical migraines today. States his head still hurts. complaint: felt faint and almost passed out Prodromal symptoms: headache Associated symptoms: Reports chest pain, headache(s) and nausea; Deny abdominal pain or fever(s) Review of Systems Const: Denies: fever(s) Eyes: Reports: change in vision and photophobia ENMT: Denies: throat pain Card: Reports: chest pain Resp: Reports: dyspnea GI: Reports: nausea; Denies: abdominal pain or vomiting Neuro: Reports: headache(s) PFSH ED PFSH: Medical History Anxiety and depression CAD (coronary artery disease) Chewing tobacco nicotine dependence Age [age] (currently) Chronic right shoulder pain DDD (degenerative disc disease) Decreased glomerular filtration rate (GFR) Fusion of lumbar spine Gout Hearing loss Hypertension Left foot infection Metatarsus adductus of both feet Migraines Osteoarthritis Parkinsons disease Pes planus of both feet Polyp of tongue Right foot infection Syncope TIA (transient ischemic attack) Surgical History History of back surgery x6 different surgeries on the spine History of esophagogastroduodenoscopy (EGD) 2009, repeat 12/27/2022 no abnormality, bx done History of total knee arthroplasty Left TKA x2 revision needed due to loosening of hardware, no history of infection Hx of bilateral hip replacements 3 on right hip and 0 left Hx of colonoscopy with polypectomy 2009, repeat 12/27/2022 with polyps, next in 5 years S/P cervical spinal fusion Status post surgery Family History Father Stroke Heart attack Brother Hypertension Sister Heart attack Social History Smoking and tobacco status: current every day smoker (chewing) smokeless tobacc o Smokeless tobacco user: chewing tobacco Alcohol intake: former Desire information about alcohol rehabilitation?: No Substance/Drug Use: current Substance/Drug use frequency: other Other subs tance/drug use details: medical marijuana Desire information about substance/drug rehabilitation?: No Caregiver/support person: No Lives independently: Yes Household members: none Marital status: Single Highest education level completed: Some College, No Degree service: No Current occupational status: retired and disabled Do you think of yourself as: Straight/Heterosexual Current gender identity: Male Physical Exam Const: COMMON NORMALS: no acute distress GENERAL APPEARANCE: cooperative; not ill appearing and not frail appearing HENMT: COMMON NORMALS: normocephalic, atraumatic and Normal external nose present HEAD & SCALP: normocephalic and atraumatic FACE & SINUS: normal facial exam and face symmetric NOSE: Normal external nose present Eye: COMMON NORMALS: Equal, round and reactive pupils present and EOMs intact bilaterally PUPIL: Yes Equal, round and reactive pupils present Neck/C-Spine: GENERAL: Yes trachea midline Chest: CHEST: Yes Symmetrical chest wall rise Resp: COMMON NORMALS: normal respiratory effort, No retractions, No use of accessory muscles and clear to auscultation bilaterally AUSCULTATION: clear to auscultation bilaterally Cardio: COMMON NORMALS: regular rate and regular rhythm RATE: regular rate RHYTHM: regular rhythm GI: COMMON NORMALS: Normal to inspection, nondistended, normoactive bowel sounds present Extremity: COMMON NORMALS: no pedal edema Neuro: REZA COMA SCALE: document GCS findings Reza coma scale eye opening: Spontaneous Reza coma scale verbal response: Orientated Reza coma scale motor response: Obey commands [place] coma scale total score: 15 SENSO RY EXAM: Yes extremities (intact) Psych: COMMON NORMALS: speech normal SPEECH: Yes normal speech Skin: COMMON NORMALS: no rashes or lesions noted GENERAL SKIN EXAM: no rashes or lesions noted Course Vital Signs: Vital signs: Vital Signs Temperature 98.4 F 02/01/23 19:52 Pulse Rate 77 02/01/23 23:28 Respiratory Rate 18 02/01/23 23:28 Blood Pressure 122/96 02/01/23 23:28 Pulse Oximetry 96 02/01/23 23:28 Oxygen Delivery Me thod Room Air 02/01/23 22:44 MDM - Syncope Medical Decision Making Potassium is mildly low. White blood cell count is 11.8. Chest x-ray is negative. Other laboratory is completely unremarkable. His delta troponin is negative. His EKG shows no acute ST changes. He has had a headache, and he notes continued optical migraines . He was given an infusion of Depacon for this with minimal improvement. He will be discharged home. Outpatient follow- up. This patient has had multiple head CTs of late, which were all negative. I do not see a reason clinically to repeat one today in the absence of new specific symptoms. Lab Data 02/01/23 20:16 02/01/23 20:16 Radiology Impressions Chest X-Ray 02/01/23 21:57 IMPRESSION: No acute cardiopulmonary disease. Laboratory Results WBC 11.8 10^3/uL (4.0-10.0) H 02/01/23 20:16 RBC 5.49 10^6/uL (4.1-5.3) H 02/01/23 20:16 Hgb 15.6 g/dL (11.7-16.6) 02/01/23 20:16 Hct 48.6 % (42.0-52.0) 02/01/23 20:16 MCV 88.5 fl (80-94) 02/01/23 20:16 MCH 28.4 pg (28.0-34.0) 02/01/23 20:16 MCHC 32.1 g/dL (30.0-36.0) 02/01/23 20:16 RDW 14.9 % (12.1-15.1) 02/01/23 20:16 Plt Count 283 10^3/cmm (130-400) 02/01/23 20:16 MPV 9.3 fL (7.4-10.4) 02/01/23 20:16 Neut % (Auto) 70.0 % 02/01/23 20:16 Lymph % (Auto) 20.6 % 02/01/23 20:16 [place] % (Auto) 7.8 % 02/01/23 20:16 Eos % (Auto) 0.6 % 02/01/23 20:16 Baso % (Auto) 0.4 % 02/01/23 20:16 Neut # (Auto) 8.25 10^3/uL (1.8-7.7) H 02/01/23 20:16 Lymph # (Auto) 2.4 10^3/uL (0.8-4.8) 02/01/23 20:16 [place] # (Auto) 0.9 10^3/uL (0.2-0.9) 02/01/23 20:16 Eos # (Auto) 0.1 10^3/uL (0.0-0.8) 02/01/23 20:16 Baso # (Auto) 0.1 10^3/uL (0.0-0.1) 02/01/23 20:16 Nucleated RBC % (auto) 0 % 02/01/23 20:16 Nucleated RBCs # 0.0 /100WBC 02/01/23 20:16 Sodium 141 mmol/L (136-145) 02/01/23 20:16 Potassium 3.3 mmol/L (3.5-5.1) L 02/01/23 20:16 Chloride 102 mmol/L (98-107) 02/01/23 20:16 Carbon Dioxide 25 mmol/L (22-29) 02/01/23 20:16 Anion Gap 17.3 (5-19) 02/01/23 20:16 BUN 12 mg/dL (6-20) 02/01/23 20:16 Creatinine 0.8 mg/dL (0.7-1.2) 02/01/23 20:16 GFR Calculation 99.3 mL/min (90-130) 02/01/23 20:16 Glucose 96 mg/dL (65-115) 02/01/23 20:16 Calculated Osmolality 292 mOsm/kg (285-295) 02/01/23 20:16 Calcium 9.3 mg/dL (8.5-10.5) 02/01/23 20:16 Magnesium 1.7 mg/dL (1.7-2.3) 02/01/23 20:16 Total Bilirubin 0.5 mg/dL (0.15-1.2) 02/01/23 20:16 AST 10 U/L (0-40) 02/01/23 20:16 ALT < 5 U/L (0-41) 02/01/23 20:16 Alkaline Phosphatase 70 U/L (40-130) 02/01/23 20:16 Troponin T Baseline 9 ng/L (0-15) 02/01/23 20:16 Troponin T 120 Minute 9.28 ng/L (0-15) 02/01/23 22:37 Delta Troponin T 0.28 ABS# (0-10) 02/01/23 22:37 NT-Pro-B Natriuret Pep 82 pg/mL (0-125) 02/01/23 20:16 Total Protein 6.0 g/dL (6.6-8.7) L 02/01/23 20:16 Albumin 3.7 g/dL (3.5-5.2) 02/01/23 20:16 Globulin 2.3 g/dL (1.3-4.6) 02/01/23 20:16 Discharge Plan Discharge Patient Disposition: Home Clinical Impression: Migraine headache Condition: Stable Prescriptions: No Action omeprazole 40 mg capsule,delayed release(DR/EC) 40 mg PO QAM Qty: 90 1RF metoprolol tartrate 50 mg tablet 25 mg PO BID Qty: 90 4RF prednisone 20 mg tablet 20 mg PO DAILY carbidopa-levodopa 25-250 mg tablet 1.5 - 2 tab PO Q6H Qty: 180 5RF Reglan 10 mg tablet 10 mg PO Q6H PRN (Reason: headache) Qty: 10 0RF acetaminophen 500 mg Tablet 1,000 mg PO Q6H PRN (Reason: Pain) colchicine [Colcrys] 0.6 mg tablet 0.6 mg PO DAILY PRN (Reason: gout) magnesium oxide 500 mg capsule 500 mg PO BID Qty: 20 0RF potassium chloride 20 mEq tablet extended release 20 meq PO BID Qty: 20 0RF Discharge Orders: Discharge ED (Routine); Ordered 02/01/23 Ordered By: Saeid Schofield Referrals: Wali Moon MD [Primary Care Provider] - 1-3 days Patient Instructions: Migraine Headache (ED), Syncope (ED), Opioid Safety, Pain Management Activity Restrictions/Additional Instructions: Return for fever, vomiting, repeated episodes of syncope or passing out, other concerning symptoms. Coding Level of Care Code ED Pocket Setter Lockstitch for Mu Pressley
[2023-02-01 20:26] LABS: Basophils # 0.1 10^3/uL (0.0-0.1); Basophils % 0.4 %; Eosinophils # 0.1 10^3/uL (0.0-0.8); Eosinophils % 0.6 %; Hematocrit 48.6 % (42.0-52.0); Hemoglobin 15.6 g/dL (11.7-16.6); Lymphocytes # 2.4 10^3/uL (0.8-4.8); Lymphocytes % 20.6 %; Mean Corpuscular HGB Conc 32.1 g/dL (30.0-36.0); Mean Corpuscular Hemoglobin 28.4 pg (28.0-34.0); Mean Corpuscular Volume 88.5 fl (80-94); Mean Platelet Volume 9.3 fL (7.4-10.4); Monocytes # 0.9 10^3/uL (0.2-0.9); Monocytes % 7.8 %; Neutrophils # 8.25 10^3/uL (1.8-7.7); Nucleated Red Blood Cells % 0 %; Platelet Count 283 10^3/cmm (130-400); Red Blood Count 5.49 10^6/uL (4.1-5.3); Red Cell Distribution Width 14.9 % (12.1-15.1); White Blood Count 11.8 10^3/uL (4.0-10.0)
[2023-02-01] MEDS: valproic acid inj 500 MG in sodium chloride 0.9% 50 ML 55 MG IV (20:46)
[2023-02-01 20:55] LABS: Troponin(5th) Baseline 9 ng/L (0-15)
[2023-02-01 21:03] LABS: Alanine Aminotransferase < 5 U/L (0-41); Albumin Level 3.7 g/dL (3.5-5.2); Alkaline Phosphatase 70 U/L (40-130); Aspartate Amino Transferase 10 U/L (0-40); Blood Urea Nitrogen 12 mg/dL (6-20); Calcium 9.3 mg/dL (8.5-10.5); Carbon Dioxide 25 mmol/L (22-29); Chloride 102 mmol/L (98-107); Globulin 2.3 g/dL (1.3-4.6); Glomerular Filtration Rate 99.3 mL/min (90-130); Glucose 96 mg/dL (65-115); Magnesium 1.7 mg/dL (1.7-2.3); NT Pro B Type Natriuretic Pept 82 pg/mL (0-125); Osmolality Calculated 292 mOsm/kg (285-295); Sodium 141 mmol/L (136-145); Total Bilirubin 0.5 mg/dL (0.15-1.2)
[2023-02-01 21:04] LABS: Anion Gap 17.3 (5-19); Potassium 3.3 mmol/L (3.5-5.1)
--- NOTE | 2023-02-01 21:57 | XRR_ITS ---
PROCEDURE INFORMATION: Exam: XR Chest Exam date and time: 02/01/2023 10:09 PM Age: 57 years old Clinical indication: Other: Body pains; Additional info: SOB TECHNIQUE: Imaging protocol: Radiologic exam of the chest. Views: 1 view. COMPARISON: CT angio chest PE protcl [id number] 01/16/2023 4:44 PM FINDINGS: Lungs: Unremarkable. No consolidation. Pleural spaces: Unremarkable. No pleural effusion. No pneumothorax. Heart/Mediastinum: Unremarkable. No cardiomegaly. The descending thoracic aorta is prominent. Bones/joints: Patient status post cervical fusion. XR/XR chest 1V portable [id number] IMPRESSION: No acute cardiopulmonary disease.
[2023-02-01] MEDS: metoclopramide 5 mg/mL SDV 2 mL 10 MG IVP (22:08)
[2023-02-01] MEDS: potassium chloride oral liq 20 mEq/15 mL UDC 40 MEQ PO (22:09)
--- NOTE | 2023-02-01 22:09 | ECG_ITS ---
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 Measurements Intervals [place] Rate: 87 P: 0 AK: 0 QRS: 4 QRSD: 90 T: 66 QT: 355 QTc: 428 Interpretive Statements SUPRAVENTRICULAR RHYTHM MODERATE ST DEPRESSION [0.05+ mV ST DEPRESSION] Compared to ECG 01/17/2023 00:26:05 Supraventricular rhythm now present ST (T wave) deviation now present Sinus rhythm no longer present Left ventricular hypertrophy no longer present Electronically Signed On 02-01-2023 22:43:57 CDT by Rashad El M.D. [id number]
[2023-02-01 22:44] VITALS: BP 148/117; PULSE 81; RESP 17; O2SAT 95
[2023-02-01 23:07] LABS: Troponin 5 2HR 9.28 ng/L (0-15); Troponin 5 2HR Delta 0.28 ABS# (0-10)
[2023-02-01 23:28] VITALS: BP 122/96; PULSE 77; RESP 18; O2SAT 96
== END 2023-02-01 23:22 | disposition home or self-care (01) ==
PROVIDERS: Emergency Provider Emergency Medicine; PCP Family Medicine Adult Medicine
DX: G43.909 Migraine, unspecified, not intractable, without status migrainosus (principal); F17.220 Nicotine dependence, chewing tobacco, uncomplicated; I25.10 Atherosclerotic heart disease of native coronary artery without angina pectoris; I10 Essential (primary) hypertension; G20 Parkinson's disease; Z86.73 Personal history of transient ischemic attack (TIA), and cerebral infarction without residual deficits
CPT/HCPCS: 36415; 71045; 80053; 83735; 83880; 84484; 85025; 93005; 96365; 96375; 99285; J2765; J3490

== ENCOUNTER 2023-02-03 09:52 | Emergency (ER) | payer MEDICARE, MEDICAID, SELFPAY ==
[2023-02-03] VITALS (24 sets, daily range): BP systolic 143–175; BP diastolic 89–123; PULSE 0–91; RESP 13–25; TEMP 36.7; O2SAT 83–98; BMI 28.1
--- NOTE | 2023-02-03 10:08 | CTR_ITS ---
PROCEDURE INFORMATION: Exam: CT Lumbar Spine Without Contrast Exam date and time: 02/03/2023 10:46 AM Age: 57 years old Clinical indication: Injury or trauma; Fall; Blunt trauma (contusions or hematomas); Prior surgery; Surgery date: 6+ months; Surgery type: Neck and back; Additional info: Trauma, pain TECHNIQUE: Imaging protocol: Computed tomography of the lumbar spine without contrast. Radiation optimization: All CT scans at this facility use at least one of these dose optimization techniques: automated exposure control; mA and/or kV adjustment per patient size (includes targeted exams where dose is matched to clinical indication); or iterative reconstruction. REPORTING DATA: Count of CT and Cardiac NM exams in prior 12 months: This patient has received 9 known CTs and 0 known cardiac nuclear medicine studies in the 12 months prior to the current study. COMPARISON: CR XR lumbar spine 2-3V* [id number] 12/30/2021 11:48 PM RADIATION DOSE METRICS: Total DLP (mGy-cm): 743.9 FINDINGS: Bones/joints: Status post left-sided posterior carissa and screw fusion of L4-L5 with intervertebral disc spacer. Allowing for differences in technique, this appears stable in alignment from lumbar spine radiograph 12/30/2021. No radiographic evidence of hardware fracture or perihardware lucency. Mild multilevel discogenic degenerative changes and facet arthropathy throughout the lumbar spine. No evidence of acute fracture of the lumbar spine. No significant spinal canal stenosis. Soft tissues: Unremarkable. CT/CT lumbar spine wo con* [id number] IMPRESSION: 1. No acute fracture or dislocation in the lumbar spine. 2. Left posterior carissa and screw fusion of L4-L5 with intervertebral disc spacer appears intact and unchanged in alignment compared to 12/30/2021.
--- NOTE | 2023-02-03 10:08 | CTR_ITS ---
PROCEDURE INFORMATION: Exam: CT Thoracic Spine Without Contrast Exam date and time: 02/03/2023 10:43 AM Age: 57 years old Clinical indication: Injury or trauma; Fall; Blunt trauma (contusions or hematomas); Additional info: Trauma, pain TECHNIQUE: Imaging protocol: Computed tomography of the thoracic spine without contrast. Radiation optimization: All CT scans at this facility use at least one of these dose optimization techniques: automated exposure control; mA and/or kV adjustment per patient size (includes targeted exams where dose is matched to clinical indication); or iterative reconstruction. REPORTING DATA: Count of CT and Cardiac NM exams in prior 12 months: This patient has received 9 known CTs and 0 known cardiac nuclear medicine studies in the 12 months prior to the current study. COMPARISON: CT cervical spin wo con* [id number] 02/03/2023 10:39 AM RADIATION DOSE METRICS: Total DLP (mGy-cm): 792.21 FINDINGS: Bones/joints: Partially imaged cervical fusion hardware extends to the level of T1. The imaged portions of this hardware appear intact with no hardware fracture or perihardware lucency. Multilevel chronic discogenic degenerative changes of the thoracic spine. No spondylolisthesis. Normal curvature is maintained. No acute fracture identified. Soft tissues: Unremarkable. Lungs: Mild dependent atelectasis in the bilateral lungs. CT/CT thoracic spin wo con* [id number] IMPRESSION: No acute fracture or dislocation in the thoracic spine.
--- NOTE | 2023-02-03 10:08 | CTR_ITS ---
PROCEDURE INFORMATION: Exam: CT Cervical Spine Without Contrast Exam date and time: 02/03/2023 10:39 AM Age: 57 years old Clinical indication: Injury or trauma; Fall; Blunt trauma; Prior surgery; Surgery date: 6+ months; Surgery type: Neck and back; Additional info: Trauma, pain TECHNIQUE: Imaging protocol: Computed tomography of the cervical spine without contrast. Radiation optimization: All CT scans at this facility use at least one of these dose optimization techniques: automated exposure control; mA and/or kV adjustment per patient size (includes targeted exams where dose is matched to clinical indication); or iterative reconstruction. REPORTING DATA: Count of CT and Cardiac NM exams in prior 12 months: This patient has received 9 known CTs and 0 known cardiac nuclear medicine studies in the 12 months prior to the current study. COMPARISON: CT cervical spin wo con* [id number] 01/04/2023 9:18 AM RADIATION DOSE METRICS: Total DLP (mGy-cm): 205.67 FINDINGS: Bones/joints: Stable alignment of ACDF of C6-C7. Stable alignment of posterior carissa and screw fusion of C4-T1. No radiographic evidence of hardware fracture or perihardware lucency. Multilevel discogenic degenerative changes, most prominent at C4-C5 and C5-C6 are not significantly changed from 01/04/2023. Normal cervical lordosis is maintained. No spondylolisthesis. No acute fracture identified. The visualized skull base is normal. Lungs: Lung apices are normal. Soft tissues: Unremarkable. CT/CT cervical spin wo con* [id number] IMPRESSION: 1. No acute fracture or subluxation of the cervical spine. 2. Anterior and posterior cervical fusion hardware are stable and intact.
--- NOTE | 2023-02-03 10:10 | XRR_ITS ---
PROCEDURE INFORMATION: Exam: XR Chest Exam date and time: 02/03/2023 10:33 AM Age: 57 years old Clinical indication: Injury or trauma; Fall; Blunt trauma (contusions or hematomas); Prior surgery; Surgery date: 6+ months; Surgery type: Neck and back TECHNIQUE: Imaging protocol: Radiologic exam of the chest. Views: 1 view. COMPARISON: CR (CHEST, ) 02/01/2023 10:09 PM FINDINGS: Lungs: Unremarkable. No consolidation. Pleural spaces: Unremarkable. No pleural effusion. No pneumothorax. Heart/Mediastinum: Unremarkable. No cardiomegaly. Bones/joints: Partially imaged anterior and posterior cervical fusion. XR/XR chest 1V portable [id number] IMPRESSION: No acute cardiopulmonary findings.
[2023-02-03 10:25] LABS: Basophils % 0.4 %; Eosinophils # 0.1 10^3/uL (0.0-0.8); Eosinophils % 0.8 %; Hemoglobin 15.6 g/dL (11.7-16.6); Lymphocytes # 1.8 10^3/uL (0.8-4.8); Lymphocytes % 16.1 %; Mean Corpuscular HGB Conc 32.5 g/dL (30.0-36.0); Mean Corpuscular Hemoglobin 29.1 pg (28.0-34.0); Mean Corpuscular Volume 89.6 fl (80-94); Mean Platelet Volume 9.2 fL (7.4-10.4); Monocytes # 0.8 10^3/uL (0.2-0.9); Monocytes % 6.9 %; Neutrophils # 8.15 10^3/uL (1.8-7.7); Neutrophils % 75.2 %; Nucleated Red Blood Cells % 0 %; Platelet Count 269 10^3/cmm (130-400); Red Blood Count 5.36 10^6/uL (4.1-5.3); Red Cell Distribution Width 14.8 % (12.1-15.1); White Blood Count 10.8 10^3/uL (4.0-10.0)
--- NOTE | 2023-02-03 11:10 | ECG_ITS ---
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 Measurements Intervals [place] Rate: 90 P: 56 AK: 163 QRS: 14 QRSD: 85 T: 48 QT: 380 QTc: 465 Interpretive Statements SINUS RHYTHM NONSPECIFIC T-WAVE ABNORMALITY Compared to ECG 02/01/2023 22:22:53 T-wave abnormality now present Supraventricular rhythm no longer present ST (T wave) deviation no longer present Electronically Signed On 02-03-2023 13:22:59 CDT by Miguelina Gupta M.D. [id number]
[2023-02-03 11:26] LABS: Blood Urea Nitrogen 10 mg/dL (6-20); Calcium 8.8 mg/dL (8.5-10.5); Carbon Dioxide 29 mmol/L (22-29); Chloride 99 mmol/L (98-107); Glomerular Filtration Rate 99.3 mL/min (90-130); Glucose 157 mg/dL (65-115); Osmolality Calculated 290 mOsm/kg (285-295); Sodium 139 mmol/L (136-145)
[2023-02-03] MEDS: HYDROmorphone 1 mg/mL INJ 1 mL IVP (11:34)
--- NOTE | 2023-02-03 11:34 | ED_ITS ---
HPI - Fall General: Chief Complaint: Fall Stated Complaint: FALL; NUMBNESS Time Seen by Provider: 02/03/23 10:00 History of Present Illness: Patient is a 57-year-old man with chronic neck thoracic and back pain that presents to the emergency department today after a fall from standing. Patient reports weakness in legs as well as upper extremities. Reports [id number] or prickly sensation in bilateral upper extremities and bilateral feet. He reports this pain is new. He reports he only has sensation in the right forearm. Patient has undergone numerous spine procedures and is currently managed by pain management Associated symptoms-after fall: Denies abdominal pain, chest pain, confusion, difficulty walking, headache(s), hematuria or neck pain Review of Systems General: Reports: 10 or more systems reviewed and unremarkable except in HPI and below Const: Denies: fever(s), chills, change in appetite, change in weight, fatigue or malaise Eyes: Denies: change in vision, eye discomfort, eye discharge or eye redness ENMT: Denies: throat pain, enlarged tonsils, odynophagia, hoarseness, ear or mastoid pain, ear discharge, change in hearing, tinnitus, nasal discharge, nasal congestion, post nasal drip or sinus pain Card: Denies: chest pain, palpitations, irregular heart rhythm, edema, dyspnea on exertion, orthopnea or leg pain with exertion Resp: Denies: dyspnea, productive cough, non-productive cough, wheezing, stridor or chest congestion GI: Denies: abdominal pain, nausea, vomiting, dysphagia, diarrhea, constipation, bloating, GI cramping or hematochezia : Denies: flank pain, dysuria, urinary frequency, urinary urgency, urinary hesitancy, oliguria or hematuria Musc: Denies: neck pain, back pain, extremity pain, joint pain, joint swelling, joint redness, joint warmth or muscle weakness Skin/Breast: Denies: rash, pruritus, erythema, photosensitivity or new lesions Neuro: Denies: headache(s), numbness in extremities, weakness in extremities, sensory changes, lack of coordination, difficulty walking, frequent falls, dizziness, confusion, Slurred speech present, difficulty communicating thoughts, seizure-like activity or involuntary movements Endo: Denies: polyuria, polydipsia or tired all the time [place]/Lymph: Denies: easy bruising or easy bleeding PFSH ED PFSH: Medical History Anxiety and depression CAD (coronary artery disease) Chewing tobacco nicotine dependence Age [age] (currently) Chronic right shoulder pain DDD (degenerative disc disease) Decreased glomerular filtration rate (GFR) Fusion of lumbar spine Gout Hearing loss Hypertension Left foot infection Metatarsus adductus of both feet Migraines Osteoarthritis Parkinsons disease Pes planus of both feet Polyp of tongue Right foot infection Syncope TIA (transient ischemic attack) Surgical History History of back surgery x6 different surgeries on the spine History of esophagogastroduodenoscopy (EGD) 2009, repeat 12/27/2022 no abnormality, bx done History of total knee arthroplasty Left TKA x2 revision needed due to loosening of hardware, no history of in fection Hx of bilateral hip replacements 3 on right hip and 0 left Hx of colonoscopy with polypectomy 2009, repeat 12/27/2022 with polyps, next in 5 years S/P cervical spinal fusion Status post surgery Family History Father Stroke Heart attack Brother Hypertension Sister Heart attack Social History Smoking and tobacco status: current every day smoker (chewing) smokeless tobacco Smokeless tobacco user: chewing tobacco Alcohol intake: former Desire information about alcohol rehabilitation?: No Substance/Drug Use: current Substance/Drug use frequency: other Other substance/drug use details: medical marijuana Desire information about substance/drug rehabilitation?: No Caregiver/support person: No Lives independently: Yes Household members: none Marital status: Single Highest education level completed: Some College, No Degree service: No Current occupational status: retired and disabled Do you think of yourself as: Straight/Heterosexual Current gender identity: Male Physical Exam Const: COMMON NORMALS: no acute distress, patient oriented x3 and alert GENERAL APPEARANCE: cooperative ORIENTATION/CONSCIOUSNESS: Yes awake, Yes oriented to person, Yes oriented to place and Yes oriented to time HENMT: COMMON NORMALS: normocephalic and atraumatic HEAD & SCALP: normocephalic and atraumatic FACE & SINUS: normal facial exam MOUTH: Normal oral and palatal mucosa present THROAT: posterior oropharynx normal Eye: COMMON NORMALS: Equal, round and reactive pupils present, EOMs intact bilaterally, conjunctivae normal and no scleral icterus GENERAL EYE: appearance normal, both eyes and all related structures ALIGNMENT: Yes alignment normal PERIORBITAL: periorbital findings normal CONJUNCTIVA: Yes conjunctivae normal PUPIL: Yes Equal, round and reactive pupils present Neck/C-Spine: COMMON NORMALS: negative for full ROM GENERAL: Yes normal v isual inspection, Yes trachea midline, No anterior neck swelling, No lymphadenopathy, Yes tender, No torticollis and No tracheal deviation CERVICAL SPINE: Yes pain with cervical ROM, Yes Cervical spine tenderness, Yes Trapezius muscle tenderness and Yes collar present Lymph: LYMPHATIC: no lymphadenopathy noted Chest: COMMONS NORMALS: normal inspection of the chest Breast/axilla inspection: Yes no chest deformity, asymmetry, normal contours, no nodules, masses, tenderness Resp: COMMON NORMALS: normal respiratory effort, No retractions, No use of accessory muscles and clear to auscultation bilaterally EFFORT & INSPECTION: Yes able to speak in complete sentences and Yes symmetric chest movement AUSCULTATION: clear to auscultation bilaterally Cardio: COMMON NORMALS: regular rate, regular rhythm and Peripheral pulses 2+ throughout RATE: regular rate RHYTHM: regular rhythm PERIPHERAL PULSES: Peripheral pulses 2+ throughout GI: COMMON NORMALS: Normal to inspection, nondistended, normoactive bowel sounds present, Soft to palpation, non-tender and No hepatosplenomegaly present INSPECTION: Yes normal to inspection AUSCULTATION: Yes normoactive bowel sounds PALPATION: Yes Soft to palpation and Yes No hepatosplenomegaly present RECTAL EXAM: Yes deferred Back/Pelvis: GENERAL BACK: Yes scar(s) and Yes tenderness THORACIC SPINE/UPPER BACK: Yes pain with ROM LUMBAR SPINE/LOWER BACK: Yes ROM limited, Yes lumbar spinal tenderness, No straight leg raise positive right and Yes straight leg raise positive left Extremity: COMMON NORMALS: normal to inspection GENERAL: Yes normal exam except as noted Neuro: COMMON NORMALS: patient oriented x3 SENSORIUM/ORIENTATION: Yes alert, Yes oriented to person, Yes oriented to place and Yes oriented to time CRANIAL NERVES: Yes CN normal except as noted Psych: COMMON NORMALS: mental status grossly normal, Normal thought process present, cooperative, activity/motor behavior normal, denies homicidal ideation and denies suicidal ideation THOUGHT PROCESS: Normal thought process present Skin: COMMON NORMALS: no rashes or lesions noted, no wounds and turgor normal GENERAL SKIN EXAM: no rashes or lesions noted and turgor normal Course Vital Signs: Vital signs: Vital Signs Temperature 98.0 F 02/03/23 10:26 Pulse Rate 87 02/03/23 12:38 Respiratory Rate 15 02/03/23 12:38 Blood Pressure 175/113 02/03/23 12:38 Pulse Oximetry 95 02/03/23 12:38 Oxygen Delivery Me thod Room Air 02/03/23 12:38 MDM - Fall Medical Decision Making Patient was evaluated in the emergency department due to complaints of cervical, thoracic, lumbar back pain following an episode of weakness in bilateral lower extremities that resulted in a fall. Patient was assisted off the ground into a wheelchair by a friend visiting. He is usually ambulatory without assistive devices but recently had some sort of a foot infection that required debridement. He is now using a wheelchair to mo bilize. Patient underwent imaging of his cervical, thoracic, lumbar spine as well as a chest x-ray. He ultimately underwent an EKG due to a questionable arrhythmia on the monitor that ended up being artifact due to lead placement. EKG that was completed at 1110 revealed a sinus rhythm with a ventricular rate of 90 beats a minute and a QTc of 427. No sign of ectopy, ST elevation or abnormal T wave inversion. Laboratory studies that were obtained revealed a potassium of 3.0 and a mild elevation in white blood cell count. No anemias or significant electrolyte disturbance outside of the potassium. Patient continues to have midline cervical tenderness with some mild left upper extremity weakness with unknown chronicity. His lower back pain and left lower extremity weakness has unknown chronicity as well. I attempted to obtain MR imaging of his cervical and lumbar spine but due to the hardware present it is unlikely we would be able to get an adequate image. I did speak with the patient about this who believes he can arrange for adequate follow-up with Dr. Moon on Saturday. I am going to leave him in a cervical collar at this time a Breg collar was obtained from PT. The patient is to wear this at all times until appropriate imaging can be obtained and followed up on. Patient is agreeable. I did treat his pain with Dilaudid and a muscle relaxer. Prior to treatment though we evaluated his ability to ambulate with a walker as well as transfer to a wheelchair. Patient was able to safely do so per ER staff. Patient will be going home with a friend/family member Patient is to follow-up with Dr. Moon as discussed. He may return to the emergency department for new, concerning, worsening symptoms All questions answered Lab Data 02/03/23 10:18 02/03/23 11:00 Radiology Impressions Cervical Spine CT 02/03/23 10:08 IMPRESSION: 1. No acute fracture or subluxation of the cervical spine. 2. Anterior and posterior cervical fusion hardware are stable and intact. Lumbar Spine CT 02/03/23 10:08 IMPRESSION: 1. No acute fracture or dislocation in the lumbar spine. 2. Left posterior carissa and screw fusion of L4-L5 with intervertebral disc spacer appears intact and unchanged in alignment compared to 12/30/2021. Thoracic Spine CT 02/03/23 10:08 IMPRESSION: No acute fracture or dislocation in the thoracic spine. Chest X-Ray 02/03/23 10:10 IMPRESSION: No acute cardiopulmonary findings. Laboratory Results WBC 10.8 10^3/uL (4.0-10.0) H 02/03/23 10:18 RBC 5.36 10^6/uL (4.1-5.3) H 02/03/23 10:18 Hgb 15.6 g/dL (11.7-16.6) 02/03/23 10:18 Hct 48.0 % (42.0-52.0) 02/03/23 10:18 MCV 89.6 fl (80-94) 02/03/23 10:18 MCH 29.1 pg (28.0-34.0) 02/03/23 10:18 MCHC 32.5 g/dL (30.0-36.0) 02/03/23 10:18 RDW 14.8 % (12.1-15.1) 02/03/23 10:18 Plt Count 269 10^3/cmm (130-400) 02/03/23 10:18 MPV 9.2 fL (7.4-10.4) 02/03/23 10:18 Neut % (Auto) 75.2 % 02/03/23 10:18 Lymph % (Auto) 16.1 % 02/03/23 10:18 [place] % (Auto) 6.9 % 02/03/23 10:18 Eos % (Auto) 0.8 % 02/03/23 10:18 Baso % (Auto) 0.4 % 02/03/23 10:18 Neut # (Auto) 8.15 10^3/uL (1.8-7.7) H 02/03/23 10:18 Lymph # (Auto) 1.8 10^3/uL (0.8-4.8) 02/03/23 10:18 [place] # (Auto) 0.8 10^3/uL (0.2-0.9) 02/03/23 10:18 Eos # (Auto) 0.1 10^3/uL (0.0-0.8) 02/03/23 10:18 Baso # (Auto) 0.0 10^3/uL (0.0-0.1) 02/03/23 10:18 Nucleated RBC % (auto) 0 % 02/03/23 10:18 Nucleated RBCs # 0.0 /100WBC 02/03/23 10:18 Sodium 139 mmol/L (136-145) 02/03/23 11:00 Potassium 3.0 mmol/L (3.5-5.1) L 02/03/23 11:00 Chloride 99 mmol/L (98-107) 02/03/23 11:00 Carbon Dioxide 29 mmol/L (22-29) 02/03/23 11:00 Anion Gap 14.0 (5-19) 02/03/23 11:00 BUN 10 mg/dL (6-20) 02/03/23 11:00 Creatinine 0.8 mg/dL (0.7-1.2) 02/03/23 11:00 GFR Calculation 99.3 mL/min (90-130) 02/03/23 11:00 Glucose 157 mg/dL (65-115) H 02/03/23 11:00 Calculated Osmolality 290 mOsm/kg (285-295) 02/03/23 11:00 Calcium 8.8 mg/dL (8.5-10.5) 02/03/23 11:00 Discharge Plan Discharge Patient Disposition: Home Clinical Impression: Cervical back pain with evidence of disc disease, Cervical disc disorder with radiculopathy Condition: Stable Prescriptions: New methocarbamol 500 mg tablet 500 mg PO Q6H Qty: 40 0RF gabapentin 300 mg capsule 300 mg PO Q8H Qty: 30 0RF No Action omeprazole 40 mg capsule,delayed release(DR/EC) 40 mg PO QAM Qty: 90 1RF prednisone 20 mg tablet 20 mg PO DAILY acetaminophen 500 mg Tablet 1,000 mg PO BID colchicine [Colcrys] 0.6 mg tablet 0.6 mg PO DAILY PRN (Reason: gout) Aspir-81 81 mg Tablet,Delayed Release (Dr/Ec) 81 mg PO DAILY carbidopa-levodopa 25-250 mg tablet 2 - 2.5 tab PO Q6H metoprolol tartrate 50 mg tablet 50 mg PO BID Discharge Orders: Discharge ED (Routine); Ordered 02/03/23 Ordered By: Leonila Mendoza Other Ambulatory Orders: DME: Miscellaneous (Order) Location: None Selected Ordered By: Leonila Mendoza Referrals: Wali Moon MD [Primary Care Provider] - Discharge Diet: Advance as tolerated Discharge Activity: Resume usual activity Patient Instructions: Cervical Radiculopathy (ED), [place] J Collar (ED), Acute Neck Pain (ED), Pain Management Activity Restrictions/Additional Instructions: Call Dr. Moon office Saturday to establish follow-up appointment. You will need additional imaging to further evaluate your cervical and lumbar complaints. This may be an MRI of the cervical and lumbar spine or it could be a CT myelogram. Wear your cervical collar at all times. You may change into that rigid collar provided for showers. No lifting pushing or pulling greater than 10 pounds Use the gabapentin and Robaxin as needed for pain Coding Level of Care Code ED Equipment Operator/Laborer/Supervisor for Mu Pressley
[2023-02-03] MEDS: potassium chloride ER 20 mEq Tablet 40 MEQ PO (12:14)
[2023-02-03] MEDS: methocarbamol 750 mg Tablet PO (13:09)
--- NOTE | 2023-02-03 14:09 | PC.PHAR ---
pt states he takes care of his own medications-pt states he takes carbidopa-levodopa 25-250mg takes 2-2.5 tabs po q6h ext shows last filled 01/16/23 30d/s 1.5-2 tabs q6h pt states the dr increased and that hes been taking 2-2.5 tabs-pt states amlodipine 10mg daily,zoloft 25mg daily,and hydroxyzine hcl 25mg were all dced
[2023-02-03] MEDS: HYDROmorphone 1 mg/mL INJ 1 mL 0.5 MG IVP (15:08)
== END 2023-02-03 15:52 | disposition home or self-care (01) ==
PROVIDERS: Emergency Provider Nurse Practitioner; PCP Family Medicine Adult Medicine
DX: M50.10 Cervical disc disorder with radiculopathy, unspecified cervical region (principal)
CPT/HCPCS: 71045; 72125; 72128; 72131; 80048; 85025; 93005; 96374; 96376; 97760; 99285; J1170; L0172

== ENCOUNTER 2023-02-06 00:10 | Emergency (ER) | payer MEDICARE, MEDICAID, SELFPAY ==
[2023-02-06 00:11] VITALS: BP 133/106; PULSE 99; RESP 18; TEMP 36.7; O2SAT 97; BMI 29.1
--- NOTE | 2023-02-06 00:13 | XRR_ITS ---
PROCEDURE INFORMATION: Exam: XR Chest Exam date and time: 02/06/2023 12:39 AM Age: 57 years old Clinical indication: Pain; Chest pressure; Additional info: Chest pain TECHNIQUE: Imaging protocol: Radiologic exam of the chest. Views: 1 view. COMPARISON: CR (CHEST, ) 02/03/2023 10:33 AM FINDINGS: Lungs: Clear, symmetrically inflated lungs. Pleural spaces: No pleural effusion. No pneumothorax. Heart/Mediastinum: Cardiac silhouette is normal in size for technique. Bones/joints: Cervical fusion hardware noted. XR/XR chest 1V portable [id number] IMPRESSION: No acute cardiopulmonary abnormality.
--- NOTE | 2023-02-06 00:14 | ECG_ITS ---
[facility] Test Date: 2023-02-06 Pat Name: Jude Burden Department: Room: Gender: Male Painter Set: : 1965 Requested By: Heidi Abreu Order Number: [id number] Chalo MD: Kalia Duff M.D. Measurements Intervals [place] Rate: 95 P: 45 NV: 150 QRS: 11 QRSD: 85 T: 32 QT: 359 QTc: 452 Interpretive Statements SINUS RHYTHM Compared to ECG 02/03/2023 11:10:34 T-wave abnormality no longer present Electronically Signed On 02-06-2023 20:02:23 CDT by Kalia Duff M.D. [id number]
--- NOTE | 2023-02-06 00:24 | W.ED.CHESTPA ---
HPI - Chest Pain General: Chief Complaint: Chest Pain Stated Complaint: CP Time Seen by Provider: 02/06/23 00:13 Source: patient and EMS Mode of arrival: EMS Limitations: no limitations History of Present Illness: 57-year-old male 57-year-old male is very well-known to the ER has been seen here multiple times with chest pain states started having chest pain roughly 2 hours ago. States is a sharp pain in the center of his chest denies any worsening proving factors its been constant nature. He denies any vomiting or diarrhea denies any shortness of breath. Associated symptoms: Deny abdominal pain, dyspnea, fever(s), nausea or vomiting Review of Systems Const: Denies: fever(s), chills, body aches or change in appetite Eyes: Denies: blurry vision or eye discomfort ENMT: Denies: throat pain or dental pain Card: Reports: chest pain Resp: Denies: dyspnea GI: Denies: abdominal pain, nausea, vomiting or diarrhea Musc: Denies: neck pain or back pain Skin/Breast: Denies: rash Neuro: Denies: headache(s) PFSH ED PFSH: Medical History Anxiety and depression CAD (coronary artery disease) Chewing tobacco nicotine dependence Age [age] (currently) Chronic right shoulder pain DDD (degenerative disc disease) Decreased glomerular filtration rate (GFR) Fusion of lumbar spine Gout Hearing loss Hypertension Left foot infection Metatarsus adductus of both feet Migraines Osteoarthritis Parkinsons disease Pes planus of both feet Polyp of tongue Right foot infection Syncope TIA (transient ischemic attack) Surgical History History of back surgery x6 different surgeries on the spine History of esophagogastroduodenoscopy (EGD) 2009, repeat 12/27/2022 no abnormality, bx done History of total knee arthroplasty Left TKA x2 revision needed due to loosening of hardware, no history of infection Hx of bilateral hip replacements 3 on right hip and 0 left Hx of colonoscopy with polypectomy 2009, repeat 12/27/2022 with polyps, next in 5 years S/P cervical spinal fusion Status post surgery Family History Father Stroke Heart attack Brother Hypertension Sister Heart attack Social History Smoking and tobacco status: current every day smoker (chewing) smokeless tobacco Smokeless tobacco user: chewing tobacco Alcohol intake: former Desire information about alcohol rehabilitation?: No Substance/Drug Use: current Substance/Drug use frequency: other Other substance/drug use details: medical marijuana Desire information about substance/drug rehabilitation?: No Caregiver/support person: No Lives independently: Yes Household members: none Marital status: Single Highest education level completed: Some College, No Degree service: No Current occupational status: retired and disabled Do you think of yourself as: Straight/Heterosexual Current gender identity: Male Physical Exam Const: COMMON NORMALS: no acute distress, patient oriented x3 and healthy appearing HENMT: COMMON NORMALS: normocephalic and atraumatic HEAD & SCALP: normocephalic and atraumatic Eye: COMMON NORMALS: Equal, round and reactive pupils present and EOMs intact bilaterally PUPIL: Yes Equal, round and reactive pupils present Neck/C-Spine: COMMON NORMALS: full ROM and supple Chest: COMMONS NORMALS: normal inspection of the chest and normal palpation of entire chest wall Resp: COMMON NORMALS: normal respiratory effort, No retractions, No use of accessory muscles and clear to auscultation bilaterally AUSCULTATION: clear to auscultation bilaterally Cardio: COMMON NORMALS: regular rate, regular rhythm and No murmurs present (Cardio) RATE: regular rate RHYTHM: regular rhythm GI: COMMON NORMALS: Normal to inspection, nondistended, normoactive bowel sounds present, Soft to palpation, non-tender and no masses PALPATION: Yes Soft to palpation Extremity: COMMON NORMALS: normal to inspection and full ROM Neuro: COMMON NORMALS: patient oriented x3, moves all extremities and no focal motor deficits Psych: COMMON NORMALS: mental status grossly normal, Normal thought process present and cooperative THOUGHT PROCESS: Normal thought process present Skin: COMMON NORMALS: no rashes or lesions noted and no wounds GENERAL SKIN EXAM: no rashes or lesions noted Course Vital Signs: Vital signs: Vital Signs Temperature 98.1 F 02/06/23 01:44 Pulse Rate 86 02/06/23 01:44 Respiratory Rate 16 02/06/23 01:44 Blood Pressure 157/102 02/06/23 01:44 Pulse Oximetry 89 L 02/06/23 01:44 Oxygen Delivery Me thod Room Air 02/06/23 00:11 MDM - Chest Pain Medical Decision Making Patient presents here with chest pains atypical in nature patient's troponin along with EKG and x-ray here are all normal 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 Medical Records I reviewed the patient's medical records. Lab Data I reviewed the patient's lab results. 02/06/23 00:06 02/06/23 00:06 Radiology Impressions Chest X-Ray 02/06/23 00:13 IMPRESSION: No acute cardiopulmonary abnormality. Laboratory Results WBC 12.87 10^3/uL (3.29-11.43) H 02/06/23 00:06 RBC 5.20 10^6/uL (3.85-5.65) 02/06/23 00:06 Hgb 14.70 g/dL (11.27-16.99) 02/06/23 00:06 Hct 45.4 % (37-53) 02/06/23 00:06 MCV 87.3 fl (82-101) 02/06/23 00:06 MCH 28.3 pg (27-33) 02/06/23 00:06 MCHC 32.4 g/dL (30-55) 02/06/23 00:06 RDW 14.7 % (12.1-15.1) 02/06/23 00:06 Plt Count 280 10^3/cmm (157-399) 02/06/23 00:06 MPV 10.6 fL (7.4-10.4) H 02/06/23 00:06 Neut % (Auto) 72.3 % 02/06/23 00:06 Lymph % (Auto) 20.3 % 02/06/23 00:06 [place] % (Auto) 5.7 % 02/06/23 00:06 Eos % (Auto) 1.0 % 02/06/23 00:06 Baso % (Auto) 0.2 % 02/06/23 00:06 Neut # (Auto) 9.29 10^3/uL (1.8-7.7) H 02/06/23 00:06 Lymph # (Auto) 2.6 10^3/uL (0.8-4.8) 02/06/23 00:06 [place] # (Auto) 0.7 10^3/uL (0.2-0.9) 02/06/23 00:06 Eos # (Auto) 0.1 10^3/uL (0.0-0.8) 02/06/23 00:06 Baso # (Auto) 0.0 10^3/uL (0.0-0.1) 02/06/23 00:06 Nucleated RBC % (auto) 0 % 02/06/23 00:06 Nucleated RBCs # 0.0 /100WBC 02/06/23 00:06 Sodium 137 mmol/L (136-145) 02/06/23 00:06 Potassium 3.4 mmol/L (3.5-5.1) L 02/06/23 00:06 Chloride 96 mmol/L (98-107) L 02/06/23 00:06 Carbon Dioxide 29 mmol/L (22-29) 02/06/23 00:06 Anion Gap 15.4 (5-19) 02/06/23 00:06 BUN 11 mg/dL (6-20) 02/06/23 00:06 Creatinine 0.7 mg/dL (0.7-1.2) 02/06/23 00:06 GFR Calculation 115.8 mL/min (90-130) 02/06/23 00:06 Glucose 128 mg/dL (65-115) H 02/06/23 00:06 Calculated Osmolality 285 mOsm/kg (285-295) 02/06/23 00:06 Calcium 9.8 mg/dL (8.5-10.5) 02/06/23 00:06 Total Bilirubin 0.5 mg/dL (0.15-1.2) 02/06/23 00:06 AST 9 U/L (0-40) 02/06/23 00:06 ALT < 5 U/L (0-41) 02/06/23 00:06 Alkaline Phosphatase 81 U/L (40-130) 02/06/23 00:06 Troponin T Baseline 9 ng/L (0-15) 02/06/23 00:06 NT-Pro-B Natriuret Pep 85 pg/mL (0-125) 02/06/23 00:06 Total Protein 6.5 g/dL (6.6-8.7) L 02/06/23 00:06 Albumin 4.1 g/dL (3.5-5.2) 02/06/23 00:06 Globulin 2.4 g/dL (1.3-4.6) 02/06/23 00:06 EKG Data EKG 1: I personally reviewed and interpreted this EKG as follows: EKG interpretation date: 02/06/23 EKG interpretation time: 00:17 Interpretation: nsr hr [address] or t wave abnormalities qrs 85 qtc 412 Discharge Plan Discharge Patient Disposition: Home Clinical Impression: Chest pain Condition: Stable Prescriptions: No Action omeprazole 40 mg capsule,delayed release(DR/EC) 40 mg PO QAM Qty: 90 1RF prednisone 20 mg tablet 20 mg PO DAILY acetaminophen 500 mg Tablet 1,000 mg PO BID colchicine [Colcrys] 0.6 mg tablet 0.6 mg PO DAILY PRN (Reason: gout) methocarbamol 500 mg tablet 500 mg PO Q6H Qty: 40 0RF gabapentin 300 mg capsule 300 mg PO Q8H Qty: 30 0RF Aspir-81 81 mg Tablet,Delayed Release (Dr/Ec) 81 mg PO DAILY carbidopa-levodopa 25-250 mg tablet 2 - 2.5 tab PO Q6H metoprolol tartrate 50 mg tablet 50 mg PO BID Discharge Orders: Discharge ED (Routine); Ordered 02/06/23 Ordered By: Heidi Abreu Referrals: Wali Moon MD [Primary Care Provider] - Discharge Diet: Advance as tolerated Discharge Activity: Resume usual activity Patient Instructions: Chest Pain (ED) Coding Level of Care Code ED Helper Animal Laboratory for Emilyg Wendie
[2023-02-06] MEDS: ondansetron 2 mg/ML SDV 2 mL 4 MG IVP (00:25)
[2023-02-06] MEDS: morphine 4 mg/mL SDV 1 mL IVP (00:25)
[2023-02-06 00:52] LABS: Basophils % 0.2 %; Eosinophils # 0.1 10^3/uL (0.0-0.8); Hematocrit 45.4 % (37-53); Lymphocytes # 2.6 10^3/uL (0.8-4.8); Lymphocytes % 20.3 %; Mean Corpuscular HGB Conc 32.4 g/dL (30-55); Mean Corpuscular Hemoglobin 28.3 pg (27-33); Mean Corpuscular Volume 87.3 fl (82-101); Mean Platelet Volume 10.6 fL (7.4-10.4); Monocytes # 0.7 10^3/uL (0.2-0.9); Monocytes % 5.7 %; Neutrophils # 9.29 10^3/uL (1.8-7.7); Neutrophils % 72.3 %; Nucleated Red Blood Cells % 0 %; Platelet Count 280 10^3/cmm (157-399); Red Cell Distribution Width 14.7 % (12.1-15.1); White Blood Count 12.87 10^3/uL (3.29-11.43)
[2023-02-06 01:14] LABS: Troponin(5th) Baseline 9 ng/L (0-15)
[2023-02-06 01:23] LABS: Alanine Aminotransferase < 5 U/L (0-41); Albumin Level 4.1 g/dL (3.5-5.2); Alkaline Phosphatase 81 U/L (40-130); Anion Gap 15.4 (5-19); Aspartate Amino Transferase 9 U/L (0-40); Blood Urea Nitrogen 11 mg/dL (6-20); Calcium 9.8 mg/dL (8.5-10.5); Carbon Dioxide 29 mmol/L (22-29); Chloride 96 mmol/L (98-107); Globulin 2.4 g/dL (1.3-4.6); Glomerular Filtration Rate 115.8 mL/min (90-130); Glucose 128 mg/dL (65-115); NT Pro B Type Natriuretic Pept 85 pg/mL (0-125); Osmolality Calculated 285 mOsm/kg (285-295); Potassium 3.4 mmol/L (3.5-5.1); Sodium 137 mmol/L (136-145); Total Bilirubin 0.5 mg/dL (0.15-1.2); Total Protein 6.5 g/dL (6.6-8.7)
[2023-02-06] MEDS: LORazepam 2 mg/mL INJ 1 mL 1 MG IVP (01:27)
[2023-02-06 01:32] VITALS: BP 157/102; PULSE 86; RESP 16; O2SAT 89
[2023-02-06 01:44] VITALS: BP 157/102; PULSE 86; RESP 16; TEMP 36.7; O2SAT 89
[2023-02-06 02:03] LABS: Troponin 5 2HR 6.79 ng/L (0-15); Troponin 5 2HR Delta -2.21 ABS# (0-10)
== END 2023-02-06 01:45 | disposition home or self-care (01) ==
PROVIDERS: Nurse Practitioner Family; Emergency Provider Emergency Medicine; PCP Family Medicine Adult Medicine
DX: R07.9 Chest pain, unspecified (principal); Z79.82 Long term (current) use of aspirin; F17.220 Nicotine dependence, chewing tobacco, uncomplicated; I25.10 Atherosclerotic heart disease of native coronary artery without angina pectoris; I10 Essential (primary) hypertension; G20 Parkinson's disease; Z86.73 Personal history of transient ischemic attack (TIA), and cerebral infarction without residual deficits
CPT/HCPCS: 71045; 80053; 83880; 84484; 85025; 93005; 96374; 96375; 99285; J2060; J2270; J2405

== ENCOUNTER 2023-02-09 18:17 | Emergency (ER) | payer MEDICARE, MEDICAID, SELFPAY ==
--- NOTE | 2023-02-09 18:20 | ECG_ITS ---
[facility] Test Date: 2023-02-09 Pat Name: Jude Burden Department: Room: Gender: Male Pouncer Machine: : [id number] Requested By: Saeid Roque Order Number: [id number] Isabel MD: Rashad El M.D. Measurements Intervals [place] Rate: 114 P: 3 [place]: 133 QRS: 79 QRSD: 86 T: 47 QT: 313 QTc: 431 Interpretive Statements SINUS TACHYCARDIA NONSPECIFIC ST & T-WAVE ABNORMALITY Compared to ECG 02/06/2023 00:17:54 T-wave abnormality now present Sinus rhythm no longer present Electronically Signed On 02-10-2023 15:21:42 CDT by Rashad El M.D. [id number]
[2023-02-09 18:21] VITALS: BP 130/84; PULSE 117; RESP 18; O2SAT 99; BMI 29.1
--- NOTE | 2023-02-09 19:10 | XRR_ITS ---
PROCEDURE INFORMATION: Exam: XR Chest Exam date and time: 02/09/2023 7:45 PM Age: 57 years old Clinical indication: Injury or trauma; Other: Cp SOB TECHNIQUE: Imaging protocol: Radiologic exam of the chest. Views: 1 view. COMPARISON: CR (CHEST, ) 02/06/2023 12:39 AM FINDINGS: Lungs: Clear, symmetrically inflated lungs. Pleural spaces: No pleural effusion. No pneumothorax. Heart/Mediastinum: Cardiac silhouette is normal in size for technique. Bones/joints: Cervical fusion hardware is partly visualized. XR/XR chest 1V portable [id number] IMPRESSION: No acute cardiopulmonary abnormality.
--- NOTE | 2023-02-09 19:34 | W.ED.DIZZY ---
HPI - Dizziness General: Chief Complaint: Dizziness Stated Complaint: cp Time Seen by Provider: 02/09/23 18:35 History of Present Illness: HPI Narrative: 57-year-old male has been seen multiple times for similar complaints. He presents with chest pain, facial numbness down to his chest, shortness of breath, and a syncopal episode at home. He is hyperventilating on interview, and shaky. He states I want to stop having to come here, I just want to know what is wrong . He says that yesterday he felt okay, but today he has been in bed all day due to not feeling well. Associated symptoms: Reports chest pain, headache(s), nausea and palpitations; Denies vomiting Associated neuro symptoms: Reports numbness in extremities Review of Systems Const: Denies: fever(s) Eyes: Reports: blurry vision ENMT: Denies: throat pain Card: Reports: chest pain and palpitations Resp: Reports: dyspnea; Denies: productive cough or non-productive cough GI: Reports: nausea; Denies: vomiting Musc: Reports: back pain Skin/Breast: Denies: rash Neuro: Reports: headache(s), numbness in extremities, weakness in extremities (Bilateral lower), difficulty walking, dizziness and involuntary movements (Chronic tremor) Psych: Reports: anxiety PFSH ED PFSH: Medical History Anxiety and depression CAD (coronary artery disease) Chewing tobacco nicotine dependence Age [age] (currently) Chronic right shoulder pain DDD (degenerative disc disease) Decreased glomerular filtration rate (GFR) Fusion of lumbar spine Gout Hearing loss Hypertension Left foot infection Metatarsus adductus of both feet Migraines Osteoarthritis Parkinsons disease Pes planus of both feet Polyp of tongue Right foot infection Syncope TIA (transient ischemic attack) Surgical History History of back surgery x6 different surgeries on the spine History of esophagogastroduodenoscopy (EGD) 2009, repeat 12/27/2022 no abnormality, bx done History of total knee arthroplasty Left TKA x2 revision needed due to loosening of hardware, no history of infection Hx of bilateral hip replacements 3 on right hip and 0 left Hx of colonoscopy with polypectomy 2009, repeat 12/27/2022 with polyps, next in 5 years S/P cervical spinal fusion Status post surgery Family History Father Stroke Heart attack Brother Hypertension Sister Heart attack Social History Smoking and tobacco status: current every day smoker (chewing) smokeless tobacco Smokeless tobacco user: chewing tobacco Alcohol intake: former Desire information about alcohol rehabilitation?: No Substance/Drug Use: current Substance/Drug use frequency: other Other substance/drug use details: medical marijuana Desire information about substance/drug rehabilitation?: No Caregiver/support person: No Lives independently: Yes Household members: none Marital status: Single Highest education level completed: Some College, No Degree service: No Current occupational status: retired and disabled Do you think of yourself as: Straight/Heterosexual Current gender identity: Male Physical Exam Const: COMMON NORMALS: no acute distress GENERAL APPEARANCE: cooperative and anxious (Impressively); not ill appearing and not frail appearing HENMT: COMMON NORMALS: normocephalic, atraumatic and Normal external nose present HEAD & SCALP: normocephalic and atraumatic FACE & SINUS: normal facial exam and face symmetric NOSE: Normal external nose present Eye: COMMON NORMALS: Equal, round and reactive pupils present and EOMs intact bilaterally PUPIL: Yes Equal, round and reactive pupils present Neck/C-Spine: GENERAL: Yes trachea midline Chest: CHEST: Yes Symmetrical chest wall rise Resp: COMMON NORMALS: normal respiratory effort, No retractions, No use of accessory muscles and clear to auscultation bilaterally AUSCULTATION: clear to auscultation bilaterally Cardio: COMMON NORMALS: regular rhythm RATE: tachycardic RHYTHM: regular rhythm GI: COMMON NORMALS: Normal to inspection, nondistended, normoactive bowel sounds present Extremity: COMMON NORMALS: no pedal edema Neuro: REZA COMA SCALE: document GCS findings Reza coma scale eye opening: Spontaneous [place] coma scale verbal response: Orientated Reza coma scale motor response: Obey commands [place] coma scale total score: 15 CRANIAL NERVES: Yes CN normal except as noted SPEECH: speech normal SENSORY EXAM: Yes extremities (intact) MOTOR EXAM: Tremors during motor activity present (Facial and bilateral upper extremities) Psych: COMMON NORMALS: speech normal SPEECH: Yes normal speech Skin: NARRATIVE SKIN EXAM: Multiple insect bites to bilateral lower extremities Course Vital Signs: Vital signs: Vital Signs Pulse Rate 100 02/09/23 21:28 Respiratory Rate 19 H 02/09/23 21:28 Blood Pressure 130/84 02/09/23 18:21 Pulse Oximetry 97 02/09/23 21:28 Oxygen Delivery Me thod Room Air 02/09/23 20:44 MDM - Dizziness Medical Decision Making This patient has been seen multiple times. He had multiple work-ups both here as an outpatient. He had a negative cath last year in April. He had a negative CTA at the beginning of this month for pulmonary embolus. He has had negative CTAs of his head and neck as well recently. EKG today shows sinus tachycardia with normal axis normal intervals rate of [address] changes. He is given Ativan and Geodon for hyperventilation syndrome. Laboratories pending. Laboratory workup is not remarkable. Patient is improved after administration of Ativan and Geodon for hyperventilation. You'll be allowed discharge. Outpatient follow-up was strongly encouraged. Lab Data 02/09/23 19:39 02/09/23 19:39 Radiology Impressions Chest X-Ray 02/09/23 19:10 IMPRESSION: No acute cardiopulmonary abnormality. Laboratory Results WBC 12.00 10^3/uL (3.29-11.43) H 02/09/23 19:39 RBC 5.38 10^6/uL (3.85-5.65) 02/09/23 19:39 Hgb 15.50 g/dL (11.27-16.99) 02/09/23 19:39 Hct 47.5 % (37-53) 02/09/23 19:39 MCV 88.3 fl (82-101) 02/09/23 19:39 MCH 28.8 pg (27-33) 02/09/23 19:39 MCHC 32.6 g/dL (30-55) 02/09/23 19:39 RDW 14.4 % (12.1-15.1) 02/09/23 19:39 Plt Count 347 10^3/cmm (157-399) 02/09/23 19:39 MPV 9.4 fL (7.4-10.4) 02/09/23 19:39 Neut % (Auto) 72.8 % 02/09/23 19:39 Lymph % (Auto) 17.1 % 02/09/23 19:39 [place] % (Auto) 7.9 % 02/09/23 19:39 Eos % (Auto) 0.8 % 02/09/23 19:39 Baso % (Auto) 0.4 % 02/09/23 19:39 Neut # (Auto) 8.73 10^3/uL (1.8-7.7) H 02/09/23 19:39 Lymph # (Auto) 2.1 10^3/uL (0.8-4.8) 02/09/23 19:39 [place] # (Auto) 1.0 10^3/uL (0.2-0.9) H 02/09/23 19:39 Eos # (Auto) 0.1 10^3/uL (0.0-0.8) 02/09/23 19:39 Baso # (Auto) 0.1 10^3/uL (0.0-0.1) 02/09/23 19:39 Nucleated RBC % (auto) 0 % 02/09/23 19:39 Nucleated RBCs # 0.0 /100WBC 02/09/23 19:39 Sodium 137 mmol/L (136-145) 02/09/23 19:39 Potassium 3.6 mmol/L (3.5-5.1) 02/09/23 19:39 Chloride 97 mmol/L (98-107) L 02/09/23 19:39 Carbon Dioxide 25 mmol/L (22-29) 02/09/23 19:39 Anion Gap 18.6 (5-19) 02/09/23 19:39 BUN 14 mg/dL (6-20) 02/09/23 19:39 Creatinine 1.3 mg/dL (0.7-1.2) H 02/09/23 19:39 GFR Calculation 56.7 mL/min (90-130) L 02/09/23 19:39 Glucose 115 mg/dL (65-115) 02/09/23 19:39 Calculated Osmolality 285 mOsm/kg (285-295) 02/09/23 19:39 Calcium 9.9 mg/dL (8.5-10.5) 02/09/23 19:39 Total Bilirubin 0.8 mg/dL (0.15-1.2) 02/09/23 19:39 AST 9 U/L (0-40) 02/09/23 19:39 ALT < 5 U/L (0-41) 02/09/23 19:39 Alkaline Phosphatase 82 U/L (40-130) 02/09/23 19:39 Creatine Kinase 34 U/L (39-308) L 02/09/23 19:39 Troponin T Baseline 11 ng/L (0-15) 02/09/23 19:39 Total Protein 6.8 g/dL (6.6-8.7) 02/09/23 19:39 Albumin 4.2 g/dL (3.5-5.2) 02/09/23 19:39 Globulin 2.6 g/dL (1.3-4.6) 02/09/23 19:39 Discharge Plan Discharge Patient Disposition: Home Clinical Impression: Syncope, Chest pain, Hyperventilation syndrome Condition: Stable Prescriptions: No Action omeprazole 40 mg capsule,delayed release(DR/EC) 40 mg PO QAM Qty: 90 1RF prednisone 20 mg tablet 20 mg PO DAILY magnesium oxide 400 mg (241.3 mg magnesium) tablet 400 mg PO DAILY Qty: 30 0RF acetaminophen 500 mg Tablet 1,000 mg PO BID colchicine [Colcrys] 0.6 mg tablet 0.6 mg PO DAILY PRN (Reason: gout) methocarbamol 500 mg tablet 500 mg PO Q6H Qty: 40 0RF gabapentin 300 mg capsule 300 mg PO Q8H Qty: 30 0RF Aspir-81 81 mg Tablet,Delayed Release (Dr/Ec) 81 mg PO DAILY carbidopa-levodopa 25-250 mg tablet 2 - 2.5 tab PO Q6H metoprolol tartrate 50 mg tablet 50 mg PO BID Discharge Orders: Discharge ED (Routine); Ordered 02/09/23 Ordered By: Saeid Schofield Referrals: Wali Moon MD [Primary Care Provider] - Patient Instructions: Chest Pain (ED), Hyperventilation (ED), Syncope (ED), Opioid Safety, Pain Management Activity Restrictions/Additional Instructions: Your work-up in the emergency department did not reveal a heart/cardiac cause of your chest pain or passing out episode this evening. At least some of the symptoms you are experiencing come from heavy breathing, otherwise known as hyperventilation syndrome. This causes a salt level in your blood to drop suddenly, causing numbness to the face and extremities, generalized weakness, even muscle twitching and spasm. You have been treated for this this evening. It is imperative that you follow-up with your doctor. Call Saturday for an appointment this coming week. Coding Level of Care Code ED Vp Of Digital Marketing for Mu Perssley
[2023-02-09 19:44] LABS: Basophils # 0.1 10^3/uL (0.0-0.1); Basophils % 0.4 %; Eosinophils # 0.1 10^3/uL (0.0-0.8); Eosinophils % 0.8 %; Hematocrit 47.5 % (37-53); Lymphocytes # 2.1 10^3/uL (0.8-4.8); Lymphocytes % 17.1 %; Mean Corpuscular HGB Conc 32.6 g/dL (30-55); Mean Corpuscular Hemoglobin 28.8 pg (27-33); Mean Corpuscular Volume 88.3 fl (82-101); Mean Platelet Volume 9.4 fL (7.4-10.4); Monocytes % 7.9 %; Neutrophils # 8.73 10^3/uL (1.8-7.7); Neutrophils % 72.8 %; Nucleated Red Blood Cells % 0 %; Platelet Count 347 10^3/cmm (157-399); Red Blood Count 5.38 10^6/uL (3.85-5.65); Red Cell Distribution Width 14.4 % (12.1-15.1)
--- NOTE | 2023-02-09 19:51 | ECG_ITS ---
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 Measurements Intervals [place] Rate: 101 P: 7 [place]: 124 QRS: 42 QRSD: 79 T: 14 QT: 337 QTc: 438 Interpretive Statements SINUS TACHYCARDIA NONSPECIFIC T-WAVE ABNORMALITY Compared to ECG 02/09/2023 18:22:40 No significant changes Electronically Signed On 02-10-2023 15:21:32 CDT by Rashad El M.D. [id number]
[2023-02-09 20:24] LABS: Troponin(5th) Baseline 11 ng/L (0-15)
[2023-02-09 20:28] LABS: Alanine Aminotransferase < 5 U/L (0-41); Albumin Level 4.2 g/dL (3.5-5.2); Alkaline Phosphatase 82 U/L (40-130); Anion Gap 18.6 (5-19); Aspartate Amino Transferase 9 U/L (0-40); Blood Urea Nitrogen 14 mg/dL (6-20); Calcium 9.9 mg/dL (8.5-10.5); Carbon Dioxide 25 mmol/L (22-29); Chloride 97 mmol/L (98-107); Creatine Phosphokinase 34 U/L (39-308); Globulin 2.6 g/dL (1.3-4.6); Glomerular Filtration Rate 56.7 mL/min (90-130); Glucose 115 mg/dL (65-115); Osmolality Calculated 285 mOsm/kg (285-295); Potassium 3.6 mmol/L (3.5-5.1); Sodium 137 mmol/L (136-145); Total Bilirubin 0.8 mg/dL (0.15-1.2); Total Protein 6.8 g/dL (6.6-8.7)
[2023-02-09] MEDS: LORazepam 2 mg/mL INJ 1 mL 1 MG IM (20:36)
[2023-02-09] MEDS: ziprasidone 20 mg/mL SDV 10 MG IM (20:36)
[2023-02-09 20:44] VITALS: PULSE 89; RESP 16; O2SAT 96
[2023-02-09] MEDS: carbidopa-levodopa 25-250mg Tablet 2 EACH PO (20:55)
[2023-02-09 21:28] VITALS: PULSE 100; RESP 19; O2SAT 97
== END 2023-02-09 21:17 | disposition home or self-care (01) ==
PROVIDERS: Emergency Provider Emergency Medicine; PCP Family Medicine Adult Medicine
DX: R55 Syncope and collapse (principal); F45.8 Other somatoform disorders; R07.9 Chest pain, unspecified; R00.0 Tachycardia, unspecified; Z79.82 Long term (current) use of aspirin; F17.220 Nicotine dependence, chewing tobacco, uncomplicated; I25.10 Atherosclerotic heart disease of native coronary artery without angina pectoris; I10 Essential (primary) hypertension; G20 Parkinson's disease; Z86.73 Personal history of transient ischemic attack (TIA), and cerebral infarction without residual deficits
CPT/HCPCS: 36415; 71045; 80053; 82550; 84484; 85025; 93005; 96372; 99285; J2060; J3486

== ENCOUNTER 2023-03-03 00:11 | Emergency (ER) | payer MEDICARE, MEDICAID, SELFPAY ==
[2023-03-03 00:13] VITALS: BP 129/87; PULSE 82; RESP 18; TEMP 36.8; O2SAT 96; BMI 36.6
--- NOTE | 2023-03-03 00:14 | W.ED.FALL ---
HPI - Fall General: Chief Complaint: Fall Stated Complaint: FALL Time Seen by Provider: 03/03/23 00:13 History of Present Illness: 57-year-old male patient comes in today for complaints of fall injury. Patient reports he slipped in the shower coming back on his butt and hitting the back of his head. Patient has a history of a fusion of cervical spine and lumbar spine. Patient also reports history of repetitive concussions. Patient denies any loss of consciousness. Patient reports some low back pain radiating down his left leg. Patient moves all extremities well. Associated symptoms-after fall: Reports headache(s) and neck pain Review of Systems General: Reports: 10 or more systems reviewed and unremarkable except in HPI and below Musc: Reports: neck pain and back pain Neuro: Reports: headache(s) PFSH ED PFSH: Medical History (Updated 03/03/23 @ 01:46 by LIV Weber) Anxiety and depression CAD (coronary artery disease) Chewing tobacco nicotine dependence Age [age] (currently) Chronic right shoulder pain DDD (degenerative disc disease) Decreased glomerular filtration rate (GFR) Fusion of lumbar spine Gout Hearing loss Hypertension Metatarsus adductus of both feet Migraines Osteoarthritis Parkinsons disease Pes planus of both feet Polyp of tongue TIA (transient ischemic attack) Surgical History History of back surgery x6 different surgeries on the spine History of esophagogastroduodenoscopy (EGD) 2009, repeat 12/27/2022 no abnormality, bx done History of total knee arthroplasty Left TKA x2 revision needed due to loosening of hardware, no history of infection Hx of bilateral hip replacements 3 on right hip and 0 left Hx of colonoscopy with polypectomy 2009, repeat 12/27/2022 with polyps, next in 5 years S/P cervical spinal fusion Status post surgery Family History Father Stroke Heart attack Brother Hypertension Sister Heart attack Social History Smoking and tobacco status: current every day smoker (chewing) smokeless tobacco Smokeless tobacco user: chewing tobacco Alcohol intake: former Desire information about alcohol rehabilitation?: No Substance/Drug Use: current Substance/Drug use frequency: other Other substance/drug use details: medical marijuana Desire information about substance/drug rehabilitation?: No Caregiver/support person: No Lives independently: Yes Household members: none Marital status: Single Highest education level completed: Some College, No Degree service: No Current occupational status: retired and disabled Do you think of yourself as: Straight/Heterosexual Current gender identity: Male Physical Exam Const: COMMON NORMALS: alert HENMT: COMMON NORMALS: normocephalic HEAD & SCALP: normocephalic Neck/C-Spine: COMMON NORMALS: full ROM Resp: COMMON NORMALS: normal respiratory effort and clear to auscultation bilaterally AUSCULTATION: clear to auscultation bilaterally Cardio: COMMON NORMALS: regular rate RATE: regular rate Back/Pelvis: COMMON NORMALS: thoracic and lumbar spine normal to inspection Extremity: COMMON NORMALS: full ROM Neuro: SENSORIUM/ORIENTATION: Yes alert Skin: COMMON NORMALS: turgor normal GENERAL SKIN EXAM: turgor normal Course Vital Signs: Vital signs: Vital Signs Temperature 98.3 F 03/03/23 00:13 Pulse Rate 76 03/03/23 00:33 Respiratory Rate 17 03/03/23 01:01 Blood Pressure 129/97 03/03/23 00:33 Pulse Oximetry 97 03/03/23 01:01 Oxygen Delivery Me thod Room Air 03/03/23 00:33 MDM - Fall Medical Decision Making 57-year-old male patient comes in today for complaints of evaluation of injury secondary to a fall in the shower. On exam patient appears nontoxic. Patient had put a cervical collar in place at home to protect his neck. Patient has a history of a cervical fusion and a lumbar fusion. Patient also reports a history of recurrent concussions. Patient moves all extremities well. No visible abnormalities are noted. No bruising is noted to the back of the head. Pupils are equal and reactive. Skin is warm and dry. Vital signs are normal. Differential diagnosis includes head injury, fracture, strain, contusions. CT of the head, cervical spine, and lumbar spine were negative for any acute abnormalities. Reviewed exam with patient with recommendations for further treatment and follow-up. Patient reported understanding agreed to plan. Lab Data Radiology Impressions Cervical Spine CT 03/03/23 00:20 IMPRESSION: 1. Negative for fracture or dislocation. 2. Surgical hardware seen in place throughout the spine. Head CT 03/03/23 00:20 IMPRESSION: No acute intracranial abnormality. Lumbar Spine CT 03/03/23 00:20 IMPRESSION: 1. Negative for fracture or dislocation. 2. L4-L5 intervertebral disc spacer with productive degenerative endplate changes resulting in [id number] bilateral foraminal narrowing. 3. L2-L3 degenerative changes resulting in mild spinal canal and bilateral foraminal narrowing. 4. L3-L4 broad-based disc bulge and degenerative endplate changes resulting in moderate spinal canal and moderate bilateral foraminal narrowing. All radiology interpretation(s) finalized by discharge EKG Data EKG 1: EKG interpretation date: 03/03/23 EKG interpretation time: 00:25 Prior EKG tracings: not available for review Interpretation: Patient has a sinus rhythm with a regular rate [address] elevation or ectopy is noted. No prior exam was available for comparison. Computer generated interpretation: Sinus rhythm, normal EKG, unconfirmed report. Discharge Plan Discharge Patient Disposition: Home Clinical Impression: Fall from slipping on slippery surface Qualifiers: Encounter type: initial encounter Qualified Code(s): W01.0XXA - Fall on same level from slipping, tripping and stumbling without subsequent striking against object, initial encounter Back pain Qualifiers: Back pain location: low back pain Chronicity: unspecified Back pain laterality: unspecified Sciatica presence: without sciatica Qualified Code(s): M54.50 - Low back pain, unspecified Condition: Stable Prescriptions: No Action omeprazole 40 mg capsule,delayed release(DR/EC) 40 mg PO QAM Qty: 90 1RF magnesium oxide 400 mg (241.3 mg magnesium) tablet 400 mg PO DAILY Qty: 30 0RF acetaminophen 500 mg Tablet 1,000 mg PO BID colchicine (gout) [Colcrys] 0.6 mg tablet 0.6 mg PO DAILY PRN (Reason: gout) methocarbamol 500 mg tablet 500 mg PO Q6H Qty: 40 0RF gabapentin 300 mg capsule 300 mg PO Q8H Qty: 30 0RF Aspir-81 81 mg Tablet,Delayed Release (Dr/Ec) 81 mg PO DAILY carbidopa-levodopa 25-250 mg tablet 2 - 2.5 tab PO Q6H metoprolol tartrate 50 mg tablet 50 mg PO BID Discharge Orders: Discharge ED (Routine); Ordered 03/03/23 Ordered By: Michel Holt Referrals: Wali Moon MD [Primary Care Provider] - Discharge Diet: Usual diet Discharge Activity: Increase activity as tolerated Patient Instructions: Back Pain Activity Restrictions/Additional Instructions: Activity as tolerated. Continue with routine care at home. Follow-up with primary care for further instructions. Return to ED for new concerns. Coding Level of Care Code ED Preventive Maintenance Engineer for Mu Pressley
--- NOTE | 2023-03-03 00:15 | ECG_ITS ---
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 Measurements Intervals [place] Rate: 81 P: 60 SC: 184 QRS: 7 QRSD: 100 T: 49 QT: 387 QTc: 451 Interpretive Statements SINUS RHYTHM Compared to ECG 02/09/2023 19:51:46 Sinus tachycardia no longer present T-wave abnormality no longer present Electronically Signed On 03-03-2023 5:08:07 CDT by Miguelina Gupta M.D. [id number]
--- NOTE | 2023-03-03 00:20 | CTR_ITS ---
PROCEDURE INFORMATION: Exam: CT Head Without Contrast Exam date and time: 03/03/2023 12:40 AM Age: 57 years old Clinical indication: Injury or trauma; Fall; Blunt trauma (contusions or hematomas); Patient HX: Patient slipped and fell backwards in shower landing on buttocks and striking back of head. C/O head, neck, and low back pain. C collar in place. TECHNIQUE: Imaging protocol: Computed tomography of the head without contrast. Radiation optimization: All CT scans at this facility use at least one of these dose optimization techniques: automated exposure control; mA and/or kV adjustment per patient size (includes targeted exams where dose is matched to clinical indication); or iterative reconstruction. REPORTING DATA: Count of CT and Cardiac NM exams in prior 12 months: This patient has received 12 known CTs and 0 known cardiac nuclear medicine studies in the 12 months prior to the current study. COMPARISON: CT head wo con* [id number] 01/17/2023 12:18 AM RADIATION DOSE METRICS: Total DLP (mGy-cm): 877.58 FINDINGS: Brain: Normal. No hemorrhage. Unremarkable white matter. No mass effect. Cerebral ventricles: No ventriculomegaly. Paranasal sinuses: Visualized sinuses are unremarkable. No fluid levels. Mastoid air cells: Visualized mastoid air cells are well aerated. Bones/joints: Unremarkable. No acute fracture. Soft tissues: Unremarkable. CT/CT head wo con* [id number] IMPRESSION: No acute intracranial abnormality.
--- NOTE | 2023-03-03 00:20 | CTR_ITS ---
PROCEDURE INFORMATION: Exam: CT Cervical Spine Without Contrast Exam date and time: 03/03/2023 12:43 AM Age: 57 years old Clinical indication: Injury or trauma; Fall; Blunt trauma; Prior surgery; Surgery date: 6+ months; Surgery type: Cervical fusion; Patient HX: Patient slipped and fell backwards in shower landing on buttocks and striking back of head. C/O head, neck, and low back pain. C collar in place. TECHNIQUE: Imaging protocol: Computed tomography of the cervical spine without contrast. Radiation optimization: All CT scans at this facility use at least one of these dose optimization techniques: automated exposure control; mA and/or kV adjustment per patient size (includes targeted exams where dose is matched to clinical indication); or iterative reconstruction. REPORTING DATA: Count of CT and Cardiac NM exams in prior 12 months: This patient has received 12 known CTs and 0 known cardiac nuclear medicine studies in the 12 months prior to the current study. COMPARISON: CT cervical spin wo con* [id number] 02/03/2023 10:39 AM RADIATION DOSE METRICS: Total DLP (mGy-cm): 639.87 FINDINGS: Bones/joints: Surgical hardware seen in place throughout the spine. C2-C3: No significant disc bulge or herniation. No severe spinal canal stenosis. No significant neural foraminal narrowing. C3-C4: No significant disc bulge or herniation. No severe spinal canal stenosis. No significant neural foraminal narrowing. C4-C5: No significant disc bulge or herniation. No severe spinal canal stenosis. No significant neural foraminal narrowing. C5-C6: No significant disc bulge or herniation. No severe spinal canal stenosis. No significant neural foraminal narrowing. C6-C7: No significant disc bulge or herniation. No severe spinal canal stenosis. No significant neural foraminal narrowing. C7-T1: No significant disc bulge or herniation. No severe spinal canal stenosis. No significant neural foraminal narrowing. Lungs: Lung apices are normal. Soft tissues: Unremarkable. CT/CT cervical spin wo con* [id number] IMPRESSION: 1. Negative for fracture or dislocation. 2. Surgical hardware seen in place throughout the spine.
--- NOTE | 2023-03-03 00:20 | CTR_ITS ---
PROCEDURE INFORMATION: Exam: CT Lumbar Spine Without Contrast Exam date and time: 03/03/2023 12:47 AM Age: 57 years old Clinical indication: Injury or trauma; Fall; Blunt trauma (contusions or hematomas); Prior surgery; Surgery date: 6+ months; Surgery type: Lumbar fusion; Patient HX: Patient slipped and fell backwards in shower landing on buttocks and striking back of head. C/O head, neck, and low back pain. C collar in place. TECHNIQUE: Imaging protocol: Computed tomography of the lumbar spine without contrast. Radiation optimization: All CT scans at this facility use at least one of these dose optimization techniques: automated exposure control; mA and/or kV adjustment per patient size (includes targeted exams where dose is matched to clinical indication); or iterative reconstruction. REPORTING DATA: Count of CT and Cardiac NM exams in prior 12 months: This patient has received 12 known CTs and 0 known cardiac nuclear medicine studies in the 12 months prior to the current study. COMPARISON: CT lumbar spine wo con* [id number] 02/03/2023 10:46 AM RADIATION DOSE METRICS: Total DLP (mGy-cm): 1101.03 FINDINGS: Bones/joints: L1-L2: No significant disc bulge or herniation. No severe spinal canal stenosis. No significant neural foraminal narrowing. L2-L3: L2-L3 degenerative changes resulting in mild spinal canal and bilateral foraminal narrowing. L3-L4: L3-L4 broad-based disc bulge and degenerative endplate changes resulting in moderate spinal canal and moderate bilateral foraminal narrowing. L4-L5: L4-L5 intervertebral disc spacer with productive degenerative endplate changes resulting in [id number]-[id number] bilateral foraminal narrowing. L5-S1: No significant disc bulge or herniation. No severe spinal canal stenosis. No significant neural foraminal narrowing. Soft tissues: Unremarkable. CT/CT lumbar spine wo con* [id number] IMPRESSION: 1. Negative for fracture or dislocation. 2. L4-L5 intervertebral disc spacer with productive degenerative endplate changes resulting in [id number] bilateral foraminal narrowing. 3. L2-L3 degenerative changes resulting in mild spinal canal and bilateral foraminal narrowing. 4. L3-L4 broad-based disc bulge and degenerative endplate changes resulting in moderate spinal canal and moderate bilateral foraminal narrowing.
[2023-03-03 00:33] VITALS: BP 129/97; PULSE 76; RESP 16; O2SAT 97
[2023-03-03 01:01] VITALS: RESP 17; O2SAT 97
[2023-03-03] MEDS: morphine 4 mg/mL SDV 1 mL IM (01:01)
[2023-03-03 01:54] VITALS: BP 141/89; PULSE 77; RESP 17; O2SAT 98
[2023-03-03] MEDS: acetaminophen 500 mg Tablet 1000 MG PO (01:58)
== END 2023-03-03 02:00 | disposition home or self-care (01) ==
PROVIDERS: Emergency Provider Nurse Practitioner Family; PCP Family Medicine Adult Medicine
DX: M54.50 Low back pain, unspecified (principal); Z79.82 Long term (current) use of aspirin; F17.220 Nicotine dependence, chewing tobacco, uncomplicated; Z96.643 Presence of artificial hip joint, bilateral; I25.10 Atherosclerotic heart disease of native coronary artery without angina pectoris; I10 Essential (primary) hypertension; G20 Parkinson's disease; Z86.73 Personal history of transient ischemic attack (TIA), and cerebral infarction without residual deficits; W18.2XXA Fall in (into) shower or empty bathtub, initial encounter
CPT/HCPCS: 70450; 72125; 72131; 93005; 96372; 99284; J2270

== ENCOUNTER 2023-03-14 13:43 | Emergency (ER) | payer MEDICARE, MEDICAID, SELFPAY ==
[2023-03-14 13:46] VITALS: BP 151/100; PULSE 100; RESP 16; TEMP 36.4; O2SAT 100; BMI 28.3
--- NOTE | 2023-03-14 14:09 | XR_ITS ---
WS: [id number] Portable AP upright chest, 03/14/2023 Clinical Data: chest pain Comparison: Portable chest, 02/09/2023 Findings: No nodules, masses or effusions are seen. The heart is normal. The pulmonary vascularity is not increased. No pneumonia or pneumothorax is seen. There is an anterior and posterior cervical dis c fusion. Impression: Negative chest.
--- NOTE | 2023-03-14 14:13 | ECG_ITS ---
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 Measurements Intervals [place] Rate: 99 P: 54 [place]: 139 QRS: 3 QRSD: 85 T: 12 QT: 373 QTc: 480 Interpretive Statements SINUS RHYTHM NONSPECIFIC T-WAVE ABNORMALITY Compared to ECG 03/03/2023 00:15:03 T-wave abnormality now present Electronically Signed On 03-15-2023 11:00:55 CDT by Miguelina Gupta M.D. [email or web address] [email or web address] Domain [email or web address]/[id number]
[2023-03-14 14:35] LABS: Basophils % 0.3 %; Eosinophils # 0.1 10^3/uL (0.0-0.8); Hematocrit 47.9 % (37-53); Lymphocytes # 1.9 10^3/uL (0.8-4.8); Lymphocytes % 18.2 %; Mean Corpuscular HGB Conc 33.2 g/dL (30-55); Mean Corpuscular Hemoglobin 28.5 pg (27-33); Mean Platelet Volume 9.4 fL (7.4-10.4); Monocytes # 0.6 10^3/uL (0.2-0.9); Monocytes % 6.1 %; Neutrophils # 7.69 10^3/uL (1.8-7.7); Nucleated Red Blood Cells % 0 %; Platelet Count 273 10^3/cmm (157-399); Red Blood Count 5.57 10^6/uL (3.85-5.65); Red Cell Distribution Width 13.8 % (12.1-15.1); White Blood Count 10.38 10^3/uL (3.29-11.43)
[2023-03-14] MEDS: sodium chloride 0.9% 1,000 ML 999 ML IV (14:45)
[2023-03-14] MEDS: ondansetron 2 mg/ML SDV 2 mL 4 MG IVP (14:47)
[2023-03-14 14:51] VITALS: BP 168/104; PULSE 100; O2SAT 98
[2023-03-14 14:52] LABS: Troponin(5th) Baseline 8 ng/L (0-15)
--- NOTE | 2023-03-14 14:57 | USCV_ITS ---
Jude Burden Age: 57 Gender: M : 1965 Exam Date: 03/14/2023 15:29 Ordering Phys: Ugo Estrada MD Technologist: Yovany Clark [place] [facility] [place]: lt leg pain and swelling PROCEDURES: Venous duplex imaging was performed in only the left lower extremity. The following venous structures were evaluated: common femoral vein, profunda vein, proximal portion of the greater saphenous vein, superficial femoral vein, and the popliteal vein. FINDINGS: Normal 2-D Doppler and augmentation and compressibility throughout the lower extremity venous structures. Additional imaging through the proximal calf veins also reveals no thrombus. Limited evaluation of the greater saphenous vein is patent with no thrombus. CONCLUSIONS No DVT left lower extremity. Dr. Haily Blakely DO (Electronically Signed) Final Date: 15 March 2023 07:44 S
[2023-03-14 15:10] VITALS: RESP 16; O2SAT 100
[2023-03-14] MEDS: morphine 4 mg/mL SDV 1 mL 2 MG IVP (15:10)
[2023-03-14 15:13] LABS: Alanine Aminotransferase < 5 U/L (0-41); Albumin Level 4.4 g/dL (3.5-5.2); Alkaline Phosphatase 88 U/L (40-130); Anion Gap 22.4 (5-19); Aspartate Amino Transferase 10 U/L (0-40); Blood Urea Nitrogen 17 mg/dL (6-20); Calcium 9.7 mg/dL (8.5-10.5); Carbon Dioxide 20 mmol/L (22-29); Chloride 100 mmol/L (98-107); Globulin 2.6 g/dL (1.3-4.6); Glomerular Filtration Rate 76.7 mL/min (90-130); Glucose 145 mg/dL (65-115); Lipase 43 U/L (13-60); NT Pro B Type Natriuretic Pept 46 pg/mL (0-125); Osmolality Calculated 292 mOsm/kg (285-295); Potassium 3.4 mmol/L (3.5-5.1); Sodium 139 mmol/L (136-145); Total Bilirubin 0.5 mg/dL (0.15-1.2)
[2023-03-14 15:30] VITALS: BP 146/92; PULSE 96; O2SAT 100
--- NOTE | 2023-03-14 16:23 | ECG_ITS ---
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 Measurements Intervals [place] Rate: 97 P: 55 [place]: 156 QRS: 4 QRSD: 94 T: 23 QT: 310 QTc: 394 Interpretive Statements SINUS RHYTHM MODERATE VOLTAGE CRITERIA FOR LVH, CONSIDER NORMAL VARIANT [MEETS CRITERIA IN ONE OF: R(aVL), S(V1), R(V5), R(V5/V6)+S(V1)] NONSPECIFIC T-WAVE ABNORMALITY Compared to ECG 03/14/2023 14:28:52 No significant changes Electronically Signed On 03-15-2023 11:01:53 CDT by Miguelina Gupta M.D. [id number]
[2023-03-14 16:30] VITALS: BP 173/99; PULSE 95; O2SAT 94
[2023-03-14 17:15] LABS: Troponin 5 2HR 7.81 ng/L (0-15); Troponin 5 2HR Delta -0.19 ABS# (0-10)
[2023-03-14 17:51] VITALS: BP 170/99; PULSE 99; O2SAT 100
--- NOTE | 2023-03-14 19:41 | ED_ITS ---
HPI - Syncope General: Chief Complaint: Syncope Stated Complaint: seizure Time Seen by Provider: 03/14/23 13:45 History of Present Illness: This patient is a 57-year-old white male who presents to the emergency department with multiple medical issues. Patient states he has felt nauseous and has been vomiting somewhat over the past couple of days. Thinks he may have had a seizure. He has been having chest pain. He passed out this morning. He has had some pain in the left calf and is concerned he may have a blood clot. Has been feeling somewhat dizzy. Complains of a headache. Chest pain is currently a 2 out of 10. Patient states he called his primary care doctor Dr. Moon. He states he has to go outside to make phone calls and right after placing a call he had passed out. Evidently neighbors called EMS and was brought in by EMS. He does have a history of Parkinson's disease. Review of Systems General: Reports: 10 or more systems reviewed and unremarkable except in HPI and below [facility] ED PFSH: Medical History (Updated 03/14/23 @ 18:33 by Ugo Estrada MD) Anxiety and depression CAD (coronary artery disease) Chewing tobacco nicotine dependence Age [age] (currently) Chronic right shoulder pain DDD (degenerative disc disease) Decreased glomerular filtration rate (GFR) Fusion of lumbar spine Gout Hearing loss Hypertension Metatarsus adductus of both feet Migraines Osteoarthritis Parkinsons disease Pes planus of both feet Polyp of tongue TIA (transient ischemic attack) Surgical History History of back surgery x6 different surgeries on the spine History of esophagogastroduodenoscopy (EGD) 2009, repeat 12/27/2022 no abnormality, bx done History of total knee arthroplasty Left TKA x2 revision needed due to loosening of hardware, no history of infection Hx of bilateral hip replacements 3 on right hip and 0 left Hx of colonoscopy with polypectomy 2009, repeat 12/27/2022 with polyps, next in 5 years S/P cervical spinal fusion Status post surgery Family History Father Stroke Heart attack Brother Hypertension Sister Heart attack Social History Smoking and tobacco status: current every day smoker (chewing) smokeless tobacco Smokeless tobacco user: chewing tobacco Alcohol intake: former Desire information about alcohol rehabilitation?: No Substance/Drug Use: current Substance/Drug use frequency: other Other substance/drug use details: medical marijuana Desire information about substance/drug rehabilitation?: No Caregiver/support person: No Lives independently: Yes Household members: none Marital status: Single Highest education level completed: Some College, No Degree service: No Current occupational status: retired and disabled Do you think of yourself as: Straight/Heterosexual Current gender identity: Male Physical Exam Const: COMMON NORMALS: no acute distress, patient oriented x3 and no limitations GENERAL APPEARANCE: cooperative and comfortable HENMT: COMMON NORMALS: normocephalic, atraumatic, Normal nasal mucous membranes and turbinates present, moist oral mucous membranes and oropharynx normal HEAD & SCALP: normal to inspection, normocephalic and atraumatic FACE & SINUS: normal facial exam NOSE: Normal nasal mucous membranes and turbinates present Eye: COMMON NORMALS: Equal, round and reactive pupils present, EOMs intact bilaterally and conjunctivae normal GENERAL EYE: appearance normal, both eyes and all related structures CONJUNCTIVA: Yes conjunctivae normal PUPIL: Yes Equal, round and reactive pupils present Neck/C-Spine: COMMON NORMALS: supple and no JVD Chest: COMMONS NORMALS: normal inspection of the chest Resp: COMMON NORMALS: normal respiratory effort and clear to auscultation bilaterally AUSCULTATION: clear to auscultation bilaterally Cardio: COMMON NORMALS: no JVD, regular rate, regular rhythm, No gallops present (Cardio), No murmurs present (Cardio) and No rub (Cardio) RATE: regular rate RHYTHM: regular rhythm GI: COMMON NORMALS: Normal to inspection, nondistended, normoactive bowel sounds present, Soft to palpation and non-tender AUSCULTATION: Yes normoactive bowel sounds PALPATION: Yes Soft to palpation : COMMON NORMALS: Yes no CVA tenderness BLADDER/KIDNEY EXAM: Yes no CVA tenderness Back/Pelvis: COMMON NORMALS: no CVA tenderness and thoracic and lumbar spine normal to inspection Extremity: COMMON NORMALS: normal to inspection Neuro: COMMON NORMALS: patient oriented x3 and CN's II-XII intact bilaterally Psych: COMMON NORMALS: mental status grossly normal, Normal thought process present and cooperative THOUGHT PROCESS: Normal thought process present Skin: COMMON NORMALS: no rashes or lesions noted, turgor normal and no jaundice GENERAL SKIN EXAM: no rashes or lesions noted and turgor normal Course Vital Signs: Vital signs: Vital Signs Temperature 97.5 F L 03/14/23 13:46 Pulse Rate 99 03/14/23 17:51 Respiratory Rate 16 03/14/23 15:10 Blood Pressure 170/99 03/14/23 17:51 Pulse Oximetry 100 03/14/23 17:51 Oxygen Delivery Me thod Room Air 03/14/23 16:30 MDM - Syncope Medical Decision Making CBC was normal. CMP normal. Lipase normal at 43. D-dimer slightly elevated 0.60. The baseline troponin was 8 with a 2-hour level of 7.8. BNP was 46. EKG revealed sinus rhythm with no significant ST segment abnormalities. Chest x-ray was normal. Venous duplex of the left lower extremity was read by the radiologist as normal. Patient was given morphine for his headache. He was discharged in stable condition instructed to follow-up with his primary care provider within the next several days for recheck. Lab Data 03/14/23 14:30 03/14/23 14:30 Laboratory Results WBC 10.38 10^3/uL (3.29-11.43) 03/14/23 14:30 RBC 5.57 10^6/uL (3.85-5.65) 03/14/23 14:30 Hgb 15.90 g/dL (11.27-16.99) 03/14/23 14:30 Hct 47.9 % (37-53) 03/14/23 14:30 MCV 86.0 fl (82-101) 03/14/23 14:30 MCH 28.5 pg (27-33) 03/14/23 14:30 MCHC 33.2 g/dL (30-55) 03/14/23 14:30 RDW 13.8 % (12.1-15.1) 03/14/23 14:30 Plt Count 273 10^3/cmm (157-399) 03/14/23 14:30 MPV 9.4 fL (7.4-10.4) 03/14/23 14:30 Neut % (Auto) 74.0 % 03/14/23 14:30 Lymph % (Auto) 18.2 % 03/14/23 14:30 [place] % (Auto) 6.1 % 03/14/23 14:30 Eos % (Auto) 1.0 % 03/14/23 14:30 Baso % (Auto) 0.3 % 03/14/23 14:30 Neut # (Auto) 7.69 10^3/uL (1.8-7.7) 03/14/23 14:30 Lymph # (Auto) 1.9 10^3/uL (0.8-4.8) 03/14/23 14:30 [place] # (Auto) 0.6 10^3/uL (0.2-0.9) 03/14/23 14:30 Eos # (Auto) 0.1 10^3/uL (0.0-0.8) 03/14/23 14:30 Baso # (Auto) 0.0 10^3/uL (0.0-0.1) 03/14/23 14:30 Nucleated RBC % (auto) 0 % 03/14/23 14:30 Nucleated RBCs # 0.0 /100WBC 03/14/23 14:30 D-Dimer 0.60 ug/mLFEU (0-0.59) H 03/14/23 14:30 Sodium 139 mmol/L (136-145) 03/14/23 14:30 Potassium 3.4 mmol/L (3.5-5.1) L 03/14/23 14:30 Chloride 100 mmol/L (98-107) 03/14/23 14:30 Carbon Dioxide 20 mmol/L (22-29) L 03/14/23 14:30 Anion Gap 22.4 (5-19) H 03/14/23 14:30 BUN 17 mg/dL (6-20) 03/14/23 14:30 Creatinine 1.0 mg/dL (0.7-1.2) 03/14/23 14:30 GFR Calculation 76.7 mL/min (90-130) L 03/14/23 14:30 Glucose 145 mg/dL (65-115) H 03/14/23 14:30 Calculated Osmolality 292 mOsm/kg (285-295) 03/14/23 14:30 Calcium 9.7 mg/dL (8.5-10.5) 03/14/23 14:30 Total Bilirubin 0.5 mg/dL (0.15-1.2) 03/14/23 14:30 AST 10 U/L (0-40) 03/14/23 14:30 ALT < 5 U/L (0-41) 03/14/23 14:30 Alkaline Phosphatase 88 U/L (40-130) 03/14/23 14:30 Troponin T Baseline 8 ng/L (0-15) 03/14/23 14:30 Troponin T 120 Minute 7.81 ng/L (0-15) 03/14/23 16:35 Delta Troponin T -0.19 ABS# (0-10) L 03/14/23 16:35 NT-Pro-B Natriuret Pep 46 pg/mL (0-125) 03/14/23 14:30 Total Protein 7.0 g/dL (6.6-8.7) 03/14/23 14:30 Albumin 4.4 g/dL (3.5-5.2) 03/14/23 14:30 Globulin 2.6 g/dL (1.3-4.6) 03/14/23 14:30 Lipase 43 U/L (13-60) 03/14/23 14:30 All radiology interpretation(s) finalized by discharge Discharge Plan Discharge Patient Disposition: Home Clinical Impression: Syncope Condition: Stable Prescriptions: No Action omeprazole 40 mg capsule,delayed release(DR/EC) 40 mg PO QAM Qty: 90 1RF acetaminophen 500 mg Tablet 1,000 mg PO BID aspirin [Aspir-81] 81 mg Tablet,Delayed Release (Dr/Ec) 81 mg PO DAILY carbidopa-levodopa 25-250 mg tablet 2 - 2.5 tab PO Q6H metoprolol tartrate 50 mg tablet 50 mg PO BID Discharge Orders: Discharge ED (Routine); Ordered 03/14/23 Ordered By: Ugo Estrada Referrals: Wali Moon MD [Primary Care Provider] - Patient Instructions: Opioid Safety, Pain Management Coding Level of Care Code ED 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
== END 2023-03-14 18:45 | disposition home or self-care (01) ==
PROVIDERS: Emergency Provider Emergency Medicine; PCP Family Medicine Adult Medicine
DX: R55 Syncope and collapse (principal); Z79.82 Long term (current) use of aspirin; F17.220 Nicotine dependence, chewing tobacco, uncomplicated; I25.10 Atherosclerotic heart disease of native coronary artery without angina pectoris; I10 Essential (primary) hypertension; G20 Parkinson's disease; Z86.73 Personal history of transient ischemic attack (TIA), and cerebral infarction without residual deficits; M79.605 Pain in left leg
CPT/HCPCS: 36415; 71045; 80053; 83690; 83880; 84484; 85025; 85378; 93005; 93971; 96374; 96375; 99285; J2270; J2405; J7030

== ENCOUNTER 2023-03-15 02:11 | Emergency (ER) | payer MEDICARE, MEDICAID, SELFPAY ==
[2023-03-15 02:12] VITALS: BP 129/91; PULSE 96; RESP 18; TEMP 36.6; O2SAT 100; BMI 38.2
--- NOTE | 2023-03-15 02:12 | XRR_ITS ---
PROCEDURE INFORMATION: Exam: XR Chest Exam date and time: 03/15/2023 2:36 AM Age: 57 years old Clinical indication: Angina and shortness of breath; Chest wall pain; Additional info: Cp TECHNIQUE: Imaging protocol: Radiologic exam of the chest. Views: 1 view. COMPARISON: CR XR chest 1V portable [id number] 03/14/2023 2:23 PM FINDINGS: Lungs: No consolidation. Pleural spaces: Unremarkable. No pleural effusion. No pneumothorax. Heart/Mediastinum: No cardiomegaly. Bones/joints: Prior postsurgical changes noted in the lower cervical spine. XR/XR chest 1V portable [id number] IMPRESSION: No acute findings.
--- NOTE | 2023-03-15 02:14 | ECG_ITS ---
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 Measurements Intervals [place] Rate: 95 P: 63 [place]: 145 QRS: 14 QRSD: 83 T: 44 QT: 361 QTc: 455 Interpretive Statements SINUS RHYTHM Compared to ECG 03/14/2023 16:23:14 T-wave abnormality no longer present Electronically Signed On 03-15-2023 10:59:06 CDT by Miguelina Gupta M.D. [id number] f
--- NOTE | 2023-03-15 02:15 | W.ED.CHESTPA ---
HPI - Chest Pain General: Chief Complaint: Chest Pain Stated Complaint: CP Time Seen by Provider: 03/15/23 02:11 Source: patient and EMS Mode of arrival: EMS Limitations: no limitations History of Present Illness: 57-year-old male very well-known to ER states that he has been having chest pain all day he was seen here earlier today for chest pain syncopal episode was discharged after normal work-up he states that tonight he has been having chest pain he states he is also having abdominal pain he states he is having numbness to his nose. He denies any worsening proving factors denies any shortness of breath. Associated symptoms: Reports abdominal pain; Deny dyspnea, fever(s), nausea or vomiting Review of Systems Const: Denies: fever(s) or chills Eyes: Denies: blurry vision or eye discomfort ENMT: Denies: throat pain or dental pain Card: Reports: chest pain Resp: Denies: dyspnea GI: Reports: abdominal pain; Denies: nausea, vomiting or diarrhea : Denies: dysuria Musc: Denies: neck pain or back pain Skin/Breast: Denies: rash Neuro: Reports: numbness in extremities; Denies: headache(s) PFSH ED PFSH: Medical History Anxiety and depression CAD (coronary artery disease) Chewing tobacco nicotine dependence Age [age] (currently) Chronic right shoulder pain DDD (degenerative disc disease) Decreased glomerular filtration rate (GFR) Fusion of lumbar spine Gout Hearing loss Hypertension Metatarsus adductus of both feet Migraines Osteoarthritis Parkinsons disease Pes planus of both feet Polyp of tongue TIA (transient ischemic attack) Surgical History History of back surgery x6 different surgeries on the spine History of esophagogastroduodenoscopy (EGD) 2009, repeat 12/27/2022 no abnormality, bx done History of total knee arthroplasty Left TKA x2 revision needed due to loosening of hardware, no history of infection Hx of bilateral hip replacements 3 on right hip and 0 left Hx of colonoscopy with polypectomy 2009, repeat 12/27/2022 with polyps, next in 5 years S/P cervical spinal fusion Status post surgery Family History Father Stroke Heart attack Brother Hypertension Sister Heart attack Social History Smoking and tobacco status: current every day smoker (chewing) smokeless tobacco Smokeless tobacco user: chewing tobacco Alcohol intake: former Desire information about alcohol rehabilitation?: No Substance/Drug Use: current Substance/Drug use frequency: other Other substance/drug use details: medical marijuana Desire information about substance/drug rehabilitation?: No Caregiver/support person: No Lives independently: Yes Household members: none Marital status: Single Highest education level completed: Some College, No Degree service: No Current occupational status: retired and disabled Do you think of yourself as: Straight/Heterosexual Current gender identity: Male Physical Exam Const: COMMON NORMALS: no acute distress, patient oriented x3 and healthy appearing HENMT: COMMON NORMALS: normocephalic and atraumatic HEAD & SCALP: normocephalic and atraumatic Eye: COMMON NORMALS: Equal, round and reactive pupils present and EOMs intact bilaterally PUPIL: Yes Equal, round and reactive pupils present Neck/C-Spine: COMMON NORMALS: full ROM and supple Chest: COMMONS NORMALS: normal inspection of the chest and normal palpation of entire chest wall Resp: COMMON NORMALS: normal respiratory effort, No retractions, No use of accessory muscles and clear to auscultation bilaterally AUSCULTATION: clear to auscultation bilaterally Cardio: COMMON NORMALS: regular rate, regular rhythm and No murmurs present (Cardio) RATE: regular rate RHYTHM: regular rhythm GI: COMMON NORMALS: Normal to inspection, nondistended, normoactive bowel sounds present, Soft to palpation, non-tender and no masses PALPATION: Yes Soft to palpation Extremity: COMMON NORMALS: normal to inspection and full ROM Neuro: COMMON NORMALS: patient oriented x3, moves all extremities and no focal motor deficits Psych: COMMON NORMALS: mental status grossly normal, Normal thought process present and cooperative THOUGHT PROCESS: Normal thought process present Skin: COMMON NORMALS: no rashes or lesions noted and no wounds GENERAL SKIN EXAM: no rashes or lesions noted Course Vital Signs: Vital signs: Vital Signs Temperature 98 F 03/15/23 02:12 Pulse Rate 93 03/15/23 02:58 Respiratory Rate 17 03/15/23 03:01 Blood Pressure 151/94 03/15/23 02:58 Pulse Oximetry 98 03/15/23 02:58 MDM - Chest Pain Medical Decision Making Patient presents for chest pain is atypical in nature troponin here is normal he had had normal troponins earlier today as well he is stable for discharge she is to follow-up with PCP and return if worsening he understands agrees to plan. Medical Records I reviewed the patient's medical records. Lab Data I reviewed the patient's lab results. 03/15/23 02:25 03/15/23 02:25 Laboratory Results WBC 11.26 10^3/uL (3.29-11.43) 03/15/23 02:25 RBC 5.65 10^6/uL (3.85-5.65) 03/15/23 02:25 Hgb 16.00 g/dL (11.27-16.99) 03/15/23 02:25 Hct 49.0 % (37-53) 03/15/23 02:25 MCV 86.7 fl (82-101) 03/15/23 02:25 MCH 28.3 pg (27-33) 03/15/23 02:25 MCHC 32.7 g/dL (30-55) 03/15/23 02:25 RDW 14.0 % (12.1-15.1) 03/15/23 02:25 Plt Count 285 10^3/cmm (157-399) 03/15/23 02:25 MPV 9.3 fL (7.4-10.4) 03/15/23 02:25 Neut % (Auto) 70.1 % 03/15/23 02:25 Lymph % (Auto) 20.2 % 03/15/23 02:25 [place] % (Auto) 7.9 % 03/15/23 02:25 Eos % (Auto) 0.9 % 03/15/23 02:25 Baso % (Auto) 0.4 % 03/15/23 02:25 Neut # (Auto) 7.89 10^3/uL (1.8-7.7) H 03/15/23 02:25 Lymph # (Auto) 2.3 10^3/uL (0.8-4.8) 03/15/23 02:25 [place] # (Auto) 0.9 10^3/uL (0.2-0.9) 03/15/23 02:25 Eos # (Auto) 0.1 10^3/uL (0.0-0.8) 03/15/23 02:25 Baso # (Auto) 0.0 10^3/uL (0.0-0.1) 03/15/23 02:25 Nucleated RBC % (auto) 0 % 03/15/23 02:25 Nucleated RBCs # 0.0 /100WBC 03/15/23 02:25 Sodium 139 mmol/L (136-145) 03/15/23 02:25 Potassium 3.7 mmol/L (3.5-5.1) 03/15/23 02:25 Chloride 100 mmol/L (98-107) 03/15/23 02:25 Carbon Dioxide 23 mmol/L (22-29) 03/15/23 02:25 Anion Gap 19.7 (5-19) H 03/15/23 02:25 BUN 13 mg/dL (6-20) 03/15/23 02:25 Creatinine 0.9 mg/dL (0.7-1.2) 03/15/23 02:25 GFR Calculation 86.7 mL/min (90-130) L 03/15/23 02:25 Glucose 124 mg/dL (65-115) H 03/15/23 02:25 Calculated Osmolality 290 mOsm/kg (285-295) 03/15/23 02:25 Calcium 9.4 mg/dL (8.5-10.5) 03/15/23 02:25 Total Bilirubin 0.9 mg/dL (0.15-1.2) 03/15/23 02:25 AST 11 U/L (0-40) 03/15/23 02:25 ALT < 5 U/L (0-41) 03/15/23 02:25 Alkaline Phosphatase 89 U/L (40-130) 03/15/23 02:25 Troponin T Baseline 10 ng/L (0-15) 03/15/23 02:25 Total Protein 7.3 g/dL (6.6-8.7) 03/15/23 02:25 Albumin 4.6 g/dL (3.5-5.2) 03/15/23 02:25 Globulin 2.7 g/dL (1.3-4.6) 09/29/23 02:25 Lipase 88 U/L (13-60) H 03/15/23 02:25 XR interpretation done by ED provider, pending radiology final review EKG Data EKG 1: I personally reviewed and interpreted this EKG as follows: EKG interpretation date: 03/15/23 EKG interpretation time: 02:14 Interpretation: nsr hr [address] or t wave abnormalities qrs 83 qtc 414 Discharge Plan Discharge Patient Disposition: Home Clinical Impression: Chest pain Condition: Stable Prescriptions: No Action omeprazole 40 mg capsule,delayed release(DR/EC) 40 mg PO QAM Qty: 90 1RF acetaminophen 500 mg Tablet 1,000 mg PO BID aspirin [Aspir-81] 81 mg Tablet,Delayed Release (Dr/Ec) 81 mg PO DAILY carbidopa-levodopa 25-250 mg tablet 2 - 2.5 tab PO Q6H metoprolol tartrate 50 mg tablet 50 mg PO BID Discharge Orders: Discharge ED (Routine); Ordered 03/15/23 Ordered By: Heidi Abreu Referrals: Wali Moon MD [Primary Care Provider] - 1-3 days Discharge Diet: Advance as tolerated Discharge Activity: Resume usual activity Patient Instructions: Chest Pain (ED) Coding Level of Care Code ED Lift Driver for Chg Wendie
[2023-03-15 02:30] LABS: Basophils % 0.4 %; Eosinophils # 0.1 10^3/uL (0.0-0.8); Eosinophils % 0.9 %; Lymphocytes # 2.3 10^3/uL (0.8-4.8); Lymphocytes % 20.2 %; Mean Corpuscular HGB Conc 32.7 g/dL (30-55); Mean Corpuscular Hemoglobin 28.3 pg (27-33); Mean Corpuscular Volume 86.7 fl (82-101); Mean Platelet Volume 9.3 fL (7.4-10.4); Monocytes # 0.9 10^3/uL (0.2-0.9); Monocytes % 7.9 %; Neutrophils # 7.89 10^3/uL (1.8-7.7); Neutrophils % 70.1 %; Nucleated Red Blood Cells % 0 %; Platelet Count 285 10^3/cmm (157-399); Red Blood Count 5.65 10^6/uL (3.85-5.65); White Blood Count 11.26 10^3/uL (3.29-11.43)
[2023-03-15 02:58] VITALS: BP 151/94; PULSE 93; RESP 16; O2SAT 98
[2023-03-15 03:01] VITALS: RESP 17
[2023-03-15] MEDS: morphine 4 mg/mL SDV 1 mL IVP (03:01)
[2023-03-15 03:06] LABS: Troponin(5th) Baseline 10 ng/L (0-15)
[2023-03-15 03:08] LABS: Alanine Aminotransferase < 5 U/L (0-41); Albumin Level 4.6 g/dL (3.5-5.2); Alkaline Phosphatase 89 U/L (40-130); Aspartate Amino Transferase 11 U/L (0-40); Blood Urea Nitrogen 13 mg/dL (6-20); Calcium 9.4 mg/dL (8.5-10.5); Carbon Dioxide 23 mmol/L (22-29); Chloride 100 mmol/L (98-107); Globulin 2.7 g/dL (1.3-4.6); Glomerular Filtration Rate 86.7 mL/min (90-130); Glucose 124 mg/dL (65-115); Lipase 88 U/L (13-60); Osmolality Calculated 290 mOsm/kg (285-295); Sodium 139 mmol/L (136-145); Total Bilirubin 0.9 mg/dL (0.15-1.2); Total Protein 7.3 g/dL (6.6-8.7)
[2023-03-15 03:09] LABS: Anion Gap 19.7 (5-19); Potassium 3.7 mmol/L (3.5-5.1)
== END 2023-03-15 03:32 | disposition home or self-care (01) ==
PROVIDERS: Emergency Provider Emergency Medicine; PCP Family Medicine Adult Medicine
DX: R07.9 Chest pain, unspecified (principal); Z79.82 Long term (current) use of aspirin; F17.220 Nicotine dependence, chewing tobacco, uncomplicated
CPT/HCPCS: 71045; 80053; 83690; 84484; 85025; 93005; 96374; 99285; J2270

== ENCOUNTER 2023-04-13 05:09 | Emergency (ER) | payer MEDICARE, MEDICAID, SELFPAY ==
[2023-04-13 05:10] VITALS: BP 122/74; PULSE 91; RESP 20; TEMP 36.9; O2SAT 96; BMI 28.3
--- NOTE | 2023-04-13 05:36 | ECG_ITS ---
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 Measurements Intervals [place] Rate: 89 P: 42 [place]: 135 QRS: 3 QRSD: 86 T: 3 QT: 391 QTc: 477 Interpretive Statements SINUS RHYTHM MINIMAL VOLTAGE CRITERIA FOR LVH, CONSIDER NORMAL VARIANT [MEETS CRITERIA IN ONE OF: R(aVL), S(V1), R(V5), R(V5/V6)+S(V1)] NONSPECIFIC T-WAVE ABNORMALITY Compared to ECG 03/15/2023 02:14:03 T-wave abnormality now present Electronically Signed On 04-13-2023 11:14:48 CDT by Rashad El M.D. [id number]
--- NOTE | 2023-04-13 05:36 | XRR_ITS ---
PROCEDURE INFORMATION: Exam: XR Chest Exam date and time: 04/13/2023 6:15 AM Age: 57 years old Clinical indication: Pain; Chest pressure; Additional info: Cp TECHNIQUE: Imaging protocol: Radiologic exam of the chest. Views: 1 view. COMPARISON: CR (CHEST, ) 03/15/2023 2:36 AM FINDINGS: Lungs: Low lung volumes. No focal consolidation. Pleural spaces: No large pleural effusion. No significant pneumothorax. Heart/Mediastinum: Cardiomediastinal silhouette is midline and normal in size. Bones/joints: Osseous structures are unchanged. Partially imaged cervical/cervicothoracic fusion. XR/XR chest 1V portable [id number] IMPRESSION: No acute findings.
[2023-04-13 06:08] LABS: Basophils % 0.3 %; Eosinophils # 0.1 10^3/uL (0.0-0.8); Eosinophils % 1.3 %; Hematocrit 42.3 % (37-53); Lymphocytes # 1.5 10^3/uL (0.8-4.8); Lymphocytes % 15.4 %; Mean Corpuscular HGB Conc 32.6 g/dL (30-55); Monocytes # 0.6 10^3/uL (0.2-0.9); Monocytes % 6.7 %; Neutrophils # 7.17 10^3/uL (1.8-7.7); Neutrophils % 75.9 %; Nucleated Red Blood Cells % 0 %; Platelet Count 324 10^3/cmm (157-399); Red Blood Count 4.92 10^6/uL (3.85-5.65); Red Cell Distribution Width 13.7 % (12.1-15.1); White Blood Count 9.45 10^3/uL (3.29-11.43)
--- NOTE | 2023-04-13 06:26 | W.ED.CHESTPA ---
HPI - Chest Pain General: Chief Complaint: Chest Pain Stated Complaint: CP Time Seen by Provider: 04/13/23 06:22 History of Present Illness: 57-year-old male presents emergency department with complaints of chest pain. He states that approximately 3 AM this morning he was awakened with this chest pressure across the anterior aspect of his chest. He states he has recently been seen at [facility] and had his left knee drained as he thought it was infected. He states that did not provide him antibiotics after draining his knee. He states he has also had a cardiac catheterization that did not find any occluded vessels. He denies nausea or vomiting fevers chills or night sweats. He states his pressure is a 5 out of 10 and he states he also feels like he is having difficulty catching his breath. He is on room air at present with a 99% room air oxygen saturation. Associated symptoms: Reports dyspnea Review of Systems General: Reports: 10 or more systems reviewed and unremarkable except in HPI and below Card: Reports: chest pain Resp: Reports: dyspnea [facility] ED PFSH: Medical History (Updated 04/13/23 @ 08:37 by Vikram Newman MD) Anxiety and depression CAD (coronary artery disease) Chewing tobacco nicotine dependence Age [age] (currently) Chronic right shoulder pain DDD (degenerative disc disease) Decreased glomerular filtration rate (GFR) Fall as cause of accidental injury at home as place of occurrence Fusion of lumbar spine Gout Hearing loss Hypertension Metatarsus adductus of both feet Migraines Osteoarthritis Pain of left knee and lower leg Parkinsons disease Pes planus of both feet Polyp of tongue TIA (transient ischemic attack) Surgical History (Updated 04/05/23 @ 13:42 by Wali Moon MD) History of back surgery x6 different surgeries on the spine History of esophagogastroduodenoscopy (EGD) 2009, repeat 12/27/2022 no abnormality, bx done History of total knee arthroplasty Left TKA x2 revision needed due to loosening of hardware, no history of infection Hx of bilateral hip replacements 3 on right hip and 0 left Hx of colonoscopy with polypectomy 2009, repeat 12/27/2022 with polyps, next in 5 years S/P cervical spinal fusion Status post surgery Family History Father Stroke Heart attack Brother Hypertension Sister Heart attack Social History (Reviewed 04/04/23 @ 12:19 by Sheila Guajardo Smoking and tobacco/nicotine status: current every day tobacco/nicotine user (chewing) smokeless tobacco Smokeless tobacco user: chewing tobacco Alcohol intake: former Substance/Drug Use: current Substance/Drug use frequency: other Other substance/drug use details: medical marijuana Caregiver/support person: No Lives independently: Yes Household members: none Marital status: Single Highest education level completed: Some College, No Degree service: No Current occupational status: retired and disabled Do you think of yourself as: Straight/Heterosexual Current gender identity: Male Physical Exam Const: COMMON NORMALS: no acute distress, average body habitus, patient oriented x3 and alert HENMT: COMMON NORMALS: normocephalic, atraumatic and Normal nasal mucous membranes and turbinates present HEAD & SCALP: normocephalic and atraumatic NOSE: Normal nasal mucous membranes and turbinates present Eye: COMMON NORMALS: Equal, round and reactive pupils present, EOMs intact bilaterally and normal visual harding by confrontation PUPIL: Yes Equal, round and reactive pupils present Neck/C-Spine: COMMON NORMALS: full ROM, no lymphadenopathy, supple and no meningeal signs Chest: COMMONS NORMALS: normal inspection of the chest and normal palpation of entire chest wall Resp: COMMON NORMALS: normal respiratory effort, No use of accessory muscles and clear to auscultation bilaterally AUSCULTATION: clear to auscultation bilaterally Cardio: COMMON NORMALS: regular rate, regular rhythm, S1 normal heart sound present, S2 normal heart sound present and Peripheral pulses 2+ throughout RATE: regular rate RHYTHM: regular rhythm HEART SOUNDS: S1 normal heart sound present and S2 normal heart sound present PERIPHERAL PULSES: Peripheral pulses 2+ throughout GI: COMMON NORMALS: Normal to inspection, nondistended, normoactive bowel sounds present, Soft to palpation and non-tender PALPATION: Yes Soft to palpation : COMMON NORMALS: Yes no CVA tenderness BLADDER/KIDNEY EXAM: Yes no CVA tenderness Back/Pelvis: COMMON NORMALS: no CVA tenderness, thoracic and lumbar spine normal to inspection, no thoracic nor lumbar tenderness and thoraco-lumbar ROM normal Extremity: COMMON NORMALS: normal to inspection, full ROM and capillary refill normal Neuro: COMMON NORMALS: patient oriented x3, moves all extremities, no focal motor deficits and no sensory deficits noted SENSORIUM/ORIENTATION: Yes alert MENINGEAL SIGNS: Yes no meningeal signs Psych: COMMON NORMALS: mental status grossly normal, Normal thought process present, speech normal and activity/motor behavior normal ATTITUDE: Yes agitated and Yes aggressive SPEECH: Yes normal speech THOUGHT PROCESS: Normal thought process present Skin: COMMON NORMALS: no rashes or lesions noted GENERAL SKIN EXAM: no rashes or lesions noted Course ED course: I had an extensive discussion with the patient regarding his laboratory findings as well as his radiographic films. Given the normal findings I did recommend that he follow-up with his primary care provider. Patient states that he is very concerned about his elevated blood pressure and I did advise him that on initial presentation today at 0 650 his blood pressure is 122/74 he does appear to be very agitated and is requesting to be placed into the hospital. I spent approximately 45 minutes discussing hospital requirements for admission and advised him that with all of his normal findings and the improvement of his blood pressure that he would not meet admission criteria and it would be best at this time for the patient to follow-up with his primary care provider and to provide a phone call to his office to let them know he was in the emergency department and was evaluated and cleared medically at this time. Patient then became concerned that he had not taken his metoprolol antihypertensive medication at home and that his blood pressure was 155 systolic. I did provide the patient hydralazine IV with resultant improvement of his blood pressure to 146/97 and a heart rate of 93. The patient ultimately stated that he would follow-up with his primary care provider I did advise him that if his symptoms worsened or returned that he may return to the emergency department at any time for any reason and the patient was provided discharge instructions and discharged home. Vital Signs: Vital signs: Vital Signs Temperature 98.4 F 04/13/23 05:10 Pulse Rate 93 04/13/23 09:11 Respiratory Rate 20 H 04/13/23 09:11 Blood Pressure 146/97 04/13/23 09:11 Pulse Oximetry 96 04/13/23 09:11 Oxygen Delivery Me thod Room Air 04/13/23 06:50 MDM - Chest Pain Medical Decision Making Physical exam completed, I will obtain a CBC and CMP as well as cardiac enzymes. Given the patient's recent surgical procedure of his left knee I will also obtain a CTA to rule out pulmonary embolism. 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 I have advised the patient that it is recommend that he receive a non-emergent MRI of the abdomen for further evaluation. Medical Records I reviewed the patient's medical records. Lab Data I reviewed the patient's lab results. 04/13/23 06:03 04/13/23 06:03 Radiology Impressions Chest X-Ray 04/13/23 05:36 IMPRESSION: No acute findings. Chest CTA 04/13/23 06:55 IMPRESSION: 1. Soft tissue mass measuring up to 4.5 cm located at the tail of the pancreas. This mass demonstrates homogeneous appearance identical to that of the adjacent splenic tissue. 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 Malignancy is not excluded. Recommend nonemergent MRI abdomen for further evaluation. 2. No evidence of pulmonary thromboembolism. Laboratory Results WBC 9.45 10^3/uL (3.29-11.43) 04/13/23 06:03 RBC 4.92 10^6/uL (3.85-5.65) 04/13/23 06:03 Hgb 13.80 g/dL (11.27-16.99) 04/13/23 06:03 Hct 42.3 % (37-53) 04/13/23 06:03 MCV 86.0 fl (82-101) 04/13/23 06:03 MCH 28.0 pg (27-33) 04/13/23 06:03 MCHC 32.6 g/dL (30-55) 04/13/23 06:03 RDW 13.7 % (12.1-15.1) 04/13/23 06:03 Plt Count 324 10^3/cmm (157-399) 04/13/23 06:03 MPV 9.0 fL (7.4-10.4) 04/13/23 06:03 Neut % (Auto) 75.9 % 04/13/23 06:03 Lymph % (Auto) 15.4 % 04/13/23 06:03 Bryan % (Auto) 6.7 % 04/13/23 06:03 Eos % (Auto) 1.3 % 04/13/23 06:03 Baso % (Auto) 0.3 % 04/13/23 06:03 Neut # (Auto) 7.17 10^3/uL (1.8-7.7) 04/13/23 06:03 Lymph # (Auto) 1.5 10^3/uL (0.8-4.8) 04/13/23 06:03 Bryan # (Auto) 0.6 10^3/uL (0.2-0.9) 04/13/23 06:03 Eos # (Auto) 0.1 10^3/uL (0.0-0.8) 04/13/23 06:03 Baso # (Auto) 0.0 10^3/uL (0.0-0.1) 04/13/23 06:03 Nucleated RBC % (auto) 0 % 04/13/23 06:03 Nucleated RBCs # 0.0 /100WBC 04/13/23 06:03 Sodium 138 mmol/L (136-145) 04/13/23 06:03 Potassium 3.4 mmol/L (3.5-5.1) L 04/13/23 06:03 Chloride 100 mmol/L (98-107) 04/13/23 06:03 Carbon Dioxide 25 mmol/L (22-29) 04/13/23 06:03 Anion Gap 16.4 (5-19) 04/13/23 06:03 BUN 16 mg/dL (6-20) 04/13/23 06:03 Creatinine 0.7 mg/dL (0.7-1.2) 04/13/23 06:03 GFR Calculation 115.8 mL/min (90-130) 04/13/23 06:03 Glucose 125 mg/dL (65-115) H 04/13/23 06:03 POC Glucose 123 mg/dL (70-110) H 04/13/23 07:22 Calculated Osmolality 289 mOsm/kg (285-295) 04/13/23 06:03 Calcium 8.9 mg/dL (8.5-10.5) 04/13/23 06:03 Total Bilirubin 0.3 mg/dL (0.15-1.2) 04/13/23 06:03 AST 11 U/L (0-40) 04/13/23 06:03 ALT < 5 U/L (0-41) 04/13/23 06:03 Alkaline Phosphatase 80 U/L (40-130) 04/13/23 06:03 Creatine Kinase 88 U/L (39-308) 04/13/23 06:03 Troponin T Baseline 7 ng/L (0-15) 04/13/23 06:03 Troponin T 120 Minute 7.56 ng/L (0-15) 04/13/23 07:56 Delta Troponin T 0.56 ABS# (0-10) 04/13/23 07:56 NT-Pro-B Natriuret Pep 88 pg/mL (0-125) 04/13/23 06:03 Total Protein 6.1 g/dL (6.6-8.7) L 04/13/23 06:03 Albumin 3.4 g/dL (3.5-5.2) L 04/13/23 06:03 Globulin 2.7 g/dL (1.3-4.6) 04/13/23 06:03 All radiology interpretation(s) finalized by discharge ED provider radiology interpretation(s): CXR: FINDINGS: Lungs: Low lung volumes. No focal consolidation. Pleural spaces: No large pleural effusion. No significant pneumothorax. Heart/Mediastinum: Cardiomediastinal silhouette is midline and normal in size. Bones/joints: Osseous structures are unchanged. Partially imaged cervical/cervicothoracic fusion. XR/XR chest 1V portable [id number] IMPRESSION: No acute findings Discharge Plan Discharge Patient Disposition: Home Clinical Impression: Chest pain, non-cardiac, Atypical chest pain Condition: Stable Prescriptions: No Action omeprazole 40 mg capsule,delayed release(DR/EC) 40 mg PO QAM Qty: 90 1RF baclofen 20 mg tablet 20 mg PO BID Qty: 20 0RF acetaminophen 500 mg Tablet 1,000 mg PO BID aspirin [Aspir-81] 81 mg Tablet,Delayed Release (Dr/Ec) 81 mg PO DAILY carbidopa-levodopa 25-250 mg tablet 2 - 2.5 tab PO Q6H metoprolol tartrate 50 mg tablet 50 mg PO BID Discharge Orders: Discharge ED (Routine); Ordered 04/13/23 Ordered By: Vikram Newman Referrals: Wali Moon MD [Primary Care Provider] - Discharge Diet: Advance as tolerated Discharge Activity: Resume usual activity Coding Level of Care Code ED Liquor Merchant for Chg Fwd
[2023-04-13 06:50] VITALS: BP 151/87; PULSE 90; RESP 12; O2SAT 100
[2023-04-13 06:50] LABS: Troponin(5th) Baseline 7 ng/L (0-15)
[2023-04-13 06:55] LABS: Alanine Aminotransferase < 5 U/L (0-41); Albumin Level 3.4 g/dL (3.5-5.2); Alkaline Phosphatase 80 U/L (40-130); Anion Gap 16.4 (5-19); Aspartate Amino Transferase 11 U/L (0-40); Blood Urea Nitrogen 16 mg/dL (6-20); Calcium 8.9 mg/dL (8.5-10.5); Carbon Dioxide 25 mmol/L (22-29); Chloride 100 mmol/L (98-107); Creatine Phosphokinase 88 U/L (39-308); Globulin 2.7 g/dL (1.3-4.6); Glomerular Filtration Rate 115.8 mL/min (90-130); Glucose 125 mg/dL (65-115); NT Pro B Type Natriuretic Pept 88 pg/mL (0-125); Osmolality Calculated 289 mOsm/kg (285-295); Potassium 3.4 mmol/L (3.5-5.1); Sodium 138 mmol/L (136-145); Total Bilirubin 0.3 mg/dL (0.15-1.2); Total Protein 6.1 g/dL (6.6-8.7)
--- NOTE | 2023-04-13 06:55 | CTR_ITS ---
PROCEDURE INFORMATION: Exam: CTA Chest With Contrast Exam date and time: 04/13/2023 7:12 AM Age: 57 years old Clinical indication: Dyspnea; Additional info: Dyspnea, recent ortho procdure TECHNIQUE: Imaging protocol: Computed tomographic angiography of the chest with contrast. Exam focused on the arteries. 3D rendering (Not supervised by radiologist): MIP and/or 3D reconstructed images were created by the technologist. Radiation optimization: All CT scans at this facility use at least one of these dose optimization techniques: automated exposure control; mA and/or kV adjustment per patient size (includes targeted exams where dose is matched to clinical indication); or iterative reconstruction. Contrast material: OMNI 350; Contrast volume: 66 ml; Contrast route: INTRAVENOUS (IV); REPORTING DATA: Count of CT and Cardiac NM exams in prior 12 months: This patient has received 14 known CTs and 0 known cardiac nuclear medicine studies in the 12 months prior to the current study. COMPARISON: CT chest w con* [id number] 01/16/2023 4:44 PM RADIATION DOSE METRICS: Total DLP (mGy-cm): 422.85 FINDINGS: Pulmonary arteries: No evidence of pulmonary thromboembolism. Aorta: Aorta and its major branches are within normal limits. Thyroid: Thyroid is normal. Lungs: Low lung volumes. Mild dependent atelectasis. Pleural spaces: No pleural effusion. No pneumothorax. Heart: Heart is normal in size. No pericardial effusion. Lymph nodes: No suspicious lymphadenopathy. Pancreas: Soft tissue mass measuring up to 4.5 cm located at the tail of the pancreas. This mass demonstrates homogeneous appearance identical to that of the adjacent splenic tissue. Mild fatty atrophy of the pancreas. Stomach and bowel: 4.0 cm duodenal diverticulum noted. Bones/joints: Partially imaged cervical and cervicothoracic fusion hardware. Mild multilevel spondylosis. No acute osseous findings. Soft tissues: Superficial soft tissues are within normal limits. CT/CT angio chest PE protcl [id number] IMPRESSION: 1. Soft tissue mass measuring up to 4.5 cm located at the tail of the pancreas. This mass demonstrates homogeneous appearance identical to that of the adjacent splenic tissue. 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 Malignancy is not excluded. Recommend nonemergent MRI abdomen for further evaluation. 2. No evidence of pulmonary thromboembolism.
[2023-04-13] MEDS: iohexol 350 mg/mL 500 mL Btl (per mL) IV (07:18)
[2023-04-13 07:30] VITALS: BP 159/99; PULSE 92; O2SAT 94
[2023-04-13 07:33] LABS: Glucose Point of Care 123 mg/dL (70-110)
--- NOTE | 2023-04-13 07:36 | ECG_ITS ---
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 Measurements Intervals [place] Rate: 96 P: 62 ND: 153 QRS: 8 QRSD: 98 T: 12 QT: 386 QTc: 490 Interpretive Statements SINUS RHYTHM NONSPECIFIC T-WAVE ABNORMALITY Compared to ECG 04/13/2023 05:11:26 No significant changes Electronically Signed On 04-13-2023 11:15:14 CDT by Rashad El M.D. [email or web address]
[2023-04-13 08:30] VITALS: BP 155/99
[2023-04-13 08:33] LABS: Troponin 5 2HR 7.56 ng/L (0-15); Troponin 5 2HR Delta 0.56 ABS# (0-10)
--- NOTE | 2023-04-13 08:56 | PC.NURSE ---
At time of DC PT requested to physician to have his blood pressure addressed. PT Blood pressure at time was 155/99. Physician agreed to address blood pressure and have PT follow up with BP log to his PCP. PT in NAD, VSS will address blood pressure and reassess for DC
[2023-04-13 09:00] VITALS: BP 146/97
[2023-04-13] MEDS: hyDRALAzine 20 mg/mL INJ 1 mL 10 MG IVP (09:00)
[2023-04-13 09:11] VITALS: BP 146/97; PULSE 93; RESP 20; O2SAT 96
== END 2023-04-13 09:12 | disposition home or self-care (01) ==
PROVIDERS: Emergency Medicine; Emergency Provider Internal Medicine; PCP Family Medicine Adult Medicine
DX: R07.89 Other chest pain (principal); Z79.82 Long term (current) use of aspirin; F17.220 Nicotine dependence, chewing tobacco, uncomplicated; I25.10 Atherosclerotic heart disease of native coronary artery without angina pectoris; I10 Essential (primary) hypertension; G20.A1 Parkinson's disease without dyskinesia, without mention of fluctuations; Z86.73 Personal history of transient ischemic attack (TIA), and cerebral infarction without residual deficits
CPT/HCPCS: 36415; 36416; 71045; 71275; 80053; 82550; 82962; 83880; 84484; 85025; 93005; 96374; 99285; J0360; Q9967

== ENCOUNTER 2023-05-31 00:20 | Emergency (ER) | payer MEDICARE, MEDICAID, SELFPAY ==
[2023-05-31 00:22] VITALS: BP 120/82; PULSE 81; RESP 18; TEMP 36.4; O2SAT 99; BMI 26.6
--- NOTE | 2023-05-31 00:25 | XRR_ITS ---
PROCEDURE INFORMATION: Exam: XR Left Shoulder Exam date and time: 05/31/2023 12:50 AM Age: 58 years old Clinical indication: Pain and injury or trauma; Fall; Blunt trauma (contusions or hematomas); Shoulder; Left; Additional info: Fall/trauma TECHNIQUE: Imaging protocol: Radiologic exam of the left shoulder. Views: 2 or more views. COMPARISON: CT angio chest PE protcl [id number] 04/13/2023 7:12 AM FINDINGS: Bones/joints: Anterior posterior cervical spine fusion hardware is present. No acute fractures in the left shoulder. Negative for dislocation. Acromioclavicular joint osseous spurring changes. Negative for bone erosion. Soft tissues: Normal. XR/XR shoulder LT min 2V* [id number] IMPRESSION: Negative for acute left shoulder pathology.
--- NOTE | 2023-05-31 00:25 | XRR_ITS ---
PROCEDURE INFORMATION: Exam: XR Bilateral Hips Exam date and time: 05/31/2023 12:57 AM Age: 58 years old Clinical indication: Pain and injury or trauma; Fall; Blunt trauma (contusions or hematomas); Bilateral; Pelvic region; Pelvic pain; Prior surgery; Surgery date: 6+ months; Surgery type: RT hip; Additional info: Fall/pain TECHNIQUE: Imaging protocol: Radiologic exam of the bilateral hips. Views: 2 views of hips with pelvis when performed. COMPARISON: CR XR hip LT 2-3V wo/w pel* [id number] 01/03/2023 11:21 PM FINDINGS: Bones/joints: Unilateral left-sided posterior fusion of L4-L5. Right hip arthroplasty is unremarkable in alignment. Negative for acute fractures. Unremarkable pelvic ring alignment. Soft tissues: Unremarkable. XR/XR hip BI 2V wo/w pel [id number] IMPRESSION: Negative for acute pelvis pathology.
--- NOTE | 2023-05-31 00:34 | W.ED.FALL ---
HPI - Fall General: Chief Complaint: Fall Stated Complaint: fall Time Seen by Provider: 05/31/23 00:21 History of Present Illness: 58-year-old male presents to the emergency department via EMS personnel. He states he tripped on a dog toy at his home falling into the wall he does have superficial abrasions to the left side of his face and his left knee. He states his shoulder is an aching throbbing type pain that is a 7 out of 10 hurts worse when he moves. He was able to scoot to the ER bed from the ER cot without difficulty. He does have superficial abrasions to the left knee. He states that his left hip hurts although he was able to use it to scoot his cell from the ER cot to the ER bed. He denies numbness or tingling to the extremity. There is a superficial abrasion to the left knee into the left side of his face. He denies neck pain, headache nausea or vomiting or loss of consciousness. Review of Systems General: Reports: 10 or more systems reviewed and unremarkable except in HPI and below Musc: Reports: extremity pain and joint pain PFSH ED PFSH: Medical History (Updated 06/26/23 @ 07:03 by Vikram Newman MD) Fall as cause of accidental injury at home as place of occurrence Pain of left knee and lower leg TIA (transient ischemic attack) Fusion of lumbar spine Chewing tobacco nicotine dependence Age [age] (currently) Polyp of tongue Hypertension CAD (coronary artery disease) Decreased glomerular filtration rate (GFR) Pes planus of both feet Metatarsus adductus of both feet Hearing loss Chronic right shoulder pain Anxiety and depression DDD (degenerative disc disease) Migraines Osteoarthritis Gout Parkinsons disease Surgical History (Updated 04/05/23 @ 13:42 by Wali Moon MD) Hx of bilateral hip replacements 3 on right hip and 0 left Hx of colonoscopy with polypectomy 2009, repeat 12/27/2022 with polyps, next in 5 years History of esophagogastroduodenoscopy (EGD) 2009, repeat 12/27/2022 no abnormality, bx done S/P cervical spinal fusion History of total knee arthroplasty Left TKA x2 revision needed due to loosening of hardware, no history of infection Status post surgery History of back surgery x6 different surgeries on the spine Family History Father Stroke Heart attack Brother Hypertension Sister Heart attack Social History Smoking and tobacco/nicotine status: current every day tobacco/nicotine user (chewing) smokeless tobacco Smokeless tobacco user: chewing tobacco Alcohol intake: former Substance/Drug Use: current Substance/Drug use frequency: other Other substance/drug use details: medical marijuana Caregiver/support person: No Lives independently: Yes Household members: none Marital status: Single Highest education level completed: Some College, No Degree service: No Current occupational status: retired and disabled Do you think of yourself as: Straight/Heterosexual Current gender identity: Male Physical Exam Narrative: EXAM NARRATIVE: Constitutional: the patient appears well nourished and with normal development. Vital signs reviewed as documented. HENMT: Normocephalic, atraumatic. Extermal ears with normal appearance without drainage. Nose without drainage, normal appearance. Mucus membranes moist. Neck is supple, No jugular venous distension, trachea is midline, no appreciable carotid bruits. No lymphadenopathy. No meningeal signs. Flexion, extension and lateral rotation is without pain. Eyes: Pupils are equal, round, reactive to light and accommodation. No scleral icterus. Extra-ocular movement are intact. Thorax is symmetrical and with equal rise and fall with respirations. Resp: Lungs are clear to auscultation. No wheezes, rales, crackles or ronchi at present. Cardio: Regular rate and rhythm. Positive S1, S2. No appreciable murmurs, rubs or gallops. GI: Abdominal exam reveals normal bowel sounds to all quadrants. No organomegaly. No obvious palpable masses noted. No hepatomegally appreciated. Soft, nontender to palpation. Extremity: Extremities are non-edematous and both femoral and pedal pulses are 2+ and equal bilaterally. Moves all extremities well, sensation in all extremities. Neuro: Alert and oriented x4, person, place, time and situation. Cranial nerves II through XII are grossly intact, there is no focal neurological deficits that I can appreciate at present. Motor strength in the upper and lower extremities are equal and bilateral 5/5. Psych: Cooperative, calm, normal thought process, appropriate judgment. Skin: No lesions, rashes. Superficial abrasion to the left knee anterior aspect, superficial abrasion noted to the left forehead and left zygomatic arch area. Back: Symmetrical, no obvious deformity, No CVA tenderness Course Vital Signs: Vital signs: Vital Signs Temperature 97.5 F L 05/31/23 00:22 Pulse Rate 90 05/31/23 03:23 Respiratory Rate 16 05/31/23 03:23 Blood Pressure 120/82 05/31/23 03:23 Pulse Oximetry 98 05/31/23 03:23 Oxygen Delivery Me thod Room Air 05/31/23 02:43 MDM - Fall Medical Decision Making Physical exam completed and documented, I will obtain a radiographic examination of the patient's left shoulder as well as his left hip. Medical Records I reviewed the patient's medical records. Lab Data Radiology Impressions Hip/Pelvis X-Ray 05/31/23 00:25 IMPRESSION: Negative for acute pelvis pathology. Shoulder X-Ray 05/31/23 00:25 IMPRESSION: Negative for acute left shoulder pathology. All radiology interpretation(s) finalized by discharge Discharge Plan Discharge Patient Disposition: Home Clinical Impression: Accidental fall, Contusion of hip, left, Contusion of face Condition: Stable Prescriptions: No Action omeprazole 40 mg capsule,delayed release(DR/EC) 40 mg PO QAM Qty: 90 1RF baclofen 20 mg tablet 20 mg PO BID Qty: 20 0RF acetaminophen 500 mg Tablet 1,000 mg PO BID aspirin [Aspir-81] 81 mg Tablet,Delayed Release (Dr/Ec) 81 mg PO DAILY carbidopa-levodopa 25-250 mg tablet 2 - 2.5 tab PO Q6H metoprolol tartrate 50 mg tablet 50 mg PO BID Discharge Orders: Discharge ED (Routine); Ordered 05/31/23 Ordered By: Vikram Newman Referrals: Wali Moon MD [Primary Care Provider] - Discharge Diet: Advance as tolerated Discharge Activity: Resume usual activity Patient Instructions: Opioid Safety, Pain Management Activity Restrictions/Additional Instructions: Activity Restrictions/Additional Instructions: Thank you for choosing [facility] for your healthcare needs today. Please realize that you were seen in the Emergency Department and that we are providing you with an emergency medical screening exam and this may not be a complete and all inclusive of all the testing and or medical work-up that you may need to determine your ailment or severity of your illness. It is very important that you follow-up as instructed with your Primary care provider or Specialist for additional evaluation and to discuss your medical treatment plan. You may return to the Emergency Department should you have concerns or if your condition changes or worsens in any way. Coding Level of Care Code ED Twist Packer for Mu Pressley
[2023-05-31 02:43] VITALS: BP 120/82; PULSE 85; O2SAT 95
[2023-05-31 03:23] VITALS: BP 120/82; PULSE 90; RESP 16; O2SAT 98
== END 2023-05-31 03:34 | disposition home or self-care (01) ==
PROVIDERS: Emergency Provider Internal Medicine; PCP Family Medicine Adult Medicine
DX: S00.83XA Contusion of other part of head, initial encounter (principal); S70.02XA Contusion of left hip, initial encounter; W18.09XA Striking against other object with subsequent fall, initial encounter; Z79.82 Long term (current) use of aspirin; F17.220 Nicotine dependence, chewing tobacco, uncomplicated; Z86.73 Personal history of transient ischemic attack (TIA), and cerebral infarction without residual deficits; I10 Essential (primary) hypertension; I25.10 Atherosclerotic heart disease of native coronary artery without angina pectoris; G20.A1 Parkinson's disease without dyskinesia, without mention of fluctuations
CPT/HCPCS: 73030; 73521; 99284

== ENCOUNTER 2023-08-12 20:22 | Emergency (ER) | payer MEDICARE, MEDICAID, SELFPAY ==
[2023-08-12 20:28] VITALS: BP 156/96; PULSE 87; RESP 16; TEMP 36.4; O2SAT 100; BMI 27.4
--- NOTE | 2023-08-12 20:45 | CTR_ITS ---
PROCEDURE INFORMATION: Exam: CT Head Without Contrast Exam date and time: 08/12/2023 8:50 PM Age: 58 years old Clinical indication: Pain; Syncope and collapse; Headache; Patient HX: Syncopal episode. C/O OCHOA. TECHNIQUE: Imaging protocol: Computed tomography of the head without contrast. Radiation optimization: All CT scans at this facility use at least one of these dose optimization techniques: automated exposure control; mA and/or kV adjustment per patient size (includes targeted exams where dose is matched to clinical indication); or iterative reconstruction. COMPARISON: CT head wo con* [id number] 03/03/2023 12:40 AM RADIATION DOSE METRICS: Total DLP (mGy-cm): 996.1 FINDINGS: Brain: Normal. No hemorrhage. Unremarkable white matter. No mass effect. Cerebral ventricles: No ventriculomegaly. Pituitary gland and sella: There is a partially empty sella. Paranasal sinuses: Visualized sinuses are unremarkable. No fluid levels. Mastoid air cells: Visualized mastoid air cells are well aerated. Bones/joints: Unremarkable. No acute fracture. Soft tissues: Unremarkable. CT/CT head wo con* [id number] IMPRESSION: No large territorial infarct or intracranial bleed.
--- NOTE | 2023-08-12 20:45 | XRR_ITS ---
PROCEDURE INFORMATION: Exam: XR Right Foot Exam date and time: 08/12/2023 8:57 PM Age: 58 years old Clinical indication: Pain; Foot; Right TECHNIQUE: Imaging protocol: Radiologic exam of the right foot. Views: 3 or more views. COMPARISON: MR ankle RT wo con* [id number] 11/14/2022 10:05 AM FINDINGS: Bones/joints: Moderate degenerative disease of the interphalangeal joint of the big toe. Mild degenerative disease of the 1st metatarsophalangeal joint with hallux valgus. Chronic erosions of the head of 1st metatarsal. Achilles enthesophyte. Soft tissues: Normal. XR/XR foot RT min 3V* [id number] IMPRESSION: No acute fracture or dislocation. Degenerative disease of the big toe.
--- NOTE | 2023-08-12 20:46 | W.ED.SYNCOPE ---
HPI - Syncope General: Chief Complaint: Syncope Stated Complaint: syncopal episode Time Seen by Provider: 08/12/23 20:40 Source: patient and EMS Mode of arrival: EMS Limitations: no limitations History of Present Illness: 58-year-old male states that he has been having optical migraines over the last week or so. He states he has been having these headaches and feeling lightheaded states he had a syncopal episode outside tonight and his neighbors did called EMS he denies hitting his head states his headaches currently 6 out of 10 he denies chest pain or shortness of breath he states that he thought he had a recent gout flare to his right foot started taking prednisone and colchicine has not been taking his blood pressure medicines. Denies any fevers. Associated symptoms: Reports headache(s); Deny abdominal pain, chest pain, fever(s) or nausea Review of Systems Const: Reports: malaise; Denies: fever(s), chills, body aches or change in appetite Eyes: Denies: blurry vision or eye discomfort ENMT: Denies: throat pain or dental pain Card: Reports: syncope; Denies: chest pain Resp: Denies: dyspnea GI: Denies: abdominal pain, nausea, vomiting or diarrhea Musc: Reports: extremity pain; Denies: neck pain or back pain Skin/Breast: Denies: rash Neuro: Reports: headache(s) [facility] ED PFSH: Medical History Pre-diabetes TIA (transient ischemic attack) Fusion of lumbar spine Chewing tobacco nicotine dependence Age [age] (currently) Hypertension CAD (coronary artery disease) Anxiety and depression DDD (degenerative disc disease) Migraines Osteoarthritis Gout Parkinsons disease Surgical History History of total knee arthroplasty Left TKA x2 revision needed due to loosening of hardware, no history of infection Hx of bilateral hip replacements 3 on right hip and 0 left Hx of colonoscopy with polypectomy 2009, repeat 12/27/2022 with polyps, next in 5 years History of esophagogastroduodenoscopy (EGD) 2009, repeat 12/27/2022 no abnormality, bx done S/P cervical spinal fusion Status post surgery History of back surgery x6 different surgeries on the spine Family History Father Stroke Heart attack Brother Hypertension Sister Heart attack Social History Smoking and tobacco/nicotine status: current every day tobacco/nicotine user (chewing) smokeless tobacco Smokeless tobacco user: chewing tobacco Alcohol intake: former Substance/Drug Use: current Substance/Drug use frequency: other Other substance/drug use details: medical marijuana Caregiver/support person: No Lives independently: Yes Household members: none Marital status: Single Highest education level completed: Some College, No Degree service: No Current occupational status: retired and disabled Do you think of yourself as: Straight/Heterosexual Current gender identity: Male Physical Exam Const: COMMON NORMALS: no acute distress, patient oriented x3 and healthy appearing HENMT: COMMON NORMALS: normocephalic and atraumatic HEAD & SCALP: normocephalic and atraumatic Eye: COMMON NORMALS: Equal, round and reactive pupils present and EOMs intact bilaterally PUPIL: Yes Equal, round and reactive pupils present Neck/C-Spine: COMMON NORMALS: full ROM and supple Chest: COMMONS NORMALS: normal inspection of the chest Resp: COMMON NORMALS: normal respiratory effort, No retractions, No use of accessory muscles and clear to auscultation bilaterally AUSCULTATION: clear to auscultation bilaterally Cardio: COMMON NORMALS: regular rate, regular rhythm and No murmurs present (Cardio) RATE: regular rate RHYTHM: regular rhythm GI: COMMON NORMALS: Normal to inspection, nondistended, normoactive bowel sounds present, Soft to palpation, non-tender and no masses PALPATION: Yes Soft to palpation Extremity: COMMON NORMALS: normal to inspection and full ROM Neuro: COMMON NORMALS: patient oriented x3, moves all extremities and no focal motor deficits Psych: COMMON NORMALS: mental status grossly normal, Normal thought process present and cooperative THOUGHT PROCESS: Normal thought process present Skin: COMMON NORMALS: no rashes or lesions noted and no wounds GENERAL SKIN EXAM: no rashes or lesions noted Course Vital Signs: Vital signs: Vital Signs Temperature 97.6 F 08/12/23 20:28 Pulse Rate 87 08/12/23 22:40 Respiratory Rate 18 08/12/23 22:40 Blood Pressure 153/99 08/12/23 22:40 Pulse Oximetry 96 08/12/23 22:40 Oxygen Delivery Me thod Room Air 08/12/23 22:40 MDM - Syncope Medical Decision Making Patient presents here after a syncopal event blood work here is normal except for hypokalemia will replace at home with oral potassium imaging here is normal as well he feels improved he is stable for discharge she is follow-up with PCP and return if worsening. Medical Records I reviewed the patient's medical records. Lab Data I reviewed the patient's lab results. 08/12/23 21:08/12/23 21: Radiology Impressions Foot X-Ray 08/12/23 20:45 IMPRESSION: No acute fracture or dislocation. Degenerative disease of the big toe. Head CT 08/12/23 20:45 IMPRESSION: No large territorial infarct or intracranial bleed. Laboratory Results WBC 11.19 10^3/uL (3.29-11.43) 08/12/23: RBC 5.76 10^6/uL (3.85-5.65) H 08/12/23: Hgb 16.20 g/dL (11.27-16.99) 08/12/23: Hct 51.2 % (37-53) 08/12/23: MCV 88.9 fl (82-101) 08/12/23: MCH 28.1 pg (27-33) 08/12/23 21: MCHC 31.6 g/dL (30-55) 08/12/23: RDW 15.1 % (12.1-15.1) 08/12/23: Plt Count 262 10^3/cmm (157-399) 08/12/23 21: MPV 9.3 fL (7.4-10.4) 08/12/23: Neut % (Auto) 69.0 % 08/12/23: Lymph % (Auto) 23.9 % 08/12/23: Wallace % (Auto) 5.5 % 08/12/23: Eos % (Auto) 0.7 % 08/12/23: Baso % (Auto) 0.4 % 08/12/23: Neut # (Auto) 7.72 10^3/uL (1.8-7.7) H 08/12/23 21: Lymph # (Auto) 2.7 10^3/uL (0.8-4.8) 08/12/23: Wallace # (Auto) 0.6 10^3/uL (0.2-0.9) 08/12/23 21: Eos # (Auto) 0.1 10^3/uL (0.0-0.8) 08/12/23: Baso # (Auto) 0.1 10^3/uL (0.0-0.1) 08/12/23: Nucleated RBC % (auto) 0 % 08/12/23: Nucleated RBCs # 0.0 /100WBC 08/12/23: Sodium 145 mmol/L (136-145) 08/12/23: Potassium 2.8 mmol/L (3.5-5.1) L* 08/12/23: Chloride 106 mmol/L (98-107) 08/12/23: Carbon Dioxide 24 mmol/L (22-29) 08/12/23: Anion Gap 17.8 (5-19) 08/12/23: BUN 19 mg/dL (6-20) 08/12/23: Creatinine 0.8 mg/dL (0.7-1.2) 08/12/23: GFR Calculation 98.9 mL/min (90-130) 08/12/23: Glucose 97 mg/dL (65-115) 08/12/23: Calculated Osmolality 302 mOsm/kg (285-295) H 08/12/23: Calcium 9.5 mg/dL (8.5-10.5) 08/12/23: Total Bilirubin 0.3 mg/dL (0.15-1.2) 08/12/23: AST 9 U/L (0-40) 08/12/23: ALT < 5 U/L (0-41) 08/12/23: Alkaline Phosphatase 90 U/L (40-130) 08/12/23: Total Protein 7.4 g/dL (6.6-8.7) 02/26/24 21:27 Albumin 3.8 g/dL (3.5-5.2) 08/12/23 21:27 Globulin 3.6 g/dL (1.3-4.6) 08/12/23 21:27 All radiology interpretation(s) finalized by discharge EKG Data EKG 1: I personally reviewed and interpreted this EKG as follows: EKG interpretation date: 08/12/23 EKG interpretation time: 22:10 Interpretation: nsr hr [address] or t wave abnormalities qrs 83 qtc 422 Discharge Plan Discharge Patient Disposition: Home Clinical Impression: Syncope, Hypokalemia Condition: Stable Prescriptions: New potassium chloride 20 mEq packet 20 meq PO BID Qty: 10 0RF No Action baclofen 20 mg tablet 20 mg PO BID Qty: 20 0RF omeprazole 40 mg capsule,delayed release(DR/EC) 40 mg PO QAM Qty: 90 1RF acetaminophen 500 mg Tablet 1,000 mg PO BID aspirin [Aspir-81] 81 mg Tablet,Delayed Release (Dr/Ec) 81 mg PO DAILY carbidopa-levodopa 25-250 mg tablet 2 - 2.5 tab PO Q6H metoprolol tartrate 50 mg tablet 50 mg PO BID Discharge Orders: Discharge ED (Routine); Ordered 08/12/23 Ordered By: Heidi Abreu Referrals: Wali Moon MD [Primary Care Provider] - 4-7 days Discharge Diet: Advance as tolerated Discharge Activity: Resume usual activity Patient Instructions: Hypokalemia (ED), Syncope (ED) Coding Level of Care Code ED Signal Maintenance Technician for Mu Pressley
[2023-08-12 21:06] VITALS: BP 182/102; PULSE 80; RESP 18; O2SAT 91
[2023-08-12] MEDS: ondansetron 2 mg/ML SDV 2 mL 4 MG IVP (21:21)
[2023-08-12] MEDS: morphine 4 mg/mL SDV 1 mL IVP (21:23)
--- NOTE | 2023-08-12 21:23 | PC.NURSE ---
Per Dr Abreu verbal order patient was given his IV medications IM due to IV being blown prior to administering them.
[2023-08-12 21:41] VITALS: PULSE 78; RESP 14; O2SAT 94
[2023-08-12 21:44] LABS: Basophils # 0.1 10^3/uL (0.0-0.1); Basophils % 0.4 %; Eosinophils # 0.1 10^3/uL (0.0-0.8); Eosinophils % 0.7 %; Hematocrit 51.2 % (37-53); Lymphocytes # 2.7 10^3/uL (0.8-4.8); Lymphocytes % 23.9 %; Mean Corpuscular HGB Conc 31.6 g/dL (30-55); Mean Corpuscular Hemoglobin 28.1 pg (27-33); Mean Corpuscular Volume 88.9 fl (82-101); Mean Platelet Volume 9.3 fL (7.4-10.4); Monocytes # 0.6 10^3/uL (0.2-0.9); Monocytes % 5.5 %; Neutrophils # 7.72 10^3/uL (1.8-7.7); Nucleated Red Blood Cells % 0 %; Platelet Count 262 10^3/cmm (157-399); Red Blood Count 5.76 10^6/uL (3.85-5.65); Red Cell Distribution Width 15.1 % (12.1-15.1); White Blood Count 11.19 10^3/uL (3.29-11.43)
[2023-08-12 22:00] LABS: Alanine Aminotransferase < 5 U/L (0-41); Albumin Level 3.8 g/dL (3.5-5.2); Alkaline Phosphatase 90 U/L (40-130); Anion Gap 17.8 (5-19); Aspartate Amino Transferase 9 U/L (0-40); Blood Urea Nitrogen 19 mg/dL (6-20); Calcium 9.5 mg/dL (8.5-10.5); Carbon Dioxide 24 mmol/L (22-29); Chloride 106 mmol/L (98-107); Creatinine Clr Calc Pharmacy 93.9898; Globulin 3.6 g/dL (1.3-4.6); Glomerular Filtration Rate 98.9 mL/min (90-130); Glucose 97 mg/dL (65-115); Osmolality Calculated 302 mOsm/kg (285-295); Sodium 145 mmol/L (136-145); Total Bilirubin 0.3 mg/dL (0.15-1.2); Total Protein 7.4 g/dL (6.6-8.7)
[2023-08-12] MEDS: hyDRALAzine 20 mg/mL INJ 1 mL 10 MG IM (22:01)
[2023-08-12 22:02] LABS: Potassium 2.8 mmol/L (3.5-5.1)
--- NOTE | 2023-08-12 22:10 | ECG_ITS ---
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 Measurements Intervals [place] Rate: 77 P: 58 [place]: 148 QRS: 22 QRSD: 83 T: 59 QT: 390 QTc: 443 Interpretive Statements SINUS RHYTHM NONSPECIFIC T-WAVE ABNORMALITY Compared to ECG 04/13/2023 07:25:14 No significant changes Electronically Signed On 08-13-2023 0:44:12 HALF SECTION IRONER by Kalia Duff M.D. [email or web address]
[2023-08-12] MEDS: potassium chloride ER 20 mEq Tablet 60 MEQ PO (22:39)
[2023-08-12 22:40] VITALS: BP 153/99; PULSE 87; RESP 18; O2SAT 96
== END 2023-08-12 22:49 | disposition home or self-care (01) ==
PROVIDERS: Emergency Provider Emergency Medicine; PCP Family Medicine Adult Medicine
DX: R55 Syncope and collapse (principal); E87.6 Hypokalemia; Z79.82 Long term (current) use of aspirin; F17.220 Nicotine dependence, chewing tobacco, uncomplicated; Z86.73 Personal history of transient ischemic attack (TIA), and cerebral infarction without residual deficits; I10 Essential (primary) hypertension; I25.10 Atherosclerotic heart disease of native coronary artery without angina pectoris; G20.A1 Parkinson's disease without dyskinesia, without mention of fluctuations
CPT/HCPCS: 36415; 70450; 73630; 80053; 85025; 93005; 96372; 96374; 96375; 99285; J0360; J2270; J2405

== ENCOUNTER 2023-09-02 15:57 | Emergency (ER) | payer MEDICARE, MEDICAID, SELFPAY ==
--- NOTE | 2023-09-02 16:00 | ED_ITS ---
Documented by User: NADEEM Kebede 09/02/23 16:24 HPI - Fall General: Chief Complaint: Fall Stated Complaint: neck and back pain post fall Time Seen by Provider: 09/02/23 15:58 Source: patient Mode of arrival: EMS Limitations: no limitations History of Present Illness: Patient is a 58-year-old male who presents to ED today via EMS for evaluation following a fall. Patient states just prior to arrival he was coming inside his home when he accidentally tripped over his dog and fell. Patient does believe he struck his head with questionable LOC. He arrives today in a c-collar from EMS. He does complain of some neck pain. His main complaint is lower back pain. He is not having any chest or abdominal pain. He is also reporting some mild bilateral hip pain. Patient is not on anticoagulation. He has many allergies to pain medications listed but states they are only listed secondary to sobriety and he actually does not have true allergies to these . He is r equesting something for pain upon arrival. He was not administered anything by EMS. MD complaint: fall Onset (ago): hour(s) Fall from: standing Fall witnessed: no Place fall occurred: home Loss of consciousness: Unsure Prolonged down time: no Symptoms prior to fall: none Context: tripped/slipped Location of injury: head, neck and back Severity: severe Associated symptoms-after fall: Reports difficulty walking and neck pain; Denies abdominal pain, chest pain, headache(s), hematuria or lightheadedness Review of Systems Eyes: Denies: change in vision, blurry vision, photophobia, eye discharge, floaters or seeing flashes ENMT: Denies: throat pain, odynophagia, ear or mastoid pain, ear discharge, nasal discharge, epistaxis or sinus pain Card: Denies: chest pain, palpitations, lightheadedness, syncope or pre- syncope Resp: Denies: dyspnea or pain on inspiration GI: Denies: abdominal pain : Denies: flank pain or hematuria Musc: Reports: neck pain, back pain and joint pain (bilateral hips); Denies: extremity pain or extremity swelling Neuro: Reports: difficulty walking; Denies: headache(s), numbness in extremities, weakness in extremities, sensory changes or dizziness PFS ED PFSH: Medical History Pre-diabetes TIA (transient ischemic attack) Fusion of lumbar spine Chewing tobacco nicotine dependence Age [age] (currently) Hypertension CAD (coronary artery disease) Anxiety and depression DDD (degenerative disc disease) Migraines Osteoarthritis Gout Parkinsons disease Surgical History History of total knee arthroplasty Left TKA x2 revision needed due to loosening of hardware, no history of infection Hx of bilateral hip replacements 3 on right hip and 0 left Hx of colonoscopy with polypectomy 2009, repeat 12/27/2022 with polyps, next in 5 years History of esophagogastroduodenoscopy (EGD) 2009, repeat 12/27/2022 no abnormality, bx done S/P cervical spinal fusion Status post surgery History of back surgery x6 different surgeries on the spine Family History Father Stroke Heart attack Brother Hypertension Sister Heart attack Social History Smoking and tobacco/nicotine status: current every day tobacco/nicotine user (chewing) smokeless tobacco Smokeless tobacco user: chewing tobacco Alcohol intake: former Substance/Drug Use: current Substance/Drug use frequency: other Other substance/drug use details: medical marijuana Caregiver/support person: No Lives independently: Yes Household members: none Marital status: Single Highest education level completed: Some College, No Degree service: No Current occupational status: retired and disabled Do you think of yourself as: Straight/Heterosexual Current gender identity: Male Physical Exam Const: COMMON NORMALS: no acute distress, average body habitus, patient orie nted x3, no limitations, healthy appearing, alert and well nourished GENERAL APPEARANCE: cooperative ORIENTATION/CONSCIOUSNESS: Yes awake, Yes oriented to person, Yes oriented to place and Yes oriented to time HENMT: COMMON NORMALS: normocephalic, atraumatic and TM's normal bilaterally HEAD & SCALP: normal to inspection, normocephalic and atraumatic; no Castro's sign, no hematoma and no raccoon eyes FACE & SINUS: normal facial exam TYMPANIC MEMBRANE: TM's normal bilaterally MOUTH: other (no intraoral injuries noted) Eye: COMMON NORMALS: Equal, round and reactive pupils present and EOMs intact bilaterally GENERAL EYE: appearance normal, both eyes and all related structures and normal light reflex PUPIL: Yes Equal, round and reactive pupils present DIRECT OPHTHALMOSCOPY: Yes normal light reflex Neck/C-Spine: GENERAL: Yes normal visual inspection CERVICAL SPINE: Yes Cervical spine tenderness, No step off deformity and Yes Paracervical muscle tenderness left OTHER: c-collar not removed for ROM testing Chest: COMMONS NORMALS: normal inspection of the chest and normal palpation of entire chest wall Resp: COMMON NORMALS: normal respiratory effort and clear to auscultation bilaterally AUSCULTATION: clear to auscultation bilaterally Cardio: COMMON NORMALS: regular rate and regular rhythm RATE: regular rate RHYTHM: regular rhythm GI: COMMON NORMALS: Normal to inspection, nondistended, normoactive bowel sounds present, Soft to palpation, non-tender, No hepatosplenomegaly present and no masses INSPECTION: Yes normal to inspection and No abdominal wall ecchymosis AUSCULTATION: Yes normoactive bowel sounds PALPATION: Yes Soft to palpation and Yes No hepatosplenomegaly present : COMMON NORMALS: Yes no CVA tenderness BLADDER/KIDNEY EXAM: Yes no CVA tenderness Back/Pelvis: COMMON NORMALS: no CVA tenderness and thoracic and lumbar spine normal to inspection THORACIC SPINE/UPPER BACK: No thoracic spinal tenderness, No paraspinal muscle tenderness and No paraspinal muscle spasm LUMBAR SPINE/LOWER BACK: Yes ROM limited, Yes lumbar spinal tenderness, No paraspinal muscle tenderness, Yes paraspinal muscle spasm, Yes straight leg raise positive right and Yes straight leg raise positive left PELVIS: Yes buttocks normal and No sciatic notch tenderness SACROILIAC JOINTS: Yes SI joints normal SACRUM: no tenderness COCCYX: no tenderness Extremity: COMMON NORMALS: normal to inspection, capillary refill normal, no joint enlargement, no clubbing, cyanosis or edema, no calf tenderness and no pedal edema GENERAL: Yes normal exam except as noted RIGHT LOWER EXTREMITY: Yes hip joint LEFT LOWER EXTREMITY: Yes hip joint OTHER: extremities are NV intact; no shortening or rotation noted to either leg; no other bony abnormalities noted; reports ROM of LEs causes low back pain Neuro: REZA COMA SCALE: document GCS findings Reza coma scale eye opening: Spontaneous Irene coma scale verbal response: Orientated Irene coma scale motor response: Obey commands Reza coma scale total score: 15 COMMON NORMALS: patient oriented x3, CN's II-XII intact bilaterally, moves all extremities, no focal motor deficits and no sensory deficits noted SENSORIUM/ORIENTATION: Yes alert, Yes oriented to person, Yes oriented to place and Yes oriented to time SPEECH: speech normal GAIT: Yes Unable to assess gait Skin: COMMON NORMALS: no rashes or lesions noted GENERAL SKIN EXAM: no rashes or lesions noted TRAUMA: no lacerations or abrasions Course Vital Signs: Vital signs: Vital Signs Pulse Rate 94 09/02/23 16:05 Respiratory Rate 17 09/02/23 17:43 Blood Pressure 170/112 09/02/23 16:05 Pulse Oximetry 95 09/02/23 17:43 Oxygen Delivery Me thod Room Air 09/02/23 16:05 MDM - Fall Lab Data Radiology Impressions Cervical Spine CT 09/02/23 16:09 IMPRESSION: 1. No acute bony abnormality.If symptoms persist, consider further evaluation with MRI. 2. Postsurgical and multilevel degenerative changes of the cervical spine as outlined above. Head CT 09/02/23 16:09 IMPRESSION: No acute intracranial abnormality. If symptoms persist, consider further evaluation with MRI. Hip/Pelvis X-Ray 09/02/23 16:09 IMPRESSION: No acute findings. Lumbar Spine CT 09/02/23 16:09 IMPRESSION: 1. No acute findings. 2. Osteoporosis noted 3. Intact fusion at L4-L5 4. Bulging discs at L2-L3 and L3-L4 All radiology interpretation(s) finalized by discharge Discharge Plan Discharge Patient Disposition: Home Clinical Impression: Closed head injury Qualifiers: Encounter type: initial encounter Qualified Code(s): S09.90XA - Unspecified injury of head, initial encounter Sprain of cervical neck Qualifiers: Encounter type: initial encounter Qualified Code(s): S13.9XXA - Sprain of joints and ligaments of unspecified parts of neck, initial encounter Contusion of lower back Qualifiers: Encounter type: initial encounter Qualified Code(s): S30.0XXA - Contusion of lower back and pelvis, initial encounter Fall Qualifiers: Encounter type: initial encounter Qualified Code(s): W19.XXXA - Unspecified fall, initial encounter Condition: Stable Prescriptions: No Action baclofen 20 mg tablet 20 mg PO BID Qty: 20 0RF baclofen 20 mg tablet 20 mg PO BID Qty: 20 0RF indomethacin 25 mg/5 mL suspension 25 mg PO TID Qty: 237 1RF Rx Instructions: take with food for 10 days, discontinue and can repeat for gout flareups omeprazole 40 mg capsule,delayed release(DR/EC) 40 mg PO QAM Qty: 90 1RF carbidopa-levodopa 25-250 mg tablet See Rx Instructions .ROUTE .COMPLEX Qty: 180 5RF Dose Instruction: take 1&1/2 TO TWO tablets EVERY 6 HOURS Rx Instructions: take 1&1/2 TO TWO tablets EVERY 6 HOURS potassium chloride 20 mEq packet 20 meq PO BID Qty: 10 0RF acetaminophen 500 mg Tablet 1,000 mg PO BID aspirin [Aspir-81] 81 mg Tablet,Delayed Release (Dr/Ec) 81 mg PO DAILY metoprolol tartrate 50 mg tablet 50 mg PO BID Discharge Orders: Discharge ED (Routine); Ordered 09/02/23 Ordered By: Juan Olea Referrals: Wali Moon MD [Primary Care Provider] - Discharge Diet: Usual diet Discharge Activity: Increase activity as tolerated Patient Instructions: Fall Prevention (ED), Pain Management, Post-Concussive Syndrome Activity Restrictions/Additional Instructions: Follow-up with your primary care provider this week for any further evaluation. Continue taking prescribed medications. Tylenol or ibuprofen for pain. Gentle range of motion as tolerated. Return with any new or worsening symptoms. Sign Out Sign Out Data: Patient Sign Out occurred on 09/02/23 at 17:05. Patient's care was discussed, and care was transferred from NADEEM Kebede to NADEEM Khalil. Coding Level of Care Code ED Electronic News Gathering Editor for Chg Fwd Documented by User: NADEEM Khalil 09/02/23 18:03 HPI - Fall General: Chief Complaint: Fall Stated Complaint: neck and back pain post fall Time Seen by Provider: 09/02/23 15:58 PFSH ED PFSH: Medical History Pre-diabetes TIA (transient ischemic attack) Fusion of lumbar spine Chewing tobacco nicotine dependence Age [age] (currently) Hypertension CAD (coronary artery disease) Anxiety and depression DDD (degenerative disc disease) Migraines Osteoarthritis Gout Parkinsons disease Surgical History History of total knee arthroplasty Left TKA x2 revision needed due to loosening of hardware, no history of infection Hx of bilateral hip replacements 3 on right hip and 0 left Hx of colonoscopy with polypectomy 2009, repeat 12/27/2022 with polyps, next in 5 years History of esophagogastroduodenoscopy (EGD) 2009, repeat 12/27/2022 no abnormality, bx done S/P cervical spinal fusion Status post surgery History of back surgery x6 different surgeries on the spine Family History Father Stroke Heart attack Brother Hypertension Sister Heart attack Social History Smoking and tobacco/nicotine status: current every day tobacco/nicotine user (chewing) smokeless tobacco Smokeless tobacco user: chewing tobacco Alcohol intake: former Substance/Drug Use: current Substance/Drug use frequency: other Other substance/drug use details: medical marijuana Caregiver/support person: No Lives independently: Yes Household members: none Marital status: Single Highest education level completed: Some College, No Degree service: No Current occupational status: retired and disabled Do you think of yourself as: Straight/Heterosexual Current gender identity: Male Physical Exam Neuro: REZA COMA SCALE: document GCS findings Reza coma scale total score: 15 Course Vital Signs: Vital signs: Vital Signs Pulse Rate 94 09/02/23 16:05 Respiratory Rate 17 09/02/23 17:43 Blood Pressure 170/112 09/02/23 16:05 Pulse Oximetry 95 09/02/23 17:43 Oxygen Delivery Ma thod Room Air 09/02/23 16:05 MDM - Fall Medical Decision Making This patient was transferred to sd at shift change. Patient reevaluated and states he tripped over his dog, injuring his head, neck, and low back. He states he has a history of multiple concussions and that he feels that he had 1 today. Images were ordered to evaluate his reported injuries. Cervical CT, head CT, lumbar spine CT, and hip/pelvis x-ray all negative for any acute findings. Patient initially given shot of IM morphine, but states this did nothing for his pain. He has many self-reported allergies to medications, and requests an IM shot of Dilaudid as he states this is the only thing that works. After recheck following shot of IM Dilaudid, he states he feels better and wants out of the c-collar. He also states he has had concussions before and he knows how to handle them. Patient be discharged home and encouraged to follow-up with primary care this week for any further evaluation. Return precautions given. Lab Data Radiology Impressions Cervical Spine CT 09/02/23 16:09 IMPRESSION: 1. No acute bony abnormality.If symptoms persist, consider further evaluation with MRI. 2. Postsurgical and multilevel degenerative changes of the cervical spine as outlined above. Head CT 09/02/23 16:09 IMPRESSION: No acute intracranial abnormality. If symptoms persist, consider further evaluation with MRI. Hip/Pelvis X-Ray 09/02/23 16:09 IMPRESSION: No acute findings. Lumbar Spine CT 09/02/23 16:09 IMPRESSION: 1. No acute findings. 2. Osteoporosis noted 3. Intact fusion at L4-L5 4. Bulging discs at L2-L3 and L3-L4 Discharge Plan Discharge Patient Disposition: Home Clinical Impression: Closed head injury Qualifiers: Encounter type: initial encounter Qualified Code(s): S09.90XA - Unspecified injury of head, initial encounter Sprain of cervical neck Qualifiers: Encounter type: initial encounter Qualified Code(s): S13.9XXA - Sprain of joints and ligaments of unspecified parts of neck, initial encounter Contusion of lower back Qualifiers: Encounter type: initial encounter Qualified Code(s): S30.0XXA - Contusion of lower back and pelvis, initial encounter Fall Qualifiers: Encounter type: initial encounter Qualified Code(s): W19.XXXA - Unspecified fall, initial encounter Condition: Stable Prescriptions: No Action baclofen 20 mg tablet 20 mg PO BID Qty: 20 0RF baclofen 20 mg tablet 20 mg PO BID Qty: 20 0RF indomethacin 25 mg/5 mL suspension 25 mg PO TID Qty: 237 1RF Rx Instructions: take with food for 10 days, discontinue and can repeat for gout flareups omeprazole 40 mg capsule,delayed release(DR/EC) 40 mg PO QAM Qty: 90 1RF carbidopa-levodopa 25-250 mg tablet See Rx Instructions .ROUTE .COMPLEX Qty: 180 5RF Dose Instruction: take 1&1/2 TO TWO tablets EVERY 6 HOURS Rx Instructions: take 1&1/2 TO TWO tablets EVERY 6 HOURS potassium chloride 20 mEq packet 20 meq PO BID Qty: 10 0RF acetaminophen 500 mg Tablet 1,000 mg PO BID aspirin [Aspir-81] 81 mg Tablet,Delayed Release (Dr/Ec) 81 mg PO DAILY metoprolol tartrate 50 mg tablet 50 mg PO BID Discharge Orders: Discharge ED (Routine); Ordered 09/02/23 Ordered By: Juan Olea Referrals: Wali Moon MD [Primary Care Provider] - Discharge Diet: Usual diet Discharge Activity: Increase activity as tolerated Patient Instructions: Fall Prevention (ED), Pain Management, Post-Concussive Syndrome Activity Restrictions/Additional Instructions: Follow-up with your primary care provider this week for any further evaluation. Continue taking prescribed medications. Tylenol or ibuprofen for pain. Gentle range of motion as tolerated. Return with any new or worsening symptoms. Sign Out Sign Out Data: Patient Sign Out occurred on 09/02/23 at 17:05. Patient's care was discussed, and care was transferred from NADEEM Kebede to NADEEM Khalil. Coding Level of Care Code ED Electronic News Gathering Editor for Chg Fwd Documented by User: Gavin Blackman DO 09/03/23 05:47 HPI - Fall General: Chief Complaint: Fall Stated Complaint: neck and back pain post fall Time Seen by Provider: 09/02/23 15:58 PFSH ED PFSH: Medical History Pre-diabetes TIA (transient ischemic attack) Fusion of lumbar spine Chewing tobacco nicotine dependence Age [age] (currently) Hypertension CAD (coronary artery disease) Anxiety and depression DDD (degenerative disc disease) Migraines Osteoarthritis Gout Parkinsons disease Surgical History History of total knee arthroplasty Left TKA x2 revision needed due to loosening of hardware, no history of infection Hx of bilateral hip replacements 3 on right hip and 0 left Hx of colonoscopy with polypectomy 2009, repeat 12/27/2022 with polyps, next in 5 years History of esophagogastroduodenoscopy (EGD) 2009, repeat 12/27/2022 no abnormality, bx done S/P cervical spinal fusion Status post surgery History of back surgery x6 different surgeries on the spine Family History Father Stroke Heart attack Brother Hypertension Sister Heart attack Social History Smoking and tobacco/nicotine status: current every day tobacco/nicotine user (chewing) smokeless tobacco Smokeless tobacco user: chewing tobacco Alcohol intake: former Substance/Drug Use: current Substance/Drug use frequency: other Other substance/drug use details: medical marijuana Caregiver/support person: No Lives independently: Yes Household members: none Marital status: Single Highest education level completed: Some College, No Degree service: No Current occupational status: retired and disabled Do you think of yourself as: Straight/Heterosexual Current gender identity: Male Physical Exam Neuro: REZA COMA SCALE: document GCS findings Reza coma scale total score: 15 Course Vital Signs: Vital signs: Vital Signs Pulse Rate 94 09/02/23 16:05 Respiratory Rate 17 09/02/23 17:43 Blood Pressure 170/112 09/02/23 16:05 Pulse Oximetry 95 09/02/23 17:43 Oxygen Delivery Ma thod Room Air 09/02/23 16:05 MDM - Fall Medical Decision Making This patient was transferred to sd at shift change. Patient reevaluated and states he tripped over his dog, injuring his head, neck, and low back. He states he has a history of multiple concussions and that he feels that he had 1 today. Images were ordered to evaluate his reported injuries. Cervical CT, head CT, lumbar spine CT, and hip/pelvis x-ray all negative for any acute findings. Patient initially given shot of IM morphine, but states this did nothing for his pain. He has many self-reported allergies to medications, and requests an IM shot of Dilaudid as he states this is the only thing that works. After recheck following shot of DOMINIK Heart, he states he feels better and wants out of the c-collar. He also states he has had concussions before and he knows how to handle them. Patient be discharged home and encouraged to follow-up with primary care this week for any further evaluation. Return precautions given. Chart reviewed Lab Data Radiology Impressions Cervical Spine CT 09/02/23 16:09 IMPRESSION: 1. No acute bony abnormality.If symptoms persist, consider further evaluation with MRI. 2. Postsurgical and multilevel degenerative changes of the cervical spine as outlined above. Head CT 09/02/23 16:09 IMPRESSION: No acute intracranial abnormality. If symptoms persist, consider further evaluation with MRI. Hip/Pelvis X-Ray 09/02/23 16:09 IMPRESSION: No acute findings. Lumbar Spine CT 09/02/23 16:09 IMPRESSION: 1. No acute findings. 2. Osteoporosis noted 3. Intact fusion at L4-L5 4. Bulging discs at L2-L3 and L3-L4 Discharge Plan Discharge Patient Disposition: Home Clinical Impression: Closed head injury Qualifiers: Encounter type: initial encounter Qualified Code(s): S09.90XA - Unspecified injury of head, initial encounter Sprain of cervical neck Qualifiers: Encounter type: initial encounter Qualified Code(s): S13.9XXA - Sprain of joints and ligaments of unspecified parts of neck, initial encounter Contusion of lower back Qualifiers: Encounter type: initial encounter Qualified Code(s): S30.0XXA - Contusion of lower back and pelvis, initial encounter Fall Qualifiers: Encounter type: initial encounter Qualified Code(s): W19.XXXA - Unspecified fall, initial encounter Condition: Stable Prescriptions: No Action baclofen 20 mg tablet 20 mg PO BID Qty: 20 0RF baclofen 20 mg tablet 20 mg PO BID Qty: 20 0RF indomethacin 25 mg/5 mL suspension 25 mg PO TID Qty: 237 1RF Rx Instructions: take with food for 10 days, discontinue and can repeat for gout flareups omeprazole 40 mg capsule,delayed release(DR/EC) 40 mg PO QAM Qty: 90 1RF carbidopa-levodopa 25-250 mg tablet See Rx Instructions .ROUTE .COMPLEX Qty: 180 5RF Dose Instruction: take 1&1/2 TO TWO tablets EVERY 6 HOURS Rx Instructions: take 1&1/2 TO TWO tablets EVERY 6 HOURS potassium chloride 20 mEq packet 20 meq PO BID Qty: 10 0RF acetaminophen 500 mg Tablet 1,000 mg PO BID aspirin [Aspir-81] 81 mg Tablet,Delayed Release (Dr/Ec) 81 mg PO DAILY metoprolol tartrate 50 mg tablet 50 mg PO BID Discharge Orders: Discharge ED (Routine); Ordered 09/02/23 Ordered By: Juan Olea Referrals: Wali Moon MD [Primary Care Provider] - Discharge Diet: Usual diet Discharge Activity: Increase activity as tolerated Patient Instructions: Fall Prevention (ED), Pain Management, Post-Concussive Syndrome Activity Restrictions/Additional Instructions: Follow-up with your primary care provider this week for any further evaluation. Continue taking prescribed medications. Tylenol or ibuprofen for pain. Gentle range of motion as tolerated. Return with any new or worsening symptoms. Sign Out Sign Out Data: Patient Sign Out occurred on 09/02/23 at 17:05. Patient's care was discussed, and care was transferred from NADEEM Kebede to NADEEM Khalil. Coding Level of Care Code ED Electronic News Gathering Editor for Mu Pressley
[2023-09-02 16:05] VITALS: BP 170/112; PULSE 94; RESP 16; O2SAT 94
--- NOTE | 2023-09-02 16:09 | CTR_ITS ---
PROCEDURE INFORMATION: Exam: CT Head Without Contrast Exam date and time: 09/02/2023 4:45 PM Age: 58 years old Clinical indication: Injury or trauma; Other: Fall, hit back of head, +loc; Additional info: Trauma/fall TECHNIQUE: Imaging protocol: Computed tomography of the head without contrast. Radiation optimization: All CT scans at this facility use at least one of these dose optimization techniques: automated exposure control; mA and/or kV adjustment per patient size (includes targeted exams where dose is matched to clinical indication); or iterative reconstruction. COMPARISON: CT head wo con* [id number] 08/12/2023 8:50 PM RADIATION DOSE METRICS: Total DLP (mGy-cm): 917.3 FINDINGS: Brain: No acute intracranial hemorrhage. No confluent lobar infarct. No mass effect. Cerebral ventricles: The ventricles and sulci are normal in size and shape for the patient's stated age. Paranasal sinuses: Visualized sinuses are unremarkable. No fluid levels. Mastoid air cells: Visualized mastoid air cells are well aerated. Bones/joints: Unremarkable. No acute fracture. Soft tissues: Visualized soft tissues are unremarkable. CT/CT head wo con* [id number] IMPRESSION: No acute intracranial abnormality. If symptoms persist, consider further evaluation with MRI.
--- NOTE | 2023-09-02 16:09 | CTR_ITS ---
PROCEDURE INFORMATION: Exam: CT Lumbar Spine Without Contrast Exam date and time: 09/02/2023 4:53 PM Age: 58 years old Clinical indication: Injury or trauma; Blunt trauma (contusions or hematomas); Injury details: --fall, hit back of head. + loc; Prior surgery; Surgery date: 6+ months; Surgery type: Back, cspine; Additional info: Fall/trauma TECHNIQUE: Imaging protocol: Computed tomography of the lumbar spine without contrast. Radiation optimization: All CT scans at this facility use at least one of these dose optimization techniques: automated exposure control; mA and/or kV adjustment per patient size (includes targeted exams where dose is matched to clinical indication); or iterative reconstruction. COMPARISON: CT lumbar spine wo con* [id number] 03/03/2023 12:47 AM RADIATION DOSE METRICS: Total DLP (mGy-cm): 859.41 FINDINGS: Bones/joints: The bony structures demonstrate diffuse osteopenia. There has been posterior surgical fusion at the L4-L5 level. Mild disc bulges are noted at the L2-L3 and L3-L4 levels. No acute fracture or subluxation noted. Soft tissues: Unremarkable. CT/CT lumbar spine wo con* [id number] IMPRESSION: 1. No acute findings. 2. Osteoporosis noted 3. Intact fusion at L4-L5 4. Bulging discs at L2-L3 and L3-L4
--- NOTE | 2023-09-02 16:09 | CTR_ITS ---
PROCEDURE INFORMATION: Exam: CT Cervical Spine Without Contrast Exam date and time: 09/02/2023 4:45 PM Age: 58 years old Clinical indication: Injury or trauma; Blunt trauma; Injury details: Fall, hit back of head. + loc; Patient HX: Back, cspine; Additional info: Fall/trauma TECHNIQUE: Imaging protocol: Computed tomography of the cervical spine without contrast. Radiation optimization: All CT scans at this facility use at least one of these dose optimization techniques: automated exposure control; mA and/or kV adjustment per patient size (includes targeted exams where dose is matched to clinical indication); or iterative reconstruction. COMPARISON: Every time CT cervical spin wo con* [id number] 03/03/2023 12:43 AM RADIATION DOSE METRICS: Total DLP (mGy-cm): 1528.08 FINDINGS: Bones/joints: The cervical vertebral bodies are normally aligned. The vertebral body heights are maintained. There is bony fusion of the C4 , C5 , C6 and C7 vertebral bodies similar to prior exam. Redemonstration of anterior hardware fixation at C6-C7 with plate and screws. Redemonstration of posterior spinal hardware fixation spanning C4 through T1. The hardware creates artifact limiting evaluation of the immediate adjacent bone and soft tissues. C2-C3: Broad-based disc osteophyte complex with mild central canal stenosis. Mild bilateral neuroforaminal narrowing secondary to uncovertebral and facet hypertrophy. C3-C4: Broad-based disc osteophyte complex with mild central canal stenosis. The bilateral neuroforamina are patent. C4-C5: Broad-based disc osteophyte complex with mild central canal stenosis. The bilateral neuroforamina are patent. C5-C6: No significant disc bulge or herniation. No severe spinal canal stenosis. No significant neural foraminal narrowing. C6-C7: No significant central canal stenosis. Left pedicle screw traverses the inferior aspect of the left neural foramen unchanged from prior exam. C7-T1: No significant disc bulge or herniation. No severe spinal canal stenosis. No significant neural foraminal narrowing. Lungs: Bilateral upper lobe atelectasis Soft tissues: No acute soft tissue findings. CT/CT cervical spin wo con* [id number] IMPRESSION: 1. No acute bony abnormality.If symptoms persist, consider further evaluation with MRI. 2. Postsurgical and multilevel degenerative changes of the cervical spine as outlined above.
--- NOTE | 2023-09-02 16:09 | XRR_ITS ---
PROCEDURE INFORMATION: Exam: XR Bilateral Hips Exam date and time: 09/02/2023 4:26 PM Age: 58 years old Clinical indication: Injury or trauma; Fall; Blunt trauma (contusions or hematomas); Bilateral; Hip; Additional info: Fall/trauma TECHNIQUE: Imaging protocol: Radiologic exam of the bilateral hips. Views: 2 views of hips with pelvis when performed. COMPARISON: CR XR hip BI 2V wo/w pel [id number] 05/31/2023 12:57 AM FINDINGS: Bones/joints: A right hip prosthesis is well seated and well aligned. I see no bony fracture. Soft tissues: Unremarkable. XR/XR hip BI 3-4V wo/w pel [id number] IMPRESSION: No acute findings.
[2023-09-02 16:34] VITALS: RESP 18; O2SAT 95
[2023-09-02] MEDS: morphine 4 mg/mL SDV 1 mL IM (16:34)
[2023-09-02 17:43] VITALS: RESP 17; O2SAT 95
[2023-09-02] MEDS: HYDROmorphone 1 mg/mL INJ 1 mL IM (17:43)
== END 2023-09-02 18:16 | disposition home or self-care (01) ==
PROVIDERS: Emergency Provider Physician Assistant; PCP Family Medicine Adult Medicine
DX: S09.8XXA Other specified injuries of head, initial encounter (principal); S13.9XXA Sprain of joints and ligaments of unspecified parts of neck, initial encounter; S30.0XXA Contusion of lower back and pelvis, initial encounter; Z79.82 Long term (current) use of aspirin; F17.220 Nicotine dependence, chewing tobacco, uncomplicated; Z86.73 Personal history of transient ischemic attack (TIA), and cerebral infarction without residual deficits; I10 Essential (primary) hypertension; I25.10 Atherosclerotic heart disease of native coronary artery without angina pectoris; G20.A1 Parkinson's disease without dyskinesia, without mention of fluctuations; W01.0XXA Fall on same level from slipping, tripping and stumbling without subsequent striking against object, initial encounter
CPT/HCPCS: 70450; 72125; 72131; 73522; 96372; 99284; J1170; J2270

== ENCOUNTER → 2023-09-04 09:50 | Outpatient (BNVA) | payer MEDICARE, MEDICAID, SELFPAY | PROVIDERS: PCP Family Medicine Adult Medicine; Visit Provider Podiatrist Foot & Ankle Surgery | DX: M10.472 Other secondary gout, left ankle and foot; M20.32 Hallux varus (acquired), left foot; M20.12 Hallux valgus (acquired), left foot | CPT/HCPCS: 73630; 99214 ==

== ENCOUNTER 2023-10-04 06:45 | Day surgery (SDC) | payer MEDICARE, MEDICAID, SELFPAY ==
[2023-10-04] VITALS (15 sets, daily range): BP systolic 86–147; BP diastolic 55–93; PULSE 67–85; RESP 12–17; TEMP 36.1–36.6; O2SAT 94–99; BMI 29.1
[2023-10-04] MEDS: sodium chloride 0.9% 1,000 ML 30 ML IV (07:15)
--- NOTE | 2023-10-04 07:45 | ANES.PREANE2 ---
Pre-Anesthetic Assessment Height/Weight: Height 1.65 m Weight 79.379 kg Temp Pulse Resp BP Pulse Ox O2 Del Method 97.3 F L 85 17 147/87 96 Room Air 10/04/23 07:05 10/04/23 07:05 10/04/23 07:05 10/04/23 07:05 10/04/23 07:05 10/04/23 07:05 Preop Diagnosis: Hallux malleus and tendon contracture left foot. Gout left foot. Operation Date: 10/04/23 08:30 Proposed Procedures p Hallux Interphalangeal Joint Fusion(Left) - Jose Elias Sanchez DPM s Hallucis Extensor Longus Tendon Transfer(Left) - Jose Elias Sanchez DPM Was Beta Todd taken within 24 hours: Yes Last intake: Intake Last Liquid Date 10/03/23 Last Liquid Time 17:00 Last Solid Date 10/03/23 Last Solid Time 17:00 Social chews, occasional cigar pack(s) per day recreational marijuana, last 5 days ago Exam alert, oriented x 3, clear to auscultation bilaterally and regular rate & rhythm Airway Submandibular: within normal limits Cervical ROM: within normal limits CV/HEM Hypertension hx of requiring dialysis in past from sepsis/abx treatment. Now has potassium wasting requriing oral replacement Hepatic None reported GI well controlled reflux with no nighttime symptoms Anesthetic Plan ASA status: 3 Anesthesia: MAC Medications/Allergies Home Medications Medication Instructions Recorded Confirmed Last Taken Type metoprolol tartrate 50 mg tablet 50 mg PO BID blood pressure 02/03/23 10/03/23 10/04/23 06:00 History omeprazole 40 mg capsule,delayed 40 mg PO QAM #90 caps 07/17/23 10/03/23 10/03/23 Rx release indomethacin 25 mg/5 mL oral 25 mg (5 mL) PO TID gout #237 mL 08/16/23 10/03/23 Unknown Rx suspension potassium chloride 20 mEq oral 20 meq PO BID potassium #100 ea 09/18/23 10/03/23 10/03/23 Rx packet Tylenol Extended Release 1,000 mg PO BID 10/03/23 10/03/23 10/03/23 History carbidopa 25 mg-levodopa 250 mg 2 tab PO DAILY 10/03/23 10/03/23 10/04/23 History tablet Allergies Allergy/AdvReac Type Severity Reaction Status Date / Time allopurinol Allergy Unknown Unknown Verified 10/03/23 11:00 ketorolac [From Toradol] Allergy Unknown Unknown Verified 10/03/23 11:00 orphenadrine [From Norflex] Allergy Unknown Unknown Verified 10/03/23 11:00 promethazine [From Phenergan] Allergy Unknown Unknown Verified 10/03/23 11:00 tramadol Allergy Unknown Unknown Verified 10/03/23 11:00 hydrocodone Allergy Unknown Verified 10/03/23 11:00 methadone Allergy Unknown Verified 10/03/23 11:00 oxycodone Allergy Unknown Verified 10/03/23 11:00 narcotics Allergy Severe Unknown Uncoded 10/03/23 11:00 Current Medications Generic Name Dose Route Start Last Admin Trade Name Freq PRN Reason Stop Dose Admin Sodium Chloride 1,000 mls @ 30 mls/hr 10/04/23 07:00 10/04/23 07:15 Sodium Chloride 0.9% IV 10/05/23 06:59 30 mls/hr .Q24H JB Administration PFSH Anesthesia Medical History Pre-diabetes TIA (transient ischemic attack) Fusion of lumbar spine Chewing tobacco nicotine dependence Age [age] (currently) Hypertension CAD (coronary artery disease) Anxiety and depression DDD (degenerative disc disease) Migraines Osteoarthritis Gout Parkinsons disease Surgical History History of total knee arthroplasty Left TKA x2 revision needed due to loosening of hardware, no history of infection Hx of bilateral hip replacements 3 on right hip and 0 left Hx of colonoscopy with polypectomy 2009, repeat 12/27/2022 with polyps, next in 5 years History of esophagogastroduodenoscopy (EGD) 2009, repeat 12/27/2022 no abnormality, bx done S/P cervical spinal fusion Status post surgery History of back surgery x6 different surgeries on the spine Family History Father Stroke Heart attack Brother Hypertension Sister Heart attack Social History Smoking and tobacco/nicotine status: current every day tobacco/nicotine user (chewing) smokeless tobacco Smokeless tobacco user: chewing tobacco Alcohol intake: former Substance/Drug Use: current Substance/Drug use frequency: other Other substance/drug use details: medical marijuana Caregiver/support person: No Lives independently: Yes Household members: none Marital status: Single Highest education level completed: Some College, No Degree service: No Current occupational status: retired and disabled Do you think of yourself as: Straight/Heterosexual Current gender identity: Male Data Anesthesia Cardiac Studies: Sestamibi Stress Test (Cardiology) 04/05/22 Holter Monitor 07/06/22
--- NOTE | 2023-10-04 08:54 | W.PM.OPSUD ---
Surgery/Procedure H&P Update DATE OF PROCEDURE: October 04, 2023 DATE H&P PERFORMED: 09/04/23 H&P UPDATE INFORMATION: I have reviewed H&P completed within last 30 days, I have examined patient prior to procedure, No changes to prior documentation and H&P is in [facility] EMR on date indicated PREOP DIAGNOSIS: Hallux malleus and tendon contracture left foot. Gout left foot. PLANNED PROCEDURE: Operation Date: 10/04/23 08:30 Proposed Procedures p Hallux Interphalangeal Joint Fusion(Left) - Jose Elias Sanchez DPM s Hallucis Extensor Longus Tendon Transfer(Left) - Jose Elias Sanchez DPM
[2023-10-04] MEDS: ceFAZolin 2,000 MG in sodium chloride 0.9% (plus) 50 ML 100 MG IV (09:11)
[2023-10-04] MEDS: BUPivacaine liposome 13.3 mg/mL SDV 10 mL 266 MG INJECTION (09:41)
[2023-10-04] MEDS: BUPivacaine 0.5% INJ 30 mL INJECTION (09:41)
--- NOTE | 2023-10-04 10:11 | W.PM.BPON ---
Date of Procedure: 08/30/23 Surgeon: Jose Elias Sanchez DPM [employer] Professional(s): Johnson HAQ Procedure(s) performed: Left hallux interphalangeal joint arthrodesis and left foot deep tendon transfer. Findings of the procedure(s): Gouty tophi left hallux Estimated blood loss: 2 mL Specimen(s) removed: No specimens Post-operative diagnosis: Arthrosis of the left hallux interphalangeal joint. Gouty tophi left great toe. Tendon contracture left foot. No complications with anesthesia or surgery.
--- NOTE | 2023-10-04 10:12 | P.OP_ITS ---
Operative Report Date of procedure: October 04, 2023 Pre-op diagnosis: Acquired hallux malleus left foot M20.32. Gouty arthritis of toe M10.9. Hallux valgus left foot M20.12 Post-op diagnosis: Acquired hallux malleus left foot M20.32. Gouty arthritis of toe M10.9. Hallux valgus left foot M20.12 Post-op findings: Tophaceous gout left hallux interphalangeal joint Procedure done: 1) hallux interphalangeal joint fusion. CPT code 86076 2) extensor hallucis longus tendon transfer. CPT code 69271 Implants: [place] 4.0 mm screw, cannulated, partially-threaded, headed [place] titanium bone anchor 3-0 Vicryl 4-0 Vicryl 4-0 nylon Specimens removed/disposition: None Pathology: No pathology Surgeon: Jose Elias Sanchez DPM Rubber Splicer: Johnson HAQ Estimated blood loss: 5 37 IV fluids: 0 Urine output: 0 Complications: No complications Brief History: Patient wishing to discuss surgical intervention, running excision of gouty tophi, discussed arthrosis at the hallux interphalangeal joint, this is the joint that is suffering from gouty arthrosis, recommended hallux interphalangeal joint fusion with extensor hallucis longus tendon transfer/Robles tenosuspension. I reviewed at length with the patient, the risks, potential complications, benefits, alternatives, expectations, and typical outcomes associated with the surgery. The risks and potential complications were explained in detail, including but not limited to infection, wound dehiscence or soft tissue complications, bleeding and hematoma, chronic edema, neuritis or nerve damage producing numbness or chronic pain, CRPS, failure to relieve pain or worsening pain, thick / painful / unsightly scar, limited motion / stiffness, malposition, delayed union, malunion, or nonunion, fracture, reaction to implants, anesthetic complications, venous thromboembolism, and deformity recurrence. I discussed the notion of no regrets with the patient as it pertains to complications and outcomes. The patient seemed to understand the nature of the proposed care and required convalescence. They asked appropriate questions, answered to their satisfaction. They are aware no guarantees can be made as to a satisfactory outcome and they understand there may be other possible unforeseen complications or outcomes not listed here that will be treated accordingly if they arise. There were no written or implied guarantees given to the patient. They gave informed consent to proceed. Procedure: Under mild sedation the patient was brought to the operating room and remained on the gurney in supine position. A timeout was performed. Anesthesia was then administered by the anesthesia service. Local anesthesia was injected by myself consisting of 20 cc of 0.5% Marcaine plain and a left male block fashion. An additional 20 cc of Exparel was infiltrated subcutaneously in a grid like fashion to the left medial forefoot. Well-padded pneumatic tourniquet applied to the left ankle. The left lower extremity was scrubbed, prepped and draped utilizing normal aseptic technique. Left foot and ankle were exanguinated with an Esmarch bandage and tourniquet inflated to 250 mmHg. Attention was directed to the dorsal aspect of the left hallux where a linear longitudinal incision was made directly over the left hallux interphalangeal joint. Impressive osseous and soft tissue mass over the dorsum of the left hallux interphalangeal joint was appreciated. Upon making incision through skin gouty tophi was encountered and this was evacuated utilizing curettage, pickups and a 15 blade followed by saline flush. Dissection was carried down to the extensor hallucis longus tendon which was transected at the level of the hallux interphalangeal joint of the left foot followed by arthroplasty of the left hallux interphalangeal joint with sagittal saw resecting the base of the distal phalanx and head of the proximal phalanx perpendicular to the longitudinal axis. Subchondral drilling was performed to prep the hallux interphalangeal joint arthrodesis, all remaining gouty tophi was evacuated from the operative site followed by saline flush. Hallux interphalangeal joint arthrodesis site was then fixated utilizing a [place] 4.0 millimeter screw with excellent bony apposition and compression noted. The screw did not violate the metatarsal phalangeal joint this was confirmed with intraoperative C arm with AP, oblique and lateral views. The incision was then irrigated with saline solution, joint capsule reapproximated with 3-0 Vicryl, subcutaneous tissue with 4-0 Vicryl and skin with 4-0 nylon. Attention was then directed to the dorsal aspect of the first metatarsal distal diaphysis where directly over the extensor hallucis longus tendon incision was made through skin with dissection carried down to periosteum at the central portion of the diaphyseal metaphyseal junction distally of the left first metatarsal. A [place] titanium bone anchor was secured centrally and the extensor hallucis longus tendon was rerouted and secured to the dorsal distal aspect of the first metatarsal with excellent bony apposition and pullout strength. The incision was irrigated with saline solution and closed in a layered fashion with subcutaneous tissue reapproximated with 4-0 Vicryl and skin with 4-0 nylon. Incision sites were dressed with Adaptic, sterile 4 x 4's, Kerlix and Paulino wrap followed by application of a cam boot to the left lower extremity. Tourniquet was deflated and a prompt hyperemic response was noted to the distal digits of the left foot. Patient tolerated the procedure and anesthesia well and was woo sferred to the PACU with vital signs stable and vascular status intact. Following a period of postoperative monitoring he will be discharged home. Declined pain medication, states that he has recovered from a substance abuse history and states that he will prefer to not take pain medications for this reason. He is to elevate his foot, keep the surgical dressings clean, dry and intact until a scheduled follow-up visit. He was given at home care instructions, scheduled follow-up and my cell phone number to contact with any postoperative questions or concerns.
--- NOTE | 2023-10-04 12:19 | SUR.PHASEII ---
Patient was ready for DC at 1145. Gretchen got her to pick him up at 1219
--- NOTE | 2023-10-04 12:31 | ANE.PACU2 ---
Inpatient post-anesthesia follow up: Vital signs: Temperature 97.8 F Pulse Rate 67 Respiratory Rate 17 Blood Pressure 122/91 Pulse Oximetry 99 Oxygen Delivery Me thod Room Air Oxygen Flow Rate Fraction of Inspir ed Oxygen Hydration adequate: Yes Nausea and vomiting: No Mental status: Baseline Additional Comments: prolonged wake up from propofol, otherwise no apparent anesthetic complications noted.
== END 2023-10-04 12:19 | disposition home or self-care (01) ==
PROVIDERS: PCP Family Medicine Adult Medicine; Visit Provider Podiatrist Foot & Ankle Surgery
PROC: (CPT 28755; principal; 2023-10-04 08:20)
PROC: (CPT 28760; 2023-10-04 08:20)
DX: M20.32 Hallux varus (acquired), left foot (principal); M10.9 Gout, unspecified; M20.12 Hallux valgus (acquired), left foot; F17.220 Nicotine dependence, chewing tobacco, uncomplicated; I10 Essential (primary) hypertension; R73.03 Prediabetes; Z86.73 Personal history of transient ischemic attack (TIA), and cerebral infarction without residual deficits; Z98.1 Arthrodesis status; I25.10 Atherosclerotic heart disease of native coronary artery without angina pectoris; M19.90 Unspecified osteoarthritis, unspecified site; G20.A1 Parkinson's disease without dyskinesia, without mention of fluctuations
CPT/HCPCS: 28760; C1713; C9290; J0690; J2704; J3490; J7030

== ENCOUNTER 2023-10-07 23:49 | Emergency (ER) | payer MEDICARE, MEDICAID, SELFPAY ==
[2023-10-07 23:50] VITALS: BP 140/97; PULSE 75; RESP 18; TEMP 36.6; O2SAT 91; BMI 29.1
[2023-10-08 00:45] LABS: Basophils % 0.4 %; Eosinophils # 0.1 10^3/uL (0.0-0.8); Eosinophils % 1.2 %; Hematocrit 51.7 % (37-53); Lymphocytes # 1.8 10^3/uL (0.8-4.8); Lymphocytes % 19.2 %; Mean Corpuscular HGB Conc 33.3 g/dL (30-55); Mean Corpuscular Hemoglobin 28.5 pg (27-33); Mean Corpuscular Volume 85.6 fl (82-101); Mean Platelet Volume 9.2 fL (7.4-10.4); Monocytes # 0.4 10^3/uL (0.2-0.9); Monocytes % 4.3 %; Neutrophils # 6.86 10^3/uL (1.8-7.7); Neutrophils % 74.7 %; Nucleated Red Blood Cells % 0 %; Platelet Count 262 10^3/cmm (157-399); Red Blood Count 6.04 10^6/uL (3.85-5.65); Red Cell Distribution Width 14.4 % (12.1-15.1)
--- NOTE | 2023-10-08 00:48 | XRR_ITS ---
PROCEDURE INFORMATION: Exam: XR Chest Exam date and time: 10/08/2023 12:56 AM Age: 58 years old Clinical indication: Angina; Additional info: HTN TECHNIQUE: Imaging protocol: Radiologic exam of the chest. Views: 1 view. COMPARISON: CT angio chest PE protcl [id number] 04/13/2023 7:12 AM FINDINGS: Tubes, catheters and devices: Surgical changes of ACDF and posterior instrumentation of the visualized lower cervical spine. Lungs: Unremarkable. No consolidation. Pleural spaces: Unremarkable. No pleural effusion. No pneumothorax. Heart/Mediastinum: Unremarkable. No cardiomegaly. Bones/joints: Moderate degenerative disease of bilateral acromioclavicular joints. XR/XR chest 1V portable [id number] IMPRESSION: No acute cardiopulmonary process.
--- NOTE | 2023-10-08 00:49 | ED_ITS ---
HPI - Abdominal Pain 2 General: Chief Complaint: Abdominal Pain Stated Complaint: abd pain Time Seen by Provider: 10/08/23 00:43 History of Present Illness: Patient presents to the ER with complaints of nausea vomiting abdominal pain headaches, chest pain when he takes a big deep breath overall body aches, he says this all started on Saturday. He did have surgery on his foot that same day and they also sprayed his apartment complex for bugs and black mold. He thinks he may have been exposed to the spray and that may have started all this. Review of Systems 2 General: Reports: 10 or more systems reviewed and unremarkable except in HPI and below PFSH ED 2 PFSH: Medical History Pre-diabetes TIA (transient ischemic attack) Fusion of lumbar spine Chewing tobacco nicotine dependence Age [age] (currently) Hypertension CAD (coronary artery disease) Anxiety and depression DDD (degenerative disc disease) Migraines Osteoarthritis Gout Parkinsons disease Surgical History History of total knee arthroplasty Left TKA x2 revision needed due to loosening of hardware, no history of infection Hx of bilateral hip replacements 3 on right hip and 0 left Hx of colonoscopy with polypectomy 2009, repeat 12/27/2022 with polyps, next in 5 years History of esophagogastroduodenoscopy (EGD) 2009, repeat 12/27/2022 no abnormality, bx done S/P cervical spinal fusion Status post surgery History of back surgery x6 different surgeries on the spine Family History Father Stroke Heart attack Brother Hypertension Sister Heart attack Social History Smoking and tobacco/nicotine status: current every day tobacco/nicotine user (chewing) smokeless tobacco Smokeless tobacco user: chewing tobacco Alcohol intake: former Substance/Drug Use: current Substance/Drug use frequency: other Other substance/drug use details: medical marijuana Caregiver/support person: No Lives independently: Yes Household members: none Marital status: Single Highest education level completed: Some College, No Degree service: No Current occupational status: retired and disabled Do you think of yourself as: Straight/Heterosexual Current gender identity: Male Physical Exam 2 Const: COMMON NORMALS: no acute distress, average body habitus, patient oriented x3, no limitations, healthy appearing, alert and well nourished HENMT: COMMON NORMALS: normocephalic, atraumatic, hearing grossly normal bilaterally, external ears normal, Normal external nose present, moist oral mucous membranes and oropharynx normal HEAD & SCALP: normocephalic and atraumatic NOSE: Normal external nose present EXTERNAL EAR: Yes external ears normal Eye: COMMON NORMALS: Equal, round and reactive pupils present, EOMs intact bilaterally, conjunctivae normal and no scleral icterus CONJUNCTIVA: Yes conjunctivae normal PUPIL: Yes Equal, round and reactive pupils present Neck/C-Spine: COMMON NORMALS: no JVD Chest: COMMONS NORMALS: normal inspection of the chest and normal palpation of entire chest wall Resp: COMMON NORMALS: normal respiratory effort, No retractions, No use of accessory muscles and clear to auscultation bilaterally AUSCULTATION: clear to auscultation bilaterally Cardio: COMMON NORMALS: no JVD, regular rate, regular rhythm, S1 normal heart sound present, S2 normal heart sound present, No gallops present (Cardio), No clicks present (Cardio), No murmurs present (Cardio) and No rub (Cardio) R ATE: regular rate RHYTHM: regular rhythm HEART SOUNDS: S1 normal heart sound present and S2 normal heart sound present GI: COMMON NORMALS: Normal to inspection, nondistended, normoactive bowel sounds present, Soft to palpation, non-tender, No hepatosplenomegaly present and no masses PALPATION: Yes Soft to palpation and Yes No hepatosplenomegaly present Neuro: COMMON NORMALS: patient oriented x3 SENSORIUM/ORIENTATION: Yes alert Course 2 Vital Signs: Vital signs: Vital Signs Temperature 97.9 F 10/07/23 23:50 Pulse Rate 88 10/08/23 01:34 Respiratory Rate 18 10/07/23 23:50 Blood Pressure 140/98 10/08/23 01:34 Pulse Oximetry 96 10/08/23 01:34 Oxygen Delivery Me thod Room Air 10/07/23 23:50 MDM - Abdominal Pain Medical Decision Making Patient physical exam as well as lab work performed in ER all of which was essentially unremarkable. Patient healed almost continuously the entire time he was there and had nursing do this and do that for him. Patient would not allow us to close the door. Patient kept demanding pain medicine and refused Tylenol. Per his chart he is allergic to all narcotics. But this is what he was wanting. Patient then eventually said he wanted to be discharged while we were waiting for his lab work to come back. Patient will be discharged. Differential Diagnosis Likely abdominal pain; Unlikely acute appendicitis, calculus of kidney, constipation, diverticulitis, endometriosis, gastroenteritis, pancreatitis or small bowel obstruction Medical Records I reviewed the patient's medical records. Lab Data 10/08/23 00:35 10/08/23 00:35 Labs/Radiology: Laboratory Results WBC 9.20 10^3/uL (3.29-11.43) 10/08/23 00:35 RBC 6.04 10^6/uL (3.85-5.65) H 10/08/23 00:35 Hgb 17.20 g/dL (11.27-16.99) H 10/08/23 00:35 Hct 51.7 % (37-53) 10/08/23 00:35 MCV 85.6 fl (82-101) 10/08/23 00:35 MCH 28.5 pg (27-33) 10/08/23 00:35 MCHC 33.3 g/dL (30-55) 10/08/23 00:35 RDW 14.4 % (12.1-15.1) 10/08/23 00:35 Plt Count 262 10^3/cmm (157-399) 10/08/23 00:35 MPV 9.2 fL (7.4-10.4) 10/08/23 00:35 Neut % (Auto) 74.7 % 10/08/23 00:35 Lymph % (Auto) 19.2 % 10/08/23 00:35 [place] % (Auto) 4.3 % 10/08/23 00:35 Eos % (Auto) 1.2 % 10/08/23 00:35 Baso % (Auto) 0.4 % 10/08/23 00:35 Neut # (Auto) 6.86 10^3/uL (1.8-7.7) 10/08/23 00:35 Lymph # (Auto) 1.8 10^3/uL (0.8-4.8) 10/08/23 00:35 [place] # (Auto) 0.4 10^3/uL (0.2-0.9) 10/08/23 00:35 Eos # (Auto) 0.1 10^3/uL (0.0-0.8) 10/08/23 00:35 Baso # (Auto) 0.0 10^3/uL (0.0-0.1) 10/08/23 00:35 Nucleated RBC % (auto) 0 % 10/08/23 00:35 Nucleated RBCs # 0.0 /100WBC 10/08/23 00:35 Sodium 138 mmol/L (136-145) 10/08/23 00:35 Potassium 3.4 mmol/L (3.5-5.1) L 10/08/23 00:35 Chloride 99 mmol/L (98-107) 10/08/23 00:35 Carbon Dioxide 26 mmol/L (22-29) 10/08/23 00:35 Anion Gap 16.4 (5-19) 10/08/23 00:35 BUN 10 mg/dL (6-20) 10/08/23 00:35 Creatinine 0.8 mg/dL (0.7-1.2) 10/08/23 00:35 GFR Calculation 98.9 mL/min (90-130) 10/08/23 00:35 Glucose 169 mg/dL (65-115) H 10/08/23 00:35 Calculated Osmolality 289 mOsm/kg (285-295) 10/08/23 00:35 Calcium 9.9 mg/dL (8.5-10.5) 10/08/23 00:35 Total Bilirubin 0.5 mg/dL (0.15-1.2) 10/08/23 00:35 AST 9 U/L (0-40) 10/08/23 00:35 ALT < 5 U/L (0-41) 10/08/23 00:35 Alkaline Phosphatase 88 U/L (40-130) 10/08/23 00:35 Total Protein 8.0 g/dL (6.6-8.7) 10/08/23 00:35 Albumin 4.1 g/dL (3.5-5.2) 10/08/23 00:35 Globulin 3.9 g/dL (1.3-4.6) 10/08/23 00:35 Lipase 49 U/L (13-60) 10/08/23 00:35 Urine Color Yellow (Yellow) 10/08/23 00:54 Urine Appearance Clear (CLEAR) 10/08/23 00:54 Urine pH 5 (5-7) 10/08/23 00:54 Ur Specific [place] 1.010 (1.005-1.030) 10/08/23 00:54 Urine Protein Trace (Negative) 10/08/23 00:54 Urine Glucose (UA) Norm (Normal) 10/08/23 00:54 Urine Ketones 1+ (Negative) H 10/08/23 00:54 Urine Blood 2+ (Negative) H 10/08/23 00:54 Urine Nitrate Negative (Negative) 10/08/23 00:54 Urine Bilirubin Neg (Negative) 10/08/23 00:54 Urine Urobilinogen Neg mg/dL (Negative) 10/08/23 00:54 Ur Leukocyte Esterase Negative (Negative) 10/08/23 00:54 Urine RBC 0-4 /hpf (0-2) H 10/08/23 00:54 Urine WBC None /hpf (0-5) 10/08/23 00:54 Ur Squamous Epith Cells None /hpf (0-5) 10/08/23 00:54 Amorphous Sediment Not Reportable 10/08/23 00:54 Urine Bacteria Trace /hpf (NONE) 10/08/23 00:54 Urine Mucus 2+ /hpf 10/08/23 00:54 All radiology interpretation(s) finalized by discharge Discharge Plan Discharge Patient Disposition: Home Clinical Impression: Abdominal pain Qualifiers: Abdominal location: unspecified location Qualified Code(s): R10.9 - Unspecified abdominal pain Nausea & vomiting Qualifiers: Vomiting type: unspecified Qualified Code(s): R11.2 - Nausea with vomiting, unspecified Headache Qualifiers: Headache type: unspecified Headache chronicity pattern: acute headache I ntractability: not intractable Qualified Code(s): R51.9 - Headache, unspecified Condition: Stable Prescriptions: No Action indomethacin 25 mg/5 mL suspension 25 mg PO TID Qty: 237 1RF Rx Instructions: take with food for 10 days, discontinue and can repeat for gout flareups omeprazole 40 mg capsule,delayed release(DR/EC) 40 mg PO QAM Qty: 90 1RF potassium chloride 20 mEq packet 20 meq PO BID Qty: 100 5RF metoprolol tartrate 50 mg tablet 50 mg PO BID carbidopa-levodopa 25-250 mg tablet 2 tab PO DAILY Tylenol Extended Release capsule 1,000 mg PO BID Discharge Orders: Discharge ED (Routine); Ordered 10/08/23 Ordered By: Abdiaziz Cruz Referrals: Wali Moon MD [Primary Care Provider] - 1 week Patient Instructions: Abdominal Pain (ED), Acute Headache (ED), Acute Nausea and Vomiting (DC) Activity Restrictions/Additional Instructions: Your evaluation in ER was unremarkable for all your multi symptomatology. Please follow-up with your family practice physician for further evaluation and testing. You refused your pain medicine. In your chart says you are allergic to all narcotics and Toradol and tramadol. Coding Level of Care Code ED Electric Distribution Engineer for Mu Perssley
[2023-10-08 01:05] LABS: Alanine Aminotransferase < 5 U/L (0-41); Albumin Level 4.1 g/dL (3.5-5.2); Alkaline Phosphatase 88 U/L (40-130); Anion Gap 16.4 (5-19); Aspartate Amino Transferase 9 U/L (0-40); Blood Urea Nitrogen 10 mg/dL (6-20); Calcium 9.9 mg/dL (8.5-10.5); Carbon Dioxide 26 mmol/L (22-29); Chloride 99 mmol/L (98-107); Creatinine Clr Calc Pharmacy 96.5413; Globulin 3.9 g/dL (1.3-4.6); Glomerular Filtration Rate 98.9 mL/min (90-130); Glucose 169 mg/dL (65-115); Osmolality Calculated 289 mOsm/kg (285-295); Potassium 3.4 mmol/L (3.5-5.1); Sodium 138 mmol/L (136-145); Total Bilirubin 0.5 mg/dL (0.15-1.2)
[2023-10-08 01:09] LABS: Lipase 49 U/L (13-60)
[2023-10-08 01:11] VITALS: BP 138/96; PULSE 92; O2SAT 94
[2023-10-08 01:34] VITALS: BP 140/98; PULSE 88; O2SAT 96
[2023-10-08 01:37] LABS: Add Urine Microscopic? YES; Bilirubin Urine Neg (Negative); Blood Urine 2+ (Negative); Glucose Urine UA Norm (Normal); Ketones Urine 1+ (Negative); Leukocyte Esterase Urine Negative (Negative); Nitrate Urine Negative (Negative); Protein Urine Trace (Negative); Urine Appearance Clear (CLEAR); Urine Color Yellow (Yellow); Urobilinogen Urine Neg (Negative); pH Urine 5 (5-7)
[2023-10-08 01:38] LABS: Add Urine Culture? No; Bacteria Urine TRACE /hpf; Mucus Urine 2+ /hpf; RBC Urine 0-4 /hpf (0-2)
--- NOTE | 2023-10-08 02:08 | PC.NURSE ---
Nurse rounded to pass pain medications. When patient asked what kind of pain medication he was to receive, the nurse responded with Tylenol and the ordered dosage. Patient stated, Well that isn't going to help me. This nurse verified whether or not he still wanted Tylenol for his pain or not. Patient stated, No. Since nobody is going to listen to me. Patient then requested to speak to attending physician and requested to know status of test results. notified of patient request and patient refusal to pain medication.
[2023-10-08 02:10] VITALS: BP 148/102; PULSE 87; O2SAT 97
--- NOTE | 2023-10-08 02:25 | PC.NURSE ---
Patient requested to speak with physician. Physician was notified. Patient then yelled out into forte, Nurse! I want to leave. Dr also made aware of patient demand. Patient was brought discharge papers, and patient yelled at nurse, I don't know why nobody has come in here with results, and nobody has listened to me about my pain. Nurse educated patient that physician had not yet come in with results prior to patient requesting to leave within such a short time span, and that patient was also offered pain medication that he had ultimately resulted. Patient stated, I just want to leave. This treatment has been awful. Patient refused to sign discharge papers. Patient had no IV and was helped into wheelchair, and sent out into waiting room with all papers and belongings.
== END 2023-10-08 02:30 | disposition home or self-care (01) ==
PROVIDERS: Emergency Provider Emergency Medicine; PCP Family Medicine Adult Medicine
DX: R11.2 Nausea with vomiting, unspecified (principal); R51.9 Headache, unspecified; R10.9 Unspecified abdominal pain; Z86.73 Personal history of transient ischemic attack (TIA), and cerebral infarction without residual deficits; I10 Essential (primary) hypertension; I25.10 Atherosclerotic heart disease of native coronary artery without angina pectoris; G20.A1 Parkinson's disease without dyskinesia, without mention of fluctuations; F17.220 Nicotine dependence, chewing tobacco, uncomplicated
CPT/HCPCS: 36415; 71045; 80053; 81001; 83690; 85025; 99284

== ENCOUNTER → 2023-10-17 13:28 | Outpatient (BNVA) | payer MEDICARE, MEDICAID, SELFPAY | PROVIDERS: PCP Family Medicine Adult Medicine; Visit Provider Podiatrist Foot & Ankle Surgery | DX: Z98.890 Other specified postprocedural states (principal) | CPT/HCPCS: 73630; 99024 ==

== ENCOUNTER → 2023-11-14 13:32 | Outpatient (BNVA) | payer MEDICARE, MEDICAID, SELFPAY | PROVIDERS: PCP Family Medicine Adult Medicine; Visit Provider Podiatrist Foot & Ankle Surgery | DX: M21.611 Bunion of right foot (principal); M1A.0710 Idiopathic chronic gout, right ankle and foot, without tophus (tophi); Z98.890 Other specified postprocedural states | CPT/HCPCS: 73630; 99214 ==

== ENCOUNTER 2023-11-29 01:14 | Emergency (ER) | payer MEDICARE, MEDICAID, SELFPAY ==
[2023-11-29 01:18] VITALS: BP 132/92; PULSE 106; RESP 14; TEMP 37.2; O2SAT 95; BMI 28.3
--- NOTE | 2023-11-29 01:53 | W.ED.EXTPRO ---
HPI - Extremity Problem General: Chief complaint: Extremity Injury, Upper Stated complaint: Poss Sepsis RT ARM Time Seen by Provider: 11/29/23 01:30 History of Present Illness: Patient presents to the ER via EMS with complaints of swelling to the right arm from the wrist up to the elbow. Patient states that his sepsis he has had it before. Patient also complains of intermittent optical migraines for the last 3 days. He said he had 5 optical migraines yesterday. These headaches are like his headaches in the past. Patient said for the last 3 days he has been taking indomethacin and prednisone because he also thought he had a gout flareup in his arm but has not helped. 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 Chronic confusion Nasal sinus congestion Pre-diabetes TIA (transient ischemic attack) Fusion of lumbar spine Chewing tobacco nicotine dependence Age [age] (currently) Hypertension CAD (coronary artery disease) Anxiety and depression DDD (degenerative disc disease) Migraines Osteoarthritis Gout Parkinsons disease Surgical History History of total knee arthroplasty Left TKA x2 revision needed due to loosening of hardware, no history of infection Hx of bilateral hip replacements 3 on right hip and 0 left Hx of colonoscopy with polypectomy 2009, repeat 12/27/2022 with polyps, next in 5 years History of esophagogastroduodenoscopy (EGD) 2009, repeat 12/27/2022 no abnormality, bx done S/P cervical spinal fusion Status post surgery History of back surgery x6 different surgeries on the spine Family History Father Stroke Heart attack Brother Hypertension Sister Heart attack Social History Smoking and tobacco/nicotine status: current every day tobacco/nicotine user smokeless tobacco Smokeless tobacco user: chewing tobacco Alcohol intake: former Substance/Drug Use: current Substance/Drug use frequency: other Other substance/drug use details: medical marijuana Caregiver/support person: No Lives independently: Yes Household members: none Marital status: Single Highest education level completed: Some College, No Degree service: No Current occupational status: retired and disabled Do you think of yourself as: Straight/Heterosexual Current gender identity: Male Physical Exam Const: COMMON NORMALS: no acute distress, average body habitus, patient oriented x3, no limitations, healthy appearing, alert and well nourished HENMT: COMMON NORMALS: normocephalic, atraumatic, hearing grossly normal bilaterally, external ears normal, Normal external nose present and moist oral mucous membranes HEAD & SCALP: normocephalic and atraumatic NOSE: Normal external nose present EXTERNAL EAR: Yes external ears normal Eye: COMMON NORMALS: Equal, round and reactive pupils present, EOMs intact bilaterally, conjunctivae normal and no scleral icterus CONJUNCTIVA: Yes conjunctivae normal PUPIL: Yes Equal, round and reactive pupils present Neck/C-Spine: COMMON NORMALS: no JVD Chest: COMMONS NORMALS: normal inspection of the chest and normal palpation of entire chest wall Resp: COMMON NORMALS: normal respiratory effort, No retractions, No use of accessory muscles and clear to auscultation bilaterally AUSCULTATION: clear to auscultation bilaterally Cardio: COMMON NORMALS: no JVD, regular rate, regular rhythm, S1 normal heart sound present, S2 normal heart sound present, No gallops present (Cardio), No clicks present (Cardio), No murmurs present (Cardio) and No rub (Cardio) RATE: regular rate RHYTHM: regular rhythm HEART SOUNDS: S1 normal heart sound present and S2 normal heart sound present GI: COMMON NORMALS: Normal to inspection, nondistended, normoactive bowel sounds present, Soft to palpation, non-tender, No hepatosplenomegaly present and no masses PALPATION: Yes Soft to palpation and Yes No hepatosplenomegaly present Extremity: NARRATIVE EXTREMITY EXAM: Tenderness with palpation over the entire right forearm region from wrist to elbow. No discrete point tenderness noted, no swelling no erythema Neuro: COMMON NORMALS: patient oriented x3 SENSORIUM/ORIENTATION: Yes alert Course Vital Signs: Vital signs: Vital Signs Temperature 99.0 F 11/29/23 01:18 Pulse Rate 84 11/29/23 05:14 Respiratory Rate 20 H 11/29/23 05:14 Blood Pressure 117/82 11/29/23 05:14 Pulse Oximetry 94 11/29/23 05:14 Oxygen Delivery Me thod Room Air 11/29/23 01:18 MDM - Extremity (Nontraumatic) Medical Decision Making Lab work was obtained as as well as x-rays. Forearm x-ray and hand x-ray showed postop changes in arthritis. Lab work showed white count of 16, lactic acid 1.6, uric acid 6.7, C-reactive protein 119, procalcitonin 0.06, patient has been on prednisone and indomethacin for at least 3 days and this is thought to have increased to the white blood cell count. These results was discussed with the patient patient was also given 500 mg IV Depacon, Reglan 10 mg, Benadryl 50 mg, and a liter normal saline this improved his headache. Patient be discharged home to follow-up with his PCP. Lab Data 11/29/23 02:25 11/29/23 02:54 Radiology Impressions Forearm X-Ray 11/29/23 01:54 IMPRESSION: 1. Postoperative changes over the lateral elbow. 2. Primary osteoarthritis in the medial elbow joint. 3. Moderate elbow primary osteoarthritis. 4. Probable chronic subluxation of the distal ulna with respect to the ulnar carpal joint. 5. Possible healed fractures of the distal radius and distal ulna. Hand X-Ray 11/29/23 01:54 IMPRESSION: 1. Radiocarpal arthritis. 2. Soft tissue swelling over the dorsal wrist. Laboratory Results WBC 16.32 10^3/uL (3.29-11.43) H 11/29/23 02:25 RBC 5.71 10^6/uL (3.85-5.65) H 11/29/23 02:25 Hgb 16.20 g/dL (11.27-16.99) 11/29/23 02:25 Hct 53.3 % (37-53) H 11/29/23 02:25 MCV 93.3 fl (82-101) 11/29/23 02:25 MCH 28.4 pg (27-33) 11/29/23 02:25 MCHC 30.4 g/dL (30-55) 11/29/23 02:25 RDW 15.5 % (12.1-15.1) H 11/29/23 02:25 Plt Count 278 10^3/cmm (157-399) 11/29/23 02:25 MPV 9.6 fL (7.4-10.4) 11/29/23 02:25 Neut % (Auto) 91.4 % 11/29/23 02:25 Lymph % (Auto) 5.6 % 11/29/23 02:25 [place] % (Auto) 2.1 % 11/29/23 02:25 Eos % (Auto) 0.2 % 11/29/23 02:25 Baso % (Auto) 0.2 % 11/29/23 02:25 Neut # (Auto) 14.91 10^3/uL (1.8-7.7) H 11/29/23 02:25 Lymph # (Auto) 0.9 10^3/uL (0.8-4.8) 11/29/23 02:25 [place] # (Auto) 0.3 10^3/uL (0.2-0.9) 11/29/23 02:25 Eos # (Auto) 0.0 10^3/uL (0.0-0.8) 11/29/23 02:25 Baso # (Auto) 0.0 10^3/uL (0.0-0.1) 11/29/23 02:25 Nucleated RBC % (auto) 0 % 11/29/23 02:25 Nucleated RBCs # 0.0 /100WBC 11/29/23 02:25 Sodium 134 mmol/L (136-145) L 11/29/23 02:54 Potassium 3.7 mmol/L (3.5-5.1) 11/29/23 02:54 Chloride 98 mmol/L (98-107) 11/29/23 02:54 Carbon Dioxide 22 mmol/L (22-29) 11/29/23 02:54 Anion Gap 17.7 (5-19) 11/29/23 02:54 BUN 17 mg/dL (6-20) 11/29/23 02:54 Creatinine 0.8 mg/dL (0.7-1.2) 11/29/23 02:54 GFR Calculation 98.9 mL/min (90-130) 11/29/23 02:54 Glucose 143 mg/dL (65-115) H 11/29/23 02:54 Calculated Osmolality 282 mOsm/kg (285-295) L 11/29/23 02:54 Lactic Acid 1.6 mmol/L (0.5-2.2) 11/29/23 02:54 Uric Acid 6.7 mg/dL (3.4-7.0) 11/29/23 02:54 Calcium 8.4 mg/dL (8.5-10.5) L 11/29/23 02:54 Total Bilirubin 0.7 mg/dL (0.15-1.2) 11/29/23 02:54 AST 7 U/L (0-40) 11/29/23 02:54 ALT < 5 U/L (0-41) 11/29/23 02:54 Alkaline Phosphatase 72 U/L (40-130) 11/29/23 02:54 C-Reactive Protein 119.6 mg/L (0.0-4.9) H 11/29/23 02:54 Total Protein 6.8 g/dL (6.6-8.7) 11/29/23 02:54 Albumin 3.3 g/dL (3.5-5.2) L 11/29/23 02:54 Globulin 3.5 g/dL (1.3-4.6) 11/29/23 02:54 Procalcitonin 0.06 ng/mL (0-0.5) 11/29/23 02:54 All radiology interpretation(s) finalized by discharge Discharge Plan Discharge Patient Disposition: Home Clinical Impression: Arthritis of upper arm Headache Qualifiers: Headache type: unspecified Headache chronicity pattern: acute headache Intractability: not intractable Qualified Code(s): R51.9 - Headache, unspecified Condition: Stable Prescriptions: No Action indomethacin 25 mg/5 mL suspension 25 mg PO TID Qty: 237 1RF Rx Instructions: take with food for 10 days, discontinue and can repeat for gout flareups azelastine 137 mcg (0.1 %) aerosol,spray 2 spray intranasal BID Qty: 30 1RF Rx Instructions: administer into each nostril guaifenesin 600 mg tablet extended release 12hr 600 mg PO BID Qty: 20 0RF omeprazole 40 mg capsule,delayed release(DR/EC) 40 mg PO QAM Qty: 90 1RF potassium chloride 20 mEq packet 20 meq PO BID Qty: 100 5RF febuxostat 40 mg tablet 40 mg PO DAILY Qty: 30 5RF metoprolol tartrate 50 mg tablet 50 mg PO BID carbidopa-levodopa 25-250 mg tablet 2 tab PO DAILY Tylenol Extended Release capsule 1,000 mg PO BID Discharge Orders: Discharge ED (Routine); Ordered 11/29/23 Ordered By: Abdiaziz Cruz Referrals: Wali Moon MD [Primary Care Provider] - 1 week Patient Instructions: Headache, Osteoarthritis (ED) Activity Restrictions/Additional Instructions: Please follow-up with your family proximal physician for further evaluation and treatment and definitive care of your arthritis, headache and chronic pain. Thank you for choosing [facility] for your healthcare needs today. Please realize that you were seen in the emergency department and that we are providing you with an emergency medical screening exam and this may not be a complete and all exclusive of all testing and/or medical workup we may need to determine your element or severity of your illness. It is very important that you follow-up as instructed with your primary care provider or specialist for the additional evaluation and to discuss your medical treatment plan. You may return to the emergency department should you have concerns or if your condition changes or worsens in any way. Coding Level of Care Code ED Rotary Bar Operator for Mu Pressley
--- NOTE | 2023-11-29 01:54 | XRR_ITS ---
PROCEDURE INFORMATION: Exam: XR Right Hand Exam date and time: 11/29/2023 2:02 AM Age: 58 years old Clinical indication: Swelling; Wrist; Right; Additional info: Pain swelling TECHNIQUE: Imaging protocol: Radiologic exam of the right hand. Views: 3 or more views. COMPARISON: No relevant prior studies available. FINDINGS: Bones/joints: Radiocarpal arthritis. Soft tissues: Soft tissue swelling over the dorsal wrist. XR/XR hand RT min 3V* [id number] IMPRESSION: 1. Radiocarpal arthritis. 2. Soft tissue swelling over the dorsal wrist.
--- NOTE | 2023-11-29 01:54 | XRR_ITS ---
PROCEDURE INFORMATION: Exam: XR Right Forearm Exam date and time: 11/29/2023 2:06 AM Age: 58 years old Clinical indication: Swelling; Wrist; Right; Additional info: Pain swelling TECHNIQUE: Imaging protocol: Radiologic exam of the right forearm. Views: 2 views. COMPARISON: CR (UP EXM, ) 11/29/2023 2:02 AM FINDINGS: Bones/joints: Primary osteoarthritis in the medial elbow joint. Moderate elbow primary osteoarthritis. Probable chronic subluxation of the distal ulna with respect to the ulnar carpal joint. Possible healed fractures of the distal radius and distal ulna. Soft tissues: Normal. Other findings: Postoperative changes over the lateral elbow. XR/XR forearm RT 2V [id number] IMPRESSION: 1. Postoperative changes over the lateral elbow. 2. Primary osteoarthritis in the medial elbow joint. 3. Moderate elbow primary osteoarthritis. 4. Probable chronic subluxation of the distal ulna with respect to the ulnar carpal joint. 5. Possible healed fractures of the distal radius and distal ulna.
[2023-11-29 02:30] LABS: Basophils % 0.2 %; Eosinophils % 0.2 %; Hematocrit 53.3 % (37-53); Lymphocytes # 0.9 10^3/uL (0.8-4.8); Lymphocytes % 5.6 %; Mean Corpuscular HGB Conc 30.4 g/dL (30-55); Mean Corpuscular Hemoglobin 28.4 pg (27-33); Mean Corpuscular Volume 93.3 fl (82-101); Mean Platelet Volume 9.6 fL (7.4-10.4); Monocytes # 0.3 10^3/uL (0.2-0.9); Monocytes % 2.1 %; Neutrophils # 14.91 10^3/uL (1.8-7.7); Neutrophils % 91.4 %; Nucleated Red Blood Cells % 0 %; Platelet Count 278 10^3/cmm (157-399); Red Blood Count 5.71 10^6/uL (3.85-5.65); Red Cell Distribution Width 15.5 % (12.1-15.1); White Blood Count 16.32 10^3/uL (3.29-11.43)
[2023-11-29] MEDS: metoclopramide 5 mg/mL SDV 2 mL 10 MG IVP (02:47)
[2023-11-29] MEDS: sodium chloride 0.9% 1,000 ML 999 ML IV (02:47)
[2023-11-29] MEDS: valproic acid inj 500 MG in sodium chloride 0.9% 50 ML 55 MG IV (02:47)
[2023-11-29] MEDS: diphenhydrAMINE 50 mg/mL SDV 1mL IVP (02:47)
--- NOTE | 2023-11-29 02:49 | PC.NURSE ---
Pt. started twitching his right leg and states I think my parkinson's is coming back, my meds are in my bag . I have cleared patient taking home medications with doctor and at this time Dr. Cruz is okay with patient taking his home medications.
[2023-11-29 03:18] LABS: Alanine Aminotransferase < 5 U/L (0-41); Albumin Level 3.3 g/dL (3.5-5.2); Alkaline Phosphatase 72 U/L (40-130); Anion Gap 17.7 (5-19); Aspartate Amino Transferase 7 U/L (0-40); Blood Urea Nitrogen 17 mg/dL (6-20); C Reactive Protein 119.6 mg/L (0.0-4.9); Calcium 8.4 mg/dL (8.5-10.5); Carbon Dioxide 22 mmol/L (22-29); Chloride 98 mmol/L (98-107); Creatinine Clr Calc Pharmacy 95.2656; Globulin 3.5 g/dL (1.3-4.6); Glomerular Filtration Rate 98.9 mL/min (90-130); Glucose 143 mg/dL (65-115); Osmolality Calculated 282 mOsm/kg (285-295); Potassium 3.7 mmol/L (3.5-5.1); Sodium 134 mmol/L (136-145); Total Bilirubin 0.7 mg/dL (0.15-1.2); Total Protein 6.8 g/dL (6.6-8.7); Uric Acid 6.7 mg/dL (3.4-7.0)
[2023-11-29 04:08] LABS: Lactic Sepsis W/Reflex 1.6 mmol/L (0.5-2.2)
[2023-11-29 04:15] LABS: Procalcitonin 0.06 ng/mL (0-0.5)
[2023-11-29 05:14] VITALS: BP 117/82; PULSE 84; RESP 20; O2SAT 94
== END 2023-11-29 05:15 | disposition home or self-care (01) ==
PROVIDERS: Emergency Provider Emergency Medicine; PCP Family Medicine Adult Medicine
DX: M19.021 Primary osteoarthritis, right elbow (principal); R51.9 Headache, unspecified; F17.220 Nicotine dependence, chewing tobacco, uncomplicated; Z86.73 Personal history of transient ischemic attack (TIA), and cerebral infarction without residual deficits; I10 Essential (primary) hypertension; I25.10 Atherosclerotic heart disease of native coronary artery without angina pectoris; G20.A1 Parkinson's disease without dyskinesia, without mention of fluctuations
CPT/HCPCS: 36415; 73090; 73130; 80053; 83605; 84145; 84550; 85025; 86140; 96374; 96375; 99284; J1200; J2765; J3490; J7030

== ENCOUNTER 2023-12-13 20:43 | Emergency (ER) | payer MEDICARE, MEDICAID, SELFPAY ==
--- NOTE | 2023-12-13 20:45 | XRR_ITS ---
PROCEDURE INFORMATION: Exam: XR Chest Exam date and time: 12/13/2023 9:13 PM Age: 58 years old Clinical indication: Pain; Chest pressure; Prior surgery; Surgery date: 6+ months; Surgery type: Cervical spine; Additional info: Cp TECHNIQUE: Imaging protocol: Radiologic exam of the chest. Views: 1 view. COMPARISON: CR XR chest 1V portable [id number] 10/08/2023 12:56 AM FINDINGS: Lungs: No consolidation. Pleural spaces: No large pleural effusion. No pneumothorax. Heart/Mediastinum: Unremarkable. No cardiomegaly. Bones/joints: Partially imaged fixation hardware in the cervical spine. Visible acute fracture. XR/XR chest 1V portable [id number] IMPRESSION: No acute findings.
--- NOTE | 2023-12-13 20:45 | ECG_ITS ---
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 Measurements Intervals [place] Rate: 99 P: 52 [place]: 148 QRS: 7 QRSD: 88 T: 37 QT: 345 QTc: 443 Interpretive Statements SINUS RHYTHM MINIMAL VOLTAGE CRITERIA FOR LVH, CONSIDER NORMAL VARIANT [MEETS CRITERIA IN ONE OF: R(aVL), S(V1), R(V5), R(V5/V6)+S(V1)] Compared to ECG 08/12/2023 22:10:46 T-wave abnormality no longer present Electronically Signed On 12-14-2023 19:06:31 CDT by Kalia Duff M.D. [email or web address]
[2023-12-13 20:50] VITALS: BP 144/98; PULSE 99; RESP 20; TEMP 36.6; O2SAT 98; BMI 36.6
--- NOTE | 2023-12-13 21:03 | ED_ITS ---
HPI - Headache 2 General: Chief Complaint: Headache Stated Complaint: CHEST PAIN Time Seen by Provider: 12/13/23 20:45 Source: patient and EMS Mode of arrival: EMS Limitations: no limitations History of Present Illness: 58-year-old male is very well-known to [facility]. He has a history of migraines states he woke up this morning with a migraine he states it is waxed and waned throughout the day states that it is worse and this evening his headaches currently an 8 out of 10 states he feels like it is radiating into his chest denies any severe chest pain that is mild in nature denies any shortness of breath denies any weakness or focal deficits. Associated symptoms: Reports chest pain; Deny fever(s), nausea, rash or vomiting Review of Systems 2 Const: Denies: fever(s), chills, body aches or change in appetite Eyes: Denies: blurry vision or eye discomfort ENMT: Denies: throat pain or dental pain Card: Reports: chest pain Resp: Denies: dyspnea GI: Denies: abdominal pain, nausea, vomiting or diarrhea Musc: Denies: neck pain or back pain Skin/Breast: Denies: rash Neuro: Reports: headache(s) PFSH ED 2 PFSH: Medical History Headaches due to old head injury Chronic confusion Nasal sinus congestion Pre-diabetes TIA (transient ischemic attack) Fusion of lumbar spine Chewing tobacco nicotine dependence Age [age] (currently) Hypertension CAD (coronary artery disease) Anxiety and depression DDD (degenerative disc disease) Migraines Osteoarthritis Gout Parkinsons disease Surgical History History of total knee arthroplasty Left TKA x2 revision needed due to loosening of hardware, no history of infection Hx of bilateral hip replacements 3 on right hip and 0 left Hx of colonoscopy with polypectomy 2009, repeat 12/27/2022 with polyps, next in 5 years History of esophagogastroduodenoscopy (EGD) 2009, repeat 12/27/2022 no abnormality, bx done S/P cervical spinal fusion Status post surgery History of back surgery x6 different surgeries on the spine Family History Father Stroke Heart attack Brother Hypertension Sister Heart attack Social History Smoking and tobacco/nicotine status: current every day tobacco/nicotine user smokeless tobacco Smokeless tobacco user: chewing tobacco Alcohol intake: former Substance/Drug Use: current Substance/Drug use frequency: other Other substance/drug use details: medical marijuana Caregiver/support person: No Lives independently: Yes Household members: none Marital status: Single Highest education level completed: Some College, No Degree service: No Current occupational status: retired and disabled Do you think of yourself as: Straight/Heterosexual Current gender identity: Male Physical Exam 2 Const: COMMON NORMALS: no acute distress, patient oriented x3 and healthy appearing HENMT: COMMON NORMALS: normocephalic and atraumatic HEAD & SCALP: n ormocephalic and atraumatic Eye: COMMON NORMALS: Equal, round and reactive pupils present and EOMs intact bilaterally PUPIL: Yes Equal, round and reactive pupils present Neck/C-Spine: COMMON NORMALS: full ROM and supple Chest: COMMONS NORMALS: normal inspection of the chest Resp: COMMON NORMALS: normal respiratory effort, No retractions, No use of accessory muscles and clear to auscultation bilaterally AUSCULTATION: clear to auscultation bilaterally Cardio: COMMON NORMALS: regular rate, regular rhythm and No murmurs present (Cardio) RATE: regular rate RHYTHM: regular rhythm Extremity: COMMON NORMALS: normal to inspection and full ROM Neuro: COMMON NORMALS: patient oriented x3, moves all extremities and no focal motor deficits Psych: COMMON NORMALS: mental status grossly normal, Normal thought process present and cooperative THOUGHT PROCESS: Normal thought process present Skin: COMMON NORMALS: no rashes or lesions noted and no wounds GENERAL SKIN EXAM: no rashes or lesions noted Course 2 Vital Signs: Vital signs: Vital Signs Temperature 98 F 12/13/23 20:50 Pulse Rate 76 12/13/23 22:00 Respiratory Rate 18 12/13/23 22:00 Blood Pressure 143/95 12/13/23 22:00 Pulse Oximetry 91 12/13/23 22:00 MDM - Headache Medical Decision Making Patient presents here with headache has a history of headaches states resolved here no signs of subarachnoid hemorrhage she had some chest pains likely related to his headache as it has not radiated from his head his troponin here is negative no signs of ACS he stable for discharge. Medical Records I reviewed the patient's medical records. Lab Data I reviewed the patient's lab results. 12/13/23 21:06 12/13/23 21:06 Radiology Impressions Chest X-Ray 12/13/23 20:45 IMPRESSION: No acute findings. Laboratory Results WBC 12.95 10^3/uL (3.29-11.43) H 12/13/23 21:06 RBC 5.07 10^6/uL (3.85-5.65) 12/13/23 21:06 Hgb 14.30 g/dL (11.27-16.99) 12/13/23 21:06 Hct 43.9 % (37-53) 12/13/23 21:06 MCV 86.6 fl (82-101) 12/13/23 21:06 MCH 28.2 pg (27-33) 12/13/23 21:06 MCHC 32.6 g/dL (30-55) 12/13/23 21:06 RDW 15.5 % (12.1-15.1) H 12/13/23 21:06 Plt Count 237 10^3/cmm (157-399) 12/13/23 21:06 MPV 9.2 fL (7.4-10.4) 12/13/23 21:06 Neut % (Auto) 78.3 % 12/13/23 21:06 Lymph % (Auto) 13.8 % 12/13/23 21:06 [place] % (Auto) 6.4 % 12/13/23 21:06 Eos % (Auto) 0.5 % 12/13/23 21:06 Baso % (Auto) 0.2 % 12/13/23 21:06 Neut # (Auto) 10.14 10^3/uL (1.8-7.7) H 12/13/23 21:06 Lymph # (Auto) 1.8 10^3/uL (0.8-4.8) 12/13/23 21:06 [place] # (Auto) 0.8 10^3/uL (0.2-0.9) 12/13/23 21:06 Eos # (Auto) 0.1 10^3/uL (0.0-0.8) 12/13/23 21:06 Baso # (Auto) 0.0 10^3/uL (0.0-0.1) 12/13/23 21:06 Nucleated RBC % (auto) 0 % 12/13/23 21:06 Nucleated RBCs # 0.0 /100WBC 12/13/23 21:06 Sodium 141 mmol/L (136-145) 12/13/23 21:06 Potassium 3.8 mmol/L (3.5-5.1) 12/13/23 21:06 Chloride 100 mmol/L (98-107) 12/13/23 21:06 Carbon Dioxide 27 mmol/L (22-29) 12/13/23 21:06 Anion Gap 17.8 (5-19) 12/13/23 21:06 BUN 22 mg/dL (6-20) H 12/13/23 21:06 Creatinine 1.0 mg/dL (0.7-1.2) 12/13/23 21:06 GFR Calculation 76.5 mL/min (90-130) L 12/13/23 21:06 Glucose 106 mg/dL (65-115) 12/13/23 21:06 Calculated Osmolality 296 mOsm/kg (285-295) H 12/13/23 21:06 Calcium 8.2 mg/dL (8.5-10.5) L 12/13/23 21:06 Total Bilirubin 0.3 mg/dL (0.15-1.2) 12/13/23 21:06 AST 13 U/L (0-40) 12/13/23 21:06 ALT < 5 U/L (0-41) 12/13/23 21:06 Alkaline Phosphatase 71 U/L (40-130) 12/13/23 21:06 Troponin T Baseline 10 ng/L (0-15) 12/13/23 21:06 Total Protein 6.1 g/dL (6.6-8.7) L 12/13/23 21:06 Albumin 3.6 g/dL (3.5-5.2) 12/13/23 21:06 Globulin 2.5 g/dL (1.3-4.6) 12/13/23 21:06 Lipase 33 U/L (13-60) 12/13/23 21:06 All radiology interpretation(s) finalized by discharge EKG Data EKG 1: I personally reviewed and interpreted this EKG as follows: EKG interpretation date: 12/13/23 EKG interpretation time: 20:41 Interpretation: nsr hr [address] elevation qrs 88 qtc 401 Discharge Plan Discharge Patient Disposition: Home Clinical Impression: Headache, Chest pain Condition: Stable Prescriptions: No Action indomethacin 25 mg/5 mL suspension 25 mg PO TID Qty: 237 1RF Rx Instructions: take with food for 10 days, discontinue and can repeat for gout flareups azelastine 137 mcg (0.1 %) aerosol,spray 2 spray intranasal BID Qty: 30 1RF Rx Instructions: administer into each nostril guaifenesin 600 mg tablet extended release 12hr 600 mg PO BID Qty: 20 0RF omeprazole 40 mg capsule,delayed release(DR/EC) 40 mg PO QAM Qty: 90 1RF potassium chloride 20 mEq packet 20 meq PO BID Qty: 100 5RF febuxostat 40 mg tablet 40 mg PO DAILY Qty: 30 5RF metoprolol tartrate 50 mg tablet 50 mg PO BID carbidopa-levodopa 25-250 mg tablet 2 tab PO DAILY Tylenol Extended Release capsule 1,000 mg PO BID Discharge Orders: Discharge ED (Routine); Ordered 12/13/23 Ordered By: Heidi Abreu Referrals: Wali Moon MD [Primary Care Provider] - 4-7 days Discharge Diet: Advance as tolerated Discharge Activity: Resume usual activity Patient Instructions: Chest Pain (ED), General Headache (ED) Coding 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
[2023-12-13] MEDS: morphine 4 mg/mL SDV 1 mL IVP (21:09)
[2023-12-13] MEDS: ondansetron 2 mg/ML SDV 2 mL 4 MG IVP (21:09)
[2023-12-13 21:13] VITALS: BP 136/97; PULSE 94; RESP 16; O2SAT 92
[2023-12-13 21:14] LABS: Basophils % 0.2 %; Eosinophils # 0.1 10^3/uL (0.0-0.8); Eosinophils % 0.5 %; Hematocrit 43.9 % (37-53); Lymphocytes # 1.8 10^3/uL (0.8-4.8); Lymphocytes % 13.8 %; Mean Corpuscular HGB Conc 32.6 g/dL (30-55); Mean Corpuscular Hemoglobin 28.2 pg (27-33); Mean Corpuscular Volume 86.6 fl (82-101); Mean Platelet Volume 9.2 fL (7.4-10.4); Monocytes # 0.8 10^3/uL (0.2-0.9); Monocytes % 6.4 %; Neutrophils # 10.14 10^3/uL (1.8-7.7); Neutrophils % 78.3 %; Nucleated Red Blood Cells % 0 %; Platelet Count 237 10^3/cmm (157-399); Red Blood Count 5.07 10^6/uL (3.85-5.65); Red Cell Distribution Width 15.5 % (12.1-15.1); White Blood Count 12.95 10^3/uL (3.29-11.43)
[2023-12-13 21:31] LABS: Troponin(5th) Baseline 10 ng/L (0-15)
[2023-12-13 21:33] LABS: Alanine Aminotransferase < 5 U/L (0-41); Albumin Level 3.6 g/dL (3.5-5.2); Alkaline Phosphatase 71 U/L (40-130); Anion Gap 17.8 (5-19); Aspartate Amino Transferase 13 U/L (0-40); Blood Urea Nitrogen 22 mg/dL (6-20); Calcium 8.2 mg/dL (8.5-10.5); Carbon Dioxide 27 mmol/L (22-29); Chloride 100 mmol/L (98-107); Globulin 2.5 g/dL (1.3-4.6); Glomerular Filtration Rate 76.5 mL/min (90-130); Glucose 106 mg/dL (65-115); Lipase 33 U/L (13-60); Osmolality Calculated 296 mOsm/kg (285-295); Potassium 3.8 mmol/L (3.5-5.1); Sodium 141 mmol/L (136-145); Total Bilirubin 0.3 mg/dL (0.15-1.2); Total Protein 6.1 g/dL (6.6-8.7)
[2023-12-13] MEDS: acetaminophen 1,000 MG/100 ML PIGGYBACK 400 MG IV (21:48)
[2023-12-13 22:00] VITALS: BP 143/95; PULSE 76; RESP 18; O2SAT 91
== END 2023-12-13 22:22 | disposition home or self-care (01) ==
PROVIDERS: Emergency Provider Emergency Medicine; PCP Family Medicine Adult Medicine
DX: R51.9 Headache, unspecified (principal); R07.9 Chest pain, unspecified; F17.220 Nicotine dependence, chewing tobacco, uncomplicated; Z86.73 Personal history of transient ischemic attack (TIA), and cerebral infarction without residual deficits; I25.10 Atherosclerotic heart disease of native coronary artery without angina pectoris; I10 Essential (primary) hypertension; G20.A1 Parkinson's disease without dyskinesia, without mention of fluctuations
CPT/HCPCS: 36415; 71045; 80053; 83690; 84484; 85025; 93005; 96365; 96375; 99285; J0131; J2270; J2405

== ENCOUNTER 2024-01-03 12:38 | Emergency (ER) | payer MEDICARE, MEDICAID, SELFPAY ==
--- NOTE | 2024-01-03 12:43 | ECG_ITS ---
[facility] Test Date: 2024-01-03 Pat Name: Jude Burden Department: Room: Gender: Male [employer]: : 1965 Requested By: Gavin Jon Order Number: [id number] Isabel MD: Rashad El M.D. Measurements Intervals [place] Rate: 84 P: 53 AK: 152 QRS: 2 QRSD: 90 T: 19 QT: 341 QTc: 403 Interpretive Statements SINUS RHYTHM VOLTAGE CRITERIA FOR LVH [MEETS CRITERIA IN ONE OF: R(aVL), S(V1), R(V5), R(V5/V6)+S(V1)] Compared to ECG 12/13/2023 20:41:46 No significant changes Electronically Signed On 01-07-2024 8:32:02 CDT by Rashad El M.D. [id number]
[2024-01-03 12:56] VITALS: BP 160/104; PULSE 87; RESP 16; TEMP 36.8; O2SAT 97
== END 2024-01-03 13:51 | disposition left against medical advice (07) ==
PROVIDERS: Emergency Provider Family Medicine; PCP Family Medicine Adult Medicine
DX: Z53.21 Procedure and treatment not carried out due to patient leaving prior to being seen by health care provider (principal)
CPT/HCPCS: 93005

== ENCOUNTER → 2024-01-27 15:04 | Outpatient (BNVA) | payer MEDICARE, MEDICAID, SELFPAY | PROVIDERS: PCP Family Medicine Adult Medicine; Visit Provider Internal Medicine Cardiovascular Disease | DX: Z01.818 Encounter for other preprocedural examination (principal); I25.10 Atherosclerotic heart disease of native coronary artery without angina pectoris; I10 Essential (primary) hypertension; I49.3 Ventricular premature depolarization; F17.220 Nicotine dependence, chewing tobacco, uncomplicated | CPT/HCPCS: 99214 ==

== ENCOUNTER 2024-01-30 07:17 | Emergency (ER) | payer MEDICARE, MEDICAID, SELFPAY ==
[2024-01-30 07:20] VITALS: BP 148/95; PULSE 93; TEMP 36.5; O2SAT 95; BMI 28.3
--- NOTE | 2024-01-30 07:21 | CT_ITS ---
WS: [id number] CT CERVICAL TRAUMA TECHNIQUE: Noncontrast CT of the cervical spine with coronal and sagittal reformatted images. CLINICAL INFORMATION: fall COMPARISON: None. DLP: 1754.[address] scans at [facility] use at least one of these dose optimization techniques: automated e xposure control; mA and/or kV adjustment per patient size (includes targeted exams where dose is matc hed to clinical indication); or iterative reconstruction. FINDINGS: Straightening of the normal cervical lordosis. Mild cervical curve. Prior ACDF C6-7. Interbody fusion C4-C5 and C5-C6. Posterior fixation C4-C5 C7 and T1 with interconnecting rods. normal craniocervical junction. Normal C1-C2 articulation. Dens is normal in appearance. Normal occip ital condyles. No high-grade spinal canal narrowing. Normal C1 ring. No evidence of acute fracture or dislocation. Normal prevertebral soft tissues. Mastoids air cells are well aerated. CT/CT cervical spin wo con* [id number] IMPRESSION: No evidence of acute fracture or dislocation.
--- NOTE | 2024-01-30 07:21 | CT_ITS ---
WS: [id number] CT LUMBAR SPINE TECHNIQUE: Noncontrast CT of the lumbar spine with coronal and sagittal reformatted images. CLINICAL INFORMATION: fall COMPARISON: CT 09/02/2023 DLP: 754.[address] scans at [facility] use at least one of these dose optimization techniques: automated e xposure control; mA and/or kV adjustment per patient size (includes targeted exams where dose is matc hed to clinical indication); or iterative reconstruction. FINDINGS: Stable postoperative changes LEFT pedicle screw fixation with interbody fusion. Mild lumbar curve. No acute fractures. Disc bulging worse at L2-L3 and L3-L4 with moderate central canal stenosis similar to previous. Advanced facet arthropathy at these levels. Laminectomy defects lower lumbar spine. L5 i s partially sacralized. CT/CT lumbar spine wo con* [id number] IMPRESSION: 1. No acute fractures. 2. Stable postoperative changes LEFT pedicle screw fixation L4-5 with interbod y fusion. 3. Disc base narrowing with disc bulging worse L2-L3 and L3-L4 with moderate c entral canal stenosis similar to previous
--- NOTE | 2024-01-30 07:21 | CT_ITS ---
WS: [id number] CT HEAD TECHNIQUE: Noncontrast CT of the head obtained from the skullbase to the vertex. CLINICAL INFORMATION: fall COMPARISON: None. DLP: 1754.[address] scans at [facility] use at least one of these dose optimization techniques: automated e xposure control; mA and/or kV adjustment per patient size (includes targeted exams where dose is matc hed to clinical indication); or iterative reconstruction. FINDINGS: No evidence of intracranial hemorrhage or mass effect. Ventricular system and basal cisterns are kirk nt. Mild small vessel changes with mild parenchymal volume loss. No extra-axial fluid collections. No evidence of mass or mass effect. Vascular calcification. Paranasal sinuses and mastoid air cells are well aerated. .Normal visualized soft tissues. CT/CT head wo con* [id number] IMPRESSION: 1. No evidence of intracranial hemorrhage or mass effect. 2. No acute intracranial findings.
--- NOTE | 2024-01-30 07:22 | ED_ITS ---
HPI - Fall General: Chief Complaint: Back Pain/Injury Stated Complaint: fall. neck/back pain. Time Seen by Provider: 01/30/24 07:19 Source: patient and EMS Mode of arrival: EMS Limitations: no limitations History of Present Illness: 58-year-old male states he tripped over his dog this morning and fell backwards. Ground-level fall states he did hit his head denies any loss conscious but has a headache neck pain along with low back pain denies any other injuries he rates his pain a 6 out of 10 currently. It is worse with movement. Associated symptoms-after fall: Reports headache(s) and neck pain; Denies abdominal pain or chest pain Related Data Home Medications Medication Instructions Recorded Confirmed metoprolol tartrate 50 mg tablet 50 mg PO BID blood pressure 02/03/23 01/27/24 Tylenol Extended Release 1,000 mg PO BID 10/03/23 01/27/24 carbidopa 25 mg-levodopa 250 mg 2 tab PO DAILY 10/03/23 01/27/24 tablet Previous Rx's Medication Instructions Recorded omeprazole 40 mg capsule,delayed 40 mg PO QAM #90 caps 07/17/23 release indomethacin 25 mg/5 mL oral 25 mg (5 mL) PO TID gout #237 mL 08/16/23 suspension potassium chloride 20 mEq oral 20 meq PO BID potassium #100 ea 09/18/23 packet azelastine 137 mcg (0.1 %) nasal 2 spray intranasal BID congestion 10/11/23 spray #30 mL guaifenesin 600 mg tablet, 600 mg PO BID congestion #20 tabs 10/11/23 extended release 12 hr febuxostat 40 mg tablet 40 mg PO DAILY lower uric acid #30 11/27/23 tabs magnesium oxide 400 mg PO DAILY #30 tabs 01/27/24 Allergies Allergy/AdvReac Type Severity Reaction Status Date / Time allopurinol Allergy Unknown Unknown Verified 01/30/24 07:26 ketorolac [From Toradol] Allergy Unknown Unknown Verified 01/30/24 07:26 orphenadrine [From Norflex] Allergy Unknown Unknown Verified 01/30/24 07:26 promethazine [From Phenergan] Allergy Unknown Unknown Verified 01/30/24 07:26 tramadol Allergy Unknown Unknown Verified 01/30/24 07:26 hydrocodone Allergy Unknown Verified 01/30/24 07:26 methadone Allergy Unknown Verified 01/30/24 07:26 oxycodone Allergy Unknown Verified 01/30/24 07:26 narcotics Allergy Severe Unknown Uncoded 01/30/24 07:26 Review of Systems Const: Denies: fever(s) or chills Eyes: Denies: blurry vision or eye discomfort ENMT: Denies: throat pain or dental pain Card: Denies: chest pain Resp: Denies: dyspnea GI: Denies: abdominal pain, nausea, vomiting or diarrhea Musc: Reports: neck pain and back pain Skin/Breast: Denies: rash Neuro: Reports: headache(s) PFS ED PFSH: Medical History (Updated 01/30/24 @ 08:17 by Heidi Abreu MD) PVCs (premature ventricular contractions) Headaches due to old head injury Chronic confusion Nasal sinus congestion Pre-diabetes TIA (transient ischemic attack) Fusion of lumbar spine Chewing tobacco nicotine dependence Age [age] (currently) Hypertension CAD (coronary artery disease) Anxiety and depression DDD (degenerative disc disease) Migraines Osteoarthritis Gout Parkinsons disease Surgical History History of total knee arthroplasty Left TKA x2 revision needed due to loosening of hardware, no history of infection Hx of bilateral hip replacements 3 on right hip and 0 left Hx of colonoscopy with polypectomy 2009, repeat 12/27/2022 with polyps, next in 5 years History of esophagogastroduodenoscopy (EGD) 2009, repeat 12/27/2022 no abnormality, bx done S/P cervical spinal fusion Status post surgery History of back surgery x6 different surgeries on the spine Family History Father Stroke Heart attack Brother Hypertension Sister Heart attack Social History Smoking and tobacco/nicotine status: current every day tobacco/nicotine user (CHEW) smokeless tobacco Smokeless tobacco user: chewing tobacco Alcohol intake: former Substance/Drug Use: current Substance/Drug use frequency: other Other substance/drug use details: medical marijuana Caregiver/support person: No Lives independently: Yes Household members: none Marital status: Single Highest education level completed: Some College, No Degree service: No Current occupational status: retired and disabled Do you think of yourself as: Straight/Heterosexual Current gender identity: Male Physical Exam Const: COMMON NORMALS: no acute distress, patient oriented x3 and healthy appearing HENMT: COMMON NORMALS: normocephalic and atraumatic HEAD & SCALP: normocephalic and atraumatic Eye: COMMON NORMALS: Equal, round and reactive pupils present and EOMs intact bilaterally PUPIL: Yes Equal, round and reactive pupils present Neck/C-Spine: OTHER: in c colar Chest: COMMONS NORMALS: normal inspection of the chest Resp: COMMON NORMALS: normal respiratory effort Cardio: COMMON NORMALS: regular rate, regular rhythm and No murmurs present (Cardio) RATE: regular rate RHYTHM: regular rhythm GI: COMMON NORMALS: Normal to inspection, nondistended, normoactive bowel sounds present, Soft to palpation, non-tender and no masses PALPATION: Yes Soft to palpation Back/Pelvis: OTHER: Some lumbar tenderness no tenderness over thoracic spine Extremity: COMMON NORMALS: normal to inspection and full ROM Neuro: COMMON NORMALS: patient oriented x3, moves all extremities and no focal motor deficits Psych: COMMON NORMALS: mental status grossly normal, Normal thought process present and cooperative THOUGHT PROCESS: Normal thought process present Skin: COMMON NORMALS: no rashes or lesions noted and no wounds GENERAL SKIN EXAM: no rashes or lesions noted Course Vital Signs: Vital signs: Vital Signs Temperature 97.7 F 01/30/24 07:20 Pulse Rate 93 01/30/24 07:20 Respiratory Rate 16 01/30/24 07:59 Blood Pressure 148/95 01/30/24 07:20 Pulse Oximetry 92 01/30/24 07:59 Oxygen Delivery Me thod Room Air 01/30/24 07:20 MDM - Fall Medical Decision Making Patient presents with close head injury along with neck and back pain from a fall imaging here is all normal he is well-appearing here he is stable for discharge Medical Records I reviewed the patient's medical records. Lab Data Radiology Impressions Cervical Spine CT 01/30/24 07:21 IMPRESSION: No evidence of acute fracture or dislocation. Head CT 01/30/24 07:21 IMPRESSION: 1. No evidence of intracranial hemorrhage or mass effect. 2. No acute intracranial findings. Lumbar Spine CT 01/30/24 07:21 IMPRESSION: 1. No acute fractures. 2. Stable postoperative changes LEFT pedicle screw fixation L4-5 with interbody fusion. 3. Disc base narrowing with disc bulging worse L2-L3 and L3-L4 with moderate central canal stenosis similar to previous All radiology interpretation(s) finalized by discharge Discharge Plan Discharge Patient Disposition: Home Clinical Impression: Fall, Closed head injury, Back pain Condition: Stable Prescriptions: No Action magnesium oxide 400 mg magnesium tablet 400 mg PO DAILY Qty: 30 1RF indomethacin 25 mg/5 mL suspension 25 mg PO TID Qty: 237 1RF Rx Instructions: take with food for 10 days, discontinue and can repeat for gout flareups azelastine 137 mcg (0.1 %) aerosol,spray 2 spray intranasal BID Qty: 30 1RF Rx Instructions: administer into each nostril guaifenesin 600 mg tablet extended release 12hr 600 mg PO BID Qty: 20 0RF omeprazole 40 mg capsule,delayed release(DR/EC) 40 mg PO QAM Qty: 90 1RF potassium chloride 20 mEq packet 20 meq PO BID Qty: 100 5RF febuxostat 40 mg tablet 40 mg PO DAILY Qty: 30 5RF metoprolol tartrate 50 mg tablet 50 mg PO BID carbidopa-levodopa 25-250 mg tablet 2 tab PO DAILY Tylenol Extended Release capsule 1,000 mg PO BID Discharge Orders: Discharge ED (Routine); Ordered 01/30/24 Ordered By: Heidi Abreu Referrals: Wali Moon MD [Primary Care Provider] - Discharge Diet: Advance as tolerated Discharge Activity: Resume usual activity Patient Instructions: Head Injury (ED), Back Pain (ED) 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
[2024-01-30 07:59] VITALS: RESP 16; O2SAT 92
[2024-01-30] MEDS: morphine 4 mg/mL SDV 1 mL IM (07:59)
[2024-01-30] MEDS: ondansetron 2 mg/ML SDV 2 mL 4 MG IM (07:59)
--- NOTE | 2024-01-30 08:59 | PC.NURSE ---
PT refused benadryl and reglan.
[2024-01-30 09:06] VITALS: BP 158/97; PULSE 81; O2SAT 91
== END 2024-01-30 09:07 | disposition home or self-care (01) ==
PROVIDERS: Emergency Provider Emergency Medicine; PCP Family Medicine Adult Medicine
DX: S09.8XXA Other specified injuries of head, initial encounter (principal); M54.9 Dorsalgia, unspecified; F17.220 Nicotine dependence, chewing tobacco, uncomplicated; Z86.73 Personal history of transient ischemic attack (TIA), and cerebral infarction without residual deficits; I10 Essential (primary) hypertension; I25.10 Atherosclerotic heart disease of native coronary artery without angina pectoris; G20.A1 Parkinson's disease without dyskinesia, without mention of fluctuations; Z96.643 Presence of artificial hip joint, bilateral; W01.0XXA Fall on same level from slipping, tripping and stumbling without subsequent striking against object, initial encounter
CPT/HCPCS: 70450; 72125; 72131; 96372; 99284; J2270; J2405

== ENCOUNTER 2024-03-06 13:47 | Emergency (ER) | payer MEDICARE, MEDICAID, SELFPAY ==
[2024-03-06 13:48] VITALS: BP 160/109; PULSE 99; RESP 17; TEMP 36.5; O2SAT 92; BMI 28.3
[2024-03-06 14:05] VITALS: BP 154/103; PULSE 98; RESP 16; O2SAT 94
--- NOTE | 2024-03-06 14:33 | CTR_ITS ---
PROCEDURE INFORMATION: Exam: CT Thoracic Spine Without Contrast Exam date and time: 03/06/2024 3:42 PM Age: 58 years old Clinical indication: Injury or trauma; Fall; Blunt trauma (contusions or hematomas); Additional info: Fall with injury TECHNIQUE: Imaging protocol: Computed tomography of the thoracic spine without contrast. Radiation optimization: All CT scans at this facility use at least one of these dose optimization techniques: automated exposure control; mA and/or kV adjustment per patient size (includes targeted exams where dose is matched to clinical indication); or iterative reconstruction. COMPARISON: CT thoracic spin wo con* [id number] 02/03/2023 10:43 AM RADIATION DOSE METRICS: Total DLP (mGy-cm): 857.4 FINDINGS: Bones/joints: Cervicothoracic fusion noted extending inferiorly to T1. Alignment is normal. Diffuse degenerative disc disease. No fracture. Soft tissues: Unremarkable. CT/CT thoracic spin wo con* [id number] IMPRESSION: No acute bony abnormality.
--- NOTE | 2024-03-06 14:33 | XR_ITS ---
WS: [id number] Left hip, 2 views, 03/06/2024 Clinical Data: trauma/fall Comparison: Bilateral hips, 09/02/2023 Findings: No fractures or dislocations are seen. The hip joint is intact. The soft tissues are not remarkable. The adjacent pelvis is normal. XR/XR hip LT 2-3V wo/w pel* [id number] Impression: Negative left hip. Tonnis classification:
--- NOTE | 2024-03-06 14:33 | XR_ITS ---
WS: [id number] Portable AP supine chest, 03/06/2024 Clinical Data: trauma/fall Comparison: Portable chest, 12/13/2023 Findings: No nodules, masses or effusions are seen. The heart is normal. The pulmonary vascularity is not increased. No pneumonia or pneumothorax is seen. There is an anterior cervical disc fusion and p osterior cervical fusion. XR/XR chest 1V portable [id number] Impression: Negative chest.
--- NOTE | 2024-03-06 14:33 | CTR_ITS ---
PROCEDURE INFORMATION: Exam: CT Lumbar Spine Without Contrast Exam date and time: 03/06/2024 3:42 PM Age: 58 years old Clinical indication: Injury or trauma; Fall; Blunt trauma (contusions or hematomas); Prior surgery; Surgery date: 6+ months; Surgery type: Fusion; Additional info: Fall with injury TECHNIQUE: Imaging protocol: Computed tomography of the lumbar spine without contrast. Radiation optimization: All CT scans at this facility use at least one of these dose optimization techniques: automated exposure control; mA and/or kV adjustment per patient size (includes targeted exams where dose is matched to clinical indication); or iterative reconstruction. COMPARISON: CT lumbar spine wo con* [id number] 01/30/2024 7:43 AM RADIATION DOSE METRICS: Total DLP (mGy-cm): 739.3 FINDINGS: Bones/joints: Previous fusion L4-L5. Normal alignment. No fracture. Diffuse degenerative disc disease and facet arthropathy. Moderate stenosis L2-L3 and L3-L4. Soft tissues: Unremarkable. CT/CT lumbar spine wo con* [id number] IMPRESSION: No acute findings.
--- NOTE | 2024-03-06 14:33 | CTR_ITS ---
PROCEDURE INFORMATION: Exam: CT Cervical Spine Without Contrast Exam date and time: 03/06/2024 3:37 PM Age: 58 years old Clinical indication: Injury or trauma; Fall; Blunt trauma; Prior surgery; Surgery date: 6+ months; Surgery type: Fusion; Additional info: Fall with loc/head injury TECHNIQUE: Imaging protocol: Computed tomography of the cervical spine without contrast. Radiation optimization: All CT scans at this facility use at least one of these dose optimization techniques: automated exposure control; mA and/or kV adjustment per patient size (includes targeted exams where dose is matched to clinical indication); or iterative reconstruction. COMPARISON: CT cervical spin wo con* [id number] 01/30/2024 7:36 AM RADIATION DOSE METRICS: Total DLP (mGy-cm): 840.4 FINDINGS: Bones: Previous fusion C4 through T1. No subluxation. No fracture. No central canal stenosis. Lungs: Lung apices are normal. Soft tissues: Unremarkable. CT/CT cervical spin wo con* [id number] IMPRESSION: No acute findings.
--- NOTE | 2024-03-06 14:33 | XR_ITS ---
WS: [id number] Left shoulder, 3 views, 03/06/2024 Clinical Data: trauma/ fall Comparison: Left shoulder, 05/31/2023 Findings: No fractures or dislocations are seen. The AC joint shows unchanged osteoarthritis. There is an anter ior cervical disc fusion and posterior cervical fusion. The adjacent left clavicle, left scapula and ribs are normal. The soft tissues are unremarkable. XR/XR shoulder LT min 2V* [id number] Impression: Negative left shoulder.
--- NOTE | 2024-03-06 14:33 | CTR_ITS ---
PROCEDURE INFORMATION: Exam: CT Head Without Contrast Exam date and time: 03/06/2024 3:37 PM Age: 58 years old Clinical indication: Injury or trauma; Fall; Blunt trauma (contusions or hematomas); With loss of consciousness; Loss of consciousness for 30 minutes or less; Additional info: Fall with loc/head injury TECHNIQUE: Imaging protocol: Computed tomography of the head without contrast. Radiation optimization: All CT scans at this facility use at least one of these dose optimization techniques: automated exposure control; mA and/or kV adjustment per patient size (includes targeted exams where dose is matched to clinical indication); or iterative reconstruction. COMPARISON: CT head wo con* [id number] 01/30/2024 7:36 AM RADIATION DOSE METRICS: Total DLP (mGy-cm): 1087.8 FINDINGS: Brain: No intracranial hemorrhage. There is global parenchymal volume loss. Periventricular white matter hypoattenuation is nonspecific but most likely due to small vessel disease. No evidence of acute territorial infarct or cerebral edema. No mass effect or midline shift. Cerebral ventricles: Prominent ventricles likely secondary to volume loss. Paranasal sinuses: Visualized sinuses are unremarkable. No fluid levels. Mastoid air cells: Visualized mastoid air cells are well aerated. Bones: Unremarkable. No acute fracture. Soft tissues: Unremarkable. CT/CT head wo con* [id number] IMPRESSION: No acute intracranial findings.
--- NOTE | 2024-03-06 14:33 | XR_ITS ---
WS: [id number] Right hip, 2 views, AP pelvis, 03/06/2024 Clinical Data: trauma/fall Comparison: Bilateral hips, 09/02/2023 Findings: The right hip arthroplasty remains in good position. No periprosthetic fractures or loosening is seen . The adjacent pelvis is intact. The SI joints and pubic symphysis are unremarkable. There is a left- sided L5-S1 posterior fusion. The bladder is partly full. The left hip is normal. XR/XR hip RT 2-3V wo/w pel* [id number] Impression: 1. Stable right hip arthroplasty. 2. Negative for pelvic or hip fracture.
--- NOTE | 2024-03-06 14:40 | ED_ITS ---
HPI - Fall 2 General: Chief Complaint: Fall Stated Complaint: fall Time Seen by Provider: 03/06/24 13:52 History of Present Illness: 58-year-old male presents the ER chief c omplaint of a fall from standing just prior to arrival striking his head he had a positive loss of consciousness he is on no blood thinning agents patient Dors he lost his footing as he has a known history of Parkinson disease patient is unaware how long she was unresponsive for he presents to the ER chief complaint of left shoulder pain he endorses he that shoulder may have popped out that he popped it back in he does not endorse any prior history of dislocation of the left shoulder however has a recent prior history of right shoulder dislocation he also complains of bilateral hip pain patient presents to ER by EMS for further assessment management he was provided fentanyl prior to to evaluation. Associated symptoms-after fall: Reports headache(s) and neck pain; Denies abdominal pain or chest pain Related Data Home Medications Medication Instructions Recorded Confirmed metoprolol tartrate 50 mg tablet 50 mg PO BID blood pressure 02/03/23 03/06/24 carbidopa 25 mg-levodopa 250 mg 2 tab PO QID 03/06/24 03/06/24 tablet indomethacin 25 mg capsule 25 mg PO TID PRN gout flares 03/06/24 03/06/24 prednisone 20 mg tablet 20 mg PO PRN PRN gout flares 03/06/24 03/06/24 Previous Rx's Medication Instructions Recorded omeprazole 40 mg capsule,delayed 40 mg PO QAM #90 caps 07/17/23 release potassium chloride 20 mEq oral 20 meq PO BID potassium #100 ea 09/18/23 packet methocarbamol 500 mg tablet 500 mg PO Q6H PRN spasms/ pain #20 03/06/24 tabs naproxen 500 mg tablet (Naprosyn) 500 mg PO BID PRN pain #20 tabs 03/06/24 prednisone 10 mg tablets in a dose 10 mg PO DIRECTED #21 ea 03/06/24 pack Allergies Allergy/AdvReac Type Severity Reaction Status Date / Time allopurinol Allergy Unknown Unknown Verified 01/30/24 07:26 ketorolac [From Toradol] Allergy Unknown Unknown Verified 01/30/24 07:26 orphenadrine [From Norflex] Allergy Unknown Unknown Verified 01/30/24 07:26 promethazine [From Phenergan] Allergy Unknown Unknown Verified 01/30/24 07:26 tramadol Allergy Unknown Unknown Verified 01/30/24 07:26 hydrocodone Allergy Unknown Verified 01/30/24 07:26 methadone Allergy Unknown Verified 01/30/24 07:26 oxycodone Allergy Unknown Verified 01/30/24 07:26 narcotics Allergy Severe Unknown Uncoded 01/30/24 07:26 Review of Systems 2 General: Reports: 10 or more systems reviewed and unremarkable except in HPI and below Const: Denies: fever(s), chills, fatigue or malaise Eyes: Denies: change in vision or blurry vision Card: Denies: chest pain or palpitations Resp: Denies: dyspnea or productive cough GI: Denies: abdominal pain, nausea or vomiting : Denies: flank pain Musc: Reports: neck pain, back pain, extremity pain and joint pain; Denies: extremity swelling Skin/Breast: Denies: rash or pruritus Neuro: Reports: headache(s) Psych: Denies: anxiety or depression [place]/Lymph: Denies: easy bleeding All/Imm: Denies: urticaria, throat swelling or facial swelling PFSH ED 2 PFSH: Medical History PVCs (premature ventricular contractions) Headaches due to old head injury Chronic confusion Nasal sinus congestion Pre-diabetes TIA (transient ischemic attack) Fusion of lumbar spine Chewing tobacco nicotine dependence Age [age] (currently) Hypertension CAD (coronary artery disease) Anxiety and depression DDD (degenerative disc disease) Migraines Osteoarthritis Gout Parkinsons disease Surgical History History of total knee arthroplasty Left TKA x2 revision needed due to loosening of hardware, no history of infection Hx of bilateral hip replacements 3 on right hip and 0 left Hx of colonoscopy with polypectomy 2009, repeat 12/27/2022 with polyps, next in 5 years History of esophagogastroduodenoscopy (EGD) 2009, repeat 12/27/2022 no abnormality, bx done S/P cervical spinal fusion Status post surgery History of back surgery x6 different surgeries on the spine Family History Father Stroke Heart attack Brother Hypertension Sister Heart attack Social History Smoking and tobacco/nicotine status: current every day tobacco/nicotine user (CHEW) smokeless tobacco Smokeless tobacco user: chewing tobacco Alcohol intake: former Substance/Drug Use: current Substance/Drug use frequency: other Other substance/drug use details: medical marijuana Caregiver/support person: No Lives independently: Yes Household members: none Marital status: Single Highest education level completed: Some College, No Degree service: No Current occupational status: retired and disabled Do you think of yourself as: Straight/Heterosexual Current gender identity: Male Physical Exam 2 Const: COMMON NORMALS: no acute distress, patient oriented x3 and healthy appearing OTHER: Mild bruising contusion abrasion appreciated to left lateral forehead no obvious crepitus appreciated HENMT: COMMON NORMALS: normocephalic and atraumatic HEAD & SCALP: n ormocephalic and atraumatic Eye: COMMON NORMALS: Equal, round and reactive pupils present and EOMs intact bilaterally PUPIL: Yes Equal, round and reactive pupils present Neck/C-Spine: COMMON NORMALS: full ROM, supple and no JVD Lymph: LYMPHATIC: no lymphadenopathy noted Chest: COMMONS NORMALS: normal inspection of the chest and normal palpation of entire chest wall Resp: COMMON NORMALS: normal respiratory effort, No retractions and clear to auscultation bilaterally EFFORT & INSPECTION: Yes able to speak in complete sentences and Yes symmetric chest movement AUSCULTATION: clear to auscultation bilaterally Cardio: COMMON NORMALS: no JVD, regular rate and regular rhythm RATE: r egular rate RHYTHM: regular rhythm GI: COMMON NORMALS: Normal to inspection, nondistended, normoactive bowel sounds present, Soft to palpation and non-tender INSPECTION: Yes normal to inspection PALPATION: Yes Soft to palpation : COMMON NORMALS: Yes no CVA tenderness BLADDER/KIDNEY EXAM: Yes no CVA tenderness Back/Pelvis: COMMON NORMALS: no CVA tenderness Extremity: COMMON NORMALS: negative for normal to inspection and negative for full ROM (Reduced range of motion of pain appreciated to the left shoulder neurovascu) NARRATIVE EXTREMITY EXAM: Reduced range of motion pain appreciated left shoulder neurovascular tact distally reduced range of motion of both hips noted with questionable subjective numbness going down the left leg otherwise unremarkable patient is complaining of cervical pain patient is currently in a collar in C-spine precaution.s Neuro: COMMON NORMALS: patient oriented x3, CN's II-XII intact bilaterally, moves all extremities and no focal motor deficits Psych: COMMON NORMALS: mental status grossly normal, Normal thought process present, cooperative and normal affect THOUGHT PROCESS: Normal thought process present Skin: COMMON NORMALS: no rashes or lesions noted GENERAL SKIN EXAM: no rashes or lesions noted Course 2 Vital Signs: Vital signs: Vital Signs Temperature 97.7 F 03/06/24 13:48 Pulse Rate 87 03/06/24 16:00 Respiratory Rate 16 03/06/24 16:12 Blood Pressure 143/96 03/06/24 16:00 Pulse Oximetry 96 03/06/24 16:12 Oxygen Delivery Me thod Room Air 03/06/24 16:00 MDM - Fall Medical Decision Making Due to patient's symptoms and condition lab work and imaging will be obtained will continue to follow. Patient CT imaging and x-ray imaging all came back unremarkable no acute underlying fractures noted patient will be provided with a limited prescription of Robaxin as well as naproxen for his pain and discomfort did advise further follow-up with primary care in 3 to 5 days in which he was advised return the interim if any of his symptoms persist or worse. Lab Data 03/06/24 14:48 03/06/24 16:10 Radiology Impressions Cervical Spine CT 03/06/24 14:33 IMPRESSION: No acute findings. Chest X-Ray 03/06/24 14:33 Impression: Negative chest. Head CT 03/06/24 14:33 IMPRESSION: No acute intracranial findings. Hip/Pelvis X-Ray 03/06/24 14:33 Impression: Negative left hip. Tonnis classification: Lumbar Spine CT 03/06/24 14:33 IMPRESSION: No acute findings. Shoulder X-Ray 03/06/24 14:33 Impression: Negative left shoulder. Thoracic Spine CT 03/06/24 14:33 IMPRESSION: No acute bony abnormality. Laboratory Results WBC 6.37 10^3/uL (3.29-11.43) 03/06/24 14:48 RBC 6.03 10^6/uL (3.85-5.65) H 03/06/24 14:48 Hgb 17.30 g/dL (11.27-16.99) H 03/06/24 14:48 Hct 52.6 % (37-53) 03/06/24 14:48 MCV 87.2 fl (82-101) 03/06/24 14:48 MCH 28.7 pg (27-33) 03/06/24 14:48 MCHC 32.9 g/dL (30-55) 03/06/24 14:48 RDW 14.3 % (12.1-15.1) 03/06/24 14:48 Plt Count 215 10^3/cmm (157-399) 03/06/24 14:48 MPV 9.7 fL (7.4-10.4) 03/06/24 14:48 Neut % (Auto) 69.0 % 03/06/24 14:48 Lymph % (Auto) 21.8 % 03/06/24 14:48 [place] % (Auto) 6.8 % 03/06/24 14:48 Eos % (Auto) 1.4 % 03/06/24 14:48 Baso % (Auto) 0.5 % 03/06/24 14:48 Neut # (Auto) 4.40 10^3/uL (1.8-7.7) 03/06/24 14:48 Lymph # (Auto) 1.4 10^3/uL (0.8-4.8) 03/06/24 14:48 [place] # (Auto) 0.4 10^3/uL (0.2-0.9) 03/06/24 14:48 Eos # (Auto) 0.1 10^3/uL (0.0-0.8) 03/06/24 14:48 Baso # (Auto) 0.0 10^3/uL (0.0-0.1) 03/06/24 14:48 Nucleated RBC % (auto) 0 % 03/06/24 14:48 Nucleated RBCs # 0.0 /100WBC 03/06/24 14:48 Sodium 134 mmol/L (136-145) L 03/06/24 16:10 Potassium 3.9 mmol/L (3.5-5.1) 03/06/24 16:10 Chloride 100 mmol/L (98-107) 03/06/24 16:10 Carbon Dioxide 22 mmol/L (22-29) 03/06/24 16:10 Anion Gap 15.9 (5-19) 03/06/24 16:10 BUN 9 mg/dL (6-20) 03/06/24 16:10 Creatinine 0.9 mg/dL (0.7-1.2) 03/06/24 16:10 GFR Calculation 86.4 mL/min (90-130) L 03/06/24 16:10 Glucose 88 mg/dL (65-115) 03/06/24 16:10 Calculated Osmolality 276 mOsm/kg (285-295) L 03/06/24 16:10 Calcium 9.0 mg/dL (8.5-10.5) 03/06/24 16:10 Total Bilirubin 0.4 mg/dL (0.15-1.2) 03/06/24 16:10 AST 13 U/L (0-40) 03/06/24 16:10 ALT < 5 U/L (0-41) 03/06/24 16:10 Alkaline Phosphatase 76 U/L (40-130) 03/06/24 16:10 Total Protein 6.8 g/dL (6.6-8.7) 03/06/24 16:10 Albumin 3.5 g/dL (3.5-5.2) 03/06/24 16:10 Globulin 3.3 g/dL (1.3-4.6) 03/06/24 16:10 Urine Color Yellow (Yellow) 03/06/24 16:50 Urine Appearance Clear (CLEAR) 03/06/24 16:50 Urine pH 5.5 (5-7) 03/06/24 16:50 Ur Specific [place] 1.010 (1.005-1.030) 03/06/24 16:50 Urine Protein Negative (Negative) 03/06/24 16:50 Urine Glucose (UA) Negative (Normal) 03/06/24 16:50 Urine Ketones Negative (Negative) 03/06/24 16:50 Urine Blood Negative (Negative) 03/06/24 16:50 Urine Nitrate Negative (Negative) 03/06/24 16:50 Urine Bilirubin Negative (Negative) 03/06/24 16:50 Urine Urobilinogen 0.2 mg/dL (Negative) 03/06/24 16:50 Ur Leukocyte Esterase Negative (Negative) 03/06/24 16:50 Urine RBC 0-2 /hpf (0-2) 03/06/24 16:50 Urine WBC 0-5 /hpf (0-5) 03/06/24 16:50 Ur Squamous Epith Cells 0-5 /hpf (0-5) 03/06/24 16:50 Amorphous Sediment Not Reportable 03/06/24 16:50 Urine Bacteria None seen /hpf (NONE) 03/06/24 16:50 Hyaline Casts 3.30 /lpf 03/06/24 16:50 Urine Opiates Screen Negative ng/mL (Negative) 03/06/24 16:50 Ur Barbiturates Screen Negative ng/mL (Negative) 03/06/24 16:50 Ur Phencyclidine Scrn Negative ng/mL (Negative) 03/06/24 16:50 Ur Amphetamines Screen Negative ng/mL (Negative) 03/06/24 16:50 U Benzodiazepines Scrn Negative ng/mL (Negative) 03/06/24 16:50 Urine Cocaine Screen Negative ng/mL (Negative) 03/06/24 16:50 U Marijuana (THC) Screen Positive ng/mL (Negative) H 03/06/24 16:50 All radiology interpretation(s) finalized by discharge Discharge Plan Discharge Patient Disposition: Home Clinical Impression: Fall from standing, Acute cervical myofascial strain, Left shoulder strain, Acute lumbar myofascial strain, Closed head injury Condition: Stable Prescriptions: New methocarbamol 500 mg tablet 500 mg PO Q6H PRN (Reason: spasms/ pain) Qty: 20 0RF prednisone 10 mg tablets,dose pack 10 mg PO DIRECTED Qty: 21 0RF Rx Instructions: see taper instructions naproxen [Naprosyn] 500 mg tablet 500 mg PO BID PRN (Reason: pain) Qty: 20 0RF No Action omeprazole 40 mg capsule,delayed release(DR/EC) 40 mg PO QAM Qty: 90 1RF potassium chloride 20 mEq packet 20 meq PO BID Qty: 100 5RF metoprolol tartrate 50 mg tablet 50 mg PO BID prednisone 20 mg Tablet 20 mg PO PRN PRN (Reason: gout flares) indomethacin 25 mg capsule 25 mg PO TID PRN (Reason: gout flares) carbidopa-levodopa 25-250 mg tablet 2 tab PO QID Discharge Orders: Discharge ED (Routine); Ordered 03/06/24 Ordered By: Chandana Tyler Referrals: Wali Moon MD [Primary Care Provider] - 4-7 days Discharge Diet: Advance as tolerated Discharge Activity: Increase activity as tolerated Patient Instructions: Rotator Cuff Injury (ED), Concussion (ED), Head Injury (ED), Fall Prevention (ED), Rotator Cuff Injury Exercises (DC), Cervical Strain Activity Restrictions/Additional Instructions: Please further follow-up with primary care doctor in 3 to 5 days, please take medications as prescribed which please return the interim if any of your symptoms persist or worse Coding Level of Care Code ED Belt Builder Helper for Mu Pressley
[2024-03-06] MEDS: sodium chloride 0.9% 500 ML 999 ML IV (14:54)
[2024-03-06] MEDS: ondansetron 2 mg/ML SDV 2 mL 4 MG IVP (14:54)
[2024-03-06 14:55] LABS: Basophils % 0.5 %; Eosinophils # 0.1 10^3/uL (0.0-0.8); Eosinophils % 1.4 %; Hematocrit 52.6 % (37-53); Lymphocytes # 1.4 10^3/uL (0.8-4.8); Lymphocytes % 21.8 %; Mean Corpuscular HGB Conc 32.9 g/dL (30-55); Mean Corpuscular Hemoglobin 28.7 pg (27-33); Mean Corpuscular Volume 87.2 fl (82-101); Mean Platelet Volume 9.7 fL (7.4-10.4); Monocytes # 0.4 10^3/uL (0.2-0.9); Monocytes % 6.8 %; Nucleated Red Blood Cells % 0 %; Platelet Count 215 10^3/cmm (157-399); Red Blood Count 6.03 10^6/uL (3.85-5.65); Red Cell Distribution Width 14.3 % (12.1-15.1); White Blood Count 6.37 10^3/uL (3.29-11.43)
[2024-03-06 16:00] VITALS: BP 143/96; PULSE 87; RESP 16; O2SAT 96
[2024-03-06 16:12] VITALS: RESP 16; O2SAT 96
[2024-03-06] MEDS: fentaNYL 50 mcg/mL INJ 2mL IVP (16:12)
--- NOTE | 2024-03-06 16:22 | PC.NURSE ---
Per order Dr Tyler, can remove patients c- collar. Collar removed at this time.
[2024-03-06 16:42] LABS: Alanine Aminotransferase < 5 U/L (0-41); Albumin Level 3.5 g/dL (3.5-5.2); Alkaline Phosphatase 76 U/L (40-130); Blood Urea Nitrogen 9 mg/dL (6-20); Carbon Dioxide 22 mmol/L (22-29); Chloride 100 mmol/L (98-107); Creatinine Clr Calc Pharmacy 84.6805; Globulin 3.3 g/dL (1.3-4.6); Glomerular Filtration Rate 86.4 mL/min (90-130); Glucose 88 mg/dL (65-115); Osmolality Calculated 276 mOsm/kg (285-295); Sodium 134 mmol/L (136-145); Total Bilirubin 0.4 mg/dL (0.15-1.2); Total Protein 6.8 g/dL (6.6-8.7)
[2024-03-06 16:44] LABS: Anion Gap 15.9 (5-19); Aspartate Amino Transferase 13 U/L (0-40); Potassium 3.9 mmol/L (3.5-5.1)
[2024-03-06 16:58] LABS: Bilirubin Urine Negative (Negative); Blood Urine Negative (Negative); Glucose Urine UA Negative (Normal); Ketones Urine Negative (Negative); Leukocyte Esterase Urine Negative (Negative); Nitrate Urine Negative (Negative); Protein Urine Negative (Negative); Urine Appearance Clear (CLEAR); Urine Color Yellow (Yellow); Urobilinogen Urine 0.2 mg/dL (Negative); pH Urine 5.5 (5-7)
[2024-03-06 17:03] LABS: Add Urine Microscopic? YES; Bacteria Urine None Seen /hpf; RBC Urine 0-2 /hpf (0-2); Squamous Epithelial Cell Urine 0-5 /hpf (0-5); WBC Urine 0-5 /hpf (0-5)
[2024-03-06 17:06] LABS: Amphetamines Screen Urine Negative (Negative); Barbiturates Screen Urine Negative (Negative); Benzodiazepines Screen Urine Negative (Negative); Cocaine Screen Urine Negative (Negative); Opiate Screen Urine Negative (Negative); PCP Screen Urine Negative (Negative); THC Screen Urine Positive (Negative)
[2024-03-06 17:34] VITALS: BP 171/89; PULSE 81; RESP 16; O2SAT 98
== END 2024-03-06 17:35 | disposition home or self-care (01) ==
PROVIDERS: Emergency Provider Emergency Medicine; PCP Family Medicine Adult Medicine
DX: S16.1XXA Strain of muscle, fascia and tendon at neck level, initial encounter (principal); S46.912A Strain of unspecified muscle, fascia and tendon at shoulder and upper arm level, left arm, initial encounter; S39.012A Strain of muscle, fascia and tendon of lower back, initial encounter; S00.81XA Abrasion of other part of head, initial encounter; F17.220 Nicotine dependence, chewing tobacco, uncomplicated; Z86.73 Personal history of transient ischemic attack (TIA), and cerebral infarction without residual deficits; I10 Essential (primary) hypertension; I25.10 Atherosclerotic heart disease of native coronary artery without angina pectoris; G20.A1 Parkinson's disease without dyskinesia, without mention of fluctuations; W18.39XA Other fall on same level, initial encounter
CPT/HCPCS: 36415; 70450; 71045; 72125; 72128; 72131; 73030; 73502; 80053; 80306; 81001; 85025; 96361; 96374; 96375; 99285; J2405; J3010; J7040